=== PATIENT | male | born 1965 | race Caucasian/White ===

== ENCOUNTER → 2017-02-28 | Outpatient (CLI) | payer OTHER ==
--- NOTE | 2017-02-28 11:37 | XR ---
EXAMINATION TYPE: XR cervical spine comp DATE OF EXAM: 02/28/2017 TECHNIQUE: Frontal, lateral, oblique, swimmers, and open mouth view of the cervical spine are obtaine d. HISTORY: R52 neck pain COMPARISON: None FINDINGS: The cervical spine is visualized in its entirety from C1 thru the top of T1 level, it is s atisfactory in alignment without evidence of acute fracture or dislocation. The pre-vertebral soft t issue appears within normal limits. The C1-C2 articulation is within normal limits on the open mouth view. Multilevel uncovertebral hypertrophy and facet arthropathy are identified. This results in mild to mo derate neural foraminal narrowing at C5-6 on the right and on the left. There is also straightening o f the usual cervical lordosis. Intervertebral disc space narrowing is seen at C5-C6. Incidentally not ed bilateral carotid atheromatous changes are seen, mild in degree. IMPRESSION: 1. No acute fracture or dislocation is seen in the cervical spine. 2. Mild multilevel degenerative changes of the cervical spine most exaggerated at C5-C6 resulting in bilateral mild to moderate neural foraminal narrowing. MR could be performed to evaluate for disc her niation and more accurate degree of stenosis in addition to spinal canal stenosis. 3. Straightening of usual cervical lordosis that may relate to muscular spasm or patient positioning. 4. Incidentally noted bilateral carotid atherosclerosis, mild in degree. Carotid ultrasound could be performed to evaluate for degree of stenosis of clinically indicated.
--- NOTE | 2017-02-28 12:24 | XR ---
EXAMINATION TYPE: XR thoracic spine 2V DATE OF EXAM: 02/28/2017 CLINICAL HISTORY: Fall with mid back pain. TECHNIQUE: Frontal, lateral, and swimmer's view of thoracic spine are obtained. COMPARISON: None. FINDINGS: Thoracic spine show satisfactory alignment without evidence of acute fracture or dislocatio n. Vertebral body heights and disc space heights are preserved. Visualized ribs are unremarkable. IMPRESSION: No acute fracture or dislocation is seen in the thoracic spine. MRI could be performed t o evaluate for disc herniation or spinal canal stenosis is clinically indicated.
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
== END | disposition home or self-care (01) ==
LOC: RADXRMAIN 10:04
PROVIDERS: ATTEND Internal Medicine
DX: M99.71 Connective tissue and disc stenosis of intervertebral foramina of cervical region (principal); M47.812 Spondylosis without myelopathy or radiculopathy, cervical region; M46.97 Unspecified inflammatory spondylopathy, lumbosacral region
CPT/HCPCS: 72050; 72070; 72100

== ENCOUNTER → 2017-03-22 | Outpatient (CLI) | payer OTHER ==
--- NOTE | 2017-03-22 21:01 | MR ---
EXAMINATION TYPE: MR cspine/lspine wo con DATE OF EXAM: 03/22/2017 COMPARISON: MRI lumbar spine August 02, 2010. Plain film cervical and lumbar spine February 28, 2017. HISTORY: Low back pain, Neck pain per order. Headache with neck pain since 2010 causing pain and weak ness into both arms per patient. Low back pain since 1999 and causing pain into left lower extremity per patient. TECHNIQUE: Multiplanar, multisequence imaging of the cervical and lumbar spine are performed without IV contrast. FINDINGS: C-SPINE: FINDINGS: Sagittal images of the cervical spine show the craniocervical junction to appear within nor mal limits. The cervical and upper thoracic spinal cord is normal in caliber and signal. Vertebral alignment is stable and straightened with grade 1 retrolisthesis C5 on C6 redemonstrated. The verteb ral body heights remain normal. There is mild to moderate disc space narrowing C5-C6 level redemonst rated. There are posterior disc herniations mildly effacing the anterior thecal sac at C3-C4 through C6-C7 levels. The bone marrow signal intensity is within normal limits. No significant spurring is se en. Axial images show the C2-C3 level to appear within normal limits. Axial images at C3-C4 levels show small central disc protrusion mildly effacing the anterior thecal s ac, bilateral neural foramina are patent. Axial images at C4-C5 level shows broad-based right paracentral disc protrusion mildly effacing the a nterior thecal sac. There are mild uncovertebral facet degenerative changes causing mild right greate r than left neural foraminal narrowing. Axial images at C5-C6 level show more prominent broad-based posterior disc protrusion effacing the an terior thecal sac and causing moderate to advanced bilateral neural foraminal narrowing. Axial images at C6-C7 level show prominent broad-based right paracentral disc protrusion effacing the anterolateral thecal sac and causing mild bilateral neural foraminal narrowing. Axial images at C7-T1 level are both within normal limits. IMPRESSION: Straightening of cervical spine with multilevel degenerative changes seen, most prominent findings are C5-C6 level as detailed above. L-SPINE: Sagittal images of the lumbar spine show vertebral body heights and alignment to appear stable and sa tisfactory. There is persistent disc desiccation with mild disc space narrowing at L5-S1 level otherw ise the intervertebral discs demonstrate normal heights and hydration. There is increased signal post eriorly consistent with annular tear L5-S1 level redemonstrated. No suspicious posterior disc herniat ions are seen on sagittal images. The conus medullaris remains normal in position and signal ending a t the L1 level. The bone marrow signal intensity is within normal limits. No significant spurring is present. Axial images show the T12-L1, L1-L2, L2-L3, and L3-L4 levels all to remain within normal limits. Axial images at L4-L5 level redemonstrated mild facet degenerative changes bilaterally but the spinal canal is preserved and bilateral neural foramina are patent. Axial images at L5-S1 level shows mild facet degenerative changes bilaterally. There is right paracen tral disc protrusion seen but the spinal canal is grossly preserved. There is mild right-sided neural foraminal narrowing redemonstrated. Left-sided neural foramen is patent. No suspicious retroperitoneal findings seen. Previously visualized thin walled simple cyst medially r ight kidney is not as well-seen on current study. IMPRESSION: Straightening of lumbar spine with degenerative changes lower lumbar levels most prominen t at L5-S1 level again seen. No significant progression from prior study.
== END | disposition home or self-care (01) ==
LOC: RADMRIMAIN 17:07
PROVIDERS: ATTEND Internal Medicine
DX: M47.812 Spondylosis without myelopathy or radiculopathy, cervical region (principal); M47.817 Spondylosis without myelopathy or radiculopathy, lumbosacral region
CPT/HCPCS: 72141; 72148

== ENCOUNTER → 2018-05-17 | Outpatient (CLI) | payer OTHER ==
--- NOTE | 2018-05-18 09:23 | MR ---
EXAMINATION TYPE: MR knee LT wo con DATE OF EXAM: 05/17/2018 COMPARISON: None HISTORY: LT KNEE PAIN TECHNIQUE: Multiplanar, multisequence imaging of the left knee is performed without IV contrast. FINDINGS: MEDIAL MENISCUS: Abnormal increased signal within the posterior horn of the lateral meniscus shows a complex pattern, is diffuse signal with extension to the articular surface and there is likely a post erior meniscal cyst LATERAL MENISCUS: Anterior and posterior horns are intact without tear. CRUCIATE LIGAMENTS: The anterior and posterior cruciate ligaments are intact and unremarkable. COLLATERAL LIGAMENTS: Fluid signal is present along the medial collateral ligament compatible with st rain, this thickening and some intrasubstance signal suggestive of possible partial tear EXTENSOR MECHANISM: Visualized quadriceps and patellar tendons are intact. EFFUSION: Small suprapatellar joint effusion POPLITEAL CYST: Small semimembranosus gastrocnemius cyst. TRICOMPARTMENT SPACES: CARTILAGE: Some thinning of the cartilage present in the medial compartment BONE MARROW SIGNAL: Reactive marrow signal changes present along the proximal tibia posteriorly OTHER: There is some subcutaneous edema. IMPRESSION: Tear of the posterior horn of the medial meniscus. Strain and possible partial tear medial collateral ligament
== END | disposition home or self-care (01) ==
LOC: RADMRIMAIN 13:56
PROVIDERS: ATTEND Internal Medicine
DX: S83.242A Other tear of medial meniscus, current injury, left knee, initial encounter (principal)

== ENCOUNTER → 2018-05-31 | Outpatient (CLI) | payer OTHER ==
--- NOTE | 2018-05-31 15:52 | MR ---
EXAMINATION TYPE: MR cspine/lspine wo con DATE OF EXAM: 05/31/2018 COMPARISON: None HISTORY: Dorsalgia, unspecified / Neck pain TECHNIQUE: Multiplanar, multisequence imaging of the cervical and lumbar spine is performed without I V contrast. FINDINGS: Cervical spine: There is slight reversal of the usual cervical lordosis throughout the spine. Cervical cord is unrema rkable in signal. Bone marrow is lower limits of normal. C2-C3: No significant disc disease, spinal canal stenosis nor neural foraminal narrowing. C3-C4: There is a small posterior disc osteophyte complex. No neural foraminal narrowing or spinal ca nal stenosis. C4-C5: There is uncovertebral hypertrophy and a small posterior disc osteophyte complex with a broad- based disc bulge resulting in slight narrowing of the ventral subarachnoid space and minimal right ne ural foraminal narrowing. Left neural foramen is patent. C5-C6: There is a broad-based disc bulge and posterior disc osteophyte complex as well as uncovertebr al hypertrophy creating mild bilateral neural foraminal narrowing and mild spinal canal stenosis. C6-C7: There is a right paracentral disc herniation and uncovertebral hypertrophy creating mild bilat eral neural foraminal narrowing and mild spinal canal stenosis. C7-T1: No significant disc disease, spinal canal stenosis nor neural foraminal narrowing. Lumbar spine: There is straightening of usual lumbar lordosis. Lumbar vertebral bodies maintain normal vertebral ginny dy heights and alignment. Bone marrow signal is slightly diminished however overall within normal vega its as the vertebral bodies are hyperintense in comparison to the intervertebral disc spaces. Conus m edullaris is unremarkable terminating at L1. Disc desiccation is seen at L5-S1. L1-L2: Mild broad-based disc bulge is seen without spinal canal stenosis or neural foraminal narrowin g. L2-L3: No significant disc disease, spinal canal stenosis nor neural foraminal narrowing. L3-L4: Small broad-based disc bulge and minimal facet arthropathy without spinal canal stenosis nor n eural foraminal narrowing. L4-L5: There is a broad-based disc bulge, facet arthropathy and ligamentum flavum buckling creating m ild bilateral neural foraminal narrowing and mild spinal canal stenosis. L5-S1: There is a right eccentric disc bulge and right paracentral annular tear. This results in mild bilateral neural foraminal narrowing, right greater than left and slight narrowing of the ventral sanchez barachnoid space without significant spinal canal stenosis. Mild facet arthropathy is also seen. IMPRESSION: 1. Ligamentum flavum buckling, facet arthropathy and a broad-based disc bulge at L4-L5 creating mild spinal canal stenosis. 2. Mild multilevel degenerative disc disease of the lumbar spine results in mild bilateral neural for aminal narrowing at L4-L5 and L5-S1. 3. Straightening of usual lumbar and cervical lordosis may relate to muscular sprain/spasm or patient positioning. 4. Small right paracentral disc herniation at C6-C7 in combination with degenerative changes creates mild spinal canal stenosis and mild bilateral neural foraminal narrowing. 5. Degenerative disc disease at C4-C5 and C5-C6 resulting in minimal right neural foraminal narrowing at C4-C5, mild bilateral neural foraminal narrowing at C5-C6 and mild spinal canal stenosis at C5-C6 .
== END | disposition home or self-care (01) ==
LOC: RADMRIMAIN 12:20
PROVIDERS: ATTEND Internal Medicine
DX: M48.02 Spinal stenosis, cervical region (principal); M48.061 Spinal stenosis, lumbar region without neurogenic claudication; M50.223 Other cervical disc displacement at C6-C7 level; M51.26 Other intervertebral disc displacement, lumbar region; M47.812 Spondylosis without myelopathy or radiculopathy, cervical region; M24.28 Disorder of ligament, vertebrae; M46.96 Unspecified inflammatory spondylopathy, lumbar region
CPT/HCPCS: 72141; 72148

== ENCOUNTER 2020-07-06 23:43 | Inpatient (IN) | payer OTHER ==
[2020-07-07] MEDS ORDERED: ONDANSETRON 4 MG/2 ML VIAL IVP STA (00:24)
[2020-07-07] MEDS ORDERED: MORPHINE SULFATE 4 MG/ML SYRINGE IVP STA ×2 (00:24→02:09)
--- NOTE | 2020-07-07 00:54 | XR ---
EXAM: XR Chest, 1 View CLINICAL HISTORY: ITS.REASON XR Reason: chest pain TECHNIQUE: Frontal view of the chest. COMPARISON: No relevant prior studies available. FINDINGS: Lungs: Unremarkable. No consolidation. Pleural space: Unremarkable. No pneumothorax. Heart: Unremarkable. No cardiomegaly. Mediastinum: Unremarkable. Bones/joints: Unremarkable. IMPRESSION: Normal chest x-ray.
[2020-07-07 01:05] LABS: Basophils # (A) 0.1 k/uL (0-0.2); Basophils % (A) 1 %; Eosinophils # (A) 0.2 k/uL (0-0.7); Eosinophils % (A) 2 %; HCT 46.6 % (39.0-53.0); HGB 16.4 gm/dL (13.0-17.5); Lymphocytes % (A) 23 %; MCH 34.1 pg (25.0-35.0); MCHC 35.2 g/dL (31.0-37.0); MCV 96.8 fL (80.0-100.0); Mean Platelet Volume 7.3; Monocytes # (A) 0.6 k/uL (0-1.0); Monocytes % (A) 6 %; Neutrophils # (A) 5.7 k/uL (1.3-7.7); Neutrophils % (A) 66 %; Platelet Count 226 k/uL (150-450); RBC 4.81 m/uL (4.30-5.90); RDW 12.4 % (11.5-15.5); WBC 8.7 k/uL (3.8-10.6)
[2020-07-07 01:15] LABS: Albumin 4.7 g/dL (3.5-5.0); Calcium 9.6 mg/dL (8.4-10.2); Potassium 3.8 mmol/L (3.5-5.1); Total Bilirubin 0.9 mg/dL (0.2-1.3); Total Protein 7.2 g/dL (6.3-8.2)
[2020-07-07 01:20] LABS: INR 0.9 (<1.2); Prothrombin Time 10.2 sec (9.0-12.0)
[2020-07-07 01:41] LABS: Partial Thromboplastin Time 19.1 sec (22.0-30.0)
--- NOTE | 2020-07-07 01:53 | ED ---
General Adult HPI - General Source: patient, EMS Mode of arrival: EMS Limitations: no limitations <Angie Booth - Last Filed: 07/07/20 02:24> <Pk Farooq - Last Filed: 07/09/20 04:15> - General Chief complaint: Anxiety Stated complaint: Anxiety Time Seen by Provider: 07/06/20 23:47 - History of Present Illness Initial comments: 55 year-old male patient presents to the emergency department today for eval uation of chest pain and some shortness of breath. Patient states he does get some sweats when the pain starts. States his been having the pain for quite some time and did go to [facility] on 07/04/20 for similar symptoms states he was admitted to the hospital. States he "freaked out" when they told him he would have to be on blood thinners for the rest of his life so he left AMA. Patient states that his symptoms worsened tonight about two hours ago. States that he is having burning pain across his chest. Denies radiation through to his back. Patient denies any recent rash, fever, chills, cough, abdominal pain, nausea, vomiting, diarrhea, constipation, back pain, numbness, tingling, dizziness, weakness, hematuria, dysuria, urinary urgency, urinary frequency, headache, visual changes, or any other complaints. (Angie Booth) - Related Data Home Medications Medication Instructions Recorded Confirmed oxyCODONE HCL/ACETAMINOPHEN 1 tab PO Q6HR 07/07/20 07/07/20 [Percocet 10-325 mg] Allergies Allergy/AdvReac Type Severity Reaction Status Date / Time No Known Allergies Allergy Verified 07/07/20 07:06 Review of Systems ROS Other: All systems not noted in ROS Statement are negative. <Angie Booth - Last Filed: 07/07/20 02:24> ROS Other: All systems not noted in ROS Statement are negative. <Pk Farooq - Last Filed: 07/09/20 04:15> ROS Statement: Those systems with pertinent positive or pertinent negative responses have been documented in the HPI. Past Medical History Past Medical History: Hypertension History of Any Multi-Drug Resistant Organisms: None Reported Past Surgical History: No Surgical Hx Reported Past Psychological History: Anxiety Smoking Status: Current every day smoker Past Alcohol Use History: Occasional <Angie Booth - Last Filed: 07/07/20 02:24> General Exam Limitations: no limitations General appearance: alert, in no apparent distress, other (This is a well- developed, well-nourished adult male patient in no acute distress. Vital signs upon presentation are temperature 98.5F, pulse 112, respirations 18, blood pressure 126/52, pulse ox 97% on room air.) Eye exam: Present: normal appearance, PERRL, EOMI. Absent: scleral icterus, conjunctival injection, periorbital swelling ENT exam: Present: normal exam, normal oropharynx, mucous membranes moist Respiratory exam: Present: normal lung sounds bilaterally. Absent: respiratory distress, wheezes, rales, rhonchi, stridor Cardiovascular Exam: Present: regular rate, normal rhythm, normal heart sounds. Absent: systolic murmur, diastolic murmur, rubs, gallop, clicks GI/Abdominal exam: Present: soft, normal bowel sounds. Absent: distended, tenderness, guarding, rebound, rigid Neurological exam: Present: alert, oriented X3, CN II-XII intact Psychiatric exam: Present: normal affect, normal mood Skin exam: Present: warm, dry, intact, normal color. Absent: rash <Angie Booth M - Last Filed: 07/07/20 02:24> Course Vital Signs 07/06/20 07/07/20 07/07/20 23:48 04:00 05:53 Temperature 98.5 F Pulse Rate 112 H 59 L 86 Respiratory 18 17 18 Rate Blood Pressure 126/52 131/87 131/90 O2 Sat by Pulse 97 98 99 Oximetry 07/07/20 07/07/20 07/07/20 06:00 07:19 08:28 Temperature Pulse Rate 87 101 H 105 H Respiratory 16 20 20 Rate Blood Pressure 141/81 131/90 141/89 O2 Sat by Pulse 98 92 L Oximetry 07/07/20 07/07/20 11:00 11:52 Temperature 98.6 F Pulse Rate 101 H 109 H Respiratory 20 17 Rate Blood Pressure 117/79 136/96 O2 Sat by Pulse 95 93 L Oximetry EKG Findings - EKG Comments: EKG Findings:: EKG obtained at 00 48 shows sinus tachycardia with a ventricular rate of 108, OK interval 146, QRS duration 78, QT 358, QTC 479. No evidence of ST elevation or depression. <Angie Booth - Last Filed: 07/07/20 02:24> Medical Decision Making - Lab Data Result diagrams: 07/07/20 00:56 07/07/20 00:56 - Radiology Data Radiology results: report reviewed, image reviewed <EmmyAngie Carver - Last Filed: 07/07/20 02:24> - Lab Data Result diagrams: 07/07/20 00:56 07/07/20 00:56 <Pk Farooq - Last Filed: 07/09/20 04:15> - Medical Decision Making 55 year-old male patient, chronic alcohol abuse, presenting to the emergency department for evaluation of chest pain and shortness of breath. Symptoms worsened a couple of hours prior to arrival. Patient went into [facility] on 07/04/20 with new onset afib with rates in the 170s, was found to have trops trending up from 0.05-0.146. He was admitted and had cardiology evaluation but left AMA prior to full eval and treatment plan. He did undergo CTA of the chest which was reportedly negative, ECHO of the heart, but unfortunately the full fax of records did not come through so do not have report. Tonight his alcohol level is 202. Trop elevated at 0.039. He will be admitted to the hospital. Had lengthy discussion regarding importance of completing his hospital stay and following recommended treatment. He is agreeable with this plan. Case discussed with my attending Dr. Farooq. (Angie Booth) I saw this patient in conjunction with the physician rehabilitation assistant. I performed independent history and physical exam. Agree with case management. (Pk Farooq) - Lab Data Lab Results 07/07/20 07/07/20 07/07/20 Range/Units 00:56 00:56 00:56 WBC 8.7 (3.8-10.6) k/uL RBC 4.81 (4.30-5.90) m/uL Hgb 16.4 (13.0-17.5) gm/dL Hct 46.6 (39.0-53.0) % MCV 96.8 (80.0-100.0) fL MCH 34.1 (25.0-35.0) pg MCHC 35.2 (31.0-37.0) g/dL RDW 12.4 (11.5-15.5) % Plt Count 226 (150-450) k/uL MPV 7.3 Neutrophils % 66 % Lymphocytes % 23 % Monocytes % 6 % Eosinophils % 2 % Basophils % 1 % Neutrophils # 5.7 (1.3-7.7) k/uL Lymphocytes # 2.0 (1.0-4.8) k/uL Monocytes # 0.6 (0-1.0) k/uL Eosinophils # 0.2 (0-0.7) k/uL Basophils # 0.1 (0-0.2) k/uL PT 10.2 (9.0-12.0) sec INR 0.9 (<1.2) APTT 19.1 L (22.0-30.0) sec Sodium 136 L (137-145) mmol/L Potassium 3.8 (3.5-5.1) mmol/L Chloride 103 (98-107) mmol/L Carbon Dioxide 17 L (22-30) mmol/L Anion Gap 16 mmol/L BUN 11 (9-20) mg/dL Creatinine 1.13 (0.66-1.25) mg/dL Est GFR (CKD-EPI)AfAm 86 (>60 ml/min/1.73 sqM) Est GFR (CKD-EPI)NonAf 74 (>60 ml/min/1.73 sqM) Glucose 128 H (74-99) mg/dL Calcium 9.6 (8.4-10.2) mg/dL Magnesium 2.0 (1.6-2.3) mg/dL Total Bilirubin 0.9 (0.2-1.3) mg/dL AST 141 H (17-59) U/L ALT 67 H (4-49) U/L Alkaline Phosphatase 68 (38-126) U/L Troponin I (0.000-0.034) ng/mL Total Protein 7.2 (6.3-8.2) g/dL Albumin 4.7 (3.5-5.0) g/dL Triglycerides (0.0-149.0) mg/dL Cholesterol (0-200) mg/dL LDL Cholesterol, Calc (0.0-131.0) mg/dL VLDL Cholesterol, Calc (5.00-40.00) mg/dL HDL Cholesterol (40.0-60.0) mg/dL Cholesterol/HDL Ratio Lipase 211 (23-300) U/L Serum Alcohol 202 H* mg/dL 07/07/20 07/07/20 Range/Units 00:56 00:56 WBC (3.8-10.6) k/uL RBC (4.30-5.90) m/uL Hgb (13.0-17.5) gm/dL Hct (39.0-53.0) % MCV (80.0-100.0) fL MCH (25.0-35.0) pg MCHC (31.0-37.0) g/dL RDW (11.5-15.5) % Plt Count (150-450) k/uL MPV Neutrophils % % Lymphocytes % % Monocytes % % Eosinophils % % Basophils % % Neutrophils # (1.3-7.7) k/uL Lymphocytes # (1.0-4.8) k/uL Monocytes # (0-1.0) k/uL Eosinophils # (0-0.7) k/uL Basophils # (0-0.2) k/uL PT (9.0-12.0) sec INR (<1.2) APTT (22.0-30.0) sec Sodium (137-145) mmol/L Potassium (3.5-5.1) mmol/L Chloride (98-107) mmol/L Carbon Dioxide (22-30) mmol/L Anion Gap mmol/L BUN (9-20) mg/dL Creatinine (0.66-1.25) mg/dL Est GFR (CKD-EPI)AfAm (>60 ml/min/1.73 sqM) Est GFR (CKD-EPI)NonAf (>60 ml/min/1.73 sqM) Glucose (74-99) mg/dL Calcium (8.4-10.2) mg/dL Magnesium (1.6-2.3) mg/dL Total Bilirubin (0.2-1.3) mg/dL AST (17-59) U/L ALT (4-49) U/L Alkaline Phosphatase (38-126) U/L Troponin I 0.039 H* (0.000-0.034) ng/mL Total Protein (6.3-8.2) g/dL Albumin (3.5-5.0) g/dL Triglycerides 516.0 H (0.0-149.0) mg/dL Cholesterol 252 H (0-200) mg/dL LDL Cholesterol, Calc (0.0-131.0) mg/dL VLDL Cholesterol, Calc (5.00-40.00) mg/dL HDL Cholesterol 41.0 (40.0-60.0) mg/dL Cholesterol/HDL Ratio 6.15 Lipase (23-300) U/L Serum Alcohol mg/dL - Radiology Data Normal chest x-ray. (Angie Booth) Disposition Decision to Admit Reason: Admit from EC Decision Date: 07/07/20 Decision Time: 02:34 <Angie Booth - Last Filed: 07/07/20 02:24> <Pk Farooq - Last Filed: 07/09/20 04:15> Clinical Impression: Chest pain, Elevated troponin Disposition: ADMITTED IP TO THIS [facility] Condition: Serious
[2020-07-07] MEDS ORDERED: ASPIRIN 81 MG PO STA (02:21)
[2020-07-07] MEDS ORDERED: oxyCODONE-APAP 10-325MG 1 EACH TAB PO STA (02:21)
[2020-07-07] MEDS ORDERED: NITROGLYCERIN SL TABS 0.4 MG TAB SUBLINGUAL PRN (02:21)
[2020-07-07] MEDS ORDERED: ENOXAPARIN 100 MG/ML SYRINGE SQ ONE (02:30)
[2020-07-07] MEDS ORDERED: LORazepam 2 MG/ML INJ IV PRN (02:37)
[2020-07-07] MEDS ORDERED: THIAMINE 100 MG/ML 2 ML VIAL IM ONE (02:45)
[2020-07-07] MEDS ORDERED: NICOTINE 21MG/24HR PATCH TRANSDERM STA (03:34)
[2020-07-07] MEDS: LORazepam 2 MG/ML INJ IV PRN ×7 (03:49→17:00)
[2020-07-07] MEDS: oxyCODONE-APAP 10-325MG 1 EACH TAB PO PRN ×4 (06:01→16:59)
--- NOTE | 2020-07-07 11:27 | P.CRDCN ---
History of Present Illness Consult date: 07/07/20 Chief complaint: Chest pain History of present illness: This is a 55-year-old gentleman we consulted to see in the emergency department for abnormal cardiac enzymes. The patient is in withdrawal from alcohol. His alcohol level came in to be very elevated. When he was seen and examined this morning he was very agitated with a sitter in the room. I could not get a detailed history. Currently he denies any symptoms of chest pain or chest d iscomfort. Denies any shortness of breath. No dizziness or lightheadedness or any feeling of heart racing or fluttering or syncope. He presented apparently to another hospital and he was left AMA. The EKG showed sinus rhythm without any significant ST or T-wave abnormalities. The cardiac enzymes were checked and came in to be slightly abnormal. He is in sinus tachycardia which could be causing the elevated troponin but severe underlying coronary artery disease to be ruled out 1 the patient is more stable. As a mentioned earlier currently he is chest pain-free. He denies any fever or chills. Denies any cough or wheezing. Denies any abdominal pain or abdominal discomfort. In the electronic medical records no indication that he is known to have CAD or prior heart catheterization or stress test performed. At this point I would continue a conservative medical approach giving the agitated status of the patient. I am going to add Toprol-XL to the current medical regimen to get the heart rate under control. Aspirin also already added. We'll obtain an echocardiogram was Doppler. Past Medical History Past Medical History: Hypertension History of Any Multi-Drug Resistant Organisms: None Reported Past Surgical History: No Surgical Hx Reported Past Psychological History: Anxiety Smoking Status: Current every day smoker Past Alcohol Use History: Occasional Medications and Allergies Home Medications Medication Instructions Recorded Confirmed Type oxyCODONE HCL/ACETAMINOPHEN 1 tab PO Q6HR 07/07/20 07/07/20 History [Percocet 10-325 mg] Allergies Allergy/AdvReac Type Severity Reaction Status Date / Time No Known Allergies Allergy Verified 07/07/20 07:06 Physical Exam Vitals: Vital Signs Temp Pulse Resp BP Pulse Ox 07/07/20 11:00 101 H 20 117/79 95 07/07/20 08:28 105 H 20 141/89 07/07/20 07:19 101 H 20 131/90 92 L 07/07/20 06:00 87 16 141/81 98 07/07/20 05:53 86 18 131/90 99 07/07/20 04:00 59 L 17 131/87 98 07/06/20 23:48 98.5 F 112 H 18 126/52 97 Intake and Output 07/06/20 07/07/20 07/07/20 22:59 06:59 14:59 Other: Weight 90.718 kg - Constitutional General appearance: no acute distress - Respiratory Respiratory: bilateral: CTA - Cardiovascular Rhythm: regular Heart sounds: normal: S1, S2 Results 07/07/20 00:56 07/07/20 00:56 Cardiac Enzymes 07/07/20 07/07/20 07/07/20 Range/Units 00:56 00:56 04:18 AST 141 H (17-59) U/L Troponin I 0.039 H* 0.042 H* (0.000-0.034) ng/mL 07/07/20 Range/Units 07:14 AST (17-59) U/L Troponin I 0.044 H* (0.000-0.034) ng/mL Coagulation 07/07/20 Range/Units 00:56 PT 10.2 (9.0-12.0) sec APTT 19.1 L (22.0-30.0) sec CBC 07/07/20 Range/Units 00:56 WBC 8.7 (3.8-10.6) k/uL RBC 4.81 (4.30-5.90) m/uL Hgb 16.4 (13.0-17.5) gm/dL Hct 46.6 (39.0-53.0) % Plt Count 226 (150-450) k/uL Comprehensive Metabolic Panel 07/07/20 Range/Units 00:56 Sodium 136 L (137-145) mmol/L Potassium 3.8 (3.5-5.1) mmol/L Chloride 103 (98-107) mmol/L Carbon Dioxide 17 L (22-30) mmol/L BUN 11 (9-20) mg/dL Creatinine 1.13 (0.66-1.25) mg/dL Glucose 128 H (74-99) mg/dL Calcium 9.6 (8.4-10.2) mg/dL AST 141 H (17-59) U/L ALT 67 H (4-49) U/L Alkaline Phosphatase 68 (38-126) U/L Total Protein 7.2 (6.3-8.2) g/dL Albumin 4.7 (3.5-5.0) g/dL Current Medications Generic Name Dose Route Start Last Admin Trade Name Freq PRN Reason Stop Dose Admin Aspirin 325 mg 07/08/20 09:00 Aspirin 325 Mg Tab PO DAILY TAYLOR Lorazepam 1 mg 07/07/20 02:37 07/07/20 07:23 Lorazepam 2 Mg/Ml Inj IV 1 mg Q2HR PRN Administration CIWA 8 or 9 Lorazepam 1 mg 07/07/20 02:37 07/07/20 08:27 Lorazepam 2 Mg/Ml Inj IV 1 mg Q1HR PRN Administration CIWA 10 to 15 Lorazepam 2 mg 07/07/20 02:37 07/07/20 06:11 Lorazepam 2 Mg/Ml Inj IV 07/09/20 02:37 2 mg Q10M PRN Administration CIWA 16 or higher Metoprolol Succinate 25 mg 07/08/20 09:00 Metoprolol Succinate (Er) 25 Mg Tab.Er.24h PO DAILY TAYLOR Nitroglycerin 0.4 mg 07/07/20 02:21 Nitroglycerin Sl Tabs 0.4 Mg Tab SUBLINGUAL Q5M PRN Chest Pain Oxycodone/Acetaminophen 1 each 07/07/20 02:21 Oxycodone-Apap 10-325mg 1 Each Tab PO Q6H PRN Pain Thiamine HCl 100 mg 07/07/20 17:30 Thiamine 100 Mg Tab PO BID-W/MEALS TAYLOR Intake and Output 07/06/20 07/07/20 07/07/20 22:59 06:59 14:59 Other: Weight 90.718 kg 07/07/20 00:56 07/07/20 00:56 Assessment and Plan Assessment: I have no idea assessment #1 alcohol intoxication. Currently the patient is going into withdrawal face #2 sinus tachycardia related to the above #3 mildly abnormal troponin could be related to sinus tachycardia but severe CAD to be ruled out Plan #1 continue aspirin #2 add Toprol-XL to the current medical regimen #3 obtain an echocardiogram was Doppler #4 follow-up with the patient
--- NOTE | 2020-07-07 14:57 | P.HPIM ---
History of Present Illness 55-year-old male presented with the feelings of palpitations and heart racing and fluttering. 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 Patient started drinking again. At [facility] patient was treated for atrial fibrillation and was being treated for alcohol withdrawals. Patient had an echocardiogram there which showed normal ejection fraction without any significant valvular abnormalities were almost patient here is found to have m ildly elevated troponins in the range of 0.039- 0.044. Patient was evaluated by cardiology. Patient was not started on anti-correlation because of his alcohol abuse history. Patient this time is found to have sinus tachycardia. Patient is bit agitated may have some withdrawals going on at this time. Review of Systems REVIEW OF SYSTEMS: CONSTITUTIONAL: No fever, no malaise, no fatigue. HEENT: No recent visual problems or hearing problems. Denied any sore throat. CARDIOVASCULAR: No chest pain, orthopnea, PND, no syncope. PULMONARY: No shortness of breath, no cough, no hemoptysis. GASTROINTESTINAL: No diarrhea, no nausea, no vomiting, no abdominal pain. NEUROLOGICAL: No headaches, no weakness, no numbness. HEMATOLOGICAL: Denies any bleeding or petechiae. GENITOURINARY: Denies any burning micturition, frequency, or urgency. MUSCULOSKELETAL/RHEUMATOLOGICAL: Denies any joint pain, swelling, or any muscle pain. ENDOCRINE: Denies any polyuria or polydipsia. The rest of the 14-point review of systems is negative. Past Medical History Past Medical History: Hypertension Additional Past Medical History / Comment(s): Pt recently hospitalized on 07/04/20 at [facility] for afib and elevated troponins/pt left AMA. Other hx: Chronic cervical and back pain, L knee pain/meniscus tear. History of Any Multi-Drug Resistant Organisms: None Reported Past Surgical History: No Surgical Hx Reported Past Anesthesia/Blood Transfusion Reactions: Unable to Obtain Additional Past Anesthesia/Blood Transfusion Reaction / Comment(s): Pt states he has never had surgery. Smoking Status: Current every day smoker - Past Family History Father Family Medical History: Coronary Artery Disease (CAD) Additional Family Medical History / Comment(s): Father is 82 yrs old. He had CABG Mother Family Medical History: Cancer Additional Family Medical History / Comment(s): Mother of ovarian cancer at the age of 63 yrs. Medications and Allergies Home Medications Medication Instructions Recorded Confirmed Type oxyCODONE HCL/ACETAMINOPHEN 1 tab PO Q6HR 07/07/20 07/07/20 History [Percocet 10-325 mg] Allergies Allergy/AdvReac Type Severity Reaction Status Date / Time No Known Allergies Allergy Verified 07/07/20 07:06 Physical Exam Vitals: Vital Signs Temp Pulse Resp BP Pulse Ox 07/07/20 11:52 98.6 F 109 H 17 136/96 93 L 07/07/20 11:00 101 H 20 117/79 95 07/07/20 08:28 105 H 20 141/89 07/07/20 07:19 101 H 20 131/90 92 L 07/07/20 06:00 87 16 141/81 98 07/07/20 05:53 86 18 131/90 99 07/07/20 04:00 59 L 17 131/87 98 07/06/20 23:48 98.5 F 112 H 18 126/52 97 Intake and Output 07/06/20 07/07/20 07/07/20 22:59 06:59 14:59 Other: Weight 90.718 kg 90.718 kg PHYSICAL EXAMINATION: GENERAL: The patient is alert and oriented x3, not in any acute distress. Well developed, well nourished. HEENT: Pupils are round and equally reacting to light. EOMI. No scleral icterus. No conjunctival pallor. Normocephalic, atraumatic. No pharyngeal erythema. No thyromegaly. CARDIOVASCULAR: S1 and S2 present. No murmurs, rubs, or gallops. PULMONARY: Chest is clear to auscultation, no wheezing or crackles. ABDOMEN: Soft, nontender, nondistended, normoactive bowel sounds. No palpable organomegaly. MUSCULOSKELETAL: No joint swelling or deformity. EXTREMITIES: No cyanosis, clubbing, or pedal edema. NEUROLOGICAL: Gross neurological examination did not reveal any focal deficits. SKIN: No rashes. Results CBC & Chem 7: 07/07/20 00:56 07/07/20 00:56 Labs: Abnormal Lab Results - Last 24 Hours (Table) 07/07/20 07/07/20 07/07/20 Range/Units 00:56 00:56 00:56 APTT 19.1 L (22.0-30.0) sec Sodium 136 L (137-145) mmol/L Carbon Dioxide 17 L (22-30) mmol/L Glucose 128 H (74-99) mg/dL AST 141 H (17-59) U/L ALT 67 H (4-49) U/L Troponin I 0.039 H* (0.000-0.034) ng/mL Serum Alcohol 202 H* mg/dL 07/07/20 07/07/20 Range/Units 04:18 07:14 APTT (22.0-30.0) sec Sodium (137-145) mmol/L Carbon Dioxide (22-30) mmol/L Glucose (74-99) mg/dL AST (17-59) U/L ALT (4-49) U/L Troponin I 0.042 H* 0.044 H* (0.000-0.034) ng/mL Serum Alcohol mg/dL Thrombosis Risk Factor Assmnt - Choose All That Apply Any of the Below Risk Factors Present?: Yes Each Factor Represents 1 point: Age 41-60 years, Obesity (BMI >25) Other Risk Factors: No Other congenital or acquired thrombophilia - If yes, enter type in comment: No Thrombosis Risk Factor Assessment Total Risk Factor Score: 2 Thrombosis Risk Factor Assessment Level: Low Risk Assessment and Plan Plan: -Mildly elevated troponins: Probably secondary to his tachycardia and atrial fibrillation patient was evaluated by cardiology. Patient is being started on metoprolol. 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
[2020-07-07] MEDS: THIAMINE 100 MG TAB PO SCH (17:00)
[2020-07-07] MEDS: PANTOPRAZOLE 40 MG/10 ML VIAL IVP SCH (17:00)
[2020-07-08] MEDS: oxyCODONE-APAP 10-325MG 1 EACH TAB PO PRN ×4 (05:34→22:03)
[2020-07-08] MEDS: THIAMINE 100 MG TAB PO SCH ×2 (05:36→17:02)
[2020-07-08] MEDS: ENOXAPARIN 40 MG/0.4 ML SYRINGE SQ SCH (08:56)
[2020-07-08] MEDS: PANTOPRAZOLE 40 MG/10 ML VIAL IVP SCH (08:56)
[2020-07-08] MEDS ORDERED: METOPROLOL SUCCINATE (ER) 25 MG TAB.ER.24H PO SCH (09:00)
[2020-07-08] MEDS ORDERED: ASPIRIN 325 MG TAB PO SCH (09:00)
[2020-07-08 12:20] LABS: Chol/HDL Ratio 6.15
[2020-07-08] MEDS ORDERED: METOPROLOL SUCCINATE (ER) 25 MG TAB.ER.24H PO ONE (12:27)
--- NOTE | 2020-07-08 12:32 | P.PN ---
Subjective This is a pleasant 55-year-old male past medical history significant for a transient episode of atrial fibrillation last week at [facility] and alcohol abuse. He does not follow regularly with ocular care technician. He is seen and examined resting comfortably laying flat in bed in no acute distress. He denies active chest discomfort at this time. He states he did have an episode yesterday. Blood pressure 165/100 heart rate 74 afebrile maintaining oxygen saturation on room air. Echocardiogram has been obtained and will be reviewed. Telemetry tracings reveal persistent sinus mechanism. GENERAL: Well-appearing, well-nourished and in no acute distress. NECK: Supple without JVD or thyromegaly. LUNGS: Breath sounds clear to auscultation bilaterally. Respiration equal and unlabored. No wheezes, rales or rhonchi. HEART: Regular rate and rhythm without murmurs, rubs or gallops. S1 and S2 heard. EXTREMITIES: Normal range of motion, no edema. No clubbing or cyanosis. Peripheral pulses intact. ASSESSMENT Acute alcohol intoxication Mildly elevated troponin secondary to sinus tachycardia Sinus tachycardia Remote history of paroxysmal atrial fibrillation PLAN Increase toprol to 50 mg daily. Decrease aspirin to 81 mg daily. Initiate atorvastatin to 40 mg daily. Echocardiogram has been obtained and will be reviewed. Nurse Practitioner note has been reviewed, I agree with a documented findings and plan of care. Patient was seen and examined. Objective - Vital Signs Vital signs: Vital Signs Temp 98.0 F 07/08/20 11:31 Pulse 74 07/08/20 11:31 Resp 18 07/08/20 11:31 BP 165/100 07/08/20 11:31 Pulse Ox 97 07/08/20 11:31 Intake & Output 07/07/20 07/08/20 07/08/20 18:59 06:59 18:59 Intake Total 480 480 240 Output Total 250 Balance 480 230 240 Weight 90.718 kg 95 kg Intake: Oral 480 480 240 Output: Urine 250 Other: # Voids 3 - Labs CBC & Chem 7: 07/07/20 00:56 07/07/20 00:56 Labs: Abnormal Lab Results - Last 24 Hours (Table) 07/07/20 Range/Units 00:56 Triglycerides 516.0 H (0.0-149.0) mg/dL Cholesterol 252 H (0-200) mg/dL
[2020-07-08 12:41] VITALS: BMI 31.8
[2020-07-08] MEDS: NICOTINE 14MG/24HR PATCH TRANSDERM SCH (12:51)
--- NOTE | 2020-07-08 12:55 | P.PN ---
Subjective 55-year-old male presented with the feelings of palpitations and heart racing and fluttering. 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 Patient started drinking again. At [facility] patient was treated for atrial fibrillation and was being treated for alcohol withdrawals. Patient had an echocardiogram there which showed normal ejection fraction without any significant valvular abnormalities were almost patient here is found to have mildly elevated troponins in the range of 0.039- 0.044. Patient was evaluated by cardiology. Patient was not started on anti-correlation because of his alcohol abuse history. Patient this time is found to have sinus tachycardia. Patient is bit agitated may have some withdrawals going on at this time. 07/08/2020 Patient is presently not in atrial fibrillation patient heart rate is well controlled at this time. Patient is comparing of back pain and requesting Percocet. Patient wanted for withdrawals for 1 more night doesn't have withdrawals probably can be discharged tomorrow. Constitutional: Denied any fatigue denied any fever. Cardio vascular: denied any chest pain, palpitations Gastrointestinal denied any nausea vomiting Pulmonary: Denied any shortness of breath cough Neurologic denied any new focal deficits All inpatient medications were reviewed and appropriate changes in these medications as dictated in the interval history and assessment and plan. Objective - Vital Signs Vital signs: Vital Signs Temp 98.0 F 07/08/20 11:31 Pulse 74 07/08/20 11:31 Resp 18 07/08/20 11:31 BP 165/100 07/08/20 11:31 Pulse Ox 97 07/08/20 11:31 Intake & Output 07/07/20 07/08/20 07/08/20 18:59 06:59 18:59 Intake Total 480 480 240 Output Total 250 Balance 480 230 240 Weight 90.718 kg 95 kg 95 kg Intake: Oral 480 480 240 Output: Urine 250 Other: # Voids 3 - Exam PHYSICAL EXAMINATION: GENERAL: The patient is alert and oriented x3, not in any acute distress. Well developed, well nourished. HEENT: Pupils are round and equally reacting to light. EOMI. No scleral icterus. No conjunctival pallor. Normocephalic, atraumatic. No pharyngeal erythema. No thyromegaly. CARDIOVASCULAR: S1 and S2 present. No murmurs, rubs, or gallops. PULMONARY: Chest is clear to auscultation, no wheezing or crackles. ABDOMEN: Soft, nontender, nondistended, normoactive bowel sounds. No palpable organomegaly. MUSCULOSKELETAL: No joint swelling or deformity. EXTREMITIES: No cyanosis, clubbing, or pedal edema. NEUROLOGICAL: Gross neurological examination did not reveal any focal deficits. SKIN: No rashes. - Labs CBC & Chem 7: 07/07/20 00:56 07/07/20 00:56 Labs: Abnormal Lab Results - Last 24 Hours (Table) 07/07/20 Range/Units 00:56 Triglycerides 516.0 H (0.0-149.0) mg/dL Cholesterol 252 H (0-200) mg/dL Assessment and Plan Plan: -Mildly elevated troponins: Probably secondary to his tachycardia and atrial fibrillation patient was evaluated by cardiology. Patient is on metoprolol succinate. 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 the past considering his alcohol abuse history patient is not being started on anti-coagulation at this time patient was later sinus tachycardia for which patient is on Toprol-XL this is probably secondary to his alcohol withdrawal -Alcohol withdrawal patient will be continued on Ativan alcohol withdrawal protocol present he doesn't have any withdrawals will be monitored one more night if he doesn't have significant withdrawals probably can be discharged tomorrow -Possible alcoholic gastritis for which patient was started on Protonix -Continued nicotine use: Counseling was provided -Due to prophylaxis with Lovenox
--- NOTE | 2020-07-08 16:00 | ECHOF ---
Referral Reason:acs MEASUREMENTS -------- HEIGHT: 172.7 cm WEIGHT: 90.7 kg BP: IVSd: 1.8 cm (0.6 - 1.1) LVIDd: 4.2 cm (3.9 - 5.3) LVPWd: 1.7 cm (0.6 - 1.1) EDV(Teich): 79 ml IVSs: 2.1 cm LVIDs: 3.4 cm LVPWs: 1.3 cm %IVS Thck: 20 % ESV(Teich): 48 ml EF(Teich): 39 % %FS: 19 % SV(Teich): 31 ml LALs A4C: 5.7 cm LAAs A4C: 21.4 cm LAESV A-L A4C: 69 ml LAESV MOD A4C: 66 ml Ao Diam: 2.9 cm (2.0 - 3.7) AV Cusp: 1.9 cm (1.5 - 2.6) EPSS: 0.3 cm MV E Robert: 0.45 m/s MV DecT: 238 ms MV Dec [place]: 1.9 m/s MV A Robert: 0.89 m/s MV E/A Ratio: 0.50 MV PHT: 69 ms LVOT Vmax: 3.31 m/s LVOT maxP.27 mmHg LVOT Vmax: 3.23 m/s LVOT Vmean: 2.03 m/s LVOT maxP.31 mmHg LVOT meanP.82 mmHg LVOT Env.Ti: 200 ms LVOT VTI: 40.4 cm TR Vmax: 3.28 m/s TR maxP.14 mmHg RAP: 5.00 mmHg RVSP: 48.14 mmHg MV EF SLOPE: 86.37 mm/s (70 - 150) MV EXCURSION: 21.87 mm (> 18.000) FINDINGS -------- Sinus rhythm. This was a technically good study. There is severe concentric left ventricular hypertrophy. Overall left ventricular systolic function is normal with, an EF between 65 - 70 %. Moderate ERNIE with peak LVOT gradient of {LVOT max 56.63PG & mean 24.21mmHg}. The right ventricle is normal in size. The left atrial size is normal. The right atrial size is normal. The aortic valve is trileaflet, and appears structurally normal. No aortic stenosis or regurgitation. Mild mitral regurgitation is present. Mild tricuspid regurgitation present. There is mild to moderate pulmonary hypertension. The right ventricular systolic pressure, as measured by Doppler, is 48.14mmHg. There is no pulmonic regurgitation present. There is a small pericardial effusion is located near the right atrium. LVH WITH HYPERCONTRACTILE SY STOLIC FUNCTION CONCLUSIONS -------- 1. There is severe concentric left ventricular hypertrophy. 2. Overall left ventricular systolic function is normal with, an EF between 65 - 70 %. 3. Moderate ERNIE with peak LVOT gradient of {LVOT max 56.63PG & mean 24.21mmHg}. 4. The right ventricle is normal in size. 5. The left atrial size is normal. 6. The right atrial size is normal. 7. The aortic valve is trileaflet, and appears structurally normal. No aortic stenosis or regurgitati on. 8. Mild mitral regurgitation is present. 9. Mild tricuspid regurgitation present. 10. There is mild to moderate pulmonary hypertension. 11. The right ventricular systolic pressure, as measured by Doppler, is 48.14mmHg. 12. There is no pulmonic regurgitation present. 13. There is a small pericardial effusion is located near the right atrium. SENIOR WEALTH ADVISOR: Lulu Montoya RDCS
[2020-07-08] MEDS: ATORVASTATIN 40 MG TAB PO SCH (20:36)
[2020-07-08] MEDS: LORazepam 2 MG/ML INJ IV PRN (22:09)
[2020-07-09] MEDS: LORazepam 2 MG/ML INJ IV PRN ×2 (04:38→10:07)
[2020-07-09] MEDS: oxyCODONE-APAP 10-325MG 1 EACH TAB PO PRN ×4 (04:39→23:25)
[2020-07-09] MEDS: THIAMINE 100 MG TAB PO SCH ×2 (05:31→17:37)
[2020-07-09] MEDS: PANTOPRAZOLE 40 MG/10 ML VIAL IVP SCH (10:06)
[2020-07-09] MEDS: ENOXAPARIN 40 MG/0.4 ML SYRINGE SQ SCH (10:06)
[2020-07-09] MEDS: METOPROLOL SUCCINATE (ER) 50 MG TAB.ER.24H PO SCH (10:06)
[2020-07-09] MEDS: ASPIRIN 81 MG PO SCH (10:06)
[2020-07-09] MEDS: NICOTINE 14MG/24HR PATCH TRANSDERM SCH (10:06)
[2020-07-09] MEDS: lisinopriL 5 MG TAB PO SCH (11:47)
--- NOTE | 2020-07-09 12:47 | P.PN ---
Subjective This is a pleasant 55-year-old male past medical history significant for a transient episode of atrial fibrillation last week at [facility] and alcohol abuse. He does not follow regularly with reimbursement representative. He is seen and examined resting comfortably laying flat in bed in no acute distress. He denies active chest discomfort at this time. He states he did have an episode yesterday. Blood pressure 165/100 heart rate 74 afebrile maintaining oxygen saturation on room air. Echocardiogram has been obtained and will be reviewed. Telemetry tracings reveal persistent sinus mechanism. 07/09/2020 Patient was seen and examined resting comfortably laying flat in bed in no acute distress. He states he had episodes of chest discomfort last night and this morning when he walked to the bathroom. He describes the pain as sharp that is worse with exertion and exacerbated by deep breathing. He has been maintaining sinus mechanism on gem stone cutter. Blood pressure 180/99 heart rate 74 afebrile maintaining oxygen saturation on room air. Currently maintained on Toprol 50 mg daily, atorvastatin 40 mg at bedtime and aspirin 81 mg daily. GENERAL: Well-appearing, well-nourished and in no acute distress. NECK: Supple without JVD or thyromegaly. LUNGS: Breath sounds clear to auscultation bilaterally. Respiration equal and unlabored. No wheezes, rales or rhonchi. HEART: Regular rate and rhythm without murmurs, rubs or gallops. S1 and S2 heard. EXTREMITIES: Normal range of motion, no edema. No clubbing or cyanosis. Peripheral pulses intact. ASSESSMENT Acute alcohol intoxication Mildly elevated troponin secondary to sinus tachycardia Chest pain, atypical and respirophasic Sinus tachycardia Remote history of paroxysmal atrial fibrillation PLAN Add lisinopril for blood pressure control. Increase activity and monitor for exertional chest pain. If stable he can be discharged home to follow up for outpatient stress test. Nurse Practitioner note has been reviewed, I agree with a documented findings an d plan of care. Patient was seen and examined. Objective - Vital Signs Vital signs: Vital Signs Temp 98.0 F 07/09/20 08:00 Pulse 74 07/09/20 08:00 Resp 18 07/09/20 08:00 BP 180/99 07/09/20 08:00 Pulse Ox 98 07/09/20 08:00 Intake & Output 07/08/20 07/09/20 07/09/20 18:59 06:59 18:59 Intake Total 840 480 240 Output Total 1 Balance 840 479 240 Weight 95 kg 94.6 kg Intake: Oral 840 480 240 Output: Urine 1 Other: # Voids 4 - Labs CBC & Chem 7: 07/07/20 00:56 07/07/20 00:56 Labs: Abnormal Lab Results - Last 24 Hours (Table) 07/07/20 Range/Units 00:56 Triglycerides 516.0 H (0.0-149.0) mg/dL Cholesterol 252 H (0-200) mg/dL
--- NOTE | 2020-07-09 15:21 | P.PN ---
Subjective Progress Note Date: 07/09/20 Principal diagnosis: Chest pain EtOH abuse and withdrawal 55-year-old male presented with the feelings of palpitations and heart racing and fluttering. 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 Patient started drinking again. At [facility] patient was treated for atrial fibrillation and was being treated for alcohol withdrawals. Patient had an echocardiogram there which showed normal ejection fraction without any significant valvular abnormalities were almost patient here is found to have mildly elevated troponins in the range of 0.039- 0.044. Patient was evaluated by cardiology. Patient was not started on anti-correlation because of his alcohol abuse history. Patient this time is found to have sinus tachycardia. Patient is bit agitated may have some withdrawals going on at this time. 07/09/2020 Patient is seen and evaluated in room at bedside; continues to require Ativan; requesting to be started on Medrol Dosepak claiming it was ordered by PCP but not sure why it was started; once vitamin B12 injection Vital signs are reviewed and reveal elevated blood pressure of 180/99, heart rate of 74 Cardiology on board and recommending to add lisinopril for blood pressure control; increase activity and monitor for exertional chest pain with plans to do outpatient stress test if remains stable We will continue with CIWA protocol; monitor closely and plan to discharge in next 24 hours Objective - Vital Signs Vital signs: Vital Signs Temp 98.0 F 07/09/20 08:00 Pulse 74 07/09/20 08:00 Resp 18 07/09/20 08:00 BP 180/99 07/09/20 08:00 Pulse Ox 98 07/09/20 08:00 Intake & Output 07/08/20 07/09/20 07/09/20 18:59 06:59 18:59 Intake Total 840 480 240 Output Total 1 Balance 840 479 240 Weight 95 kg 94.6 kg Intake: Oral 840 480 240 Output: Urine 1 Other: # Voids 4 - Exam - Constitutional General appearance: Present: average body habitus, cooperative, no acute distress - EENT Eyes: Present: anicteric sclerae, EOMI, PERRLA, normal appearance ENT: Present: hearing grossly normal, normal oropharynx Ears: bilateral: normal - Neck Neck: Present: normal ROM. Absent: lymphadenopathy, rigidity, thyromegaly Carotids: negative: bruit present Thyroid: bilateral: normal size, negative: enlarged, nodule - Respiratory Respiratory: bilateral: CTA, negative: rales, rhonchi, wheezing - Cardiovascular Rhythm: regular Heart sounds: normal: S1, S2 Abnormal Heart Sounds: Absent: systolic murmur, diastolic murmur - Gastrointestinal General gastrointestinal: Present: normal bowel sounds, soft. Absent: distended, organomegaly, tenderness - Genitourinary Genitourinary Comment(s): deferred - Integumentary Integumentary: Present: normal turgor. Absent: jaundiced, rash, ulcer - Neurologic Neurologic: Present: CNII-XII intact. Absent: focal deficits - Musculoskeletal Musculoskeletal: Present: gait normal, strength equal bilaterally - Psychiatric Psychiatric: Present: A&O x's 3, appropriate affect, intact judgment & insight - Labs CBC & Chem 7: 07/07/20 00:56 07/07/20 00:56 Labs: Abnormal Lab Results - Last 24 Hours (Table) 07/07/20 Range/Units 00:56 Triglycerides 516.0 H (0.0-149.0) mg/dL Cholesterol 252 H (0-200) mg/dL Assessment and Plan Assessment: -Mildly elevated troponins: Probably secondary to his tachycardia and atrial fibrillation patient was evaluated by cardiology. Patient is on metoprolol succinate. 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 the past considering his alcohol abuse history patient is not being started on anti-coagulation at this time patient was later sinus tachycardia for which patient is on Toprol-XL this is probably secondary to his alcohol withdrawal -Alcohol withdrawal patient will be continued on Ativan alcohol withdrawal protocol present he doesn't have any withdrawals will be monitored one more night if he doesn't have significant withdrawals probably can be discharged tomorrow -Possible alcoholic gastritis for which patient was started on Protonix -Continued nicotine use: Counseling was provided -Due to prophylaxis with Lovenox
[2020-07-09] MEDS: ATORVASTATIN 40 MG TAB PO SCH (19:54)
[2020-07-10 03:26] VITALS: RESP 16
[2020-07-10] MEDS: oxyCODONE-APAP 10-325MG 1 EACH TAB PO PRN ×2 (06:34→12:35)
[2020-07-10] MEDS: THIAMINE 100 MG TAB PO SCH (06:34)
[2020-07-10] MEDS: NICOTINE 14MG/24HR PATCH TRANSDERM SCH (09:59)
[2020-07-10] MEDS: ENOXAPARIN 40 MG/0.4 ML SYRINGE SQ SCH (09:59)
[2020-07-10] MEDS: ASPIRIN 81 MG PO SCH (09:59)
[2020-07-10] MEDS: METOPROLOL SUCCINATE (ER) 50 MG TAB.ER.24H PO SCH (09:59)
[2020-07-10] MEDS: lisinopriL 5 MG TAB PO SCH (09:59)
[2020-07-10] MEDS: PANTOPRAZOLE 40 MG/10 ML VIAL IVP SCH (10:00)
[2020-07-10 12:35] VITALS: BP 158/98; PULSE 82; TEMP 98.2
[2020-07-10] MEDS ORDERED: lisinopriL 5 MG TAB PO STA (13:53)
--- NOTE | 2020-07-10 13:55 | P.PN ---
Subjective Progress Note Date: 07/10/20 The patient is a 55-year-old male with past medical history of of atrial fibrillation, hypertension, and EtOH abuse, who was admitted to the hospital for chest discomfort. Upon arrival to the emergency room he was noted to be acutely intoxicated. He did have mild elevated troponin levels, however he was tachycardic at that time. No episodes of A. fib since his admission, however this was confirmed previously during his last admission to [facility]. The patient is resting comfortably in bed. He denies any more chest pain or chest pressure. No dyspnea, orthopnea, palpitations, dizziness, or lightheadedness. GENERAL: Well-appearing, well-nourished and in no acute distress. NECK: Supple without JVD or thyromegaly. LUNGS: Breath sounds clear to auscultation bilaterally. Respiration equal and unlabored. No wheezes, rales or rhonchi. HEART: Regular rate and rhythm without murmurs, rubs or gallops. S1 and S2 heard. EXTREMITIES: Normal range of motion, no edema. No clubbing or cyanosis. Peripheral pulses intact and strong. VITALS: Blood pressure 151/97, pulse 71, respiratory rate 16, temp 98.1F, SpO2 97% on room air TELEMETRY: Sinus mechanism. No atrial arrhythmias noted IMPRESSION: Acute alcohol intoxication, history of EtOH abuse Sinus tachycardia, resolved Chest discomfort, resolved Hypertension, uncontrolled Mildly elevated troponin, no rise and fall pattern consistent with coronary artery disease History of atrial fibrillation PLAN: Additional 5 mg tablet and lisinopril now Increase lisinopril to 10 mg daily Further recommendations based on clinical course The patient has been seen and evaluated. Plan of care has been reviewed and agreed upon by Dr Lee. Objective - Vital Signs Vital signs: Vital Signs Temp 98.2 F 07/10/20 12:00 Pulse 82 07/10/20 12:00 Resp 16 07/10/20 12:00 BP 158/98 07/10/20 12:00 Pulse Ox 100 07/10/20 12:00 Intake & Output 07/09/20 07/10/20 07/10/20 18:59 06:59 18:59 Intake Total 720 1800 1120 Output Total 400 Balance 720 1400 1120 Weight 94 kg Intake: Oral 720 1800 1120 Output: Urine 400 Other: Voiding Method Toilet Toilet # Voids 1 - Labs CBC & Chem 7: 07/07/20 00:56 07/07/20 00:56
[2020-07-11] MEDS ORDERED: lisinopriL 10 MG TAB PO SCH (09:00)
--- NOTE | 2020-07-30 08:38 | P.DS ---
Providers Date of admission: 07/09/20 08:15 Expected date of discharge: 07/10/20 Attending physician: Sana Wynn Consults: 07/07/20 02:22 Consult Physician Urgent Consulting Provider: [facility] Consult Reason/Comments: Chest Pain; Elevated trop Do you want consulting provider notified?: Yes Primary care physician: Maryan Gomez [facility] Course: 55-year-old male presented with the feelings of palpitations and heart racing and fluttering. Patient is found to have elevated alcohol level patient does have history of vocal abuse was recently admitted at [facility] where I took care of the patient patient left AGAINST MEDICAL ADVICE couple days ago. Patient started drinking again. At [facility] patient was treated for atrial fibrillation and was being treated for alcohol withdrawals. Patient had an echocardiogram there which showed normal ejection fraction without any significant valvular abnormalities were almost patient here is found to have mildly elevated troponins in the range of 0.039- 0.044. Patient was evaluated by cardiology. Patient was not started on anti-correlation because of his alcohol abuse history. Patient this time is found to have sinus tachycardia. Patient is bit agitated may have some withdrawals going on at this time. 07/09/2020 Patient is seen and evaluated in room at bedside; continues to require Ativan; requesting to be started on Medrol Dosepak claiming it was ordered by PCP but not sure why it was started; once vitamin B12 injection Vital signs are reviewed and reveal elevated blood pressure of 180/99, heart rate of 74 Cardiology on board and recommending to add lisinopril for blood pressure control; increase activity and monitor for exertional chest pain with plans to do outpatient stress test if remains stable We will continue with CIWA protocol; monitor closely and plan to discharge in next 24 hours Cardiology cleared patient for dc with following recs; Add lisinopril for blood pressure control. Increase activity and monitor for exertional chest pain. If stable he can be discharged home to follow up for outpatient stress test. Patient Condition at Discharge: Serious Plan - Discharge Summary Discharge Rx Participant: No New Discharge Prescriptions: New Aspirin 81 mg PO DAILY chew Metoprolol Succinate [Kapspargo Sprinkle] 50 mg PO AC-BRKFST #30 cap.spr.24 Pravastatin Sodium [Pravachol] 80 mg PO HS #30 tab Thiamine HCl [Vitamin B-1] 100 mg PO DAILY #30 tablet Continue oxyCODONE HCL/ACETAMINOPHEN [Percocet 10-325 mg] 1 tab PO Q6HR No Action Escitalopram [Lexapro] 10 mg PO DAILY #30 tab Mirtazapine [Remeron] 15 mg PO HS #30 tab Omeprazole [PriLOSEC] 40 mg PO AC-BRKFST #30 capsule. Naltrexone HCl [Revia] 50 mg PO DAILY #30 tab lisinopriL [Zestril] 10 mg PO DAILY #30 tab Discharge Medication List oxyCODONE HCL/ACETAMINOPHEN [Percocet 10-325 mg] 1 tab PO Q6HR 07/07/20 [History] Aspirin 81 mg PO DAILY chew 07/10/20 [Rx] Metoprolol Succinate [Kapspargo Sprinkle] 50 mg PO AC-BRKFST #30 cap.spr.24 07/10/20 [Rx] Pravastatin Sodium [Pravachol] 80 mg PO HS #30 tab 07/10/20 [Rx] Thiamine HCl [Vitamin B-1] 100 mg PO DAILY #30 tablet 07/10/20 [Rx] Escitalopram [Lexapro] 10 mg PO DAILY #30 tab 07/14/20 [Rx] Mirtazapine [Remeron] 15 mg PO HS #30 tab 07/14/20 [Rx] Naltrexone HCl [Revia] 50 mg PO DAILY #30 tab 07/14/20 [Rx] Omeprazole [PriLOSEC] 40 mg PO AC-BRKFST #30 capsule. 07/14/20 [Rx] lisinopriL [Zestril] 10 mg PO DAILY #30 tab 07/14/20 [Rx] Follow up Appointment(s)/Referral(s): Marybel Steinberg MD [Primary Care Provider] - 1-2 days Lc Branch MD [STAFF PHYSICIAN] - 2 Weeks Patient Instructions/Handouts: Chest Pain (DC), Generalized Anxiety Disorder (ED) Discharge Disposition: HOME SELF-CARE
== END 2020-07-10 15:00 | disposition home or self-care (01) | DRG 897 ==
LOC: EC 23:43 → 3SCARD 07-07 02:11 → OBSVTOIN 07-09 08:15
PROVIDERS: ADMIT Hospitalist; ATTEND Hospitalist
DX: F10.239 Alcohol dependence with withdrawal, unspecified (principal); I10 Essential (primary) hypertension; I48.0 Paroxysmal atrial fibrillation; F17.200 Nicotine dependence, unspecified, uncomplicated; F41.9 Anxiety disorder, unspecified; Z79.82 Long term (current) use of aspirin; Z79.899 Other long term (current) drug therapy; R00.0 Tachycardia, unspecified; K29.20 Alcoholic gastritis without bleeding; Y90.7 Blood alcohol level of 200-239 mg/100 ml; R74.8 Abnormal levels of other serum enzymes; R77.8 Other specified abnormalities of plasma proteins; Z20.822 Contact with and (suspected) exposure to COVID-19
CPT/HCPCS: 36415; 71045; 80053; 80061; 80320; 83690; 83721; 83735; 84484; 85025; 85610; 85730; 87635; 93005; 93306; 96374; 96375; 99285

== ENCOUNTER 2020-07-13 05:26 | Observation (INO) | payer OTHER ==
[2020-07-13] MEDS ORDERED: MORPHINE SULFATE 4 MG/ML SYRINGE IV STA (05:32)
[2020-07-13] MEDS ORDERED: SODIUM CHLORIDE 0.9% 1,000 ML IV STA (05:32)
--- NOTE | 2020-07-13 05:33 | ED ---
Chest Pain HPI - General Stated Complaint: Chest Pain Time Seen by Provider: 07/13/20 05:31 Source: RN notes reviewed, old records reviewed Mode of arrival: EMS Limitations: no limitations - History of Present Illness Initial Comments: This is a 35-year-old male who is intoxicated coming in for multiple complaints. Patient is recent hospital admission for alcohol combined with chest pain and elevated troponin. Patient is complaining of chest pain again today does admit to drinking today. Patient states he drinks sleep doesn't have chest pain. Otherwise no shortness of breath, mild nausea no vomiting no sweating. Patient is complaining of chest pain and severe anxiety MD Complaint: chest pain -: days(s) Onset: during rest, during exertion Pain Location: substernal Pain Radiation: none Severity: moderate Severity scale (1-10): 4 Quality: aching Consistency: constant Improves With: nothing Worsens With: nothing Context: recent illness, new medications Anginal Symptoms: diaphoresis, dyspnea, sense of impending doom Other Symptoms: palpitations Treatments Prior to Arrival: none - Related Data Home Medications Medication Instructions Recorded Confirmed oxyCODONE HCL/ACETAMINOPHEN 1 tab PO Q6HR 07/07/20 07/13/20 [Percocet 10-325 mg] Previous Rx's Medication Instructions Recorded Aspirin 81 mg PO DAILY chew 07/10/20 Metoprolol Succinate [Kapspargo 50 mg PO AC-BRKFST #30 cap.spr.24 07/10/20 Sprinkle] Pravastatin Sodium [Pravachol] 80 mg PO HS #30 tab 07/10/20 Thiamine HCl [Vitamin B-1] 100 mg PO DAILY #30 tablet 07/10/20 lisinopriL [Zestril] 5 mg PO DAILY #30 tab 07/10/20 Allergies Allergy/AdvReac Type Severity Reaction Status Date / Time No Known Allergies Allergy Verified 07/13/20 07:11 Review of Systems ROS Statement: Those systems with pertinent positive or pertinent negative responses have been documented in the HPI. ROS Other: All systems not noted in ROS Statement are negative. EKG Findings - EKG Comments: EKG Findings:: EKG shows sinus tachycardia 105 MT 144 QRS 78 QTc 459 Past Medical History Past Medical History: Hypertension Additional Past Medical History / Comment(s): Pt recently hospitalized on 07/04/[address] [facility] for afib and elevated troponins/pt left AMA. Other hx: Chronic cervical and back pain, L knee pain/meniscus tear. History of Any Multi-Drug Resistant Organisms: None Reported Past Surgical History: No Surgical Hx Reported Past Anesthesia/Blood Transfusion Reactions: Unable to Obtain Additional Past Anesthesia/Blood Transfusion Reaction / Comment(s): Pt states he has never had surgery. Smoking Status: Current every day smoker - Past Family History Father Family Medical History: Coronary Artery Disease (CAD) Additional Family Medical History / Comment(s): Father is 82 yrs old. He had CABG Mother Family Medical History: Cancer Additional Family Medical History / Comment(s): Mother of ovarian cancer at the age of 63 yrs. General Exam General appearance: alert, in no apparent distress, anxious, in distress Head exam: Present: atraumatic, normocephalic, normal inspection Eye exam: Present: normal appearance, PERRL, EOMI. Absent: scleral icterus, conjunctival injection, periorbital swelling ENT exam: Present: normal exam, mucous membranes moist Neck exam: Present: normal inspection. Absent: tenderness, meningismus, lymphadenopathy Respiratory exam: Present: normal lung sounds bilaterally. Absent: respiratory distress, wheezes, rales, rhonchi, stridor Cardiovascular Exam: Present: regular rate, normal rhythm, normal heart sounds. Absent: systolic murmur, diastolic murmur, rubs, gallop, clicks GI/Abdominal exam: Present: soft, normal bowel sounds. Absent: distended, tenderness, guarding, rebound, rigid Extremities exam: Present: normal inspection, full ROM, normal capillary refill. Absent: tenderness, pedal edema, joint swelling, calf tenderness Back exam: Present: normal inspection Neurological exam: Present: alert, oriented X3, CN II-XII intact Psychiatric exam: Present: normal affect, normal mood Skin exam: Present: warm, dry, intact, normal color. Absent: rash Course Vital Signs 07/13/20 07/13/20 07/13/20 05:28 06:29 07:30 Temperature 97.9 F Pulse Rate 117 H 101 H 105 H Respiratory 20 18 18 Rate Blood Pressure 137/107 127/78 162/93 O2 Sat by Pulse 96 95 Oximetry 07/13/20 07/13/20 07/13/20 11:08 11:20 12:00 Temperature Pulse Rate 101 H 92 80 Respiratory 18 18 18 Rate Blood Pressure 129/94 137/106 O2 Sat by Pulse 98 98 Oximetry 07/13/20 07/13/20 07/13/20 13:00 14:00 15:00 Temperature Pulse Rate 74 76 78 Respiratory 18 18 18 Rate Blood Pressure 130/83 127/82 130/83 O2 Sat by Pulse 99 98 98 Oximetry 07/13/20 07/13/20 07/13/20 16:00 17:00 21:32 Temperature Pulse Rate 77 78 72 Respiratory 18 18 18 Rate Blood Pressure 128/82 114/80 116/63 O2 Sat by Pulse 97 98 95 Oximetry - Reevaluation(s) Reevaluation #1: Medical record is reviewed Patient is feeling improved here in the emergency room Spoke with patient regarding findings questions are answered Patient's concerned about his alcoholism as well. Would like help with alcoholism when he gets his chest pain throughout Chest Pain MDM - MDM 55 male to the ER for evaluation of chest pain confounded by alcoholism. Patient will be admitted for cardiology to evaluate and treatment of alcoholism Disposition Clinical Impression: Chest pain, Elevated troponin, Alcohol intoxication Disposition: ADMITTED IP TO THIS HOSP Condition: Fair Is patient prescribed a controlled substance at d/c from ED?: No
[2020-07-13 05:54] LABS: Basophils # (A) 0.1 k/uL (0-0.2); Basophils % (A) 1 %; Eosinophils # (A) 0.1 k/uL (0-0.7); Eosinophils % (A) 1 %; HCT 43.7 % (39.0-53.0); HGB 15.4 gm/dL (13.0-17.5); Lymphocytes # (A) 2.1 k/uL (1.0-4.8); Lymphocytes % (A) 25 %; MCH 34.2 pg (25.0-35.0); MCHC 35.2 g/dL (31.0-37.0); MCV 97.3 fL (80.0-100.0); Mean Platelet Volume 7.3; Monocytes # (A) 0.6 k/uL (0-1.0); Monocytes % (A) 8 %; Neutrophils # (A) 5.3 k/uL (1.3-7.7); Neutrophils % (A) 64 %; Platelet Count 274 k/uL (150-450); RDW 12.4 % (11.5-15.5); WBC 8.4 k/uL (3.8-10.6)
[2020-07-13 06:05] LABS: Albumin 4.8 g/dL (3.5-5.0); Calcium 9.9 mg/dL (8.4-10.2); Magnesium 1.7 mg/dL (1.6-2.3); Phosphorus 4.9 mg/dL (2.5-4.5); Potassium 3.9 mmol/L (3.5-5.1); Total Bilirubin 0.4 mg/dL (0.2-1.3); Total Protein 7.3 g/dL (6.3-8.2)
[2020-07-13 06:13] LABS: Prothrombin Time 10.4 sec (9.0-12.0)
[2020-07-13 06:30] LABS: Partial Thromboplastin Time 21.4 sec (22.0-30.0)
[2020-07-13] MEDS ORDERED: MORPHINE SULFATE 4 MG/ML SYRINGE IV PRN (06:36)
[2020-07-13] MEDS ORDERED: ASPIRIN 81 MG PO STA (06:36)
[2020-07-13] MEDS ORDERED: NITROGLYCERIN SL TABS 0.4 MG TAB SUBLINGUAL PRN (06:36)
[2020-07-13] MEDS ORDERED: LORazepam 2 MG/ML INJ IV PRN ×3 (06:37)
[2020-07-13] MEDS ORDERED: THIAMINE 100 MG/ML 2 ML VIAL IM STA ×2 (06:37→07:32)
--- NOTE | 2020-07-13 06:37 | XR ---
EXAM: XR Chest, 2 Views CLINICAL HISTORY: Weakness TECHNIQUE: Frontal and lateral views of the chest. COMPARISON: 07/07/2020 FINDINGS: Lungs: Unremarkable. No consolidation. Pleural space: Unremarkable. No pneumothorax. Heart: Unremarkable. No cardiomegaly. Mediastinum: Unremarkable. Bones/joints: Unremarkable. IMPRESSION: No radiographic evidence of acute cardiopulmonary process
[2020-07-13] MEDS: SODIUM CHLORIDE 0.9% 1,000 ML IV SCH ×2 (07:36→21:03)
[2020-07-13] MEDS ORDERED: lisinopriL 5 MG TAB PO STA (07:41)
[2020-07-13] MEDS ORDERED: METOPROLOL SUCCINATE (ER) 50 MG TAB.ER.24H PO STA (07:41)
[2020-07-13] MEDS: METOPROLOL SUCCINATE (ER) 50 MG TAB.ER.24H PO SCH (10:43)
[2020-07-13] MEDS: lisinopriL 10 MG TAB PO SCH (10:43)
--- NOTE | 2020-07-13 11:40 | P.CRDCN ---
History of Present Illness Consult date: 07/13/20 History of present illness: HISTORY OF PRESENT ILLNESS: This is a 55-year-old male with a past medical history significant for paroxysmal atrial fibrillation (diagnosed at recent hospitalization at [facility]), alcohol abuse, anxiety, and nicotine dependence. Patient does not follow with a experimental worker, but was seen by Dr. Savage last week in the hospital. Patient was admitted to the hospital at that time for alcohol intoxication, sinus tachycardia, and mildly abnormal troponins. Patient was discharged home in stable condition. Patient presented back to the hospital with chest pain. We have been asked to see the patient in consultation for chest pain. Patient examined at the bedside in the emergency room. Patient states he was unable to get any of his prescriptions filled because he did not have a ride to the pharmacy after he was discharged. He said he had difficulty sleeping at home so he started drinking "to take the edge off". He reports chest discomfort this morning that is worse with deep inspiration. He denies shortness of breath, cough, or congestion. He denies any radiation of the pain. He denies nausea or vomiting. EKG reveals sinus tachycardia with heart rate of 105 Chest xray negative for acute process Laboratory data: WBC 8.4. Hemoglobin 15.4. Platelet count 274. Sodium 145. Potassium 3.9. BUN 9. Creatinine 1.13. AST 128. ALT 139. Troponin 0.048. 0.049. Lipase 310. Serum alcohol 260. Current home cardiac medications include lisinopril 5 mg daily, aspirin 81 mg daily, pravastatin 80 mg daily, and metoprolol succinate 50 mg daily Most recent echocardiogram obtained on 07/08/2020 revealed ejection fraction 65- 70%, LVH, Moderate ERNIE, mild mitral regurgitation, mild tricuspid regurgitation, mild to moderate pulmonary hypertension, and small pericardial effusion. REVIEW OF SYSTEMS: At the time of my exam: CONSTITUTIONAL: Denies fever or chills. HEENT: Denies blurred vision, vision changes, or eye pain. Denies hemoptysis CARDIOVASCULAR: Reports chest pain with deep inspiration. Denies orthopnea. Denies PND. Denies palpitations RESPIRATORY: Denies shortness of breath. GASTROINTESTINAL: Denies abdominal pain. Denies nausea or vomiting. HEMATOLOGIC: Denies bleeding disorders. GENITOURINARY: Denies any blood in urine. SKIN: Denies pruitis. Denies rash. PHYSICAL EXAM: VITAL SIGNS: Reviewed. GENERAL: Well-developed in no acute distress. HEENT: Head is normocephalic. Pupils are equal, round. Sclerae anicteric. Mucous membranes of the mouth are moist. Neck supple. No JVD or thyromegaly LUNGS: Respirations even and unlabored. Lungs with diminished air exchange. HEART: Regular rate and rhythm. S1 and S2 heard. ABDOMEN: Soft. Nondistended. Nontender. EXTREMITIES: Normal range of motion. No clubbing or cyanosis. Peripheral pulses intact. No lower extremity edema. Patient with abrasion to left arm. NEUROLOGIC: Awake and alert. Oriented x 3. ASSESSMENT: Chest pain, atypical, troponins flat and not suggestive of ACS Hypertension Acute alcohol intoxication Alcohol abuse Elevated LFTs Nicotine dependence History of paroxysmal atrial fibrillation PLAN: An acute coronary event has been ruled out No need to repeat echo as this was performed on recent admission Resume home cardiac medications Recommend abstinence from alcohol Smoking cessation recommended Consult social work and psychiatry per Dr. Mckoy Further recommendations pending patient's course Nurse practitioner note has been reviewed by physician. Signing provider agrees with the documented findings, assessment, and plan of care. Past Medical History Past Medical History: Hypertension Additional Past Medical History / Comment(s): Pt recently hospitalized on 07/04/20 at [facility] for afib and elevated troponins/pt left AMA. Other hx: Chronic cervical and back pain, L knee pain/meniscus tear. History of Any Multi-Drug Resistant Organisms: None Reported Past Surgical History: No Surgical Hx Reported Past Anesthesia/Blood Transfusion Reactions: Unable to Obtain Additional Past Anesthesia/Blood Transfusion Reaction / Comment(s): Pt states he has never had surgery. Smoking Status: Current every day smoker - Past Family History Father Family Medical History: Coronary Artery Disease (CAD) Additional Family Medical History / Comment(s): Father is 82 yrs old. He had CABG Mother Family Medical History: Cancer Additional Family Medical History / Comment(s): Mother of ovarian cancer at the age of 63 yrs. Medications and Allergies Home Medications Medication Instructions Recorded Confirmed Type oxyCODONE HCL/ACETAMINOPHEN 1 tab PO Q6HR 07/07/20 07/13/20 History [Percocet 10-325 mg] Aspirin 81 mg PO DAILY chew 07/10/20 07/13/20 Rx Metoprolol Succinate [Kapspargo 50 mg PO AC-BRKFST #30 cap.spr.24 07/10/20 07/13/20 Rx Sprinkle] Pravastatin Sodium [Pravachol] 80 mg PO HS #30 tab 07/10/20 07/13/20 Rx Thiamine HCl [Vitamin B-1] 100 mg PO DAILY #30 tablet 07/10/20 07/13/20 Rx lisinopriL [Zestril] 5 mg PO DAILY #30 tab 07/10/20 07/13/20 Rx Allergies Allergy/AdvReac Type Severity Reaction Status Date / Time No Known Allergies Allergy Verified 07/13/20 07:11 Physical Exam Vitals: Vital Signs Temp Pulse Resp BP Pulse Ox 07/13/20 11:08 101 H 18 129/94 07/13/20 07:30 105 H 18 162/93 07/13/20 06:29 101 H 18 127/78 95 07/13/20 05:28 97.9 F 117 H 20 137/107 96 Intake and Output 07/12/20 07/13/20 07/13/20 22:59 06:59 14:59 Other: Weight 96.162 kg Results 07/13/20 05:40 07/13/20 05:40 Cardiac Enzymes 07/13/20 07/13/20 07/13/20 Range/Units 05:40 05:40 08:21 AST 128 H (17-59) U/L Troponin I 0.048 H* 0.049 H* (0.000-0.034) ng/mL Coagulation 07/13/20 Range/Units 05:40 PT 10.4 (9.0-12.0) sec APTT 21.4 L (22.0-30.0) sec CBC 07/13/20 Range/Units 05:40 WBC 8.4 (3.8-10.6) k/uL RBC 4.50 (4.30-5.90) m/uL Hgb 15.4 (13.0-17.5) gm/dL Hct 43.7 (39.0-53.0) % Plt Count 274 (150-450) k/uL Comprehensive Metabolic Panel 07/13/20 Range/Units 05:40 Sodium 145 (137-145) mmol/L Potassium 3.9 (3.5-5.1) mmol/L Chloride 111 H (98-107) mmol/L Carbon Dioxide 20 L (22-30) mmol/L BUN 9 (9-20) mg/dL Creatinine 1.13 (0.66-1.25) mg/dL Glucose 128 H (74-99) mg/dL Calcium 9.9 (8.4-10.2) mg/dL AST 128 H (17-59) U/L ALT 139 H (4-49) U/L Alkaline Phosphatase 61 (38-126) U/L Total Protein 7.3 (6.3-8.2) g/dL Albumin 4.8 (3.5-5.0) g/dL Current Medications Generic Name Dose Route Start Last Admin Trade Name Freq PRN Reason Stop Dose Admin Aspirin 81 mg 07/14/20 09:00 Aspirin 81 Mg PO DAILY [facility] Sodium Chloride 1,000 mls @ 100 mls/hr 07/13/20 06:45 07/13/20 07:36 Saline 0.9% IV 100 mls/hr .Q10H [facility] Administration Lisinopril 10 mg 07/13/20 10:00 07/13/20 10:43 Lisinopril 10 Mg Tab PO Not Given DAILY [facility] Lorazepam 1 mg 07/13/20 06:37 07/13/20 10:43 Lorazepam 2 Mg/Ml Inj IV 1 mg Q2HR PRN Administration CIWA 8 or 9 Lorazepam 1 mg 07/13/20 06:37 Lorazepam 2 Mg/Ml Inj IV Q1HR PRN CIWA 10 to 15 Lorazepam 2 mg 07/13/20 06:37 Lorazepam 2 Mg/Ml Inj IV 07/15/20 06:38 Q10M PRN CIWA 16 or higher Metoprolol Succinate 50 mg 07/13/20 10:00 07/13/20 10:43 Metoprolol Succinate (Er) 50 Mg Tab.Er.24h PO Not Given DAILY [facility] Morphine Sulfate 4 mg 07/13/20 06:36 07/13/20 10:37 Morphine Sulfate 4 Mg/Ml Syringe IV 4 mg Q4HR PRN Administration Chest Pain Nitroglycerin 0.4 mg 07/13/20 06:36 Nitroglycerin Sl Tabs 0.4 Mg Tab SUBLINGUAL Q5M PRN Chest Pain Pravastatin Sodium 80 mg 07/13/20 21:00 Pravastatin Sodium 80 Mg Tab PO HS [facility] Thiamine HCl 100 mg 07/13/20 17:30 Thiamine 100 Mg Tab PO BID-W/MEALS T[facility] Intake and Output 07/12/20 07/13/20 07/13/20 22:59 06:59 14:59 Other: Weight 96.162 kg 07/13/20 05:40 07/13/20 05:40
[2020-07-13] MEDS: oxyCODONE-APAP 10-325MG 1 EACH TAB PO SCH ×2 (12:26→18:28)
[2020-07-13] MEDS: PANTOPRAZOLE 40 MG/10 ML VIAL IVP SCH ×2 (12:31→21:23)
--- NOTE | 2020-07-13 13:25 | P.HPIM ---
History of Present Illness 55-year-old male came in with the complaints of chest pain which started yesterday. Patient hasn't no symptoms a few days ago was admitted and subsequently discharged about 3-4 days ago. Patient was evaluated at [facility] as well at the time patient was found to be in atrial fibrillation. Anti- correlation was not recommended because of his alcohol abuse history. Patient was intoxicated when he came in yesterday and patient continued to drink in ER as well and patient was intoxicated when I evaluated the patient. Patient is willing to quit alcohol and requesting for help, patient is willing to go to alcohol rehabilitation program. EKG shows sinus tachycardia now it started about 5 chest x-ray did not show any significant abnormality troponins are minimally elevated and these were elevation was present during his previous hospitalization as well and patient had an echocardiogram at that time which did not show any wall motion abnormalities. Review of Systems REVIEW OF SYSTEMS: CONSTITUTIONAL: No fever, no malaise, no fatigue. HEENT: No recent visual problems or hearing problems. Denied any sore throat. CARDIOVASCULAR: No orthopnea, PND, no palpitations, no syncope. PULMONARY: No shortness of breath, no cough, no hemoptysis. GASTROINTESTINAL: No diarrhea, no nausea, no vomiting, no abdominal pain. NEUROLOGICAL: No headaches, no weakness, no numbness. HEMATOLOGICAL: Denies any bleeding or petechiae. GENITOURINARY: Denies any burning micturition, frequency, or urgency. MUSCULOSKELETAL/RHEUMATOLOGICAL: Denies any joint pain, swelling, or any muscle pain. ENDOCRINE: Denies any polyuria or polydipsia. The rest of the 14-point review of systems is negative. Past Medical History Past Medical History: Hypertension Additional Past Medical History / Comment(s): Pt recently hospitalized on 07/04/20 at [facility] for afib and elevated troponins/pt left AMA. Other hx: Chronic cervical and back pain, L knee pain/meniscus tear. History of Any Multi-Drug Resistant Organisms: None Reported Past Surgical History: No Surgical Hx Reported Past Anesthesia/Blood Transfusion Reactions: Unable to Obtain Additional Past Anesthesia/Blood Transfusion Reaction / Comment(s): Pt states he has never had surgery. Smoking Status: Current every day smoker - Past Family History Father Family Medical History: Coronary Artery Disease (CAD) Additional Family Medical History / Comment(s): Father is 82 yrs old. He had CABG Mother Family Medical History: Cancer Additional Family Medical History / Comment(s): Mother of ovarian cancer at the age of 63 yrs. Medications and Allergies Home Medications Medication Instructions Recorded Confirmed Type oxyCODONE HCL/ACETAMINOPHEN 1 tab PO Q6HR 07/07/20 07/13/20 History [Percocet 10-325 mg] Aspirin 81 mg PO DAILY chew 07/10/20 07/13/20 Rx Metoprolol Succinate [Kapspargo 50 mg PO AC-BRKFST #30 cap.spr.24 07/10/20 07/13/20 Rx Sprinkle] Pravastatin Sodium [Pravachol] 80 mg PO HS #30 tab 07/10/20 07/13/20 Rx Thiamine HCl [Vitamin B-1] 100 mg PO DAILY #30 tablet 07/10/20 07/13/20 Rx lisinopriL [Zestril] 5 mg PO DAILY #30 tab 07/10/20 07/13/20 Rx Allergies Allergy/AdvReac Type Severity Reaction Status Date / Time No Known Allergies Allergy Verified 07/13/20 07:11 Physical Exam Vitals: Vital Signs Temp Pulse Resp BP Pulse Ox 07/13/20 12:00 80 18 137/106 98 07/13/20 11:20 92 18 98 07/13/20 11:08 101 H 18 129/94 07/13/20 07:30 105 H 18 162/93 07/13/20 06:29 101 H 18 127/78 95 07/13/20 05:28 97.9 F 117 H 20 137/107 96 Intake and Output 07/12/20 07/13/20 07/13/20 22:59 06:59 14:59 Other: Weight 96.162 kg PHYSICAL EXAMINATION: GENERAL: The patient is alert and oriented x3, not in any acute distress. Well developed, well nourished. Patient was bit intoxicated when I evaluated the patient HEENT: Pupils are round and equally reacting to light. EOMI. No scleral icterus. No conjunctival pallor. Normocephalic, atraumatic. No pharyngeal erythema. No thyromegaly. CARDIOVASCULAR: S1 and S2 present. No murmurs, rubs, or gallops. PULMONARY: Chest is clear to auscultation, no wheezing or crackles. ABDOMEN: Soft, nontender, nondistended, normoactive bowel sounds. No palpable organomegaly. MUSCULOSKELETAL: No joint swelling or deformity. EXTREMITIES: No cyanosis, clubbing, or pedal edema. NEUROLOGICAL: Gross neurological examination did not reveal any focal deficits. SKIN: No rashes. Results CBC & Chem 7: 07/13/20 05:40 07/13/20 05:40 Labs: Abnormal Lab Results - Last 24 Hours (Table) 07/13/20 07/13/20 07/13/20 Range/Units 05:40 05:40 05:40 APTT 21.4 L (22.0-30.0) sec Chloride 111 H (98-107) mmol/L Carbon Dioxide 20 L (22-30) mmol/L Glucose 128 H (74-99) mg/dL Phosphorus 4.9 H (2.5-4.5) mg/dL AST 128 H (17-59) U/L ALT 139 H (4-49) U/L Creatine Kinase 195 H (55-170) U/L Troponin I 0.048 H* (0.000-0.034) ng/mL Lipase 310 H (23-300) U/L Serum Alcohol 260 H* mg/dL 07/13/20 07/13/20 Range/Units 08:21 10:50 APTT (22.0-30.0) sec Chloride (98-107) mmol/L Carbon Dioxide (22-30) mmol/L Glucose (74-99) mg/dL Phosphorus (2.5-4.5) mg/dL AST (17-59) U/L ALT (4-49) U/L Creatine Kinase (55-170) U/L Troponin I 0.049 H* 0.052 H* (0.000-0.034) ng/mL Lipase (23-300) U/L Serum Alcohol mg/dL Assessment and Plan Plan: -Chest pain most probably seconded alcoholic gastritis. Cardiology evaluated the patient symptoms are consistent with acute coronary syndrome -Hypertension -Alcohol abuse, patient will be monitored for withdrawals. Will be started on CIWA protocol -Alcoholic hepatitis acute -Proximal atrial fibrillation patient is presently sinus rhythm continue with metoprolol and - nicotine dependence: Counseling was provided. DVT prophylaxis Lovenox
--- NOTE | 2020-07-13 13:57 | P.CN ---
Psychiatric Consult - . 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 HISTORY OF PRESENT ILLNESS: The patient presented to the hospital yesterday with complaints of chest pain and alcohol intoxication. Patient was seen by cardiology and cleared. Patient had a x-ray which was negative. He had elevated AST and ALT. Patient had a blood alcohol level of 260 on admission. Patients nurse claims that patient has been fairly cooperative however was spotted trying to drink alcohol from his bag as he had some bottles in there and was on a one-to-one sitter. Patient was able to speak to investigative writer today and was attempting to be calm and appropriate. He spoke about not feeling comfortable in his own skin and needing alcohol to help him with his work and function in his daily life. He describes the negative effects of alcohol including legal trouble and also trouble with friends and family. He states that he is fairly ambivalent about quitting and spoke about feeling depressed and anxious. He spoke about his financial stressors and also with housing. He claims that his chest pain has gotten better. He states that he drinks approximately 2-4 beers a day and has been doing this since April of this year. He claims that he has drinking alcohol since the age of 15 he claims that he does have cravings towards her. He states that he has had several DUIs in the past. Currently he is stating that he is having suicidal thoughts however no intent or plan . At this time patient denies any homical ideations, intent or plan. Patient denies any auditory, visual hallucinations and denies any paranoia or delusions. Patients admits to using alcohol as described above. He claims that he also smokes cigarettes. PAST PSYCHIATRIC HISTORY: Patient has a a history of alcohol use and anxiety along with depression. Patient claims that he has been on several psychiatric medications however does not remember the names of them. Patient denies any previous psychiatric hospitalizations. He states that he has been to [facility] in the past. Patient denies any history of suicide attempts in the past. PAST MEDICAL HISTORY: Hypertension, hyperlipidemia, A. fib. ALLERGIES: as per EMR. CHEMICAL DEPENDENCY HISTORY: as per HPI. FAMILY PSYCHIATRIC/SUBSTANCE USE HISTORY: He states that his grandmother had some form of mental illness. He also claims that his sister as schizophrenia SOCIAL HISTORY: Patient was born and raised in [facility]. 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 He claims that he has been to jail for 3.5 years in the past for "property crime". He admits to several DUIs in the past. MENTAL STATUS EXAM: General Appearance: Patient appears to be stated age is well built, alert, attempts to cooperate difficult to redirect at times. Patient appears to have poor hygiene and grooming wearing hospital gown with fair eye contact. Behavior: Patient is calmly sitting on the chair without any agitated behavior. Speech: Patient's speech is fluent and nonpressured. Mood/Affect: Patient reports their mood is "depressed and anxious", affect is congruent Suicidality/Homicidality: Patient admits to having suicidal thoughts however no intent or plan. Perceptions: Patient denies any visual hallucinations and denies any auditory hallucinations Though content/process: Generally rambles at times, tangential. Logical. Memory and concentration: AOX3, grossly intact for the purposes of this session. Can spell "WORLD" backwards Judgment and insight: poor IMPRESSIONS: Depressive disorder, rule out substance-induced depressive disorder Alcohol abuse Nicotine dependence PLAN: -At this time will continue following patient to see if patient will meet criteria for psychiatric admission. -Would recommend the following medication changes/additions: Start Lexapro 10 mg daily for mood/anxiety. Start Remeron 15 mg daily at bedtime for insomnia/appetite. Start naltrexone 50 mg daily for alcohol cravings. -CIWA protocol with PRN Ativan for alcohol withdrawal. Continue to monitor vital signs. -Continue 1:1 sitter for safety -Enterprise Security Architect spoke with patient about substance abuse and the harmful effects on medical and mental health, patient verbally understood and agreed. -forestry conservation worker to provide patient substance use treatment resources including AA/NA meetings in the community. -forestry conservation worker to provide patient with access line number to call for inpatient substance rehab -Communicated plan to patient's nurse -Will continue to follow along -Please contact with any questions. 07/13/20 13:49
[2020-07-13] MEDS ORDERED: NALTREXONE HCL 50 MG TAB PO SCH (14:00)
[2020-07-13] MEDS ORDERED: ESCITALOPRAM 10 MG TAB PO SCH (14:00)
[2020-07-13 17:15] LABS: Appearance,Urine Clear (Clear); Bilirubin,Urine Negative (Negative); Blood,Urine Negative (Negative); Color,Urine Yellow; Glucose,Urine (UA) Negative (Negative); Ketones,Urine Negative (Negative); Leukocyte Esterase,Urine Negative (Negative); Nitrite,Urine Negative (Negative); PH, Urine 5.5 (5.0-8.0); Protein,Urine Trace (Negative); Specific Gravity,Urine 1.014 (1.001-1.035); Urobilinogen,Urine <2.0 mg/dL (<2.0)
[2020-07-13] MEDS ORDERED: PRAVASTATIN SODIUM 80 MG TAB PO SCH (21:00)
[2020-07-13] MEDS ORDERED: MIRTAZAPINE 15 MG TAB PO SCH (21:00)
[2020-07-13] MEDS: THIAMINE 100 MG TAB PO SCH (21:04)
[2020-07-14] MEDS: oxyCODONE-APAP 10-325MG 1 EACH TAB PO SCH ×3 (00:24→12:37)
[2020-07-14 05:32] LABS: ALT 116 U/L (4-49); AST 122 U/L (17-59); African American GFR (CKD) >90 (>60 ml/min/1.73 sqM); Albumin 3.9 g/dL (3.5-5.0); Alkaline Phosphatase 43 U/L (38-126); Anion Gap 4 mmol/L; Blood Urea Nitrogen 14 mg/dL (9-20); Calcium 9.3 mg/dL (8.4-10.2); Carbon Dioxide 27 mmol/L (22-30); Chloride 113 mmol/L (98-107); Glucose 94 mg/dL (74-99); Magnesium 1.7 mg/dL (1.6-2.3); Non-African American GFR(CKD) >90 (>60 ml/min/1.73 sqM); Potassium 4.6 mmol/L (3.5-5.1); Sodium 144 mmol/L (137-145); Total Bilirubin 0.7 mg/dL (0.2-1.3); Total Protein 6.3 g/dL (6.3-8.2)
[2020-07-14 06:17] VITALS: TEMP 98
[2020-07-14] MEDS: SODIUM CHLORIDE 0.9% 1,000 ML IV SCH (08:16)
[2020-07-14] MEDS ORDERED: ASPIRIN 81 MG PO SCH (09:00)
[2020-07-14] MEDS ORDERED: ENOXAPARIN 40 MG/0.4 ML SYRINGE SQ SCH (09:00)
[2020-07-14] MEDS ORDERED: ASPIRIN 325 MG TAB PO SCH (09:00)
[2020-07-14] MEDS ORDERED: THIAMINE 100 MG TAB PO SCH (09:00)
[2020-07-14 09:28] VITALS: BP 149/83; PULSE 68; RESP 16
[2020-07-14] MEDS ORDERED: MAGNESIUM SULFATE-D5W PMX 1 GM in DEXTROSE/WATER 1 100ML.BAG IVPB ONE (10:16)
--- NOTE | 2020-07-14 10:48 | PN ---
PROGRESS NOTE Mr. Flowers is a 55-year-old male who presented with symptoms of inability to sleep, symptoms of dyspnea. He has history of alcohol abuse. He is feeling better. He still has some dyspnea. He was able to sleep. He denies any dizziness or palpitation. He still has some chest burning when he takes a deep breaths. He denies any nausea or vomiting. He continued to be in sinus mechanism. He continues to be on aspirin 81 mg daily, lisinopril 10 mg daily, metoprolol succinate 50 mg daily, pravastatin 80 mg daily in addition to thiamine. PHYSICAL EXAMINATION: Blood pressure down to 149/80, it was in the 110s earlier. LUNGS: Clear. HEART: Regular rate and rhythm, S1, S2. No S3. No rub. ABDOMEN: Soft and nontender. EXTREMITIES: No edema. LAB DATA: Lab data revealed BUN and creatinine 14 and 0.95, potassium 4.6. IMPRESSION: 1. Acute alcoholism in a patient with history of chronic alcohol intake. 2. Mild troponin elevation, unchanged since his last admission, stable. 3. Hypertension. 4. Paroxysmal atrial fibrillation continues in sinus mechanism. RECOMMENDATION: We will continue present therapy. The patient has been seen by the Psych service to help with his addiction. From the cardiac standpoint, will follow his blood pressure. Once stable, he should be able to be discharged home. Follow as an outpatient with Dr. Savage. GLORIA / MAYURI: [id number] /
[2020-07-14] MEDS: THIAMINE 100 MG TAB PO SCH (12:36)
[2020-07-14] MEDS: lisinopriL 10 MG TAB PO SCH (12:36)
[2020-07-14] MEDS: METOPROLOL SUCCINATE (ER) 50 MG TAB.ER.24H PO SCH (12:37)
--- NOTE | 2020-07-14 12:54 | P.PN ---
Progress Note - Text Progress Note Date: 07/14/20 Interval History: Patient was seen today for psychiatric follow-up regarding patient's depression and alcohol abuse/withdrawal. Today patient claims that she is doing better in terms of his mood and is denying any anxiety today. He states that he cannot remember which medication he took but claims that he will be taking his medications when he leaves the hospital. He asked about being discharged today to go back home because he has to go back to work. He showed superficial insight into his drinking and claims that he wants to cut back and go into rehab as well. Patient was agreeable to take the resources from the psychiatric social worker today before discharge to call the access line. He states that he was able to sleep fairly throughout the night however did state that he had some awakenings due to the noise in the ER. At this time patient denies any suicidal or homical ideations, intent or plan. Patient denies any auditory, visual hallucinations and denies any paranoia or delusions. Patient denies any side effects from the medications and has been compliant with meds. Mental Status Exam: General Appearance: Patient appears to be stated age is well built, alert, attempts to cooperate. Patient appears to have improving hygiene and grooming wearing hospital gown with fair eye contact. Behavior: Patient is calmly sitting on the chair without any agitated behavior. Speech: Patient's speech is fluent and nonpressured. Mood/Affect: Patient reports their mood is "good", affect is congruent Suicidality/Homicidality: Patient admits to having suicidal thoughts however no intent or plan. Perceptions: Patient denies any visual hallucinations and denies any auditory hallucinations Though content/process: Logical today are more goal oriented. Memory and concentration: AOX3, grossly intact for the purposes of this session. Can spell "WORLD" backwards Judgment and insight: Improving mildly Assessment Depressive disorder, rule out substance-induced depressive disorder Alcohol abuse Nicotine dependence Plan: -At this time will continue following patient to see if patient will meet criteria for psychiatric admission. -Would recommend the following medication changes/additions: Lexapro 10 mg daily for mood/anxiety. Continue with Remeron 15 mg daily at bedtime for insomni a/appetite. naltrexone 50 mg daily for alcohol cravings. -CIWA protocol with PRN Ativan for alcohol withdrawal. Continue to monitor vital signs. -Spray Machine Loader spoke with patient about substance abuse and the harmful effects on medical and mental health, patient verbally understood and agreed. -new car make ready worker to provide patient substance use treatment resources including AA/NA meetings in the community. -new car make ready worker to provide patient with access line number to call for inpatient substance rehab -Communicated plan to with nurse and hospitalist. -At this time will sign off. -Please contact with any questions.
--- NOTE | 2020-07-14 12:59 | P.DS ---
Providers Date of admission: 07/13/20 06:37 Attending physician: Sana Wynn Consults: 07/13/20 06:36 Consult Physician Urgent Consulting Provider: Jordin Mckoy Consult Reason/Comments: cp Do you want consulting provider notified?: Yes 07/13/20 11:39 Consult Physician Routine Consulting Provider: Reji Edmonds Consult Reason/Comments: ETOH, patient making remarks of wanting to during exam Do you want consulting provider notified?: Yes Primary care physician: Maryan Gomez [facility] Course: 55-year-old male came in with the complaints of chest pain which started yesterday. Patient hasn't no symptoms a few days ago was admitted and subsequently discharged about 3-4 days ago. Patient was evaluated at [facility] as well at the time patient was found to be in atrial fibrillation. Anti- correlation was not recommended because of his alcohol abuse history. Patient was intoxicated when he came in yesterday and patient continued to drink in ER as well and patient was intoxicated when I evaluated the patient. Patient is willing to quit alcohol and requesting for help, patient is willing to go to alcohol rehabilitation program. EKG shows sinus tachycardia now it started about 5 chest x-ray did not show any significant abnormality troponins are minimally elevated and these were elevation was present during his previous hospitalization as well and patient had an echocardiogram at that time which did not show any wall motion abnormalities. 07/14/2020 Patient will be evaluated by social work and patient was provided with resources for alcohol abuse. I do not expect any withdrawals as patient was recently hospitalized and monitored for withdrawals. Patient is still having some abdominal discomfort because of alcoholic gastritis. Patient was evaluated by psychiatry as well and patient was started on naltrexone and antidepressants which will be continued PHYSICAL EXAMINATION: GENERAL: The patient is alert and oriented x3, not in any acute distress. Well developed, well nourished. Patient was bit intoxicated when I evaluated the patient HEENT: Pupils are round and equally reacting to light. EOMI. No scleral icterus. No conjunctival pallor. Normocephalic, atraumatic. No pharyngeal erythema. No thyromegaly. CARDIOVASCULAR: S1 and S2 present. No murmurs, rubs, or gallops. PULMONARY: Chest is clear to auscultation, no wheezing or crackles. ABDOMEN: Soft, nontender, nondistended, normoactive bowel sounds. No palpable organomegaly. MUSCULOSKELETAL: No joint swelling or deformity. EXTREMITIES: No cyanosis, clubbing, or pedal edema. NEUROLOGICAL: Gross neurological examination did not reveal any focal deficits. SKIN: No rashes. Assessment and Plan Plan: -Chest pain most probably secondary to alcoholic gastritis. Cardiology evaluated the patient symptoms are consistent with acute coronary syndrome -Hypertension -Alcohol abuse. -Alcoholic hepatitis acute -Proximal atrial fibrillation patient is presently sinus rhythm continue with metoprolol - nicotine dependence: Counseling was provided. -Depression Patient Condition at Discharge: Fair Plan - Discharge Summary Discharge Rx Participant: No New Discharge Prescriptions: New Escitalopram [Lexapro] 10 mg PO DAILY #30 tab Mirtazapine [Remeron] 15 mg PO HS #30 tab Naltrexone HCl [Revia] 50 mg PO DAILY #30 tab lisinopriL [Zestril] 10 mg PO DAILY #30 tab Continue oxyCODONE HCL/ACETAMINOPHEN [Percocet 10-325 mg] 1 tab PO Q6HR Aspirin 81 mg PO DAILY chew Metoprolol Succinate [Kapspargo Sprinkle] 50 mg PO AC-BRKFST #30 cap.spr.24 Pravastatin Sodium [Pravachol] 80 mg PO HS #30 tab Thiamine HCl [Vitamin B-1] 100 mg PO DAILY #30 tablet Discontinued lisinopriL [Zestril] 5 mg PO DAILY #30 tab Discharge Medication List oxyCODONE HCL/ACETAMINOPHEN [Percocet 10-325 mg] 1 tab PO Q6HR 07/07/20 [History] Aspirin 81 mg PO DAILY chew 07/10/20 [Rx] Metoprolol Succinate [Kapspargo Sprinkle] 50 mg PO AC-BRKFST #30 cap.spr.24 07/10/20 [Rx] Pravastatin Sodium [Pravachol] 80 mg PO HS #30 tab 07/10/20 [Rx] Thiamine HCl [Vitamin B-1] 100 mg PO DAILY #30 tablet 07/10/20 [Rx] Escitalopram [Lexapro] 10 mg PO DAILY #30 tab 07/14/20 [Rx] Mirtazapine [Remeron] 15 mg PO HS #30 tab 07/14/20 [Rx] Naltrexone HCl [Revia] 50 mg PO DAILY #30 tab 07/14/20 [Rx] lisinopriL [Zestril] 10 mg PO DAILY #30 tab 07/14/20 [Rx] Follow up Appointment(s)/Referral(s): Marybel Steinberg MD [Primary Care Provider] - 3 Days Sal Savage MD [STAFF PHYSICIAN] - 1 Week
== END 2020-07-14 13:45 | disposition home or self-care (01) ==
LOC: EC 05:26 → 6NMEDSUR 06:37 → 3SCARD 09:50
PROVIDERS: ADMIT Hospitalist; ATTEND Hospitalist
DX: R07.89 Other chest pain (principal); F10.229 Alcohol dependence with intoxication, unspecified; K29.20 Alcoholic gastritis without bleeding; K70.10 Alcoholic hepatitis without ascites; R79.89 Other specified abnormal findings of blood chemistry; I10 Essential (primary) hypertension; I48.0 Paroxysmal atrial fibrillation; I08.1 Rheumatic disorders of both mitral and tricuspid valves; I27.20 Pulmonary hypertension, unspecified; I31.3 Pericardial effusion (noninflammatory); G89.29 Other chronic pain; M54.9 Dorsalgia, unspecified; M23.207 Derangement of unspecified meniscus due to old tear or injury, left knee; F17.210 Nicotine dependence, cigarettes, uncomplicated; F32.9 Major depressive disorder, single episode, unspecified; F41.9 Anxiety disorder, unspecified; Z20.822 Contact with and (suspected) exposure to COVID-19; Y90.8 Blood alcohol level of 240 mg/100 ml or more; R45.851 Suicidal ideations; Z79.82 Long term (current) use of aspirin; Z79.891 Long term (current) use of opiate analgesic; Z79.899 Other long term (current) drug therapy; Z82.49 Family history of ischemic heart disease and other diseases of the circulatory system; Z80.41 Family history of malignant neoplasm of ovary
CPT/HCPCS: 96376; 96361 ×3; 96372; 96375; 93005 ×3; 96374; 99285; 36415; 80053 ×2; 82550; 83605; 83690; 83735 ×2; 84100; 84484; 85025; 85610; 85730; 81003; 87635; 71046; G0378 ×3; G0480; J2060; J2270; J3411; J3475; C9113; 80320

== ENCOUNTER 2020-08-04 11:17 | Inpatient (IN) | payer OTHER ==
[2020-08-04 13:13] LABS: Glucose,Whole Blood 93 mg/dL (75-99)
[2020-08-04] MEDS ORDERED: ONDANSETRON 4 MG/2 ML VIAL IVP PRN (18:27)
[2020-08-04] MEDS ORDERED: ACETAMINOPHEN TAB 325 MG TAB PO PRN (18:29)
[2020-08-04] MEDS ORDERED: LORazepam 2 MG/ML INJ IV PRN ×3 (18:29→21:18)
[2020-08-04] MEDS: oxyCODONE-APAP 10-325MG 1 EACH TAB PO PRN (19:07)
[2020-08-04] MEDS: PANTOPRAZOLE 40 MG TABLET PO SCH (19:07)
[2020-08-04] MEDS: lisinopriL 10 MG TAB PO SCH (19:07)
[2020-08-04 19:36] LABS: Basophils % (A) 0 %; Eosinophils # (A) 0.1 k/uL (0-0.7); Eosinophils % (A) 1 %; HCT 41.5 % (39.0-53.0); HGB 14.1 gm/dL (13.0-17.5); Lymphocytes # (A) 1.8 k/uL (1.0-4.8); Lymphocytes % (A) 22 %; MCH 32.7 pg (25.0-35.0); MCV 96.2 fL (80.0-100.0); Mean Platelet Volume 7.2; Monocytes # (A) 0.3 k/uL (0-1.0); Monocytes % (A) 4 %; Neutrophils # (A) 6.1 k/uL (1.3-7.7); Neutrophils % (A) 73 %; Platelet Count 207 k/uL (150-450); RBC 4.32 m/uL (4.30-5.90); RDW 11.8 % (11.5-15.5); WBC 8.4 k/uL (3.8-10.6)
[2020-08-04 19:37] LABS: Prothrombin Time 10.8 sec (9.0-12.0)
[2020-08-04 19:54] LABS: ALT 95 U/L (4-49); AST 142 U/L (17-59); African American GFR (CKD) >90 (>60 ml/min/1.73 sqM); Albumin 4.2 g/dL (3.5-5.0); Alkaline Phosphatase 45 U/L (38-126); Anion Gap 5 mmol/L; Blood Urea Nitrogen 16 mg/dL (9-20); Calcium 9.5 mg/dL (8.4-10.2); Carbon Dioxide 29 mmol/L (22-30); Chloride 104 mmol/L (98-107); Glucose 88 mg/dL (74-99); Non-African American GFR(CKD) >90 (>60 ml/min/1.73 sqM); Sodium 138 mmol/L (137-145); Total Bilirubin 0.7 mg/dL (0.2-1.3); Total Protein 6.6 g/dL (6.3-8.2)
[2020-08-04] MEDS: PRAVASTATIN SODIUM 80 MG TAB PO SCH (21:40)
[2020-08-04] MEDS: THIAMINE 100 MG/ML 2 ML VIAL IVP SCH (21:42)
[2020-08-04] MEDS: LORazepam 2 MG/ML INJ IV PRN (21:42)
[2020-08-05] MEDS: HEPARIN SODIUM,PORCINE/PF 5,000 UNIT/0.5 ML SYRINGE SQ SCH ×4 (00:48→20:34)
[2020-08-05] MEDS: oxyCODONE-APAP 10-325MG 1 EACH TAB PO PRN ×4 (00:49→20:34)
[2020-08-05] MEDS: PANTOPRAZOLE 40 MG TABLET PO SCH ×2 (05:22→06:26)
[2020-08-05] MEDS: THIAMINE 100 MG TAB PO SCH ×2 (06:26→16:19)
--- NOTE | 2020-08-05 07:20 | P.HPIM ---
History of Present Illness This is a pleasant 55 years old male with past medical history of hypertension, COPD, alcohol abuse, paroxysmal atrial fibrillation Presents initially to [facility] with dyspnea for about one week duration. He was recently hospitalized on 07/04/2020 with atrial fibrillation and RVR and he left AMA at that time. This time presents also with chest pain. EKG showed sinus rhythm. This chest pain is described as burning sensation/10 in severity. With no dizziness or lightheadedness. No nausea or vomiting. Patient was started on IV heparin, cardiology team were consulted. Patient is a daily drinker and underw ent WITHDRAWAL where he was monitored in the ICU for 2 days, one day he needed more than 24 mg of Ativan. He was severely agitated and he had to be restrained, however he improved within one day and he was more awake, although he needed significant monitoring and Ativan as needed per [facility] protocol. Patient underwent cardiac catheterization by Dr. Fried 2 days ago which showed extensive calcified right and left coronary system 50% distal left main and disease intermediate disease of the RCA. 2-D echocardiogram showing mild to moderate LVH, LV systolic function hyperdynamic with LVEF of 80%. Following catheterization patient did have significant withdrawal symptoms requiring higher doses of IV Ativan as above. However as he become more stabilized and awake cardiology team recommended inpatient evaluation by cardiothoracic surgery which is not available [facility] so it was transferred to my current hospital for further cardiothoracic surgery evaluation. Review of Systems CONSTITUTIONAL: No fever, no malaise, no fatigue. HEENT: No recent visual problems or hearing problems. Denied any sore throat. CARDIOVASCULAR: No orthopnea, PND, no palpitations, no syncope. PULMONARY: No shortness of breath, no cough, no hemoptysis. GASTROINTESTINAL: No diarrhea, no nausea, no vomiting, no abdominal pain. Normoactive bowel sounds. NEUROLOGICAL: No headaches, no weakness, no numbness. HEMATOLOGICAL: Denies any bleeding or petechiae. GENITOURINARY: Denies any burning micturition, frequency, or urgency. MUSCULOSKELETAL/RHEUMATOLOGICAL: Denies any joint pain, swelling, or any muscle pain. ENDOCRINE: Denies any polyuria or polydipsia. Past Medical History Past Medical History: Atrial Fibrillation, Hyperlipidemia, Hypertension Additional Past Medical History / Comment(s): Pt recently admitted to [facility] on 07/09/20 with ETOH intoxication/abuse, sinus tach, chest discomfort and uncontro lled HTN. Other hx: Pt hospitalized 07/04/20 at [facility] for afib and elevated troponins/pt left AMA, chronic cervical and back pain, L knee pain/meniscus tear. History of Any Multi-Drug Resistant Organisms: None Reported Past Surgical History: No Surgical Hx Reported Past Anesthesia/Blood Transfusion Reactions: Unable to Obtain Additional Past Anesthesia/Blood Transfusion Reaction / Comment(s): Pt states he has never had surgery. Past Psychological History: Anxiety Additional Psychological History / Comment(s): Pt resides alone. He is indep endent. Smoking Status: Current every day smoker Past Alcohol Use History: Occasional Additional Past Alcohol Use History / Comment(s): Pt started smoking in 1985 and is less than a ppd smoker. Pt states he drinks up to a 12 pack of beer but not every day. Past Drug Use History: None Reported - Past Family History Father Family Medical History: Coronary Artery Disease (CAD) Additional Family Medical History / Comment(s): Father is 82 yrs old. He had CABG Mother Family Medical History: Cancer Additional Family Medical History / Comment(s): Mother of ovarian cancer at the age of 63 yrs. Medications and Allergies Home Medications Medication Instructions Recorded Confirmed Type oxyCODONE HCL/ACETAMINOPHEN 1 tab PO Q6HR 07/07/20 08/04/20 History [Percocet 10-325 mg] Aspirin 81 mg PO DAILY chew 07/10/20 08/04/20 Rx Pravastatin Sodium [Pravachol] 80 mg PO HS #30 tab 07/10/20 08/04/20 Rx Omeprazole [PriLOSEC] 40 mg PO MARKOS-MONICA #30 capsule. 07/14/20 08/04/20 Rx lisinopriL [Zestril] 10 mg PO DAILY #30 tab 07/14/20 08/04/20 Rx Allergies Allergy/AdvReac Type Severity Reaction Status Date / Time No Known Allergies Allergy Verified 08/04/20 15:12 Physical Exam Vitals: Vital Signs Temp Pulse Resp BP Pulse Ox 08/05/20 04:00 97.0 F L 77 18 141/101 95 08/05/20 01:26 70 17 08/05/20 00:16 98.0 F 78 16 137/82 95 08/04/20 20:10 97.9 F 86 18 149/89 96 08/04/20 20:00 86 18 08/04/20 18:35 97.6 F 87 20 138/83 96 08/04/20 16:00 97.6 F 87 20 138/83 96 08/04/20 13:10 76 20 124/84 97 Intake and Output 08/04/20 08/04/20 08/05/20 14:59 22:59 06:59 Intake Total 0 Output Total 200 Balance 0 -200 Intake: Oral 0 Output: Urine 200 Other: Voiding Method Urinal Urinal # Voids 0 1 Weight 96.6 kg 96.1 kg GENERAL: The patient is alert and oriented x3, not in any acute distress. Well developed, well nourished. HEENT: Pupils are round and equally reacting to light. EOMI. No scleral icterus. No conjunctival pallor. Normocephalic, atraumatic. No pharyngeal erythema. No thyromegaly. CARDIOVASCULAR: S1 and S2 present. No murmurs, rubs, or gallops. PULMONARY: Chest is clear to auscultation, no wheezing or crackles. ABDOMEN: Soft, nontender, nondistended, normoactive bowel sounds. No palpable organomegaly. MUSCULOSKELETAL: No joint swelling or deformity. EXTREMITIES: No cyanosis, clubbing, or pedal edema. NEUROLOGICAL: Gross neurological examination did not reveal any focal deficits. SKIN: No rashes. No petechiae Results CBC & Chem 7: 08/04/20 18:56 08/04/20 18:56 Labs: Abnormal Lab Results - Last 24 Hours (Table) 08/04/20 Range/Units 18:56 AST 142 H (17-59) U/L ALT 95 H (4-49) U/L Thrombosis Risk Factor Assmnt - Choose All That Apply Each Factor Represents 1 point: Acute CT, Age 41-60 years Other Risk Factors: Yes Each Risk Factor Represents 2 Points: Patient confined to bed Other congenital or acquired thrombophilia - If yes, enter type in comment: No Thrombosis Risk Factor Assessment Total Risk Factor Score: 4 Thrombosis Risk Factor Assessment Level: Moderate Risk Assessment and Plan Plan: - unstable angina, CT angiogram of the chest negative for PE. Serial troponins normal. Cardiac catheterization showed extensive calcified right and left coronary, 50% left main disease and RCA is intermediate disease. Metoprolol increased to 50 mg daily, patient was started on Imdur. She'll require cardiothoracic surgery evaluation which were consulted. 2-D echo showing hyperdynamic LVEF 80% - Alcohol abuse undergoing alcohol withdrawal and delirium tremens: He drinks 4- 5 drinks per day of liquor. Continue with CIWA protocol, thiamine. - Atrial fibrillation, currently heart rate is controlled, he is on subcutaneous heparin for now.He is also on baby aspirin - Depression, started on Cymbalta. Patient denies suicidal ideation - Hypertension, which was uncontrolled during hospitalization. Continue with Norvasc, metoprolol, losartan, Imdur, hydralazine as needed for abscess SBP greater than 180 - Elevated d-dimer: CT angiogram negative for PE - Dyslipidemia: Continue with statin- - Generalized weakness, PT/OT evaluation - DVT prophylaxis: Subcutaneous heparin - GI prophylaxis: Protonix
[2020-08-05 07:49] LABS: Basophils % (A) 1 %; Eosinophils # (A) 0.2 k/uL (0-0.7); Eosinophils % (A) 2 %; HCT 37.7 % (39.0-53.0); HGB 13.1 gm/dL (13.0-17.5); Lymphocytes % (A) 32 %; MCH 33.5 pg (25.0-35.0); MCHC 34.9 g/dL (31.0-37.0); Mean Platelet Volume 7.4; Monocytes # (A) 0.3 k/uL (0-1.0); Monocytes % (A) 5 %; Neutrophils # (A) 3.7 k/uL (1.3-7.7); Neutrophils % (A) 59 %; Platelet Count 188 k/uL (150-450); RBC 3.93 m/uL (4.30-5.90); RDW 11.9 % (11.5-15.5); WBC 6.2 k/uL (3.8-10.6)
[2020-08-05 07:56] LABS: African American GFR (CKD) >90 (>60 ml/min/1.73 sqM); Anion Gap 3 mmol/L; Blood Urea Nitrogen 14 mg/dL (9-20); Carbon Dioxide 30 mmol/L (22-30); Chloride 103 mmol/L (98-107); Glucose 91 mg/dL (74-99); Magnesium 1.7 mg/dL (1.6-2.3); Non-African American GFR(CKD) >90 (>60 ml/min/1.73 sqM); Potassium 3.9 mmol/L (3.5-5.1); Sodium 136 mmol/L (137-145)
[2020-08-05 07:57] LABS: Prothrombin Time 10.4 sec (9.0-12.0)
[2020-08-05] MEDS: NICOTINE 21MG/24HR PATCH TRANSDERM SCH (09:37)
[2020-08-05] MEDS: lisinopriL 10 MG TAB PO SCH (09:37)
[2020-08-05] MEDS: THIAMINE 100 MG/ML 2 ML VIAL IVP SCH (09:37)
[2020-08-05] MEDS: ASPIRIN 81 MG PO SCH (09:37)
[2020-08-05 11:54] LABS: T4, Free (Free Thyroxine) 1.34 ng/dL (0.78-2.19)
--- NOTE | 2020-08-05 11:57 | US ---
EXAMINATION TYPE: US carotid duplex BILAT DATE OF EXAM: 08/05/2020 COMPARISON: NONE CLINICAL HISTORY: Pre-Op Cardiac Surgery. Pre-OP CABG EXAM MEASUREMENTS: RIGHT: Peak Systolic Velocity (PSV) cm/sec ----- Right CCA: 65.3 ----- Right ICA: 63.6 ----- Right ECA: 93.3 ICA/CCA ratio: 1.0 RIGHT: End Diastole cm/sec ----- Right CCA: 26.1 ----- Right ICA: 25.2 ----- Right ECA: 13.1 LEFT: Peak Systolic Velocity (PSV) cm/sec ----- Left CCA: 68.0 ----- Left ICA: 91.1 ----- Left ECA: 85.6 ICA/CCA ratio: 1.3 LEFT: End Diastole cm/sec ----- Left CCA: 17.5 ----- Left ICA: 37.3 ----- Left ECA: 12.0 VERTEBRALS (direction of flow): Right Vertebral: Antegrade Left Vertebral: Antegrade Rhythm: Normal No significant stenosis seen IMPRESSION: There is no sonographic evidence for hemodynamically significant stenosis in the carotid arteries. Criteria for Assigning % of Stenosis / Diameter reduction (Estimation based on the indirect measurements of the internal carotid artery velocities (ICA PSV). 1. Normal (no stenosis)=ICA PSV < 125 cm/s: ratio < 2.0: ICA EDV<40 cm/s. 2. Less than 50% stenosis=ICA PSV < 125 cm/s: ratio < 2.0: ICA EDV<40 cm/s. 3. 50 to 69% stenosis=ICA PSV of 125 to 230 cm/s: ration 2.0 ? 4.0: ICA EDV 40-100 cm/s. 4. Greater than 70% stenosis to near occlusion= ICA PSV > 230 cm/s: ratio > 4.0: ICA EDV > 100 cm/s. 5. Near occlusion= ICA PSV velocities may be low or undetectable: variable ratio and ICA EDV. 6. Total occlusion=unable to detect flow.
[2020-08-05] MEDS: METOPROLOL TARTRATE 25 MG TAB PO SCH ×2 (12:04→20:34)
--- NOTE | 2020-08-05 13:54 | P.CRDCN ---
History of Present Illness History of present illness: This is a 55-year-old male with a past medical history of hypertension, paroxysmal atrial fibrillation, alcohol abuse, COPD and chronic nicotine dependence. 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 He presents emergency department at [facility] for worsening shortness of breath and chest pain. Patient reported to have intermittent chest pain described as heaviness, burning sensation, radiating to his left elbow, worse with exertion and associated shortness of breath. Patient's troponin was 0.047, his EKG showed anterolateral changes concerning for ischemia. Cardiac catheterization was recommended due to unstable angina. Echocardiogram was completed which revealed mild to moderate concentric left ventricular hypertrophy, LV systolic function hyperdynamic with LVEF of 80% Patient underwent cardiac catheterization with Dr. Savage on 08/03/20 which revealed extremely calcified right and left coronary systems, distal left main disease appearing to be in the range of 50%, intermediate disease involving the ostial RCA, normal LVEDP. . It was recommended for CT surgery evaluation regarding revascularization. Patient was transferred to [facility] for cardiothoracic surgery evaluation He was recently hospitalized 07/04/2020 secondary to alcohol abuse hydrogen power plant manager evaluated him for new onset atrial fibrillation with RVR he was converted to sinus mechanism on a beta lurdes. Echocardiogram at that time revealed an EF of 55-60%, moderate MR. He had a mildly elevated d-dimer and underwent CT chest showed no evidence of pulmonary embolism. Patient was in the intensive care unit for 2 days. Alcohol withdrawal. Patient was severely agitated and he was restrained, he unfortunately left the hospital against medical advice. Patient seen and examined at bedside, sitting up in no acute distress. He states he has been having increased left sided chest pain states its "on fire" and associated shortness of breath, nausea, diaphoresis. Pain does radiate to left arm and left jaw and elbows. He states his last drink was Sunday. He typically drinks a six pack of beer in 2-3 mixed drinks daily. He is current everyday smoker, smokes 1/2-1ppd. He denies history of Diabetes, previous WI, Stroke. REVIEW OF SYSTEMS At the time of my exam: CONSTITUTIONAL: Denies fever or chills. CARDIOVASCULAR: Positive chest pain, positive shortness of breath. Denies orthopnea, PND or palpitations. RESPIRATORY: Denies cough. GASTROINTESTINAL: +nausea Denies abdominal pain, diarrhea, constipation, vomiting. MUSCULOSKELETAL: Denies myalgias. NEUROLOGIC: Denies numbness, tingling, headacbe or weakness. ENDOCRINE: Denies fatigue, weight change, polydipsia or polyurina. GENITOURINARY: Denies burning, hematuria or urgency with micturation. HEMATOLOGIC: Denies history of anemia or bleeding. PHYSICAL EXAMINATION Blood pressure 141/101 heart rate 75 afebrile and maintaining oxygen saturation 96% on room air CONSTITUTIONAL: No apparent distress. HEENT: Head is normocephalic. Pupils are equal, round. Sclerae anicteric. Mucous membranes of the mouth are moist. No JVD. No carotid bruit. CHEST EXAMINATION: Lungs are clear to auscultation. No chest wall tenderness is noted on palpation or with deep breathing. HEART EXAMINATION: Regular rate and rhythm. S1, S2 heard. No murmurs, gallops or rub. ABDOMEN: Soft, nontender. Positive bowel sounds. EXTREMITIES: 2+ peripheral pulses, no lower extremity edema and no calf tenderness. SKIN: Right radial site is clean dry intact, 2+ pulses NEUROLOGIC EXAMINATION: Patient is awake, alert and oriented x3. ASSESSMENT Chest pain, shortness of breath Coronary artery disease Hypertension History of Paroxysmal atrial fibrillation- [id number] score 1 at that time, patient was not on anticoagulation. Currently in sinus mechanism. ETOH abuse Chronic nicotine dependence Family history of CAD PLAN Resume aspirin, statin, beta lurdes, SYLWIA inhibitor Cardiothoracic surgery is consulted and starting pre-operative work up. Will monitor and discuss anticoagulation Continue cardiac telemetry Smoking and alcohol cessation discussed and highly recommended. Medical management per primary team Further recommendations based on clinical course Nurse Practitioner note has been reviewed, I agree with a documented findings and plan of care. Patient was seen and examined. Past Medical History Past Medical History: Atrial Fibrillation, Hyperlipidemia, Hypertension Additional Past Medical History / Comment(s): Pt recently admitted to [facility] on 07/09/20 with ETOH intoxication/abuse, sinus tach, chest discomfort and uncontrolled HTN. Other hx: Pt hospitalized 07/04/20 at [facility] for afib and elevated troponins/pt left AMA, chronic cervical and back pain, L knee pain/meniscus tear. History of Any Multi-Drug Resistant Organisms: None Reported Past Surgical History: No Surgical Hx Reported Past Anesthesia/Blood Transfusion Reactions: Unable to Obtain Additional Past Anesthesia/Blood Transfusion Reaction / Comment(s): Pt states he has never had surgery. Past Psychological History: Anxiety Additional Psychological History / Comment(s): Pt resides alone. He is independent. Smoking Status: Current every day smoker Past Alcohol Use History: Occasional Additional Past Alcohol Use History / Comment(s): Pt started smoking in 1985 and is less than a ppd smoker. Pt states he drinks up to a 12 pack of beer but not every day. Past Drug Use History: None Reported - Past Family History Father Family Medical History: Coronary Artery Disease (CAD) Additional Family Medical History / Comment(s): Father is 82 yrs old. He had CABG Mother Family Medical History: Cancer Additional Family Medical History / Comment(s): Mother of ovarian cancer at the age of 63 yrs. Medications and Allergies Home Medications Medication Instructions Recorded Confirmed Type oxyCODONE HCL/ACETAMINOPHEN 1 tab PO Q6HR 07/07/20 08/04/20 History [Percocet 10-325 mg] Aspirin 81 mg PO DAILY chew 07/10/20 08/04/20 Rx Pravastatin Sodium [Pravachol] 80 mg PO HS #30 tab 07/10/20 08/04/20 Rx Omeprazole [PriLOSEC] 40 mg PO AC-BRKFST #30 capsule. 07/14/20 08/04/20 Rx lisinopriL [Zestril] 10 mg PO DAILY #30 tab 07/14/20 08/04/20 Rx Allergies Allergy/AdvReac Type Severity Reaction Status Date / Time No Known Allergies Allergy Verified 08/04/20 15:12 Physical Exam Vitals: Vital Signs Temp Pulse Resp BP Pulse Ox 08/05/20 04:00 97.0 F L 77 18 141/101 95 08/05/20 01:26 70 17 08/05/20 00:16 98.0 F 78 16 137/82 95 08/04/20 20:10 97.9 F 86 18 149/89 96 08/04/20 20:00 86 18 08/04/20 18:35 97.6 F 87 20 138/83 96 08/04/20 16:00 97.6 F 87 20 138/83 96 08/04/20 13:10 76 20 124/84 97 Intake and Output 08/04/20 08/05/20 08/05/20 22:59 06:59 14:59 Intake Total 0 Output Total 200 Balance 0 -200 Intake: Oral 0 Output: Urine 200 Other: Voiding Method Urinal Urinal # Voids 1 Weight 96.1 kg Results 08/05/20 07:09 08/05/20 07:09 Cardiac Enzymes 08/04/20 Range/Units 18:56 AST 142 H (17-59) U/L Coagulation 08/04/20 Range/Units 18:56 PT 10.8 (9.0-12.0) sec CBC 08/04/20 Range/Units 18:56 WBC 8.4 (3.8-10.6) k/uL RBC 4.32 (4.30-5.90) m/uL Hgb 14.1 (13.0-17.5) gm/dL Hct 41.5 (39.0-53.0) % Plt Count 207 (150-450) k/uL Comprehensive Metabolic Panel 08/04/20 Range/Units 18:56 Sodium 138 (137-145) mmol/L Potassium 4.0 (3.5-5.1) mmol/L Chloride 104 (98-107) mmol/L Carbon Dioxide 29 (22-30) mmol/L BUN 16 (9-20) mg/dL Creatinine 0.74 (0.66-1.25) mg/dL Glucose 88 (74-99) mg/dL Calcium 9.5 (8.4-10.2) mg/dL AST 142 H (17-59) U/L ALT 95 H (4-49) U/L Alkaline Phosphatase 45 (38-126) U/L Total Protein 6.6 (6.3-8.2) g/dL Albumin 4.2 (3.5-5.0) g/dL Current Medications Generic Name Dose Route Start Last Admin Trade Name Freq PRN Reason Stop Dose Admin Acetaminophen 650 mg 08/04/20 18:29 Acetaminophen Tab 325 Mg Tab PO Q6HR PRN Fever and/ or Pain Aspirin 81 mg 08/05/20 09:00 Aspirin 81 Mg PO DAILY TAYLOR Heparin Sodium (Porcine) 5,000 unit 08/04/20 20:00 08/05/20 05:22 Heparin Sodium,Porcine/Pf 5,000 Unit/0.5 Ml Syringe SQ 5,000 unit Q8H TAYLOR Administration Lisinopril 10 mg 08/04/20 18:30 08/04/20 19:07 Lisinopril 10 Mg Tab PO 10 mg DAILY TAYLOR Administration Lorazepam 1 mg 08/04/20 21:18 08/04/20 21:42 Lorazepam 2 Mg/Ml Inj IV 1 mg Q2HR PRN Administration CIWA 8 or 9 Lorazepam 1 mg 08/04/20 21:18 Lorazepam 2 Mg/Ml Inj IV Q1HR PRN CIWA 10 to 15 Lorazepam 2 mg 08/04/20 21:18 08/05/20 00:54 Lorazepam 2 Mg/Ml Inj IV 08/06/20 21:18 2 mg Q10M PRN Administration CIWA 16 or higher Nicotine 1 patch 08/05/20 09:00 Nicotine 21mg/24hr Patch TRANSDERM DAILY TAYLOR Ondansetron HCl 4 mg 08/04/20 18:27 Ondansetron 4 Mg/2 Ml Vial IVP Q6HR PRN Nausea And Vomiting Oxycodone/Acetaminophen 1 each 08/04/20 18:25 08/05/20 06:26 Oxycodone-Apap 10-325mg 1 Each Tab PO 1 each Q6HR PRN Administration Pain Pantoprazole Sodium 40 mg 08/04/20 18:30 08/05/20 06:26 Pantoprazole 40 Mg Tablet PO 40 mg AC-BRKFST TAYLOR Administration Pravastatin Sodium 80 mg 08/04/20 21:00 08/04/20 21:40 Pravastatin Sodium 80 Mg Tab PO 80 mg HS TAYLOR Administration Thiamine HCl 100 mg 08/04/20 20:45 08/04/20 21:42 Thiamine 100 Mg/Ml 2 Ml Vial IVP 100 mg DAILY TAYLOR Administration Thiamine HCl 100 mg 08/05/20 07:30 08/05/20 06:26 Thiamine 100 Mg Tab PO 100 mg BID-W/MEALS TAYLOR Administration Intake and Output 08/04/20 08/05/20 08/05/20 22:59 06:59 14:59 Intake Total 0 Output Total 200 Balance 0 -200 Intake: Oral 0 Output: Urine 200 Other: Voiding Method Urinal Urinal # Voids 1 Weight 96.1 kg 08/04/20 18:56 08/04/20 18:56
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
[2020-08-05 15:38] LABS: Appearance,Urine Clear (Clear); Bilirubin,Urine Negative (Negative); Blood,Urine Negative (Negative); Color,Urine Yellow; Glucose,Urine (UA) Negative (Negative); Ketones,Urine Negative (Negative); Leukocyte Esterase,Urine Negative (Negative); Nitrite,Urine Negative (Negative); PH, Urine 6.5 (5.0-8.0); Protein,Urine Negative (Negative); Specific Gravity,Urine 1.017 (1.001-1.035); Urobilinogen,Urine <2.0 mg/dL (<2.0)
[2020-08-05] MEDS ORDERED: oxyCODONE-APAP 5-325MG 1 EACH TAB PO STA (15:50)
[2020-08-05] MEDS ORDERED: diphenhydrAMINE 25 MG CAP PO PRN (15:52)
[2020-08-05] MEDS: GABAPENTIN 300 MG CAP PO SCH ×2 (16:20→22:46)
[2020-08-05] MEDS: LORazepam 2 MG/ML INJ IV PRN ×2 (17:22→20:35)
[2020-08-05 17:56] LABS: Hemoglobin A1C 5.5 % (4.0-6.0)
[2020-08-05 19:51] LABS: Hepatitis A Antibody IgM Non-Reactive (Non-Reactive); Hepatitis B Core IgM Non-Reactive (Non-Reactive); Hepatitis B Surface Antigen Non-Reactive (Non-Reactive); Hepatitis C IgG Antibody Non-Reactive (Non-Reactive)
[2020-08-05 20:19] LABS: Chol/HDL Ratio 4.28
[2020-08-05] MEDS: MUPIROCIN 2% OINT 22 GM TUBE NASAL SCH (20:34)
[2020-08-05] MEDS: PRAVASTATIN SODIUM 80 MG TAB PO SCH (22:46)
[2020-08-06] MEDS: HEPARIN SODIUM,PORCINE/PF 5,000 UNIT/0.5 ML SYRINGE SQ SCH ×3 (05:19→20:21)
[2020-08-06] MEDS: oxyCODONE-APAP 10-325MG 1 EACH TAB PO PRN ×4 (06:18→20:21)
[2020-08-06] MEDS: THIAMINE 100 MG TAB PO SCH ×2 (06:18→16:16)
[2020-08-06] MEDS: PANTOPRAZOLE 40 MG TABLET PO SCH (06:19)
[2020-08-06] MEDS ORDERED: oxyCODONE-APAP 5-325MG 1 EACH TAB PO PRN (08:02)
[2020-08-06] MEDS: METOPROLOL TARTRATE 25 MG TAB PO SCH ×2 (09:30→20:21)
[2020-08-06] MEDS: ASPIRIN 81 MG PO SCH (09:30)
[2020-08-06] MEDS: GABAPENTIN 300 MG CAP PO SCH ×3 (09:30→23:08)
[2020-08-06] MEDS: lisinopriL 10 MG TAB PO SCH (09:31)
[2020-08-06] MEDS: NICOTINE 21MG/24HR PATCH TRANSDERM SCH (09:31)
[2020-08-06] MEDS: LORazepam 2 MG/ML INJ IV PRN (09:33)
[2020-08-06] MEDS: MUPIROCIN 2% OINT 22 GM TUBE NASAL SCH ×2 (09:43→20:21)
[2020-08-06] MEDS: THIAMINE 100 MG/ML 2 ML VIAL IVP SCH (09:43)
[2020-08-06] MEDS ORDERED: clonazePAM 1 MG TAB PO SCH (13:15)
--- NOTE | 2020-08-06 14:42 | P.PN ---
Subjective Progress Note Date: 08/06/20 Principal diagnosis: Coronary artery disease with left main disease. Past medical history significant for hypertension, dyslipidemia, paroxysmal atrial fibrillation with rapid ventricular response, chronic ongoing EtOH abuse with drinking about a sixpack of beer a day or 4-5 vodkas per day, recent EtOH withdrawal currently on the CIWA protocol, elevated transaminase enzymes with his AST 142 and ALT 95, chronic ongoing tobacco abuse, anxiety, depression, COPD and history of coronary artery disease with his father having a coronary artery bypass grafting surgery in his 70s. The patient was seen in follow-up today 08/06/2020 at his bedside on the cardiac stepdown unit. Currently he is sitting up in a chair, is awake, alert and oriented 3. Denies any complaints of pain or shortness of breath at this time. A 5 m walk test was completed with the patient this morning. Preoperative teaching has been reinforced with the patient and his questions were answered. Remote telemetry showing normal sinus rhythm heart rate 75 BPM. Oxygen saturation are 95% on room air and he is achieving 2750 mL on his incentive spirometry. A bedside FEV1 was completed yesterday which showed her predicted value of 51%. The carotid duplex study showed no sonographic evidence for hem odynamically significant stenosis in his carotid arteries. Objective - Vital Signs Vital signs: Vital Signs Temp 98.0 F 08/06/20 04:00 Pulse 82 08/06/20 04:00 Resp 17 08/06/20 04:00 BP 147/88 08/06/20 04:00 Pulse Ox 95 08/06/20 04:00 Intake & Output 08/05/20 08/06/20 08/06/20 18:59 06:59 18:59 Intake Total 240 Output Total 750 350 Balance -510 -350 Weight 92.8 kg Intake: Oral 240 Output: Urine 750 350 Other: Voiding Method Urinal Urinal - Exam CONSTITUTIONAL: Sitting up to the bedside chair on the cardiac stepdown unit, appears comfortable, cooperative, no apparent acute distress. HEENT: Neck is supple, no JVD, no lymphadenopathy. RESPIRATORY: Lungs sounds essentially clear throughout. Respirations are symmetrical and nonlabored. Currently on room air with oxygen saturations 95%. Achieving 2750 mL on his incentive spirometry. Strong cough. CARDIOVASCULAR: Regular rhythm and rate. S1 and S2 present, negative for S3, gallop or murmur. Palpable peripheral pulses bilaterally, no edema. No calf pain or tenderness noted. Remote telemetry showing normal sinus rhythm heart rate 75 BPM. GASTROINTESTINAL: Abdomen soft, nontender, nondistended. No organomegaly appreciated. Active bowel sounds present 4 quadrants. Tolerating diet. No guarding or rigidity. GENITOURINARY: Continues to void. INTEGUMENTARY: Skin is warm and dry with no evidence of clubbing or cyanosis. NEUROLOGIC: Cranial nerves II through XII intact. No focal deficits. MUSKULOSKELETAL: Able to move all extremities, strength equal bilaterally. PSYCHIATRIC: Alert and oriented to person place and time, flat affect, intact judgment and insight. - Labs CBC & Chem 7: 08/05/20 07:09 08/05/20 07:09 Labs: Abnormal Lab Results - Last 24 Hours (Table) 08/05/20 08/05/20 08/05/20 Range/Units 07:09 07:09 10:21 RBC 3.93 L (4.30-5.90) m/uL Hct 37.7 L (39.0-53.0) % Sodium 136 L (137-145) mmol/L Triglycerides 185.0 H (0.0-149.0) mg/dL HDL Cholesterol 39.0 L (40.0-60.0) mg/dL TSH 5.180 H (0.465-4.680) mIU/L Microbiology - Last 24 Hours (Table) 08/05/20 12:17 Nasal Screen MRSA/MSSA - Preliminary Nasal Swab Assessment and Plan Assessment: 1. Symptomatic multivessel coronary artery disease 2. Unstable angina 3. History of paroxysmal atrial fibrillation with rapid ventricular response, currently in normal sinus rhythm 4. Hypertension 5. Dyslipidemia 6. Ongoing chronic tobacco dependence 7. EtOH abuse with history of EtOH withdrawal, currently on the [facility] protocol 8. Chronic obstructive pulmonary disease, preoperative FEV1 51% of predicted value 9. History of noncompliance 10. Elevated transaminase enzymes, AST 142 and ALT 95 on admission 11. Hypomagnesemia, magnesium 1.7 12. History of depression 13. History of anxiety Plan: 1. Continue to maximize medical therapy with aspirin, statin, beta lurdes and SYLWIA inhibitor. 2. Continue to encourage use of his incentive spirometry 10 times every hour while awake. 3. A 5 m walk test was completed with the patient today, time 1: 3.60 seconds, time 2: 3.83 seconds, time 3: 3.65 seconds. 4. Continue preoperative teaching, preoperative testing and progress. 5. Reinforced with the patient importance of risk modification including alcohol consumption and smoking cessation. 6. Continue CIWA protocol. 7. Increase activity as tolerated. 8. Medical management per primary care service. 9. Dr. Espino's spoke with Dr. Savage today and the patient will be scheduled for 08/09/2020 for a heart cath with IVUS. 10. More recommendations to follow based on patient's clinical course. Time with Patient: Greater than 30
--- NOTE | 2020-08-06 14:54 | P.CN ---
Psychiatric Consult - . Consult date: 08/06/20 Consult:: 08/06/20 14:52 IDENTIFYING DATA: This patient is a single, unemployed, 55-year-old male was admitted for chest pain and shortness of breath HISTORY OF PRESENT ILLNESS: The patient presented to the hospital on 08/05/20 with chest pain. The patient was recently hospitalized in 07/04/20 with atrial fibrillation and left AMA. The patient underwent cardiac catheterization 3 days ago. Shortly after catheterization, the patient is expressing significant withdrawal symptoms requiring higher doses of IV Ativan. Psychiatry has been consulted for depression and a capacity evaluation. The patient reports that he has been feeling increasingly depressed ever since his mother in 2006. He reports significant symptoms of depression including excessive guilt, low energy, and hopelessness. Despite this, the p atient does not endorse any suicidal ideation, intention, and/or plan. He denies any prior attempts at suicide. He is not reporting any significant history of bipolar symptoms. He denies any increased goal-directed activity, excessive energy, or grandiosity. He denies any significant history of trauma. He is not reporting any history of auditory or visual hallucinations. He denies any paranoia or other delusions. The patient reports that he has been previously prescribed Zoloft and BuSpar for management of depression and anxiety but states that these medications have been unhelpful in the past. He reports that he was only on these medications for approximately 3 weeks.The patient was also evaluated by Dr. Edmonds on 07/13/2020 for alcohol use disorder and suicidal statements. At that time, the patient was started on Lexapro, Remeron, naltrexone. He was recommended to follow up outpatient for dual diagnosis of alcohol and depression. In regards to capacity, the patient states that he is willing to stay for his cardiac treatment. He understands that if he was to leave AGAINST MEDICAL ADVICE and did not have his heart treated, he risks worsening of his condition and likely . PAST PSYCHIATRIC HISTORY: Patient has a history of alcohol use disorder, anxiety, and depression. The patient remembers being prescribed Zoloft and BuSpar in the past. When evaluated on 07/13/[address] Edmonds, he was started on a regimen of Remeron, Lexapro, and Naltrexone. Patient denies any previous psychiatric hospitalizations. The patient reports that he was previously open with [facility]. Patient denies any history of suicide attempts in the past. PAST MEDICAL HISTORY: Past Medical History: Atrial Fibrillation, Hyperlipidemia, Hypertension Additional Past Medical History / Comment(s): Pt recently admitted to [facility] on 07/09/20 with ETOH intoxication/abuse, sinus tach, chest discomfort and uncontrolled HTN. Other hx: Pt hospitalized 07/04/20 at [facility] for afib and elevated troponins/pt left AMA, chronic cervical and back pain, L knee pain/meniscus tear. History of Any Multi-Drug Resistant Organisms: None Reported Past Surgical History: No Surgical Hx Reported Past Anesthesia/Blood Transfusion Reactions: Unable to Obtain Additional Past Anesthesia/Blood Transfusion Reaction / Comment(s): Pt states he has never had surgery. Past Psychological History: Anxiety Additional Psychological History / Comment(s): Pt resides alone. He is independent. Smoking Status: Current every day smoker Past Alcohol Use History: Occasional Additional Past Alcohol Use History / Comment(s): Pt started smoking in 1985 and is less than a ppd smoker. Pt states he drinks up to a 12 pack of beer but not every day. Past Drug Use History: None Reported ALLERGIES: NO KNOWN DRUG ALLERGIES CHEMICAL DEPENDENCY HISTORY: The patient reports a history of heavy alcohol use. He has had multiple DUIs in the past. He does report that his last drink was approximately a week ago. He states that he would drink a 6 pack of beer and if a fifth of liquor was present, he would drink that as well with his friends. He began drinking alcohol at age of 15. He reports that he has been to rehabilitation for alcohol use twice in the past. FAMILY PSYCHIATRIC/SUBSTANCE USE HISTORY: Patient reports a sister diagnosed with schizophrenia. SOCIAL HISTORY: Patient was born and raised in [place], [place]. The patient states that he currently lives in a house alone. He is single, never , and has no children. Reports a history of incarceration for "property crime." He has had several DUIs in the past. MENTAL STATUS EXAM: General Appearance: Patient appears to be stated age is alert, pleasant, and cooperative. Patient appears to have fair hygiene and grooming wearing hospital gown with fair eye contact. Behavior: Patient is calmly seated in his chair without any agitated behavior. Speech: Patient's speech is fluent and nonpressured. Spontaneous, monotone, low in volume. Mood/Affect: Patient reports their mood is "depressed", affect is congruent, constricted. Suicidality/Homicidality: Patient denies having any suicidal or homicidal ideation intent or plan. Perceptions: Patient denies any visual hallucinations and denies any auditory hallucinations Though content/process: There is no evidence of any delusional thought content and thought process is linear and goal-directed. Memory and concentration: AOX3, grossly intact for the purposes of this session. 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 -Patient DOES have decision making capacity at this time and is able to reason through and communicate/appreciate the risks, benefits and alternatives to treatment. -Delirium precautions recommended with patient including - avoiding use of narcotics and [employer]ATE [employer]ILLER sedatives, limit anticholinergic medications when possible, frequent re-orientation, minimize use of restraints, open window shades during the day and close them at night -Would recommend the following medication changes/additions: We will not start any psychotropic medications at this time. The patient does not wish to start any until after his cardiac treatment/operation. -Psychiatry will sign off at this point, please contact with any questions. Thank you for this consult. 08/06/20 14:53
[2020-08-06] MEDS: clonazePAM 0.5 MG TAB PO SCH ×2 (16:16→20:21)
--- NOTE | 2020-08-06 19:51 | P.PN ---
Subjective This is a pleasant 55 years old male with past medical history of hypertension, COPD, alcohol abuse, paroxysmal atrial fibrillation Presents initially to [facility] with dyspnea for about one week duration. He was recently hospitalized on 07/04/2020 with atrial fibrillation and RVR and he left AMA at that time. This time presents also with chest pain. EKG showed sinus rhythm. This chest pain is described as burning sensation/10 in severity. With no dizziness or lightheadedness. No nausea or vomiting. Patient was started on IV heparin, cardiology team were consulted. Patient is a daily drinker and underwent WITHDRAWAL where he was monitored in the ICU for 2 days, one day he needed more than 24 mg of Ativan. He was severely agitated and he had to be restrained, however he improved within one day and he was more awake, although he needed significant monitoring and Ativan as needed per [facility] protocol. Patient underwent cardiac catheterization by Dr. Fried 2 days ago which showed extensive calcified right and left coronary system 50% distal left main and disease intermediate disease of the RCA. 2-D echocardiogram showing mild to moderate LVH, LV systolic function hyperdynamic with LVEF of 80%. Following catheterization patient did have significant withdrawal symptoms requiring higher doses of IV Ativan as above. However as he become more stabilized and awake cardiology team recommended inpatient evaluation by cardiothoracic surgery which is not available [facility] so it was transferred to my current hospital for further cardiothoracic surgery evaluation. 08/06/2020 Patient is fully awake and oriented, sitting in chair this morning. Complaining of from some chest pain and required increasing doses of Percocet. Probably we will try to decrease the Percocet dose tomorrow. MAPS was checked and patient is placed on Percocet 120 tablets over 30 [address] pain physician [address] Monroe. His blood pressure is slightly on the high side, today he is on metoprolol 25 mg. Hemodynamically stable. Cardiothoracic surgery on the case and he is undergoing workup with the plan for him to undergo cardiac cath with intravascular ultrasound on this coming Sunday after 2 days from now. Psychiatrist evaluated the patient and deemed him having capacity to make medical decision. This is because patient is frequently threatened to leave AMA.no overt signs or symptoms of depression. Suicidal ideation Objective - Vital Signs Vital signs: Vital Signs Temp 98.1 F 08/06/20 08:33 Pulse 94 08/06/20 08:33 Resp 20 08/06/20 08:33 BP 177/106 08/06/20 08:33 Pulse Ox 97 08/06/20 08:33 Intake & Output 08/05/20 08/06/20 08/06/20 18:59 06:59 18:59 Intake Total 240 20 Output Total 750 350 300 Balance -510 -350 -280 Weight 92.8 kg Intake: IV 20 Invasive Line 2 20 Oral 240 Output: Urine 750 350 300 Other: Voiding Method Urinal Urinal Urinal - Exam GENERAL: The patient is alert and oriented x3, not in any acute distress. Well developed, well nourished. HEENT: Pupils are round and equally reacting to light. EOMI. No scleral icterus. No conjunctival pallor. Normocephalic, atraumatic. No pharyngeal erythema. No thyromegaly. CARDIOVASCULAR: S1 and S2 present. No murmurs, rubs, or gallops. PULMONARY: Chest is clear to auscultation, no wheezing or crackles. ABDOMEN: Soft, nontender, nondistended, normoactive bowel sounds. No palpable organomegaly. MUSCULOSKELETAL: No joint swelling or deformity. EXTREMITIES: No cyanosis, clubbing, or pedal edema. NEUROLOGICAL: Gross neurological examination did not reveal any focal deficits. SKIN: No rashes. no petechiae. - Labs CBC & Chem 7: 08/05/20 07:09 08/05/20 07:09 Labs: Abnormal Lab Results - Last 24 Hours (Table) 08/05/20 Range/Units 10:21 Triglycerides 185.0 H (0.0-149.0) mg/dL HDL Cholesterol 39.0 L (40.0-60.0) mg/dL Microbiology - Last 24 Hours (Table) 08/05/20 12:17 Nasal Screen MRSA/MSSA - Preliminary Nasal Swab Assessment and Plan Plan: - unstable angina, CT angiogram of the chest negative for PE. Serial troponins normal. Cardiac catheterization showed extensive calcified right and left cor onary, 50% left main disease and RCA is intermediate disease. Continue with Metoprolol 25 mg daily, patient was started on Imdur. Cardiothoracic surgery on the case with the plan on cardiac cath with intravascular ultrasound on this coming Sunday with Dr. Espino surgery evaluation which were consulted. 2-D echo showing hyperdynamic LVEF 80% - Alcohol abuse undergoing alcohol withdrawal and delirium tremens: Resolved. Continue with CIWA protocol, thiamine. - Atrial fibrillation, currently heart rate is controlled, he is on subcutaneous heparin for now.He is also on baby aspirin - Depression, started on Cymbalta. Patient denies suicidal ideation. Psychiatrist evaluated the patient - Hypertension, which was uncontrolled during hospitalization. Continue with Norvasc, metoprolol, losartan, Imdur, hydralazine as needed for abscess SBP greater than 180 - Elevated d-dimer: CT angiogram negative for PE - Dyslipidemia: Continue with statin- - Generalized weakness, PT/OT evaluation - DVT prophylaxis: Subcutaneous heparin - GI prophylaxis: Protonix patient has capacity to make medical decision
[2020-08-06] MEDS: PRAVASTATIN SODIUM 80 MG TAB PO SCH (20:21)
[2020-08-07] MEDS: oxyCODONE-APAP 10-325MG 1 EACH TAB PO PRN ×6 (01:01→23:20)
[2020-08-07] MEDS: PANTOPRAZOLE 40 MG TABLET PO SCH (05:40)
[2020-08-07] MEDS: THIAMINE 100 MG TAB PO SCH ×2 (05:40→16:11)
[2020-08-07] MEDS: HEPARIN SODIUM,PORCINE/PF 5,000 UNIT/0.5 ML SYRINGE SQ SCH ×3 (05:41→20:34)
--- NOTE | 2020-08-07 08:52 | PN ---
PROGRESS NOTE Mr. Henderson, gentleman with unstable angina was seen and evaluated by Dr. Savage who performed cardiac cath at [facility]. He was seen by cardiac surgery, advised to have an intravascular ultrasound, which will be performed on Sunday. Vitals are stable. No JVD. S1, S2 heard normally. Clear lungs. Abdomen, lower extremity exam unchanged. The patient will continue current medications, perform intravascular ultrasound to check the left and if significant, will proceed with surgery. MMODL / IJN: [id number] /
[2020-08-07] MEDS: GABAPENTIN 300 MG CAP PO SCH ×3 (09:37→23:19)
[2020-08-07] MEDS: lisinopriL 10 MG TAB PO SCH (09:39)
[2020-08-07] MEDS: NICOTINE 21MG/24HR PATCH TRANSDERM SCH (09:39)
[2020-08-07] MEDS: ASPIRIN 81 MG PO SCH (09:39)
[2020-08-07] MEDS: METOPROLOL TARTRATE 25 MG TAB PO SCH ×2 (09:39→20:34)
[2020-08-07] MEDS: MUPIROCIN 2% OINT 22 GM TUBE NASAL SCH ×2 (09:44→20:34)
--- NOTE | 2020-08-07 10:29 | P.PN ---
Subjective Progress Note Date: 08/07/20 Principal diagnosis: Coronary artery disease with left main disease. Past medical history significant for hypertension, dyslipidemia, paroxysmal atrial fibrillation with rapid ventricular response, chronic ongoing EtOH abuse with drinking about a sixpack of beer a day or 4-5 vodkas per day, recent EtOH withdrawal currently on the CIWA protocol, elevated transaminase enzymes with his AST 142 and ALT 95, chronic ongoing tobacco abuse, anxiety, depression, COPD and history of coronary artery disease with his father having a coronary artery bypass grafting surgery in his 70s. The patient was seen in follow-up today 08/07/2020 at his bedside on the cardiac stepdown unit. Currently sitting up to his bedside edge, is awake, alert and oriented 3. Denies any complaints of pain or shortness of breath at this time. He reports he feels much improved today and feels more clear. Preoperative teaching has been reinforced with the patient and his questions were answered. A bedside FEV1 was repeated this morning which showed a per dictated value of 97% which was improved from his previous one of 51%. Remote telemetry showing normal sinus rhythm heart rate 94 BPM. Oxygen saturation are 95% on room air and he is achieving 2500 mL on his incentive spirometry. Objective - Vital Signs Vital signs: Vital Signs Temp 98.0 F 08/07/20 08:00 Pulse 82 08/07/20 08:00 Resp 18 08/07/20 08:00 BP 189/114 08/07/20 09:51 Pulse Ox 95 08/07/20 08:00 Intake & Output 08/06/20 08/07/20 08/07/20 18:59 06:59 18:59 Intake Total 890 480 Output Total 600 Balance 290 480 Weight 93.1 kg Intake: IV 30 Invasive Line 2 30 Oral 860 480 Output: Urine 600 Other: Voiding Method Urinal Urinal # Voids 1 - Exam CONSTITUTIONAL: Sitting up to the bedside edge on the cardiac stepdown unit, appears comfortable, cooperative, no apparent acute distress. HEENT: Neck is supple, no JVD, no lymphadenopathy. RESPIRATORY: Lungs sounds essentially clear throughout. Respirations are symmetrical and nonlabored. Currently on room air with oxygen saturations 95%. Achieving 2500 mL on his incentive spirometry. Strong cough. CARDIOVASCULAR: Regular rhythm and rate. S1 and S2 present, negative for S3, gallop or murmur. Palpable peripheral pulses bilaterally, no edema. No calf pain or tenderness noted. Remote telemetry showing normal sinus rhythm heart rate 94 BPM. GASTROINTESTINAL: Abdomen soft, nontender, nondistended. No organomegaly appreciated. Active bowel sounds present 4 quadrants. Tolerating diet. No guarding or rigidity. GENITOURINARY: Continues to void. INTEGUMENTARY: Skin is warm and dry with no evidence of clubbing or cyanosis. NEUROLOGIC: Cranial nerves II through XII intact. No focal deficits. MUSKULOSKELETAL: Able to move all extremities, strength equal bilaterally. PSYCHIATRIC: Alert and oriented to person place and time, flat affect, intact judgment and insight. - Labs CBC & Chem 7: 08/05/20 07:09 08/05/20 07:09 Labs: Microbiology - Last 24 Hours (Table) 08/05/20 12:17 Nasal Screen MRSA/MSSA - Final Nasal Swab Assessment and Plan Assessment: 1. Symptomatic multivessel coronary artery disease 2. Unstable angina 3. History of paroxysmal atrial fibrillation with rapid ventricular response, currently in normal sinus rhythm 4. Hypertension 5. Dyslipidemia 6. Ongoing chronic tobacco dependence 7. EtOH abuse with history of EtOH withdrawal, currently on the CIWA protocol 8. Chronic obstructive pulmonary disease, preoperative FEV1 97% of predicted value 9. History of noncompliance 10. Elevated transaminase enzymes, AST 142 and ALT 95 on admission 11. Hypomagnesemia, magnesium 1.7 12. History of depression 13. History of anxiety Plan: 1. Continue to maximize medical therapy with aspirin, statin, beta lurdes and SYLWIA inhibitor. 2. Continue to encourage use of his incentive spirometry 10 times every hour while awake. 3. CBC and CMP in the a.m. 4. Continue preoperative teaching, preoperative testing and progress. 5. Reinforced with the patient importance of risk modification including alcohol consumption and smoking cessation. 6. Continue thiamine, continue to monitor for delirium tremors. 7. Increase activity as tolerated. 8. Medical management per primary care service. 9. The patient will be scheduled for 08/09/2020 for a heart cath with IVUS. 10. More recommendations to follow based on patient's clinical course. Time with Patient: Greater than 30
[2020-08-07] MEDS: THIAMINE 100 MG/ML 2 ML VIAL IVP SCH (11:33)
--- NOTE | 2020-08-07 20:20 | PN ---
PROGRESS NOTE DATE OF SERVICE: 08/07/2020. HISTORY: Mr. Flowers had cardiac cath that was performed by Dr. Savage, which revealed a possible left main stenosis. The patient is going to have an intravascular ultrasound on Sunday. Doing well. No symptoms of chest pain. PHYSICAL EXAM: Vital signs stable. No JVD. S1, S2 heard normally. Lungs are clear. Abdomen and lower extremity exams unchanged. PLAN: Continue current medications, increase activity, and proceed with intravascular ultrasound that will be performed by Dr. Savage on Sunday. MMODL / IJN: [id number] /
[2020-08-07] MEDS ORDERED: clonazePAM 0.5 MG TAB PO PRN (20:25)
[2020-08-07] MEDS ORDERED: clonazePAM 0.5 MG TAB PO STA (20:26)
--- NOTE | 2020-08-07 20:28 | P.PN ---
Subjective This is a pleasant 55 years old male with past medical history of hypertension, COPD, alcohol abuse, paroxysmal atrial fibrillation Presents initially to [facility] with dyspnea for about one week duration. He was recently hospitalized on 07/04/2020 with atrial fibrillation and RVR and he left AMA at that time. This time presents also with chest pain. EKG showed sinus rhythm. This chest pain is described as burning sensation/10 in severity. With no dizziness or lightheadedness. No nausea or vomiting. Patient was started on IV heparin, cardiology team were consulted. Patient is a daily drinker and underwent WITHDRAWAL where he was monitored in the ICU for 2 days, one day he needed more than 24 mg of Ativan. He was severely agitated and he had to be restrained, however he improved within one day and he was more awake, although he needed significant monitoring and Ativan as needed per [facility] protocol. Patient underwent cardiac catheterization by Dr. Fried 2 days ago which showed extensive calcified right and left coronary system 50% distal left main and disease intermediate disease of the RCA. 2-D echocardiogram showing mild to moderate LVH, LV systolic function hyperdynamic with LVEF of 80%. Following catheterization patient did have significant withdrawal symptoms requiring higher doses of IV Ativan as above. However as he become more stabilized and awake cardiology team recommended inpatient evaluation by cardiothoracic surgery which is not available [facility] so it was transferred to my current hospital for further cardiothoracic surgery evaluation. 08/06/2020 Patient is fully awake and oriented, sitting in chair this morning. Complaining of from some chest pain and required increasing doses of Percocet. Probably we will try to decrease the Percocet dose tomorrow. MAPS was checked and patient is placed on Percocet 120 tablets over 30 [address] his pain physician [address] Monroe. His blood pressure is slightly on the high side, today he is on metoprolol 25 mg. Hemodynamically stable. Cardiothoracic surgery on the case and he is undergoing workup with the plan for him to undergo cardiac cath with intravascular ultrasound on this coming Sunday after 2 days from now. Psychiatrist evaluated the patient and deemed him having capacity to make medical decision. This is because patient is frequently threatened to leave AMA.no overt signs or symptoms of depression. Suicidal ideation 08/07/2020 Patient clinically doing well however still have some chest pain and back pain and increased the dose of Percocet from every 6 to every 4 hours. And because of that report his clonidine from twice a day to at bedtime as needed. Side effects and risks are explained for the patient including risk of respiratory depression and/or and he verbalized understanding. Patient is planned to go for cardiac cath and IVUS on this coming Sunday to evaluate for the blockage in his coronary artery before going for any vascular surgery. Other than that he denies any other complaints. Blood pressure on the high side and Norvasc 5 mg was added today. Case discussed with cardio thoracic surgery team and their input is appreciated Objective - Vital Signs Vital signs: Vital Signs Temp 97.9 F 08/07/20 15:32 Pulse 67 08/07/20 15:32 Resp 18 08/07/20 15:32 BP 161/109 08/07/20 15:32 Pulse Ox 97 08/07/20 15:32 Intake & Output 08/06/20 08/07/20 08/07/20 18:59 06:59 18:59 Intake Total 890 600 Output Total 600 400 Balance 290 200 Weight 93.1 kg Intake: IV 30 Invasive Line 2 30 Oral 860 600 Output: Urine 600 400 Other: Voiding Method Urinal Urinal # Voids 1 - Exam GENERAL: The patient is alert and oriented x3, not in any acute distress. Well developed, well nourished. HEENT: Pupils are round and equally reacting to light. EOMI. No scleral icterus. No conjunctival pallor. Normocephalic, atraumatic. No pharyngeal erythema. No thyromegaly. CARDIOVASCULAR: S1 and S2 present. No murmurs, rubs, or gallops. PULMONARY: Chest is clear to auscultation, no wheezing or crackles. ABDOMEN: Soft, nontender, nondistended, normoactive bowel sounds. No palpable organomegaly. MUSCULOSKELETAL: No joint swelling or deformity. EXTREMITIES: No cyanosis, clubbing, or pedal edema. NEUROLOGICAL: Gross neurological examination did not reveal any focal deficits. SKIN: No rashes. no petechiae. - Labs CBC & Chem 7: 08/05/20 07:09 08/05/20 07:09 Labs: Microbiology - Last 24 Hours (Table) 08/05/20 12:17 Nasal Screen MRSA/MSSA - Final Nasal Swab Assessment and Plan Plan: - unstable angina, CT angiogram of the chest negative for PE. Serial troponins normal. Cardiac catheterization showed extensive calcified right and left coronary, 50% left main disease and RCA is intermediate disease. Continue with Metoprolol 25 mg daily, patient was started on Imdur. At [facility] Cardiothoracic surgery on the case with the plan on cardiac cath with intravascular ultrasound on this coming Sunday with Dr. Espino surgery evaluation which were consulted. 2-D echo showing hyperdynamic LVEF 80% - Alcohol abuse undergoing alcohol withdrawal and delirium tremens: Resolved. Continue with CIWA protocol, thiamine. - Atrial fibrillation, currently heart rate is controlled, he is on subcutaneous heparin for now.He is also on baby aspirin - Depression, started on Cymbalta. Patient denies suicidal ideation. Psychiatrist evaluated the patient - Hypertension, which was uncontrolled during hospitalization. Continue with Norvasc, metoprolol, losartan, Imdur, hydralazine as needed for abscess SBP gre ater than 180 - Elevated d-dimer: CT angiogram negative for PE - Dyslipidemia: Continue with statin- - Generalized weakness, PT/OT evaluation - DVT prophylaxis: Subcutaneous heparin - GI prophylaxis: Protonix patient has capacity to make medical decision
[2020-08-07] MEDS: PRAVASTATIN SODIUM 80 MG TAB PO SCH (20:34)
[2020-08-07] MEDS: amLODIPine 5 MG TAB PO SCH (20:36)
[2020-08-07] MEDS ORDERED: clonazePAM 0.5 MG TAB PO SCH (21:00)
[2020-08-08] MEDS: oxyCODONE-APAP 10-325MG 1 EACH TAB PO PRN ×4 (03:17→18:18)
[2020-08-08] MEDS: HEPARIN SODIUM,PORCINE/PF 5,000 UNIT/0.5 ML SYRINGE SQ SCH ×3 (03:18→20:41)
[2020-08-08] MEDS: THIAMINE 100 MG TAB PO SCH ×2 (06:09→16:22)
[2020-08-08] MEDS: NITROGLYCERIN SL TABS 0.4 MG TAB SUBLINGUAL STA ×3 (06:26→14:17)
[2020-08-08 07:06] LABS: Basophils % (A) 1 %; Eosinophils # (A) 0.5 k/uL (0-0.7); Eosinophils % (A) 7 %; HCT 40.4 % (39.0-53.0); HGB 14.1 gm/dL (13.0-17.5); Lymphocytes % (A) 26 %; MCH 33.3 pg (25.0-35.0); MCV 95.2 fL (80.0-100.0); Mean Platelet Volume 7.5; Monocytes # (A) 0.5 k/uL (0-1.0); Monocytes % (A) 6 %; Neutrophils # (A) 4.6 k/uL (1.3-7.7); Neutrophils % (A) 60 %; Platelet Count 227 k/uL (150-450); RBC 4.25 m/uL (4.30-5.90); RDW 11.9 % (11.5-15.5); WBC 7.6 k/uL (3.8-10.6)
[2020-08-08 07:22] LABS: ALT 95 U/L (4-49); AST 65 U/L (17-59); African American GFR (CKD) >90 (>60 ml/min/1.73 sqM); Albumin 4.2 g/dL (3.5-5.0); Alkaline Phosphatase 75 U/L (38-126); Anion Gap 6 mmol/L; Blood Urea Nitrogen 18 mg/dL (9-20); Calcium 9.6 mg/dL (8.4-10.2); Carbon Dioxide 27 mmol/L (22-30); Chloride 103 mmol/L (98-107); Glucose 119 mg/dL (74-99); Non-African American GFR(CKD) >90 (>60 ml/min/1.73 sqM); Potassium 3.7 mmol/L (3.5-5.1); Sodium 136 mmol/L (137-145); Total Bilirubin 0.4 mg/dL (0.2-1.3); Total Protein 6.5 g/dL (6.3-8.2)
[2020-08-08] MEDS: GABAPENTIN 300 MG CAP PO SCH ×2 (07:34→16:22)
[2020-08-08] MEDS: amLODIPine 5 MG TAB PO SCH (07:55)
[2020-08-08] MEDS: ASPIRIN 81 MG PO SCH (07:55)
[2020-08-08] MEDS: lisinopriL 10 MG TAB PO SCH (07:55)
[2020-08-08] MEDS: METOPROLOL TARTRATE 25 MG TAB PO SCH ×2 (07:55→20:41)
[2020-08-08] MEDS: MUPIROCIN 2% OINT 22 GM TUBE NASAL SCH ×2 (07:56→20:42)
[2020-08-08] MEDS: NICOTINE 21MG/24HR PATCH TRANSDERM SCH (07:56)
[2020-08-08] MEDS: THIAMINE 100 MG/ML 2 ML VIAL IVP SCH (07:56)
[2020-08-08] MEDS: ALPRAZolam 0.5 MG TAB PO PRN ×2 (11:24→23:03)
--- NOTE | 2020-08-08 11:36 | P.PN ---
Subjective Progress Note Date: 08/08/20 Principal diagnosis: Coronary artery disease with left main disease. Past medical history significant for hypertension, dyslipidemia, paroxysmal atrial fibrillation with rapid ventricular response, chronic ongoing EtOH abuse with drinking about a sixpack of beer a day or 4-5 vodkas per day, recent EtOH withdrawal currently on the CIWA protocol, elevated transaminase enzymes with his AST 142 and ALT 95, chronic ongoing tobacco abuse, anxiety, depression, COPD and history of coronary artery disease with his father having a coronary artery bypass grafting surgery in his 70s. The patient was seen in follow-up today 08/08/2020 at his bedside on the cardiac stepdown unit. Currently he is up ambulating in his room, is awake, alert and oriented 3. Denies any complaints of shortness of breath although reports he had an episode of chest pain throughout the evening which was relieved by 2 nitroglycerin tablets. He states that his mind feels much clear on a daily basis and is ready to stop drinking and smoking. Preoperative teaching has been reinforced with the patient and his questions were answered. A bedside FEV1 was repeated yesterday 08/07/2020 which showed a predicted value of 97% which was improved from his previous FEV1 showing a predicted value of 51%. Remote telemetry showing normal sinus rhythm heart rate 77 BPM. Oxygen saturation are 98% on room air and he is achieving 2500 mL on his incentive spirometry. He remains afebrile the last 24 hours. He is scheduled for a cardiac catheterization with IVUS tomorrow 08/09/2020 to be performed by Dr. Savage from cardiology. Objective - Vital Signs Vital signs: Vital Signs Temp 97.9 F 08/08/20 07:26 Pulse 66 08/08/20 07:26 Resp 16 08/08/20 07:26 BP 173/107 08/08/20 07:26 Pulse Ox 98 08/08/20 07:26 Intake & Output 08/07/20 08/08/20 08/08/20 18:59 06:59 18:59 Intake Total 718 120 Output Total 400 100 Balance 318 20 Weight 106 kg Intake: Oral 718 120 Output: Urine 400 100 Other: Voiding Method Urinal # Voids 1 - Exam CONSTITUTIONAL: Up ambulating in his room on the cardiac stepdown unit, appears comfortable, cooperative, no apparent acute distress. HEENT: Neck is supple, no JVD, no lymphadenopathy. RESPIRATORY: Lungs sounds essentially clear throughout. Respirations are symmetrical and nonlabored. Currently on room air with oxygen saturations 98%. Achieving 2500 mL on his incentive spirometry. Strong cough. CARDIOVASCULAR: Regular rhythm and rate. S1 and S2 present, negative for S3, gallop or murmur. Palpable peripheral pulses bilaterally, no edema. No calf pain or tenderness noted. Remote telemetry showing normal sinus rhythm heart rate 77 BPM. GASTROINTESTINAL: Abdomen soft, nontender, nondistended. No organomegaly appreciated. Active bowel sounds present 4 quadrants. Tolerating diet. No guarding or rigidity. GENITOURINARY: Continues to void. INTEGUMENTARY: Skin is warm and dry with no evidence of clubbing or cyanosis. NEUROLOGIC: Cranial nerves II through XII intact. No focal deficits. MUSKULOSKELETAL: Able to move all extremities, strength equal bilaterally. PSYCHIATRIC: Alert and oriented to person place and time, flat affect, intact judgment and insight. - Labs CBC & Chem 7: 08/08/20 06:31 08/08/20 06:31 Labs: Abnormal Lab Results - Last 24 Hours (Table) 08/08/20 08/08/20 Range/Units 06:31 06:31 RBC 4.25 L (4.30-5.90) m/uL Sodium 136 L (137-145) mmol/L Glucose 119 H (74-99) mg/dL AST 65 H (17-59) U/L ALT 95 H (4-49) U/L Assessment and Plan Assessment: 1. Symptomatic multivessel coronary artery disease 2. Unstable angina 3. History of paroxysmal atrial fibrillation with rapid ventricular response, currently in normal sinus rhythm 4. Hypertension 5. Dyslipidemia 6. Ongoing chronic tobacco dependence 7. EtOH abuse with history of EtOH withdrawal, currently on the [facility] protocol 8. Chronic obstructive pulmonary disease, preoperative FEV1 97% of predicted value 9. History of noncompliance 10. Elevated transaminase enzymes, AST 142 and ALT 95 on admission 11. Hypomagnesemia, magnesium 1.7 12. History of depression 13. History of anxiety Plan: 1. Continue to maximize medical therapy with aspirin, statin, beta lurdes and SYLWIA inhibitor. 2. Continue to encourage use of his incentive spirometry 10 times every hour while awake. 3. CBC and CMP in the a.m. 4. Continue preoperative teaching, preoperative testing and progress. 5. Reinforced with the patient importance of risk modification including alcohol consumption and smoking cessation. 6. Continue thiamine, continue to monitor for delirium tremors. 7. Increase activity as tolerated. 8. Medical management per primary care service. 9. The patient is scheduled for 08/09/2020 for a heart cath with IVUS, per Dr. Savage. 10. More recommendations to follow based on patient's clinical course and following the IVUS. Time with Patient: Greater than 30
[2020-08-08 11:48] LABS: Glucose,Whole Blood 145 mg/dL (75-99)
--- NOTE | 2020-08-08 15:09 | PN ---
PROGRESS NOTE This gentleman is going for an intravascular ultrasound tomorrow. He has a moderate to severe left main disease. No symptoms. PHYSICAL EXAMINATION: Physical exam revealed vitals are stable, no JVD. S1, S2 heard normally. Lungs are clear. Abdomen is soft, nontender. Lower extremities reveal normal pulses. No edema. Central nervous system is normal. MMODL / IJN: [id number] /
[2020-08-08 16:43] LABS: Glucose,Whole Blood 121 mg/dL (75-99)
[2020-08-08 20:15] LABS: Glucose,Whole Blood 123 mg/dL (75-99)
[2020-08-08] MEDS: PRAVASTATIN SODIUM 80 MG TAB PO SCH (20:41)
--- NOTE | 2020-08-08 23:07 | P.PN ---
Subjective This is a pleasant 55 years old male with past medical history of hypertension, COPD, alcohol abuse, paroxysmal atrial fibrillation Presents initially to [facility] with dyspnea for about one week duration. He was recently hospitalized on 07/04/2020 with atrial fibrillation and RVR and he left AMA at that time. This time presents also with chest pain. EKG showed sinus rhythm. This chest pain is described as burning sensation/10 in severity. With no dizziness or lightheadedness. No nausea or vomiting. Patient was started on IV heparin, cardiology team were consulted. Patient is a daily drinker and underwent WITHDRAWAL where he was monitored in the ICU for 2 days, one day he needed more than 24 mg of Ativan. He was severely agitated and he had to be restrained, however he improved within one day and he was more awake, although he needed significant monitoring and Ativan as needed per [facility] protocol. Patient underwent cardiac catheterization by Dr. Fried 2 days ago which showed extensive calcified right and left coronary system 50% distal left main and disease intermediate disease of the RCA. 2-D echocardiogram showing mild to moderate LVH, LV systolic function hyperdynamic with LVEF of 80%. Following catheterization patient did have significant withdrawal symptoms requiring higher doses of IV Ativan as above. However as he become more stabilized and awake cardiology team recommended inpatient evaluation by cardiothoracic surgery which is not available [facility] so it was transferred to my current hospital for further cardiothoracic surgery evaluation. 08/06/2020 Patient is fully awake and oriented, sitting in chair this morning. Complaining of from some chest pain and required increasing doses of Percocet. Probably we will try to decrease the Percocet dose tomorrow. MAPS was checked and patient is placed on Percocet 120 tablets over 30 [address] Monroe. His blood pressure is slightly on the high side, today he is on metoprolol 25 mg. Hemodynamically stable. Cardiothoracic surgery on the case and he is undergoing workup with the plan for him to undergo cardiac cath with intravascular ultrasound on this coming Sunday after 2 days from now. Psychiatrist evaluated the patient and deemed him having capacity to make medical decision. This is because patient is frequently threatened to leave AMA.no overt signs or symptoms of depression. Suicidal ideation 08/07/2020 Patient clinically doing well however still have some chest pain and back pain and increased the dose of Percocet from every 6 to every 4 hours. And because of that report his clonidine from twice a day to at bedtime as needed. Side effects and risks are explained for the patient including risk of respiratory depression and/or and he verbalized understanding. Patient is planned to go for cardiac cath and IVUS on this coming Sunday to evaluate for the blockage in his coronary artery before going for any vascular surgery. Other than that he denies any other complaints. Blood pressure on the high side and Norvasc 5 mg was added today. Case discussed with cardio thoracic surgery team and their input is appreciated 08/08/2020 Patient is with significant coronary artery disease, he underwent cardiac cath at [facility] showing possible stenosis at the LAD, cardiovascular surge ry team were consulted, however prior to any surgical intervention they felt need to confirm stenosis, therefore the plan is to repeat cardiac cath tomorrow with intravascular ultrasound. Patient is aware of the plan and he agreeable We will lower his Percocet from every 4 hours down to every 6 hours which is his home dose. He feel anxious cell clumping stopped and started on Xanax. He is hemodynamically stable, labs are stable. Sugar controlled. He is on aspirin 81 mg, metoprolol 25 mg Cydanielleta is admitted for history of depression, however no suicidal ideation CTA is negative for PE. Ejection fraction 55-60%. He had severe alcohol withdrawal at [facility] however that completely resolved now. Continue with thiamine Objective - Vital Signs Vital signs: Vital Signs Temp 97.9 F 08/08/20 07:26 Pulse 68 08/08/20 11:45 Resp 18 08/08/20 11:45 BP 144/99 08/08/20 11:45 Pulse Ox 97 08/08/20 11:45 Intake & Output 08/07/20 08/08/20 08/08/20 18:59 06:59 18:59 Intake Total 718 120 Output Total 400 100 Balance 318 20 Weight 106 kg Intake: Oral 718 120 Output: Urine 400 100 Other: Voiding Method Urinal # Voids 1 - Exam GENERAL: The patient is alert and oriented x3, not in any acute distress. Well d eveloped, well nourished. HEENT: Pupils are round and equally reacting to light. EOMI. No scleral icterus. No conjunctival pallor. Normocephalic, atraumatic. No pharyngeal erythema. No thyromegaly. CARDIOVASCULAR: S1 and S2 present. No murmurs, rubs, or gallops. PULMONARY: Chest is clear to auscultation, no wheezing or crackles. ABDOMEN: Soft, nontender, nondistended, normoactive bowel sounds. No palpable organomegaly. MUSCULOSKELETAL: No joint swelling or deformity. EXTREMITIES: No cyanosis, clubbing, or pedal edema. NEUROLOGICAL: Gross neurological examination did not reveal any focal deficits. SKIN: No rashes. no petechiae. - Labs CBC & Chem 7: 08/08/20 06:08/08/20 06: Labs: Abnormal Lab Results - Last 24 Hours (Table) 08/08/20 08/08/20 08/08/20 Range/Units :: 11:46 RBC 4.25 L (4.30-5.90) m/uL Sodium 136 L (137-145) mmol/L Glucose 119 H (74-99) mg/dL POC Glucose (mg/dL) 145 H (75-99) mg/dL AST 65 H (17-59) U/L ALT 95 H (4-49) U/L Assessment and Plan Plan: - unstable angina, CT angiogram of the chest negative for PE. Serial troponins normal. Cardiac catheterization showed extensive calcified right and left coronary, 50% left main disease and RCA is intermediate disease. Continue with Metoprolol 25 mg daily, patient was started on Imdur. At [facility] Cardiothoracic surgery on the case with the plan on cardiac cath with intravascular ultrasound on this coming Sunday with Dr. Espino surgery evaluation which were consulted. 2-D echo showing hyperdynamic LVEF 80% - Alcohol abuse undergoing alcohol withdrawal and delirium tremens: Resolved. Continue with CIWA protocol, thiamine. - Atrial fibrillation, currently heart rate is controlled, he is on subcutaneous heparin for now.He is also on baby aspirin - Depression, started on Cymbalta. Patient denies suicidal ideation. Psychiatr ist evaluated the patient - Hypertension, which was uncontrolled during hospitalization. Continue with Norvasc, metoprolol, losartan, Imdur, hydralazine as needed for abscess SBP greater than 180 - Elevated d-dimer: CT angiogram negative for PE - Dyslipidemia: Continue with statin- - Generalized weakness, PT/OT evaluation - DVT prophylaxis: Subcutaneous heparin - GI prophylaxis: Protonix patient has capacity to make medical decision
[2020-08-09] MEDS: GABAPENTIN 300 MG CAP PO SCH ×3 (00:44→15:19)
[2020-08-09] MEDS: oxyCODONE-APAP 10-325MG 1 EACH TAB PO PRN ×5 (00:44→21:05)
[2020-08-09 06:38] LABS: Glucose,Whole Blood 111 mg/dL (75-99)
[2020-08-09] MEDS: THIAMINE 100 MG TAB PO SCH ×2 (06:41→16:49)
[2020-08-09] MEDS: HEPARIN SODIUM,PORCINE/PF 5,000 UNIT/0.5 ML SYRINGE SQ SCH ×3 (06:41→21:06)
[2020-08-09] MEDS: PANTOPRAZOLE 40 MG TABLET PO SCH (06:41)
[2020-08-09] MEDS: lisinopriL 10 MG TAB PO SCH (07:47)
[2020-08-09] MEDS: METOPROLOL TARTRATE 25 MG TAB PO SCH ×2 (07:47→21:05)
[2020-08-09] MEDS: ASPIRIN 81 MG PO SCH (07:47)
[2020-08-09] MEDS: amLODIPine 5 MG TAB PO SCH (07:47)
[2020-08-09] MEDS: NICOTINE 21MG/24HR PATCH TRANSDERM SCH (07:48)
[2020-08-09] MEDS: THIAMINE 100 MG/ML 2 ML VIAL IVP SCH (07:48)
[2020-08-09] MEDS: MUPIROCIN 2% OINT 22 GM TUBE NASAL SCH ×2 (07:48→21:07)
[2020-08-09] MEDS: ALPRAZolam 0.5 MG TAB PO PRN ×2 (07:51→15:19)
[2020-08-09] MEDS ORDERED: SODIUM CHLORIDE 0.9% 1,000 ML in EMPTY BAG 1 BAG IV ONE (09:01)
--- NOTE | 2020-08-09 09:22 | P.PN ---
Subjective Progress Note Date: 08/09/20 Principal diagnosis: Coronary artery disease with left main disease. Past medical history significant for hypertension, dyslipidemia, paroxysmal atrial fibrillation with rapid ventricular response, chronic ongoing EtOH abuse with drinking about a sixpack of beer a day or 4-5 vodkas per day, recent EtOH withdrawal currently on the CIWA protocol, elevated transaminase enzymes with his AST 142 and ALT 95, chronic ongoing tobacco abuse, anxiety, depression, COPD and history of coronary artery disease with his father having a coronary artery bypass grafting surgery in his 70s. The patient was seen in follow-up today 08/09/2020 at his bedside on the cardiac stepdown unit. The patient is currently up ambulating in his room, is awake, alert and oriented 3. He is scheduled for a heart catheterization with IVUS today to be completed by Dr. Savage. Oxygen saturations are 98% on room air and he is achieving 2500 mL on his incentive spirometry. Remote telemetry showing normal sinus rhythm heart rate 65 BPM. Preoperative teaching has been reinforced with the patient and his questions were answered the best my ability. Patient denies any complaints of pain or shortness of breath at this time. Objective - Vital Signs Vital signs: Vital Signs Temp 97.7 F 08/09/20 07:30 Pulse 61 08/09/20 07:30 Resp 18 08/09/20 07:30 BP 146/97 08/09/20 07:30 Pulse Ox 99 08/09/20 07:30 Intake & Output 08/08/20 08/09/20 08/09/20 18:59 06:59 18:59 Intake Total 360 10 Output Total 700 Balance -340 10 Weight 105.3 kg Intake: IV 10 Invasive Line 2 10 Oral 360 Output: Urine 700 Other: Voiding Method Toilet Urinal # Voids 1 - Exam CONSTITUTIONAL: Up ambulating in his room on the cardiac stepdown unit, appears comfortable, cooperative, no apparent acute distress. HEENT: Neck is supple, no JVD, no lymphadenopathy. RESPIRATORY: Lungs sounds essentially clear throughout. Respirations are symmetrical and nonlabored. Currently on room air with oxygen saturations 98%. Achieving 2500 mL on his incentive spirometry. Strong cough. CARDIOVASCULAR: Regular rhythm and rate. S1 and S2 present, negative for S3, gallop or murmur. Palpable peripheral pulses bilaterally, no edema. No calf pain or tenderness noted. Remote telemetry showing normal sinus rhythm heart rate 65 BPM. GASTROINTESTINAL: Abdomen soft, nontender, nondistended. No organomegaly appreciated. Active bowel sounds present 4 quadrants. Tolerating diet. No guarding or rigidity. GENITOURINARY: Continues to void. INTEGUMENTARY: Skin is warm and dry with no evidence of clubbing or cyanosis. NEUROLOGIC: Cranial nerves II through XII intact. No focal deficits. MUSKULOSKELETAL: Able to move all extremities, strength equal bilaterally. PSYCHIATRIC: Alert and oriented to person place and time, flat affect, intact judgment and insight. - Labs CBC & Chem 7: 08/08/20 06:31 08/08/20 06:31 Labs: Abnormal Lab Results - Last 24 Hours (Table) 08/08/20 08/08/20 08/08/20 Range/Units 11:46 16:42 20:05 POC Glucose (mg/dL) 145 H 121 H 123 H (75-99) mg/dL 08/09/20 Range/Units 06:31 POC Glucose (mg/dL) 111 H (75-99) mg/dL Assessment and Plan Assessment: 1. Symptomatic multivessel coronary artery disease 2. Unstable angina 3. History of paroxysmal atrial fibrillation with rapid ventricular response, currently in normal sinus rhythm 4. Hypertension 5. Dyslipidemia 6. Ongoing chronic tobacco dependence 7. EtOH abuse with history of EtOH withdrawal, currently on the CIWA protocol 8. Chronic obstructive pulmonary disease, preoperative FEV1 97% of predicted value 9. History of noncompliance 10. Elevated transaminase enzymes, AST 142 and ALT 95 on admission 11. Hypomagnesemia, magnesium 1.7 12. History of depression 13. History of anxiety Plan: 1. Continue to maximize medical therapy with aspirin, statin, beta lurdes and SYLWIA inhibitor. 2. Continue to encourage use of his incentive spirometry 10 times every hour while awake. 3. CBC and CMP in the a.m., results pending. 4. Continue preoperative teaching, preoperative testing and progress. 5. Reinforced with the patient importance of risk modification including alcohol consumption and smoking cessation. 6. Continue thiamine, continue to monitor for delirium tremors. 7. Increase activity as tolerated. Out of bed for all meals. 8. Medical management per primary care service. 9. The patient is scheduled today 08/09/2020 for a heart cath with IVUS, per Dr. Savage. 10. More recommendations to follow based on patient's clinical course and following the IVUS. Time with Patient: Greater than 30
[2020-08-09] MEDS ORDERED: IV FLUID CONTINUATION 1,000 ML IV ONE (12:05)
[2020-08-09] MEDS ORDERED: MIDAZOLAM 2 MG/2 ML VIAL IV ONE ×2 (12:25→12:36)
[2020-08-09] MEDS ORDERED: LIDOCAINE 1% INJ 10MG/ML (20 ML MDV) SQ ONE (12:28)
[2020-08-09] MEDS: VERAPAMIL SYRINGE (5 MG/10 ML) INTRAARTER ONE ×2 (12:33→12:53)
[2020-08-09] MEDS ORDERED: HEPARIN SODIUM 1,000 UN/ML (10ML VL) IV ONE (12:35)
[2020-08-09] MEDS ORDERED: IOPAMIDOL-370 125ML BTL INJ ONE (12:53)
[2020-08-09] MEDS ORDERED: RX INFO: IV CONTRAST WAS GIVEN 1 EACH MISC MISCELLANE PRN (12:56)
[2020-08-09] MEDS ORDERED: SODIUM CHLORIDE 0.9% 1,000 ML IV SCH (13:00)
[2020-08-09 16:52] LABS: Glucose,Whole Blood 144 mg/dL (75-99)
--- NOTE | 2020-08-09 17:45 | CC ---
CARDIAC CATHETERIZATION REPORT DATE OF SERVICE: August 09, 2020. PERFORMING PHYSICIAN: Sal Savage MD. PROCEDURE PERFORMED: Intravascular ultrasound (IVUS) of the LAD and left main coronary artery. INDICATION: This is a 55-year-old gentleman who was admitted initially to [facility] with chest discomfort and continues to have ongoing chest discomfort and EKG changes concerning for ischemia. Because of that, a heart catheterization was advised. The heart catheterization revealed intermediate to severe lesion involving the left main coronary artery and proximal LAD. Because of that, an intravascular ultrasound was advised. APPROACH: Right radial artery. COMPLICATION: None. LEVEL OF SEDATION: Moderate with sedation length of 27 minutes. PROCEDURE DESCRIPTION: After obtaining informed consent, the patient was brought to the cardiac [employer]. The right radial artery was cannulated using micropuncture technique and a micropuncture wire passed easily. Then I placed a 6-Hungarian sheath in the right radial artery. After that, I gave the patient 2 mg of verapamil IA and 10,000 units of heparin IV. After that I did engage the left main using JL3.5 guiding catheter. I did wire the LAD using a run-through wire. After that, I did intravascular ultrasound (IVUS) of the left main as well as LAD using manual pullback. The procedure was completed without any complication. FINDING: The intravascular ultrasound IVUS was performed using manual pullback and revealed a minimal luminal area of 9.3 mm2 with an area stenosis of 45%. CONCLUSION: 1. Intermediate disease involving the LAD with a minimal luminal area of 9.2 mm2 and area stenosis of 45%. 2. This information will be shared with the surgeon on the case as well. MMODL / IJN: [id number] / [id number]
[2020-08-09 20:18] LABS: Glucose,Whole Blood 107 mg/dL (75-99)
[2020-08-09] MEDS: PRAVASTATIN SODIUM 80 MG TAB PO SCH (21:05)
--- NOTE | 2020-08-09 23:37 | P.PN ---
Subjective Progress Note Date: 08/09/20 Principal diagnosis: Unstable angina This is a pleasant 55 years old male with past medical history of hypertension, COPD, alcohol abuse, paroxysmal atrial fibrillation Presents initially to [facility] with dyspnea for about one week duration. He was recently hospitalized on 07/04/2020 with atrial fibrillation and RVR and he left AMA at that time. This time presents also with chest pain. EKG showed sinus rhythm. This chest pain is described as burning sensation/10 in severity. With no dizziness or lightheadedness. No nausea or vomiting. Patient was started on IV heparin, cardiology team were consulted. Patient is a daily drinker and underwent WITHDRAWAL where he was monitored in the ICU for 2 days, one day he needed more than 24 mg of Ativan. He was severely agitated and he had to be restrained, however he improved within one day and he was more awake, although he needed significant monitoring and Ativan as needed per [facility] protocol. Patient underwent cardiac catheterization by Dr. Fried 2 days ago which showed extensive calcified right and left coronary system 50% distal left main and disease intermediate disease of the RCA. 2-D echocardiogram showing mild to moderate LVH, LV systolic function hyperdynamic with LVEF of 80%. Following catheterization patient did have significant withdrawal symptoms requiring higher doses of IV Ativan as above. However as he become more stabilized and awake cardiology team recommended inpatient evaluation by cardiothoracic surgery which is not available [facility] so it was transferred to my current hospital for further cardiothoracic surgery evaluation. 08/06/2020 Patient is fully awake and oriented, sitting in chair this morning. Complaining of from some chest pain and required increasing doses of Percocet. Probably we will try to decrease the Percocet dose tomorrow. MAPS was checked and patient is placed on Percocet 120 tablets over 30 [address] his pain physician [address] Monroe. His blood pressure is slightly on the high side, today he is on metoprolol 25 mg. Hemodynamically stable. Cardiothoracic surgery on the case and he is undergoing workup with the plan for him to undergo cardiac cath with intravascular ultrasound on this coming Sunday after 2 days from now. Psychiatrist evaluated the patient and deemed him having capacity to make medical decision. This is because patient is frequently threatened to leave AMA.no overt signs or symptoms of depression. Suicidal ideation 08/07/2020 Patient clinically doing well however still have some chest pain and back pain and increased the dose of Percocet from every 6 to every 4 hours. And because of that report his clonidine from twice a day to at bedtime as needed. Side effects and risks are explained for the patient including risk of respiratory depression and/or and he verbalized understanding. Patient is planned to go for cardiac cath and IVUS on this coming Sunday to evaluate for the blockage in his coronary artery before going for any vascular surgery. Other than that he denies any other complaints. Blood pressure on the high side and Norvasc 5 mg was added today. Case discussed with cardio thoracic surgery team and their input is appreciated 08/08/2020 Patient is with significant coronary artery disease, he underwent cardiac cath at [facility] showing possible stenosis at the LAD, cardiovascular surgery team were consulted, however prior to any surgical intervention they felt need to confirm stenosis, therefore the plan is to repeat cardiac cath tomorrow with intravascular ultrasound. Patient is aware of the plan and he agreeable We will lower his Percocet from every 4 hours down to every 6 hours which is his home dose. He feel anxious cell clumping stopped and started on Xanax. He is hemodynamically stable, labs are stable. Sugar controlled. He is on aspirin 81 mg, metoprolol 25 mg Cyjosafatalta is admitted for history of depression, however no suicidal ideation CTA is negative for PE. Ejection fraction 55-60%. He had severe alcohol withdrawal at [facility] however that completely resolved now. Continue with thiamine 08/09/2020. Patient is currently resting in the bed comfortably. Able to ambulate to the bathroom without much shortness of breath. No complaints of chest pain. No nausea vomiting abdominal pain or diarrhea. Heart rate is controlled and currently maintaining sinus rhythm. Patient is scheduled for cardiac catheter with intravascular ultrasound today. Patient has been afebrile. No headache or dizziness or lightheadedness. Patient is also being monitored for alcohol withdrawal symptoms. Active Medications Generic Name Dose Route Start Last Admin Trade Name Freq PRN Reason Stop Dose Admin Acetaminophen 650 mg 08/04/20 18:29 Acetaminophen Tab 325 Mg Tab PO Q6HR PRN Fever and/ or Pain Alprazolam 0.5 mg 08/08/20 10:19 08/09/20 15:19 Alprazolam 0.5 Mg Tab PO 0.5 mg BID PRN Administration Anxiety Amlodipine Besylate 5 mg 08/07/20 20:30 08/09/20 07:47 Amlodipine 5 Mg Tab PO 5 mg DAILY TAYLOR Administration Aspirin 81 mg 08/05/20 09:00 08/09/20 07:47 Aspirin 81 Mg PO 81 mg DAILY TAYLOR Administration Diphenhydramine HCl 25 mg 08/05/20 15:52 08/05/20 20:34 Diphenhydramine 25 Mg Cap PO 25 mg HS PRN Administration Insomnia Gabapentin 300 mg 08/05/20 16:00 08/09/20 15:19 Gabapentin 300 Mg Cap PO 300 mg Q8H TAYLOR Administration Heparin Sodium (Porcine) 5,000 unit 08/04/20 20:00 08/09/20 21:06 Heparin Sodium,Porcine/Pf 5,000 Unit/0.5 Ml Syringe SQ 5,000 unit Q8H TAYLOR Administration Heparin Sodium (Porcine) 10, 1,001 mls @ 999 mls/hr 08/10/20 07:00 000 unit/ Sodium Chloride IRRIGATION 08/10/20 23:00 ONCE PRN INTRA-OP Heparin Sodium (Porcine) 2,500 250.5 mls @ 250 mls/hr 08/10/20 07:00 unit/ Sodium Chloride IRRIGATION 08/10/20 23:00 ONCE PRN INTRA-OP Lisinopril 10 mg 08/04/20 18:30 08/09/20 07:47 Lisinopril 10 Mg Tab PO 10 mg DAILY TAYLOR Administration Metoprolol Tartrate 25 mg 08/05/20 09:45 08/09/20 21:05 Metoprolol Tartrate 25 Mg Tab PO 25 mg BID TAYLOR Administration Miscellaneous Information 1 each 08/09/20 12:56 Rx Info: Iv Contrast Was Given 1 Each Misc MISCELLANE 08/11/20 12:56 DAILY PRN Per Protocol Mupirocin 1 applic 08/05/20 21:00 08/09/20 21:07 Mupirocin 2% Oint 22 Gm Tube NASAL 08/10/20 21:01 Not Given BID [facility] Nicotine 1 patch 08/05/20 09:00 08/09/20 07:48 Nicotine 21mg/24hr Patch TRANSDERM Not Given DAILY [facility] Ondansetron HCl 4 mg 08/04/20 18:27 Ondansetron 4 Mg/2 Ml Vial IVP Q6HR PRN Nausea And Vomiting Oxycodone/Acetaminophen 1 each 08/06/20 08:02 08/06/20 09:30 Oxycodone-Apap 5-325mg 1 Each Tab PO 1 each ONCE PRN Administration Breakthrough Pain Oxycodone/Acetaminophen 1 each 08/09/20 16:55 08/09/20 21:05 Oxycodone-Apap 10-325mg 1 Each Tab PO 1 each Q4H PRN Administration Pain Pantoprazole Sodium 40 mg 08/04/20 18:30 08/09/20 06:41 Pantoprazole 40 Mg Tablet PO 40 mg [id number] TAYLOR Administration Pravastatin Sodium 80 mg 08/04/20 21:00 08/09/20 21:05 Pravastatin Sodium 80 Mg Tab PO 80 mg HS TAYLOR Administration Thiamine HCl 100 mg 08/04/20 20:45 08/09/20 07:48 Thiamine 100 Mg/Ml 2 Ml Vial IVP 100 mg DAILY TAYLOR Administration Thiamine HCl 100 mg 08/05/20 07:30 08/09/20 16:49 Thiamine 100 Mg Tab PO 100 mg BID-W/MEALS TAYLOR Administration Objective - Vital Signs Vital signs: Vital Signs Temp 97.2 F L 08/09/20 20:00 Pulse 70 08/09/20 20:00 Resp 18 08/09/20 20:00 BP 141/73 08/09/20 20:00 Pulse Ox 96 08/09/20 20:00 Intake & Output 08/09/20 08/09/20 08/10/20 06:59 18:59 06:59 Intake Total 10 100 Balance 10 100 Weight 105.3 kg Intake: IV 10 100 Invasive Line 2 10 Other: Voiding Method Toilet Toilet Urinal Urinal # Voids 1 3 - Exam GENERAL: The patient is alert and oriented x3, not in any acute distress. Well developed, well nourished. HEENT: Pupils are round and equally reacting to light. EOMI. No scleral icterus. No conjunctival pallor. Normocephalic, atraumatic. No pharyngeal erythema. No thyromegaly. CARDIOVASCULAR: S1 and S2 present. No murmurs, rubs, or gallops. PULMONARY: Chest is clear to auscultation, no wheezing or crackles. ABDOMEN: Soft, nontender, nondistended, normoactive bowel sounds. No palpable organomegaly. MUSCULOSKELETAL: No joint swelling or deformity. EXTREMITIES: No cyanosis, clubbing, or pedal edema. NEUROLOGICAL: Gross neurological examination did not reveal any focal deficits. SKIN: No rashes. no petechiae. - Labs CBC & Chem 7: 08/08/20 06:31 08/08/20 06:31 Labs: Abnormal Lab Results - Last 24 Hours (Table) 08/09/20 08/09/20 08/09/20 Range/Units 06:31 16:50 20:16 POC Glucose (mg/dL) 111 H 144 H 107 H (75-99) mg/dL Assessment and Plan Assessment: - unstable angina, CT angiogram of the chest negative for PE. Serial troponins normal. Cardiac catheterization showed extensive calcified right and left coronary, 50% left main disease and RCA is intermediate disease. Continue with Metoprolol 25 mg daily, patient was started on Imdur and Norvasc. Cardiothoracic surgery on the case with the plan on cardiac cath with intravascular ultrasound today with Dr. Dr. Savage, CT surgery evaluation. 2-D echo showing hyperdynamic LVEF 80% - Symptomatic multivessel coronary artery disease - Alcohol abuse undergoing alcohol withdrawal and delirium tremens: Resolved. Continue with CIWA protocol, thiamine. - Paroxysmal Atrial fibrillation, currently heart rate is controlled, he is on subcutaneous heparin for now.He is also on baby aspirin - Depression, started on Cymbalta. Patient denies suicidal ideation. Psychiatrist evaluated the patient - Hypertension, which was uncontrolled during hospitalization. Continue with Norvasc, metoprolol, losartan, Imdur, hydralazine as needed for abscess SBP greater than 180 - Elevated d-dimer: CT angiogram negative for PE - Dyslipidemia: Continue with statin- - Generalized weakness, PT/OT evaluation - DVT prophylaxis: Subcutaneous heparin - GI prophylaxis: Protonix patient has capacity to make medical decision Time with Patient: Greater than 30
[2020-08-10 00:31] VITALS: RESP 18
[2020-08-10] MEDS: oxyCODONE-APAP 10-325MG 1 EACH TAB PO PRN ×4 (00:42→13:57)
[2020-08-10] MEDS: GABAPENTIN 300 MG CAP PO SCH ×2 (00:42→09:04)
[2020-08-10] MEDS: HEPARIN SODIUM,PORCINE/PF 5,000 UNIT/0.5 ML SYRINGE SQ SCH ×2 (05:48→11:21)
[2020-08-10] MEDS: PANTOPRAZOLE 40 MG TABLET PO SCH (06:14)
[2020-08-10] MEDS: THIAMINE 100 MG TAB PO SCH (06:14)
[2020-08-10 06:17] LABS: Glucose,Whole Blood 109 mg/dL (75-99)
[2020-08-10] MEDS ORDERED: HEPARIN SODIUM,PORCINE 2,500 UNIT in SODIUM CHLORIDE 0.9% 250 ML IRRIGATION PRN (07:00)
[2020-08-10] MEDS ORDERED: HEPARIN SODIUM,PORCINE 10,000 UNIT in SODIUM CHLORIDE 0.9% 1,000 ML IRRIGATION PRN (07:00)
[2020-08-10 08:10] LABS: Basophils # (A) 0.1 k/uL (0-0.2); Basophils % (A) 1 %; Eosinophils # (A) 0.6 k/uL (0-0.7); Eosinophils % (A) 6 %; HCT 40.8 % (39.0-53.0); Lymphocytes # (A) 2.1 k/uL (1.0-4.8); Lymphocytes % (A) 20 %; MCH 33.1 pg (25.0-35.0); MCHC 34.3 g/dL (31.0-37.0); MCV 96.4 fL (80.0-100.0); Mean Platelet Volume 7.7; Monocytes # (A) 0.8 k/uL (0-1.0); Monocytes % (A) 8 %; Neutrophils # (A) 6.6 k/uL (1.3-7.7); Neutrophils % (A) 65 %; Platelet Count 278 k/uL (150-450); RBC 4.23 m/uL (4.30-5.90); WBC 10.3 k/uL (3.8-10.6)
[2020-08-10 08:33] LABS: African American GFR (CKD) >90 (>60 ml/min/1.73 sqM); Anion Gap 9 mmol/L; Blood Urea Nitrogen 18 mg/dL (9-20); Calcium 10.3 mg/dL (8.4-10.2); Carbon Dioxide 26 mmol/L (22-30); Chloride 104 mmol/L (98-107); Glucose 104 mg/dL (74-99); Non-African American GFR(CKD) >90 (>60 ml/min/1.73 sqM); Potassium 4.4 mmol/L (3.5-5.1); Sodium 139 mmol/L (137-145)
[2020-08-10 09:03] VITALS: TEMP 98.2
[2020-08-10] MEDS: amLODIPine 5 MG TAB PO SCH (09:04)
[2020-08-10] MEDS: lisinopriL 10 MG TAB PO SCH (09:05)
[2020-08-10] MEDS: THIAMINE 100 MG/ML 2 ML VIAL IVP SCH (09:05)
[2020-08-10] MEDS: MUPIROCIN 2% OINT 22 GM TUBE NASAL SCH ×2 (09:05→09:10)
[2020-08-10] MEDS: ASPIRIN 81 MG PO SCH (09:05)
[2020-08-10] MEDS: METOPROLOL TARTRATE 25 MG TAB PO SCH (09:05)
[2020-08-10] MEDS: ALPRAZolam 0.5 MG TAB PO PRN ×2 (09:06→13:57)
[2020-08-10] MEDS: NICOTINE 21MG/24HR PATCH TRANSDERM SCH (09:06)
[2020-08-10] MEDS ORDERED: ISOSORBIDE MONONITRATE ER 30 MG TAB.ER.24H PO SCH (09:30)
[2020-08-10 11:20] VITALS: BP 143/86; PULSE 67
[2020-08-10 11:44] LABS: Glucose,Whole Blood 119 mg/dL (75-99)
--- NOTE | 2020-08-10 12:53 | P.PN ---
Subjective Progress Note Date: 08/10/20 Principal diagnosis: Coronary artery disease with left main disease. Past medical history significant for hypertension, dyslipidemia, paroxysmal atrial fibrillation with rapid ventricular response, chronic ongoing EtOH abuse with drinking about a sixpack of beer a day or 4-5 vodkas per day, recent EtOH withdrawal currently on the [facility]WA protocol, elevated transaminase enzymes with his AST 142 and ALT 95, chronic ongoing tobacco abuse, anxiety, depression, COPD and history of coronary artery disease with his father having a coronary artery bypass grafting surgery in his 70s. The patient was seen in follow-up today 08/10/2020 at his bedside on the cardiac stepdown unit. The patient is currently sitting up to the bedside recliner, is awake, alert and oriented 3. He denies any complaints of pain or shortness of breath at this time. The patient underwent in intravascular ultrasound of the LAD and left main coronary artery yesterday performed by Dr. Savage from [facility]. The results of the intravascular ultrasound showed intermediate to severe disease involving the LAD with minimal luminal area of 9.2 mm and an area of stenosis of 45%. The results of the intravascular ultrasound were discussed with the patient with conservative measures for now with maximized medical therapy. If his symptoms were to progress further considerations for myocardial revascularization surgery would be discussed with the patient. It was also discussed with the patient the importance of risk modification including smoking and alcohol cessation. Objective - Vital Signs Vital signs: Vital Signs Temp 98.2 F 08/10/20 08:00 Pulse 67 08/10/20 11:17 Resp 18 08/10/20 11:17 BP 143/86 08/10/20 11:17 Pulse Ox 100 08/10/20 11:17 Intake & Output 08/09/20 08/10/20 08/10/20 18:59 06:59 18:59 Intake Total 100 118 Balance 100 118 Weight 95.1 kg Intake: IV 100 Oral 118 Other: Voiding Method Toilet Urinal # Voids 3 1 2 - Exam CONSTITUTIONAL: Sitting up to the bedside recliner on the cardiac stepdown unit, appears comfortable, cooperative, no apparent acute distress. HEENT: Neck is supple, no JVD, no lymphadenopathy. RESPIRATORY: Lungs sounds essentially clear throughout. Respirations are symmetrical and nonlabored. Currently on room air with oxygen saturations 97%. Achieving 2500 mL on his incentive spirometry. Strong cough. CARDIOVASCULAR: Regular rhythm and rate. S1 and S2 present, negative for S3, gallop or murmur. Palpable peripheral pulses bilaterally, no edema. No calf pain or tenderness noted. Remote telemetry showing normal sinus rhythm heart rate 67 BPM. GASTROINTESTINAL: Abdomen soft, nontender, nondistended. No organomegaly appreciated. Active bowel sounds present 4 quadrants. Tolerating diet. No guarding or rigidity. GENITOURINARY: Continues to void. INTEGUMENTARY: Skin is warm and dry with no evidence of clubbing or cyanosis. NEUROLOGIC: Cranial nerves II through XII intact. No focal deficits. MUSKULOSKELETAL: Able to move all extremities, strength equal bilaterally. PSYCHIATRIC: Alert and oriented to person place and time, flat affect, intact judgment and insight. - Labs CBC & Chem 7: 08/10/20 07:31 08/10/20 07:31 Labs: Abnormal Lab Results - Last 24 Hours (Table) 08/09/20 08/09/20 08/10/20 Range/Units 16:50 20:16 06:15 RBC (4.30-5.90) m/uL Glucose (74-99) mg/dL POC Glucose (mg/dL) 144 H 107 H 109 H (75-99) mg/dL Calcium (8.4-10.2) mg/dL 08/10/20 08/10/20 08/10/20 Range/Units 07:31 07:31 11:43 RBC 4.23 L (4.30-5.90) m/uL Glucose 104 H (74-99) mg/dL POC Glucose (mg/dL) 119 H (75-99) mg/dL Calcium 10.3 H (8.4-10.2) mg/dL Assessment and Plan Assessment: 1. Symptomatic multivessel coronary artery disease 2. Unstable angina 3. History of paroxysmal atrial fibrillation with rapid ventricular response, currently in normal sinus rhythm 4. Hypertension 5. Dyslipidemia 6. Ongoing chronic tobacco dependence 7. EtOH abuse with history of EtOH withdrawal, currently on the [facility] protocol 8. Chronic obstructive pulmonary disease, preoperative FEV1 97% of predicted value 9. History of noncompliance 10. Elevated transaminase enzymes, AST 142 and ALT 95 on admission 11. Hypomagnesemia, magnesium 1.7 12. History of depression 13. History of anxiety Plan: 1. Continue to maximize medical therapy with aspirin, statin, beta lurdes and SYLWIA inhibitor. 2. Continue to encourage use of his incentive spirometry 10 times every hour while awake. 3. Reinforced with the patient importance of risk modification including alcohol consumption and smoking cessation. 6. Medical management per primary care service. 7. We will continue to follow the patient on an as-needed basis, please call for any further questions. Time with Patient: Greater than 30
--- NOTE | 2020-08-10 13:26 | P.PN ---
Subjective Patient underwent intravascular ultrasound yesterday with Dr. Fried. LAD lesion appears to be about 45%. Maximum medical therapy recommended. Patient is seen and examined sitting up in bed in no acute distress. Blood pressure 143/86 heart rate 67 afebrile and maintaining oxygen saturation on room air. X-ray data reviewed, WBC 10.3, hemoglobin 14, platelets 278, sodium 139, potassium 4.4, creatinine 0.95. GENERAL: Well-appearing, well-nourished and in no acute distress. NECK: Supple without JVD or thyromegaly. LUNGS: Breath sounds clear to auscultation bilaterally. Respiration equal and unlabored. No wheezes, rales or rhonchi. HEART: Regular rate and rhythm without murmurs, rubs or gallops. S1 and S2 heard. EXTREMITIES: Normal range of motion, no edema. No clubbing or cyanosis. Peripheral pulses intact. ASSESSMENT Unstable angina Multivessel coronary artery disease Hypertension Dyslipidemia Alcohol abuse Chronic nicotine dependence COPD Medical noncompliance PLAN Add long acting nitrates to his daily regimen. Stable for discharge from a cardiac perspective. Follow up with Dr. Savage upon discharge. Nurse Practitioner note has been reviewed, I agree with a documented findings and plan of care. Patient was seen and examined. Objective - Vital Signs Vital signs: Vital Signs Temp 98.2 F 08/10/20 08:00 Pulse 67 08/10/20 11:17 Resp 18 08/10/20 11:17 BP 143/86 08/10/20 11:17 Pulse Ox 100 08/10/20 11:17 Intake & Output 08/09/20 08/10/20 08/10/20 18:59 06:59 18:59 Intake Total 100 118 Balance 100 118 Weight 95.1 kg Intake: IV 100 Oral 118 Other: Voiding Method Toilet Urinal # Voids 3 1 2 - Labs CBC & Chem 7: 08/10/20 07:31 08/10/20 07:31 Labs: Abnormal Lab Results - Last 24 Hours (Table) 08/09/20 08/09/20 08/10/20 Range/Units 16:50 20:16 06:15 RBC (4.30-5.90) m/uL Glucose (74-99) mg/dL POC Glucose (mg/dL) 144 H 107 H 109 H (75-99) mg/dL Calcium (8.4-10.2) mg/dL 08/10/20 08/10/20 08/10/20 Range/Units 07:31 07:31 11:43 RBC 4.23 L (4.30-5.90) m/uL Glucose 104 H (74-99) mg/dL POC Glucose (mg/dL) 119 H (75-99) mg/dL Calcium 10.3 H (8.4-10.2) mg/dL
[2020-08-10 14:29] VITALS: BMI 23.0
--- NOTE | 2020-08-11 13:19 | P.ARTDOP ---
Arterial Doppler Bilateral radial artery study: Reason for study: Preop CABG Date of study: 08/05/2020 Findings: Doppler assessment shows no significant right to left or segmental gradient. Digital plethysmography with radial artery compression shows no significant pressure changes. Right radial: proximal 4 x 3.8 mm, mid 3.7 x 4.6 mm, 3.5 x 3.7 mm. Left radial 4.0 x 3.5 mm proximal, 3.4 x 3.2 mm mid, 2.9 x 2.9 mm distal. Impression: Both radials appear to be usable.
--- NOTE | 2020-08-11 13:20 | P.ARTDOP ---
Arterial Doppler LOWER EXTREMITY ARTERIAL DOPPLER: DATE OF SERVICE: 08/05/2020 Reason for study: Preop CABG. Doppler waveforms: Multiphasic bilaterally throughout. Pulse volume recording: []. Pressure gradients: None. Ankle-brachial indices: Greater than 1 bilaterally. Toe brachial indices: Greater than 1 bilaterally Impression: Normal study.
--- NOTE | 2020-08-11 13:22 | P.VSCSTY ---
Greater Saphenous Vein Mapping This is bilateral lower extremity greater saphenous vein mapping. Date of service: 08/05/2020 Vein quality and ultrasound appearance: We see no intraluminal thrombus or obvious wall changes. Vein size in mm groin right : 5.6 x 5.8 groin left: 7.2 x 7.6 High thigh right: 4.4 x 4.4 high thigh left: 5.1 x 5.1 Mid thigh right: 3.1 x 3.2 mid thigh left: 4.4 x 4.4 Above-knee right: 3.5 x 4.2 above-knee left: 4.3 x 4.0 Below knee right: 2.8 x 3.3 below-knee left: 3.8 x 3.7 Mid calf right: 2.8 x 3.0 mid calf left: 3.2 x 3.2 Ankle right: 3.0 x 4.1 ankle left: 3.5 x 3.7 Impression: Usable bilateral greater saphenous vein.
== END 2020-08-10 14:30 | disposition home or self-care (01) | DRG 287 ==
LOC: 3SCARD 13:02
PROVIDERS: ADMIT Internal Medicine; ATTEND Internal Medicine
PROC: B54DZZZ Ultrasonography of Bilateral Lower Extremity Veins (ICD-10-PCS; 2020-08-05)
PROC: B34KZZZ Ultrasonography of Bilateral Upper Extremity Arteries (ICD-10-PCS; 2020-08-05)
PROC: B241ZZ3 Ultrasonography of Multiple Coronary Arteries, Intravascular (ICD-10-PCS; principal; 2020-08-09 12:15)
PROC: B2111ZZ Fluoroscopy of Multiple Coronary Arteries using Low Osmolar Contrast (ICD-10-PCS; principal; 2020-08-09 12:15)
DX: I25.110 Atherosclerotic heart disease of native coronary artery with unstable angina pectoris (principal); F10.231 Alcohol dependence with withdrawal delirium; I11.9 Hypertensive heart disease without heart failure; I48.0 Paroxysmal atrial fibrillation; J44.9 Chronic obstructive pulmonary disease, unspecified; E78.5 Hyperlipidemia, unspecified; E83.42 Hypomagnesemia; I25.84 Coronary atherosclerosis due to calcified coronary lesion; I08.8 Other rheumatic multiple valve diseases; R74.01 Elevation of levels of liver transaminase levels; F32.9 Major depressive disorder, single episode, unspecified; G47.00 Insomnia, unspecified; F41.9 Anxiety disorder, unspecified; G89.29 Other chronic pain; M54.9 Dorsalgia, unspecified; M54.2 Cervicalgia; F17.210 Nicotine dependence, cigarettes, uncomplicated; Z71.6 Tobacco abuse counseling; Z22.321 Carrier or suspected carrier of Methicillin susceptible Staphylococcus aureus; Z22.322 Carrier or suspected carrier of Methicillin resistant Staphylococcus aureus; Z91.19 Patient's noncompliance with other medical treatment and regimen; Z79.82 Long term (current) use of aspirin; Z79.899 Other long term (current) drug therapy; Z60.2 Problems related to living alone; Z56.0 Unemployment, unspecified; Z87.39 Personal history of other diseases of the musculoskeletal system and connective tissue; Z82.49 Family history of ischemic heart disease and other diseases of the circulatory system; Z80.41 Family history of malignant neoplasm of ovary
CPT/HCPCS: 80048; 80053; 80061; 80074; 81003; 83036; 83735; 84439; 84443; 85025; 85610; 87070; 92978; 93454; 93880; 93922; 93923; 93930; 93970; 94150

== ENCOUNTER 2020-08-13 14:41 | Inpatient (IN) | payer OTHER ==
[2020-08-13] MEDS ORDERED: DEXAMETHASONE SOD PHOSPHATE 10 MG/ML 1 ML VIAL IV STA (15:07)
[2020-08-13 15:30] LABS: Basophils # (A) 0.1 k/uL (0-0.2); Basophils % (A) 0 %; Eosinophils # (A) 0.3 k/uL (0-0.7); Eosinophils % (A) 2 %; HCT 36.3 % (39.0-53.0); HGB 12.6 gm/dL (13.0-17.5); Lymphocytes # (A) 1.1 k/uL (1.0-4.8); Lymphocytes % (A) 7 %; MCH 33.5 pg (25.0-35.0); MCHC 34.7 g/dL (31.0-37.0); MCV 96.5 fL (80.0-100.0); Mean Platelet Volume 8.1; Monocytes # (A) 0.9 k/uL (0-1.0); Monocytes % (A) 6 %; Neutrophils # (A) 13.7 k/uL (1.3-7.7); Neutrophils % (A) 85 %; Platelet Count 248 k/uL (150-450); RBC 3.76 m/uL (4.30-5.90); RDW 11.9 % (11.5-15.5); WBC 16.2 k/uL (3.8-10.6)
[2020-08-13 15:38] LABS: ALT 93 U/L (4-49); AST 254 U/L (17-59); African American GFR (CKD) 26 (>60 ml/min/1.73 sqM); Albumin 4.6 g/dL (3.5-5.0); Alcohol <10 mg/dL; Alkaline Phosphatase 73 U/L (38-126); Anion Gap 13 mmol/L; Blood Urea Nitrogen 35 mg/dL (9-20); Carbon Dioxide 21 mmol/L (22-30); Chloride 101 mmol/L (98-107); Glucose 97 mg/dL (74-99); Non-African American GFR(CKD) 23 (>60 ml/min/1.73 sqM); Potassium 5.1 mmol/L (3.5-5.1); Sodium 135 mmol/L (137-145); Total Bilirubin 0.6 mg/dL (0.2-1.3)
[2020-08-13 15:44] LABS: INR 0.9 (<1.2); Partial Thromboplastin Time 23.6 sec (22.0-30.0); Prothrombin Time 10.1 sec (9.0-12.0)
[2020-08-13] MEDS ORDERED: SODIUM CHLORIDE 0.9% 1,000 ML IV STA ×2 (15:53→15:59)
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
[2020-08-13] MEDS ORDERED: cefTRIAXone IN SWFI 1,000 MG/10 ML SYRINGE IVP STA (16:16)
--- NOTE | 2020-08-13 16:40 | XR ---
EXAMINATION TYPE: XR chest 2V DATE OF EXAM: 08/13/2020 COMPARISON: 07/13/2020 HISTORY: Shortness of breath TECHNIQUE: Frontal and lateral views of the chest are obtained. FINDINGS: Scattered senescent parenchymal changes noted. Hyperinflation compatible with COPD. No evidence for infiltrate. No evidence for atelectasis. Heart size is stable. Mediastinal structures are stable and grossly unremarkable. No evidence for hilar prominence. Degenerative changes dorsal spine. IMPRESSION: 1. No evidence for acute pulmonary disease.
[2020-08-13] MEDS ORDERED: TRANEXAMIC ACID 1,000 MG in SODIUM CHLORIDE 0.9% 100 ML IVPB ONE (16:50)
[2020-08-13] MEDS ORDERED: NALOXONE 0.4 MG/ML 1 ML VIAL IVP STA ×2 (17:06→18:48)
[2020-08-13] MEDS ORDERED: NALOXONE 0.4 MG/ML 1 ML VIAL IV PRN (18:19)
[2020-08-13] MEDS: SODIUM CHLORIDE 0.9% 1,000 ML IV SCH ×2 (18:46→23:14)
[2020-08-13] MEDS: oxyCODONE-APAP 10-325MG 1 EACH TAB PO SCH (23:13)
[2020-08-13 23:18] LABS: Acetaminophen 15.4 ug/mL; Salicylate <1.0 mg/dL
[2020-08-14] MEDS: oxyCODONE-APAP 10-325MG 1 EACH TAB PO SCH (05:55)
[2020-08-14 07:36] VITALS: BP 126/67; PULSE 85; RESP 17; TEMP 98.6
[2020-08-14] MEDS ORDERED: HYDROcodone/APAP 7.5-325MG 1 EACH TAB PO PRN (08:49)
[2020-08-14] MEDS ORDERED: METOPROLOL TARTRATE 25 MG TAB PO SCH (09:00)
[2020-08-14] MEDS ORDERED: ASPIRIN 81 MG PO SCH (09:00)
[2020-08-14] MEDS ORDERED: ISOSORBIDE MONONITRATE ER 30 MG TAB.ER.24H PO SCH (09:00)
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
[2020-08-14] MEDS ORDERED: FAMOTIDINE 20 MG TAB PO SCH (09:15)
--- NOTE | 2020-08-14 11:36 | P.DS ---
Providers Date of admission: 08/13/20 20:34 Attending physician: Americo Carvalho Consults: 08/13/20 18:33 Consult Physician Routine Consulting Provider: Devaughn Ireland Consult Reason/Comments: Acute kidney injury Do you want consulting provider notified?: Yes Primary care physician: Maryan Gomez [facility] Course: Patient left AGAINST MEDICAL ADVICE Patient Condition at Discharge: Fair Plan - Discharge Summary Discharge Rx Participant: No New Discharge Prescriptions: No Action oxyCODONE HCL/ACETAMINOPHEN [Percocet 10-325 mg] 1 tab PO Q6HR Rosuvastatin [Crestor] 40 mg PO DAILY #90 tablet Isosorbide Mononitrate ER [Imdur] 30 mg PO DAILY #30 tab.er.24h chlordiazePOXIDE HCl [Librium] 25 mg PO QID PRN 3 Days #12 capsule PRN Reason: Alcohol Withdrawal Metoprolol Tartrate [Lopressor] 25 mg PO BID #60 tab Gabapentin [Neurontin] 300 mg PO Q8H #21 cap Aspirin 81 mg PO DAILY #30 chew lisinopriL [Zestril] 10 mg PO DAILY #30 tab amLODIPine [Norvasc] 5 mg PO DAILY #30 tab Thiamine [Vitamin B-1] 100 mg PO DAILY #30 tab Omeprazole [PriLOSEC] 40 mg PO AC-BRKFST #30 capsule. Discharge Medication List oxyCODONE HCL/ACETAMINOPHEN [Percocet 10-325 mg] 1 tab PO Q6HR 07/07/20 [History] Aspirin 81 mg PO DAILY #30 chew 08/10/20 [Rx] Gabapentin [Neurontin] 300 mg PO Q8H #21 cap 08/10/20 [Rx] Isosorbide Mononitrate ER [Imdur] 30 mg PO DAILY #30 tab.er.24h 08/10/20 [Rx] Metoprolol Tartrate [Lopressor] 25 mg PO BID #60 tab 08/10/20 [Rx] Omeprazole [PriLOSEC] 40 mg PO AC-BRKFST #30 capsule. 08/10/20 [Rx] Rosuvastatin [Crestor] 40 mg PO DAILY #90 tablet 08/10/20 [Rx] Thiamine [Vitamin B-1] 100 mg PO DAILY #30 tab 08/10/20 [Rx] amLODIPine [Norvasc] 5 mg PO DAILY #30 tab 08/10/20 [Rx] chlordiazePOXIDE HCl [Librium] 25 mg PO QID PRN 3 Days #12 capsule 08/10/20 [Rx] lisinopriL [Zestril] 10 mg PO DAILY #30 tab 08/10/20 [Rx] Follow up Appointment(s)/Referral(s): Marybel Steinberg MD [Primary Care Provider] - 1-2 days Discharge Disposition: Left Against Medical Advice
[2020-08-14] MEDS ORDERED: predniSONE 20 MG TAB PO SCH (21:00)
== END 2020-08-14 09:40 | disposition left against medical advice (07) | DRG 916 ==
LOC: EC 14:41 → 4SSUR 20:34
PROVIDERS: ADMIT Internal Medicine; ATTEND Internal Medicine
DX: T78.3XXA Angioneurotic edema, initial encounter (principal); N17.9 Acute kidney failure, unspecified; I25.10 Atherosclerotic heart disease of native coronary artery without angina pectoris; Z20.822 Contact with and (suspected) exposure to COVID-19; I48.91 Unspecified atrial fibrillation; J44.9 Chronic obstructive pulmonary disease, unspecified; K70.10 Alcoholic hepatitis without ascites; I10 Essential (primary) hypertension; F41.9 Anxiety disorder, unspecified; F32.9 Major depressive disorder, single episode, unspecified; D72.829 Elevated white blood cell count, unspecified; E78.5 Hyperlipidemia, unspecified; F10.10 Alcohol abuse, uncomplicated; M54.9 Dorsalgia, unspecified; I95.9 Hypotension, unspecified; Z79.82 Long term (current) use of aspirin; Z79.899 Other long term (current) drug therapy; Z80.41 Family history of malignant neoplasm of ovary; Z82.49 Family history of ischemic heart disease and other diseases of the circulatory system; Z87.891 Personal history of nicotine dependence
CPT/HCPCS: 36415; 71046; 80053; 80143; 80179; 80320; 84484; 85025; 85610; 85730; 87040; 93005; 96365; 96375; 99285

== ENCOUNTER 2020-08-23 18:53 | Emergency (ER) | payer OTHER ==
[2020-08-23 19:04] VITALS: BP 130/78; PULSE 109; RESP 20; TEMP 98.1
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
[2020-08-23 20:20] LABS: Basophils # (A) 0.1 k/uL (0-0.2); Basophils % (A) 1 %; Eosinophils # (A) 0.3 k/uL (0-0.7); Eosinophils % (A) 3 %; HCT 39.1 % (39.0-53.0); HGB 13.1 gm/dL (13.0-17.5); Lymphocytes # (A) 1.9 k/uL (1.0-4.8); Lymphocytes % (A) 21 %; MCH 32.5 pg (25.0-35.0); MCHC 33.5 g/dL (31.0-37.0); MCV 96.8 fL (80.0-100.0); Monocytes # (A) 0.4 k/uL (0-1.0); Monocytes % (A) 5 %; Neutrophils # (A) 6.1 k/uL (1.3-7.7); Neutrophils % (A) 68 %; Platelet Count 266 k/uL (150-450); RBC 4.04 m/uL (4.30-5.90); RDW 12.8 % (11.5-15.5)
--- NOTE | 2020-08-23 20:20 | XR ---
EXAMINATION TYPE: XR chest 1V portable DATE OF EXAM: 08/23/2020 COMPARISON: 08/13/2020 HISTORY: Short of breath. Trauma. TECHNIQUE: Single view FINDINGS: There is no heart failure nor confluent pneumonic infiltrate. Costophrenic angles are clear . Bony thorax is intact. IMPRESSION: No active cardiopulmonary disease. Normal heart. No rib fracture seen. No pneumothorax.
[2020-08-23 20:23] LABS: African American GFR (CKD) >90 (>60 ml/min/1.73 sqM); Anion Gap 11 mmol/L; Blood Urea Nitrogen 13 mg/dL (9-20); Calcium 9.6 mg/dL (8.4-10.2); Carbon Dioxide 23 mmol/L (22-30); Chloride 105 mmol/L (98-107); Glucose 79 mg/dL (74-99); Magnesium 1.5 mg/dL (1.6-2.3); Non-African American GFR(CKD) 82 (>60 ml/min/1.73 sqM); Potassium 3.6 mmol/L (3.5-5.1); Sodium 139 mmol/L (137-145)
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
[2020-08-23 20:33] LABS: Alcohol 86 mg/dL
[2020-08-23] MEDS ORDERED: MAGNESIUM OXIDE 400 MG TAB PO STA (20:43)
[2020-08-23] MEDS ORDERED: oxyCODONE-APAP 10-325MG 1 EACH TAB PO STA (20:46)
[2020-08-23] MEDS ORDERED: ACET/COD 300 MG/30 MG STARTER PACK 6 TAB BTL PO STA (20:51)
[2020-08-23] MEDS: DIPH,PERTUS(ACELL)TETVAC-LF 0.5 ML VIAL IM ONE ×2 (20:53→20:55)
== END 2020-08-23 20:58 | disposition home or self-care (01) ==
LOC: EC 18:53
DX: S16.1XXA Strain of muscle, fascia and tendon at neck level, initial encounter (principal); E78.5 Hyperlipidemia, unspecified; F41.9 Anxiety disorder, unspecified; I10 Essential (primary) hypertension; J44.9 Chronic obstructive pulmonary disease, unspecified; Z79.82 Long term (current) use of aspirin; Z87.891 Personal history of nicotine dependence; V09.9XXA Pedestrian injured in unspecified transport accident, initial encounter
CPT/HCPCS: 36415; 93005; 80048; 83735; 85025; 71045; 72125; 70450; 99284; G0480; 80320; 90715

== ENCOUNTER 2020-08-26 13:44 | Inpatient (IN) | payer OTHER ==
[2020-08-26] MEDS ORDERED: SODIUM CHLORIDE 0.9% 500 ML 500 ML IV STA (14:50)
[2020-08-26] MEDS ORDERED: SODIUM CHLORIDE 0.9% 1,000 ML IV STA (14:50)
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
[2020-08-26 15:07] LABS: Basophils % (A) 1 %; Eosinophils # (A) 0.1 k/uL (0-0.7); Eosinophils % (A) 1 %; HCT 38.9 % (39.0-53.0); HGB 13.8 gm/dL (13.0-17.5); Lymphocytes % (A) 17 %; MCHC 35.5 g/dL (31.0-37.0); MCV 92.9 fL (80.0-100.0); Mean Platelet Volume 7.1; Monocytes # (A) 0.3 k/uL (0-1.0); Monocytes % (A) 6 %; Neutrophils # (A) 4.3 k/uL (1.3-7.7); Neutrophils % (A) 74 %; Platelet Count 285 k/uL (150-450); RBC 4.18 m/uL (4.30-5.90); WBC 5.8 k/uL (3.8-10.6)
[2020-08-26] MEDS ORDERED: LORazepam 2 MG/ML INJ IV STA (15:10)
[2020-08-26] MEDS ORDERED: SODIUM CHLORIDE 0.9% 1,000 ML with MVI, ADULT NO.4 WITH VIT K 10 ML, THIAMINE 100 MG, F... IV ONE ×4 (15:15)
[2020-08-26 15:16] LABS: ALT 60 U/L (4-49); AST 93 U/L (17-59); African American GFR (CKD) >90 (>60 ml/min/1.73 sqM); Albumin 5.3 g/dL (3.5-5.0); Alkaline Phosphatase 89 U/L (38-126); Anion Gap 16 mmol/L; Blood Urea Nitrogen 10 mg/dL (9-20); Calcium 10.2 mg/dL (8.4-10.2); Carbon Dioxide 23 mmol/L (22-30); Chloride 109 mmol/L (98-107); Glucose 154 mg/dL (74-99); Magnesium 1.8 mg/dL (1.6-2.3); Non-African American GFR(CKD) >90 (>60 ml/min/1.73 sqM); Potassium 4.2 mmol/L (3.5-5.1); Sodium 148 mmol/L (137-145); Total Bilirubin 0.4 mg/dL (0.2-1.3); Total Protein 7.8 g/dL (6.3-8.2)
[2020-08-26 15:25] LABS: INR 0.9 (<1.2); Partial Thromboplastin Time 21.9 sec (22.0-30.0)
[2020-08-26 15:29] LABS: Alcohol 330 mg/dL
[2020-08-26] MEDS ORDERED: ZIPRASIDONE 20 MG VIAL IM STA (16:00)
--- NOTE | 2020-08-26 16:00 | XR ---
EXAMINATION TYPE: XR chest 2V DATE OF EXAM: 08/26/2020 COMPARISON: 08/23/2020 HISTORY: chest pain TECHNIQUE: Frontal and lateral views of the chest are obtained. FINDINGS: There is no focal air space opacity, pleural effusion, or pneumothorax seen. The cardiac silhouette size is within normal limits. The osseous structures are intact. IMPRESSION: No acute cardiopulmonary process.
[2020-08-26] MEDS ORDERED: NITROGLYCERIN SL TABS 0.4 MG TAB SUBLINGUAL PRN (16:03)
[2020-08-26] MEDS ORDERED: THIAMINE 100 MG/ML 2 ML VIAL IM STA (16:03)
[2020-08-26] MEDS ORDERED: ASPIRIN 81 MG PO STA (16:03)
[2020-08-26] MEDS ORDERED: LORazepam 2 MG/ML INJ IV PRN ×2 (16:03)
[2020-08-26] MEDS: GABAPENTIN 300 MG CAP PO SCH (19:15)
[2020-08-26] MEDS: NITROGLYCERIN OINT 1 INCH/GM PACKET TOPICAL SCH ×2 (19:24→23:50)
[2020-08-26] MEDS: METOPROLOL TARTRATE 25 MG TAB PO SCH (20:56)
--- NOTE | 2020-08-26 21:09 | CT ---
EXAMINATION TYPE: CT brain wo con DATE OF EXAM: 08/26/2020 COMPARISON: 08/23/2020 HISTORY: AMS CT DLP: 1202.4 mGycm Automated exposure control for dose reduction was used. There is mild cerebral atrophy. There is no mass effect nor midline shift. There is no sign of intrac ranial hemorrhage. Calvarium is intact. There is normal aeration of the mastoid sinuses. IMPRESSION: Mild atrophy. No acute intracranial abnormality. No change.
--- NOTE | 2020-08-26 21:35 | HP ---
HISTORY AND PHYSICAL DATE OF SERVICE: 08/26/2020 CHIEF COMPLAINTS: Chest pain and alcohol intoxication. HISTORY OF PRESENT ILLNESS: This 55-year-old gentleman with a past medical history of multiple medical problems including history of atrial ablation, COPD, hypertension, hyperlipidemia, history of EtOH, being followed by Maryan in the outpatient setting, multiple hospital admissions for EtOH. Patient also had a previous admission for allergic reaction and angioedema. Currently the patient was found to be intoxicated and the patient also complaining of some chest pain. The blood alcohol is more than 300. The patient has some difficulty breathing. The patient unable to provide a coherent history. Most of the history is taken from my discussion with staff and review of the chart and discussion with the ER physician. The patient admitted for further evaluation and treatment. The patient apparently had some falls also. PAST MEDICAL HISTORY: History of atrial ablation, COPD, hypertension, hyperlipidemia, history of EtOH. MEDICATIONS: The home medications prior to admission include: Oxycodone, Zestril, Librium, Norvasc, vitamin B1, Crestor, Prilosec. Lopressor, Imdur, Neurontin, aspirin. ALLERGIES: None. Family history, social history and review of systems could not be taken. History of CABG in the family. History of alcohol as mentioned earlier. History of previous smoking per chart. PHYSICAL EXAMINATION: Patient is stuporous. Pulse 118, blood pressure 153/99, respiration 18. Temperature 98.2, pulse ox 94% on room air. HEENT is conjunctivae normal. Oral mucosa moist. NECK is no jugular venous distention. No carotid bruit. No lymph node enlargement. CARDIOVASCULAR system: S1, S2. No S3, no S4. RESPIRATIONS: Breath sounds diminished in the bases. A few scattered rhonchi. ABDOMEN: Soft, nontender. No mass palpable. LEGS are no edema. No swelling. NERVOUS SYSTEM: The patient is stuporous. Full exam is not possible. SKIN: Minimal bruises noted. JOINTS: No active deforming arthropathy. LYMPHATICS: No lymph nodes palpable in the neck, axillae or groin. LABS: WBC 5.2, hemoglobin 13.2, sodium 148, troponin 0.063. Alcohol is 330. Previous troponins also similar values. The EKG which is personally reviewed by me showed minimal ST-T changes. ASSESSMENT: 1. Chest pain, possible unstable angina. 2. Troponin 0.063, rule out acute htq-JS-hoptahj-elevation myocardial infarction. 3. Alcohol intoxication. moderate ERNIE and LVOT obstruction 4. Change in mental status, acute metabolic encephalopathy secondary to alcohol intoxication. 5. Hypernatremia. 6. Elevated AST/ALT possibly alcoholic hepatitis. 7. History of atrial fibrillation. 8. Chronic obstructive pulmonary disease. 9. Hypertension. 10.Hyperlipidemia. 11.History of noncompliance. 12.History of anxiety, depression. 13.Remote history of nicotine dependence. RECOMMENDATIONS AND DISCUSSION: This 55-year-old gentleman who presented with multiple complex medical issues, we will monitor the patient closely, continue the current medications, and symptomatic treatment. Otherwise at this time, I would also recommend Cardiology consultation and [facility] protocol. Resume the home medications. Recommend alcohol counseling as an outpatient. Resume the home medications. Prognosis guarded because of multiple complex medical issues. Further recommendations to follow. A copy of the dictation being forwarded to Dr. Steinberg, who is the primary physician. GLORIA / ANTONELLAN: [id number] / ROSEMARY
[2020-08-26] MEDS: oxyCODONE-APAP 10-325MG 1 EACH TAB PO SCH (23:49)
[2020-08-27] MEDS: GABAPENTIN 300 MG CAP PO SCH ×3 (02:41→17:39)
[2020-08-27] MEDS: oxyCODONE-APAP 10-325MG 1 EACH TAB PO SCH ×4 (06:10→23:29)
[2020-08-27] MEDS: NITROGLYCERIN OINT 1 INCH/GM PACKET TOPICAL SCH (06:11)
[2020-08-27] MEDS: THIAMINE 100 MG TAB PO SCH ×2 (06:36→17:39)
[2020-08-27] MEDS: PANTOPRAZOLE 40 MG TABLET PO SCH (06:36)
[2020-08-27] MEDS ORDERED: ASPIRIN 325 MG TAB PO SCH (09:00)
[2020-08-27 09:19] LABS: Basophils % (A) 1 %; Eosinophils # (A) 0.2 k/uL (0-0.7); Eosinophils % (A) 4 %; HGB 12.5 gm/dL (13.0-17.5); Lymphocytes # (A) 1.3 k/uL (1.0-4.8); Lymphocytes % (A) 24 %; MCH 32.7 pg (25.0-35.0); MCHC 33.8 g/dL (31.0-37.0); MCV 96.8 fL (80.0-100.0); Mean Platelet Volume 7.2; Monocytes # (A) 0.4 k/uL (0-1.0); Monocytes % (A) 7 %; Neutrophils # (A) 3.4 k/uL (1.3-7.7); Neutrophils % (A) 62 %; Platelet Count 243 k/uL (150-450); RBC 3.83 m/uL (4.30-5.90); RDW 12.9 % (11.5-15.5); WBC 5.5 k/uL (3.8-10.6)
[2020-08-27 09:52] LABS: African American GFR (CKD) >90 (>60 ml/min/1.73 sqM); Anion Gap 8 mmol/L; Blood Urea Nitrogen 10 mg/dL (9-20); Calcium 9.4 mg/dL (8.4-10.2); Carbon Dioxide 29 mmol/L (22-30); Chloride 105 mmol/L (98-107); Glucose 174 mg/dL (74-99); Non-African American GFR(CKD) >90 (>60 ml/min/1.73 sqM); Sodium 142 mmol/L (137-145)
[2020-08-27] MEDS: METOPROLOL TARTRATE 25 MG TAB PO SCH (10:03)
[2020-08-27] MEDS: lisinopriL 10 MG TAB PO SCH (10:04)
[2020-08-27] MEDS: ATORVASTATIN 80 MG TAB PO SCH (10:04)
[2020-08-27] MEDS: ISOSORBIDE MONONITRATE ER 30 MG TAB.ER.24H PO SCH (10:04)
[2020-08-27] MEDS: amLODIPine 5 MG TAB PO SCH (10:04)
--- NOTE | 2020-08-27 11:00 | ECHOF ---
Referral Reason:chest pain MEASUREMENTS -------- HEIGHT: 172.7 cm WEIGHT: 93.0 kg BP: 121/65 IVSd: 1.5 cm (0.6 - 1.1) LVIDd: 4.4 cm (3.9 - 5.3) LVPWd: 1.6 cm (0.6 - 1.1) EDV(Teich): 89 ml IVSs: 2.0 cm LVIDs: 2.7 cm LVPWs: 2.1 cm %IVS Thck: 34 % ESV(Teich): 27 ml EF(Teich): 70 % %FS: 39 % SV(Teich): 62 ml LVOT Diam: 2.1 cm LA Diam: 3.6 cm (2.7 - 3.8) RVIDd: 3.4 cm (< 3.3) LALs A4C: 5.2 cm LAAs A4C: 17.8 cm LAESV A-L A4C: 52 ml LAESV MOD A4C: 48 ml LALs A2C: 5.6 cm LAAs A2C: 17.7 cm LAESV A-L A2C: 48 ml LAESV MOD A2C: 45 ml LAESV(A-L): 51 ml LAESV Index (A-L): 24.87 ml/m Ao Diam: 3.4 cm (2.0 - 3.7) AV Cusp: 2.4 cm (1.5 - 2.6) EPSS: 0.1 cm MV E Robert: 0.69 m/s MV DecT: 236 ms MV Dec Concho: 2.9 m/s MV A Robert: 0.78 m/s MV E/A Ratio: 0.88 MV PHT: 68 ms LVOT Vmax: 2.41 m/s LVOT maxP.15 mmHg LVOT Vmax: 2.39 m/s LVOT Vmean: 1.33 m/s LVOT maxP.94 mmHg LVOT meanP.10 mmHg LVOT Env.Ti: 371 ms LVOT VTI: 48.8 cm AV Vmax: 2.29 m/s AV maxP.00 mmHg GLADYS Vmax, Pt: 3.6 cm GLADYS Vmax: 3.6 cm AV Vmax: 2.21 m/s AV Vmean: 1.68 m/s AV maxP.45 mmHg AV meanP.10 mmHg AV Env.Ti: 226 ms AV VTI: 38.0 cm GLADYS Vmax: 3.8 cm GLADYS (VTI): 4.4 cm GLADYS Vmax, Pt: 3.8 cm TR Vmax: 2.57 m/s TR maxP.41 mmHg RAP: 5.00 mmHg RVSP: 31.41 mmHg MV EF SLOPE: 62.42 mm/s (70 - 150) MV EXCURSION: 16.66 mm (> 18.000) FINDINGS -------- Sinus rhythm. This was a technically good study. The left ventricular size is normal. There is moderate concentric left ventricular hypertrophy. O verall left ventricular systolic function is normal with, an EF between 60 - 65 %. The right ventricle is mildly enlarged. Normal LA size by volume 22+/-6 ml/m2. The right atrium is normal in size. Interatrial and interventricular septum intact. LVOT obstruction with mean gradient of 12 mmHg There is trace to mild mitral regurgitation. The tricuspid valve appears structurally normal. Unable to estimate RVSP due to inadequate TR jet s pectral doppler profile. Trace/mild (physiologic) pulmonic regurgitation. The aortic root size is normal. Normal inferior vena cava with normal inspiratory collapse consistent with estimated right atrial pre ssure of 5 mmHg. There is no pericardial effusion. CONCLUSIONS -------- 1. The left ventricular size is normal. 2. There is moderate concentric left ventricular hypertrophy. 3. Overall left ventricular systolic function is normal with, an EF between 60 - 65 %. 4. The right ventricle is mildly enlarged. 5. Normal LA size by volume 22+/-6 ml/m2. 6. LVOT obstruction with mean gradient of 12 mmHg 7. There is trace to mild mitral regurgitation. 8. Trace/mild (physiologic) pulmonic regurgitation. 9. There is no pericardial effusion. CAN LABELER: Genesis Muhammad RDCS
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
[2020-08-27 13:58] LABS: Appearance,Urine Cloudy (Clear); Bilirubin,Urine Negative (Negative); Blood,Urine Negative (Negative); Color,Urine Yellow; Glucose,Urine (UA) Trace (Negative); Ketones,Urine Trace (Negative); Leukocyte Esterase,Urine Negative (Negative); Mucus,Urine Many /hpf; Nitrite,Urine Negative (Negative); Protein,Urine 1+ (Negative); Specific Gravity,Urine 1.031 (1.001-1.035); WBC,Urine 18 /hpf (0-5)
[2020-08-27] MEDS ORDERED: oxyCODONE-APAP 10-325MG 1 EACH TAB PO STA (15:58)
[2020-08-27] MEDS: RANOLAZINE 500 MG TAB.ER.12H PO SCH ×2 (17:39→19:51)
[2020-08-27] MEDS: LORazepam 2 MG/ML INJ IV PRN ×2 (17:47→20:02)
[2020-08-27 18:32] LABS: Chol/HDL Ratio 2.79; Cholesterol 145 mg/dL (0-200); LDL Cholesterol,Calculated 67.8 mg/dL (0.0-131.0)
[2020-08-27] MEDS: METOPROLOL TARTRATE 50 MG TAB PO SCH (19:51)
[2020-08-27] MEDS ORDERED: QUEtiapine 50 MG TAB PO SCH (21:00)
[2020-08-27] MEDS: traZODone HCL 50 MG TAB PO SCH (23:29)
[2020-08-28] MEDS: GABAPENTIN 300 MG CAP PO SCH ×3 (02:29→17:55)
[2020-08-28] MEDS: oxyCODONE-APAP 10-325MG 1 EACH TAB PO SCH ×4 (06:36→22:51)
[2020-08-28] MEDS: PANTOPRAZOLE 40 MG TABLET PO SCH (06:36)
[2020-08-28] MEDS: THIAMINE 100 MG TAB PO SCH ×2 (06:37→17:55)
[2020-08-28] MEDS: METOPROLOL TARTRATE 50 MG TAB PO SCH ×2 (09:20→19:48)
[2020-08-28] MEDS: ISOSORBIDE MONONITRATE ER 30 MG TAB.ER.24H PO SCH (09:20)
[2020-08-28] MEDS: lisinopriL 10 MG TAB PO SCH (09:20)
[2020-08-28] MEDS: FLUoxetine HCL 10 MG CAP PO SCH (09:20)
[2020-08-28] MEDS: amLODIPine 5 MG TAB PO SCH (09:20)
[2020-08-28] MEDS: ASPIRIN 81 MG PO SCH (09:20)
[2020-08-28] MEDS: ATORVASTATIN 80 MG TAB PO SCH (09:20)
[2020-08-28] MEDS: RANOLAZINE 500 MG TAB.ER.12H PO SCH ×2 (09:20→19:48)
--- NOTE | 2020-08-28 11:26 | PN ---
PROGRESS NOTE DATE OF SERVICE: 08/27/2020 This 55-year-old gentleman who was admitted with chest pain and alcohol intoxication, also had possibly LV out obstruction. The 2D echo, which is moderate in severity, trace to mild mitral regurgitation was also noted. No chest pain. No palpitations. No fever. Cardiology following the patient closely. Psychiatry also. PHYSICAL EXAMINATION: Alert and oriented x3, pulse is 76, blood pressure 128/70, respiration 20, temperature 97.2, pulse ox 98% on room air. HEENT: Conjunctivae normal. RESPIRATORY SYSTEM: Breath sounds diminished at the bases, scattered rhonchi. ABDOMEN: Soft. NERVOUS SYSTEM: Nonfocal. LABS: WBC 5.2, hemoglobin 12.5. Troponin 0.055. Serum alcohol 330. ASSESSMENT: 1. Chest pain, possible unstable angina. 2. Troponin 0.063, rule out acute seo-NM-erqwgvm-elevation myocardial infarction. 3. Acute alcohol intoxication. 4. Moderate ERNIE with LVOT obstruction. 5. Change in mental status acute metabolic encephalopathy secondary to alcohol intoxication. 6. Hyponatremia. 7. Elevated AST, ALT, possibly alcoholic hepatitis. 8. History atrial fibrillation. 9. Chronic obstructive pulmonary disease. 10.History of hypertension. 11.History of hyperlipidemia. 12.History of noncompliance. 13.History of anxiety, depression. 14.Remote history of nicotine dependence. RECOMMENDATIONS AND DISCUSSION: To continue current medications, management and treatment. Otherwise at this time I would closely follow with Cardiology. Guarded prognosis. Further recommendations to follow. Psychiatry input appreciated. GLORIA / MAYURI: [id number] /
[2020-08-28] MEDS ORDERED: ISOSORBIDE MONONITRATE ER 30 MG TAB.ER.24H PO STA (12:55)
--- NOTE | 2020-08-28 13:47 | P.PN ---
Subjective Progress Note Date: 08/28/20 HISTORY OF PRESENT ILLNESS: This is a 55-year-old male with a past medical history significant for hypertension, paroxysmal atrial fibrillation, alcohol abuse, COPD, and chronic nicotine dependence. 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 We have been asked to see the patient in consultation for chest pain. patient underwent cardiac catheterization on 08/03/2020 revealing extremely calcified right and left coronary systems, distal left main disease appearing to be in the range of 50%, intermediate disease involving the ostial RCA. Normal LVEDP. Patient was evaluated by cardiothoracic surgery and medical management was recommended. Patient examined at the bedside. Patient states he began having chest discomfort yesterday while sitting at home watching TV. Patient states the pain was in the middle of his chest and went into his left arm. He states the pain lasted most o f the day yesterday before he finally decided to come to the emergency room. Patient currently denies chest pain. Patient was found to have an alcohol level of 330 in the emergency room. Patient is a current daily smoker. EKG reveals sinus tachycardia with no signs of acute ischemia Chest xray negative for acute process Laboratory data: WBC 5.5. Hemoglobin 12.5. Platelet count 243. Sodium 142. Potassium 4.0. BUN 10. Creatinine 0.84. Magnesium 1.8. Current home cardiac medications include lisinopril 10 mg daily, amlodipine 5 mg daily, Crestor 40 mg daily, metoprolol tartrate 25 mg twice a day, Imdur 30 mg daily, aspirin [address] of brain: Mild atrophy. No acute process. Most recent echocardiogram obtained in June 2020 reveals ejection fraction 65- 70%, moderate ERNIE, severe concentric left ventricular hypertrophy, mild mitral regurgitation, mild tricuspid regurgitation, and mild to moderate pulmonary hypertension 08/28/2020 Patient examined this morning at the bedside. Patient currently denies chest pain or pressure. He denies shortness of breath. Patient does report having an episode overnight of chest discomfort. Patient's vital signs are stable. Echocardiogram completed reveals ejection fraction 60-65%. PHYSICAL EXAM: VITAL SIGNS: Reviewed. GENERAL: Well-developed in no acute distress. HEENT: Head is normocephalic. Pupils are equal, round. Sclerae anicteric. Mucous membranes of the mouth are moist. Neck supple. No JVD or thyromegaly LUNGS: Respirations even and unlabored. Lungs essentially clear to auscultation bilaterally. HEART: Regular rate and rhythm. S1 and S2 heard. Systolic murmur noted. ABDOMEN: Soft. Nondistended. Nontender. EXTREMITIES: Normal range of motion. No clubbing or cyanosis. Peripheral pulses intact. No lower extremity edema NEUROLOGIC: Awake and alert. Oriented x 3. ASSESSMENT: Chest pain Abnormal troponins, not suggestive of ACS Coronary artery disease hyperlipidemia Paroxysmal atrial fibrillation, not on long-term anticoagulation Acute alcohol intoxication History of alcohol abuse Nicotine dependence PLAN: Continue current cardiac medications Ranexa was added to patient's medication regimen yesterday Metoprolol was increased to 50 mg twice a day yesterday Will increase Imdur to 60 mg daily Continue medical management Recommend abstinence from alcohol Smoking cessation recommended Further recommendations pending patient's course Nurse practitioner note has been reviewed by physician. Signing provider agrees with the documented findings, assessment, and plan of care. Objective - Vital Signs Vital signs: Vital Signs Temp 97.6 F 08/28/20 11:51 Pulse 68 08/28/20 11:51 Resp 16 08/28/20 13:40 BP 124/76 08/28/20 11:51 Pulse Ox 100 08/28/20 11:51 Intake & Output 08/27/20 08/28/20 08/28/20 18:59 06:59 18:59 Intake Total 1000 720 Output Total 500 120 Balance 500 -120 720 Weight 92.9 kg Intake: Oral 1000 720 Output: Urine 500 120 Other: # Voids 1 3 - Labs CBC & Chem 7: 08/27/20 08:40 08/27/20 08:40 Labs: Abnormal Lab Results - Last 24 Hours (Table) 08/27/20 Range/Units 13:30 Urine Protein 1+ H (Negative) Urine Glucose (UA) Trace H (Negative) Urine Ketones Trace H (Negative) Urine WBC 18 H (0-5) /hpf Urine Mucus Many H (None) /hpf
[2020-08-28] MEDS: LORazepam 2 MG/ML INJ IV PRN ×3 (14:14→21:34)
[2020-08-28] MEDS ORDERED: NICOTINE 14MG/24HR PATCH TRANSDERM STA (22:13)
--- NOTE | 2020-08-28 22:37 | PN ---
PROGRESS NOTE DATE OF SERVICE: 08/28/2020 This 55-year-old gentleman, admitted with alcohol intoxication, also had chest pain. Patient had elevated troponin indicative of possible acute dpq-YC-xiwfhhu-elevation myocardial infarction. Medical treatments, recommended to Cardiology. No chest pain. No palpitations. No fever. Xanax has been added. PAST MEDICAL HISTORY: Reviewed. REVIEW OF SYSTEMS: CARDIOVASCULAR: As mentioned earlier. : As mentioned earlier. GI: As mentioned earlier. NERVOUS SYSTEM: Nonfocal. CURRENT MEDICATIONS: Reviewed include Norvasc, aspirin, Lipitor, Librium, Neurontin, Imdur, Zestril, Ativan. Doses reviewed. PHYSICAL EXAMINATION: Patient alert, oriented x4. Pulse 72, blood pressure 115/60, respirations 16, temperature 98 degrees, pulse ox 100 percent room air. HEENT: S1, S2 muffled. NECK: No JVD. RESPIRATORY SYSTEM: Breath sounds diminished at the bases. Scattered rhonchi. ABDOMEN: Soft, nervous stomach. LABS: WBC ( ), hemoglobin 12.5. UA noted. ASSESSMENT: 1. Chest pain, possible unstable angina. 2. Troponin 0.063, rule out acute auq-TR-flhwgbt-elevation myocardial infarction. 3. Acute alcohol intoxication. 4. Moderate ERNIE with LVOT obstruction. 5. Change in mental status, acute metabolic encephalopathy secondary to alcohol and drugs intoxication, present on admission. 6. Hyponatremia. 7. Elevated AST, ALT. Possibly alcoholic hepatitis. 8. History atrial fibrillation, chronic. 9. COPD. 10.History of hypertension. 11.History of hyperlipidemia. 12.History of noncompliance. 13.History of anxiety, depression. 14.Remote history of nicotine dependence. RECOMMENDATIONS AND DISCUSSION: Recommend to continue current management and symptomatic treatment. Otherwise, at this time I would recommend closely follow with Cardiology. Prognosis guarded. Further recommendations to follow. See orders for details. Continue with antiplatelets. Continue the Ranexa. MMODL / IJN: [id number] /
[2020-08-28] MEDS: traZODone HCL 50 MG TAB PO SCH (22:51)
[2020-08-29] MEDS: LORazepam 2 MG/ML INJ IV PRN ×4 (00:41→13:29)
[2020-08-29] MEDS: chlordiazePOXIDE 25 MG CAP PO PRN ×2 (00:47→19:56)
[2020-08-29] MEDS ORDERED: HALOPERIDOL LACTATE 5 MG/ML 1 ML VIAL IM STA ×2 (01:27→02:20)
[2020-08-29] MEDS: GABAPENTIN 300 MG CAP PO SCH ×3 (02:33→17:48)
[2020-08-29] MEDS: PANTOPRAZOLE 40 MG TABLET PO SCH (06:22)
[2020-08-29] MEDS: THIAMINE 100 MG TAB PO SCH ×2 (06:22→17:47)
[2020-08-29 09:34] VITALS: RESP 16
[2020-08-29] MEDS: ISOSORBIDE MONONITRATE ER 60 MG TAB.ER.24H PO SCH (09:39)
[2020-08-29] MEDS: ASPIRIN 81 MG PO SCH (09:39)
[2020-08-29] MEDS: METOPROLOL TARTRATE 50 MG TAB PO SCH ×2 (09:39→20:05)
[2020-08-29] MEDS: lisinopriL 10 MG TAB PO SCH (09:39)
[2020-08-29] MEDS: FLUoxetine HCL 10 MG CAP PO SCH (09:39)
[2020-08-29] MEDS: RANOLAZINE 500 MG TAB.ER.12H PO SCH ×2 (09:39→20:05)
[2020-08-29] MEDS: amLODIPine 5 MG TAB PO SCH (09:39)
[2020-08-29] MEDS: ATORVASTATIN 80 MG TAB PO SCH (09:40)
--- NOTE | 2020-08-29 12:04 | P.PN ---
Subjective Progress Note Date: 08/29/20 HISTORY OF PRESENT ILLNESS: This is a 55-year-old male with a past medical history significant for hypertension, paroxysmal atrial fibrillation, alcohol abuse, COPD, and chronic nicotine dependence. Patient does not follow a key account executive. We have been asked to see the patient in consultation for chest pain. patient underwent cardiac catheterization on 08/03/2020 revealing extremely calcified right and left coronary systems, distal left main disease appearing to be in the range of 50%, intermediate disease involving the ostial RCA. Normal LVEDP. Patient was evaluated by cardiothoracic surgery and medical management was recommended. Patient examined at the bedside. Patient states he began having chest discomfort yesterday while sitting at home watching TV. Patient states the pain was in the middle of his chest and went into his left arm. He states the pain lasted most o f the day yesterday before he finally decided to come to the emergency room. Patient currently denies chest pain. Patient was found to have an alcohol level of 330 in the emergency room. Patient is a current daily smoker. EKG reveals sinus tachycardia with no signs of acute ischemia Chest xray negative for acute process Laboratory data: WBC 5.5. Hemoglobin 12.5. Platelet count 243. Sodium 142. Potassium 4.0. BUN 10. Creatinine 0.84. Magnesium 1.8. Current home cardiac medications include lisinopril 10 mg daily, amlodipine 5 mg daily, Crestor 40 mg daily, metoprolol tartrate 25 mg twice a day, Imdur 30 mg daily, aspirin [address] of brain: Mild atrophy. No acute process. Most recent echocardiogram obtained in June 2020 reveals ejection fraction 65- 70%, moderate ERNIE, severe concentric left ventricular hypertrophy, mild mitral regurgitation, mild tricuspid regurgitation, and mild to moderate pulmonary hypertension 08/28/2020 Patient examined this morning at the bedside. Patient currently denies chest pain or pressure. He denies shortness of breath. Patient does report having an episode overnight of chest discomfort. Patient's vital signs are stable. Echocardiogram completed reveals ejection fraction 60-65%. 08/29/2020 Patient examined this morning at the bedside. Patient denies chest pain or pressure. He denies shortness of breath. Patient apparently started going through DTs yesterday and became agitated. He is currently receiving Ativan per [facility] protocol. PHYSICAL EXAM: VITAL SIGNS: Reviewed. GENERAL: Well-developed in no acute distress. HEENT: Head is normocephalic. Pupils are equal, round. Sclerae anicteric. Mucous membranes of the mouth are moist. Neck supple. No JVD or thyromegaly LUNGS: Respirations even and unlabored. Lungs essentially clear to auscultation bilaterally. HEART: Regular rate and rhythm. S1 and S2 heard. Systolic murmur noted. ABDOMEN: Soft. Nondistended. Nontender. EXTREMITIES: Normal range of motion. No clubbing or cyanosis. Peripheral pulses intact. No lower extremity edema NEUROLOGIC: Awake and alert. Oriented x 3. ASSESSMENT: Chest pain Abnormal troponins, not suggestive of ACS Coronary artery disease hyperlipidemia Paroxysmal atrial fibrillation, not on long-term anticoagulation Acute alcohol intoxication History of alcohol abuse Nicotine dependence PLAN: Continue current cardiac medications Continue medical management Recommend abstinence from alcohol Smoking cessation recommended No further inpatient recommendations from a cardiac standpoint. We will sign off. Please reconsult if needed. Nurse practitioner note has been reviewed by physician. Signing provider agrees with the documented findings, assessment, and plan of care. Objective - Vital Signs Vital signs: Vital Signs Temp 98.0 F 08/29/20 08:00 Pulse 65 08/29/20 08:00 Resp 16 08/29/20 08:00 BP 109/64 08/29/20 08:00 Pulse Ox 96 08/29/20 08:00 Intake & Output 08/28/20 08/29/20 08/29/20 18:59 06:59 18:59 Intake Total 1200 Balance 1200 Weight 93.1 kg Intake: Oral 1200 Other: # Voids 1 1 - Labs CBC & Chem 7: 08/27/20 08:40 08/27/20 08:40
[2020-08-29] MEDS: oxyCODONE-APAP 10-325MG 1 EACH TAB PO SCH ×4 (12:38→23:06)
[2020-08-29] MEDS ORDERED: HALOPERIDOL LACTATE 5 MG/ML 1 ML VIAL IM PRN (17:38)
[2020-08-29] MEDS: NICOTINE 14MG/24HR PATCH TRANSDERM SCH (20:05)
--- NOTE | 2020-08-29 21:37 | PN ---
PROGRESS NOTE DATE OF SERVICE: 08/29/2020 This 55-year-old gentleman who was admitted with chest pain also had elevated troponin. The patient also confused. Patient had features of full-blown DTs last night. No chest pain. No palpitations. No fever. The patient is sedated with Ativan. PAST MEDICAL HISTORY: Reviewed. REVIEW OF SYMPTOMS: Could not be taken, the patient is drowsy. CURRENT MEDICATIONS: Reviewed and include: Norvasc, aspirin, Lipitor, Rocephin, Librium, Prozac, Neurontin. Doses are reviewed. PHYSICAL EXAMINATION: Patient is stuporous. Pulse 69. Blood pressure 107/69, respirations 16, temperature 98 degrees, pulse ox 98% on room air. HEENT: Conjunctivae normal. Neck: No JVD. Cardiovascular: S1, S2 muffled. Respiration: Breath sounds diminished in the bases. A few scattered rhonchi and crackles. Abdomen: Soft, nontender. Legs are no edema. No swelling. Nervous system: Higher functions as mentioned earlier. Moves all four limbs. No motor or focal deficits. Lymphatics: No lymph nodes palpable in the neck, axillae or groin. Skin: No ulcer, rash or bleeding. Joints: No active deforming arthropathy. LABS: WBC 5.5, hemoglobin 12.5. Other labs are noted. UA noted. ASSESSMENT: 1. Chest pain possible unstable angina, present on admission. 2. Acute delirium tremens. 3. Change in mental status acute metabolic encephalopathy secondary to delirium tremens. 4. Troponin 0.063, possibly secondary to coronary artery disease, acute non ST- segment elevation, likely rather chronic elevation. 5. Acute alcohol intoxication present on admission. 6. Moderate with LVOT obstruction. 7. Hyponatremia. 8. Acute urinary tract infection present on admission. 9. Elevated AST/ALT possibly alcoholic hepatitis. 10.History of chronic atrial fibrillation. 11.Chronic obstructive pulmonary disease. 12.Hypertension. 13.Hyperlipidemia. 14.History of noncompliance. 15.History of anxiety, depression. 16.Remote history of nicotine dependence. RECOMMENDATIONS AND DISCUSSION: I recommend to continue current medications, management and symptomatic treatment. Continue with antibiotics. Continue CIWA protocol. Continue with vitamins. Continue to monitor. Closely follow with multiple consultants. We will also arrange possible rehab once the patient is stabilized as an outpatient. Further recommendations to follow. MMODL / IJN: [id number] / MTDD
[2020-08-29] MEDS: traZODone HCL 50 MG TAB PO SCH (23:06)
[2020-08-30 04:55] VITALS: PULSE 81
[2020-08-30] MEDS: GABAPENTIN 300 MG CAP PO SCH ×2 (05:03→12:07)
[2020-08-30] MEDS: oxyCODONE-APAP 10-325MG 1 EACH TAB PO SCH ×2 (05:03→12:07)
[2020-08-30] MEDS: PANTOPRAZOLE 40 MG TABLET PO SCH (05:05)
[2020-08-30] MEDS: THIAMINE 100 MG TAB PO SCH (05:05)
[2020-08-30] MEDS: METOPROLOL TARTRATE 50 MG TAB PO SCH (09:01)
[2020-08-30] MEDS: ISOSORBIDE MONONITRATE ER 60 MG TAB.ER.24H PO SCH (09:02)
[2020-08-30] MEDS: amLODIPine 5 MG TAB PO SCH (09:02)
[2020-08-30] MEDS: RANOLAZINE 500 MG TAB.ER.12H PO SCH (09:02)
[2020-08-30] MEDS: FLUoxetine HCL 10 MG CAP PO SCH (09:02)
[2020-08-30] MEDS: ASPIRIN 81 MG PO SCH (09:02)
[2020-08-30] MEDS: lisinopriL 10 MG TAB PO SCH (09:02)
[2020-08-30] MEDS: ATORVASTATIN 80 MG TAB PO SCH (09:02)
[2020-08-30] MEDS: NICOTINE 14MG/24HR PATCH TRANSDERM SCH (09:03)
[2020-08-30 10:32] VITALS: BP 126/79; TEMP 98.5
[2020-08-30] MEDS: chlordiazePOXIDE 25 MG CAP PO PRN (11:15)
--- NOTE | 2020-08-30 13:04 | CDI ---
Documentation Clarification Form Date: 08/30/2020 12:35:33 PM From: Alyson Madden RN CCDS Admit Date: 08/26/2020 04:03:00 PM Patient Name: Valdemar Flowers Visit Number: [id number] Discharge Date: ATTENTION: The Clinical Documentation Specialists (CDI) and [facility] Coding Staff appreciate your assistance in clarifying documentation. Please respond to the clarification below the line at the bottom and electronically sign. The CDI & [facility] Coding staff will review the response and follow-up if needed. Please note: Queries are made part of the Legal Health Record. If you have any questions, please contact the author of this message via ITS. Dr. Sana Wynn Acute Non-ST- segment elevation is documented 08/29, Medicine progress note. Additional clarification regarding the type of RI is requested. History/Risk Factors: 55-year-old male presents to the ED with chest pain. Medical history: Atrial fibrillation; COPD and HTN. H&P 08/26 Clinical Indicators: Medicine progress note 08/29: Troponin, possibly secondary to coronary artery disease, acute [id number] elevation, likely rather chronic elevation. H&P 08/26: Previous troponins also similar values. The EKG which is personally reviewed by me showed minimal ST-T changes. Troponin: 08/26: 0.063; 0.057; 0.055. EKG Results: 08/26 14:04 Sinus Tachycardia. 08/27 12:45 Normal sinus rhythm. Prolonged QT. Treatment: 08/26 Aspirin 325mg PO x1 Pt refused. 08/27 Aspirin 325mg PO Daily changed 08/28 81mg PO Daily to current. 08/27 Imdur 30mg PO Daily changed 08/29 60mg PO Daily to current. Please clarify the type of RI, if known: [ ] STEMI Ruled In [ ] STEMI Ruled Out [ ] Type II RI due to (please specify etiology) [ ] Unable to determine [ ] Other Condition, please specify (Template Last Revised: April 2020) STEMI Ruled out Unable to determine MTDD
--- NOTE | 2020-08-31 01:50 | P.DS ---
Providers Date of admission: 08/26/20 16:03 Expected date of discharge: 08/30/20 Attending physician: Sana Wynn Consults: 08/26/20 18:17 Consult Physician Routine Consulting Provider: Reji Edmonds Consult Reason/Comments: Alcohol Abuse Do you want consulting provider notified?: Yes Primary care physician: Maryan No [facility] Course: Final diagnosis STEMI ruled out Chest pain possible unstable angina, present on admission Acute delirium tremens Change in mental status acute metabolic encephalopathy secondary to delirium tremens Troponin 0.063, possibly secondary to coronary artery disease, acute non-ST segment elevation, likely rather chronic elevation Acute alcohol intoxication, present on admission Hyponatremia Acute urinary tract infection, present on admission Elevated AST, ALT possibly alcoholic hepatitis history of chronic atrial fibrillation chronic obstructive pulmonary disease Hypertension Hyperlipidemia History of noncompliance history of anxiety, depression Remote history of nicotine dependence Discharge disposition Patient is being discharged in a stable condition with guarded prognosis to home. Patient will follow-up with Dr. Steinberg in the outpatient setting upon discharge. Patient is to follow up with cardiology Dr. Savage outpatient. Patient given prescription for Librium taper. Total time taken is greater than 35 minutes. Hospital Course This is a 55-year-old male who was recently admitted with chest pain and acute alcohol intoxication and was being closely monitored. Patient was seen by cardiology and recommending outpatient follow up with continued medications as prescribed previously. Patient was maintained on CIWA protocol and closely monitored. Patient sensorium improved and gait is steady on exam. Educated patient on abstaining from alcohol intake. Resources provided for community mental health services and alcohol rehab programs. Currently no reports of chest pain, shortness of breath, or palpitations. Patient is afebrile. No reports of nausea or vomiting and patient is tolerating diet. Patient will be discharged to home today. Guarded prognosis. On exam vital signs are stable. Cardio S1, S2 are muffled. Respiratory system shows diminished breath sounds at the bases with no wheezing or rhonchi noted. Abdomen is soft and nontender. Nervous system shows no focal deficits. Please refer to medication reconciliation sheet for a list of medications. Plan - Discharge Summary Discharge Rx Participant: No New Discharge Prescriptions: New Isosorbide Mononitrate ER [Imdur] 60 mg PO DAILY 30 Days #30 tab.er.24h Metoprolol Tartrate [Lopressor] 50 mg PO BID #60 tab Ranolazine [Ranexa] 500 mg PO Q12HR #60 tab.er.12h Thiamine [Vitamin B-1] 100 mg PO BID-W/MEALS #60 tab traZODone HCL [Desyrel] 50 mg PO HS #30 tab FLUoxetine HCL [PROzac] 30 mg PO DAILY #30 cap Continue Rosuvastatin [Crestor] 40 mg PO DAILY #90 tablet Gabapentin [Neurontin] 300 mg PO Q8H #21 cap Aspirin 81 mg PO DAILY #30 chew lisinopriL [Zestril] 10 mg PO DAILY #30 tab amLODIPine [Norvasc] 5 mg PO DAILY #30 tab Omeprazole [PriLOSEC] 40 mg PO AC-BRKFST #30 capsule. chlordiazePOXIDE HCl [Librium] 25 mg PO QID PRN 3 Days #12 capsule PRN Reason: Alcohol Withdrawal oxyCODONE HCL/ACETAMINOPHEN [Percocet 10-325 mg] 1 tab PO Q6HR #6 tab Discontinued Isosorbide Mononitrate ER [Imdur] 30 mg PO DAILY #30 tab.er.24h Metoprolol Tartrate [Lopressor] 25 mg PO BID #60 tab Thiamine [Vitamin B-1] 100 mg PO DAILY #30 tab Discharge Medication List Aspirin 81 mg PO DAILY #30 chew 08/10/20 [Rx] Gabapentin [Neurontin] 300 mg PO Q8H #21 cap 08/10/20 [Rx] Omeprazole [PriLOSEC] 40 mg PO AC-BRKFST #30 capsule. 08/10/20 [Rx] Rosuvastatin [Crestor] 40 mg PO DAILY #90 tablet 08/10/20 [Rx] amLODIPine [Norvasc] 5 mg PO DAILY #30 tab 08/10/20 [Rx] lisinopriL [Zestril] 10 mg PO DAILY #30 tab 08/10/20 [Rx] FLUoxetine HCL [PROzac] 30 mg PO DAILY #30 cap 08/30/20 [Rx] Isosorbide Mononitrate ER [Imdur] 60 mg PO DAILY 30 Days #30 tab.er.24h 08/30/20 [Rx] Metoprolol Tartrate [Lopressor] 50 mg PO BID #60 tab 08/30/20 [Rx] Ranolazine [Ranexa] 500 mg PO Q12HR #60 tab.er.12h 08/30/20 [Rx] Thiamine [Vitamin B-1] 100 mg PO BID-W/MEALS #60 tab 08/30/20 [Rx] chlordiazePOXIDE HCl [Librium] 25 mg PO QID PRN 3 Days #12 capsule 08/30/20 [Rx] oxyCODONE HCL/ACETAMINOPHEN [Percocet 10-325 mg] 1 tab PO Q6HR #6 tab 08/30/20 [Rx] traZODone HCL [Desyrel] 50 mg PO HS #30 tab 08/30/20 [Rx] Follow up Appointment(s)/Referral(s): Marybel Steinberg MD [Primary Care Provider] - 09/03/20 8:40 am Sal Savage MD [STAFF PHYSICIAN] - 2 Weeks Patient Instructions/Handouts: Chest Pain (DC), Alcohol Withdrawal (DC) Activity/Diet/Wound Care/Special Instructions: Please call Father Caz when pt is D/C or leaves. Activity Limited until follow-up Continue medications as prescribed Continue with Librium taper and avoid all alcohol intake Follow-up with primary care provider upon discharge Follow-up cardiology outpatient Follow-up community mental health for further resources and guidance on alcohol rehab Continue heart healthy diet Discharge Disposition: HOME SELF-CARE
== END 2020-08-30 14:30 | disposition home or self-care (01) | DRG 302 ==
LOC: EC 13:44 → 3SCARD 16:03
PROVIDERS: ADMIT Hospitalist; ATTEND Hospitalist
DX: I25.110 Atherosclerotic heart disease of native coronary artery with unstable angina pectoris (principal); G92 Toxic encephalopathy; F10.231 Alcohol dependence with withdrawal delirium; E87.0 Hyperosmolality and hypernatremia; I48.20 Chronic atrial fibrillation, unspecified; N39.0 Urinary tract infection, site not specified; G31.2 Degeneration of nervous system due to alcohol; K70.10 Alcoholic hepatitis without ascites; F10.229 Alcohol dependence with intoxication, unspecified; J44.9 Chronic obstructive pulmonary disease, unspecified; I25.84 Coronary atherosclerosis due to calcified coronary lesion; E78.5 Hyperlipidemia, unspecified; I10 Essential (primary) hypertension; I08.1 Rheumatic disorders of both mitral and tricuspid valves; F32.9 Major depressive disorder, single episode, unspecified; F41.9 Anxiety disorder, unspecified; G89.29 Other chronic pain; M54.2 Cervicalgia; M54.9 Dorsalgia, unspecified; R77.8 Other specified abnormalities of plasma proteins; Y90.8 Blood alcohol level of 240 mg/100 ml or more; Z71.41 Alcohol abuse counseling and surveillance of alcoholic; F17.210 Nicotine dependence, cigarettes, uncomplicated; Z71.6 Tobacco abuse counseling; Z91.19 Patient's noncompliance with other medical treatment and regimen; Z79.82 Long term (current) use of aspirin; Z79.899 Other long term (current) drug therapy; Z87.39 Personal history of other diseases of the musculoskeletal system and connective tissue; Z98.890 Other specified postprocedural states; Z82.49 Family history of ischemic heart disease and other diseases of the circulatory system; Z80.41 Family history of malignant neoplasm of ovary
CPT/HCPCS: 36415; 70450; 71046; 80048; 80053; 80061; 80320; 81001; 83735; 84484; 85025; 85610; 85730; 93005; 93306; 94760; 96361; 96374; 99285

== ENCOUNTER 2020-09-01 00:22 | Observation (INO) | payer OTHER ==
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
[2020-09-01 01:13] LABS: Basophils # (A) 0.1 k/uL (0-0.2); Basophils % (A) 1 %; Eosinophils # (A) 0.3 k/uL (0-0.7); Eosinophils % (A) 5 %; HCT 35.1 % (39.0-53.0); HGB 12.2 gm/dL (13.0-17.5); Lymphocytes # (A) 1.8 k/uL (1.0-4.8); Lymphocytes % (A) 26 %; MCH 33.4 pg (25.0-35.0); MCHC 34.7 g/dL (31.0-37.0); MCV 96.2 fL (80.0-100.0); Mean Platelet Volume 8.2; Monocytes # (A) 0.4 k/uL (0-1.0); Monocytes % (A) 5 %; Neutrophils # (A) 4.3 k/uL (1.3-7.7); Neutrophils % (A) 62 %; Platelet Count 237 k/uL (150-450); RBC 3.64 m/uL (4.30-5.90); RDW 12.2 % (11.5-15.5)
[2020-09-01 01:27] LABS: Albumin 4.5 g/dL (3.5-5.0); Calcium 10.2 mg/dL (8.4-10.2); Magnesium 1.7 mg/dL (1.6-2.3); Total Bilirubin 0.3 mg/dL (0.2-1.3); Total Protein 6.8 g/dL (6.3-8.2)
--- NOTE | 2020-09-01 01:27 | CT ---
EXAMINATION TYPE: CT brain crow tabares DATE OF EXAM: 09/01/2020 COMPARISON: 08/23/2020 HISTORY: FALL CT DLP: 1649.8 mGycm Automated exposure control for dose reduction was used. There is mild cerebral atrophy. There is no mass effect nor midline shift. There is no sign of intrac ranial hemorrhage. The calvarium is intact. Skull base is intact. There is normal aeration of the mas toid sinuses. There is mild straightening of the cervical spine. There is mild disc space narrowing at C5-6 and C6- 7 with spurring of the endplates. Facet joints are intact. Prevertebral soft tissues are intact. IMPRESSION: Mild spondylotic changes in the lower cervical spine. No fracture. No change. Mild cerebral atrophy. No acute intracranial abnormality. No change.
[2020-09-01 01:32] LABS: Partial Thromboplastin Time 22.5 sec (22.0-30.0); Prothrombin Time 10.4 sec (9.0-12.0)
--- NOTE | 2020-09-01 01:35 | XR ---
EXAMINATION TYPE: XR chest 2V DATE OF EXAM: 09/01/2020 COMPARISON: 08/26/2020 HISTORY: Chest pain TECHNIQUE: FINDINGS: Heart and mediastinum are normal. Lungs are clear. Diaphragm is normal. Bony thorax appears normal. IMPRESSION: Normal chest. No adverse change.
[2020-09-01] MEDS ORDERED: THIAMINE 100 MG/ML 2 ML VIAL IM STA (03:01)
[2020-09-01] MEDS ORDERED: LORazepam 2 MG/ML INJ IV PRN ×3 (03:01)
[2020-09-01] MEDS ORDERED: ASPIRIN 81 MG PO SCH (09:00)
[2020-09-01] MEDS ORDERED: ATORVASTATIN 80 MG TAB PO SCH (09:00)
[2020-09-01] MEDS ORDERED: amLODIPine 5 MG TAB PO SCH (09:00)
[2020-09-01] MEDS ORDERED: lisinopriL 10 MG TAB PO SCH (09:00)
[2020-09-01] MEDS ORDERED: METOPROLOL TARTRATE 50 MG TAB PO SCH (09:00)
[2020-09-01] MEDS ORDERED: ISOSORBIDE MONONITRATE ER 60 MG TAB.ER.24H PO SCH (09:00)
[2020-09-01] MEDS ORDERED: RANOLAZINE 500 MG TAB.ER.12H PO SCH (09:00)
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
[2020-09-01] MEDS ORDERED: THIAMINE 100 MG TAB PO SCH ×2 (09:45→17:30)
[2020-09-01] MEDS ORDERED: FLUoxetine HCL 10 MG CAP PO SCH (09:45)
[2020-09-01] MEDS: oxyCODONE-APAP 10-325MG 1 EACH TAB PO SCH ×2 (10:00→16:24)
[2020-09-01] MEDS ORDERED: GABAPENTIN 300 MG CAP PO SCH (10:00)
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
[2020-09-01 15:11] VITALS: BP 123/74; PULSE 78; RESP 16; TEMP 98.7
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
== END 2020-09-01 16:30 | disposition home or self-care (01) ==
LOC: EC 00:22 → 6NMEDSUR 02:54
PROVIDERS: ADMIT Hospitalist; ATTEND Hospitalist
DX: R07.89 Other chest pain (principal); F10.129 Alcohol abuse with intoxication, unspecified; I25.10 Atherosclerotic heart disease of native coronary artery without angina pectoris; I48.0 Paroxysmal atrial fibrillation; I11.9 Hypertensive heart disease without heart failure; E78.5 Hyperlipidemia, unspecified; J44.9 Chronic obstructive pulmonary disease, unspecified; F17.210 Nicotine dependence, cigarettes, uncomplicated; Z91.19 Patient's noncompliance with other medical treatment and regimen; I34.0 Nonrheumatic mitral (valve) insufficiency; I37.1 Nonrheumatic pulmonary valve insufficiency; G89.29 Other chronic pain; M54.2 Cervicalgia; M25.562 Pain in left knee; M54.9 Dorsalgia, unspecified; Y90.6 Blood alcohol level of 120-199 mg/100 ml; F32.9 Major depressive disorder, single episode, unspecified; F41.9 Anxiety disorder, unspecified; Z79.82 Long term (current) use of aspirin; Z79.899 Other long term (current) drug therapy; Z87.828 Personal history of other (healed) physical injury and trauma; Z82.49 Family history of ischemic heart disease and other diseases of the circulatory system; Z80.41 Family history of malignant neoplasm of ovary
CPT/HCPCS: 93005 ×2; 96372; 96374; 99285; 36415; 80053; 83690; 83735; 84484; 85025; 85610; 85730; 71046; 72125; 70450; G0378; G0480; J2060; J3411; 80320

== ENCOUNTER 2020-09-02 00:04 | Emergency (ER) | payer OTHER ==
[2020-09-02 00:14] VITALS: BP 109/76; PULSE 73; RESP 16; TEMP 97.4
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
== END 2020-09-02 02:00 | disposition home or self-care (01) ==
LOC: EC 00:04
DX: F10.129 Alcohol abuse with intoxication, unspecified (principal); I10 Essential (primary) hypertension; J44.9 Chronic obstructive pulmonary disease, unspecified; E78.5 Hyperlipidemia, unspecified; I48.91 Unspecified atrial fibrillation; F32.9 Major depressive disorder, single episode, unspecified; F41.9 Anxiety disorder, unspecified; F17.200 Nicotine dependence, unspecified, uncomplicated; Z79.82 Long term (current) use of aspirin; Z79.899 Other long term (current) drug therapy; Z82.49 Family history of ischemic heart disease and other diseases of the circulatory system; Y90.9 Presence of alcohol in blood, level not specified
CPT/HCPCS: 82075; 93005; 99285

== ENCOUNTER 2020-09-03 18:53 | Emergency (ER) | payer OTHER ==
[2020-09-03 19:05] VITALS: TEMP 98.9
[2020-09-03] MEDS ORDERED: FAMOTIDINE 20 MG/2 ML VIAL IV STA (20:17)
[2020-09-03] MEDS ORDERED: ASPIRIN 81 MG PO STA (20:17)
[2020-09-03] MEDS ORDERED: SODIUM CHLORIDE 0.9% 1,000 ML IV STA (20:18)
[2020-09-03 20:33] LABS: Basophils % (A) 1 %; Eosinophils # (A) 0.2 k/uL (0-0.7); Eosinophils % (A) 3 %; HCT 35.2 % (39.0-53.0); HGB 12.1 gm/dL (13.0-17.5); Lymphocytes # (A) 1.5 k/uL (1.0-4.8); Lymphocytes % (A) 30 %; MCH 32.8 pg (25.0-35.0); MCHC 34.3 g/dL (31.0-37.0); MCV 95.8 fL (80.0-100.0); Mean Platelet Volume 7.6; Monocytes # (A) 0.2 k/uL (0-1.0); Monocytes % (A) 5 %; Neutrophils % (A) 59 %; Platelet Count 289 k/uL (150-450); RBC 3.68 m/uL (4.30-5.90); RDW 12.2 % (11.5-15.5); WBC 5.1 k/uL (3.8-10.6)
[2020-09-03 20:43] LABS: INR 0.9 (<1.2); Prothrombin Time 10.1 sec (9.0-12.0)
[2020-09-03 20:47] LABS: Albumin 4.7 g/dL (3.5-5.0); Calcium 9.5 mg/dL (8.4-10.2); Magnesium 2.1 mg/dL (1.6-2.3); Potassium 4.2 mmol/L (3.5-5.1); Total Bilirubin 0.3 mg/dL (0.2-1.3); Total Protein 7.2 g/dL (6.3-8.2)
--- NOTE | 2020-09-03 21:00 | XR ---
EXAMINATION TYPE: XR chest 2V DATE OF EXAM: 09/03/2020 COMPARISON: 09/01/2020 HISTORY: Chest pain TECHNIQUE: 2 views FINDINGS: Heart and mediastinum are normal. Lungs are clear. Diaphragm is normal. Bony thorax appears normal. IMPRESSION: Normal chest. No change.
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
[2020-09-04 00:20] VITALS: BP 98/55; PULSE 74; RESP 17
[2020-09-04] MEDS ORDERED: oxyCODONE-APAP 10-325MG 1 EACH TAB PO STA (00:34)
== END 2020-09-04 01:04 | disposition home or self-care (01) ==
LOC: EC 18:53
DX: R07.89 Other chest pain (principal); F10.129 Alcohol abuse with intoxication, unspecified; J44.9 Chronic obstructive pulmonary disease, unspecified; I10 Essential (primary) hypertension; E78.5 Hyperlipidemia, unspecified; I48.91 Unspecified atrial fibrillation; F32.9 Major depressive disorder, single episode, unspecified; F41.9 Anxiety disorder, unspecified; F17.200 Nicotine dependence, unspecified, uncomplicated; Z79.82 Long term (current) use of aspirin; Y90.7 Blood alcohol level of 200-239 mg/100 ml
CPT/HCPCS: 36415; 93005; 80053; 83690; 83735; 84484; 85025; 85610; 71046; 99285; 96374; 96361 ×3; G0480; 80320

== ENCOUNTER 2020-09-06 02:22 | Emergency (ER) | payer OTHER ==
--- NOTE | 2020-09-06 03:29 | XR ---
EXAMINATION TYPE: XR chest 1V portable DATE OF EXAM: 09/06/2020 COMPARISON: 09/03/2020 HISTORY: Chest pain TECHNIQUE: Single view FINDINGS: There is no heart failure nor confluent pneumonic infiltrate. Costophrenic angles are clear . Bony thorax is intact. IMPRESSION: No active cardiopulmonary disease. No change.
[2020-09-06 03:30] LABS: Basophils % (A) 1 %; Eosinophils # (A) 0.1 k/uL (0-0.7); Eosinophils % (A) 2 %; HCT 38.8 % (39.0-53.0); HGB 13.1 gm/dL (13.0-17.5); Lymphocytes # (A) 1.7 k/uL (1.0-4.8); Lymphocytes % (A) 34 %; MCH 32.4 pg (25.0-35.0); MCHC 33.7 g/dL (31.0-37.0); MCV 96.2 fL (80.0-100.0); Mean Platelet Volume 7.4; Monocytes # (A) 0.3 k/uL (0-1.0); Monocytes % (A) 6 %; Neutrophils # (A) 2.7 k/uL (1.3-7.7); Neutrophils % (A) 54 %; Platelet Count 286 k/uL (150-450); RBC 4.03 m/uL (4.30-5.90); RDW 12.3 % (11.5-15.5)
[2020-09-06 03:48] LABS: INR 0.9 (<1.2); Prothrombin Time 10.2 sec (9.0-12.0)
[2020-09-06 04:27] LABS: Partial Thromboplastin Time 21.7 sec (22.0-30.0)
[2020-09-06 04:35] LABS: Albumin 5.1 g/dL (3.5-5.0); Calcium 10.2 mg/dL (8.4-10.2); Magnesium 2.1 mg/dL (1.6-2.3); Potassium 4.2 mmol/L (3.5-5.1); Total Bilirubin 0.4 mg/dL (0.2-1.3)
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
[2020-09-06 06:40] VITALS: RESP 16; TEMP 98.2
[2020-09-06 06:51] VITALS: BP 161/101; PULSE 76
== END 2020-09-06 07:02 | disposition home or self-care (01) ==
LOC: EC 02:22
DX: R07.2 Precordial pain (principal); F10.129 Alcohol abuse with intoxication, unspecified; F17.200 Nicotine dependence, unspecified, uncomplicated; I10 Essential (primary) hypertension; J44.9 Chronic obstructive pulmonary disease, unspecified
CPT/HCPCS: 36415; 93005; 80053; 83735; 84484; 85025; 85610; 85730; 71045; 99285; G0480; 80320

== ENCOUNTER 2020-09-07 22:13 | Emergency (ER) | payer OTHER ==
[2020-09-07 22:19] VITALS: BP 122/77; PULSE 67; RESP 20; TEMP 97.8
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
== END 2020-09-07 23:10 | disposition home or self-care (01) ==
LOC: EC 22:13
DX: F10.129 Alcohol abuse with intoxication, unspecified (principal); I10 Essential (primary) hypertension; J44.9 Chronic obstructive pulmonary disease, unspecified; F17.290 Nicotine dependence, other tobacco product, uncomplicated
CPT/HCPCS: 93005; 99284

== ENCOUNTER 2020-09-15 02:20 | Emergency (ER) | payer OTHER ==
[2020-09-15 02:28] VITALS: BP 118/73; RESP 18; TEMP 98.3
[2020-09-15 02:30] VITALS: PULSE 68
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
== END 2020-09-15 03:58 | disposition home or self-care (01) ==
LOC: EC 02:20
DX: R07.89 Other chest pain (principal); F10.10 Alcohol abuse, uncomplicated; F17.290 Nicotine dependence, other tobacco product, uncomplicated; I10 Essential (primary) hypertension; J44.9 Chronic obstructive pulmonary disease, unspecified
CPT/HCPCS: 93005; 99285

== ENCOUNTER 2020-09-22 05:02 | Emergency (ER) | payer OTHER ==
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
[2020-09-22 05:14] VITALS: RESP 18
[2020-09-22 06:09] VITALS: BP 167/96; PULSE 89; TEMP 98.2
== END 2020-09-22 05:50 | disposition home or self-care (01) ==
LOC: EC 05:02
DX: F10.129 Alcohol abuse with intoxication, unspecified (principal); R07.9 Chest pain, unspecified; F17.290 Nicotine dependence, other tobacco product, uncomplicated; I10 Essential (primary) hypertension; J44.9 Chronic obstructive pulmonary disease, unspecified; Z79.899 Other long term (current) drug therapy
CPT/HCPCS: 93005; 99285

== ENCOUNTER 2020-09-23 15:11 | Emergency (ER) | payer OTHER ==
[2020-09-23 15:36] VITALS: TEMP 98.9
[2020-09-23] MEDS ORDERED: LORazepam 2 MG/ML INJ IV STA ×2 (16:25→21:03)
[2020-09-23] MEDS ORDERED: SODIUM CHLORIDE 0.9% 1,000 ML IV STA (16:25)
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
[2020-09-23 16:48] LABS: Basophils % (A) 1 %; Eosinophils # (A) 0.1 k/uL (0-0.7); Eosinophils % (A) 2 %; HCT 41.5 % (39.0-53.0); HGB 14.3 gm/dL (13.0-17.5); Lymphocytes # (A) 1.1 k/uL (1.0-4.8); Lymphocytes % (A) 23 %; MCH 33.4 pg (25.0-35.0); MCHC 34.5 g/dL (31.0-37.0); MCV 96.8 fL (80.0-100.0); Mean Platelet Volume 7.2; Monocytes # (A) 0.2 k/uL (0-1.0); Monocytes % (A) 5 %; Neutrophils # (A) 3.5 k/uL (1.3-7.7); Neutrophils % (A) 69 %; Platelet Count 255 k/uL (150-450); RBC 4.29 m/uL (4.30-5.90); RDW 13.7 % (11.5-15.5)
[2020-09-23 16:59] LABS: ALT 24 U/L (4-49); AST 57 U/L (17-59); African American GFR (CKD) >90 (>60 ml/min/1.73 sqM); Albumin 4.9 g/dL (3.5-5.0); Alkaline Phosphatase 73 U/L (38-126); Anion Gap 13 mmol/L; Blood Urea Nitrogen 6 mg/dL (9-20); Calcium 9.8 mg/dL (8.4-10.2); Carbon Dioxide 23 mmol/L (22-30); Chloride 112 mmol/L (98-107); Glucose 115 mg/dL (74-99); Magnesium 1.6 mg/dL (1.6-2.3); Non-African American GFR(CKD) >90 (>60 ml/min/1.73 sqM); Potassium 3.9 mmol/L (3.5-5.1); Sodium 148 mmol/L (137-145); Total Bilirubin 0.4 mg/dL (0.2-1.3); Total Protein 7.6 g/dL (6.3-8.2)
[2020-09-23] MEDS ORDERED: oxyCODONE-APAP 5-325MG 1 EACH TAB PO STA (17:10)
[2020-09-23 18:32] LABS: Amphetamine Screen,Urine Not Detected (NotDetected); Barbiturate Screen,Urine Not Detected (NotDetected); Benzodiazepines Screen,Urine Detected (NotDetected); Cocaine Screen,Urine Not Detected (NotDetected); Methadone Screen, Urine Not Detected (NotDetected); Opiate Screen,Urine Not Detected (NotDetected); Oxycodone Screen, Urine Not Detected (NotDetected); Phencyclidine Screen,Urine Not Detected (NotDetected); Tricyclic Antidepressant,Urine Not Detected (NotDetected); Urn Cannabinoid Scrn Not Detected (NotDetected)
[2020-09-24 03:23] VITALS: RESP 18
[2020-09-24 06:43] VITALS: BP 189/106; PULSE 100
== END 2020-09-24 06:44 | disposition home or self-care (01) ==
LOC: EC 15:11
DX: F10.129 Alcohol abuse with intoxication, unspecified (principal); F17.290 Nicotine dependence, other tobacco product, uncomplicated; I10 Essential (primary) hypertension; J44.9 Chronic obstructive pulmonary disease, unspecified
CPT/HCPCS: 82075 ×2; 36415; 80053; 83735; 85025; 80306; 99284; 96374 ×2; 96361; G0480; J2060; 80320

== ENCOUNTER → 2021-01-03 | Outpatient (CLI) | payer OTHER ==
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
[2021-01-03 12:53] VITALS: BP 181/84; PULSE 78; RESP 18; TEMP 98.7
== END ==
LOC: PNWHC3 12:16
PROVIDERS: ATTEND Student in an Organized Health Care Education/Training Program
DX: M47.816 Spondylosis without myelopathy or radiculopathy, lumbar region (principal); M47.812 Spondylosis without myelopathy or radiculopathy, cervical region; I48.91 Unspecified atrial fibrillation; J44.9 Chronic obstructive pulmonary disease, unspecified; E78.5 Hyperlipidemia, unspecified; I10 Essential (primary) hypertension; F17.290 Nicotine dependence, other tobacco product, uncomplicated; Z79.82 Long term (current) use of aspirin; Z79.899 Other long term (current) drug therapy
CPT/HCPCS: 99211

== ENCOUNTER 2021-01-21 15:41 | Emergency (ER) | payer OTHER ==
[2021-01-21 15:52] VITALS: BP 144/89; PULSE 72; RESP 20; TEMP 97.9
[2021-01-21 16:22] LABS: Basophils # (A) 0.1 k/uL (0-0.2); Basophils % (A) 1 %; Eosinophils # (A) 0.2 k/uL (0-0.7); Eosinophils % (A) 3 %; HCT 42.4 % (39.0-53.0); HGB 14.2 gm/dL (13.0-17.5); Lymphocytes # (A) 1.6 k/uL (1.0-4.8); Lymphocytes % (A) 21 %; MCH 31.3 pg (25.0-35.0); MCHC 33.4 g/dL (31.0-37.0); MCV 93.8 fL (80.0-100.0); Mean Platelet Volume 7.4; Monocytes # (A) 0.5 k/uL (0-1.0); Monocytes % (A) 6 %; Neutrophils # (A) 4.9 k/uL (1.3-7.7); Neutrophils % (A) 67 %; Platelet Count 248 k/uL (150-450); RBC 4.52 m/uL (4.30-5.90); RDW 13.6 % (11.5-15.5); WBC 7.4 k/uL (3.8-10.6)
[2021-01-21 16:31] LABS: ALT 18 U/L (4-49); AST 27 U/L (17-59); African American GFR (CKD) >90 (>60 ml/min/1.73 sqM); Albumin 4.7 g/dL (3.5-5.0); Alkaline Phosphatase 35 U/L (38-126); Anion Gap 8 mmol/L; Blood Urea Nitrogen 15 mg/dL (9-20); Carbon Dioxide 26 mmol/L (22-30); Chloride 106 mmol/L (98-107); Glucose 95 mg/dL (74-99); Magnesium 1.7 mg/dL (1.6-2.3); Non-African American GFR(CKD) 84 (>60 ml/min/1.73 sqM); Potassium 4.5 mmol/L (3.5-5.1); Sodium 140 mmol/L (137-145); Total Bilirubin 0.5 mg/dL (0.2-1.3); Total Protein 7.4 g/dL (6.3-8.2)
[2021-01-21 16:32] LABS: INR 0.9 (<1.2); Partial Thromboplastin Time 23.7 sec (22.0-30.0); Prothrombin Time 10.1 sec (9.0-12.0)
== END 2021-01-21 17:24 | disposition left against medical advice (07) ==
LOC: EC 15:41
DX: R07.9 Chest pain, unspecified (principal); Z53.21 Procedure and treatment not carried out due to patient leaving prior to being seen by health care provider
CPT/HCPCS: 36415; 80053; 83735; 84484; 85025; 85610; 85730; 93005; 99499

== ENCOUNTER → 2021-03-03 | Day surgery (SDC) | payer OTHER ==
[2021-02-25 11:06] VITALS: BMI 33.4
[~2021-03-03] MED LIST: ALPRAZolam 0.25 MG TAB PO PRN; ALPRAZolam 0.5 MG TAB PO PRN; ASPIRIN 325 MG TAB PO STA; NITROGLYCERIN SL TABS 0.4 MG TAB SUBLINGUAL PRN; SODIUM CHLORIDE 0.9% 1,000 ML in EMPTY BAG 1 BAG IV SCH
[2021-03-03 06:56] VITALS: BP 125/75; PULSE 56; RESP 18; TEMP 98.1
[2021-03-03 06:58] LABS: Basophils # (A) 0.1 k/uL (0-0.2); Basophils % (A) 1 %; Eosinophils # (A) 0.3 k/uL (0-0.7); Eosinophils % (A) 4 %; HCT 39.4 % (39.0-53.0); HGB 13.5 gm/dL (13.0-17.5); Lymphocytes # (A) 1.7 k/uL (1.0-4.8); Lymphocytes % (A) 24 %; MCH 30.3 pg (25.0-35.0); MCHC 34.3 g/dL (31.0-37.0); Mean Platelet Volume 7.6; Monocytes # (A) 0.5 k/uL (0-1.0); Monocytes % (A) 7 %; Neutrophils # (A) 4.5 k/uL (1.3-7.7); Neutrophils % (A) 63 %; Platelet Count 267 k/uL (150-450); RBC 4.46 m/uL (4.30-5.90); RDW 12.8 % (11.5-15.5); WBC 7.1 k/uL (3.8-10.6)
[2021-03-03 06:59] LABS: MCV 88.4 fL (80.0-100.0)
[2021-03-03 07:22] LABS: African American GFR (CKD) >90 (>60 ml/min/1.73 sqM); Anion Gap 9 mmol/L; Blood Urea Nitrogen 12 mg/dL (9-20); Calcium 9.7 mg/dL (8.4-10.2); Carbon Dioxide 25 mmol/L (22-30); Chloride 108 mmol/L (98-107); Glucose 89 mg/dL (74-99); Non-African American GFR(CKD) 87 (>60 ml/min/1.73 sqM); Potassium 3.8 mmol/L (3.5-5.1); Sodium 142 mmol/L (137-145)
== END ==
LOC: CATHCVL 06:16
PROVIDERS: ATTEND Internal Medicine Interventional Cardiology
DX: I25.10 Atherosclerotic heart disease of native coronary artery without angina pectoris (principal); I10 Essential (primary) hypertension; U07.1 COVID-19; E78.5 Hyperlipidemia, unspecified; Z82.49 Family history of ischemic heart disease and other diseases of the circulatory system; F17.210 Nicotine dependence, cigarettes, uncomplicated; Z79.899 Other long term (current) drug therapy; Z79.82 Long term (current) use of aspirin; Z53.9 Procedure and treatment not carried out, unspecified reason
CPT/HCPCS: 80048; 85025; 87635

== ENCOUNTER → 2021-03-17 | Day surgery (SDC) | payer OTHER ==
[2021-03-16 08:47] VITALS: BMI 34.4
[~2021-03-17] MED LIST changes: +HEPARIN SODIUM 1,000 UN/ML (10ML VL) IV ONE; +HEPARIN SODIUM 1,000 UN/ML (10ML VL) ONE; +IOPAMIDOL-370 125ML BTL INJ ONE; +LIDOCAINE 1% INJ 10MG/ML (20 ML MDV) ONE; +LIDOCAINE 1% INJ 10MG/ML (20 ML MDV) SQ ONE; +MIDAZOLAM 2 MG/2 ML VIAL IVP ONE; -NITROGLYCERIN SL TABS 0.4 MG TAB SUBLINGUAL PRN; +RX INFO: IV CONTRAST WAS GIVEN 1 EACH MISC MISCELLANE PRN; +SODIUM CHLORIDE 0.9% 1,000 ML IV SCH; +VERAPAMIL 2.5 MG/ML 2 ML AMP ONE; +fentaNYL (PF) 50 MCG/ML 2 ML AMP IVP ONE; +fentaNYL (PF) 50 MCG/ML 2 ML AMP ONE; +oxyCODONE-APAP 10-325MG 1 EACH TAB PO STA
[2021-03-17 11:28] VITALS: TEMP 99
[2021-03-17] MEDS: VERAPAMIL SYRINGE (5 MG/10 ML) INTRAARTER ONE ×2 (12:43→12:56)
--- NOTE | 2021-03-17 13:13 | P.PCN ---
Date of Procedure: 03/17/21 Operative Findings: CARDIAC CATHETERIZATION PERFORMING PHYSICIAN: Sal Savage MD, RPVI PROCEDURE PERFORMED: 1. Selective right and left coronary angiogram 2. Left heart catheterization INDICATION: The patient is a pleasant 55-year-old gentleman with known coronary artery disease involving the distal left main was investigated back in August 2020 with GEORGE which showed an area stenosis of 45% and that point maximize medical treatment was advised. The patient did well until recently when he started experiencing chest discomfort and shortness of breath with exertion concerning for angina. COMPLICATION: None APPROACH: Right radial artery LEVEL OF SEDATION: Moderate with a sedation length of 20 minutes PROCEDURE DESCRIPTION: After obtaining an informed consent, the patient was brought to cardiac research laboratory specialist. Local anesthesia was performed using lidocaine subcutaneously. The right radial artery was cannulated using Seldinger technique, the guidewire passed easily, following that we advanced a 5-Polish sheath dilator assembly, the wire and dilator were removed and sheath was flushed. Following that, 2 mg of verapamil along with 5000 unit heparin were given. Selective right and left coronary angiogram using a 6-Polish JR4 and JL 3.5 catheters. Following that we did left heart catheterization using 6-Polish pigtail catheter. The procedure was completed there was no complication. SELECTIVE CORONARY ANGIOGRAM: The right coronary artery: The RCA is extremely calcified. Is a large caliber vessel ansa dominant vessel. The proximal RCA has tubular lesion appeared to be in the range of 50%. The mid RCA has 2 lesions seems to be in the range of 70%. The RCA distally appeared to have mild to moderate diffuse disease and bifurcates into PDA and PLV branches both appears to have mild to moderate diffuse disease. Left main: Is calcified. The distal left main appears to have distal lesion in the range of 50-60%. Appeared to be slightly worse compared to before. The left main bifurcates into LCx and LAD The left circumflex: Is a large caliber vessel and nondominant vessel. The left circumflex is also extremely calcified with diffuse disease up to about 50%. Gives rises into a large OM branch which trifurcates branches and the branches appeared to be disease in the yezq-[id number]-[id number] range. The ostial left circumflex itself appears to be concerning for the lesion in the range of 50%. The left anterior descending artery: The ostial LAD is calcified was a lesion appeared to be in the range of 70%. The proximal LAD has another lesion appears to be in the range of percent by the bifurcation of a large diagonal branch which appeared to have mild disease only. The mid and distal LAD appears to have mild disease only. HEMODYNAMICS: The LVEDP was about 12 mmHg without significant gradient across aortic valve CONCLUSION: 1. Extremely calcified right and left coronary system 2. Severe complex lesion involving the distal left main appeared to be in the range of 50% at least and involving also the ostial of the LAD and LCx 3. Normal left-sided filling pressure POSTPROCEDURE MANAGEMENT: Advised the patient to be seen by cardiothoracic surgeon for evaluation of coronary artery bypass grafting
[2021-03-17 14:50] VITALS: PULSE 77; RESP 16
[2021-03-17 16:55] VITALS: BP 158/94
== END ==
LOC: CATHCVL 10:46
PROVIDERS: ATTEND Internal Medicine Interventional Cardiology
DX: I25.10 Atherosclerotic heart disease of native coronary artery without angina pectoris (principal); Z20.822 Contact with and (suspected) exposure to COVID-19
CPT/HCPCS: 93458; 87635; C1894; J2250; J2001; J3010; J1644; Q9967

== ENCOUNTER → 2021-04-07 | Outpatient (CLI) | payer OTHER ==
[2021-04-07 13:48] LABS: INR 0.9 (<1.2); Partial Thromboplastin Time 23.5 sec (22.0-30.0); Prothrombin Time 10.3 sec (9.0-12.0)
--- NOTE | 2021-04-07 16:15 | XR ---
EXAMINATION TYPE: XR chest 2V DATE OF EXAM: 04/07/2021 COMPARISON: 09/06/2020 HISTORY: 55-year-old male preop clearance, presurgical testing. TECHNIQUE: Frontal and lateral views FINDINGS: The cardiomediastinal silhouette, aorta, and pulmonary vasculature are within normal limits. Mild hyp erinflation. Lungs and pleural spaces are clear. IMPRESSION: Mild hyperinflation may relate to depth of inspiration or mild underlying emphysema. Clinically corre late. No acute cardiopulmonary process.
[2021-04-07 18:05] LABS: HCT 40.2 % (39.6-50.0); HGB 13.7 g/dL (13.0-17.0); MCH 29.3 pg (27.0-32.0); MCHC 34.1 g/dL (32.0-37.0); MCV 86.1 fL (80.0-97.0); Mean Platelet Volume 9.9 fL (9.5-12.2); NRBC Per 100 WBC 0 /100 WBCS (0.0-0.0); Platelet Count 267 X 10*3/uL (140-440); RBC 4.67 X 10*6/uL (4.40-5.60); RDW 12.2 % (11.5-14.5); WBC 7.36 X 10*3/uL (4.50-10.00)
[2021-04-07 19:09] LABS: Hepatitis A Antibody IgM Nonreactive (Nonreactive); Hepatitis B Core IgM Nonreactive (Nonreactive); Hepatitis B Surface Antigen Nonreactive (Nonreactive); Hepatitis C IgG Antibody Nonreactive (Nonreactive)
[2021-04-07 19:15] LABS: ALT 19 U/L (10-49); AST 21 U/L (14-35); African American GFR (CKD) 88.4 (60.0-200.0); Albumin 5.3 g/dL (3.8-4.9); Albumin/Globulin Ratio 2.48 (1.60-3.17); Alkaline Phosphatase 42 U/L (41-126); BUN/Creat Ratio 16.36 Ratio (12.00-20.00); Calcium 10.1 mg/dL (8.7-10.3); Carbon Dioxide 22.5 mmol/L (20.0-27.5); Chloride 102 mmol/L (96-109); Chol/HDL Ratio 3.83 Ratio; Globulin 2.1 g/dL (1.6-3.3); Glucose 104 mg/dL (70-110); LDL Cholesterol,Calculated 82.9 mg/dL (0.0-131.0); Magnesium 1.9 mg/dL (1.5-2.4); Non-African American GFR(CKD) 76.2 (60.0-200.0); Potassium 4.6 mmol/L (3.5-5.5); Sodium 138 mmol/L (135-145); Total Protein 7.4 g/dL (6.2-8.2)
[2021-04-07 21:34] LABS: Appearance,Urine Clear (Clear); Bacteria,Urine None Seen /HPF (None Seen); Bilirubin,Urine Small (Negative); Blood,Urine Negative (Negative); Color,Urine Dark Yellow (Yellow); Ketones,Urine Trace mg/dL (Negative); Leukocyte Esterase,Urine Trace (Negative); Nitrite,Urine Negative (Negative); Protein,Urine Negative (Negative); RBC,Urine 0-2 /HPF (0-2); Specific Gravity,Urine 1.023 (1.001-1.030); WBC,Urine 0-5 /HPF (0-5)
== END | disposition home or self-care (01) ==
LOC: LABPAT 12:59
PROVIDERS: ATTEND Thoracic Surgery (Cardiothoracic Vascular Surgery)
DX: Z01.812 Encounter for preprocedural laboratory examination (principal); I25.10 Atherosclerotic heart disease of native coronary artery without angina pectoris; R91.8 Other nonspecific abnormal finding of lung field
CPT/HCPCS: 36415; 71046; 80053; 80061; 80074; 81001; 83036; 83735; 84443; 85027; 85610; 85730; 87070; 87086

== ENCOUNTER 2021-04-14 05:33 | Inpatient (IN) | payer OTHER ==
[~2021-04-14 05:33] MED LIST changes: +ALBUMIN HUMAN 25% 50 ML IV ONE; +ALBUMIN HUMAN 5% 500 ML IVPB ONE; -ALPRAZolam 0.25 MG TAB PO PRN; -ALPRAZolam 0.5 MG TAB PO PRN; +ASPIRIN 325 MG TAB PO ONE; -ASPIRIN 325 MG TAB PO STA; +ATORVASTATIN 10 MG TAB PO ONE; +CALCIUM CHLORIDE 100 MG/ML 10 ML SYRINGE IV ONE; +CARDIOPLEGIC SOLN (K+ 16 MEQ/L 1,000 ML with SODIUM BICARB (1 MEQ/ML) 20 ML, LIDOCAINE ... PERFUSION ONE; +CHLORHEXIDINE GLUCONATE 15 ML CUP MUCOUS MEM ONE; +CLEVIDIPINE BUTYRATE 25 MG in EMPTY BAG 1 BAG IV ONE; +DILTIAZEM 125 MG in SODIUM CHLORIDE 0.9% 100 ML IV ONE; -HEPARIN SODIUM 1,000 UN/ML (10ML VL) ONE; +HEPARIN SODIUM,PORCINE 5,000 UNIT in SODIUM CHLORIDE 0.9% 500 ML 500 ML IV ONE; +INSULIN REGULAR 100 UNIT in SODIUM CHLORIDE 0.9% 100 ML IV ONE; -IOPAMIDOL-370 125ML BTL INJ ONE; +LACTATED RINGERS 1,000 ML IV ONE; -LIDOCAINE 1% INJ 10MG/ML (20 ML MDV) ONE; -LIDOCAINE 1% INJ 10MG/ML (20 ML MDV) SQ ONE; +MAGNESIUM SULFATE 16.24 MEQ in EMPTY SYRINGE 1 SYR IV ONE; +MANNITOL 25% 12.5 GM/50 ML VIAL IV ONE; +METOPROLOL TARTRATE 12.5 MG TAB PO ONE; -MIDAZOLAM 2 MG/2 ML VIAL IVP ONE; +NITROGLYCERIN SL TABS 0.4 MG TAB SUBLINGUAL ONE; +NITROGLYCERIN-D5W PMX 25 MG/250 ML BTL IV ONE; +NITROGLYCERIN-D5W PMX 50 MG in DEXTROSE/WATER 1 250ML.BAG IV ONE; +NOREPINEPHRINE 4 MG in SODIUM CHLORIDE 0.9% 250 ML IV ONE; +PAPAVERINE 360 MG in SODIUM CHLORIDE 0.9% 90 ML IV ONE; +PHENYLEPHRINE 10 MG/ML VIAL IV ONE; +PHENYLEPHRINE 40 MG in SODIUM CHLORIDE 0.9% 250 ML IV ONE; +PROTAMINE SULFATE 10 MG/ML 25 ML VIAL IV ONE; +PROTAMINE SULFATE 250 MG in EMPTY BAG 1 BAG IV ONE; -RX INFO: IV CONTRAST WAS GIVEN 1 EACH MISC MISCELLANE PRN; +SODIUM BICARB 8.4% 50 ML SYR (1 MEQ/ML) IV ONE; +SODIUM CHLORIDE 0.9% 1,000 ML IV ONE; -SODIUM CHLORIDE 0.9% 1,000 ML IV SCH; -SODIUM CHLORIDE 0.9% 1,000 ML in EMPTY BAG 1 BAG IV SCH; +TRANEXAMIC ACID 2,000 MG in SODIUM CHLORIDE 0.9% 80 ML IV ONE; -VERAPAMIL 2.5 MG/ML 2 ML AMP ONE; +ceFAZolin 1,000 MG in SODIUM CHLORIDE 0.9% IRRIGATIO 1,000 ML IRRIGATION ONE; -fentaNYL (PF) 50 MCG/ML 2 ML AMP IVP ONE; -fentaNYL (PF) 50 MCG/ML 2 ML AMP ONE; -oxyCODONE-APAP 10-325MG 1 EACH TAB PO STA; +propofoL 1,000 MG/100 ML VIAL IV ONE
[2021-04-14 06:22] LABS: Glucose,Whole Blood 98 mg/dL (75-99)
[2021-04-14] MEDS ORDERED: PROTAMINE SULFATE 10 MG/ML 5 ML VIAL IV ONE (07:49)
[2021-04-14] MEDS ORDERED: PHENYLEPHRINE-0.9% NACL SYG 1,000 MCG/10 ML SYRINGE ONE (07:49)
[2021-04-14] MEDS ORDERED: SUCCINYLCHOLINE CHLORIDE 100 MG/5 ML SYR IV ONE (07:49)
[2021-04-14] MEDS ORDERED: NITROGLYCERIN-D5W PMX 50 MG/250 ML BOTTLE IV ONE (07:49)
[2021-04-14] MEDS ORDERED: VECURONIUM 10 MG VIAL IV ONE (07:49)
[2021-04-14] MEDS ORDERED: AMIODARONE 50 MG/ML 3 ML VIAL IV ONE (07:49)
[2021-04-14] MEDS ORDERED: SODIUM CHLORIDE 0.9% IRRIG 1,000 ML BTL IRRIGATION ONE (07:49)
[2021-04-14] MEDS ORDERED: MIDAZOLAM 1 MG/ML 5 ML VIAL ONE (07:49)
[2021-04-14] MEDS ORDERED: SODIUM CHLORIDE 0.9% 100 ML BAG ONE (07:49)
[2021-04-14] MEDS ORDERED: MIDAZOLAM 2 MG/2 ML VIAL ONE (07:49)
[2021-04-14] MEDS ORDERED: PROPOFOL 10 MG/ML 20 ML VIAL IV ONE (07:49)
[2021-04-14] MEDS ORDERED: ALBUMIN HUMAN 5% (25gm) 500 ML VIAL IVPB ONE (07:49)
[2021-04-14] MEDS ORDERED: ceFAZolin 1,000 MG VIAL ONE (07:49)
[2021-04-14] MEDS ORDERED: HEPARIN SODIUM,PORCINE 10,000 UNIT/ML 1 ML VIAL ONE (07:49)
[2021-04-14] MEDS ORDERED: fentaNYL (PF) 50 MCG/ML 50 ML VIAL ONE (07:49)
--- NOTE | 2021-04-14 08:08 | P.ANPRN ---
Procedure Note - Anesthesia - Invasive Line Right Central Line Time Out Performed: Yes ([id number]) Date of Procedure: 04/14/21 Time of Procedure: 07:31 Preparation: Sterile Prep Arterial Line Location: Radial Ultrasound Used: Yes Purpose - Visualization and Identification of Vasculature: Yes Needle Guage: 18g Image Stored and Saved: Yes Narrative: Central line placement per sterile protocol utilized. +local +angio +cvp +jwire +uneventful dilation and introduction right IJ cordis
--- NOTE | 2021-04-14 08:09 | P.ANPRN ---
Procedure Note - Anesthesia - Invasive Line [place] Kannan Time Out Performed: Yes Date of Procedure: 04/14/21 Time of Procedure: 07:45 Location of Patient: Phase I Preparation: Sterile Prep, Sterile Dressing Arterial Line Location: Radial Ultrasound Used: No Purpose - Visualization and Identification of Vasculature: No Image Stored and Saved: No Narrative: Central line placement per sterile protocol utilized. swan floanted in sheath sterily to pa wedge at 53cm in one attempt. Balloon down and w/d to 48cm. PA waveform. Secured.
[2021-04-14 08:36] LABS: ABG Base Excess -0.9 mmol/L; ABG Glucose Whole Blood 107 mg/dL (75-99); ABG HCO3 25 mmol/L (21-25); ABG Hematocrit 38 % (34.0-46.0); ABG Lactic Acid Whole Blood 0.5 mmol/L (0.5-1.6); ABG Oxygen Saturation 98.5 % (94-97); ABG PCO2 48 mmHg (35-45); ABG PH 7.33 (7.35-7.45); ABG PO2 133 mmHg (83-108); ABG Potassium Whole Blood 4.8 mmol/L (3.4-4.5); ABG Sodium Whole Blood 138 mmol/L (135-146); ABG TCO2 27 mmol/L (19-24)
[2021-04-14] MEDS ORDERED: SODIUM CHLORIDE 0.9% 500 ML 500 ML with HEPARIN SODIUM,PORCINE 5,000 UNIT IV ONE ×2 (09:31)
[2021-04-14] MEDS ORDERED: ceFAZolin 1,000 MG in SODIUM CHLORIDE 0.9% 1,000 ML IRRIGATION ONE (09:32)
[2021-04-14] MEDS ORDERED: PAPAVERINE 360 MG in SODIUM CHLORIDE 0.9% 90 ML IV ONE (09:32)
[2021-04-14 10:23] LABS: ABG Base Excess -1.3 mmol/L; ABG Glucose Whole Blood 109 mg/dL (75-99); ABG HCO3 23 mmol/L (21-25); ABG Hematocrit 36 % (34.0-46.0); ABG Ionized Calcium 4.8 mg/dL (4.5-5.3); ABG Lactic Acid Whole Blood 0.6 mmol/L (0.5-1.6); ABG Oxygen Saturation 98.7 % (94-97); ABG PCO2 37 mmHg (35-45); ABG PO2 128 mmHg (83-108); ABG Potassium Whole Blood 4.8 mmol/L (3.4-4.5); ABG Sodium Whole Blood 137 mmol/L (135-146); ABG TCO2 24 mmol/L (19-24)
[2021-04-14 11:19] LABS: ABG Base Excess -2.4 mmol/L; ABG Glucose Whole Blood 106 mg/dL (75-99); ABG HCO3 22 mmol/L (21-25); ABG Hematocrit 31 % (34.0-46.0); ABG Ionized Calcium 4.6 mg/dL (4.5-5.3); ABG Lactic Acid Whole Blood 0.8 mmol/L (0.5-1.6); ABG Oxygen Saturation 98.6 % (94-97); ABG PCO2 38 mmHg (35-45); ABG PH 7.38 (7.35-7.45); ABG PO2 119 mmHg (83-108); ABG Potassium Whole Blood 4.8 mmol/L (3.4-4.5); ABG Sodium Whole Blood 138 mmol/L (135-146); ABG TCO2 24 mmol/L (19-24)
[2021-04-14 11:54] LABS: ABG Base Excess -2.6 mmol/L; ABG Glucose Whole Blood 107 mg/dL (75-99); ABG HCO3 22 mmol/L (21-25); ABG Hematocrit 31 % (34.0-46.0); ABG Ionized Calcium 4.6 mg/dL (4.5-5.3); ABG Lactic Acid Whole Blood 0.9 mmol/L (0.5-1.6); ABG Oxygen Saturation 98.4 % (94-97); ABG PCO2 35 mmHg (35-45); ABG PO2 114 mmHg (83-108); ABG Potassium Whole Blood 4.6 mmol/L (3.4-4.5); ABG Sodium Whole Blood 138 mmol/L (135-146); ABG TCO2 23 mmol/L (19-24)
[2021-04-14] MEDS ORDERED: NITROGLYCERIN-D5W PMX 50 MG in DEXTROSE/WATER 1 250ML.BAG IV SCH (13:45)
[2021-04-14] MEDS ORDERED: BENZOCAINE/MENTHOL LOZENG 1 EACH LOZENGE MUCOUS MEM PRN (13:45)
[2021-04-14] MEDS ORDERED: METOCLOPRAMIDE 5 MG/ML 2 ML VIAL IVP PRN (13:45)
[2021-04-14] MEDS ORDERED: DEXTROSE 5% IN WATER 100 ML with AMIODARONE 150 MG IV PRN (13:45)
[2021-04-14] MEDS ORDERED: hydrALAZINE HCL 20 MG/ML 1 ML VIAL IVP PRN (13:45)
[2021-04-14] MEDS ORDERED: INSULIN REGULAR 100 UNIT in SODIUM CHLORIDE 0.9% 100 ML IV SCH (13:45)
[2021-04-14] MEDS ORDERED: CLEVIDIPINE BUTYRATE 25 MG in EMPTY BAG 1 BAG IV SCH (13:45)
[2021-04-14] MEDS ORDERED: Magnesium Replacement Protocol 1 EACH MISC MISCELLANE PRN (13:45)
[2021-04-14] MEDS ORDERED: ONDANSETRON 4 MG/2 ML VIAL IVP PRN (13:45)
[2021-04-14] MEDS ORDERED: DEXMEDETOMIDINE/0.9% NACL(PMX) 400 MCG in EMPTY BAG 1 BAG IV SCH (13:45)
[2021-04-14] MEDS ORDERED: Potassium Replacement Protocol 1 EACH MISC MISCELLANE PRN (13:45)
[2021-04-14] MEDS ORDERED: IPRATROPIUM-ALBUTEROL 3 ML NEB INHALATION PRN (13:45)
[2021-04-14] MEDS ORDERED: Phosphorus Replacement Protoco 1 EACH MISC MISCELLANE PRN (13:45)
[2021-04-14] MEDS ORDERED: DILTIAZEM 125 MG in SODIUM CHLORIDE 0.9% 100 ML IV SCH (13:45)
--- NOTE | 2021-04-14 13:50 | P.OP ---
Date of Procedure: 04/14/21 Preoperative Diagnosis: Coronary artery disease, paroxysmal atrial fibrillation Postoperative Diagnosis: Same Procedure(s) Performed: Off-pump CABG 4 with sequential AZUL to diagonal and LAD, left radial artery T graft off AZUL to obtuse marginal, saphenous vein graft to PDA with endovascular vein harvest, Endo radial harvest, bilateral pulmonary vein ablation, occlusion of the left atrial appendage with a 35 mm AtriCure clip, epi-aortic ultrasound, INES by anesthesia Implants: 35 mm AtriCure clip Anesthesia: MOISE Surgeon: Marcelo Espinoza Multiple Knife Edge Trimmer Operator #1: Mikey Huynh Multiple Knife Edge Trimmer Operator #2: Jeronimo Ahumada Estimated Blood Loss (ml): 250 IV fluids (ml): 2,500 Urine output (ml): 300 Pathology: none sent Condition: stable Disposition: ICU Indications for Procedure: 55-year-old male with stable angina pectoris, history of paroxysmal atrial fibrillation and three-vessel coronary artery disease by cardiac catheterization Operative Findings: INES showed normal ventricular function with trivial valvular heart disease. Patient was initially in sinus rhythm but had a couple of episodes of atrial fibrillation during manipulation of the atria. Good conduits. Diffuse coronary artery disease. Description of Procedure: The patient was brought to the operating room, placed supine on the operating table, anesthetized and intubated. [place]-K[place]an catheter and right radial arterial line of been placed in the preop holding area. General anesthesia was induced and INES probe was placed. Anterior torso bilateral lower extremities and left upper extremity were sterilely prepped and draped. Left radial artery was harvested by endovascular harvest technique by Mr. Jensen 2. Left greater saphenous vein was harvested from below the knee to the groin using endovascular harvest technique by Mr. Ahumada. Simultaneous to the conduit harvest midline sternotomy was performed. Left hemisternum was retracted upwards. The left internal mammary artery was harvested on a vascularized pedicle, left intact on its origin from the subclavian and divided distally. It was a good conduit. The left pleural space was drained with 32-St Lucian chest tube. Standard sternal retractor was placed. The pericardium was opened in the midline. Heart was exposed with pericardial sutures. The patient was systemically heparinized. Dissection was carried out around the right-sided pulmonary veins and the left atrium was ablated at the entry of the right-sided pulmonary veins with 3 parallel lines using the AtriCure clamp. Following this the left pulmonary veins were exposed and the ligament of Felice was taken down with electrocautery. The veins were encircled and 3 parallel lines were performed across the left atrium at the insertion of the left pulmonary veins with the AtriCure clamp. The base of the left atrial appendage was partially dissected out and freed and a 35 mm AtriCure clip was placed at the very base of the left atrial appendage. The patient had a couple of episodes of atrial fibrillation during manipulation of the atrium for the pulmonary vein ablation. The first was self-limited but the second required electrical cardioversion. Conduits were prepared on the back table. The arm was closed with Vicryl suture and dressed and tucked at the side. The left internal mammary artery was tunneled into the pericardial space. We began with a [id number] anastomosis between the AZUL and the diagonal. The diagonal was a 1.5 mm vessel with some moderate diffuse disease. It was opened fairly proximally and a [id number] anastomosis performed with running 7-0 Prolene suture. A 1.5 mm flow through was used to occlude the flow blood during the procedure and was removed on completion of the anastomosis effectively probing the proximal distal portion of the anastomosis. Suture was tied with good result and hemostasis. Good backbleeding was noted at the end of the AZUL. This augmented with removal of the bulldog clamp and the bulldog clamp was placed distal to the diagonal [id number] anastomosis. The JAMES pedicle was tacked surrounding epicardium with 6-0 silk suture. Internal mammary artery was stabilized. It was grafted in the distal portion of the middle third of the vessel. Was opened and blood flow control the 1.5 mm flow through. It was a 1.75 mm vessel with diffuse disease present. Anastomosis was constructed between the AZUL and the LAD in end-to-side fashion with running 8-0 Prolene suture. On completion anastomosis the flow through was removed effectively probing the proximal distal portion anastomosis. Suture was tied with good result and hemostasis. Inflow was open and the blood filled well. The graft lay well with no kinking and good length. There was no tension on the graft. The JAMES pedicle was tacked surrounding surrounding epicardium with 6-0 silk sutures. Next the inferior wall the heart was exposed. Posterior descending was a 1.5-1.75 mm vessel. It had diffuse disease present. It was grafted fairly proximally were had a nice soft spot. Posterior lateral branches of the right coronary artery were very small. End-to-side anastomosis between the saphenous vein and the posterior descending coronary artery was constructed with 7-0 Prolene suture. The artery was opened and blood flow control with a 1.5 mm flow through. On completion anastomosis flow through was removed 50 probe the proximal distal portion anastomosis. Suture was tied with good resultant hemostasis. Good backbleeding was noted and the vein to the first lala ve. The heart was lowered into anatomic position and the vein cut to appropriately to reach the ascending aorta. Backbleeding was controlled with bulldog clamp. Epi-aortic ultrasonography was performed and there was minimal disease in the ascending aorta. Next we proceeded to the lateral wall. The major marginal branch was just past the obtuse margin of the heart. This was a good size vessel. It was stabilized and opened and blood flow control with a 1.5 mm flow through. I 1.75 mm lumen. End-to-side anastomosis between the radial artery and the obtuse marginal was performed with running 7-0 Prolene suture. On completion anastomosis flow through was removed effectively probing the proximal distal portion anastomosis. Suture was tied with good result and hemostasis. Good backbleeding was noted in the radial artery control with a bulldog clamp. The heart was lowered into anatomic position. The radial was brought around the AV groove posteriorly and up on onto the AZUL. It was just a little short to reach the ascending aorta comfortably. Was decided to jumped off the internal mammary artery. Connector was only one proximal anastomosis to place on the aorta was decided to use a heartstring device. The heart string device was deployed in the mid ascending aorta anteriorly and the proximal anastomosis of the saphenous vein off the aorta was performed inside fashion w ith running 5-0 Prolene suture. On completion of the anastomosis was de-aired by backbleeding the needle holes. The heart string device was removed and the suture tied with good result and hemostasis. Bulldog clamps were placed on the left internal mammary artery proximally and distally. Was opened just as it entered the pericardial space with a linear longitudinal incision. Proximal anastomosis of the radial off the left internal mammary was performed inside and fashion with running 8-0 Prolene suture. On completion anastomosis was de-aired by backbleeding. Suture was tied with good result and hemostasis and the inflow was open. All grafts lay well and proximal distal anastomoses were hemostatic. Heparin was reversed with protamine. Good hemostasis was obtained throughout. Mediastinum was drained with 2 36-St Lucian chest tubes. Chest was irrigated with antibiotic solution. The sternum was closed with 8 sternal wires. Fascia was closed with 0 Ethibond. Subcutaneous and subcuticular layers were closed layers of Vicryl suture. Bilateral subpectoral pain pump catheters were placed I sterile dressings were applied the patient was transferred to the ICU in stable hemodynamic condition.
[2021-04-14 14:09] LABS: Glucose,Whole Blood 106 mg/dL (75-99)
[2021-04-14 14:28] LABS: INR 1.2 (<1.2); Partial Thromboplastin Time 28.2 sec (22.0-30.0); Prothrombin Time 12.3 sec (9.0-12.0)
[2021-04-14 14:35] LABS: ABG Base Excess -4.3 mmol/L; ABG HCO3 22 mmol/L (21-25); ABG Oxygen Saturation 99.1 % (94-97); ABG PCO2 48 mmHg (35-45); ABG PH 7.28 (7.35-7.45); ABG PO2 284 mmHg (83-108); ABG TCO2 24 mmol/L (19-24)
[2021-04-14 14:36] LABS: Allen Test Performed? no
[2021-04-14 14:40] LABS: Basophils % (A) 0 %; Eosinophils # (A) 0.2 k/uL (0-0.7); Eosinophils % (A) 1 %; HCT 29.3 % (39.0-53.0); Lymphocytes # (A) 2.3 k/uL (1.0-4.8); Lymphocytes % (A) 17 %; MCH 31.2 pg (25.0-35.0); MCHC 35.4 g/dL (31.0-37.0); MCV 88.3 fL (80.0-100.0); Monocytes # (A) 0.4 k/uL (0-1.0); Monocytes % (A) 3 %; Neutrophils # (A) 10.4 k/uL (1.3-7.7); Neutrophils % (A) 77 %; Platelet Count 158 k/uL (150-450); RBC 3.31 m/uL (4.30-5.90); RDW 12.8 % (11.5-15.5); WBC 13.5 k/uL (3.8-10.6)
[2021-04-14 14:43] LABS: HGB 10.4 gm/dL (13.0-17.5)
[2021-04-14] MEDS ORDERED: MUPIROCIN 2% OINT 22 GM TUBE NASAL ONE (14:45)
[2021-04-14 14:46] LABS: ALT 12 U/L (4-49); AST 28 U/L (17-59); African American GFR (CKD) >90 (>60 ml/min/1.73 sqM); Albumin 3.7 g/dL (3.5-5.0); Alkaline Phosphatase 25 U/L (38-126); Anion Gap 8 mmol/L; Blood Urea Nitrogen 20 mg/dL (9-20); Carbon Dioxide 20 mmol/L (22-30); Chloride 109 mmol/L (98-107); Glucose 101 mg/dL (74-99); Magnesium 1.4 mg/dL (1.6-2.3); Non-African American GFR(CKD) >90 (>60 ml/min/1.73 sqM); Potassium 4.4 mmol/L (3.5-5.1); Sodium 137 mmol/L (137-145); Total Bilirubin 1.1 mg/dL (0.2-1.3); Total Protein 5.5 g/dL (6.3-8.2)
--- NOTE | 2021-04-14 15:07 | XR ---
EXAMINATION TYPE: XR chest 1V portable DATE OF EXAM: 04/14/2021 COMPARISON: 04/07/2021 INDICATION: Postop cardiac surgery TECHNIQUE: Single frontal view of the chest is obtained. FINDINGS: The heart size is normal. The pulmonary vasculature is normal. Mild right lower lobe linear opacity is present likely on the basis of atelectasis. Diffuse perihilar and lower lobe infiltrate is present on the left may be related atelectasis. Mediastinal tuber, and left-sided chest tubes are present. Endotracheal tube has its tip located 3.4 cm above the chandrakant. Na sogastric tube transverses the thorax rate no pneumothorax is evident. [place]-Kannan catheter tip is in t he right main pulmonary artery region. IMPRESSION: 1. Mild infiltrates greater on the left likely related atelectasis. 2. Multiple lines and catheters discussed above. 3. Left-sided chest tube, no pneumothorax is evident.
[2021-04-14 15:18] LABS: Glucose,Whole Blood 91 mg/dL (75-99)
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
[2021-04-14] MEDS ORDERED: IPRATROPIUM-ALBUTEROL 3 ML NEB INHALATION SCH (16:00)
[2021-04-14] MEDS: fentaNYL (PF) 50 MCG/ML 2 ML AMP IVP PRN ×2 (16:08→21:08)
[2021-04-14] MEDS: LACTATED RINGERS 1,000 ML IV SCH (16:12)
[2021-04-14] MEDS: AMIODARONE 360 MG in DEXTROSE 5% IN WATER 200 ML IV SCH ×2 (16:16)
[2021-04-14] MEDS: ALBUMIN HUMAN 5% 250 ML in EMPTY BAG 1 BAG IVPB PRN ×6 (16:18→23:03)
[2021-04-14] MEDS: MAGNESIUM SULFATE-D5W PMX 1 GM in DEXTROSE/WATER 1 100ML.BAG IVPB SCH ×2 (16:24→18:15)
[2021-04-14 16:45] LABS: Glucose,Whole Blood 133 mg/dL (75-99)
[2021-04-14 16:58] LABS: Basophils % (A) 0 %; Eosinophils # (A) 0.2 k/uL (0-0.7); Eosinophils % (A) 1 %; HCT 28.1 % (39.0-53.0); HGB 9.9 gm/dL (13.0-17.5); Lymphocytes # (A) 1.5 k/uL (1.0-4.8); Lymphocytes % (A) 12 %; MCH 31.1 pg (25.0-35.0); MCHC 35.2 g/dL (31.0-37.0); MCV 88.6 fL (80.0-100.0); Mean Platelet Volume 7.2; Monocytes # (A) 0.5 k/uL (0-1.0); Monocytes % (A) 4 %; Neutrophils # (A) 10.3 k/uL (1.3-7.7); Neutrophils % (A) 82 %; Platelet Count 173 k/uL (150-450); RBC 3.17 m/uL (4.30-5.90); RDW 12.9 % (11.5-15.5); WBC 12.7 k/uL (3.8-10.6)
[2021-04-14] MEDS: AMIODARONE 450 MG in DEXTROSE 5% IN WATER 250 ML IV SCH ×2 (17:08)
[2021-04-14] MEDS: HEPARIN SODIUM,PORCINE/PF 5,000 UNIT/0.5 ML SYRINGE SQ SCH ×2 (17:12→23:13)
[2021-04-14] MEDS: ACETAMINOPHEN IV (For NPO) 1,000 MG in EMPTY BAG 1 BAG IVPB SCH ×2 (17:48→23:13)
[2021-04-14 18:06] LABS: Glucose,Whole Blood 119 mg/dL (75-99)
[2021-04-14] MEDS: KETOROLAC 30 MG/ML 1 ML VIAL IVP SCH ×2 (18:35→23:12)
[2021-04-14 19:01] LABS: Glucose,Whole Blood 126 mg/dL (75-99)
[2021-04-14] MEDS: IPRATROPIUM-ALBUTEROL 3 ML NEB INHALATION SCH (19:55)
[2021-04-14 19:59] LABS: Glucose,Whole Blood 124 mg/dL (75-99)
[2021-04-14 20:35] LABS: Basophils % (A) 0 %; Eosinophils % (A) 0 %; HCT 25.7 % (39.0-53.0); HGB 8.8 gm/dL (13.0-17.5); Lymphocytes # (A) 0.6 k/uL (1.0-4.8); Lymphocytes % (A) 7 %; MCH 30.6 pg (25.0-35.0); MCHC 34.3 g/dL (31.0-37.0); MCV 89.2 fL (80.0-100.0); Mean Platelet Volume 9.3; Monocytes # (A) 0.3 k/uL (0-1.0); Monocytes % (A) 4 %; Neutrophils # (A) 8.1 k/uL (1.3-7.7); Neutrophils % (A) 89 %; Platelet Count 122 k/uL (150-450); RBC 2.88 m/uL (4.30-5.90); RDW 12.1 % (11.5-15.5); WBC 9.1 k/uL (3.8-10.6)
[2021-04-14 21:04] LABS: Glucose,Whole Blood 122 mg/dL (75-99)
[2021-04-14 22:56] LABS: Glucose,Whole Blood 120 mg/dL (75-99)
[2021-04-15] MEDS: ALBUMIN HUMAN 5% 250 ML in EMPTY BAG 1 BAG IVPB PRN ×3 (00:20→07:08)
[2021-04-15 01:30] LABS: Glucose,Whole Blood 127 mg/dL (75-99)
[2021-04-15] MEDS ORDERED: HYDROcodone/APAP 5-325MG 1 EACH TAB PO PRN ×2 (01:40)
[2021-04-15 03:09] LABS: Glucose,Whole Blood 128 mg/dL (75-99)
[2021-04-15] MEDS: oxyCODONE-APAP 10-325MG 1 EACH TAB PO PRN ×4 (03:19→19:59)
[2021-04-15 03:24] LABS: Basophils % (A) 0 %; Eosinophils % (A) 0 %; HGB 8.3 gm/dL (13.0-17.5); Lymphocytes # (A) 0.8 k/uL (1.0-4.8); Lymphocytes % (A) 11 %; MCH 30.9 pg (25.0-35.0); MCHC 34.7 g/dL (31.0-37.0); Mean Platelet Volume 9.6; Monocytes # (A) 0.3 k/uL (0-1.0); Monocytes % (A) 4 %; Neutrophils # (A) 6.2 k/uL (1.3-7.7); Neutrophils % (A) 84 %; Platelet Count 118 k/uL (150-450); RBC 2.69 m/uL (4.30-5.90); WBC 7.4 k/uL (3.8-10.6)
[2021-04-15 03:36] LABS: Ionized Calcium 5.1 mg/dL (4.5-5.3)
[2021-04-15 03:43] LABS: ALT 11 U/L (4-49); AST 35 U/L (17-59); African American GFR (CKD) 71 (>60 ml/min/1.73 sqM); Albumin 4.2 g/dL (3.5-5.0); Alkaline Phosphatase <20 U/L (38-126); Anion Gap 10 mmol/L; Blood Urea Nitrogen 24 mg/dL (9-20); Calcium 8.6 mg/dL (8.4-10.2); Carbon Dioxide 19 mmol/L (22-30); Chloride 106 mmol/L (98-107); Glucose 114 mg/dL (74-99); Magnesium 2.1 mg/dL (1.6-2.3); Non-African American GFR(CKD) 61 (>60 ml/min/1.73 sqM); Potassium 4.8 mmol/L (3.5-5.1); Sodium 135 mmol/L (137-145); Total Protein 5.7 g/dL (6.3-8.2)
[2021-04-15] MEDS: AMIODARONE 450 MG in DEXTROSE 5% IN WATER 250 ML IV SCH ×2 (04:45)
[2021-04-15] MEDS: KETOROLAC 30 MG/ML 1 ML VIAL IVP SCH (05:08)
[2021-04-15 06:03] LABS: Glucose,Whole Blood 148 mg/dL (75-99)
[2021-04-15 07:06] LABS: Glucose,Whole Blood 136 mg/dL (75-99)
--- NOTE | 2021-04-15 07:12 | XR ---
EXAMINATION TYPE: XR chest 1V portable DATE OF EXAM: 04/15/2021 COMPARISON: 04/14/2021 HISTORY: SOB, Follow Up FINDINGS: Endotracheal tube as well as the NG tube have been removed. [place]-Kannan catheter sided chest tube and m ediastinal drains remain in place. There is no evidence for pneumothorax. Persistent but improving basilar strandy densities felt to reflect atelectasis. Stable appearance of the cardio-mediastinal structures at this time. Pleural effusion unchanged. IMPRESSION: 1. Persistent but improving basilar strandy densities felt to reflect atelectasis.
[2021-04-15 07:49] LABS: Glucose,Whole Blood 157 mg/dL (75-99)
[2021-04-15] MEDS: AMIODARONE 360 MG in DEXTROSE 5% IN WATER 200 ML IV SCH ×6 (07:51→08:33)
[2021-04-15] MEDS: IPRATROPIUM-ALBUTEROL 3 ML NEB INHALATION SCH ×4 (08:14→19:27)
--- NOTE | 2021-04-15 08:24 | P.PN ---
Subjective Progress Note Date: 04/15/21 Principal diagnosis: Coronary artery disease, unstable angina. Previous medical history of hypertension, hyperlipidemia, paroxysmal atrial fibrillation, EtOH abuse with history of withdrawal, last drink in September 2020, chronic tobacco dependence, COPD, anxiety/depression, remote history of pneumonia, medical noncompliance, and family history of coronary artery disease. Vaccinated but not boosted against Covid POD #1 off-pump CABG 4 with sequential left internal mammary artery to the diagonal and the left anterior descending coronary artery, left radial artery T graft off the AZUL to the obtuse marginal, saphenous vein graft to the posterior descending artery with endovascular vein harvest, Endo radial artery harvest, bilateral pulmonary vein ablation, occlusion of the left atrial appendage was a 35 mm AtriCure clip, epi-aortic ultrasound, intraoperative transesophageal echocardiogram performed by anesthesia Acute blood loss anemia and thrombocytopenia, expected given hemodilution Hypotension, unexpected The patient was seen and examined this morning sitting up in a recliner in the intensive care unit. Was extubated yesterday at 3:40 PM. He is very fidgety and complains of some numbness to his right lower extremity where his vein was harvested. He does complain of post surgical pain, denies shortness of breath. He wants to get up and move. Has been agitated at times overnight. Alert and oriented to person, place, time, situation. Remains in sinus rhythm with heart rate in the 60s, hypotensive but with mean blood pressures in the low 60s over night, has been given IV volume. Right internal jugular [place]/Cordis, right radial arterial line, mediastinal/left pleural chest tubes all remain present. Lab work and chest x-ray reviewed. Objective - Vital Signs Vital signs: Vital Signs Temp 98.6 F 04/15/21 04:00 Pulse 62 04/15/21 07:00 Resp 10 L 04/15/21 07:00 BP 84/50 04/15/21 07:00 Pulse Ox 95 04/15/21 07:00 Intake & Output 04/14/21 04/15/21 04/15/21 18:59 06:59 18:59 Intake Total 213.883 2858.590 378.407 Output Total 1715 904 40 Balance -1003.846 910.590 338.407 Weight 99.4 kg Intake: IV 699 1808 309 ACETAMINOPHEN IV (For NPO 100 ) 1,000 mg In Empty Bag 1 bag @ 400 mls/hr IVPB Q6HR [facility] Rx#:[id number] Albumin Human 5% 250 ml 1000 250 In Empty Bag 1 bag @ 250 mls/hr IVPB Q1HR PRN Rx#: [id number] CO/CI 100 0 Lactated Ringers 1,000 ml 250 600 50 @ 50 mls/hr IV .Q20H [facility] Rx#:[id number] Magnesium Sulfate-D5w Pmx 200 1 gm In Dextrose/Water 1 100ml.bag @ 100 mls/hr IVPB Q1H [facility] Rx#: [id number] Pressure Bag 45 108 9 ceFAZolin 2 gm In Sodium 50 Chloride 0.9% 50 ml @ 100 mls/hr IVPB Q8HR [facility] Rx# :[id number] Intake, IV Titration 12.154 6.590 69.407 Amount Dexmedetomidine/0.9% NaCl 9.812 67.867 (Pmx) 400 mcg In Empty Bag 1 bag @ Titrate IV . Q0M [facility] Rx#:[id number] Insulin Regular 100 unit 0.842 6.590 1.54 In Sodium Chloride 0.9% 100 ml @ Per Protocol IV .Q0M [facility] Rx#:[id number] Nitroglycerin-D5w Pmx 50 1.5 mg In Dextrose/Water 1 250ml.bag @ 5 MCG/MIN 1.5 mls/hr IV .Q24H [facility] Rx#: [id number] Output: Chest Tube Drainage 300 440 20 Chest Tube Bilateral 210 310 0 Mediastinal Chest Tube Left Lateral 90 130 20 Chest Drainage 20 20 0 Left Arm 20 Left Wrist 20 0 Urine 395 444 20 Estimated Blood Loss 1000 Other: Voiding Method Indwelling Catheter Indwelling Catheter ABP, PAP, CO, CI - Last Documented Arterial Blood Pressure 82/51 Pulmonary Artery Pressure 26/13 Cardiac Output 5.6 Cardiac Index 2.7 - Exam CONSTITUTIONAL: Appears fidgety, no acute distress RESPIRATORY: Lungs sounds diminished bilaterally. Respirations even, nonlabored. Currently on 12 L high flow nasal cannula with oxygen saturation 96%. Able to achieve 1000 mL on incentive spirometry. Strong cough. CARDIOVASCULAR: S1, S2 present. Regular rate and rhythm, sinus rhythm on telemetry. Sternum stable. Palpable peripheral pulses bilaterally. Trace bilateral lower extremity edema present. No calf pain or tenderness noted. Heart hugger in place with patient demonstrating appropriate use. Antiembolism stockings, SCDs present. GASTROINTESTINAL: Abdomen soft, nontender, nondistended. Hypoactive bowel sounds present 4 quadrants. Tolerating clear liquids GENITOURINARY: Humphries present draining clear, yellow urine. Output overnight 25-40 mL per hour INTEGUMENTARY: Skin is warm and dry with evidence of good perfusion. Anterior chest incision well approximated and covered with dry intact dressing. Right l ower extremity EVH site well approximated without redness or drainage. Left radial artery harvest site Good wrapped, minimal drainage in ALFREDO NEUROLOGIC: Cranial nerves II through XII intact MUSKULOSKELETAL: Able to move all extremities, strength equal bilaterally, gait normal PSYCHIATRIC: Alert and oriented to person place and time, flat affect, very fidgety and agitated at times INVASIVE LINES AND TUBES: Mediastinal/left pleural chest tubes present and connected to wall suction, no air leaks present. Mediastinal tube with 220 mL serosanguineous drainage overnight, 470 mL since surgery. Left pleural chest tube with 80 mL serosanguineous drainage overnight, 270 mL since surgery. Right internal jugular [place]/Cordis, right radial arterial line present. Last CO/CI 5.7/2.7, PA 26/14, CVP 15. - Allied health notes Allied health notes reviewed: nursing - Labs CBC & Chem 7: 04/15/21 03:07 04/15/21 03:07 Labs: Abnormal Lab Results - Last 24 Hours (Table) 04/07/21 04/14/21 04/14/21 Range/Units 13:11 08:37 10:23 WBC (3.8-10.6) k/uL RBC (4.30-5.90) m/uL Hgb (13.0-17.5) gm/dL Hct (39.0-53.0) % Plt Count (150-450) k/uL Neutrophils # (1.3-7.7) k/uL Lymphocytes # (1.0-4.8) k/uL PT (9.0-12.0) sec INR (<1.2) ABG pH 7.33 L (7.35-7.45) ABG pCO2 48 H (35-45) mmHg ABG pO2 133 H 128 H (83-108) mmHg ABG Total CO2 27 H (19-24) mmol/L ABG O2 Saturation 98.5 H 98.7 H (94-97) % ABG Hematocrit (34.0-46.0) % ABG Potassium 4.8 H 4.8 H (3.4-4.5) mmol/L ABG Glucose 107 H 109 H (75-99) mg/dL Hemoglobin 12.4 L 11.7 L (13.0-17.5) gm/dL Sodium (137-145) mmol/L Chloride (98-107) mmol/L Carbon Dioxide (22-30) mmol/L BUN (9-20) mg/dL Creatinine (0.66-1.25) mg/dL Glucose (74-99) mg/dL POC Glucose (mg/dL) (75-99) mg/dL Calcium (8.4-10.2) mg/dL Magnesium (1.6-2.3) mg/dL Alkaline Phosphatase (38-126) U/L Total Protein (6.3-8.2) g/dL Arterial Blood Potassium 4.8 H 4.8 H (3.4-4.5) mmol/L Arterial Blood Glucose 107 H 109 H (75-99) mg/dL Crossmatch See Detail 04/14/21 04/14/21 04/14/21 Range/Units 11:19 11:54 14:07 WBC (3.8-10.6) k/uL RBC (4.30-5.90) m/uL Hgb (13.0-17.5) gm/dL Hct (39.0-53.0) % Plt Count (150-450) k/uL Neutrophils # (1.3-7.7) k/uL Lymphocytes # (1.0-4.8) k/uL PT (9.0-12.0) sec INR (<1.2) ABG pH (7.35-7.45) ABG pCO2 (35-45) mmHg ABG pO2 119 H 114 H (83-108) mmHg ABG Total CO2 (19-24) mmol/L ABG O2 Saturation 98.6 H 98.4 H (94-97) % ABG Hematocrit 31 L 31 L (34.0-46.0) % ABG Potassium 4.8 H 4.6 H (3.4-4.5) mmol/L ABG Glucose 106 H 107 H (75-99) mg/dL Hemoglobin 10.0 L 10.0 L (13.0-17.5) gm/dL Sodium (137-145) mmol/L Chloride (98-107) mmol/L Carbon Dioxide (22-30) mmol/L BUN (9-20) mg/dL Creatinine (0.66-1.25) mg/dL Glucose (74-99) mg/dL POC Glucose (mg/dL) 106 H (75-99) mg/dL Calcium (8.4-10.2) mg/dL Magnesium (1.6-2.3) mg/dL Alkaline Phosphatase (38-126) U/L Total Protein (6.3-8.2) g/dL Arterial Blood Potassium 4.8 H 4.6 H (3.4-4.5) mmol/L Arterial Blood Glucose 106 H 107 H (75-99) mg/dL Crossmatch 04/14/21 04/14/21 04/14/21 Range/Units 14:08 14:08 14:08 WBC 13.5 H (3.8-10.6) k/uL RBC 3.31 L (4.30-5.90) m/uL Hgb 10.4 L D (13.0-17.5) gm/dL Hct 29.3 L (39.0-53.0) % Plt Count (150-450) k/uL Neutrophils # 10.4 H (1.3-7.7) k/uL Lymphocytes # (1.0-4.8) k/uL PT 12.3 H (9.0-12.0) sec INR 1.2 H (<1.2) ABG pH (7.35-7.45) ABG pCO2 (35-45) mmHg ABG pO2 (83-108) mmHg ABG Total CO2 (19-24) mmol/L ABG O2 Saturation (94-97) % ABG Hematocrit (34.0-46.0) % ABG Potassium (3.4-4.5) mmol/L ABG Glucose (75-99) mg/dL Hemoglobin (13.0-17.5) gm/dL Sodium (137-145) mmol/L Chloride 109 H (98-107) mmol/L Carbon Dioxide 20 L (22-30) mmol/L BUN (9-20) mg/dL Creatinine (0.66-1.25) mg/dL Glucose 101 H (74-99) mg/dL POC Glucose (mg/dL) (75-99) mg/dL Calcium 8.0 L (8.4-10.2) mg/dL Magnesium 1.4 L (1.6-2.3) mg/dL Alkaline Phosphatase 25 L (38-126) U/L Total Protein 5.5 L (6.3-8.2) g/dL Arterial Blood Potassium (3.4-4.5) mmol/L Arterial Blood Glucose (75-99) mg/dL Crossmatch 04/14/21 04/14/21 04/14/21 Range/Units 14:34 16:43 16:45 WBC 12.7 H (3.8-10.6) k/uL RBC 3.17 L (4.30-5.90) m/uL Hgb 9.9 L (13.0-17.5) gm/dL Hct 28.1 L (39.0-53.0) % Plt Count (150-450) k/uL Neutrophils # 10.3 H (1.3-7.7) k/uL Lymphocytes # (1.0-4.8) k/uL PT (9.0-12.0) sec INR (<1.2) ABG pH 7.28 L (7.35-7.45) ABG pCO2 48 H (35-45) mmHg ABG pO2 284 H (83-108) mmHg ABG Total CO2 (19-24) mmol/L ABG O2 Saturation 99.1 H (94-97) % ABG Hematocrit (34.0-46.0) % ABG Potassium (3.4-4.5) mmol/L ABG Glucose (75-99) mg/dL Hemoglobin (13.0-17.5) gm/dL Sodium (137-145) mmol/L Chloride (98-107) mmol/L Carbon Dioxide (22-30) mmol/L BUN (9-20) mg/dL Creatinine (0.66-1.25) mg/dL Glucose (74-99) mg/dL POC Glucose (mg/dL) 133 H (75-99) mg/dL Calcium (8.4-10.2) mg/dL Magnesium (1.6-2.3) mg/dL Alkaline Phosphatase (38-126) U/L Total Protein (6.3-8.2) g/dL Arterial Blood Potassium (3.4-4.5) mmol/L Arterial Blood Glucose (75-99) mg/dL Crossmatch 04/14/21 04/14/21 04/14/21 Range/Units 18:05 18:59 19:57 WBC (3.8-10.6) k/uL RBC (4.30-5.90) m/uL Hgb (13.0-17.5) gm/dL Hct (39.0-53.0) % Plt Count (150-450) k/uL Neutrophils # (1.3-7.7) k/uL Lymphocytes # (1.0-4.8) k/uL PT (9.0-12.0) sec INR (<1.2) ABG pH (7.35-7.45) ABG pCO2 (35-45) mmHg ABG pO2 (83-108) mmHg ABG Total CO2 (19-24) mmol/L ABG O2 Saturation (94-97) % ABG Hematocrit (34.0-46.0) % ABG Potassium (3.4-4.5) mmol/L ABG Glucose (75-99) mg/dL Hemoglobin (13.0-17.5) gm/dL Sodium (137-145) mmol/L Chloride (98-107) mmol/L Carbon Dioxide (22-30) mmol/L BUN (9-20) mg/dL Creatinine (0.66-1.25) mg/dL Glucose (74-99) mg/dL POC Glucose (mg/dL) 119 H 126 H 124 H (75-99) mg/dL Calcium (8.4-10.2) mg/dL Magnesium (1.6-2.3) mg/dL Alkaline Phosphatase (38-126) U/L Total Protein (6.3-8.2) g/dL Arterial Blood Potassium (3.4-4.5) mmol/L Arterial Blood Glucose (75-99) mg/dL Crossmatch 04/14/21 04/14/21 04/14/21 Range/Units 20:25 21:03 22:54 WBC (3.8-10.6) k/uL RBC 2.88 L (4.30-5.90) m/uL Hgb 8.8 L (13.0-17.5) gm/dL Hct 25.7 L (39.0-53.0) % Plt Count 122 L (150-450) k/uL Neutrophils # 8.1 H (1.3-7.7) k/uL Lymphocytes # 0.6 L (1.0-4.8) k/uL PT (9.0-12.0) sec INR (<1.2) ABG pH (7.35-7.45) ABG pCO2 (35-45) mmHg ABG pO2 (83-108) mmHg ABG Total CO2 (19-24) mmol/L ABG O2 Saturation (94-97) % ABG Hematocrit (34.0-46.0) % ABG Potassium (3.4-4.5) mmol/L ABG Glucose (75-99) mg/dL Hemoglobin (13.0-17.5) gm/dL Sodium (137-145) mmol/L Chloride (98-107) mmol/L Carbon Dioxide (22-30) mmol/L BUN (9-20) mg/dL Creatinine (0.66-1.25) mg/dL Glucose (74-99) mg/dL POC Glucose (mg/dL) 122 H 120 H (75-99) mg/dL Calcium (8.4-10.2) mg/dL Magnesium (1.6-2.3) mg/dL Alkaline Phosphatase (38-126) U/L Total Protein (6.3-8.2) g/dL Arterial Blood Potassium (3.4-4.5) mmol/L Arterial Blood Glucose (75-99) mg/dL Crossmatch 04/15/21 04/15/21 04/15/21 Range/Units 01:29 03:06 03:07 WBC (3.8-10.6) k/uL RBC 2.69 L (4.30-5.90) m/uL Hgb 8.3 L (13.0-17.5) gm/dL Hct 24.0 L (39.0-53.0) % Plt Count 118 L (150-450) k/uL Neutrophils # (1.3-7.7) k/uL Lymphocytes # 0.8 L (1.0-4.8) k/uL PT (9.0-12.0) sec INR (<1.2) ABG pH (7.35-7.45) ABG pCO2 (35-45) mmHg ABG pO2 (83-108) mmHg ABG Total CO2 (19-24) mmol/L ABG O2 Saturation (94-97) % ABG Hematocrit (34.0-46.0) % ABG Potassium (3.4-4.5) mmol/L ABG Glucose (75-99) mg/dL Hemoglobin (13.0-17.5) gm/dL Sodium (137-145) mmol/L Chloride (98-107) mmol/L Carbon Dioxide (22-30) mmol/L BUN (9-20) mg/dL Creatinine (0.66-1.25) mg/dL Glucose (74-99) mg/dL POC Glucose (mg/dL) 127 H 128 H (75-99) mg/dL Calcium (8.4-10.2) mg/dL Magnesium (1.6-2.3) mg/dL Alkaline Phosphatase (38-126) U/L Total Protein (6.3-8.2) g/dL Arterial Blood Potassium (3.4-4.5) mmol/L Arterial Blood Glucose (75-99) mg/dL Crossmatch 04/15/21 04/15/21 04/15/21 Range/Units 03:07 06:01 07:05 WBC (3.8-10.6) k/uL RBC (4.30-5.90) m/uL Hgb (13.0-17.5) gm/dL Hct (39.0-53.0) % Plt Count (150-450) k/uL Neutrophils # (1.3-7.7) k/uL Lymphocytes # (1.0-4.8) k/uL PT (9.0-12.0) sec INR (<1.2) ABG pH (7.35-7.45) ABG pCO2 (35-45) mmHg ABG pO2 (83-108) mmHg ABG Total CO2 (19-24) mmol/L ABG O2 Saturation (94-97) % ABG Hematocrit (34.0-46.0) % ABG Potassium (3.4-4.5) mmol/L ABG Glucose (75-99) mg/dL Hemoglobin (13.0-17.5) gm/dL Sodium 135 L (137-145) mmol/L Chloride (98-107) mmol/L Carbon Dioxide 19 L (22-30) mmol/L BUN 24 H (9-20) mg/dL Creatinine 1.32 H (0.66-1.25) mg/dL Glucose 114 H (74-99) mg/dL POC Glucose (mg/dL) 148 H 136 H (75-99) mg/dL Calcium (8.4-10.2) mg/dL Magnesium (1.6-2.3) mg/dL Alkaline Phosphatase <20 L (38-126) U/L Total Protein 5.7 L (6.3-8.2) g/dL Arterial Blood Potassium (3.4-4.5) mmol/L Arterial Blood Glucose (75-99) mg/dL Crossmatch - Imaging and Cardiology Chest x-ray: report reviewed, image reviewed Assessment and Plan Assessment: 1. Coronary artery disease, unstable angina, status post four-vessel off-pump CABG 2. History of hypertension, currently hypotensive 3. Hyperlipidemia, treated, cholesterol 152, LDL 83 4. Paroxysmal atrial fibrillation, status post left atrial appendage ligation as well as bilateral pulmonary vein ablation 5. EtOH abuse with history of withdrawal, last drink in September 2020 6. Chronic tobacco dependence, quit smoking cigarettes, still vapes 7. COPD, preoperative FEV1 97% of predicted 8. Anxiety/depression, follows with [facility] 9. Remote history of pneumonia 10. History of medical noncompliance 11. Family history of coronary artery disease 12. Vaccinated but not boosted against Covid. Positive Covid in February 2021 13. Acute blood loss anemia and thrombocytopenia, expected Plan: 1. Continue aspirin, statin, Plavix, beta lurdes. Will increase beta lurdes when able. Hold parameters on beta blockers. Discontinue IV nitro, discontinue IV Cardizem 2. Continue amiodarone for A. fib prophylaxis, will transition to oral 3. Wean O2 as tolerated. Encourage incentive spirometry 10 times every hour while awake. Bronchodilators per pulmonology 4. Increase activity, ambulate as tolerated. PT/OT/cardiac rehab consulted 5. Will monitor daily labs and x-rays. Electrolyte replacement per protocol 6. GI/DVT prophylaxis 7. Pain control with current medication regimen. 8. Discontinue [place]. Connect Cordis to continuous CVP monitoring 9. Will discontinue ALFREDO drain 10. Will discontinue chest tubes 11. Continue Humphries catheter for another 24 hours for strict accurate intake and output. Daily weights 12. Smoking cessation counseling offered, encourage complete smoking cessation 13. Insulin management per internal medicine service. Patient is not diabetic, preoperative hemoglobin A1c 6%, however he does need tight blood sugar control to promote sternal union and prevent infection 14. More recommendations to follow Time with Patient: Greater than 30
[2021-04-15] MEDS: MULTIVITAMINS, THERA 1 EACH TAB PO SCH (08:30)
[2021-04-15] MEDS: ATORVASTATIN 40 MG TAB PO SCH (08:30)
[2021-04-15] MEDS: CLOPIDOGREL 75 MG TAB PO SCH (08:30)
[2021-04-15] MEDS: ASPIRIN 325 MG TAB PO SCH (08:30)
[2021-04-15] MEDS: METOPROLOL TARTRATE 12.5 MG TAB PO SCH ×2 (08:30→21:16)
[2021-04-15] MEDS: HEPARIN SODIUM,PORCINE/PF 5,000 UNIT/0.5 ML SYRINGE SQ SCH ×2 (08:31→16:15)
[2021-04-15] MEDS: AMIODARONE 200 MG TAB PO SCH ×2 (08:36→21:17)
[2021-04-15] MEDS: FOLIC ACID-VIT B COMPLEX-VIT C 1 CAP PO SCH (08:37)
[2021-04-15] MEDS ORDERED: PANTOPRAZOLE 40 MG/10 ML VIAL IVP SCH (09:00)
[2021-04-15] MEDS ORDERED: MAGNESIUM HYDROXIDE 2,400 MG/10 ML CUP PO PRN (09:00)
[2021-04-15] MEDS ORDERED: bisacodyL 10 MG SUPP RECTAL PRN (09:00)
[2021-04-15 09:59] LABS: Glucose,Whole Blood 139 mg/dL (75-99)
[2021-04-15 10:01] VITALS: BMI 33.3
[2021-04-15] MEDS: fentaNYL (PF) 50 MCG/ML 2 ML AMP IVP PRN (11:04)
[2021-04-15 11:52] LABS: Glucose,Whole Blood 122 mg/dL (75-99)
--- NOTE | 2021-04-15 13:47 | P.CONS ---
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 k/uL PT (9.0-12.0) sec INR (<1.2) ABG pH (7.35-7.45) ABG pCO2 (35-45) mmHg ABG pO2 (83-108) mmHg ABG Total CO2 (19-24) mmol/L ABG O2 Saturation (94-97) % ABG Hematocrit (34.0-46.0) % ABG Potassium (3.4-4.5) mmol/L ABG Glucose (75-99) mg/dL Hemoglobin (13.0-17.5) gm/dL Sodium (137-145) mmol/L Chloride (98-107) mmol/L Carbon Dioxide (22-30) mmol/L BUN (9-20) mg/dL Creatinine (0.66-1.25) mg/dL Glucose (74-99) mg/dL POC Glucose (mg/dL) 157 H (75-99) mg/dL Calcium (8.4-10.2) mg/dL Magnesium (1.6-2.3) mg/dL Alkaline Phosphatase (38-126) U/L Total Protein (6.3-8.2) g/dL Arterial Blood Potassium (3.4-4.5) mmol/L Arterial Blood Glucose (75-99) mg/dL Crossmatch
--- NOTE | 2021-04-15 13:50 | P.PN ---
<Rossy Mcnulty - Last Filed: 04/15/21 13:29> Subjective Progress Note Date: 04/15/21 Principal diagnosis: Coronary artery disease, status post coronary artery bypass grafting [id number] male patient with symptomatic coronary artery disease and underwent off-pump coronary artery bypass surgery 4 with AZUL to diagonal and LAD and left radial to graft off AZUL to obtuse marginal and saphenous vein graft to PDA. The patient also underwent a left atrial clipping. He does have history of CAD approximately atrial fibrillation. Is a smoker and has COPD. I saw the patient may definitely rub. In the ICU. The patient was sedated on propofol which was running at 30 mg/kg per minute. The patient is a Cardizem drip for protocol at 5 mg an hour for radial artery harvesting and the patient will be started on amiodarone drip for A. fib prophylaxis. The patient did have one episode of atrial fibrillation intraoperatively currently is in sinus rhythm. He is on a mechanical ventilator assist control mode with tidal volume of 500 and rate of 14 with an FiO2 of 60% with a PEEP of 10. The blood gases on 100% FiO2 showed a pH of 7.27 with a pCO2 of 48 and pO2 of 284. Chest x-ray yousuf ws adequate expansion of both lungs. No evidence of any pneumothorax. The patient has 2 mediastinal chest tubes drained approximately 50 mL since or and 1 pleural chest tube on the left drained 20 mL since or. The patient is on no pressors. Cardiac output is areas 4. with an index of 2.3 and the pulmonary artery pressures are 31/16. The patient is on this is a total of 2 L of albumin postop. Adequate urine output for now. The patient is seen today 04/15/2021 in follow-up in the intensive care unit. This is postoperative day #1 of a off-pump coronary artery bypass surgery 4. He was successfully extubated within the 6 hour window yesterday. Currently sitting up in a chair. Awake and alert in no acute distress. Still having some issues with pain management. He is still requiring 12 L high flow nasal cannula to maintain O2 saturations in the 90s. He is on insulin at 1.5 units per hour. Lactated Ringer's at 50 mL per hour. He was having some issues with hypotension and has received albumin 4. Cardiac output 5.6. Cardiac index 2.7. PA pressures 38/19. CVP 16. Chest x-ray reveals persistent but improving basilar strandy densities most likely atelectasis. Pulling approximately 1000 on the incentive spirometer. Mediastinal chest tube had 470 mls serosanguineous fluid out to surgery. Left pleural chest tube 270 mL polyp surgery. Both wall suction. No air leaks present. Right IJ Warren-Kannan catheter in place. Right radial arterial line in place. White count 7.4. Hemoglobin 8.3. Platelet count 118,000. Sodium 135. Potassium 4.8. Chloride 106. Bicarb 19. BUN 24. Creatinine 1.2. He remains on bronchodilators. Heparin for DVT prophylaxis. Objective - Vital Signs Vital signs: Vital Signs Temp 98.9 F 04/15/21 12:00 Pulse 64 04/15/21 13:00 Resp 19 04/15/21 13:00 BP 103/59 04/15/21 13:00 Pulse Ox 92 L 04/15/21 12:00 Intake & Output 04/14/21 04/15/21 04/15/21 18:59 06:59 18:59 Intake Total 853.261 1438.590 1053.316 Output Total 1715 904 395 Balance -1003.846 910.590 658.316 Weight 99.4 kg 99.4 kg Intake: IV 699 1808 578 ACETAMINOPHEN IV (For NPO 100 ) 1,000 mg In Empty Bag 1 bag @ 400 mls/hr IVPB Q6HR [facility] Rx#:[id number] Albumin Human 5% 250 ml 1000 250 In Empty Bag 1 bag @ 250 mls/hr IVPB Q1HR PRN Rx#: [id number] CO/CI 100 0 Lactated Ringers 1,000 ml 250 600 280 @ 50 mls/hr IV .Q20H [facility] Rx#:[id number] Magnesium Sulfate-D5w Pmx 200 1 gm In Dextrose/Water 1 100ml.bag @ 100 mls/hr IVPB Q1H [facility] Rx#: [id number] Pressure Bag 45 108 48 ceFAZolin 2 gm In Sodium 50 Chloride 0.9% 50 ml @ 100 mls/hr IVPB Q8HR [facility] Rx# :[id number] Intake, IV Titration 12.154 6.590 75.316 Amount Dexmedetomidine/0.9% NaCl 9.812 67.867 (Pmx) 400 mcg In Empty Bag 1 bag @ Titrate IV . Q0M [facility] Rx#:[id number] Insulin Regular 100 unit 0.842 6.590 7.449 In Sodium Chloride 0.9% 100 ml @ Per Protocol IV .Q0M [facility] Rx#:[id number] Nitroglycerin-D5w Pmx 50 1.5 mg In Dextrose/Water 1 250ml.bag @ 5 MCG/MIN 1.5 mls/hr IV .Q24H [facility] Rx#: [id number] Oral 400 Output: Chest Tube Drainage 300 440 220 Chest Tube Bilateral 210 310 140 Mediastinal Chest Tube Left Lateral 90 130 80 Chest Drainage 20 20 0 Left Arm 20 Left Wrist 20 0 Urine 395 444 175 Estimated Blood Loss 1000 Other: Voiding Method Indwelling Catheter Indwelling Catheter Indwelling Catheter ABP, PAP, CO, CI - Last Documented Arterial Blood Pressure 130/58 Pulmonary Artery Pressure 38/19 Cardiac Output 5.6 Cardiac Index 2.7 - Exam GENERAL EXAM: Alert, 55-year-old male patient, up in a chair at the bedside, on 12 L high flow nasal cannula, fairly comfortable in no apparent distress. HEAD: Normocephalic. EYES: Normal reaction of pupils, equal size. NOSE: Clear with pink turbinates. THROAT: No erythema or exudates. NECK: Right IJ Warren-Kannan catheter in place. No masses, no JVD. CHEST: Sternal dressing dry and intact. Heart hugger in place. Mediastinal and left pleural chest tubes in place. Attached wall suction. No air leaks present. LUNGS: Equal air entry with few scattered rhonchi bilaterally. CVS: S1 and S2 normal with no audible murmur, regular rhythm. ABDOMEN: No hepatosplenomegaly, normal bowel sounds, no guarding or rigidity. SPINE: No scoliosis or deformity SKIN: No rashes CENTRAL NERVOUS SYSTEM: No focal deficits, tone is normal in all 4 extremities. EXTREMITIES: Left radial ALFREDO drain in place. Right radial arterial line in place. Good wraps to lower extremities. SCDs in place. There is no peripheral edema. Peripheral pulses are intact. - Labs CBC & Chem 7: 04/15/21 03:07 04/15/21 03:07 Labs: Abnormal Lab Results - Last 24 Hours (Table) 04/07/21 04/14/21 04/14/21 Range/Units 13:11 08:37 10:23 WBC (3.8-10.6) k/uL RBC (4.30-5.90) m/uL Hgb (13.0-17.5) gm/dL Hct (39.0-53.0) % Plt Count (150-450) k/uL Neutrophils # (1.3-7.7) k/uL Lymphocytes # (1.0-4.8) k/uL PT (9.0-12.0) sec INR (<1.2) ABG pH 7.33 L (7.35-7.45) ABG pCO2 48 H (35-45) mmHg ABG pO2 133 H 128 H (83-108) mmHg ABG Total CO2 27 H (19-24) mmol/L ABG O2 Saturation 98.5 H 98.7 H (94-97) % ABG Hematocrit (34.0-46.0) % ABG Potassium 4.8 H 4.8 H (3.4-4.5) mmol/L ABG Glucose 107 H 109 H (75-99) mg/dL Hemoglobin 12.4 L 11.7 L (13.0-17.5) gm/dL Sodium (137-145) mmol/L Chloride (98-107) mmol/L Carbon Dioxide (22-30) mmol/L BUN (9-20) mg/dL Creatinine (0.66-1.25) mg/dL Glucose (74-99) mg/dL POC Glucose (mg/dL) (75-99) mg/dL Calcium (8.4-10.2) mg/dL Magnesium (1.6-2.3) mg/dL Alkaline Phosphatase (38-126) U/L Total Protein (6.3-8.2) g/dL Arterial Blood Potassium 4.8 H 4.8 H (3.4-4.5) mmol/L Arterial Blood Glucose 107 H 109 H (75-99) mg/dL Crossmatch See Detail 04/14/21 04/14/21 04/14/21 Range/Units 11:19 11:54 14:07 WBC (3.8-10.6) k/uL RBC (4.30-5.90) m/uL Hgb (13.0-17.5) gm/dL Hct (39.0-53.0) % Plt Count (150-450) k/uL Neutrophils # (1.3-7.7) k/uL Lymphocytes # (1.0-4.8) k/uL PT (9.0-12.0) sec INR (<1.2) ABG pH (7.35-7.45) ABG pCO2 (35-45) mmHg ABG pO2 119 H 114 H (83-108) mmHg ABG Total CO2 (19-24) mmol/L ABG O2 Saturation 98.6 H 98.4 H (94-97) % ABG Hematocrit 31 L 31 L (34.0-46.0) % ABG Potassium 4.8 H 4.6 H (3.4-4.5) mmol/L ABG Glucose 106 H 107 H (75-99) mg/dL Hemoglobin 10.0 L 10.0 L (13.0-17.5) gm/dL Sodium (137-145) mmol/L Chloride (98-107) mmol/L Carbon Dioxide (22-30) mmol/L BUN (9-20) mg/dL Creatinine (0.66-1.25) mg/dL Glucose (74-99) mg/dL POC Glucose (mg/dL) 106 H (75-99) mg/dL Calcium (8.4-10.2) mg/dL Magnesium (1.6-2.3) mg/dL Alkaline Phosphatase (38-126) U/L Total Protein (6.3-8.2) g/dL Arterial Blood Potassium 4.8 H 4.6 H (3.4-4.5) mmol/L Arterial Blood Glucose 106 H 107 H (75-99) mg/dL Crossmatch 04/14/21 04/14/21 04/14/21 Range/Units 14:08 14:08 14:08 WBC 13.5 H (3.8-10.6) k/uL RBC 3.31 L (4.30-5.90) m/uL Hgb 10.4 L D (13.0-17.5) gm/dL Hct 29.3 L (39.0-53.0) % Plt Count (150-450) k/uL Neutrophils # 10.4 H (1.3-7.7) k/uL Lymphocytes # (1.0-4.8) k/uL PT 12.3 H (9.0-12.0) sec INR 1.2 H (<1.2) ABG pH (7.35-7.45) ABG pCO2 (35-45) mmHg ABG pO2 (83-108) mmHg ABG Total CO2 (19-24) mmol/L ABG O2 Saturation (94-97) % ABG Hematocrit (34.0-46.0) % ABG Potassium (3.4-4.5) mmol/L ABG Glucose (75-99) mg/dL Hemoglobin (13.0-17.5) gm/dL Sodium (137-145) mmol/L Chloride 109 H (98-107) mmol/L Carbon Dioxide 20 L (22-30) mmol/L BUN (9-20) mg/dL Creatinine (0.66-1.25) mg/dL Glucose 101 H (74-99) mg/dL POC Glucose (mg/dL) (75-99) mg/dL Calcium 8.0 L (8.4-10.2) mg/dL Magnesium 1.4 L (1.6-2.3) mg/dL Alkaline Phosphatase 25 L (38-126) U/L Total Protein 5.5 L (6.3-8.2) g/dL Arterial Blood Potassium (3.4-4.5) mmol/L Arterial Blood Glucose (75-99) mg/dL Crossmatch 04/14/21 04/14/21 04/14/21 Range/Units 14:34 16:43 16:45 WBC 12.7 H (3.8-10.6) k/uL RBC 3.17 L (4.30-5.90) m/uL Hgb 9.9 L (13.0-17.5) gm/dL Hct 28.1 L (39.0-53.0) % Plt Count (150-450) k/uL Neutrophils # 10.3 H (1.3-7.7) k/uL Lymphocytes # (1.0-4.8) k/uL PT (9.0-12.0) sec INR (<1.2) ABG pH 7.28 L (7.35-7.45) ABG pCO2 48 H (35-45) mmHg ABG pO2 284 H (83-108) mmHg ABG Total CO2 (19-24) mmol/L ABG O2 Saturation 99.1 H (94-97) % ABG Hematocrit (34.0-46.0) % ABG Potassium (3.4-4.5) mmol/L ABG Glucose (75-99) mg/dL Hemoglobin (13.0-17.5) gm/dL Sodium (137-145) mmol/L Chloride (98-107) mmol/L Carbon Dioxide (22-30) mmol/L BUN (9-20) mg/dL Creatinine (0.66-1.25) mg/dL Glucose (74-99) mg/dL POC Glucose (mg/dL) 133 H (75-99) mg/dL Calcium (8.4-10.2) mg/dL Magnesium (1.6-2.3) mg/dL Alkaline Phosphatase (38-126) U/L Total Protein (6.3-8.2) g/dL Arterial Blood Potassium (3.4-4.5) mmol/L Arterial Blood Glucose (75-99) mg/dL Crossmatch 04/14/21 04/14/21 04/14/21 Range/Units 18:05 18:59 19:57 WBC (3.8-10.6) k/uL RBC (4.30-5.90) m/uL Hgb (13.0-17.5) gm/dL Hct (39.0-53.0) % Plt Count (150-450) k/uL Neutrophils # (1.3-7.7) k/uL Lymphocytes # (1.0-4.8) k/uL PT (9.0-12.0) sec INR (<1.2) ABG pH (7.35-7.45) ABG pCO2 (35-45) mmHg ABG pO2 (83-108) mmHg ABG Total CO2 (19-24) mmol/L ABG O2 Saturation (94-97) % ABG Hematocrit (34.0-46.0) % ABG Potassium (3.4-4.5) mmol/L ABG Glucose (75-99) mg/dL Hemoglobin (13.0-17.5) gm/dL Sodium (137-145) mmol/L Chloride (98-107) mmol/L Carbon Dioxide (22-30) mmol/L BUN (9-20) mg/dL Creatinine (0.66-1.25) mg/dL Glucose (74-99) mg/dL POC Glucose (mg/dL) 119 H 126 H 124 H (75-99) mg/dL Calcium (8.4-10.2) mg/dL Magnesium (1.6-2.3) mg/dL Alkaline Phosphatase (38-126) U/L Total Protein (6.3-8.2) g/dL Arterial Blood Potassium (3.4-4.5) mmol/L Arterial Blood Glucose (75-99) mg/dL Crossmatch 04/14/21 04/14/21 04/14/21 Range/Units 20:25 21:03 22:54 WBC (3.8-10.6) k/uL RBC 2.88 L (4.30-5.90) m/uL Hgb 8.8 L (13.0-17.5) gm/dL Hct 25.7 L (39.0-53.0) % Plt Count 122 L (150-450) k/uL Neutrophils # 8.1 H (1.3-7.7) k/uL Lymphocytes # 0.6 L (1.0-4.8) k/uL PT (9.0-12.0) sec INR (<1.2) ABG pH (7.35-7.45) ABG pCO2 (35-45) mmHg ABG pO2 (83-108) mmHg ABG Total CO2 (19-24) mmol/L ABG O2 Saturation (94-97) % ABG Hematocrit (34.0-46.0) % ABG Potassium (3.4-4.5) mmol/L ABG Glucose (75-99) mg/dL Hemoglobin (13.0-17.5) gm/dL Sodium (137-145) mmol/L Chloride (98-107) mmol/L Carbon Dioxide (22-30) mmol/L BUN (9-20) mg/dL Creatinine (0.66-1.25) mg/dL Glucose (74-99) mg/dL POC Glucose (mg/dL) 122 H 120 H (75-99) mg/dL Calcium (8.4-10.2) mg/dL Magnesium (1.6-2.3) mg/dL Alkaline Phosphatase (38-126) U/L Total Protein (6.3-8.2) g/dL Arterial Blood Potassium (3.4-4.5) mmol/L Arterial Blood Glucose (75-99) mg/dL Crossmatch 04/15/21 04/15/21 04/15/21 Range/Units 01:29 03:06 03:07 WBC (3.8-10.6) k/uL RBC 2.69 L (4.30-5.90) m/uL Hgb 8.3 L (13.0-17.5) gm/dL Hct 24.0 L (39.0-53.0) % Plt Count 118 L (150-450) k/uL Neutrophils # (1.3-7.7) k/uL Lymphocytes # 0.8 L (1.0-4.8) k/uL PT (9.0-12.0) sec INR (<1.2) ABG pH (7.35-7.45) ABG pCO2 (35-45) mmHg ABG pO2 (83-108) mmHg ABG Total CO2 (19-24) mmol/L ABG O2 Saturation (94-97) % ABG Hematocrit (34.0-46.0) % ABG Potassium (3.4-4.5) mmol/L ABG Glucose (75-99) mg/dL Hemoglobin (13.0-17.5) gm/dL Sodium (137-145) mmol/L Chloride (98-107) mmol/L Carbon Dioxide (22-30) mmol/L BUN (9-20) mg/dL Creatinine (0.66-1.25) mg/dL Glucose (74-99) mg/dL POC Glucose (mg/dL) 127 H 128 H (75-99) mg/dL Calcium (8.4-10.2) mg/dL Magnesium (1.6-2.3) mg/dL Alkaline Phosphatase (38-126) U/L Total Protein (6.3-8.2) g/dL Arterial Blood Potassium (3.4-4.5) mmol/L Arterial Blood Glucose (75-99) mg/dL Crossmatch 04/15/21 04/15/21 04/15/21 Range/Units 03:07 06:01 07:05 WBC (3.8-10.6) k/uL RBC (4.30-5.90) m/uL Hgb (13.0-17.5) gm/dL Hct (39.0-53.0) % Plt Count (150-450) k/uL Neutrophils # (1.3-7.7) k/uL Lymphocytes # (1.0-4.8) k/uL PT (9.0-12.0) sec INR (<1.2) ABG pH (7.35-7.45) ABG pCO2 (35-45) mmHg ABG pO2 (83-108) mmHg ABG Total CO2 (19-24) mmol/L ABG O2 Saturation (94-97) % ABG Hematocrit (34.0-46.0) % ABG Potassium (3.4-4.5) mmol/L ABG Glucose (75-99) mg/dL Hemoglobin (13.0-17.5) gm/dL Sodium 135 L (137-145) mmol/L Chloride (98-107) mmol/L Carbon Dioxide 19 L (22-30) mmol/L BUN 24 H (9-20) mg/dL Creatinine 1.32 H (0.66-1.25) mg/dL Glucose 114 H (74-99) mg/dL POC Glucose (mg/dL) 148 H 136 H (75-99) mg/dL Calcium (8.4-10.2) mg/dL Magnesium (1.6-2.3) mg/dL Alkaline Phosphatase <20 L (38-126) U/L Total Protein 5.7 L (6.3-8.2) g/dL Arterial Blood Potassium (3.4-4.5) mmol/L Arterial Blood Glucose (75-99) mg/dL Crossmatch 04/15/21 04/15/21 04/15/21 Range/Units 07:47 09:58 11:51 WBC (3.8-10.6) k/uL RBC (4.30-5.90) m/uL Hgb (13.0-17.5) gm/dL Hct (39.0-53.0) % Plt Count (150-450) k/uL Neutrophils # (1.3-7.7) k/uL Lymphocytes # (1.0-4.8) k/uL PT (9.0-12.0) sec INR (<1.2) ABG pH (7.35-7.45) ABG pCO2 (35-45) mmHg ABG pO2 (83-108) mmHg ABG Total CO2 (19-24) mmol/L ABG O2 Saturation (94-97) % ABG Hematocrit (34.0-46.0) % ABG Potassium (3.4-4.5) mmol/L ABG Glucose (75-99) mg/dL Hemoglobin (13.0-17.5) gm/dL Sodium (137-145) mmol/L Chloride (98-107) mmol/L Carbon Dioxide (22-30) mmol/L BUN (9-20) mg/dL Creatinine (0.66-1.25) mg/dL Glucose (74-99) mg/dL POC Glucose (mg/dL) 157 H 139 H 122 H (75-99) mg/dL Calcium (8.4-10.2) mg/dL Magnesium (1.6-2.3) mg/dL Alkaline Phosphatase (38-126) U/L Total Protein (6.3-8.2) g/dL Arterial Blood Potassium (3.4-4.5) mmol/L Arterial Blood Glucose (75-99) mg/dL Crossmatch Assessment and Plan Assessment: 1 Symptomatic coronary artery disease, post Off-pump CABG 4 with sequential AZUL to diagonal and LAD, left radial artery graft off AZUL to obtuse marginal, saphenous vein graft to PDA with endovascular vein harvest, Endo radial harvest, bilateral pulmonary vein ablation, occlusion of the left atrial appendage with a 35 mm AtriCure clip. The patient is currently postop day #1. The patient is extubated and on 12 L high flow nasal cannula. Hemodynamically stable with adequate cardiac output and index. The patient is making adequate urine output. The cardiac rhythm is sinus 2 Post thoracotomy, extubated and on 12 L nasal cannula. The patient is to mediastinal 1 pleural chest tube on the left 3 Hypertension 4 Hyperlipidemia 5 COPD 6 History of paroxysmal atrial fibrillation 7 Chronic cervical and neck pain 8 History of COVID 19 infection February 2021, recovered Plan: The patient was seen and evaluated Chest x-ray and labs reviewed Currently on 12 L high flow nasal cannula Titrate down the FiO2 as tolerated Continue bronchodilators Increase use of the incentive spirometer as tolerated Increase his activity as tolerated We will continue to follow and make further recommendations based on his clinical status I, the cosigning physician, performed a history & physical examination of the patient. Lungs sounds bilateral scattered rhonchi. Maintaining O2 saturations in the 90s on 12 L high flow nasal cannula. I discussed the assessment and plan of care with my nurse practitioner, Rossy Mcnulty. I attest to the above note as dictated by her. I have personally seen and examined the patient, performed the documentation and the assessment and plan as written. Number of minutes spent on the visit: 10. <Aiden Burgos - Last Filed: 04/15/21 15:30> Objective - Vital Signs Vital signs: Vital Signs Temp 98.9 F 04/15/21 12:00 Pulse 72 04/15/21 15:00 Resp 19 04/15/21 15:00 BP 115/74 04/15/21 15:00 Pulse Ox 96 04/15/21 15:05 Intake & Output 04/14/21 04/15/21 04/15/21 18:59 06:59 18:59 Intake Total 960.075 0696.590 1146.511 Output Total 1715 904 485 Balance -1003.846 910.590 661.511 Weight 99.4 kg 99.4 kg Intake: IV 699 1808 670 ACETAMINOPHEN IV (For NPO 100 ) 1,000 mg In Empty Bag 1 bag @ 400 mls/hr IVPB Q6HR [facility] Rx#:[id number] Albumin Human 5% 250 ml 1000 250 In Empty Bag 1 bag @ 250 mls/hr IVPB Q1HR PRN Rx#: [id number] CO/CI 100 0 Lactated Ringers 1,000 ml 250 600 360 @ 50 mls/hr IV .Q20H [facility] Rx#:[id number] Magnesium Sulfate-D5w Pmx 200 1 gm In Dextrose/Water 1 100ml.bag @ 100 mls/hr IVPB Q1H [facility] Rx#: [id number] Pressure Bag 45 108 60 ceFAZolin 2 gm In Sodium 50 Chloride 0.9% 50 ml @ 100 mls/hr IVPB Q8HR [facility] Rx# :[id number] Intake, IV Titration 12.154 6.590 76.511 Amount Dexmedetomidine/0.9% NaCl 9.812 67.867 (Pmx) 400 mcg In Empty Bag 1 bag @ Titrate IV . Q0M [facility] Rx#:[id number] Insulin Regular 100 unit 0.842 6.590 8.644 In Sodium Chloride 0.9% 100 ml @ Per Protocol IV .Q0M [facility] Rx#:[id number] Nitroglycerin-D5w Pmx 50 1.5 mg In Dextrose/Water 1 250ml.bag @ 5 MCG/MIN 1.5 mls/hr IV .Q24H [facility] Rx#: [id number] Oral 400 Output: Chest Tube Drainage 300 440 220 Chest Tube Bilateral 210 310 140 Mediastinal Chest Tube Left Lateral 90 130 80 Chest Drainage 20 20 0 Left Arm 20 Left Wrist 20 0 Urine 395 444 265 Estimated Blood Loss 1000 Other: Voiding Method Indwelling Catheter Indwelling Catheter Indwelling Catheter ABP, PAP, CO, CI - Last Documented Arterial Blood Pressure 134/62 Pulmonary Artery Pressure 38/19 Cardiac Output 5.6 Cardiac Index 2.7 - Labs CBC & Chem 7: 04/15/21 03:07 04/15/21 03:07 Labs: Abnormal Lab Results - Last 24 Hours (Table) 04/07/21 04/14/21 04/14/21 Range/Units 13:11 16:43 16:45 WBC 12.7 H (3.8-10.6) k/uL RBC 3.17 L (4.30-5.90) m/uL Hgb 9.9 L (13.0-17.5) gm/dL Hct 28.1 L (39.0-53.0) % Plt Count (150-450) k/uL Neutrophils # 10.3 H (1.3-7.7) k/uL Lymphocytes # (1.0-4.8) k/uL Sodium (137-145) mmol/L Carbon Dioxide (22-30) mmol/L BUN (9-20) mg/dL Creatinine (0.66-1.25) mg/dL Glucose (74-99) mg/dL POC Glucose (mg/dL) 133 H (75-99) mg/dL Alkaline Phosphatase (38-126) U/L Total Protein (6.3-8.2) g/dL Crossmatch See Detail 04/14/21 04/14/21 04/14/21 Range/Units 18:05 18:59 19:57 WBC (3.8-10.6) k/uL RBC (4.30-5.90) m/uL Hgb (13.0-17.5) gm/dL Hct (39.0-53.0) % Plt Count (150-450) k/uL Neutrophils # (1.3-7.7) k/uL Lymphocytes # (1.0-4.8) k/uL Sodium (137-145) mmol/L Carbon Dioxide (22-30) mmol/L BUN (9-20) mg/dL Creatinine (0.66-1.25) mg/dL Glucose (74-99) mg/dL POC Glucose (mg/dL) 119 H 126 H 124 H (75-99) mg/dL Alkaline Phosphatase (38-126) U/L Total Protein (6.3-8.2) g/dL Crossmatch 04/14/21 04/14/21 04/14/21 Range/Units 20:25 21:03 22:54 WBC (3.8-10.6) k/uL RBC 2.88 L (4.30-5.90) m/uL Hgb 8.8 L (13.0-17.5) gm/dL Hct 25.7 L (39.0-53.0) % Plt Count 122 L (150-450) k/uL Neutrophils # 8.1 H (1.3-7.7) k/uL Lymphocytes # 0.6 L (1.0-4.8) k/uL Sodium (137-145) mmol/L Carbon Dioxide (22-30) mmol/L BUN (9-20) mg/dL Creatinine (0.66-1.25) mg/dL Glucose (74-99) mg/dL POC Glucose (mg/dL) 122 H 120 H (75-99) mg/dL Alkaline Phosphatase (38-126) U/L Total Protein (6.3-8.2) g/dL Crossmatch 04/15/21 04/15/21 04/15/21 Range/Units 01:29 03:06 03:07 WBC (3.8-10.6) k/uL RBC 2.69 L (4.30-5.90) m/uL Hgb 8.3 L (13.0-17.5) gm/dL Hct 24.0 L (39.0-53.0) % Plt Count 118 L (150-450) k/uL Neutrophils # (1.3-7.7) k/uL Lymphocytes # 0.8 L (1.0-4.8) k/uL Sodium (137-145) mmol/L Carbon Dioxide (22-30) mmol/L BUN (9-20) mg/dL Creatinine (0.66-1.25) mg/dL Glucose (74-99) mg/dL POC Glucose (mg/dL) 127 H 128 H (75-99) mg/dL Alkaline Phosphatase (38-126) U/L Total Protein (6.3-8.2) g/dL Crossmatch 04/15/21 04/15/21 04/15/21 Range/Units 03:07 06:01 07:05 WBC (3.8-10.6) k/uL RBC (4.30-5.90) m/uL Hgb (13.0-17.5) gm/dL Hct (39.0-53.0) % Plt Count (150-450) k/uL Neutrophils # (1.3-7.7) k/uL Lymphocytes # (1.0-4.8) k/uL Sodium 135 L (137-145) mmol/L Carbon Dioxide 19 L (22-30) mmol/L BUN 24 H (9-20) mg/dL Creatinine 1.32 H (0.66-1.25) mg/dL Glucose 114 H (74-99) mg/dL POC Glucose (mg/dL) 148 H 136 H (75-99) mg/dL Alkaline Phosphatase <20 L (38-126) U/L Total Protein 5.7 L (6.3-8.2) g/dL Crossmatch 04/15/21 04/15/21 04/15/21 Range/Units 07:47 09:58 11:51 WBC (3.8-10.6) k/uL RBC (4.30-5.90) m/uL Hgb (13.0-17.5) gm/dL Hct (39.0-53.0) % Plt Count (150-450) k/uL Neutrophils # (1.3-7.7) k/uL Lymphocytes # (1.0-4.8) k/uL Sodium (137-145) mmol/L Carbon Dioxide (22-30) mmol/L BUN (9-20) mg/dL Creatinine (0.66-1.25) mg/dL Glucose (74-99) mg/dL POC Glucose (mg/dL) 157 H 139 H 122 H (75-99) mg/dL Alkaline Phosphatase (38-126) U/L Total Protein (6.3-8.2) g/dL Crossmatch 04/15/21 Range/Units 14:15 WBC (3.8-10.6) k/uL RBC (4.30-5.90) m/uL Hgb (13.0-17.5) gm/dL Hct (39.0-53.0) % Plt Count (150-450) k/uL Neutrophils # (1.3-7.7) k/uL Lymphocytes # (1.0-4.8) k/uL Sodium (137-145) mmol/L Carbon Dioxide (22-30) mmol/L BUN (9-20) mg/dL Creatinine (0.66-1.25) mg/dL Glucose (74-99) mg/dL POC Glucose (mg/dL) 68 L (75-99) mg/dL Alkaline Phosphatase (38-126) U/L Total Protein (6.3-8.2) g/dL Crossmatch Assessment and Plan Assessment: I have personally seen and examined the patient and reviewed the documentation. I performed a joint evaluation with the nurse practitioner in this evaluation was done more than 20 minutes. I fully agree with the documentation above and the plan of CARE.
[2021-04-15] MEDS: LACTATED RINGERS 1,000 ML IV SCH (14:05)
[2021-04-15 14:16] LABS: Glucose,Whole Blood 68 mg/dL (75-99)
[2021-04-15 16:10] LABS: Glucose,Whole Blood 126 mg/dL (75-99)
[2021-04-15 17:46] LABS: Glucose,Whole Blood 137 mg/dL (75-99)
[2021-04-15 20:05] LABS: Glucose,Whole Blood 141 mg/dL (75-99)
[2021-04-15] MEDS: SENNOSIDES-DOCUSATE SODIUM 1 EACH TAB PO SCH (21:16)
[2021-04-15 21:57] LABS: Glucose,Whole Blood 140 mg/dL (75-99)
[2021-04-16 00:13] LABS: Glucose,Whole Blood 123 mg/dL (75-99)
[2021-04-16] MEDS: HEPARIN SODIUM,PORCINE/PF 5,000 UNIT/0.5 ML SYRINGE SQ SCH ×3 (00:31→16:48)
[2021-04-16] MEDS: oxyCODONE-APAP 10-325MG 1 EACH TAB PO PRN ×4 (02:09→18:43)
[2021-04-16 02:13] LABS: Glucose,Whole Blood 133 mg/dL (75-99)
[2021-04-16 04:22] LABS: Glucose,Whole Blood 133 mg/dL (75-99)
[2021-04-16 04:38] LABS: Basophils % (A) 0 %; Eosinophils # (A) 0.1 k/uL (0-0.7); Eosinophils % (A) 1 %; HCT 25.1 % (39.0-53.0); HGB 8.7 gm/dL (13.0-17.5); Lymphocytes # (A) 1.4 k/uL (1.0-4.8); Lymphocytes % (A) 11 %; MCHC 34.9 g/dL (31.0-37.0); MCV 89.1 fL (80.0-100.0); Mean Platelet Volume 7.9; Monocytes # (A) 0.6 k/uL (0-1.0); Monocytes % (A) 5 %; Neutrophils # (A) 9.8 k/uL (1.3-7.7); Neutrophils % (A) 82 %; Platelet Count 154 k/uL (150-450); RBC 2.82 m/uL (4.30-5.90); RDW 12.5 % (11.5-15.5); WBC 12.1 k/uL (3.8-10.6)
[2021-04-16 04:44] LABS: Ionized Calcium 4.9 mg/dL (4.5-5.3)
[2021-04-16 04:50] LABS: African American GFR (CKD) >90 (>60 ml/min/1.73 sqM); Anion Gap 10 mmol/L; Blood Urea Nitrogen 20 mg/dL (9-20); Calcium 8.7 mg/dL (8.4-10.2); Carbon Dioxide 20 mmol/L (22-30); Chloride 103 mmol/L (98-107); Glucose 122 mg/dL (74-99); Non-African American GFR(CKD) >90 (>60 ml/min/1.73 sqM); Potassium 4.3 mmol/L (3.5-5.1); Sodium 133 mmol/L (137-145)
[2021-04-16 04:51] LABS: ALT 15 U/L (4-49); AST 68 U/L (17-59); Alkaline Phosphatase 26 U/L (38-126); Total Bilirubin 0.8 mg/dL (0.2-1.3)
[2021-04-16 06:37] LABS: Glucose,Whole Blood 132 mg/dL (75-99)
[2021-04-16] MEDS ORDERED: fentaNYL (PF) 50 MCG/ML 2 ML AMP IVP PRN (06:59)
--- NOTE | 2021-04-16 07:12 | XR ---
EXAMINATION TYPE: XR chest 1V portable DATE OF EXAM: 04/16/2021 HISTORY: Postop follow-up COMPARISON: 04/15/2021 TECHNIQUE: Single view of the chest is submitted. FINDINGS: Demonstrated are scattered senescent parenchymal change. Interval removal of Martin-Kannan catheter, left-sided chest tube and mediastinal drains. No evidence for pneumothorax. Mild basilar linear atelectasis. The heart is stable. Hilar and mediastinal structures are within normal limits. Degenerative changes are seen of the dorsal spine. IMPRESSION: 1. Interval removal of Martin-Kannan catheter, left-sided chest tube and mediastinal drains. No evidence for pneumothorax. Mild basilar linear atelectasis.
[2021-04-16] MEDS: LACTATED RINGERS 1,000 ML IV SCH (07:17)
[2021-04-16] MEDS: PANTOPRAZOLE 40 MG TABLET PO SCH (08:00)
[2021-04-16] MEDS: AMIODARONE 200 MG TAB PO SCH ×2 (08:00→21:27)
[2021-04-16] MEDS: FOLIC ACID-VIT B COMPLEX-VIT C 1 CAP PO SCH (08:01)
[2021-04-16] MEDS: ASPIRIN 325 MG TAB PO SCH (08:01)
[2021-04-16] MEDS: ATORVASTATIN 40 MG TAB PO SCH (08:01)
[2021-04-16] MEDS: METOPROLOL TARTRATE 12.5 MG TAB PO SCH (08:01)
[2021-04-16] MEDS: CLOPIDOGREL 75 MG TAB PO SCH (08:01)
[2021-04-16] MEDS: MULTIVITAMINS, THERA 1 EACH TAB PO SCH (08:02)
[2021-04-16] MEDS: IPRATROPIUM-ALBUTEROL 3 ML NEB INHALATION SCH ×4 (08:08→18:55)
--- NOTE | 2021-04-16 09:14 | P.PN ---
Subjective Progress Note Date: 04/16/21 Principal diagnosis: Coronary artery disease, unstable angina. Past medical history significant for hypertension, hyperlipidemia, paroxysmal atrial fibrillation, EtOH abuse with h istory of withdrawal, last drink in September 2020, chronic tobacco dependence, COPD, anxiety/depression, remote history of pneumonia, medical noncompliance, and family history of coronary artery disease. Vaccinated but not boosted against Covid-19. POD #2 off-pump CABG 4 with sequential left internal mammary artery to the diagonal coronary artery and the left anterior descending coronary artery, left radial artery T graft off the AZUL to the obtuse marginal coronary artery, saphenous vein graft to the posterior descending coronary artery with endoscopic vein harvest, endoscopic radial artery harvest, bilateral pulmonary vein ablation, occlusion of the left atrial appendage was a 35 mm AtriCure clip, epi- aortic ultrasound, intraoperative transesophageal echocardiogram performed by anesthesia. Acute blood loss anemia and thrombocytopenia, expected given hemodilution. Hypotension, unexpected, resolved. The patient was seen in follow-up today April at his bedside in the intensive care unit. Currently sitting up to the bedside chair, is awake, alert, oriented 3 and is in no acute apparent distress. The patient denies any complaints of shortness of breath this time although is complaining of some surgical type pain and he is rating his pain 5-6 out of 10 on the pain scale. Oxygen saturation are 95% on 10 L high flow nasal cannula and he is achieving 1000 mL on his incentive spirometry with encouragement. Bedside telemetry showing normal sinus rhythm heart rate 85 BPM. His chest tubes were removed yesterday without incident. Right IJ cordis remains in place with continuous CVP monitoring, current CVP pressure 9 mmHg. Right radial arterial line remains in place and functioning. The patient reports she has been up ambulating in the intensive care unit with minimal assistance from nursing and therapy staff. No new concerns. Objective - Vital Signs Vital signs: Vital Signs Temp 98.5 F 04/16/21 04:00 Pulse 88 04/16/21 07:00 Resp 19 04/16/21 07:00 BP 131/74 04/16/21 07:00 Pulse Ox 95 04/16/21 07:00 Intake & Output 04/15/21 04/16/21 04/16/21 18:59 06:59 18:59 Intake Total 1730.511 660.510 6 Output Total 710 795 45 Balance 1020.511 -134.490 -39 Weight 99.4 kg 102.3 kg Intake: IV 854 152 6 Albumin Human 5% 250 ml 250 In Empty Bag 1 bag @ 250 mls/hr IVPB Q1HR PRN Rx#: [id number] CO/CI 0 Lactated Ringers 1,000 ml 520 80 @ 50 mls/hr IV .Q20H [facility] Rx#:[id number] Pressure Bag 84 72 6 Intake, IV Titration 76.511 8.510 Amount Dexmedetomidine/0.9% NaCl 67.867 (Pmx) 400 mcg In Empty Bag 1 bag @ Titrate IV . Q0M [facility] Rx#:[id number] Insulin Regular 100 unit 8.644 8.510 In Sodium Chloride 0.9% 100 ml @ Per Protocol IV .Q0M [facility] Rx#:[id number] Oral 800 500 Output: Chest Tube Drainage 220 Chest Tube Bilateral 140 Mediastinal Chest Tube Left Lateral 80 Chest Drainage 0 Left Wrist 0 Urine 490 795 45 Other: Voiding Method Indwelling Catheter Indwelling Catheter ABP, PAP, CO, CI - Last Documented Arterial Blood Pressure 154/58 Pulmonary Artery Pressure 38/19 Cardiac Output 5.6 Cardiac Index 2.7 - Exam CONSTITUTIONAL: Sitting up to the bedside chair in the intensive care unit, appears comfortable, cooperative, no apparent acute distress. HEENT: Neck is supple, no JVD, no lymphadenopathy. Right IJ Cordis in place and functioning. RESPIRATORY: Lungs sounds essentially clear throughout, diminished to his bilateral bases. Respirations are symmetrical and nonlabored. Currently on 10 L high flow nasal cannula with oxygen saturations 95%. Able to achieve 1000 mL on his incentive spirometry. Strong cough. CARDIOVASCULAR: Regular rhythm and rate. S1 and S2 present, negative for S3, gallop or murmur. Sternum is stable. Palpable peripheral pulses bilaterally. No calf pain or tenderness noted. Heart hugger in place with patient demonstrating appropriate use. Knee-high YULIYA hose and sequential compression devices in place to his bilateral lower extremities. GASTROINTESTINAL: Abdomen soft, nontender, nondistended. Active bowel sounds present 4 quadrants. Tolerating diet. Passing flatus. No guarding or rigidity. GENITOURINARY: Humphries present draining clear, yellow urine. Output 430 mL in the last 8 hours. INTEGUMENTARY: Skin is warm and dry with no evidence of clubbing or cyanosis. Midline sternal incision clean dry and well approximated, covered with dry intact dressing. Right lower extremity EVH sites well approximated without redness or drainage. Left arm radial artery harvest sites clean, dry and approximated. No drainage or redness is present. NEUROLOGIC: Cranial nerves II through XII intact. No focal deficits. MUSKULOSKELETAL: Able to move all extremities, strength equal bilaterally, generalized weakness. PSYCHIATRIC: Alert and oriented to person place and time, appropriate affect, intact judgment and insight. INVASIVE LINES AND TUBES: Right internal jugular Cordis, right radial arterial line present. Current CVP 9 mmHg. - Allied health notes Allied health notes reviewed: nursing - Labs CBC & Chem 7: 04/16/21 04:25 04/16/21 04:25 Labs: Abnormal Lab Results - Last 24 Hours (Table) 04/15/21 04/15/21 04/15/21 Range/Units 09:58 11:51 14:15 WBC (3.8-10.6) k/uL RBC (4.30-5.90) m/uL Hgb (13.0-17.5) gm/dL Hct (39.0-53.0) % Neutrophils # (1.3-7.7) k/uL Sodium (137-145) mmol/L Carbon Dioxide (22-30) mmol/L Glucose (74-99) mg/dL POC Glucose (mg/dL) 139 H 122 H 68 L (75-99) mg/dL AST (17-59) U/L Alkaline Phosphatase (38-126) U/L Total Protein (6.3-8.2) g/dL 04/15/21 04/15/21 04/15/21 Range/Units 16:08 17:44 20:04 WBC (3.8-10.6) k/uL RBC (4.30-5.90) m/uL Hgb (13.0-17.5) gm/dL Hct (39.0-53.0) % Neutrophils # (1.3-7.7) k/uL Sodium (137-145) mmol/L Carbon Dioxide (22-30) mmol/L Glucose (74-99) mg/dL POC Glucose (mg/dL) 126 H 137 H 141 H (75-99) mg/dL AST (17-59) U/L Alkaline Phosphatase (38-126) U/L Total Protein (6.3-8.2) g/dL 04/15/21 04/16/21 04/16/21 Range/Units 21:55 00:12 02:12 WBC (3.8-10.6) k/uL RBC (4.30-5.90) m/uL Hgb (13.0-17.5) gm/dL Hct (39.0-53.0) % Neutrophils # (1.3-7.7) k/uL Sodium (137-145) mmol/L Carbon Dioxide (22-30) mmol/L Glucose (74-99) mg/dL POC Glucose (mg/dL) 140 H 123 H 133 H (75-99) mg/dL AST (17-59) U/L Alkaline Phosphatase (38-126) U/L Total Protein (6.3-8.2) g/dL 04/16/21 04/16/21 04/16/21 Range/Units 04:20 04:25 04:25 WBC 12.1 H (3.8-10.6) k/uL RBC 2.82 L (4.30-5.90) m/uL Hgb 8.7 L (13.0-17.5) gm/dL Hct 25.1 L (39.0-53.0) % Neutrophils # 9.8 H (1.3-7.7) k/uL Sodium 133 L (137-145) mmol/L Carbon Dioxide 20 L (22-30) mmol/L Glucose 122 H (74-99) mg/dL POC Glucose (mg/dL) 133 H (75-99) mg/dL AST 68 H (17-59) U/L Alkaline Phosphatase 26 L (38-126) U/L Total Protein 6.0 L (6.3-8.2) g/dL 04/16/21 Range/Units 06:35 WBC (3.8-10.6) k/uL RBC (4.30-5.90) m/uL Hgb (13.0-17.5) gm/dL Hct (39.0-53.0) % Neutrophils # (1.3-7.7) k/uL Sodium (137-145) mmol/L Carbon Dioxide (22-30) mmol/L Glucose (74-99) mg/dL POC Glucose (mg/dL) 132 H (75-99) mg/dL AST (17-59) U/L Alkaline Phosphatase (38-126) U/L Total Protein (6.3-8.2) g/dL - Imaging and Cardiology Chest x-ray: report reviewed, image reviewed Assessment and Plan Assessment: 1. Coronary artery disease, unstable angina, status post four-vessel off-pump CABG 2. History of hypertension, currently hypotensive 3. Hyperlipidemia, treated, cholesterol 152, LDL 83 4. Paroxysmal atrial fibrillation, status post left atrial appendage ligation as well as bilateral pulmonary vein ablation 5. EtOH abuse with history of withdrawal, last drink in September 2020 6. Chronic tobacco dependence, quit smoking cigarettes, still vapes 7. COPD, preoperative FEV1 97% of predicted 8. Anxiety/depression, follows with [facility] 9. Remote history of pneumonia 10. History of medical noncompliance 11. Family history of coronary artery disease 12. Vaccinated but not boosted against Covid-19. Positive Covid-19 in February 2021 13. Acute blood loss anemia and thrombocytopenia, expected Plan: 1. Continue aspirin, statin, Plavix, and beta lurdes. Will increase metoprolol tartrate 25 mg by mouth twice a day. Hold parameters on beta block ers. 2. Continue amiodarone 200 mg by mouth twice a day for A. fib prophylaxis. 3. Wean O2 as tolerated. Encourage incentive spirometry 10 times every hour while awake. Bronchodilators per pulmonology. 4. Increase activity, ambulate as tolerated. PT/OT/cardiac rehab following. 5. Will monitor daily labs and chest x-rays. Electrolyte replacement per protocol. 6. GI/DVT prophylaxis. 7. Pain control with current medication regimen. 8. Discontinue right IJ Cordis. 9. Remove right radial arterial line. 10. Continue to record strict and accurate I's and O's. Daily weights. 11. Insulin management per internal medicine service. Patient is not diabetic, preoperative hemoglobin A1c 6%, however he does need tight blood sugar control to promote sternal union and prevent infection. 12. Smoking cessation counseling reinforced with patient, continue to encourage complete smoking cessation. 13. First postoperative day shower today. 14. More recommendations to follow based on patient's clinical course. Time with Patient: Greater than 30
[2021-04-16 12:01] LABS: Glucose,Whole Blood 101 mg/dL (75-99)
--- NOTE | 2021-04-16 12:50 | P.PN ---
Subjective Progress Note Date: 04/16/21 The patient was interviewed and examined sitting in his recliner chair. He is currently in pain. He states this is somewhere between 7 and 8 out of 10. This is the second time onto the recliner chair. He states he did ambulate last evening. He does have chest discomfort, likely secondary to sternal incision. No heart racing or fluttering. Occasional dizziness when he stands up abruptly. No shortness of breath. GENERAL: Well-appearing, well-nourished. NECK: Supple without JVD or thyromegaly. LUNGS: Breath sounds clear to auscultation bilaterally. Respiration equal and unlabored. No wheezes, rales or rhonchi. HEART: Regular rate and rhythm without murmurs, rubs or gallops. S1 and S2 heard. EXTREMITIES: Normal range of motion, no edema. No clubbing or cyanosis. Peripheral pulses intact and strong. YULIYA hose in place. VITALS: Blood pressure 135/65, SpO2 96% on 11 L high flow nasal cannula, pulse rate 86, temp 98.2F TELEMETRY: Sinus rhythm to sinus tachycardia LABS: WBC 12.1, hemoglobin 8.7, hematocrit 25.1, platelet 154, sodium 133, potassium 4.3, BUN 20, creatinine 0.84 IMPRESSION: Coronary artery disease status post CABG 4 Left atrial appendage ligation and bilateral pulmonary vein ablation Hypertension Chronic tobacco use PLAN: No changes to medication regimen Continue supportive care Further recommendations will be based on clinical course I am dictating on behalf of Dr Epifanio Lee's history/physical and assessment/plan. Objective - Vital Signs Vital signs: Vital Signs Temp 98.2 F 04/16/21 08:00 Pulse 86 04/16/21 09:00 Resp 9 L 04/16/21 09:00 BP 135/65 04/16/21 09:00 Pulse Ox 96 04/16/21 09:00 Intake & Output 04/15/21 04/16/21 04/16/21 18:59 06:59 18:59 Intake Total 1730.511 660.510 318 Output Total 710 795 45 Balance 1020.511 -134.490 273 Weight 99.4 kg 102.3 kg Intake: IV 854 152 78 Albumin Human 5% 250 ml 250 In Empty Bag 1 bag @ 250 mls/hr IVPB Q1HR PRN Rx#: [id number] CO/CI 0 Lactated Ringers 1,000 ml 520 80 60 @ 50 mls/hr IV .Q20H [facility] Rx#:[id number] Pressure Bag 84 72 18 Intake, IV Titration 76.511 8.510 Amount Dexmedetomidine/0.9% NaCl 67.867 (Pmx) 400 mcg In Empty Bag 1 bag @ Titrate IV . Q0M [facility] Rx#:[id number] Insulin Regular 100 unit 8.644 8.510 In Sodium Chloride 0.9% 100 ml @ Per Protocol IV .Q0M [facility] Rx#:[id number] Oral 800 500 240 Output: Chest Tube Drainage 220 Chest Tube Bilateral 140 Mediastinal Chest Tube Left Lateral 80 Chest Drainage 0 Left Wrist 0 Urine 490 795 45 Other: Voiding Method Indwelling Catheter Indwelling Catheter Indwelling Catheter ABP, PAP, CO, CI - Last Documented Arterial Blood Pressure 151/55 Pulmonary Artery Pressure 38/19 Cardiac Output 5.6 Cardiac Index 2.7 - Labs CBC & Chem 7: 04/16/21 04:25 04/16/21 04:25 Labs: Abnormal Lab Results - Last 24 Hours (Table) 04/15/21 04/15/21 04/15/21 Range/Units 14:15 16:08 17:44 WBC (3.8-10.6) k/uL RBC (4.30-5.90) m/uL Hgb (13.0-17.5) gm/dL Hct (39.0-53.0) % Neutrophils # (1.3-7.7) k/uL Sodium (137-145) mmol/L Carbon Dioxide (22-30) mmol/L Glucose (74-99) mg/dL POC Glucose (mg/dL) 68 L 126 H 137 H (75-99) mg/dL AST (17-59) U/L Alkaline Phosphatase (38-126) U/L Total Protein (6.3-8.2) g/dL 04/15/21 04/15/21 04/16/21 Range/Units 20:04 21:55 00:12 WBC (3.8-10.6) k/uL RBC (4.30-5.90) m/uL Hgb (13.0-17.5) gm/dL Hct (39.0-53.0) % Neutrophils # (1.3-7.7) k/uL Sodium (137-145) mmol/L Carbon Dioxide (22-30) mmol/L Glucose (74-99) mg/dL POC Glucose (mg/dL) 141 H 140 H 123 H (75-99) mg/dL AST (17-59) U/L Alkaline Phosphatase (38-126) U/L Total Protein (6.3-8.2) g/dL 04/16/21 04/16/21 04/16/21 Range/Units 02:12 04:20 04:25 WBC 12.1 H (3.8-10.6) k/uL RBC 2.82 L (4.30-5.90) m/uL Hgb 8.7 L (13.0-17.5) gm/dL Hct 25.1 L (39.0-53.0) % Neutrophils # 9.8 H (1.3-7.7) k/uL Sodium (137-145) mmol/L Carbon Dioxide (22-30) mmol/L Glucose (74-99) mg/dL POC Glucose (mg/dL) 133 H 133 H (75-99) mg/dL AST (17-59) U/L Alkaline Phosphatase (38-126) U/L Total Protein (6.3-8.2) g/dL 04/16/21 04/16/21 04/16/21 Range/Units 04:25 06:35 12:00 WBC (3.8-10.6) k/uL RBC (4.30-5.90) m/uL Hgb (13.0-17.5) gm/dL Hct (39.0-53.0) % Neutrophils # (1.3-7.7) k/uL Sodium 133 L (137-145) mmol/L Carbon Dioxide 20 L (22-30) mmol/L Glucose 122 H (74-99) mg/dL POC Glucose (mg/dL) 132 H 101 H (75-99) mg/dL AST 68 H (17-59) U/L Alkaline Phosphatase 26 L (38-126) U/L Total Protein 6.0 L (6.3-8.2) g/dL
[2021-04-16] MEDS: INSULIN ASPART (NovoLOG) 100 UNIT/ML VIAL SQ SCH ×3 (13:01→21:25)
[2021-04-16] MEDS: METOPROLOL TARTRATE 25 MG TAB PO SCH ×2 (13:02→21:28)
--- NOTE | 2021-04-16 13:49 | P.PN ---
Subjective Progress Note Date: 04/16/21 [id number] male patient with symptomatic coronary artery disease and underwent off-pump coronary artery bypass surgery 4 with AZUL to diagonal and LAD and left radial to graft off AZUL to obtuse marginal and saphenous vein graft to PDA. The patient also underwent a left atrial clipping. He does have history of CAD approximately atrial fibrillation. Is a smoker and has COPD. I saw the patient may definitely rub. In the ICU. The patient was sedated on propofol which was running at 30 mg/kg per minute. The patient is a Cardizem drip for protocol at 5 mg an hour for radial artery harvesting and the patient will be started on amiodarone drip for A. fib prophylaxis. The patient did have one episode of atrial fibrillation intraoperatively currently is in sinus rhythm. He is on a mechanical ventilator assist control mode with tidal volume of 500 and rate of 14 with an FiO2 of 60% with a PEEP of 10. The blood gases on 100% FiO2 showed a pH of 7.27 with a pCO2 of 48 and pO2 of 284. Chest x-ray shows adequate expansion of both lungs. No evidence of any pneumothorax. The patient has 2 mediastinal chest tubes drained approximately 50 mL since or and 1 pleural chest tube on the left drained 20 mL since or. The patient is on no pressors. Cardiac output is areas 4. with an index of 2.3 and the pulmonary artery pressures are 31/16. The patient is on this is a total of 2 L of albumin postop. Adequate urine output for now. The patient is seen today 04/15/2021 in follow-up in the intensive care unit. This is postoperative day #1 of a off-pump coronary artery bypass surgery 4. He was successfully extubated within the 6 hour window yesterday. Currently sitting up in a chair. Awake and alert in no acute distress. Still having some issues with pain management. He is still requiring 12 L high flow nasal cannula to maintain O2 saturations in the 90s. He is on insulin at 1.5 units per hour. Lactated Ringer's at 50 mL per hour. He was having some issues with hypotension and has received albumin 4. Cardiac output 5.6. Cardiac index 2.7. PA pressures 38/19. CVP 16. Chest x-ray reveals persistent but improving basilar strandy densities most likely atelectasis. Pulling approximately 1000 on the incentive spirometer. Mediastinal chest tube had 470 mls serosanguineous fluid out to surgery. Left pleural chest tube 270 mL polyp surgery. Both wall suctio n. No air leaks present. Right IJ Hamilton-Kannan catheter in place. Right radial arterial line in place. White count 7.4. Hemoglobin 8.3. Platelet count 118,000. Sodium 135. Potassium 4.8. Chloride 106. Bicarb 19. BUN 24. Creatinine 1.2. He remains on bronchodilators. Heparin for DVT prophylaxis. . 04/16/2021, the patient is being seen for a follow-up. The patient is postop day #2. The patient is post coronary bypass surgery 4. The patient is on 8 L of oxygen by nasal cannula and this was weaned down to 5 L. His chest x-ray showing adequate expansion of the lungs and there is no evidence of any pneumothorax. The patient's chest tubes have been removed. Hamilton-Kannan catheter is also been removed. The patient is using incentive spirometer, pulling approximately 1500. Otherwise, no other significant complaints. Moving all 4 extremity is without any limitation. He has some surgical pain along the surgical wound site which is in the order of 5 out of 10 in severity. CVP t esau's at 9. He did ambulate yesterday. His hemoglobin is at 8.7 with a platelet count of 154. Sodium is at 133, BUN is at 20 with a creatinine of 0.8. Glucose is 122. Objective - Vital Signs Vital signs: Vital Signs Temp 98.2 F 04/16/21 08:00 Pulse 86 04/16/21 09:00 Resp 9 L 04/16/21 09:00 BP 135/65 04/16/21 09:00 Pulse Ox 96 04/16/21 09:00 Intake & Output 04/15/21 04/16/21 04/16/21 18:59 06:59 18:59 Intake Total 1730.511 660.510 318 Output Total 710 795 45 Balance 1020.511 -134.490 273 Weight 99.4 kg 102.3 kg Intake: IV 854 152 78 Albumin Human 5% 250 ml 250 In Empty Bag 1 bag @ 250 mls/hr IVPB Q1HR PRN Rx#: [id number] CO/CI 0 Lactated Ringers 1,000 ml 520 80 60 @ 50 mls/hr IV .Q20H [facility] Rx#:[id number] Pressure Bag 84 72 18 Intake, IV Titration 76.511 8.510 Amount Dexmedetomidine/0.9% NaCl 67.867 (Pmx) 400 mcg In Empty Bag 1 bag @ Titrate IV . Q0M [facility] Rx#:[id number] Insulin Regular 100 unit 8.644 8.510 In Sodium Chloride 0.9% 100 ml @ Per Protocol IV .Q0M [facility] Rx#:[id number] Oral 800 500 240 Output: Chest Tube Drainage 220 Chest Tube Bilateral 140 Mediastinal Chest Tube Left Lateral 80 Chest Drainage 0 Left Wrist 0 Urine 490 795 45 Other: Voiding Method Indwelling Catheter Indwelling Catheter Indwelling Catheter ABP, PAP, CO, CI - Last Documented Arterial Blood Pressure 151/55 Pulmonary Artery Pressure 38/19 Cardiac Output 5.6 Cardiac Index 2.7 - Exam CONSTITUTIONAL: Sitting up to the bedside chair in the intensive care unit, appears comfortable, cooperative, no apparent acute distress. HEENT: Neck is supple, no JVD, no lymphadenopathy. Right IJ Cordis in place and functioning. RESPIRATORY: Lungs sounds essentially clear throughout, diminished to his bilateral bases. Respirations are symmetrical and nonlabored. Currently on 10 L high flow nasal cannula with oxygen saturations 95%. Able to achieve 1000 mL on his incentive spirometry. Strong cough. CARDIOVASCULAR: Regular rhythm and rate. S1 and S2 present, negative for S3, gallop or murmur. Sternum is stable. Palpable peripheral pulses bilaterally. No calf pain or tenderness noted. Heart hugger in place with patient demonstrating appropriate use. Knee-high YULIYA hose and sequential compression devices in place to his bilateral lower extremities. GASTROINTESTINAL: Abdomen soft, nontender, nondistended. Active bowel sounds present 4 quadrants. Tolerating diet. Passing flatus. No guarding or rigidity. GENITOURINARY: Humphries present draining clear, yellow urine. Output 430 mL in the last 8 hours. INTEGUMENTARY: Skin is warm and dry with no evidence of clubbing or cyanosis. Midline sternal incision clean dry and well approximated, covered with dry intact dressing. Right lower extremity EVH sites well approximated without redness or drainage. Left arm radial artery harvest sites clean, dry and approximated. No drainage or redness is present. NEUROLOGIC: Cranial nerves II through XII intact. No focal deficits. MUSKULOSKELETAL: Able to move all extremities, strength equal bilaterally, g eneralized weakness. PSYCHIATRIC: Alert and oriented to person place and time, appropriate affect, intact judgment and insight. INVASIVE LINES AND TUBES: Right internal jugular Cordis, right radial arterial line present. Current CVP 9 mmHg. - Labs CBC & Chem 7: 04/16/21 04:25 04/16/21 04:25 Labs: Abnormal Lab Results - Last 24 Hours (Table) 04/15/21 04/15/21 04/15/21 Range/Units 14:15 16:08 17:44 WBC (3.8-10.6) k/uL RBC (4.30-5.90) m/uL Hgb (13.0-17.5) gm/dL Hct (39.0-53.0) % Neutrophils # (1.3-7.7) k/uL Sodium (137-145) mmol/L Carbon Dioxide (22-30) mmol/L Glucose (74-99) mg/dL POC Glucose (mg/dL) 68 L 126 H 137 H (75-99) mg/dL AST (17-59) U/L Alkaline Phosphatase (38-126) U/L Total Protein (6.3-8.2) g/dL 04/15/21 04/15/21 04/16/21 Range/Units 20:04 21:55 00:12 WBC (3.8-10.6) k/uL RBC (4.30-5.90) m/uL Hgb (13.0-17.5) gm/dL Hct (39.0-53.0) % Neutrophils # (1.3-7.7) k/uL Sodium (137-145) mmol/L Carbon Dioxide (22-30) mmol/L Glucose (74-99) mg/dL POC Glucose (mg/dL) 141 H 140 H 123 H (75-99) mg/dL AST (17-59) U/L Alkaline Phosphatase (38-126) U/L Total Protein (6.3-8.2) g/dL 04/16/21 04/16/21 04/16/21 Range/Units 02:12 04:20 04:25 WBC 12.1 H (3.8-10.6) k/uL RBC 2.82 L (4.30-5.90) m/uL Hgb 8.7 L (13.0-17.5) gm/dL Hct 25.1 L (39.0-53.0) % Neutrophils # 9.8 H (1.3-7.7) k/uL Sodium (137-145) mmol/L Carbon Dioxide (22-30) mmol/L Glucose (74-99) mg/dL POC Glucose (mg/dL) 133 H 133 H (75-99) mg/dL AST (17-59) U/L Alkaline Phosphatase (38-126) U/L Total Protein (6.3-8.2) g/dL 04/16/21 04/16/21 04/16/21 Range/Units 04:25 06:35 12:00 WBC (3.8-10.6) k/uL RBC (4.30-5.90) m/uL Hgb (13.0-17.5) gm/dL Hct (39.0-53.0) % Neutrophils # (1.3-7.7) k/uL Sodium 133 L (137-145) mmol/L Carbon Dioxide 20 L (22-30) mmol/L Glucose 122 H (74-99) mg/dL POC Glucose (mg/dL) 132 H 101 H (75-99) mg/dL AST 68 H (17-59) U/L Alkaline Phosphatase 26 L (38-126) U/L Total Protein 6.0 L (6.3-8.2) g/dL Assessment and Plan Plan: 1 Symptomatic coronary artery disease, post Off-pump CABG 4 with sequential AZUL to diagonal and LAD, left radial artery graft off AZUL to obtuse marginal, saphenous vein graft to PDA with endovascular vein harvest, Endo radial harvest, bilateral pulmonary vein ablation, occlusion of the left atrial appendage with a 35 mm AtriCure clip. The patient is currently postop day #2. The patient is extubated and on 10 L high flow nasal cannula. Hemodynamically stable with adequate cardiac output and index. The patient is making adequate urine output. The cardiac rhythm is sinus 2 Post thoracotomy, extubated and on 10 L of oxygen by nasal cannula. Chest tubes are removed. Chest x-ray shows stable findings. 3 Hypertension 4 Hyperlipidemia 5 COPD 6 History of paroxysmal atrial fibrillation 7 Chronic cervical and neck pain 8 History of COVID 19 infection February 2021, recovered Plan Continue aspirin and Plavix Metoprolol 25 mg twice a day Amiodarone 200 mg twice a day FiO2 has been weaned down to 5 L Continue using incentive spirometer and ambulate the patient We'll discontinue the right IJ Cordis Sliding scale insulin coverage Pain control We'll transfer this patient to telemetry cardiac unit at a later stage
--- NOTE | 2021-04-16 14:50 | P.PN ---
Subjective Progress Note Date: 04/16/21 This is a pleasant 55-year-old male who was recently admitted under cardio- thoracic surgery services with a past medical history of coronary artery disease, unstable angina, hypertension, hyperlipidemia, paroxysmal atrial fibrillation, chronic nicotine dependence, COPD, anxiety depression, recent EtOH abuse with his reported last drink approximately 6 months ago. Patient is postop day #1 status post CABG and is being closely monitored currently in the ICU. We are consulted for medical management. Patient was recently extubated yesterday afternoon and is currently sitting up in the recliner. Patient reports to generalized pain throughout mostly feelings of pain in the substernal area. Heart hugger noted. Patient with incentive spirometer at the bedside and encourage the patient to continue using at least 10 times every hour while awake. Patient is being started on diet of clear liquids and is currently maintained on insulin drip per ICU protocol. Once advanced diet as tolerated patient may be transitioned to Accu-Cheks before meals and at bedtime along with sliding scale as needed for tight glycemic control. Patient does not have history of diabetes mellitus per the patient. Chest x-ray today shows persistent but improving basilar strandy densities felt to reflect atelectasis with pleural effusion unchanged. Labs this morning reveal a WBC of 7.4, hemoglobin is 8.3, platelets are 118, sodium is 135, potassium 4.8, BUN 24, creatinine 1.32, calcium 8.6, magnesium 2.1. 04/16/2021 Patient today sitting up in the chair. He is postop day #2 4 vessel coronary artery bypass grafting. Complains of feeling generalized pain and aches all over. Also complains of midsternal pain and discomfort, post surgical, per RN pain medications are being adjusted by primary team. Having some shortness of breath worse with ambulation. He has walked in the hallway. No BM but is passing gas. He is tolerating a regular diet and was transitioned off of insulin drip this morning. He continues now on NovoLog sliding scale and blood sugars are in the 130s. Continue to monitor closely patient may require mealtime insulin if his glucose increases. Labs today show a white count 12.1, hemoglobin 8.7, sodium 133, potassium 4.3, CO2 20, AST 68, alk phos 26. Patient has remained afebrile, heart rate 89, respirations 32, blood pressure 132/80, 94% on 3L NC. Chest xray today shows mild basilar linear atelectasis. Humphries catheter and chest tubes are out. Patient encouraged to ambulate and continue to use incentive spirometer. Review of Systems Constitutional: Reports fatigue denied any fever. Cardio vascular: denied any chest pain, palpitations. Reports post surgical chest discomfort Gastrointestinal: denied any nausea, vomiting, diarrhea, no BM, passing gas Pulmonary: Reports shortness of breath, no cough Neurologic denied any new focal deficits All inpatient medications were reviewed and appropriate changes in these medications as dictated in the interval history and assessment and plan. PHYSICAL EXAMINATION: GENERAL: The patient is alert and oriented x4, Well developed, well nourished. Obese, slightly anxious HEENT: Pupils are round and equally reacting to light. EOMI. does have scleral icterus. No conjunctival pallor. Normocephalic, atraumatic. No pharyngeal eryth min. No thyromegaly. CARDIOVASCULAR: S1 and S2 muffled PULMONARY: diminished breath sounds bilaterally with no wheezing or rhonchi noted. ABDOMEN: soft. Nontender on exam. obese. non-distended, normoactive bowel sounds. No palpable organomegaly. MUSCULOSKELETAL: No joint swelling or deformity. EXTREMITIES: No cyanosis, clubbing, or pedal edema. Sternal surgical dressing is dry and intact NEUROLOGICAL: Gross neurological examination did not reveal any focal deficits. Diffuse weakness SKIN: No rashes. Assessment: Coronary artery disease status post CABG postop day #2 Leukocytosis, reactive to surgery, cont to monitor closely History of hypertension, was hypotensive yesterday, today blood pressures are in the 130's lopressor increased Hyperlipidemia History of paroxysmal atrial fibrillation, currently on subcutaneous heparin COPD, not in acute exacerbation Elevated random glucose, continue sliding scale and Accu checks before meals and at bedtime for tight glycemic control, most recent A1c is 6.0 with no history of diabetes, may need to add meal time insulin if blood glucose increases. Recent COVID-19 infection in February 2021 History of EtOH abuse, reports the last drink in September Continued ongoing nicotine dependence, most recently quit 2 weeks ago Anxiety, depression GI prophylaxis DVT prophylaxis, subcu heparin Full code Plan: Recommend to continue with current medications and management per cardiothoracic services as primary. Patient continues to be closely monitored in the ICU status post CABG postop day #2. Patient is continued on oxygen via nasal june dustin and recommend wean as tolerated. Encouraged incentive spirometer at least 10 times every hour while awake. Encouraged increased activity as tolerated and physical therapy/cardiac rehab has been consulted. Patient does have a past medical history of multiple hospitalizations secondary to acute alcohol withdrawal and intoxication although reports his last drink was 6 months ago in September 2020. Patient also most recently quit smoking cigarettes approximately 2 weeks ago although reports to continued vaping. Encouraged cessation. Will continue to follow with CT surgery during hospitalization. Thank you for this consultation. Objective - Vital Signs Vital signs: Vital Signs Temp 98.2 F 04/16/21 08:00 Pulse 93 04/16/21 08:00 Resp 8 L 04/16/21 08:00 BP 131/74 04/16/21 07:00 Pulse Ox 92 L 04/16/21 08:00 Intake & Output 04/15/21 04/16/21 04/16/21 18:59 06:59 18:59 Intake Total 1730.511 660.510 282 Output Total 710 795 45 Balance 1020.511 -134.490 237 Weight 99.4 kg 102.3 kg Intake: IV 854 152 42 Albumin Human 5% 250 ml 250 In Empty Bag 1 bag @ 250 mls/hr IVPB Q1HR PRN Rx#: [id number] CO/CI 0 Lactated Ringers 1,000 ml 520 80 30 @ 50 mls/hr IV .Q20H [facility] Rx#:[id number] Pressure Bag 84 72 12 Intake, IV Titration 76.511 8.510 Amount Dexmedetomidine/0.9% NaCl 67.867 (Pmx) 400 mcg In Empty Bag 1 bag @ Titrate IV . Q0M [facility] Rx#:[id number] Insulin Regular 100 unit 8.644 8.510 In Sodium Chloride 0.9% 100 ml @ Per Protocol IV .Q0M [facility] Rx#:[id number] Oral 800 500 240 Output: Chest Tube Drainage 220 Chest Tube Bilateral 140 Mediastinal Chest Tube Left Lateral 80 Chest Drainage 0 Left Wrist 0 Urine 490 795 45 Other: Voiding Method Indwelling Catheter Indwelling Catheter Indwelling Catheter ABP, PAP, CO, CI - Last Documented Arterial Blood Pressure 151/55 Pulmonary Artery Pressure 38/19 Cardiac Output 5.6 Cardiac Index 2.7 - Labs CBC & Chem 7: 04/16/21 04:25 04/16/21 04:25 Labs: Abnormal Lab Results - Last 24 Hours (Table) 04/15/21 04/15/21 04/15/21 Range/Units 09:58 11:51 14:15 WBC (3.8-10.6) k/uL RBC (4.30-5.90) m/uL Hgb (13.0-17.5) gm/dL Hct (39.0-53.0) % Neutrophils # (1.3-7.7) k/uL Sodium (137-145) mmol/L Carbon Dioxide (22-30) mmol/L Glucose (74-99) mg/dL POC Glucose (mg/dL) 139 H 122 H 68 L (75-99) mg/dL AST (17-59) U/L Alkaline Phosphatase (38-126) U/L Total Protein (6.3-8.2) g/dL 04/15/21 04/15/21 04/15/21 Range/Units 16:08 17:44 20:04 WBC (3.8-10.6) k/uL RBC (4.30-5.90) m/uL Hgb (13.0-17.5) gm/dL Hct (39.0-53.0) % Neutrophils # (1.3-7.7) k/uL Sodium (137-145) mmol/L Carbon Dioxide (22-30) mmol/L Glucose (74-99) mg/dL POC Glucose (mg/dL) 126 H 137 H 141 H (75-99) mg/dL AST (17-59) U/L Alkaline Phosphatase (38-126) U/L Total Protein (6.3-8.2) g/dL 04/15/21 04/16/21 04/16/21 Range/Units 21:55 00:12 02:12 WBC (3.8-10.6) k/uL RBC (4.30-5.90) m/uL Hgb (13.0-17.5) gm/dL Hct (39.0-53.0) % Neutrophils # (1.3-7.7) k/uL Sodium (137-145) mmol/L Carbon Dioxide (22-30) mmol/L Glucose (74-99) mg/dL POC Glucose (mg/dL) 140 H 123 H 133 H (75-99) mg/dL AST (17-59) U/L Alkaline Phosphatase (38-126) U/L Total Protein (6.3-8.2) g/dL 04/16/21 04/16/21 04/16/21 Range/Units 04:20 04:25 04:25 WBC 12.1 H (3.8-10.6) k/uL RBC 2.82 L (4.30-5.90) m/uL Hgb 8.7 L (13.0-17.5) gm/dL Hct 25.1 L (39.0-53.0) % Neutrophils # 9.8 H (1.3-7.7) k/uL Sodium 133 L (137-145) mmol/L Carbon Dioxide 20 L (22-30) mmol/L Glucose 122 H (74-99) mg/dL POC Glucose (mg/dL) 133 H (75-99) mg/dL AST 68 H (17-59) U/L Alkaline Phosphatase 26 L (38-126) U/L Total Protein 6.0 L (6.3-8.2) g/dL 04/16/21 Range/Units 06:35 WBC (3.8-10.6) k/uL RBC (4.30-5.90) m/uL Hgb (13.0-17.5) gm/dL Hct (39.0-53.0) % Neutrophils # (1.3-7.7) k/uL Sodium (137-145) mmol/L Carbon Dioxide (22-30) mmol/L Glucose (74-99) mg/dL POC Glucose (mg/dL) 132 H (75-99) mg/dL AST (17-59) U/L Alkaline Phosphatase (38-126) U/L Total Protein (6.3-8.2) g/dL
[2021-04-16 16:28] LABS: Glucose,Whole Blood 102 mg/dL (75-99)
[2021-04-16 20:17] LABS: Glucose,Whole Blood 68 mg/dL (75-99)
[2021-04-16 20:40] LABS: Glucose,Whole Blood 105 mg/dL (75-99)
[2021-04-16] MEDS: SENNOSIDES-DOCUSATE SODIUM 1 EACH TAB PO SCH (21:27)
[2021-04-17] MEDS: HEPARIN SODIUM,PORCINE/PF 5,000 UNIT/0.5 ML SYRINGE SQ SCH ×3 (00:42→17:37)
[2021-04-17] MEDS: oxyCODONE-APAP 10-325MG 1 EACH TAB PO PRN ×4 (00:42→19:01)
[2021-04-17 07:15] LABS: Glucose,Whole Blood 121 mg/dL (75-99)
[2021-04-17] MEDS: INSULIN ASPART (NovoLOG) 100 UNIT/ML VIAL SQ SCH ×4 (07:23→20:45)
--- NOTE | 2021-04-17 07:41 | XR ---
EXAMINATION TYPE: XR chest 2V DATE OF EXAM: 04/17/2021 COMPARISON: 04/16/2021 HISTORY: Shortness of breath TECHNIQUE: Frontal and lateral views of the chest are obtained. FINDINGS: Scattered senescent parenchymal changes noted. Hyperinflation compatible with COPD. Persistent left lower lobe atelectasis and/or infiltrate with small effusion. Heart size is stable. Mediastinal structures are stable and grossly unremarkable. No evidence for hilar prominence. Degenerative changes dorsal spine. IMPRESSION: 1. Persistent left lower lobe atelectasis and/or infiltrate with small effusion.
[2021-04-17] MEDS: FOLIC ACID-VIT B COMPLEX-VIT C 1 CAP PO SCH (07:56)
[2021-04-17] MEDS: CLOPIDOGREL 75 MG TAB PO SCH (07:57)
[2021-04-17] MEDS: PANTOPRAZOLE 40 MG TABLET PO SCH (07:57)
[2021-04-17] MEDS: ASPIRIN 325 MG TAB PO SCH (07:57)
[2021-04-17] MEDS: ATORVASTATIN 40 MG TAB PO SCH (07:57)
[2021-04-17] MEDS: MULTIVITAMINS, THERA 1 EACH TAB PO SCH (07:57)
[2021-04-17] MEDS: AMIODARONE 200 MG TAB PO SCH ×2 (07:57→20:45)
[2021-04-17] MEDS: METOPROLOL TARTRATE 25 MG TAB PO SCH ×2 (07:57→20:45)
[2021-04-17 08:10] LABS: Basophils % (A) 0 %; Eosinophils # (A) 0.1 k/uL (0-0.7); Eosinophils % (A) 1 %; HCT 27.2 % (39.0-53.0); HGB 9.5 gm/dL (13.0-17.5); Lymphocytes # (A) 1.4 k/uL (1.0-4.8); Lymphocytes % (A) 12 %; MCH 30.9 pg (25.0-35.0); MCHC 34.8 g/dL (31.0-37.0); MCV 88.8 fL (80.0-100.0); Mean Platelet Volume 8.1; Monocytes # (A) 0.6 k/uL (0-1.0); Monocytes % (A) 5 %; Neutrophils # (A) 9.4 k/uL (1.3-7.7); Neutrophils % (A) 81 %; Platelet Count 215 k/uL (150-450); RBC 3.07 m/uL (4.30-5.90); RDW 12.7 % (11.5-15.5); WBC 11.6 k/uL (3.8-10.6)
[2021-04-17 08:13] LABS: ALT 18 U/L (4-49); AST 57 U/L (17-59); African American GFR (CKD) >90 (>60 ml/min/1.73 sqM); Albumin 4.3 g/dL (3.5-5.0); Alkaline Phosphatase 39 U/L (38-126); Anion Gap 13 mmol/L; Blood Urea Nitrogen 16 mg/dL (9-20); Calcium 9.1 mg/dL (8.4-10.2); Carbon Dioxide 21 mmol/L (22-30); Chloride 104 mmol/L (98-107); Glucose 110 mg/dL (74-99); Non-African American GFR(CKD) >90 (>60 ml/min/1.73 sqM); Potassium 3.9 mmol/L (3.5-5.1); Sodium 138 mmol/L (137-145); Total Bilirubin 0.9 mg/dL (0.2-1.3); Total Protein 6.7 g/dL (6.3-8.2)
[2021-04-17] MEDS: IPRATROPIUM-ALBUTEROL 3 ML NEB INHALATION SCH ×4 (08:15→19:13)
[2021-04-17] MEDS ORDERED: FUROSEMIDE 10 MG/ML 2 ML VIAL IV ONE (08:18)
--- NOTE | 2021-04-17 10:02 | P.PN ---
Subjective Progress Note Date: 04/17/21 Principal diagnosis: Coronary artery disease, unstable angina. Past medical history significant for hypertension, hyperlipidemia, paroxysmal atrial fibrillation, EtOH abuse with h istory of withdrawal, last drink in September 2020, chronic tobacco dependence, COPD, anxiety/depression, remote history of pneumonia, medical noncompliance, and family history of coronary artery disease. Vaccinated but not boosted against Covid-19. POD #3 off-pump CABG 4 with sequential left internal mammary artery to the diagonal coronary artery and the left anterior descending coronary artery, left radial artery T graft off the AZUL to the obtuse marginal coronary artery, saphenous vein graft to the posterior descending coronary artery with endoscopic vein harvest, endoscopic radial artery harvest, bilateral pulmonary vein ablation, occlusion of the left atrial appendage was a 35 mm AtriCure clip, epi- aortic ultrasound, intraoperative transesophageal echocardiogram performed by anesthesia. Acute blood loss anemia and thrombocytopenia, expected given hemodilution. Hypotension, unexpected, resolved. The patient was seen in follow-up today 04/17/2021 at his bedside in the intensive care unit. Currently sitting up to the bedside chair, is awake, alert, oriented 3 and is in no acute apparent distress. Denies any complaints of shortness of breath, although is complaining of some chronic type pain. He reports he feels much improved today and has been up ambulating in the intensive care unit with standby assistance from nursing and therapy staff. Oxygen saturations are 93% on room air and he is achieving 1500 mL on his incentive spirometry with encouragement. Bedside telemetry showing normal sinus rhythm heart rate 85 BPM. His Humphries catheter was removed yesterday without incident and he has been urinating without difficulty with 400 mL of urine output in the last 8 hours. He remains afebrile the last 24 hours. He remains hemodynamically stable and is currently on no inotropic or pressor support. No new concerns. Objective - Vital Signs Vital signs: Vital Signs Temp 98.0 F 04/17/21 04:00 Pulse 87 04/17/21 09:00 Resp 23 04/17/21 09:00 BP 132/74 04/17/21 09:00 Pulse Ox 91 L 04/17/21 09:00 Intake & Output 04/16/21 04/17/21 04/17/21 18:59 06:59 18:59 Intake Total 798 960 360 Output Total 520 400 100 Balance 278 560 260 Weight 101.2 kg Intake: IV 78 Lactated Ringers 1,000 ml 60 @ 50 mls/hr IV .Q20H [facility] Rx#:[id number] Pressure Bag 18 Oral 720 960 360 Output: Urine 520 400 100 Other: Voiding Method Indwelling Catheter Urinal # Voids 1 ABP, PAP, CO, CI - Last Documented Arterial Blood Pressure 138/54 Pulmonary Artery Pressure 38/19 Cardiac Output 5.6 Cardiac Index 2.7 - Exam CONSTITUTIONAL: Sitting up to the bedside chair in the intensive care unit, appears comfortable, cooperative, no apparent acute distress. HEENT: Neck is supple, no JVD, no lymphadenopathy. RESPIRATORY: Lungs sounds essentially clear throughout, diminished to his bilateral bases. Respirations are symmetrical and nonlabored. Currently on room air with oxygen saturations 93%. Able to achieve 1500 mL on his incentive spirometry. Strong cough. CARDIOVASCULAR: Regular rhythm and rate. S1 and S2 present, negative for S3, ga llop or murmur. Sternum is stable. Palpable peripheral pulses bilaterally. No calf pain or tenderness noted. Heart hugger in place with patient demonstrating appropriate use. Knee-high YULIYA hose and sequential compression devices in place to his bilateral lower extremities. GASTROINTESTINAL: Abdomen soft, nontender, nondistended. Active bowel sounds present 4 quadrants. Tolerating diet. Passing flatus. No guarding or rigidity. GENITOURINARY: Continues to void, 400 mL of urine output in the last 8 hours. INTEGUMENTARY: Skin is warm and dry with no evidence of clubbing or cyanosis. Midline sternal incision clean dry and well approximated, covered with dry intact dressing. Right lower extremity EVH sites well approximated without redness or drainage. Left arm radial artery harvest sites clean, dry and approximated. No drainage or redness is present. NEUROLOGIC: Cranial nerves II through XII intact. No focal deficits. MUSKULOSKELETAL: Able to move all extremities, strength equal bilaterally. PSYCHIATRIC: Alert and oriented to person place and time, appropriate affect, intact judgment and insight. - Allied health notes Allied health notes reviewed: nursing - Labs CBC & Chem 7: 04/17/21 07:10 04/17/21 07:10 Labs: Abnormal Lab Results - Last 24 Hours (Table) 04/16/21 04/16/21 04/16/21 Range/Units 12:00 16:27 20:16 WBC (3.8-10.6) k/uL RBC (4.30-5.90) m/uL Hgb (13.0-17.5) gm/dL Hct (39.0-53.0) % Neutrophils # (1.3-7.7) k/uL Carbon Dioxide (22-30) mmol/L Glucose (74-99) mg/dL POC Glucose (mg/dL) 101 H 102 H 68 L (75-99) mg/dL 04/16/21 04/17/21 04/17/21 Range/Units 20:38 07:10 07:10 WBC 11.6 H (3.8-10.6) k/uL RBC 3.07 L (4.30-5.90) m/uL Hgb 9.5 L (13.0-17.5) gm/dL Hct 27.2 L (39.0-53.0) % Neutrophils # 9.4 H (1.3-7.7) k/uL Carbon Dioxide 21 L (22-30) mmol/L Glucose 110 H (74-99) mg/dL POC Glucose (mg/dL) 105 H (75-99) mg/dL 04/17/21 Range/Units 07:14 WBC (3.8-10.6) k/uL RBC (4.30-5.90) m/uL Hgb (13.0-17.5) gm/dL Hct (39.0-53.0) % Neutrophils # (1.3-7.7) k/uL Carbon Dioxide (22-30) mmol/L Glucose (74-99) mg/dL POC Glucose (mg/dL) 121 H (75-99) mg/dL - Imaging and Cardiology Chest x-ray: report reviewed, image reviewed Assessment and Plan Assessment: 1. Coronary artery disease, unstable angina, status post four-vessel off-pump CABG 2. History of hypertension, currently hypotensive 3. Hyperlipidemia, treated, cholesterol 152, LDL 83 4. Paroxysmal atrial fibrillation, status post left atrial appendage ligation as well as bilateral pulmonary vein ablation 5. EtOH abuse with history of withdrawal, last drink in September 2020 6. Chronic tobacco dependence, quit smoking cigarettes, still vapes 7. COPD, preoperative FEV1 97% of predicted 8. Anxiety/depression, follows with [facility] 9. Remote history of pneumonia 10. History of medical noncompliance 11. Family history of coronary artery disease 12. Vaccinated but not boosted against Covid-19. Positive Covid-19 in February 2021 13. Acute blood loss anemia and thrombocytopenia, expected Plan: 1. Continue aspirin, statin, Plavix, and beta lurdes. Will increase metoprolol tartrate as tolerated. Hold parameters on beta blockers. 2. Continue amiodarone 200 mg by mouth twice a day for A. fib prophylaxis. 3. Encourage incentive spirometry 10 times every hour while awake. Bronchodilators per pulmonology. 4. Increase activity, ambulate as tolerated. PT/OT/cardiac rehab following. 5. Will monitor daily labs and chest x-rays. Electrolyte replacement per protocol. 6. GI/DVT prophylaxis. 7. Pain control with current medication regimen. Fentanyl discontinued. 8. Lasix 20 mg IV 1 now. 9. Norvasc 5 mg by mouth daily at noon initiated for radial artery spasm prop hylaxis. Hold parameters placed on Norvasc, please do not discontinue without checking with cardiothoracic surgery service first. 10. Continue to record strict and accurate I's and O's. Daily weights. 11. Insulin management per internal medicine service. Patient is not diabetic, preoperative hemoglobin A1c 6%, however he does need tight blood sugar control to promote sternal union and prevent infection. 12. Smoking cessation counseling reinforced with patient, continue to encourage complete smoking cessation. 13. Transfer orders to the third floor cardiac stepdown unit placed. 14. More recommendations to follow based on patient's clinical course. Time with Patient: Greater than 30
[2021-04-17 11:49] LABS: Glucose,Whole Blood 145 mg/dL (75-99)
[2021-04-17] MEDS: amLODIPine 5 MG TAB PO SCH (12:09)
--- NOTE | 2021-04-17 12:20 | P.PN ---
Subjective Progress Note Date: 04/17/21 The patient was interviewed and examined sitting in his recliner chair. His pain is better controlled today. He does have chest discomfort, likely secondary to sternal incision. No heart racing or fluttering. Occasional dizziness when he stands up abruptly. No shortness of breath. GENERAL: Well-appearing, well-nourished. NECK: Supple without JVD or thyromegaly. LUNGS: Breath sounds clear to auscultation bilaterally. Respiration equal and unlabored. No wheezes, rales or rhonchi. HEART: Regular rate and rhythm without murmurs, rubs or gallops. S1 and S2 heard. EXTREMITIES: Normal range of motion, no edema. No clubbing or cyanosis. Peripheral pulses intact and strong. YULIYA hose in place. VITALS: Blood pressure 127/76, SpO2 91% on RA. pulse rate 84, temp 98.0F TELEMETRY: Sinus rhythm LABS: WBC 11.6, Hgb 0.6 hematocrit 27.26, platelet 250, sodium 138, potassium 3.9, BUN 16, creatinine 0.75, AST, ALT 18 IMPRESSION: Coronary artery disease status post CABG 4 Left atrial appendage ligation and bilateral pulmonary vein ablation Hypertension Chronic tobacco use PLAN: No changes to medication regimen Continue supportive care Further recommendations will be based on clinical course I am dictating on behalf of Dr Epifanio Lee's history/physical and assessment/plan. Objective - Vital Signs Vital signs: Vital Signs Temp 98.0 F 04/17/21 04:00 Pulse 87 04/17/21 09:00 Resp 23 04/17/21 09:00 BP 132/74 04/17/21 09:00 Pulse Ox 91 L 04/17/21 09:00 Intake & Output 04/16/21 04/17/21 04/17/21 18:59 06:59 18:59 Intake Total 798 960 360 Output Total 520 400 525 Balance 278 560 -165 Weight 101.2 kg Intake: IV 78 Lactated Ringers 1,000 ml 60 @ 50 mls/hr IV .Q20H [facility] Rx#:[id number] Pressure Bag 18 Oral 720 960 360 Output: Urine 520 400 525 Other: Voiding Method Indwelling Catheter Urinal # Voids 1 ABP, PAP, CO, CI - Last Documented Arterial Blood Pressure 138/54 Pulmonary Artery Pressure 38/19 Cardiac Output 5.6 Cardiac Index 2.7 - Labs CBC & Chem 7: 04/17/21 07:10 04/17/21 07:10 Labs: Abnormal Lab Results - Last 24 Hours (Table) 04/16/21 04/16/21 04/16/21 Range/Units 12:00 16:27 20:16 WBC (3.8-10.6) k/uL RBC (4.30-5.90) m/uL Hgb (13.0-17.5) gm/dL Hct (39.0-53.0) % Neutrophils # (1.3-7.7) k/uL Carbon Dioxide (22-30) mmol/L Glucose (74-99) mg/dL POC Glucose (mg/dL) 101 H 102 H 68 L (75-99) mg/dL 04/16/21 04/17/21 04/17/21 Range/Units 20:38 07:10 07:10 WBC 11.6 H (3.8-10.6) k/uL RBC 3.07 L (4.30-5.90) m/uL Hgb 9.5 L (13.0-17.5) gm/dL Hct 27.2 L (39.0-53.0) % Neutrophils # 9.4 H (1.3-7.7) k/uL Carbon Dioxide 21 L (22-30) mmol/L Glucose 110 H (74-99) mg/dL POC Glucose (mg/dL) 105 H (75-99) mg/dL 04/17/21 Range/Units 07:14 WBC (3.8-10.6) k/uL RBC (4.30-5.90) m/uL Hgb (13.0-17.5) gm/dL Hct (39.0-53.0) % Neutrophils # (1.3-7.7) k/uL Carbon Dioxide (22-30) mmol/L Glucose (74-99) mg/dL POC Glucose (mg/dL) 121 H (75-99) mg/dL
--- NOTE | 2021-04-17 12:54 | P.PN ---
Subjective Progress Note Date: 04/17/21 Ojtulfut-[id number]-ohy male patient with symptomatic coronary artery disease and underwent off-pump coronary artery bypass surgery 4 with AZUL to diagonal and LAD and left radial to graft off AZUL to obtuse marginal and saphenous vein graft to PDA. The patient also underwent a left atrial clipping. He does have history of CAD approximately atrial fibrillation. Is a smoker and has COPD. I saw the patient may definitely rub. In the ICU. The patient was sedated on propofol which was running at 30 mg/kg per minute. The patient is a Cardizem drip for protocol at 5 mg an hour for radial artery harvesting and the patient will be started on amiodarone drip for A. fib prophylaxis. The patient did have one episode of atrial fibrillation intraoperatively currently is in sinus rhythm. He is on a mechanical ventilator assist control mode with tidal volume of 500 and rate of 14 with an FiO2 of 60% with a PEEP of 10. The blood gases on 100% FiO2 showed a pH of 7.27 with a pCO2 of 48 and pO2 of 284. Chest x-ray shows adequate expansion of both lungs. No evidence of any pneumothorax. The patient has 2 mediastinal chest tubes drained approximately 50 mL since or and 1 pleural chest tube on the left drained 20 mL since or. The patient is on no pressors. Cardiac output is areas 4. with an index of 2.3 and the pulmonary artery pressures are 31/16. The patient is on this is a total of 2 L of albumin postop. Adequate urine output for now. The patient is seen today 04/15/2021 in follow-up in the intensive care unit. This is postoperative day #1 of a off-pump coronary artery bypass surgery 4. He was successfully extubated within the 6 hour window yesterday. Currently sitting up in a chair. Awake and alert in no acute distress. Still having some issues with pain management. He is still requiring 12 L high flow nasal cannula to maintain O2 saturations in the 90s. He is on insulin at 1.5 units per hour. Lactated Ringer's at 50 mL per hour. He was having some issues with hypotension and has received albumin 4. Cardiac output 5.6. Cardiac index 2.7. PA pressures 38/19. CVP 16. Chest x-ray reveals persistent but improving basilar strandy densities most likely atelectasis. Pulling approximately 1000 on the incentive spirometer. Mediastinal chest tube had 470 mls serosanguineous fluid out to surgery. Left pleural chest tube 270 mL polyp surgery. Both wall suctio n. No air leaks present. Right IJ Adak-Kannan catheter in place. Right radial arterial line in place. White count 7.4. Hemoglobin 8.3. Platelet count 118,000. Sodium 135. Potassium 4.8. Chloride 106. Bicarb 19. BUN 24. Creatinine 1.2. He remains on bronchodilators. Heparin for DVT prophylaxis. . 04/16/2021, the patient is being seen for a follow-up. The patient is postop day #2. The patient is post coronary bypass surgery 4. The patient is on 8 L of oxygen by nasal cannula and this was weaned down to 5 L. His chest x-ray showing adequate expansion of the lungs and there is no evidence of any pneumothorax. The patient's chest tubes have been removed. Adak-Kannan catheter is also been removed. The patient is using incentive spirometer, pulling approximately 1500. Otherwise, no other significant complaints. Moving all 4 extremity is without any limitation. He has some surgical pain along the surgical wound site which is in the order of 5 out of 10 in severity. CVP t esau's at 9. He did ambulate yesterday. His hemoglobin is at 8.7 with a platelet count of 154. Sodium is at 133, BUN is at 20 with a creatinine of 0.8. Glucose is 122. 04/17/2021, the patient is doing well. No specific complaints. He is on room air oxygen. He is postop day #3. He underwent four-vessel bypass surgery. Chest x-ray shows no evidence of any pneumothorax. Some atelectatic changes are seen bilaterally. Nevertheless, patient is improved. The patient's chest tubes are all removed. Cardiac rhythm is sinus. Using incentive spirometer. Remains on a combination of aspirin and Plavix and the patient is also taking metoprolol 25 mg twice a day and amiodarone for atrial fibrillation prophylaxis. No other significant events otherwise for now. The patient's white cell count is at 11.6 with a hemoglobin of 9.5. Electrolytes are all within normal limits. Objective - Vital Signs Vital signs: Vital Signs Temp 98.0 F 04/17/21 12:00 Pulse 84 04/17/21 12:00 Resp 30 H 04/17/21 12:00 BP 127/76 04/17/21 12:00 Pulse Ox 91 L 04/17/21 12:00 Intake & Output 04/16/21 04/17/21 04/17/21 18:59 06:59 18:59 Intake Total 798 960 720 Output Total 520 400 825 Balance 278 560 -105 Weight 101.2 kg Intake: IV 78 Lactated Ringers 1,000 ml 60 @ 50 mls/hr IV .Q20H [facility] Rx#:[id number] Pressure Bag 18 Oral 720 960 720 Output: Urine 520 400 825 Other: Voiding Method Indwelling Catheter Urinal # Voids 1 ABP, PAP, CO, CI - Last Documented Arterial Blood Pressure 138/54 Pulmonary Artery Pressure 38/19 Cardiac Output 5.6 Cardiac Index 2.7 - Exam CONSTITUTIONAL: Sitting up to the bedside chair in the intensive care unit, appears comfortable, cooperative, no apparent acute distress., Currently on room air oxygen HEENT: Neck is supple, no JVD, no lymphadenopathy. . RESPIRATORY: Lungs sounds essentially clear throughout, diminished to his bilat eral bases. Respirations are symmetrical and nonlabored. Currently on 10 L high flow nasal cannula with oxygen saturations 95%. Able to achieve 1000 mL on his incentive spirometry. Strong cough. CARDIOVASCULAR: Regular rhythm and rate. S1 and S2 present, negative for S3, gallop or murmur. Sternum is stable. Palpable peripheral pulses bilaterally. No calf pain or tenderness noted. Heart hugger in place with patient demonstrating appropriate use. Knee-high YULIYA hose and sequential compression devices in place to his bilateral lower extremities. GASTROINTESTINAL: Abdomen soft, nontender, nondistended. Active bowel sounds present 4 quadrants. Tolerating diet. Passing flatus. No guarding or rigidity. GENITOURINARY: Humphries present draining clear, yellow urine. INTEGUMENTARY: Skin is warm and dry with no evidence of clubbing or cyanosis. Midline sternal incision clean dry and well approximated, covered with dry intact dressing. Right lower extremity EVH sites well approximated without redness or drainage. Left arm radial artery harvest sites clean, dry and approximated. No drainage or redness is present. NEUROLOGIC: Cranial nerves II through XII intact. No focal deficits. MUSKULOSKELETAL: Able to move all extremities, strength equal bilaterally, generalized weakness. PSYCHIATRIC: Alert and oriented to person place and time, appropriate affect, intact judgment and insight. - Labs CBC & Chem 7: 04/17/21 07:10 04/17/21 07:10 Labs: Abnormal Lab Results - Last 24 Hours (Table) 04/16/21 04/16/21 04/16/21 Range/Units 16:27 20:16 20:38 WBC (3.8-10.6) k/uL RBC (4.30-5.90) m/uL Hgb (13.0-17.5) gm/dL Hct (39.0-53.0) % Neutrophils # (1.3-7.7) k/uL Carbon Dioxide (22-30) mmol/L Glucose (74-99) mg/dL POC Glucose (mg/dL) 102 H 68 L 105 H (75-99) mg/dL 04/17/21 04/17/21 04/17/21 Range/Units 07:10 07:10 07:14 WBC 11.6 H (3.8-10.6) k/uL RBC 3.07 L (4.30-5.90) m/uL Hgb 9.5 L (13.0-17.5) gm/dL Hct 27.2 L (39.0-53.0) % Neutrophils # 9.4 H (1.3-7.7) k/uL Carbon Dioxide 21 L (22-30) mmol/L Glucose 110 H (74-99) mg/dL POC Glucose (mg/dL) 121 H (75-99) mg/dL 04/17/21 Range/Units 11:47 WBC (3.8-10.6) k/uL RBC (4.30-5.90) m/uL Hgb (13.0-17.5) gm/dL Hct (39.0-53.0) % Neutrophils # (1.3-7.7) k/uL Carbon Dioxide (22-30) mmol/L Glucose (74-99) mg/dL POC Glucose (mg/dL) 145 H (75-99) mg/dL Assessment and Plan Plan: 1 Symptomatic coronary artery disease, post Off-pump CABG 4 with sequential AZUL to diagonal and LAD, left radial artery graft off AZUL to obtuse marginal, saphenous vein graft to PDA with endovascular vein harvest, Endo radial harvest, bilateral pulmonary vein ablation, occlusion of the left atrial appendage with a 35 mm AtriCure clip. The patient is currently postop day #3. The patient is extubated patient is currently on room air oxygen. All of the chest is available. Chest x-ray showing atelectatic changes. No other active issues for now. 2 Post thoracotomy, extubated currently on room air oxygen. Using [place]. 3 Hypertension 4 Hyperlipidemia 5 COPD 6 History of paroxysmal atrial fibrillation current rhythm is sinus and the patient is on amiodarone prophylaxis 7 Chronic cervical and neck pain 8 History of COVID 19 infection February 2021, recovered Plan Continue aspirin and Plavix Metoprolol 25 mg twice a day Amiodarone 200 mg twice a day FiO2 has been weaned down and the patient is currently on room air oxygen Continue using incentive spirometer and ambulate the patient Sliding scale insulin coverage Pain control We'll transfer this patient to telemetry cardiac unit
--- NOTE | 2021-04-17 14:24 | P.PN ---
Subjective Progress Note Date: 04/17/21 This is a pleasant 55-year-old male who was recently admitted under cardio- thoracic surgery services with a past medical history of coronary artery disease, unstable angina, hypertension, hyperlipidemia, paroxysmal atrial fibrillation, chronic nicotine dependence, COPD, anxiety depression, recent EtOH abuse with his reported last drink approximately 6 months ago. Patient is postop day #1 status post CABG and is being closely monitored currently in the ICU. We are consulted for medical management. Patient was recently extubated yesterday afternoon and is currently sitting up in the recliner. Patient reports to generalized pain throughout mostly feelings of pain in the substernal area. Heart hugger noted. Patient with incentive spirometer at the bedside and encourage the patient to continue using at least 10 times every hour while awake. Patient is being started on diet of clear liquids and is currently maintained on insulin drip per ICU protocol. Once advanced diet as tolerated patient may be transitioned to Accu-Cheks before meals and at bedtime along with sliding scale as needed for tight glycemic control. Patient does not have history of diabetes mellitus per the patient. Chest x-ray today shows persistent but improving basilar strandy densities felt to reflect atelectasis with pleural effusion unchanged. Labs this morning reveal a WBC of 7.4, hemoglobin is 8.3, platelets are 118, sodium is 135, potassium 4.8, BUN 24, creatinine 1.32, calcium 8.6, magnesium 2.1. 04/16/2021 Patient today sitting up in the chair. He is postop day #2 4 vessel coronary artery bypass grafting. Complains of feeling generalized pain and aches all over. Also complains of midsternal pain and discomfort, post surgical, per RN pain medications are being adjusted by primary team. Having some shortness of breath worse with ambulation. He has walked in the hallway. No BM but is passing gas. He is tolerating a regular diet and was transitioned off of insulin drip this morning. He continues now on NovoLog sliding scale and blood sugars are in the 130s. Continue to monitor closely patient may require mealtime insulin if his glucose increases. Labs today show a white count 12.1, hemoglobin 8.7, sodium 133, potassium 4.3, CO2 20, AST 68, alk phos 26. Patient has remained afebrile, heart rate 89, respirations 32, blood pressure 132/80, 94% on 3L NC. Chest xray today shows mild basilar linear atelectasis. Humphries catheter and chest tubes are out. Patient encouraged to ambulate and continue to use incentive spirometer. 04/17/2021 Patient evaluated today sitting up in the chair, walked in the hallway today. He is post operative day #3 4 vessel CABG. Heart hugger in place and patient using appropriately. Patient complains of post surgical chest pain rating a 5/10, he is receiving percocet as needed for this and states it is helping. Reports some shortness of breath when ambulating. He is using his incentive spirometer and ambulating to the rest room as well. Passing gas, no BM. On senna daily with PRN dulcolax as needed, would recommend giving today. Also complaining of anxiety and requesting medication, discussed with nursing staff who will ok medication with primary. Blood pressure elevated today 150/90s. Patient was started on norvasc by primary. Patient also received a 1 time dose of IV lasix today. Tolearating some diet, blood sugars have ranged from 60's to 140's today. Will continue with only sliding scale for now until sugars have stabilized to avoid hypoglycemia. Chest xray today: Persistent left lower lobe atelectasis and or infiltrate with small effusions. Labs today: WBC 11.6, hgb 9.5, platelets 215, sodium 138, BUN 16, creatinine 0.75, AST 57, alk phos 39. Review of Systems Constitutional: Denies fatigue, denies any fever, patient reports feeling anxious Cardio vascular: denied any chest pain, palpitations. Reports post surgical chest discomfort 5/10 Gastrointestinal: denied any nausea, vomiting, diarrhea, no BM, passing gas Pulmonary: Reports shortness of breath with ambulation, no cough Neurologic denied any new focal deficits All inpatient medications were reviewed and appropriate changes in these medications as dictated in the interval history and assessment and plan. PHYSICAL EXAMINATION: GENERAL: The patient is alert and oriented x4, Well developed, well nourished. Obese, slightly anxious HEENT: Pupils are round and equally reacting to light. EOMI. does have scleral icterus. No conjunctival pallor. Normocephalic, atraumatic. No pharyngeal erythema. No thyromegaly. CARDIOVASCULAR: S1 and S2 muffled PULMONARY: diminished breath sounds bilaterally with no wheezing or rhonchi noted. ABDOMEN: soft. Nontender on exam. obese. non-distended, hypoactive bowel sounds. No palpable organomegaly. MUSCULOSKELETAL: No joint swelling or deformity. EXTREMITIES: No cyanosis, clubbing, mild peripheral edema. Sternal surgical dressing is dry and intact NEUROLOGICAL: Gross neurological examination did not reveal any focal deficits. Diffuse weakness SKIN: No rashes. Assessment: Coronary artery disease status post CABG postop day #3 Leukocytosis, reactive to surgery, cont to monitor closely, slightly improved from yesterday History of hypertension, was hypotensive post surgical now with hypertension, patient has had lopressor increased and was started on norvasc today for radial artery prophylaxis by primary. Hyperlipidemia History of paroxysmal atrial fibrillation, currently on subcutaneous heparin COPD, not in acute exacerbation Elevated random glucose, continue sliding scale and Accu checks before meals and at bedtime for tight glycemic control, most recent A1c is 6.0 with no history of diabetes. Recent COVID-19 infection in February 2021 History of EtOH abuse, reports the last drink in September Continued ongoing nicotine dependence, most recently quit 2 weeks ago Anxiety, depression GI prophylaxis DVT prophylaxis, subcu heparin Full code Plan: Recommend to continue with current medications and management per cardiothoracic services as primary. Patient continues to be closely monitored in the ICU status post CABG postop day #3. Patient is continued on oxygen via nasal cannula and recommend wean as tolerated. Encouraged incentive spirometer at least 10 times every hour while awake. Patient currently reaching 1500 however needs encouragement. Encouraged increased activity as tolerated and physical therapy/cardiac rehab has been consulted. Patient does have a past medical history of multiple hospitalizations secondary to acute alcohol withdrawal and intoxication although reports his last drink was 6 months ago in September 2020. Patient also most recently quit smoking cigarettes approximately 2 weeks ago although reports to continued vaping. Encouraged cessation. Patient with some constipation, no BM since before surgery, continue with senna, and recommend giving the as needed dulcolax today. Urinating without difficulty since catheter discontinuation. Will continue to follow with CT surgery during hospitalization. Thank you for this consultation. Objective - Vital Signs Vital signs: Vital Signs Temp 98.0 F 04/17/21 04:00 Pulse 80 04/17/21 10:00 Resp 20 04/17/21 10:00 BP 131/74 04/17/21 10:00 Pulse Ox 94 L 04/17/21 10:00 Intake & Output 04/16/21 04/17/21 04/17/21 18:59 06:59 18:59 Intake Total 798 960 360 Output Total 520 400 675 Balance 278 560 -315 Weight 101.2 kg Intake: IV 78 Lactated Ringers 1,000 ml 60 @ 50 mls/hr IV .Q20H [facility] Rx#:[id number] Pressure Bag 18 Oral 720 960 360 Output: Urine 520 400 675 Other: Voiding Method Indwelling Catheter Urinal # Voids 1 ABP, PAP, CO, CI - Last Documented Arterial Blood Pressure 138/54 Pulmonary Artery Pressure 38/19 Cardiac Output 5.6 Cardiac Index 2.7 - Labs CBC & Chem 7: 04/17/21 07:10 04/17/21 07:10 Labs: Abnormal Lab Results - Last 24 Hours (Table) 04/16/21 04/16/21 04/16/21 Range/Units 12:00 16:27 20:16 WBC (3.8-10.6) k/uL RBC (4.30-5.90) m/uL Hgb (13.0-17.5) gm/dL Hct (39.0-53.0) % Neutrophils # (1.3-7.7) k/uL Carbon Dioxide (22-30) mmol/L Glucose (74-99) mg/dL POC Glucose (mg/dL) 101 H 102 H 68 L (75-99) mg/dL 04/16/21 04/17/21 04/17/21 Range/Units 20:38 07:10 07:10 WBC 11.6 H (3.8-10.6) k/uL RBC 3.07 L (4.30-5.90) m/uL Hgb 9.5 L (13.0-17.5) gm/dL Hct 27.2 L (39.0-53.0) % Neutrophils # 9.4 H (1.3-7.7) k/uL Carbon Dioxide 21 L (22-30) mmol/L Glucose 110 H (74-99) mg/dL POC Glucose (mg/dL) 105 H (75-99) mg/dL 04/17/21 Range/Units 07:14 WBC (3.8-10.6) k/uL RBC (4.30-5.90) m/uL Hgb (13.0-17.5) gm/dL Hct (39.0-53.0) % Neutrophils # (1.3-7.7) k/uL Carbon Dioxide (22-30) mmol/L Glucose (74-99) mg/dL POC Glucose (mg/dL) 121 H (75-99) mg/dL Assessment and Plan Time with Patient: Less than 30
[2021-04-17 16:47] LABS: Glucose,Whole Blood 123 mg/dL (75-99)
[2021-04-17 19:58] LABS: Glucose,Whole Blood 105 mg/dL (75-99)
[2021-04-17] MEDS: MELATONIN 3 MG TABLET PO SCH (20:45)
[2021-04-17] MEDS: SENNOSIDES-DOCUSATE SODIUM 1 EACH TAB PO SCH (20:45)
[2021-04-18] MEDS: oxyCODONE-APAP 10-325MG 1 EACH TAB PO PRN ×4 (00:50→18:08)
[2021-04-18] MEDS: HEPARIN SODIUM,PORCINE/PF 5,000 UNIT/0.5 ML SYRINGE SQ SCH ×3 (00:51→18:05)
[2021-04-18 02:03] LABS: Glucose,Whole Blood 159 mg/dL (75-99)
[2021-04-18 05:27] LABS: Glucose,Whole Blood 130 mg/dL (75-99)
[2021-04-18] MEDS: INSULIN ASPART (NovoLOG) 100 UNIT/ML VIAL SQ SCH ×4 (05:43→20:34)
[2021-04-18] MEDS: PANTOPRAZOLE 40 MG TABLET PO SCH (06:28)
--- NOTE | 2021-04-18 07:24 | XR ---
EXAMINATION TYPE: XR chest 1V portable DATE OF EXAM: 04/18/2021 COMPARISON: Chest x-ray 04/17/2021 HISTORY: Postop coronary bypass graft TECHNIQUE: Single frontal view of the chest is obtained. FINDINGS: Patient is post median sternotomy. Patient shows left atrial appendage clip placement. No evident pneumothorax. There is some minimal patchy retrocardiac density. There are overlying leads. C ardiac mediastinal sweat likely stable accounting for differences in technique. IMPRESSION: Probable left lower lobe atelectasis, possible small associated effusion
--- NOTE | 2021-04-18 07:33 | P.PN ---
Subjective Progress Note Date: 04/18/21 Principal diagnosis: Coronary artery disease, unstable angina. Previous medical history of hypertension, hyperlipidemia, paroxysmal atrial fibrillation, EtOH abuse with history of withdrawal, last drink in September 2020, chronic tobacco dependence, COPD, anxiety/depression, remote history of pneumonia, medical noncompliance, and family history of coronary artery disease. Vaccinated but not boosted against Covid POD #4 off-pump CABG 4 with sequential left internal mammary artery to the diagonal and the left anterior descending coronary artery, left radial artery T graft off the AZUL to the obtuse marginal, saphenous vein graft to the posterior descending artery with endovascular vein harvest, Endo radial artery harvest, bilateral pulmonary vein ablation, occlusion of the left atrial appendage was a 35 mm AtriCure clip, epi-aortic ultrasound, intraoperative transesophageal echocardiogram performed by anesthesia Acute blood loss anemia and thrombocytopenia, expected given hemodilution Hypotension, unexpected The patient was seen and examined this morning sitting up in a recliner on the cardiac stepdown unit in no acute distress. He does complain of post surgical pain, denies shortness of breath. He ambulated in the hallway with therapy yesterday. Alert and oriented to person, place, time, situation. Remains in sinus rhythm, hemodynamically stable. Patient's only real complaint is his chronic pain combined with post surgical pain, requesting we contact his pain specialist to make sure he has pain medication at discharge. Patient also requesting to stay another day in the hospital because he is eating more than he would be at home as there is no one to cook meals for him at home. Continues to use incentive spirometer. No other new concerns. Objective - Vital Signs Vital signs: Vital Signs Temp 98.1 F 04/18/21 03:57 Pulse 75 04/18/21 03:57 Resp 18 04/18/21 03:57 BP 105/64 04/18/21 03:57 Pulse Ox 93 L 04/18/21 03:57 Intake & Output 04/17/21 04/18/21 04/18/21 18:59 06:59 18:59 Intake Total 720 690 Output Total 950 775 Balance -230 -85 Weight 100.6 kg Intake: Oral 720 690 Output: Urine 950 775 ABP, PAP, CO, CI - Last Documented Arterial Blood Pressure 138/54 Pulmonary Artery Pressure 38/19 Cardiac Output 5.6 Cardiac Index 2.7 - Exam CONSTITUTIONAL: Appears somewhat cooperative, no acute distress RESPIRATORY: Lungs sounds diminished bilaterally. Respirations even, nonlabored. Currently on room air with oxygen saturation 93%. Able to achieve 1250 mL on incentive spirometry. Strong cough. CARDIOVASCULAR: S1, S2 present. Regular rate and rhythm, sinus rhythm on telemetry. Sternum stable. Palpable peripheral pulses bilaterally. Trace bilateral lower extremity edema present. No calf pain or tenderness noted. Heart hugger in place with patient demonstrating appropriate use. Antiembolism stockings, SCDs present. GASTROINTESTINAL: Abdomen soft, nontender, nondistended. Active bowel sounds present 4 quadrants. Tolerating diet. Positive bowel movement last night per patient GENITOURINARY: Continues to void clear, yellow urine. Output 1725 mL the last 24 hours INTEGUMENTARY: Skin is warm and dry with evidence of good perfusion. Anterior chest incision well approximated. Right lower extremity EVH site as well as left radial artery harvest site well approximated without redness or drainage NEUROLOGIC: Cranial nerves II through XII intact MUSKULOSKELETAL: Able to move all extremities, strength equal bilaterally, gait normal PSYCHIATRIC: Alert and oriented to person place and time, flat affect - Allied health notes Allied health notes reviewed: nursing - Labs CBC & Chem 7: 04/17/21 07:10 04/17/21 07:10 Labs: Abnormal Lab Results - Last 24 Hours (Table) 04/17/21 04/17/21 04/17/21 Range/Units 07:10 07:10 11:47 WBC 11.6 H (3.8-10.6) k/uL RBC 3.07 L (4.30-5.90) m/uL Hgb 9.5 L (13.0-17.5) gm/dL Hct 27.2 L (39.0-53.0) % Neutrophils # 9.4 H (1.3-7.7) k/uL Carbon Dioxide 21 L (22-30) mmol/L Glucose 110 H (74-99) mg/dL POC Glucose (mg/dL) 145 H (75-99) mg/dL 04/17/21 04/17/21 04/18/21 Range/Units 16:45 19:56 02:00 WBC (3.8-10.6) k/uL RBC (4.30-5.90) m/uL Hgb (13.0-17.5) gm/dL Hct (39.0-53.0) % Neutrophils # (1.3-7.7) k/uL Carbon Dioxide (22-30) mmol/L Glucose (74-99) mg/dL POC Glucose (mg/dL) 123 H 105 H 159 H (75-99) mg/dL 04/18/21 Range/Units 05:15 WBC (3.8-10.6) k/uL RBC (4.30-5.90) m/uL Hgb (13.0-17.5) gm/dL Hct (39.0-53.0) % Neutrophils # (1.3-7.7) k/uL Carbon Dioxide (22-30) mmol/L Glucose (74-99) mg/dL POC Glucose (mg/dL) 130 H (75-99) mg/dL - Imaging and Cardiology Chest x-ray: report reviewed, image reviewed Assessment and Plan Assessment: 1. Coronary artery disease, unstable angina, status post four-vessel off-pump CABG 2. History of hypertension, currently hypotensive 3. Hyperlipidemia, treated, cholesterol 152, LDL 83 4. Paroxysmal atrial fibrillation, status post left atrial appendage ligation as well as bilateral pulmonary vein ablation 5. EtOH abuse with history of withdrawal, last drink in September 2020 6. Chronic tobacco dependence, quit smoking cigarettes, still vapes 7. COPD, preoperative FEV1 97% of predicted 8. Anxiety/depression, follows with [facility] 9. Remote history of pneumonia 10. History of medical noncompliance 11. Family history of coronary artery disease 12. Vaccinated but not boosted against Covid. Positive Covid in February 2021 13. Acute blood loss anemia and thrombocytopenia, expected Plan: 1. Continue aspirin, statin, Plavix, beta lurdes. Will increase beta lurdes as tolerated. Continue Norvasc for radial artery spasm prophylaxis 2. Continue amiodarone for A. fib prophylaxis 3. Encourage incentive spirometry 10 times every hour while awake. Bronchodilators per pulmonology 4. Increase activity, ambulate as tolerated. PT/OT/cardiac rehab following 5. Will monitor daily labs and x-rays. Electrolyte replacement per protocol 6. GI/DVT prophylaxis 7. Pain control with current medication regimen. We will contact pain specialist regarding discharge pain medication 8. Strict accurate intake and output. Daily weights. Patient to shower daily 9. Smoking cessation counseling offered, encourage complete smoking cessation 10. Insulin management per internal medicine service. Patient is not diabetic, preoperative hemoglobin A1c 6%, however he does need tight blood sugar control to promote sternal union and prevent infection 11. Discharge planning in progress. Anticipate discharge to home with home care in the next 24 hours 12. More recommendations to follow Time with Patient: Greater than 30
[2021-04-18 08:37] LABS: HCT 25.6 % (39.0-53.0); HGB 8.5 gm/dL (13.0-17.5); MCH 30.5 pg (25.0-35.0); MCHC 33.2 g/dL (31.0-37.0); MCV 91.9 fL (80.0-100.0); Mean Platelet Volume 7.6; Platelet Count 272 k/uL (150-450); RBC 2.78 m/uL (4.30-5.90); RDW 13.8 % (11.5-15.5); WBC 8.9 k/uL (3.8-10.6)
[2021-04-18 08:55] LABS: African American GFR (CKD) >90 (>60 ml/min/1.73 sqM); Anion Gap 9 mmol/L; Blood Urea Nitrogen 17 mg/dL (9-20); Carbon Dioxide 21 mmol/L (22-30); Chloride 106 mmol/L (98-107); Glucose 157 mg/dL (74-99); Magnesium 1.7 mg/dL (1.6-2.3); Non-African American GFR(CKD) >90 (>60 ml/min/1.73 sqM); Potassium 3.7 mmol/L (3.5-5.1); Sodium 136 mmol/L (137-145)
[2021-04-18] MEDS ORDERED: FUROSEMIDE 10 MG/ML 2 ML VIAL IV ONE (08:58)
[2021-04-18] MEDS ORDERED: POTASSIUM CHLORIDE ER 20 MEQ TAB.ER PO STA (08:58)
[2021-04-18] MEDS: ATORVASTATIN 40 MG TAB PO SCH (09:23)
[2021-04-18] MEDS: MULTIVITAMINS, THERA 1 EACH TAB PO SCH (09:23)
[2021-04-18] MEDS: FOLIC ACID-VIT B COMPLEX-VIT C 1 CAP PO SCH (09:23)
[2021-04-18] MEDS: METOPROLOL TARTRATE 25 MG TAB PO SCH ×2 (09:23→20:10)
[2021-04-18] MEDS: ASPIRIN 325 MG TAB PO SCH (09:23)
[2021-04-18] MEDS: CLOPIDOGREL 75 MG TAB PO SCH (09:23)
[2021-04-18] MEDS: AMIODARONE 200 MG TAB PO SCH ×2 (09:24→20:10)
[2021-04-18] MEDS: IPRATROPIUM-ALBUTEROL 3 ML NEB INHALATION SCH ×4 (09:31→20:26)
[2021-04-18 11:47] LABS: Glucose,Whole Blood 114 mg/dL (75-99)
[2021-04-18] MEDS: amLODIPine 5 MG TAB PO SCH (12:17)
--- NOTE | 2021-04-18 12:20 | P.PN ---
Subjective This is a 55 year old male with a past medical history of hypertension, hyperlipidemia, paroxysmal atrial fibrillation, EtOH abuse with history of wi thdrawal (last drink september 2020), chronic tobacco dependence, COPD, anxiety/depression, coronary artery disease involving the left main as well as LAD. He follows in the office with Dr. Savage. Patient presents to the hospital planned CABG. 04/14/2021 Patient underwent CABG 4 with AZUL to the diagonal and LAD, left radial artery T graft off the AZUL to the OM, SVG to the posterior descending ar prabhu, Left atrial appendage ligation and bilateral pulmonary vein ablation. 04/18/2021 Patient seen and examined at bedside, no acute distress. He is up in the recliner chair, feeling well, having post surgical pain. He has no shortness of breath. He is maintaining sinus mechanism on telemetry HR 70s-80s. Hemodynamically stable. Labs: WBC 8.9, hemoglobin 8.5, platelets 272, sodium 136, potassium 3.7, BUN 17, serum creatinine 0.7, Mag 1.7. Meds: Amiodarone 200 mg twice a day, amlodipine 5 mg daily, aspirin 325 mg daily, atorvastatin 40 mg daily, Plavix 75 mg daily, metoprolol tartrate 25 mg twice a day GENERAL: Well-appearing, well-nourished and in no acute distress. NECK: Supple without JVD or thyromegaly. LUNGS: Breath sounds clear to auscultation bilaterally. Respiration equal and unlabored. No wheezes, rales or rhonchi. HEART: Regular rate and rhythm without murmurs, rubs or gallops. S1 and S2 heard. Anterior chest incision well approximated. EXTREMITIES: Normal range of motion, trace bilateral lower extremity edema. No clubbing or cyanosis. Peripheral pulses intact. ASSESSMENT Coronary artery disease s/p 4 vessel CABG on 04/14/2021 History of hypertension Hyperlipidemia Paroxysmal atrial fibrillation status post left atrial appendage ligation as well as bilateral pulmonary vein ablation EtOH abuse with history of withdrawal Chronic tobacco dependence, History of COPD History of Anxiety/depression PLAN Continue aspirin, statin, Plavix, beta lurdes. Patient on amiodarone for A. fib prophylaxis Encourage incentive spirometry 10 times every hour while awake Increase activity, ambulate as tolerated We will continue to follow On discharge, patient to follow up with Dr. Savage Nurse Practitioner note has been reviewed, I agree with a documented findings, assessment and plan of care. Patient was seen and examined. Objective - Vital Signs Vital signs: Vital Signs Temp 97.8 F 04/18/21 11:29 Pulse 73 04/18/21 11:29 Resp 18 04/18/21 11:29 BP 133/84 04/18/21 11:29 Pulse Ox 95 04/18/21 11:29 Intake & Output 04/17/21 04/18/21 04/18/21 18:59 06:59 18:59 Intake Total 720 690 120 Output Total 950 775 Balance -230 -85 120 Weight 100.6 kg Intake: Oral 720 690 120 Output: Urine 950 775 ABP, PAP, CO, CI - Last Documented Arterial Blood Pressure 138/54 Pulmonary Artery Pressure 38/19 Cardiac Output 5.6 Cardiac Index 2.7 - Labs CBC & Chem 7: 04/18/21 07:48 04/18/21 07:48 Labs: Abnormal Lab Results - Last 24 Hours (Table) 04/17/21 04/17/21 04/17/21 Range/Units 11:47 16:45 19:56 RBC (4.30-5.90) m/uL Hgb (13.0-17.5) gm/dL Hct (39.0-53.0) % Sodium (137-145) mmol/L Carbon Dioxide (22-30) mmol/L Glucose (74-99) mg/dL POC Glucose (mg/dL) 145 H 123 H 105 H (75-99) mg/dL 04/18/21 04/18/21 04/18/21 Range/Units 02:00 05:15 07:48 RBC 2.78 L (4.30-5.90) m/uL Hgb 8.5 L (13.0-17.5) gm/dL Hct 25.6 L (39.0-53.0) % Sodium (137-145) mmol/L Carbon Dioxide (22-30) mmol/L Glucose (74-99) mg/dL POC Glucose (mg/dL) 159 H 130 H (75-99) mg/dL 04/18/21 Range/Units 07:48 RBC (4.30-5.90) m/uL Hgb (13.0-17.5) gm/dL Hct (39.0-53.0) % Sodium 136 L (137-145) mmol/L Carbon Dioxide 21 L (22-30) mmol/L Glucose 157 H (74-99) mg/dL POC Glucose (mg/dL) (75-99) mg/dL
--- NOTE | 2021-04-18 14:27 | P.PN ---
Subjective Progress Note Date: 04/18/21 Principal diagnosis: Status post cardiac surgery. The patient is seen today 04/15/2021 in follow-up in the intensive care unit. This is postoperative day #1 of a off-pump coronary artery bypass surgery 4. He was successfully extubated within the 6 hour window yesterday. Currently sitting up in a chair. Awake and alert in no acute distress. Still having some issues with pain management. He is still requiring 12 L high flow nasal cannula to maintain O2 saturations in the 90s. He is on insulin at 1.5 units per hour. Lactated Ringer's at 50 mL per hour. He was having some issues with hypotension and has received albumin 4. Cardiac output 5.6. Cardiac index 2.7. PA pressures 38/19. CVP 16. Chest x-ray reveals persistent but improving basilar strandy densities most likely atelectasis. Pulling approximately 1000 on the incentive spirometer. Mediastinal chest tube had 470 mls serosanguineous fluid out to surgery. Left pleural chest tube 270 mL polyp surgery. Both wall suction. No air leaks present. Right IJ Normandy-Kannan catheter in place. Right radial arterial line in place. White count 7.4. Hemoglobin 8.3. Platelet count 118,000. Sodium 135. Potassium 4.8. Chloride 106. Bicarb 19. BUN 24. Creatinine 1.2. He remains on bronchodilators. Heparin for DVT prophylaxis. . 04/16/2021, the patient is being seen for a follow-up. The patient is postop day #2. The patient is post coronary bypass surgery 4. The patient is on 8 L of oxygen by nasal cannula and this was weaned down to 5 L. His chest x-ray showing adequate expansion of the lungs and there is no evidence of any pneumothorax. The patient's chest tubes have been removed. Normandy-Kannan catheter is also been removed. The patient is using incentive spirometer, pulling appro ximately 1500. Otherwise, no other significant complaints. Moving all 4 extremity is without any limitation. He has some surgical pain along the surgical wound site which is in the order of 5 out of 10 in severity. CVP today's at 9. He did ambulate yesterday. His hemoglobin is at 8.[address] atelet count of 154. Sodium is at 133, BUN is at 20 with a creatinine of 0.8. Glucose is 122. 04/17/2021, the patient is doing well. No specific complaints. He is on room air oxygen. He is postop day #3. He underwent four-vessel bypass surgery. Chest x-ray shows no evidence of any pneumothorax. Some atelectatic changes are seen bilaterally. Nevertheless, patient is improved. The patient's chest tubes are all removed. Cardiac rhythm is sinus. Using incentive spirometer. Remains on a combination of aspirin and Plavix and the patient is also taking metoprolol 25 mg twice a day and amiodarone for atrial fibrillation prophylaxis. No other significant events otherwise for now. The patient's white cell count is at 11.6 with a hemoglobin of 9.5. Electrolytes are all within normal limits. Progress note dated 04/18/2021. Currently, the patient's doing well. The patient is postop day #4. He underwent four-vessel bypass surgery. He's currently on room air. Chest x-ray show some postsurgical changes, but no evidence of pneumothorax. Laboratory data includes a white count of 8.9, hemoglobin 8.5, hematocrit 25.6, and platelet count 272,000. Sodium 136, potassium 3.7, chlorides 106, CO2 21, anion gap 9, BUN 17, creatinine 0.78. Calcium is 9. Magnesium 1.7. Chest x-ray shows some left lobe atelectasis. Objective - Vital Signs Vital signs: Vital Signs Temp 97.8 F 04/18/21 11:29 Pulse 73 04/18/21 11:29 Resp 18 04/18/21 11:29 BP 133/84 04/18/21 11:29 Pulse Ox 95 04/18/21 11:29 Intake & Output 04/17/21 04/18/21 04/18/21 18:59 06:59 18:59 Intake Total 720 690 240 Output Total 950 775 Balance -230 -85 240 Weight 100.6 kg Intake: Oral 720 690 240 Output: Urine 950 775 Other: Voiding Method Urinal ABP, PAP, CO, CI - Last Documented Arterial Blood Pressure 138/54 Pulmonary Artery Pressure 38/19 Cardiac Output 5.6 Cardiac Index 2.7 - Exam No acute distress, oriented 3. Currently on room air. No use of accessory muscles or conversational dyspnea. HEENT examination is grossly unremarkable. Neck supple. Full range of motion. No adenopathy thyromegaly or neck vein distention. Cardiovascular examination reveals regular rhythm rate. S1-S2 normal. No S3 or S4. No discernible murmur noted. Heart rate 73 bpm. Heart sounds are distant. Lungs reveal mostly clear breath sounds. Minimal scattered rhonchi. No wheezes or crackles. Breath sounds equal bilaterally. Abdomen soft bowel sounds are heard. No masses or tenderness. Extremities are intact. No cyanosis clubbing or edema. Skin is without rash or lesion. Neurologic examination is brief but nonfocal. - Labs CBC & Chem 7: 04/18/21 07:48 04/18/21 07:48 Labs: Abnormal Lab Results - Last 24 Hours (Table) 04/17/21 04/17/21 04/18/21 Range/Units 16:45 19:56 02:00 RBC (4.30-5.90) m/uL Hgb (13.0-17.5) gm/dL Hct (39.0-53.0) % Sodium (137-145) mmol/L Carbon Dioxide (22-30) mmol/L Glucose (74-99) mg/dL POC Glucose (mg/dL) 123 H 105 H 159 H (75-99) mg/dL 04/18/21 04/18/21 04/18/21 Range/Units 05:15 07:48 07:48 RBC 2.78 L (4.30-5.90) m/uL Hgb 8.5 L (13.0-17.5) gm/dL Hct 25.6 L (39.0-53.0) % Sodium 136 L (137-145) mmol/L Carbon Dioxide 21 L (22-30) mmol/L Glucose 157 H (74-99) mg/dL POC Glucose (mg/dL) 130 H (75-99) mg/dL 04/18/21 Range/Units 11:45 RBC (4.30-5.90) m/uL Hgb (13.0-17.5) gm/dL Hct (39.0-53.0) % Sodium (137-145) mmol/L Carbon Dioxide (22-30) mmol/L Glucose (74-99) mg/dL POC Glucose (mg/dL) 114 H (75-99) mg/dL Assessment and Plan Assessment: Status post four-vessel bypass grafting, postop day #4, for symptomatic CAD. Routine postoperative ventilator management. Hypertension. Hyperlipidemia. COPD History of paroxysmal atrial fibrillation. Chronic cervical neck pain. History of COVID 19 infection, February 2021. Plan: Plan dated 04/18/2021. The patient continues on aspirin and Plavix. The patient is currently receiving metoprolol and amiodarone. The patient is currently on room air. The patient continues to use the incentive spirometer, every hour while awake. Possible discharge in the next 24 hours. No additional recommendations are made. We'll continue sliding scale insulin coverage, and pain control. The patient was transferred out of the intensive care unit. Time with Patient: Less than 30
[2021-04-18] MEDS ORDERED: bisacodyL 10 MG SUPP RECTAL STA (14:33)
--- NOTE | 2021-04-18 14:45 | P.PN ---
Subjective Progress Note Date: 04/18/21 This is a pleasant 55-year-old male who was recently admitted under cardio- thoracic surgery services with a past medical history of coronary artery disease, unstable angina, hypertension, hyperlipidemia, paroxysmal atrial fibrillation, chronic nicotine dependence, COPD, anxiety depression, recent EtOH abuse with his reported last drink approximately 6 months ago. Patient is postop day #1 status post CABG and is being closely monitored currently in the ICU. We are consulted for medical management. Patient was recently extubated yesterday afternoon and is currently sitting up in the recliner. Patient reports to generalized pain throughout mostly feelings of pain in the substernal area. Heart hugger noted. Patient with incentive spirometer at the bedside and encourage the patient to continue using at least 10 times every hour while awake. Patient is being started on diet of clear liquids and is currently maintained on insulin drip per ICU protocol. Once advanced diet as tolerated patient may be transitioned to Accu-Cheks before meals and at bedtime along with sliding scale as needed for tight glycemic control. Patient does not have history of diabetes mellitus per the patient. Chest x-ray today shows persistent but improving basilar strandy densities felt to reflect atelectasis with pleural effusion unchanged. Labs this morning reveal a WBC of 7.4, hemoglobin is 8.3, platelets are 118, sodium is 135, potassium 4.8, BUN 24, creatinine 1.32, calcium 8.6, magnesium 2.1. 04/16/2021 Patient today sitting up in the chair. He is postop day #2 4 vessel coronary artery bypass grafting. Complains of feeling generalized pain and aches all over. Also complains of midsternal pain and discomfort, post surgical, per RN pain medications are being adjusted by primary team. Having some shortness of breath worse with ambulation. He has walked in the hallway. No BM but is passing gas. He is tolerating a regular diet and was transitioned off of insulin drip this morning. He continues now on NovoLog sliding scale and blood sugars are in the 130s. Continue to monitor closely patient may require mealtime insulin if his glucose increases. Labs today show a white count 12.1, hemoglobin 8.7, sodium 133, potassium 4.3, CO2 20, AST 68, alk phos 26. Patient has remained afebrile, heart rate 89, respirations 32, blood pressure 132/80, 94% on 3L NC. Chest xray today shows mild basilar linear atelectasis. Humphries catheter and chest tubes are out. Patient encouraged to ambulate and continue to use incentive spirometer. 04/17/2021 Patient evaluated today sitting up in the chair, walked in the hallway today. He is post operative day #3 4 vessel CABG. Heart hugger in place and patient using appropriately. Patient complains of post surgical chest pain rating a 5/10, he is receiving percocet as needed for this and states it is helping. Reports some shortness of breath when ambulating. He is using his incentive spirometer and ambulating to the rest room as well. Passing gas, no BM. On senna daily with PRN dulcolax as needed, would recommend giving today. Also complaining of anxiety and requesting medication, discussed with nursing staff who will ok medication with primary. Blood pressure elevated today 150/90s. Patient was started on norvasc by primary. Patient also received a 1 time dose of IV lasix today. Tolearating some diet, blood sugars have ranged from 60's to 140's today. Will continue with only sliding scale for now until sugars have stabilized to avoid hypoglycemia. Chest xray today: Persistent left lower lobe atelectasis and or infiltrate with small effusions. Labs today: WBC 11.6, hgb 9.5, platelets 215, sodium 138, BUN 16, creatinine 0.75, AST 57, alk phos 39. 04/18/2021 Patient evaluated today on step down unit he is resting in bed currently. He is postop day #4 for vessel coronary artery bypass grafting, heart hugger is in place. Per patient, he did not sleep well last night. Only complaint today is still the postsurgical midsternal chest pain states is controlled with current pain medication. Chest x-ray today shows probable left lower lobe atelectasis with possible small associated effusion. Patient to receive a 20 mg IV dose of insulin 1. Magnesium was also placed today and he received oral potassium. Patient had a bowel movement since surgery, positive bowel sounds, he is passing gas. Continues on Senokot daily as well as a Dulcolax suppository daily which has not been given yet. No shortness of breath today. Labs show white count 8.9, hemoglobin 8.5. Sodium 136, potassium 3.7, mag 1.7, blood glucose in the 110s. Patient is afebrile, heart rate 73, blood pressure 133/84 and he is 95% on room air. Needs encouragement to ambulate and use IS. Review of Systems Constitutional: Denies fatigue, denies any fever, Cardio vascular: denied any chest pain, palpitations. Reports post surgical chest discomfort Gastrointestinal: denied any nausea, vomiting, diarrhea, no BM, passing gas Pulmonary: Reports shortness of breath with ambulation, no cough Neurologic denied any new focal deficits All inpatient medications were reviewed and appropriate changes in these medications as dictated in the interval history and assessment and plan. PHYSICAL EXAMINATION: GENERAL: The patient is alert and oriented x4, Well developed, well nourished. Obese, slightly anxious HEENT: Pupils are round and equally reacting to light. EOMI. does have scleral icterus. No conjunctival pallor. Normocephalic, atraumatic. No pharyngeal erythema. No thyromegaly. CARDIOVASCULAR: S1 and S2 muffled PULMONARY: diminished breath sounds bilaterally with no wheezing or rhonchi noted. ABDOMEN: soft. Nontender on exam. obese. non-distended, hypoactive bowel sounds. No palpable organomegaly. MUSCULOSKELETAL: No joint swelling or deformity. EXTREMITIES: No cyanosis, clubbing, mild peripheral edema. Sternal surgical dressing is dry and intact NEUROLOGICAL: Gross neurological examination did not reveal any focal deficits. Diffuse weakness SKIN: No rashes. Assessment: Coronary artery disease status post CABG postop day #4 Leukocytosis, reactive to surgery, improved History of hypertension, was hypotensive post surgical now with hypertension, patient has had lopressor increased and was started on norvasc today for radial artery prophylaxis by primary. Hyperlipidemia History of paroxysmal atrial fibrillation, currently on subcutaneous heparin COPD, not in acute exacerbation Elevated random glucose, continue sliding scale and Accu checks before meals and at bedtime for tight glycemic control, most recent A1c is 6.0 with no history of diabetes. Recent COVID-19 infection in February 2021 History of EtOH abuse, reports the last drink in September Continued ongoing nicotine dependence, most recently quit 2 weeks ago Anxiety, depression GI prophylaxis DVT prophylaxis, subcu heparin Full code Plan: Recommend to continue with current medications and management per cardiothoracic services as primary. Patient is now post op day #4 and has been downgraded out of the ICU, plan for discharge home tomorrow. Patient has been weaned off oxygen support, Encouraged incentive spirometer at least 10 times every hour while awake. Patient currently reaching 1500 however needs encouragement. Encouraged increased activity as tolerated and physical therapy/cardiac rehab has been consulted. Patient does have a past medical history of multiple hospitalizations secondary to acute alcohol withdrawal and intoxication although reports his last drink was 6 months ago in September 2020. Patient also most recently quit smoking cigarettes approximately 2 weeks ago although reports to continued vaping. Encouraged cessation. Patient with some constipation, no BM since before surgery, continue with senna, and recommend giving the as needed dulcolax today. Urinating without difficulty since catheter discontinuation. Will continue to follow with CT surgery during hospitalization. Thank you for this consultation. Objective - Vital Signs Vital signs: Vital Signs Temp 97.8 F 04/18/21 11:29 Pulse 73 04/18/21 11:29 Resp 18 04/18/21 11:29 BP 133/84 04/18/21 11:29 Pulse Ox 95 04/18/21 11:29 Intake & Output 04/17/21 04/18/21 04/18/21 18:59 06:59 18:59 Intake Total 720 690 120 Output Total 950 775 Balance -230 -85 120 Weight 100.6 kg Intake: Oral 720 690 120 Output: Urine 950 775 ABP, PAP, CO, CI - Last Documented Arterial Blood Pressure 138/54 Pulmonary Artery Pressure 38/19 Cardiac Output 5.6 Cardiac Index 2.7 - Labs CBC & Chem 7: 04/18/21 07:48 04/18/21 07:48 Labs: Abnormal Lab Results - Last 24 Hours (Table) 04/17/21 04/17/21 04/18/21 Range/Units 16:45 19:56 02:00 RBC (4.30-5.90) m/uL Hgb (13.0-17.5) gm/dL Hct (39.0-53.0) % Sodium (137-145) mmol/L Carbon Dioxide (22-30) mmol/L Glucose (74-99) mg/dL POC Glucose (mg/dL) 123 H 105 H 159 H (75-99) mg/dL 04/18/21 04/18/21 04/18/21 Range/Units 05:15 07:48 07:48 RBC 2.78 L (4.30-5.90) m/uL Hgb 8.5 L (13.0-17.5) gm/dL Hct 25.6 L (39.0-53.0) % Sodium 136 L (137-145) mmol/L Carbon Dioxide 21 L (22-30) mmol/L Glucose 157 H (74-99) mg/dL POC Glucose (mg/dL) 130 H (75-99) mg/dL 04/18/21 Range/Units 11:45 RBC (4.30-5.90) m/uL Hgb (13.0-17.5) gm/dL Hct (39.0-53.0) % Sodium (137-145) mmol/L Carbon Dioxide (22-30) mmol/L Glucose (74-99) mg/dL POC Glucose (mg/dL) 114 H (75-99) mg/dL Assessment and Plan Time with Patient: Less than 30
[2021-04-18 16:32] LABS: Glucose,Whole Blood 113 mg/dL (75-99)
[2021-04-18] MEDS ORDERED: MAGNESIUM OXIDE 400 MG TAB PO STA (17:31)
[2021-04-18] MEDS: MAGNESIUM SULFATE-D5W PMX 1 GM in DEXTROSE/WATER 1 100ML.BAG IVPB SCH (18:02)
[2021-04-18] MEDS: SENNOSIDES-DOCUSATE SODIUM 1 EACH TAB PO SCH (20:10)
[2021-04-18] MEDS: MELATONIN 3 MG TABLET PO SCH (20:10)
[2021-04-18 20:17] LABS: Glucose,Whole Blood 133 mg/dL (75-99)
[2021-04-19] MEDS: HEPARIN SODIUM,PORCINE/PF 5,000 UNIT/0.5 ML SYRINGE SQ SCH ×2 (00:18→07:36)
[2021-04-19] MEDS: oxyCODONE-APAP 10-325MG 1 EACH TAB PO PRN ×2 (00:18→06:33)
[2021-04-19 02:14] LABS: Glucose,Whole Blood 127 mg/dL (75-99)
[2021-04-19 06:08] LABS: Glucose,Whole Blood 151 mg/dL (75-99)
[2021-04-19] MEDS: PANTOPRAZOLE 40 MG TABLET PO SCH (06:34)
[2021-04-19] MEDS: INSULIN ASPART (NovoLOG) 100 UNIT/ML VIAL SQ SCH ×2 (06:34→11:16)
[2021-04-19] MEDS ORDERED: oxyCODONE-APAP 10-325MG 1 EACH TAB PO PRN ×2 (07:05→11:55)
[2021-04-19] MEDS: ATORVASTATIN 40 MG TAB PO SCH (07:36)
[2021-04-19] MEDS: CLOPIDOGREL 75 MG TAB PO SCH (07:36)
[2021-04-19] MEDS: MULTIVITAMINS, THERA 1 EACH TAB PO SCH (07:36)
[2021-04-19] MEDS: AMIODARONE 200 MG TAB PO SCH (07:36)
[2021-04-19] MEDS: METOPROLOL TARTRATE 25 MG TAB PO SCH (07:36)
[2021-04-19] MEDS: ASPIRIN 325 MG TAB PO SCH (07:37)
[2021-04-19] MEDS: IPRATROPIUM-ALBUTEROL 3 ML NEB INHALATION SCH ×2 (07:39→11:08)
[2021-04-19] MEDS: FOLIC ACID-VIT B COMPLEX-VIT C 1 CAP PO SCH (07:40)
[2021-04-19 08:19] LABS: HCT 28.2 % (39.0-53.0); HGB 9.4 gm/dL (13.0-17.5); MCH 31.2 pg (25.0-35.0); MCHC 33.5 g/dL (31.0-37.0); MCV 93.3 fL (80.0-100.0); Mean Platelet Volume 7.4; Platelet Count 346 k/uL (150-450); RBC 3.02 m/uL (4.30-5.90); RDW 14.5 % (11.5-15.5); WBC 9.1 k/uL (3.8-10.6)
[2021-04-19 08:33] LABS: African American GFR (CKD) >90 (>60 ml/min/1.73 sqM); Anion Gap 8 mmol/L; Blood Urea Nitrogen 14 mg/dL (9-20); Calcium 9.3 mg/dL (8.4-10.2); Carbon Dioxide 26 mmol/L (22-30); Chloride 106 mmol/L (98-107); Glucose 133 mg/dL (74-99); Magnesium 1.7 mg/dL (1.6-2.3); Non-African American GFR(CKD) >90 (>60 ml/min/1.73 sqM); Potassium 3.7 mmol/L (3.5-5.1); Sodium 140 mmol/L (137-145)
--- NOTE | 2021-04-19 08:39 | XR ---
EXAMINATION TYPE: XR chest 2V DATE OF EXAM: 04/19/2021 COMPARISON: 04/18/2021 HISTORY: 55 year-old male post cardiac surgery TECHNIQUE: PA and lateral views FINDINGS: Median sternotomy wires are present with postsurgical clips in the mediastinum. Heart borderline enla rged. Small bilateral pleural effusions appear new or increased with some mild patchy basilar opaciti es. IMPRESSION: 1. New/increased small bilateral pleural effusions with adjacent atelectasis and/or consolidation. 2. Similar borderline to mild cardiomegaly.
[2021-04-19] MEDS ORDERED: POTASSIUM CHLORIDE ER 20 MEQ TAB.ER PO STA (09:19)
[2021-04-19] MEDS ORDERED: FUROSEMIDE 10 MG/ML 2 ML VIAL IV ONE (09:19)
[2021-04-19] MEDS ORDERED: MAGNESIUM OXIDE 400 MG TAB PO STA (09:19)
--- NOTE | 2021-04-19 09:21 | P.PN ---
Subjective Progress Note Date: 04/19/21 Principal diagnosis: Coronary artery disease, unstable angina. Previous medical history of hypertension, hyperlipidemia, paroxysmal atrial fibrillation, EtOH abuse with history of withdrawal, last drink in September 2020, chronic tobacco dependence, COPD, anxiety/depression, remote history of pneumonia, medical noncompliance, and family history of coronary artery disease. Vaccinated but not boosted against Covid POD #5 off-pump CABG 4 with sequential left internal mammary artery to the diagonal and the left anterior descending coronary artery, left radial artery T graft off the AZUL to the obtuse marginal, saphenous vein graft to the posterior descending artery with endovascular vein harvest, Endo radial artery harvest, bilateral pulmonary vein ablation, occlusion of the left atrial appendage was a 35 mm AtriCure clip, epi-aortic ultrasound, intraoperative transesophageal echocardiogram performed by anesthesia Acute blood loss anemia and thrombocytopenia, expected given hemodilution Hypotension, unexpected The patient was seen and examined this morning with Dr. Espinoza sitting up in a recliner on the cardiac stepdown unit in no acute distress. He does complain of post surgical pain, denies shortness of breath. He has ambulated in the hallway with therapy. Remains in sinus rhythm, hemodynamically stable. Patient's only real complaint is his chronic pain combined with post surgical pain. Continues to use incentive spirometer. Patient's pain specialist was contacted yesterday for recommendations. No other new concerns. Objective - Vital Signs Vital signs: Vital Signs Temp 98 F 04/19/21 04:00 Pulse 84 04/19/21 07:49 Resp 18 04/19/21 04:00 BP 136/90 04/19/21 04:00 Pulse Ox 100 04/19/21 04:00 Intake & Output 04/18/21 04/19/21 04/19/21 18:59 06:59 18:59 Intake Total 780 180 Output Total 200 950 Balance 580 -770 Weight 99.7 kg Intake: Oral 780 180 Output: Urine 200 950 Other: Voiding Method Urinal Urinal # Voids 1 ABP, PAP, CO, CI - Last Documented Arterial Blood Pressure 138/54 Pulmonary Artery Pressure 38/19 Cardiac Output 5.6 Cardiac Index 2.7 - Exam CONSTITUTIONAL: Appears cooperative, no acute distress RESPIRATORY: Lungs sounds diminished bilaterally. Respirations even, nonlabored. Currently on room air with oxygen saturation 100%. Able to achieve 1500 mL on incentive spirometry. Strong cough. CARDIOVASCULAR: S1, S2 present. Regular rate and rhythm, sinus rhythm on telemetry. Sternum stable. Palpable peripheral pulses bilaterally. Trace bilateral lower extremity edema present. No calf pain or tenderness noted. Heart hugger in place with patient demonstrating appropriate use. Antiembolism stockings, SCDs present. GASTROINTESTINAL: Abdomen soft, nontender, nondistended. Active bowel sounds present 4 quadrants. Tolerating diet. Positive bowel movement GENITOURINARY: Continues to void clear, yellow urine. Output 1150 mL the last 24 hours INTEGUMENTARY: Skin is warm and dry with evidence of good perfusion. Anterior chest incision well approximated. Right lower extremity EVH site as well as left radial artery harvest site well approximated without redness or drainage NEUROLOGIC: Cranial nerves II through XII intact MUSKULOSKELETAL: Able to move all extremities, strength equal bilaterally, gait normal PSYCHIATRIC: Alert and oriented to person place and time, flat affect - Allied health notes Allied health notes reviewed: nursing - Labs CBC & Chem 7: 04/19/21 08:01 04/19/21 08:01 Labs: Abnormal Lab Results - Last 24 Hours (Table) 04/18/21 04/18/21 04/18/21 Range/Units 11:45 16:30 20:16 RBC (4.30-5.90) m/uL Hgb (13.0-17.5) gm/dL Hct (39.0-53.0) % Glucose (74-99) mg/dL POC Glucose (mg/dL) 114 H 113 H 133 H (75-99) mg/dL 04/19/21 04/19/21 04/19/21 Range/Units 02:12 06:07 08:01 RBC 3.02 L (4.30-5.90) m/uL Hgb 9.4 L (13.0-17.5) gm/dL Hct 28.2 L (39.0-53.0) % Glucose (74-99) mg/dL POC Glucose (mg/dL) 127 H 151 H (75-99) mg/dL 04/19/21 Range/Units 08:01 RBC (4.30-5.90) m/uL Hgb (13.0-17.5) gm/dL Hct (39.0-53.0) % Glucose 133 H (74-99) mg/dL POC Glucose (mg/dL) (75-99) mg/dL - Imaging and Cardiology Chest x-ray: report reviewed, image reviewed Assessment and Plan Assessment: 1. Coronary artery disease, unstable angina, status post four-vessel off-pump CABG 2. History of hypertension, currently hypotensive 3. Hyperlipidemia, treated, cholesterol 152, LDL 83 4. Paroxysmal atrial fibrillation, status post left atrial appendage ligation as well as bilateral pulmonary vein ablation 5. EtOH abuse with history of withdrawal, last drink in September 2020 6. Chronic tobacco dependence, quit smoking cigarettes, still vapes 7. COPD, preoperative FEV1 97% of predicted 8. Anxiety/depression, follows with [facility] 9. Remote history of pneumonia 10. History of medical noncompliance 11. Family history of coronary artery disease 12. Vaccinated but not boosted against Covid. Positive Covid in February 2021 13. Acute blood loss anemia and thrombocytopenia, expected Plan: 1. Continue aspirin, statin, Plavix, beta lurdes. Continue Norvasc for radial artery spasm prophylaxis 2. Continue amiodarone for A. fib prophylaxis 3. Encourage incentive spirometry 10 times every hour while awake. Bronchodi lators per pulmonology 4. Increase activity, ambulate as tolerated. PT/OT/cardiac rehab following 5. Will monitor daily labs and x-rays. Electrolyte replacement per protocol 6. GI/DVT prophylaxis 7. Pain control with current medication regimen. 8. Strict accurate intake and output. Daily weights. Patient to shower daily 9. Smoking cessation counseling offered, encourage complete smoking cessation 10. Insulin management per internal medicine service. Patient is not diabetic, preoperative hemoglobin A1c 6%, however he does need tight blood sugar control to promote sternal union and prevent infection 11. Discharge planning in progress. Anticipate discharge to home with home care this afternoon 12. More recommendations to follow Time with Patient: Greater than 30
[2021-04-19] MEDS ORDERED: FUROSEMIDE 40 MG TAB PO STA (09:40)
[2021-04-19 11:12] LABS: Glucose,Whole Blood 120 mg/dL (75-99)
[2021-04-19] MEDS: amLODIPine 5 MG TAB PO SCH (11:50)
--- NOTE | 2021-04-19 11:54 | P.PN ---
Subjective Progress Note Date: 04/19/21 Principal diagnosis: Status post four-vessel bypass grafting On 04/19/2021 patient seen in follow-up on selective care unit. Patient is awake and alert, in no acute distress, breathing comfortably, room air pulse ox 94- 100%, hemodynamically she has been stable, in sinus mechanism, patient stated that he has been tolerating ambulation in the room. His been working incentive spirometer, incentive spirometer effort today is 2.5 L. Today's chest x-ray has been reviewed showing new/increased small bilateral pleural effusions with adjacent atelectasis and/or consolidation. Borderline cardiomegaly. Today's labs have been reviewed showing white blood cell count of 9.1, hemoglobin of 9.4, electrolytes and renal profile are unremarkable. Chest tubes have been discontinued. Humphries catheter has been discontinued. Patient is a conization of aspirin, Plavix, he is on subcu heparin 5000 units every 8 hours, is on metoprolol 25 mg twice daily. Objective - Vital Signs Vital signs: Vital Signs Temp 98 F 04/19/21 04:00 Pulse 76 04/19/21 11:20 Resp 18 04/19/21 04:00 BP 136/90 04/19/21 04:00 Pulse Ox 100 04/19/21 04:00 Intake & Output 04/18/21 04/19/21 04/19/21 18:59 06:59 18:59 Intake Total 780 180 Output Total 200 950 Balance 580 -770 Weight 99.7 kg Intake: Oral 780 180 Output: Urine 200 950 Other: Voiding Method Urinal Urinal # Voids 1 ABP, PAP, CO, CI - Last Documented Arterial Blood Pressure 138/54 Pulmonary Artery Pressure 38/19 Cardiac Output 5.6 Cardiac Index 2.7 - Exam GENERAL EXAM: Alert, very pleasant, 55-year-old white male, resting comfortably in bed with the pulse ox of 100% comfortable in no apparent distress. HEAD: Normocephalic/atraumatic. EYES: Normal reaction of pupils, equal size. Conjunctiva pink, sclera white. NOSE: Clear with pink turbinates. THROAT: No erythema or exudates. NECK: No masses, no JVD, no thyroid enlargement, no adenopathy. CHEST: No chest wall deformity. Symmetrical expansion. Midsternal incision is clean dry and intact LUNGS: Equal air entry with no crackles, wheeze, rhonchi or dullness. CVS: Regular rate and rhythm, normal S1 and S2, no gallops, no murmurs, no rubs ABDOMEN: Soft, nontender. No hepatosplenomegaly, normal bowel sounds, no guarding or rigidity. EXTREMITIES: No clubbing, no edema, no cyanosis, 2+ pulses and upper and lower extremities. MUSCULOSKELETAL: Muscle strength and tone normal. SPINE: No scoliosis or deformity SKIN: No rashes CENTRAL NERVOUS SYSTEM: Alert and oriented -3. No focal deficits, tone is normal in all 4 extremities. PSYCHIATRIC: Alert and oriented -3. Appropriate affect. Intact judgment and insight. - Labs CBC & Chem 7: 04/19/21 08:01 04/19/21 08:01 Labs: Abnormal Lab Results - Last 24 Hours (Table) 04/18/21 04/18/21 04/19/21 Range/Units 16:30 20:16 02:12 RBC (4.30-5.90) m/uL Hgb (13.0-17.5) gm/dL Hct (39.0-53.0) % Glucose (74-99) mg/dL POC Glucose (mg/dL) 113 H 133 H 127 H (75-99) mg/dL 04/19/21 04/19/21 04/19/21 Range/Units 06:07 08:01 08:01 RBC 3.02 L (4.30-5.90) m/uL Hgb 9.4 L (13.0-17.5) gm/dL Hct 28.2 L (39.0-53.0) % Glucose 133 H (74-99) mg/dL POC Glucose (mg/dL) 151 H (75-99) mg/dL 04/19/21 Range/Units 11:10 RBC (4.30-5.90) m/uL Hgb (13.0-17.5) gm/dL Hct (39.0-53.0) % Glucose (74-99) mg/dL POC Glucose (mg/dL) 120 H (75-99) mg/dL Assessment and Plan Plan: Assessment: #1. Coronary artery disease, symptomatic, status post four-vessel coronary artery bypass grafting, postoperative day #5 #2. Routine postoperative ventilator management patient was successfully weaned and extubated, continues to tolerate extubation quite well #3. Hypertension #4. Hyperlipidemia #5. COPD #6. History of paroxysmal atrial fibrillation #7. Chronic cervical neck pain #8. History of COVID-19 infection in February 2021 Plan: Patient continues to do well Remains on room air vital signs are stable Continue encouraging deep breathing and coughing, incentive spirometer Today's chest x-ray and labs have been reviewed All chest tubes and catheters have been discontinued No acute events overnight Continue aspirin, Plavix, continue metoprolol, GI and DVT prophylaxis Encourage ambulation Possible discharge home today or in the next 24 hours, please refer to CT surgery progress note I have personally seen and examined the patient, performed the documentation and the assessment and plan as written. Number of minutes spent on the visit: [10] Time with Patient: Less than 30
--- NOTE | 2021-04-19 13:39 | P.PN ---
Subjective Progress Note Date: 04/19/21 This is a pleasant 55-year-old male who was recently admitted under cardio- thoracic surgery services with a past medical history of coronary artery disease, unstable angina, hypertension, hyperlipidemia, paroxysmal atrial fibrillation, chronic nicotine dependence, COPD, anxiety depression, recent EtOH abuse with his reported last drink approximately 6 months ago. Patient is postop day #1 status post CABG and is being closely monitored currently in the ICU. We are consulted for medical management. Patient was recently extubated yesterday afternoon and is currently sitting up in the recliner. Patient reports to generalized pain throughout mostly feelings of pain in the substernal area. Heart hugger noted. Patient with incentive spirometer at the bedside and encourage the patient to continue using at least 10 times every hour while awake. Patient is being started on diet of clear liquids and is currently maintained on insulin drip per ICU protocol. Once advanced diet as tolerated patient may be transitioned to Accu-Cheks before meals and at bedtime along with sliding scale as needed for tight glycemic control. Patient does not have history of diabetes mellitus per the patient. Chest x-ray today shows persistent but improving basilar strandy densities felt to reflect atelectasis with pleural effusion unchanged. Labs this morning reveal a WBC of 7.4, hemoglobin is 8.3, platelets are 118, sodium is 135, potassium 4.8, BUN 24, creatinine 1.32, calcium 8.6, magnesium 2.1. 04/16/2021 Patient today sitting up in the chair. He is postop day #2 4 vessel coronary artery bypass grafting. Complains of feeling generalized pain and aches all over. Also complains of midsternal pain and discomfort, post surgical, per RN pain medications are being adjusted by primary team. Having some shortness of breath worse with ambulation. He has walked in the hallway. No BM but is passing gas. He is tolerating a regular diet and was transitioned off of insulin drip this morning. He continues now on NovoLog sliding scale and blood sugars are in the 130s. Continue to monitor closely patient may require mealtime insulin if his glucose increases. Labs today show a white count 12.1, hemoglobin 8.7, sodium 133, potassium 4.3, CO2 20, AST 68, alk phos 26. Patient has remained afebrile, heart rate 89, respirations 32, blood pressure 132/80, 94% on 3L NC. Chest xray today shows mild basilar linear atelectasis. Humphries catheter and chest tubes are out. Patient encouraged to ambulate and continue to use incentive spirometer. 04/17/2021 Patient evaluated today sitting up in the chair, walked in the hallway today. He is post operative day #3 4 vessel CABG. Heart hugger in place and patient using appropriately. Patient complains of post surgical chest pain rating a 5/10, he is receiving percocet as needed for this and states it is helping. Reports some shortness of breath when ambulating. He is using his incentive spirometer and ambulating to the rest room as well. Passing gas, no BM. On senna daily with PRN dulcolax as needed, would recommend giving today. Also complaining of anxiety and requesting medication, discussed with nursing staff who will ok medication with primary. Blood pressure elevated today 150/90s. Patient was started on norvasc by primary. Patient also received a 1 time dose of IV lasix today. Tolearating some diet, blood sugars have ranged from 60's to 140's today. Will continue with only sliding scale for now until sugars have stabilized to avoid hypoglycemia. Chest xray today: Persistent left lower lobe atelectasis and or infiltrate with small effusions. Labs today: WBC 11.6, hgb 9.5, platelets 215, sodium 138, BUN 16, creatinine 0.75, AST 57, alk phos 39. 04/18/2021 Patient evaluated today on step down unit he is resting in bed currently. He is postop day #4 for vessel coronary artery bypass grafting, heart hugger is in place. Per patient, he did not sleep well last night. Only complaint today is still the postsurgical midsternal chest pain states is controlled with current pain medication. Chest x-ray today shows probable left lower lobe atelectasis with possible small associated effusion. Patient to receive a 20 mg IV dose of insulin 1. Magnesium was also placed today and he received oral potassium. Patient had a bowel movement since surgery, positive bowel sounds, he is passing gas. Continues on Senokot daily as well as a Dulcolax suppository daily which has not been given yet. No shortness of breath today. Labs show white count 8.9, hemoglobin 8.5. Sodium 136, potassium 3.7, mag 1.7, blood glucose in the 110s. Patient is afebrile, heart rate 73, blood pressure 133/84 and he is 95% on room air. Needs encouragement to ambulate and use IS. 04/19/2021 Patient is seen and evaluated in follow-up continues to be on the MedSurg unit and is postop day #5 of CABG. Cardiothoracic surgery planning on possible di scharge tomorrow. Patient continues to have some feelings of shortness of breath and will be receiving a dose of Lasix today. Chest x-ray shows small bilateral pleural effusions appear new or increased with adjacent atelectasis and/or consolidation small borderline to mild cardiomegaly. Incentive spirometer at the bedside and encourage the patient to continue using along with increasing activity as tolerated. Patient is maintained on as needed sliding scale although not requiring this patient does not have history of diabetes. Patient is tolerating diet with no reports of nausea or vomiting noted. Recommend to continue with stool softeners and increased activity as tolerated. Patient denies chest pain or palpitations. Patient is afebrile. Plan is for patient to go home with home care and cardiac rehab in the outpatient setting. Encourage the patient to avoid tobacco use, alcohol, or vaping. Review of Systems Constitutional: Denies fatigue, denies any fever, Cardio vascular: denied any chest pain, palpitations. Reports post surgical chest discomfort, that is slightly improved Gastrointestinal: denied any nausea, vomiting, diarrhea, no BM, passing gas Pulmonary: Reports shortness of breath with ambulation, and feels this is slightly worse today with no cough Neurologic denied any new focal deficits All inpatient medications were reviewed and appropriate changes in these medications as dictated in the interval history and assessment and plan. Active Medications Albuterol/Ipratropium (Ipratropium-Albuterol 3 Ml Neb) 3 ml INHALATION RT-Q2H PRN PRN Reason: Shortness Of Breath Or Wheezing Albuterol/Ipratropium (Ipratropium-Albuterol 3 Ml Neb) 3 ml INHALATION RT-QID [facility] Last Admin: 04/19/21 11:08 Dose: 3 ml Documented by: Amiodarone HCl (Amiodarone 200 Mg Tab) 200 mg PO BID [facility] Last Admin: 04/19/21 07:36 Dose: 200 mg Documented by: Amlodipine Besylate (Amlodipine 5 Mg Tab) 5 mg PO DAILY@1200 [facility] Last Admin: 04/19/21 11:50 Dose: 5 mg Documented by: Aspirin (Aspirin 325 Mg Tab) 325 mg PO DAILY [facility] Last Admin: 04/19/21 07:37 Dose: 325 mg Documented by: Atorvastatin Calcium (Atorvastatin 40 Mg Tab) 40 mg PO DAILY [facility] Last Admin: 04/19/21 07:36 Dose: 40 mg Documented by: Bisacodyl (Bisacodyl 10 Mg Supp) 10 mg RECTAL DAILY PRN PRN Reason: Constipation Clopidogrel Bisulfate (Clopidogrel 75 Mg Tab) 75 mg PO DAILY [facility] Last Admin: 04/19/21 07:36 Dose: 75 mg Documented by: Heparin Sodium (Porcine) (Heparin Sodium,Porcine/Pf 5,000 Unit/0.5 Ml Syringe) 5,000 unit SQ Q8HR [facility] Last Admin: 04/19/21 07:36 Dose: 5,000 unit Documented by: Amiodarone HCl 150 mg/ (Dextrose/Water) 103 mls @ 618 mls/hr IV .Q10M PRN; Protocol PRN Reason: A.FIB/FLUTTER Insulin Aspart (Insulin Aspart (Novolog) 100 Unit/Ml Vial) 0 unit SQ ACHS [facility]; Protocol Last Admin: 04/19/21 11:16 Dose: Not Given Documented by: Magnesium Hydroxide (Magnesium Hydroxide 2,400 Mg/10 Ml Cup) 2,400 mg PO BID PRN PRN Reason: Constipation Melatonin (Melatonin 3 Mg Tablet) 6 mg PO HS [facility] Last Admin: 04/18/21 20:10 Dose: 6 mg Documented by: Metoclopramide HCl (Metoclopramide 5 Mg/Ml 2 Ml Vial) 10 mg IVP Q4H PRN PRN Reason: Nausea And Vomiting Metoprolol Tartrate (Metoprolol Tartrate 25 Mg Tab) 25 mg PO BID [facility] Last Admin: 04/19/21 07:36 Dose: 25 mg Documented by: Miscellaneous Information (Potassium Replacement Protocol 1 Each Misc) 1 each MISCELLANE DAILY PRN; Protocol PRN Reason: Per Protocol Miscellaneous Information (Magnesium Replacement Protocol 1 Each Misc) 1 each MISCELLANE DAILY PRN; Protocol PRN Reason: Per Protocol Miscellaneous Information (Phosphorus Replacement Protoco 1 Each Misc) 1 each MISCELLANE DAILY PRN; Protocol PRN Reason: Per Protocol Multivit/Ca Carb/B Cmplx/FA/Prenat (Folic Acid-Vit B Complex-Vit C 1 Cap) 1 each PO DAILY [facility] Last Admin: 04/19/21 07:40 Dose: 1 each Documented by: Multivitamins (Multivitamins, Thera 1 Each Tab) 1 each PO DAILY [facility] Last Admin: 04/19/21 07:36 Dose: 1 each Documented by: Ondansetron HCl (Ondansetron 4 Mg/2 Ml Vial) 4 mg IVP Q6HR PRN PRN Reason: Nausea And Vomiting Oxycodone/Acetaminophen (Oxycodone-Apap 10-325mg 1 Each Tab) 1 each PO Q6HR PRN PRN Reason: Moderate Pain Last Admin: 04/19/21 12:12 Dose: 1 each Documented by: Pantoprazole Sodium (Pantoprazole 40 Mg Tablet) 40 mg PO AC-BRKFST [facility] Last Admin: 04/19/21 06:34 Dose: 40 mg Documented by: Senna/Docusate Sodium (Sennosides-Docusate Sodium 1 Each Tab) 2 each PO HS [facility] Last Admin: 04/18/21 20:10 Dose: 2 each Documented by: Sodium Chloride (Sodium Chloride 0.9% Flush 10 Ml Syringe) 10 ml IV BID [facility] Last Admin: 04/19/21 07:38 Dose: Not Given Documented by: PHYSICAL EXAMINATION: GENERAL: The patient is alert and oriented x4, Well developed, well nourished. Obese, slightly anxious HEENT: Pupils are round and equally reacting to light. EOMI. does have scleral icterus. No conjunctival pallor. Normocephalic, atraumatic. No pharyngeal e rythema. No thyromegaly. heart hugger noted CARDIOVASCULAR: S1 and S2 muffled PULMONARY: diminished breath sounds bilaterally with some mild scattered rhonchi noted. ABDOMEN: soft. Nontender on exam. obese. non-distended, hypoactive bowel sounds. No palpable organomegaly. MUSCULOSKELETAL: No joint swelling or deformity. EXTREMITIES: No cyanosis, clubbing, mild peripheral edema. Sternal surgical dressing is dry and intact NEUROLOGICAL: Gross neurological examination did not reveal any focal deficits. SKIN: No rashes. Assessment: Coronary artery disease status post CABG postop day #5 Leukocytosis, reactive to surgery, improved History of hypertension, resumed on Norvasc Hyperlipidemia History of paroxysmal atrial fibrillation, currently on subcutaneous heparin COPD, not in acute exacerbation Elevated random glucose, continue sliding scale and Accu checks before meals and at bedtime for tight glycemic control, most recent A1c is 6.0 with no history of diabetes. Recent COVID-19 infection in February 2021 History of EtOH abuse, reports the last drink in September Continued ongoing nicotine dependence, most recently quit 2 weeks ago Anxiety, depression GI prophylaxis DVT prophylaxis, subcu heparin Full code Plan: Recommend to continue with current medications and management per cardiothoracic services as primary. Patient is now post op day #5 and is currently on the MedSurg unit with possible discharge tomorrow per cardiothoracic. Patient is currently on room air and continues with some mild shortness of breath and will receive a dose of Lasix today, patient continues to need strong encouragement to continue using incentive spirometer at least 10 times every hour while awake. Patient currently reaching 1500 however needs encouragement. Encouraged increased activity as tolerated and physical therapy/cardiac rehab following. Will continue to follow with CT surgery during hospitalization. Thank you for this consultation. The impression and plan of care has been dictated by Roxane Gomez, nurse practitioner as directed. MD Amparo I have performed a history and examination and MDM of this patient, discussed the same with the dictator, and agree with the dictator's assessment and plan as written ,documented as a scribe. Based on total visit time, I have performed more than 50% of the visit. Total number of minutes spent on this visit, 10 minutes. Any additional findings or plans will be noted. Objective - Vital Signs Vital signs: Vital Signs Temp 98 F 04/19/21 04:00 Pulse 84 04/19/21 07:49 Resp 18 04/19/21 04:00 BP 136/90 04/19/21 04:00 Pulse Ox 100 04/19/21 04:00 Intake & Output 04/18/21 04/19/21 04/19/21 18:59 06:59 18:59 Intake Total 780 180 Output Total 200 950 Balance 580 -770 Weight 99.7 kg Intake: Oral 780 180 Output: Urine 200 950 Other: Voiding Method Urinal Urinal # Voids 1 ABP, PAP, CO, CI - Last Documented Arterial Blood Pressure 138/54 Pulmonary Artery Pressure 38/19 Cardiac Output 5.6 Cardiac Index 2.7 - Labs CBC & Chem 7: 04/19/21 08:01 04/19/21 08:01 Labs: Abnormal Lab Results - Last 24 Hours (Table) 04/18/21 04/18/21 04/18/21 Range/Units 11:45 16:30 20:16 RBC (4.30-5.90) m/uL Hgb (13.0-17.5) gm/dL Hct (39.0-53.0) % Glucose (74-99) mg/dL POC Glucose (mg/dL) 114 H 113 H 133 H (75-99) mg/dL 04/19/21 04/19/21 04/19/21 Range/Units 02:12 06:07 08:01 RBC 3.02 L (4.30-5.90) m/uL Hgb 9.4 L (13.0-17.5) gm/dL Hct 28.2 L (39.0-53.0) % Glucose (74-99) mg/dL POC Glucose (mg/dL) 127 H 151 H (75-99) mg/dL 04/19/21 Range/Units 08:01 RBC (4.30-5.90) m/uL Hgb (13.0-17.5) gm/dL Hct (39.0-53.0) % Glucose 133 H (74-99) mg/dL POC Glucose (mg/dL) (75-99) mg/dL
--- NOTE | 2021-04-19 13:56 | P.PN ---
Subjective This is a 55 year old male with a past medical history of hypertension, hyperlipidemia, paroxysmal atrial fibrillation, EtOH abuse with history of wi thdrawal (last drink september 2020), chronic tobacco dependence, COPD, anxiety/depression, coronary artery disease involving the left main as well as LAD. He follows in the office with Dr. Savage. Patient presents to the hospital planned CABG. 04/14/2021 Patient underwent CABG 4 with AZUL to the diagonal and LAD, left radial artery T graft off the AZUL to the OM, SVG to the posterior descending ar prabhu, Left atrial appendage ligation and bilateral pulmonary vein ablation. 04/19/2021 Patient seen and examined at bedside, no acute distress. He is up in the recliner chair, feeling well, having post surgical pain. He has no shortness of breath. He is maintaining sinus mechanism on telemetry HR 70s-80s. Hemodynamically he is stable. Possible discharge today Labs: WBC 9.1, hemoglobin 9.4, platelets 346, sodium 140, potassium 3.7, BUN 14, serum creatinine 0.89, Mag 1.7. Meds: Amiodarone 200 mg twice a day, amlodipine 5 mg daily, aspirin 325 mg daily, atorvastatin 40 mg daily, Plavix 75 mg daily, metoprolol tartrate 25 mg twice a day GENERAL: Well-appearing, well-nourished and in no acute distress. NECK: Supple without JVD or thyromegaly. LUNGS: Breath sounds clear to auscultation bilaterally. Respiration equal and unlabored. No wheezes, rales or rhonchi. HEART: Regular rate and rhythm without murmurs, rubs or gallops. S1 and S2 heard. Anterior chest incision well approximated. EXTREMITIES: Normal range of motion, trace bilateral lower extremity edema. No clubbing or cyanosis. Peripheral pulses intact. ASSESSMENT Coronary artery disease s/p 4 vessel CABG on 04/14/2021 History of hypertension Hyperlipidemia Paroxysmal atrial fibrillation status post left atrial appendage ligation as well as bilateral pulmonary vein ablation EtOH abuse with history of withdrawal Chronic tobacco dependence, History of COPD History of Anxiety/depression PLAN Continue aspirin, statin, Plavix, beta lurdes. Patient on amiodarone for A. fib prophylaxis Encourage incentive spirometry 10 times every hour while awake Increase activity, ambulate as tolerated We will continue to follow while inpatient, likely discharge today On discharge, patient to follow up with Dr. Savage Nurse Practitioner note has been reviewed, I agree with a documented findings, assessment and plan of care. Patient was seen and examined. Objective - Vital Signs Vital signs: Vital Signs Temp 98 F 04/19/21 04:00 Pulse 76 04/19/21 11:20 Resp 18 04/19/21 04:00 BP 136/90 04/19/21 04:00 Pulse Ox 100 04/19/21 04:00 Intake & Output 04/18/21 04/19/21 04/19/21 18:59 06:59 18:59 Intake Total 780 180 Output Total 200 950 Balance 580 -770 Weight 99.7 kg Intake: Oral 780 180 Output: Urine 200 950 Other: Voiding Method Urinal Urinal # Voids 1 ABP, PAP, CO, CI - Last Documented Arterial Blood Pressure 138/54 Pulmonary Artery Pressure 38/19 Cardiac Output 5.6 Cardiac Index 2.7 - Labs CBC & Chem 7: 04/19/21 08:01 04/19/21 08:01 Labs: Abnormal Lab Results - Last 24 Hours (Table) 04/18/21 04/18/21 04/19/21 Range/Units 16:30 20:16 02:12 RBC (4.30-5.90) m/uL Hgb (13.0-17.5) gm/dL Hct (39.0-53.0) % Glucose (74-99) mg/dL POC Glucose (mg/dL) 113 H 133 H 127 H (75-99) mg/dL 04/19/21 04/19/21 04/19/21 Range/Units 06:07 08:01 08:01 RBC 3.02 L (4.30-5.90) m/uL Hgb 9.4 L (13.0-17.5) gm/dL Hct 28.2 L (39.0-53.0) % Glucose 133 H (74-99) mg/dL POC Glucose (mg/dL) 151 H (75-99) mg/dL 04/19/21 Range/Units 11:10 RBC (4.30-5.90) m/uL Hgb (13.0-17.5) gm/dL Hct (39.0-53.0) % Glucose (74-99) mg/dL POC Glucose (mg/dL) 120 H (75-99) mg/dL
--- NOTE | 2021-04-19 15:49 | P.DS ---
Providers Date of admission: 04/14/21 05:33 Expected date of discharge: 04/19/21 Attending physician: Marcelo Espinoza Consults: 04/14/21 13:45 Consult Physician Routine Consulting Provider: Aiden Burgos Consult Reason/Comments: Software Qa System Specialist Consult: post cardiac surgery Do you want consulting provider notified?: Yes Consult Physician Routine Consulting Provider: Epifanio Lee Consult Reason/Comments: Equine Intern Consult: post cardiac surgery Do you want consulting provider notified?: Yes Consult Physician Routine Consulting Provider: Americo Carvalho Consult Reason/Comments: med mgmt; Maryan patient Do you want consulting provider notified?: Yes Primary care physician: Maryan Gomez [facility] Course: FINAL DIAGNOSIS: 1. Coronary artery disease, unstable angina 2. History of hypertension 3. Hyperlipidemia, treated, cholesterol 152, LDL 83 4. History of paroxysmal atrial fibrillation 5. EtOH abuse with history of withdrawal, last drink September 2020 6. Chronic tobacco dependence, quit smoking cigarettes, still vapes 7. COPD, preoperative FEV1 97% predicted 8. Anxiety/depression, follows with [facility] 9. Remote history of pneumonia 10. History of medical noncompliance 11. Family history of coronary artery disease 12. Vaccinated but not boosted against Covid. Positive covid in February 2021 13. Acute blood loss anemia and thrombocytopenia, expected PRINCIPAL PROCEDURE: 1. Off-pump coronary artery bypass grafting 4 with sequential left internal mammary artery to the diagonal and the left anterior descending coronary artery, left radial artery T graft off the AZUL to the obtuse marginal, reverse saphenous vein graft to the posterior descending artery 2. Endovascular vein harvest 3. Endo radial artery harvest 4. Bilateral pulmonary vein ablation 5. Occlusion of the left atrial appendage using a 35 mm AtriCure clip 6. Epi-aortic ultrasound 7. Intraoperative transesophageal echocardiogram performed by anesthesia HISTORY OF PRESENT ILLNESS: This is a 55-year-old gentleman who follows on an outpatient basis with Dr. Steinberg for primary care and Dr. Savage for cardiology. The patient was referred to Dr. Espinoza from cardiothoracic surgery approximately 1 year ago for coronary artery disease. At that time he was found to have about a 50% left main coronary stenosis. He had multiple admissions to the hospital with chest pain associated with alcohol abuse and had not been on medical management at that time. Discussion was had with cardiology and he was felt not to have critical stenosis, it was felt best to treat him with medical management. He was advised to quit smoking as well as quit drinking. Eventually he quit drinking, quit smoking although continue to vape and maintained compliance with his medications. Unfortunately he developed fatigue and exertional dyspnea. Repeat cardiac catheterization was performed demonstrating worsening of his triple-vessel coronary artery disease. He was again referred to Dr. Espinoza and was felt to be a better candidate for surgery and was recommended to undergo surgical myocardial revascularization. The usual perioperative course was discussed in detail with the patient, all risks and benefits were explained, all questions were answered, and consent was obtained to proceed with surgery. The patient was scheduled for surgery at the earliest possible date. HOSPITAL COURSE: The patient was brought to the hospital on 04/14/21, taken to the preoperative area, prepared in the usual fashion, and subsequently taken to the operating room where Dr. Espinoza performed four-vessel off-pump CABG. Upon completion of surgery the patient was transferred to the cardiovascular intensive care unit where he was recovered and monitored hemodynamically. He was extubated, all lines, tubes, and drips were discontinued when appropriate, and he was transferred to 3 S. cardiac stepdown unit for further monitoring and rehabilitation. His oxygen was titrated down, he continued to work with physical and occupational therapy, he was tolerating oral diet, his pain was controlled, and he was ready to be discharged to home with [facility] on postoperative day #5. He received written and verbal instruction regarding his medications, activity restrictions, signs and symptoms requiring physician notification, and follow-up appointments. Patient Condition at Discharge: Stable Plan - Discharge Summary Discharge Rx Participant: No New Discharge Prescriptions: New Metoprolol Tartrate [Lopressor] 25 mg PO BID #60 tab Sennosides-Docusate Sodium [Senokot-S] 2 each PO HS PRN tab PRN Reason: Constipation Amiodarone [Cordarone] 400 mg PO BID 14 Days #28 tab Clopidogrel [Plavix] 75 mg PO DAILY #30 tab Pantoprazole [Protonix] 40 mg PO AC-BRKFST #30 tab oxyCODONE-APAP 10-325MG [Percocet 10-325 mg] 1 tab PO Q6HR PRN 7 Days #28 tab PRN Reason: Pain Continue Aspirin 81 mg PO DAILY #30 chew Vitamin B Complex 1 tab PO DAILY Multivitamins, Thera [Multivitamin (formulary)] 1 tab PO DAILY Rosuvastatin Calcium [Crestor] 5 mg PO HS amLODIPine BESYLATE 5 mg PO QAM Discontinued Isosorbide Mononitrate ER [Imdur] 60 mg PO DAILY 30 Days #30 tab.er.24h Metoprolol Tartrate [Lopressor] 50 mg PO BID #60 tab Ibuprofen [Motrin] 800 mg PO Q8H PRN PRN Reason: Pain lisinopriL [Zestril] 30 mg PO HS Omeprazole 40 mg PO DAILY Ranolazine [Ranexa] 1,000 mg PO Q12H oxyCODONE-APAP 10-325MG [Percocet 10-325 mg] 1 tab PO Q8HR PRN PRN Reason: Pain Nitroglycerin Sl Tabs [Nitrostat] 0.4 mg SUBLINGUAL Q5M PRN #25 tab PRN Reason: Chest Pain Discharge Medication List Aspirin 81 mg PO DAILY #30 chew 08/10/20 [Rx] Vitamin B Complex 1 tab PO DAILY 02/25/21 [History] Multivitamins, Thera [Multivitamin (formulary)] 1 tab PO DAILY 04/07/21 [History] Rosuvastatin Calcium [Crestor] 5 mg PO HS 04/07/21 [History] amLODIPine BESYLATE 5 mg PO QAM 04/07/21 [History] Amiodarone [Cordarone] 400 mg PO BID 14 Days #28 tab 04/19/21 [Rx] Clopidogrel [Plavix] 75 mg PO DAILY #30 tab 04/19/21 [Rx] Metoprolol Tartrate [Lopressor] 25 mg PO BID #60 tab 04/19/21 [Rx] Pantoprazole [Protonix] 40 mg PO AC-BRKFST #30 tab 04/19/21 [Rx] Sennosides-Docusate Sodium [Senokot-S] 2 each PO HS PRN tab 04/19/21 [Rx] oxyCODONE-APAP 10-325MG [Percocet 10-325 mg] 1 tab PO Q6HR PRN 7 Days #28 tab 04/19/21 [Rx] Follow up Appointment(s)/Referral(s): Elizabeth Edmondson, FILIPPO [Nurse Practitioner] - 04/25/21 12:00 pm (You will be seen in the surgeon's office behind the hospital in [facility], [address] Office phone number is ) Jaret Naqvi MD [REFERRING] - As Needed (Follow with your pain doctor for continued Percocet management) Rehab Brock ENCARNACION,Cardiac [NON-STAFF] - 4 Weeks (You will be called in 4-6 weeks for evaluation for cardiac rehab) Marybel Steinberg MD [Primary Care Provider] - 04/25/21 11:00 am [facility],[place] [NON-STAFF] - (Call to see if you can get Meals on Wheels set up.) [facility] [REFERRING] - (Call to see if they can set up chores services for you through your insurance.) Sal Savage MD [STAFF PHYSICIAN] - 05/03/21 3:00 pm (At the [employer] office (inside [facility])) Rossy Mcnulty NPC [Nurse Practitioner] - 05/16/21 2:30 pm Marcelo Espinoza MD [STAFF PHYSICIAN] - 05/12/21 1:00 pm [facility] Visiting Nurse, [NON-STAFF] - Ambulatory/Diagnostic Orders: Complete Blood Count w/diff [LAB.AMB] Time Frame: 3 Days, Location: None Selected Comprehensive Metabolic Panel [LAB.AMB] Time Frame: 3 Days, Location: None Selected Activity/Diet/Wound Care/Special Instructions: DISCHARGE INSTRUCTIONS: 1. No driving for 4 weeks, or until physician gives their ok. 2. The patient should sleep in their own bed, no medical bed needed. 3. Stairs are not an issue. If the bedroom is upstairs, it is advised that the patient go up at night and down in the morning for the first week. Go slowly, using handrail and take 1 step at a time. 4. YULIYA hose are to be worn for 30 days or until physician discontinues. 5. Heart hugger is to be worn 100% of the time until physician discont inues.(except when showering) 6. No lifting, pushing, or pulling more than 10 pounds for 12 weeks. The physician will advise of any restriction changes. 7. The patient is expected to continue the prescribed walking program. 8. Continue pain control per as needed orders. 9. Continue with incentive spirometry and splinting/heart hugger until otherwise directed by the physician. 10. Must shower daily using liquid antibacterial soap and a separate white washcloth for each individual incision. 11. Routine sternal incision care. No powders, lotions, ointments on incisions. No dressings are necessary on incisions unless they are draining. Dermabond tape is to remain on sternal incision until surgeon follow-up. 12. Please call surgeon/GLUE MACHINE OPERATOR for temp greater than 101 F or purulent drainage from incisions. 13. Narcotic medications were discussed with the patient, including the potential for misuse, addiction, and abuse. Opiod Start Talking form was reviewed with the patient. 14. All prescriptions given by surgeon for 30 days. Refills need to be filled through dispatcher chief oil/primary care physician. 15. A Red armband has been placed on the patient. It should be worn for 30 days post surgery and will be removed by the cardiac surgeons. If an ER visit is necessary, please make sure the number on the Red armband is called. 16. You have been referred to and are expected to begin Cardiac Rehab in approximately 4-6 weeks. HOME HEALTH SERVICES TO PROVIDE: RN SKILLED HOME CARE SERVICES FOR POST-OP SURGICAL PATIENTS WITH THE FOLLOWING: Coronary Artery Bypass Surgery (CABG), Mitral Valve Replacement/Repair ( MVR), Aortic Valve Replacement/Repair (AVR) RN TO CONTINUE EDUCATION FROM ``ROAD TO A HEALTH HEART PATIENT EDUCATION MANUAL (GIVEN TO PATIENT IN THE HOSPITAL) MEDICATION RECONCILIATION WITH EDUCATION NEEDED ON FIRST HOME VISIT EMPHASIZE IMPORTANCE OF WEARING BREAST SUPPORT/HEART HUGGER ENCOURAGE USE OF INCENTIVE SPIROMETER 10 X EVERY HOUR WHILE AWAKE ENCOURAGE UTILIZATION OF LOWER EXTREMITY COMPRESSION STOCKINGS/YULIYA HOSE and ELEVATE LEGS ABOVE LEVEL OF HEART WHILE AT REST. ENCOURAGE AMBULATION 3-5x/day INCREASING TOLERATES, WHILE AVOIDING EXTREMES IN TEMPERATURE FREQUENCY: RN TO OPEN THE PATIENT WITHIN 24 HOURS OF DISCHARGE FROM THE HOSPITAL WITH TELEHEALTH INSTALLED AT [facility], RN TO VISIT 2-3 X A WEEK FOR 4 WEEKS ESTABLISHED BY PATIENT NEEDS. LABORATORY: CBC, CMP TO BE DRAWN ON THE THIRD DAY HOME, (RAN STAT) FAX RESULTS TO [phone]. TELEHEALTH PARAMETERS: WEIGHT: NOTIFY MD OF WEIGHT GAIN OF 2 LBS IN 24 HOURS OR 5 LBS IN ONE WEEK HR: NOTIFY MD OF HR <55 BPM OR HR>100 BPM BP: NOTIFY MD IF BP <90/55 OR BP>140/100 O2 SAT: NOTIFY MD IF PO2<93% ON ROOM AIR SEND TELEHEALTH REPORT TO HULL BUILDER AND CARDIOVASCULAR SURGEON THE FIRST WEEK OF CARE AND THEN BI-WEEKLY. PLEASE ADDITIONALLY COMMUNICATE ANY ABNORMALS AND NEW FINDINGS TO THE SURGEONS OFFICE. Discharge/Stand Alone Forms: Who Do I Call? Discharge Disposition: HOME WITH HOME HEALTH SERVICES
[2021-04-19 16:36] VITALS: BP 146/83; PULSE 76; RESP 20; TEMP 97.2
== END 2021-04-19 14:38 | disposition home health service (06) | DRG 236 ==
LOC: 2ORMAIN 05:33 → 2SICU 13:39 → 3SCARD 04-17 18:29
PROVIDERS: ADMIT Thoracic Surgery (Cardiothoracic Vascular Surgery); ATTEND Thoracic Surgery (Cardiothoracic Vascular Surgery)
PROC: 021009W Bypass Coronary Artery, One Artery from Aorta with Autologous Venous Tissue, Open Approach (ICD-10-PCS; principal; 2021-04-14 08:00)
PROC: 05BA4ZZ Excision of Left Brachial Vein, Percutaneous Endoscopic Approach (ICD-10-PCS; principal; 2021-04-14 08:00)
PROC: B24BZZ4 Ultrasonography of Heart with Aorta, Transesophageal (ICD-10-PCS; principal; 2021-04-14 08:00)
PROC: 06BQ4ZZ Excision of Left Saphenous Vein, Percutaneous Endoscopic Approach (ICD-10-PCS; principal; 2021-04-14 08:00)
PROC: 025 Heart and Great Vessels, Destruction (ICD-10-PCS; principal; 2021-04-14 08:00)
PROC: 02L70CK Occlusion of Left Atrial Appendage with Extraluminal Device, Open Approach (ICD-10-PCS; principal; 2021-04-14 08:00)
PROC: 02110Z9 Bypass Coronary Artery, Two Arteries from Left Internal Mammary, Open Approach (ICD-10-PCS; principal; 2021-04-14 08:00)
PROC: 02100AW Bypass Coronary Artery, One Artery from Aorta with Autologous Arterial Tissue, Open Approach (ICD-10-PCS; principal; 2021-04-14 08:00)
PROC: 025T3ZZ Destruction of Left Pulmonary Vein, Percutaneous Approach (ICD-10-PCS; principal; 2021-04-14 08:00)
DX: I25.110 Atherosclerotic heart disease of native coronary artery with unstable angina pectoris (principal); D62 Acute posthemorrhagic anemia; I10 Essential (primary) hypertension; E78.5 Hyperlipidemia, unspecified; I48.0 Paroxysmal atrial fibrillation; F10.10 Alcohol abuse, uncomplicated; J44.9 Chronic obstructive pulmonary disease, unspecified; F41.9 Anxiety disorder, unspecified; D69.6 Thrombocytopenia, unspecified; F32.A Depression, unspecified; Z91.14 Patient's other noncompliance with medication regimen; Z79.82 Long term (current) use of aspirin; Z79.899 Other long term (current) drug therapy; F17.290 Nicotine dependence, other tobacco product, uncomplicated; G89.29 Other chronic pain; Z98.890 Other specified postprocedural states; Z86.16 Personal history of COVID-19; Z87.01 Personal history of pneumonia (recurrent); Z91.19 Patient's noncompliance with other medical treatment and regimen; Z82.49 Family history of ischemic heart disease and other diseases of the circulatory system; Z80.41 Family history of malignant neoplasm of ovary
CPT/HCPCS: 71045; 71046; 80048; 80053; 82330; 82805; 83735; 85025; 85027; 85520; 85610; 85730; 86850; 86891; 86900; 86901; 86920; 94002; 94640

== ENCOUNTER 2021-05-20 19:34 | Inpatient (IN) | payer OTHER ==
[2021-05-20 20:08] LABS: Basophils # (A) 0.1 k/uL (0-0.2); Basophils % (A) 0 %; Eosinophils # (A) 0.5 k/uL (0-0.7); Eosinophils % (A) 3 %; HCT 41.1 % (39.0-53.0); HGB 13.1 gm/dL (13.0-17.5); Lymphocytes # (A) 1.8 k/uL (1.0-4.8); Lymphocytes % (A) 10 %; MCH 28.8 pg (25.0-35.0); MCHC 31.9 g/dL (31.0-37.0); MCV 90.3 fL (80.0-100.0); Mean Platelet Volume 7.4; Monocytes # (A) 0.6 k/uL (0-1.0); Monocytes % (A) 3 %; Neutrophils # (A) 15.5 k/uL (1.3-7.7); Neutrophils % (A) 84 %; Platelet Count 309 k/uL (150-450); RBC 4.55 m/uL (4.30-5.90); RDW 13.2 % (11.5-15.5); WBC 18.6 k/uL (3.8-10.6)
[2021-05-20 20:24] LABS: Albumin 5.1 g/dL (3.5-5.0); Calcium 9.6 mg/dL (8.4-10.2); Total Bilirubin 0.7 mg/dL (0.2-1.3); Total Protein 8.2 g/dL (6.3-8.2)
--- NOTE | 2021-05-20 20:43 | US ---
EXAMINATION TYPE: US abdomen limited DATE OF EXAM: 05/20/2021 COMPARISON: NONE CLINICAL HISTORY: right upper quadrant. RUQ pain; patient had open heart surgery 1 month ago. EXAM MEASUREMENTS: Liver Length: 15.9 cm Gallbladder Wall: 0.26 cm CBD: 0.69 cm Right Kidney: 10.6 x 5.3 x 5.3 cm Pancreas: Obscured by bowel gas Liver: Increased echogenicity to the liver parenchyma. No focal mass or cystic structure present. Gallbladder: Appears wnl Evidence for sonographic Cazares's sign: no CBD: wnl Right Kidney: No hydronephrosis or masses seen Difficult exam due to patient intolerance IMPRESSION: 1. Limited exam without evidence of acute intracranial process. 2. Hepatocellular disease, including hepatic steatosis.
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
[2021-05-20] MEDS ORDERED: ONDANSETRON 4 MG/2 ML VIAL IVP STA (22:32)
[2021-05-20] MEDS ORDERED: SODIUM CHLORIDE 0.9% 1,000 ML IV STA (22:32)
--- NOTE | 2021-05-20 22:38 | XR ---
EXAMINATION TYPE: XR chest 1V portable DATE OF EXAM: 05/20/2021 COMPARISON: 04/19/2021 HISTORY: Cough TECHNIQUE: FINDINGS: There is no heart failure nor confluent pneumonic infiltrate. There are sternal wires. Cost ophrenic angles are clear. There are chest leads. Mediastinum is normal. There are no hilar masses. IMPRESSION: No active cardiopulmonary disease. There is clearing of the pleural fluid and mild atelec tasis compared to old exam.
[2021-05-20] MEDS: HYDROmorphone 1 MG/ML 1 ML SYRINGE IVP STA (23:11)
--- NOTE | 2021-05-21 00:23 | CT ---
EXAMINATION TYPE: CT angio chest DATE OF EXAM: 05/21/2021 COMPARISON: 08/02/2020 HISTORY: chest pain CT DLP: 526.4 mGycm Automated exposure control for dose reduction was used. CONTRAST: Performed with IV Contrast, patient injected with 100 mL of Isovue 370. Images obtained from the thoracic inlet to the diaphragm with IV contrast. There are Three-D postprocessed images. There is minimal subsegmental atelectasis at the lung bases. No evidence of a pulmonary mass. No pleu ral effusion. There is no pericardial effusion. There are no hilar masses. There is no mediastinal ad enopathy. Thoracic aorta is intact. No aneurysm or dissection. There are sternal wires. There is no evidence of filling defect in the pulmonary arteries. The thoracic spine is intact. No significant compression deformity. IMPRESSION: No evidence of pulmonary embolism. No suspicious pulmonary mass. No adverse change compared to old ex am.
--- NOTE | 2021-05-21 00:32 | CT ---
EXAMINATION TYPE: CT abdomen pelvis w con DATE OF EXAM: 05/21/2021 COMPARISON: None HISTORY: pain CT DLP: 1548.3 mGycm Automated exposure control for dose reduction was used. CONTRAST: Performed with IV Contrast, patient injected with 100 mL of Isovue 370. Images obtained from the diaphragm to the floor the pelvis with IV contrast. There is some mild subsegmental atelectasis at the lung bases. Heart size is normal. No pericardial e ffusion. No pleural effusion. Liver spleen and stomach pancreas gallbladder appear normal. The bile duct are not dilated. There is no adrenal mass. Kidneys show satisfactory contrast opacification. There is no hydronephrosi s. There is 1.5 cm cortical cyst anterior right kidney. Ureters are not dilated. There is no retroper itoneal adenopathy. Bladder distends smoothly. There is no inguinal hernia. No evidence of a pelvic m ass. There is dilated fluid-filled appendix with surrounding mild fat stranding. Appendix measures up to 1 5 mm. The lumbar vertebrae have normal alignment. There is calcification in the L5-S1 disc. There is no lum bar compression fracture. Posterior elements appear intact. The bony pelvis appears intact. The termi nal ileum appears normal. There is no free air. No ascites. No bowel obstruction. IMPRESSION: Dilated fluid-filled appendix with inflammatory changes related to appendicitis. There is tiny amount of fluid in the gutter and appendiceal rupture is possible.
[2021-05-21] MEDS ORDERED: AMPICILLIN-SULBACTAM 3 GM in SODIUM CHLORIDE 0.9% 100 ML IVPB STA (00:40)
[2021-05-21] MEDS ORDERED: LORazepam 2 MG/ML INJ IV PRN (00:40)
[2021-05-21] MEDS ORDERED: NALOXONE 0.4 MG/ML 1 ML VIAL IV PRN (00:40)
[2021-05-21] MEDS ORDERED: ONDANSETRON 4 MG/2 ML VIAL IVP PRN (00:40)
[2021-05-21 01:04] LABS: Appearance,Urine Clear (Clear); Bilirubin,Urine Negative (Negative); Blood,Urine Negative (Negative); Color,Urine Yellow; Glucose,Urine (UA) Negative (Negative); Ketones,Urine 1+ (Negative); Leukocyte Esterase,Urine Negative (Negative); Mucus,Urine Rare /hpf; Nitrite,Urine Negative (Negative); PH, Urine 5.5 (5.0-8.0); Protein,Urine 1+ (Negative); RBC,Urine 1 /hpf (0-5); Specific Gravity,Urine 1.025 (1.001-1.035); Urobilinogen,Urine <2.0 mg/dL (<2.0)
[2021-05-21] MEDS: HYDROmorphone 1 MG/ML 1 ML SYRINGE IVP STA (01:09)
[2021-05-21] MEDS: SODIUM CHLORIDE 0.9% 1,000 ML IV SCH ×2 (01:11→09:32)
[2021-05-21] MEDS: HYDROmorphone 1 MG/ML 1 ML SYRINGE IVP PRN ×5 (04:21→21:30)
[2021-05-21] MEDS: PANTOPRAZOLE 40 MG/10 ML VIAL IV SCH (07:22)
[2021-05-21] MEDS: AMPICILLIN-SULBACTAM 3 GM in SODIUM CHLORIDE 0.9% 100 ML IVPB SCH ×3 (07:23→20:44)
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
[2021-05-21] MEDS: METOPROLOL TARTRATE 25 MG TAB PO SCH ×2 (10:00→20:45)
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
[2021-05-21] MEDS ORDERED: fentaNYL (PF) 50 MCG/ML 2 ML AMP IVP ONE (10:43)
[2021-05-21] MEDS ORDERED: IV FLUID CONTINUATION 1,000 ML IV ONE (11:25)
[2021-05-21] MEDS ORDERED: BUPIVACAIN-EPI 0.25%-1:200,000 30 ML VIAL SQ ONE ×2 (11:47)
[2021-05-21] MEDS ORDERED: LACTATED RINGERS 1,000 ML IV ONE (12:24)
--- NOTE | 2021-05-21 12:32 | P.OP ---
Date of Procedure: 05/21/21 Preoperative Diagnosis: Acute appendicitis Postoperative Diagnosis: Acute ruptured appendicitis Procedure(s) Performed: Laparoscopic appendectomy Anesthesia: MOISE Surgeon: Marcie Saldivar Pathology: other (Appendix) Condition: stable Disposition: floor Indications for Procedure: 54-year-old male presented to the emergency department with complaints of abdominal pain. On workup, he was found to have acute appendicitis with possible ruptured. He is noted to have recent CABG and is on Plavix with anti coagulation. He was evaluated by cardiology before the procedure. He states he is not compliant with his cardiac medications and it is possible that he has not had Plavix for greater than 48 hours. Patient is a poor historian and is unclear. Patient was excellent the significant risk of bleeding secondary to anticoagulation, however based on meeting criteria for SIRS and sepsis, patient would significantly benefit from appendectomy. The risks, benefits and alternatives were provided. He did provide consent along with his father. Operative Findings: Ruptured appendicitis Description of Procedure: The patient was brought to the operating suite and placed in supine position on the operating table. Sedation was provided by anesthesia and the patient underwent endotracheal intubation. He was then prepped and draped in regular sterile fashion. A super umbilical incision was made and dissection was carried to the fascia and the fascia was incised. A 12 mm trocar was placed. Pneumoperitoneum was achieved. The patient was then positioned appropriately and the cecum was visualized. 2 additional 5 mm ports were placed. One was placed in the suprapubic region and the other in the left lower quadrant. Adherent omentum and small bowel were noted in the right lower quadrant to the cecum. This was gently and bluntly peeled away. Exudative changes were noted. The appendix was then clearly visualized and was noted to have what appeared to be a mild rupture. During dissection, it was clear that the appendix had ruptured into 2 pieces. Dissection was further carried to elucidate the appendiceal base. A window was recreated between the appendix and the mesoappendix. LigaSure was used to dissect the mesoappendix from the appendix. A stapler was then fired across the base of the appendix. Both pieces of the appendix was then placed in an Endo Catch bag and removed from the abdomen. Copious muss irrigation was placed in the right lower quadrant. There is no evidence of any additional bleeding. Further exam revealed no obvious sign of any further pieces of the appendix. ALFREDO drain was placed in the right lower quadrant and sutured to the suprapubic 5 mm incision site. The fascial incision at the super umbilical site was then closed under direct visualization using an 0 Vicryl and a Morgan Velez device. All wounds were then closed with 4-0 Vicryl subcuticular suture after pneumoperitoneum was released. Sterile dressing was applied. The patient was awakened in the operating suite and taken to postanesthesia care unit in stable condition.
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
[2021-05-21] MEDS ORDERED: HYDROmorphone 0.5 MG/0.5 ML SYRINGE IVP ONE ×2 (12:40→13:02)
[2021-05-21] MEDS ORDERED: MEPERIDINE 50 MG/ML SYRINGE IVP ONE (13:18)
[2021-05-21] MEDS: PREGABALIN 100 MG CAP PO SCH ×2 (13:35→20:44)
[2021-05-21] MEDS: ASPIRIN 81 MG PO SCH (13:35)
[2021-05-21] MEDS ORDERED: NEOSTIGMINE 1 MG/ML 10 ML VIAL ONE (14:30)
[2021-05-21] MEDS ORDERED: fentaNYL (PF) 50 MCG/ML 2 ML AMP ONE (14:30)
[2021-05-21] MEDS ORDERED: LIDOCAINE 1% INJ 10MG/ML (20 ML MDV) ONE (14:30)
[2021-05-21] MEDS ORDERED: PROPOFOL 10 MG/ML 20 ML VIAL IV ONE (14:30)
[2021-05-21] MEDS ORDERED: SUCCINYLCHOLINE CHLORIDE 100 MG/5 ML SYR IV ONE (14:30)
[2021-05-21] MEDS ORDERED: HYDROmorphone (PF) 1 MG/ML ONE (14:30)
[2021-05-21] MEDS ORDERED: MIDAZOLAM 2 MG/2 ML VIAL ONE (14:30)
[2021-05-21] MEDS ORDERED: ROCURONIUM 10 MG/ML (5 ML VIAL) IV ONE (14:30)
[2021-05-21] MEDS ORDERED: GLYCOPYRROLATE 0.2 MG/ML 2 ML VIAL ONE (14:30)
[2021-05-21] MEDS: LACTATED RINGERS 1,000 ML IV SCH ×2 (14:53→20:45)
[2021-05-21] MEDS: amLODIPine 5 MG TAB PO SCH (15:09)
[2021-05-21] MEDS: AMIODARONE 200 MG TAB PO SCH (15:09)
[2021-05-21] MEDS: oxyCODONE-APAP 10-325MG 1 EACH TAB PO PRN ×2 (16:48→23:21)
[2021-05-21] MEDS: HEPARIN SODIUM,PORCINE/PF 5,000 UNIT/0.5 ML SYRINGE SQ SCH ×2 (16:48→23:21)
[2021-05-21] MEDS: ATORVASTATIN 10 MG TAB PO SCH (20:45)
[2021-05-22] MEDS: HYDROmorphone 1 MG/ML 1 ML SYRINGE IVP PRN ×5 (02:25→18:55)
[2021-05-22] MEDS: LACTATED RINGERS 1,000 ML IV SCH ×2 (02:25→16:20)
[2021-05-22] MEDS: AMPICILLIN-SULBACTAM 3 GM in SODIUM CHLORIDE 0.9% 100 ML IVPB SCH ×4 (02:26→20:03)
[2021-05-22] MEDS: HEPARIN SODIUM,PORCINE/PF 5,000 UNIT/0.5 ML SYRINGE SQ SCH ×3 (07:58→20:04)
[2021-05-22] MEDS: PREGABALIN 100 MG CAP PO SCH ×2 (07:58→20:04)
[2021-05-22] MEDS: PANTOPRAZOLE 40 MG/10 ML VIAL IV SCH (07:58)
[2021-05-22] MEDS: oxyCODONE-APAP 10-325MG 1 EACH TAB PO PRN ×3 (07:59→23:03)
[2021-05-22] MEDS: ASPIRIN 81 MG PO SCH (07:59)
[2021-05-22] MEDS: METOPROLOL TARTRATE 25 MG TAB PO SCH ×2 (07:59→20:04)
[2021-05-22] MEDS: amLODIPine 5 MG TAB PO SCH (07:59)
[2021-05-22] MEDS: AMIODARONE 200 MG TAB PO SCH (07:59)
[2021-05-22 08:34] LABS: Appearance,Urine Clear (Clear); Bacteria,Urine Occasional /hpf; Bilirubin,Urine Negative (Negative); Blood,Urine Negative (Negative); Color,Urine Yellow; Glucose,Urine (UA) Negative (Negative); Hyaline Casts,Urine 64 /lpf (0-2); Ketones,Urine Trace (Negative); Leukocyte Esterase,Urine Negative (Negative); Mucus,Urine Occasional /hpf; Nitrite,Urine Negative (Negative); PH, Urine 5.5 (5.0-8.0); Protein,Urine 1+ (Negative); RBC,Urine 2 /hpf (0-5); Specific Gravity,Urine 1.033 (1.001-1.035); Squamous Epithelial Cell,Urine <1 /hpf (0-4); WBC,Urine 8 /hpf (0-5)
--- NOTE | 2021-05-22 10:39 | P.PN ---
Subjective Progress Note Date: 05/22/21 Patient seen and examined at bedside. States he is still having abdominal pain. ALFREDO drain in place with serosanguineous output. Denies nausea or vomiting. States he is hungry and is requesting advancement of diet. Pacing the room. Objective - Vital Signs Vital signs: Vital Signs Temp 97.6 F 05/22/21 07:52 Pulse 59 L 05/22/21 07:52 Resp 14 05/22/21 07:52 BP 127/74 05/22/21 07:52 Pulse Ox 96 05/22/21 07:52 Intake & Output 05/21/21 05/22/21 05/22/21 18:59 06:59 18:59 Intake Total 700 Output Total 250 35 Balance 450 -35 Intake: IV 700 Output: Drainage 40 35 Lower Anterior Abdomen 40 35 Urine 200 Estimated Blood Loss 10 Other: Voiding Method Toilet # Voids 1 1 - Constitutional General appearance: Present: disheveled, no acute distress - Gastrointestinal Gastrointestinal Comment(s): Soft, overall nontender to palpation, appropriate tenderness at incision sites, and no rebound or guarding, ALFREDO drain in place with serosanguineous output - Psychiatric Psychiatric: Present: A&O x's 3 - Labs CBC & Chem 7: 05/20/21 19:47 05/20/21 19:47 Labs: Abnormal Lab Results - Last 24 Hours (Table) 05/22/21 Range/Units 08:10 Urine Protein 1+ H (Negative) Urine Ketones Trace H (Negative) Urine WBC 8 H (0-5) /hpf Urine Bacteria Occasional H (None) /hpf Hyaline Casts 64 H (0-2) /lpf Urine Mucus Occasional H (None) /hpf Assessment and Plan Plan: Postoperative day #1, laparoscopic appendectomy. Patient appears to be improving. We will advance to full liquid diet. Continue ALFREDO drain. Continue cardiology and internal medicine recommendations based on patient's recent history of CABG and requirement for anticoagulation. I would recommend holding anticoagulation for another day secondary to postop status. We will begin to treat patient's pain concerns with Toradol along with opiates. Progressing slowly.
[2021-05-22] MEDS: TAMSULOSIN 0.4 MG CAP.ER.24H PO SCH (10:45)
[2021-05-22] MEDS ORDERED: PHENAZOPYRIDINE 100 MG TAB PO STA (10:49)
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
[2021-05-22 11:35] LABS: Basophils # (A) 0.06 X 10*3/uL (0.00-0.10); Basophils % (A) 0.4 %; Eosinophils # (A) 0.08 X 10*3/uL (0.04-0.35); Eosinophils % (A) 0.6 %; HCT 34.6 % (39.6-50.0); HGB 10.7 g/dL (13.0-17.0); Immature Grans, Automated 0.5 %; Lymphocytes # (A) 1.94 X 10*3/uL (0.90-5.00); Lymphocytes % (A) 14.2 %; MCH 28.4 pg (27.0-32.0); MCHC 30.9 g/dL (32.0-37.0); MCV 91.8 fL (80.0-97.0); Mean Platelet Volume 10.2 fL (9.5-12.2); Monocytes # (A) 0.91 X 10*3/uL (0.20-1.00); Monocytes % (A) 6.7 %; NRBC Per 100 WBC 0 /100 WBCS (0.0-0.0); Neutrophils # (A) 10.61 X 10*3/uL (1.80-7.70); Neutrophils % (A) 77.6 %; Platelet Count 253 X 10*3/uL (140-440); RBC 3.77 X 10*6/uL (4.40-5.60); RDW 13.3 % (11.5-14.5); WBC 13.67 X 10*3/uL (4.50-10.00)
[2021-05-22 11:43] LABS: Anion Gap 12.1 mmol/L (10.00-18.00); BUN/Creat Ratio 13.19 Ratio (12.00-20.00); Blood Urea Nitrogen 17.8 mg/dL (9.0-27.0); Calcium 9.7 mg/dL (8.7-10.3); Carbon Dioxide 25.1 mmol/L (20.0-27.5); Non-African American GFR(CKD) 59.5 (60.0-200.0); Potassium 4.1 mmol/L (3.5-5.5)
--- NOTE | 2021-05-22 13:14 | P.PN ---
Subjective Progress Note Date: 05/22/21 History of present illness: This is a 55-year-old male patient of Dr. Savage with past medical history of co ronary artery disease with recent 4 vessel CABG on 04/[address] Espinoza, history of hypertension, hyperlipidemia, paroxysmal atrial fibrillation status post left atrial appendage ligation and bilateral pulmonary vein ablation, history of alcohol abuse and chronic tobacco use, COPD. Patient states that he had follow- up appointment with Dr. Savage on 05/03 with no medication changes at that time but unfortunately he ran out of all of his medications 2 days ago and has not taken any medications since . He developed abdominal pain on the right side starting yesterday afternoon as well as nausea and vomiting Regarding smoking, patient states that he stopped smoking one half months ago but is babying and trying to cut back. His last alcohol intake was in September 2020. He also has history of Covid infection in February 2021. EKG sinus rhythm CTA was normal with no pulmonary embolism Chest x-ray showed normal findings WBC 18.6 otherwise CBC is unremarkable. Electrolytes and renal function normal. Liver function tests normal. Troponin negative on one drop. Lipase 52. CAT scan of the abdomen and pelvis revealed dilated fluid-filled appendix with inflammatory changes related to appendicitis. Dr. Saldivar is planning for surgical intervention this afternoon. 05/22/2021 Patient continues to deny having any chest pain. He states he has a little shortness of breath sometimes. He has been afebrile, heart rate in the 50s to 70s, blood pressure 127/74. WBC 13.6, hemoglobin 10.7. Electrolytes and renal function normal. He underwent laparoscopic appendectomy yesterday and he states his abdominal pain is just as bad as when he came in although patient is able to ambulate in the hallway. Plavix is on hold until cleared by general surgery to resume but otherwise patient is on all his home cardiac medications. Prescriptions will be sent to his pharmacy for all his cardiac medications since he ran out on . Physical examination: Gen: This is a 55-year-old male. He is resting but appears to be uncomfortable secondary to abdominal pain HEENT: Head is atraumatic, normocephalic. Pupils equal, round. Sclerae is anicteric. NECK: Supple. No JVD. No lymphadenopathy. No thyromegaly. LUNGS: Clear to auscultation. No wheezes or rhonchi. No intercostal retrac tions. HEART: Regular rate and rhythm. No murmur. Anterior chest wall incision site is clean, no open areas, no edema, drainage, erythema. ABDOMEN: Soft. Bowel sounds are present. No masses. + Pain and tenderness. EXTREMITIES: No pedal edema. No calf tenderness. NEUROLOGICAL: Patient is awake, alert and oriented x3. Cranial nerves 2 through 12 are grossly intact. Assessment: Acute ruptured Appendicitis status post laparoscopic appendectomy 05/21 Coronary artery disease with recent CABG four-vessel 04/[address] Espinoza Noncompliant with medication Hypertension Hyperlipidemia Paroxysmal atrial fibrillation history Plan: Continue patient's home cardiac medications Resume Plavix once cleared by general surgery Patient's prescriptions have been sent to his pharmacy to be picked up at the time of discharge Patient is cleared from cardiology for discharge, follow up with Dr. Savage in a week. Nurse practitioner note has been reviewed, I agree with documented findings and plan of care. Patient was seen and examined. Objective - Vital Signs Vital signs: Vital Signs Temp 97.6 F 05/22/21 07:52 Pulse 59 L 05/22/21 07:52 Resp 14 05/22/21 07:52 BP 127/74 05/22/21 07:52 Pulse Ox 96 05/22/21 07:52 Intake & Output 05/21/21 05/22/21 05/22/21 18:59 06:59 18:59 Intake Total 700 Output Total 250 35 Balance 450 -35 Intake: IV 700 Output: Drainage 40 35 Lower Anterior Abdomen 40 35 Urine 200 Estimated Blood Loss 10 Other: Voiding Method Toilet # Voids 1 1 - Labs CBC & Chem 7: 05/22/21 06:34 05/22/21 06:34
[2021-05-22] MEDS: KETOROLAC 15 MG/ML 1 ML VIAL IVP SCH ×3 (13:24→23:04)
[2021-05-22] MEDS: ATORVASTATIN 10 MG TAB PO SCH (20:04)
[2021-05-23] MEDS: AMPICILLIN-SULBACTAM 3 GM in SODIUM CHLORIDE 0.9% 100 ML IVPB SCH ×4 (00:20→20:09)
[2021-05-23] MEDS: HYDROmorphone 1 MG/ML 1 ML SYRINGE IVP PRN (02:53)
[2021-05-23] MEDS: LACTATED RINGERS 1,000 ML IV SCH ×2 (04:39→14:32)
[2021-05-23] MEDS: KETOROLAC 15 MG/ML 1 ML VIAL IVP SCH ×3 (05:34→20:06)
[2021-05-23] MEDS: oxyCODONE-APAP 10-325MG 1 EACH TAB PO PRN ×3 (05:36→16:13)
[2021-05-23] MEDS: HEPARIN SODIUM,PORCINE/PF 5,000 UNIT/0.5 ML SYRINGE SQ SCH ×2 (08:12→16:14)
[2021-05-23] MEDS: ASPIRIN 81 MG PO SCH (08:12)
[2021-05-23] MEDS: METOPROLOL TARTRATE 25 MG TAB PO SCH ×2 (08:12→20:08)
[2021-05-23] MEDS: amLODIPine 5 MG TAB PO SCH (08:12)
[2021-05-23] MEDS: AMIODARONE 200 MG TAB PO SCH (08:12)
[2021-05-23] MEDS: PANTOPRAZOLE 40 MG/10 ML VIAL IV SCH (08:12)
[2021-05-23] MEDS: TAMSULOSIN 0.4 MG CAP.ER.24H PO SCH (08:12)
[2021-05-23] MEDS: PREGABALIN 100 MG CAP PO SCH ×2 (08:18→20:09)
--- NOTE | 2021-05-23 10:26 | P.PN ---
Subjective Progress Note Date: 05/23/21 Patient seen and examined at bedside. States he is doing well. Pain level is improved compared to yesterday. He is ambulating. Denies nausea or vomiting. Having flatus. Denies bowel movement. Objective - Vital Signs Vital signs: Vital Signs Temp 97.8 F 05/23/21 08:00 Pulse 68 05/23/21 08:00 Resp 20 05/23/21 08:00 BP 141/85 05/23/21 08:00 Pulse Ox 95 05/23/21 08:00 Intake & Output 05/22/21 05/23/21 05/23/21 18:59 06:59 18:59 Intake Total 480 Output Total 40 40 Balance 440 -40 Intake: Oral 480 Output: Drainage 40 40 Lower Anterior Abdomen 40 40 Other: # Voids 2 1 - Constitutional General appearance: Present: cooperative - Gastrointestinal Gastrointestinal Comment(s): Soft, appropriate tenderness, nondistended, no rebound, no guarding, ALFREDO drain in place with serosanguinous output - Psychiatric Psychiatric: Present: A&O x's 3 - Labs CBC & Chem 7: 05/22/21 06:34 05/22/21 06:34 Labs: Abnormal Lab Results - Last 24 Hours (Table) 05/22/21 05/22/21 Range/Units 06:34 06:34 WBC 13.67 H (4.50-10.00) X 10*3/uL RBC 3.77 L (4.40-5.60) X 10*6/uL Hgb 10.7 L (13.0-17.0) g/dL Hct 34.6 L (39.6-50.0) % MCHC 30.9 L (32.0-37.0) g/dL Immature Gran # 0.07 H (0.00-0.04) X 10*3/uL Neutrophils # 10.61 H (1.80-7.70) X 10*3/uL Est GFR (CKD-EPI)NonAf 59.5 L (60.0-200.0) Assessment and Plan Plan: Postoperative day #2, laparoscopic appendectomy. Patient is improving. Will advance patient's diet. Continue to increase ambulation. Discussed with cardiology, plan for Plavix induction to restart tomorrow. Continue with pain control as needed.Continue ALFREDO drain for the time being.
--- NOTE | 2021-05-23 11:02 | P.PN ---
Subjective Progress Note Date: 05/23/21 HISTORY OF PRESENT ILLNESS: This is a 55-year-old male patient of Dr. Savage with past medical history of coronary artery disease with recent 4 vessel CABG on 04/[address] Espinoza, his tory of hypertension, hyperlipidemia, paroxysmal atrial fibrillation status post left atrial appendage ligation and bilateral pulmonary vein ablation, history of alcohol abuse and chronic tobacco use, COPD. Patient states that he had follow- up appointment with Dr. Savage on 05/03 with no medication changes at that time but unfortunately he ran out of all of his medications 2 days ago and has not taken any medications since . He developed abdominal pain on the right side starting yesterday afternoon as well as nausea and vomiting Regarding smoking, patient states that he stopped smoking one half months ago but is babying and trying to cut back. His last alcohol intake was in September 2020. He also has history of Covid infection in February 2021. EKG sinus rhythm CTA was normal with no pulmonary embolism Chest x-ray showed normal findings WBC 18.6 otherwise CBC is unremarkable. Electrolytes and renal function normal. Liver function tests normal. Troponin negative on one drop. Lipase 52. CAT scan of the abdomen and pelvis revealed dilated fluid-filled appendix with inflammatory changes related to appendicitis. Dr. Saldivar is planning for surgical intervention this afternoon. 05/22/2021 Patient continues to deny having any chest pain. He states he has a little shortness of breath sometimes. He has been afebrile, heart rate in the 50s to 70s, blood pressure 127/74. WBC 13.6, hemoglobin 10.7. Electrolytes and renal function normal. He underwent laparoscopic appendectomy yesterday and he states his abdominal pain is just as bad as when he came in although patient is able to ambulate in the hallway. Plavix is on hold until cleared by general surgery to resume but otherwise patient is on all his home cardiac medications. Prescriptions will be sent to his pharmacy for all his cardiac medications since he ran out on . 05/23/2021 Patient examined this point bedside. Patient denies chest pain or pressure. He denies shortness of breath. He was seen by Dr. Saldivar this morning and his diet was advanced to a soft diet. He continues to have a ALFREDO drain in place. His plantars remains on hold. Vital signs are stable. PHYSICAL EXAM: VITAL SIGNS: Reviewed. GENERAL: Well-developed in no acute distress. NECK: Supple. No JVD or thyromegaly LUNGS: Respirations even and unlabored. Lungs essentially clear to auscultation bilaterally. HEART: Regular rate and rhythm. S1 and S2 heard. EXTREMITIES: Normal range of motion. No clubbing or cyanosis. Peripheral pulses intact. No lower extremity edema ASSESSMENT: Acute ruptured Appendicitis status post laparoscopic appendectomy 05/21 Coronary artery disease with recent CABG four-vessel 04/[address] Espinoza Medication noncompliance Hypertension Hyperlipidemia Paroxysmal atrial fibrillation PLAN: Per Dr. Saldivar, may resume Plavix tomorrow Continue additional cardiac medications Patient is stable from a cardiac standpoint Patient to follow up with Dr. Savage outpatient Nurse practitioner note has been reviewed by physician. Signing provider agrees with the documented findings, assessment, and plan of care. Objective - Vital Signs Vital signs: Vital Signs Temp 97.8 F 05/23/21 08:00 Pulse 68 05/23/21 08:00 Resp 20 05/23/21 08:00 BP 141/85 05/23/21 08:00 Pulse Ox 95 05/23/21 08:00 Intake & Output 05/22/21 05/23/21 05/23/21 18:59 06:59 18:59 Intake Total 480 Output Total 40 40 Balance 440 -40 Intake: Oral 480 Output: Drainage 40 40 Lower Anterior Abdomen 40 40 Other: # Voids 2 1 - Labs CBC & Chem 7: 05/22/21 06:34 05/22/21 06:34 Labs: Abnormal Lab Results - Last 24 Hours (Table) 05/22/21 05/22/21 Range/Units 06:34 06:34 WBC 13.67 H (4.50-10.00) X 10*3/uL RBC 3.77 L (4.40-5.60) X 10*6/uL Hgb 10.7 L (13.0-17.0) g/dL Hct 34.6 L (39.6-50.0) % MCHC 30.9 L (32.0-37.0) g/dL Immature Gran # 0.07 H (0.00-0.04) X 10*3/uL Neutrophils # 10.61 H (1.80-7.70) X 10*3/uL Est GFR (CKD-EPI)NonAf 59.5 L (60.0-200.0)
[2021-05-23 11:51] LABS: Basophils % (A) 0 %; Eosinophils # (A) 0.2 k/uL (0-0.7); Eosinophils % (A) 4 %; HCT 34.5 % (39.0-53.0); HGB 11.3 gm/dL (13.0-17.5); Hypochromasia Slight; Lymphocytes # (A) 1.2 k/uL (1.0-4.8); Lymphocytes % (A) 18 %; MCHC 32.6 g/dL (31.0-37.0); MCV 92.1 fL (80.0-100.0); Monocytes # (A) 0.4 k/uL (0-1.0); Monocytes % (A) 5 %; Neutrophils # (A) 4.6 k/uL (1.3-7.7); Neutrophils % (A) 71 %; Platelet Count 238 k/uL (150-450); RBC 3.75 m/uL (4.30-5.90); RDW 13.5 % (11.5-15.5); WBC 6.5 k/uL (3.8-10.6)
[2021-05-23 12:01] LABS: African American GFR (CKD) >90 (>60 ml/min/1.73 sqM); Anion Gap 6 mmol/L; Blood Urea Nitrogen 12 mg/dL (9-20); Calcium 8.7 mg/dL (8.4-10.2); Carbon Dioxide 28 mmol/L (22-30); Chloride 103 mmol/L (98-107); Glucose 116 mg/dL (74-99); Non-African American GFR(CKD) >90 (>60 ml/min/1.73 sqM); Potassium 3.9 mmol/L (3.5-5.1); Sodium 137 mmol/L (137-145)
[2021-05-23] MEDS: HYDROmorphone 0.5 MG/0.5 ML SYRINGE IVP PRN ×3 (12:21→22:26)
--- NOTE | 2021-05-23 14:09 | XR ---
EXAMINATION TYPE: XR chest 1V portable DATE OF EXAM: 05/23/2021 HISTORY: Shortness of breath. COMPARISON: 05/20/2021 TECHNIQUE: Single view of the chest is submitted. FINDINGS: Demonstrated are scattered senescent parenchymal change. There is no evidence for focal infiltrate. The heart is stable. Hilar and mediastinal structures are within normal limits. Degenerative changes are seen of the dorsal spine. IMPRESSION: 1. Chronic changes without evidence for acute pulmonary disease.
[2021-05-23] MEDS ORDERED: FUROSEMIDE 10 MG/ML 4 ML VIAL IV STA (15:30)
[2021-05-23] MEDS: ATORVASTATIN 10 MG TAB PO SCH (20:08)
[2021-05-24] MEDS: AMPICILLIN-SULBACTAM 3 GM in SODIUM CHLORIDE 0.9% 100 ML IVPB SCH ×4 (00:25→19:42)
[2021-05-24] MEDS: HEPARIN SODIUM,PORCINE/PF 5,000 UNIT/0.5 ML SYRINGE SQ SCH ×4 (00:26→22:39)
[2021-05-24] MEDS: KETOROLAC 15 MG/ML 1 ML VIAL IVP SCH ×5 (00:29→21:08)
--- NOTE | 2021-05-24 02:15 | P.PN ---
Subjective Progress Note Date: 05/23/21 This is a pleasant 55 years old male with past medical history of Atrial Fibrillation, COPD,status post left atrial appendage ligation and bilateral pulmonary vein ablation,, Hyperlipidemia, Hypertension, Osteoarthritis . He had recent CABG surgery about one month ago. He is currently on aspirin and Plavix. Alcohol abuse and previous smoker. Presents with abdominal pain thought to be secondary to acute appendicitis. He underwent laparoscopic appendectomy yesterday. Today is postoperative day #1. Is lying in bed in mild distress because of difficult urinating associated with some dysuria, no suprapubic tenderness, urinalysis does not show significant evidence of infection most likely irritation from his local area of inflammation in the appendix bed area. Bladder scan was around 300 and Flomax is added and we recommend keep monitoring for now. One-time dose of pyridium is provided f or the patient He denies chest pain or dyspnea or coughing. mild abdominal pain at the surgery site is expected. No bowel movement yet. No vomiting. Patient's current vitals is a febrile, heart rate 53, breathing rate 17, blood pressure 120/77 and he is saturating 97% at room air. Labs showing leukocytosis with 18.6, rest of the CBC, BMP, liver enzymes and troponin are unremarkable. Urinalysis showed mild protein and ketones in the urine which is expected. No evidence of infection. In the urine CT of the abdomen and pelvis: Dilated fluid-filled appendix with inflammatory changes related to the appendicitis. CTA of the chest: No acute pulmonary embolism. Suspicious pulmonary mass. No adverse change compared to old exam. Chest x-ray: No acute process Abdominal ultrasound: hepatocellular disease including hepatic steatosis. Patient currently on IV Unasyn and Ringer lactate at 100 mL per hour 05/23/2021 Patient is seen and evaluated in follow-up continues with some abdominal di scomfort in the lower right quadrant with palpation. Patient continues with ALFREDO drains and being followed and managed closely by general surgery Dr. Saldivar. Patient is status post appendectomy and most recently underwent coronary bypass with CABG and cardio following as well. Patient reporting some shortness of breath and a chest x-ray is ordered. Will order incentive spirometer and encourage the patient to continue using at least 10 times every hour while awake. Review of systems: Constitutional: No reports of fatigue, fever, or chills Cardiovascular: No reports of chest pain or palpitations Respiratory: reports of occasional shortness of breath, mostly when talking a lot GI: No reports of nausea, vomiting, or diarrhea, reports right lower quadrant tenderness : No reports of dysuria or retention Neurovascular: No reports of weakness or numbness All medications have been reviewed Active Medications Amiodarone HCl (Amiodarone 200 Mg Tab) 400 mg PO DAILY [facility] Last Admin: 05/23/21 08:12 Dose: 400 mg Documented by: Amlodipine Besylate (Amlodipine 5 Mg Tab) 5 mg PO DAILY [facility] Last Admin: 05/23/21 08:12 Dose: 5 mg Documented by: Aspirin (Aspirin 81 Mg) 81 mg PO DAILY [facility] Last Admin: 05/23/21 08:12 Dose: 81 mg Documented by: Atorvastatin Calcium (Atorvastatin 10 Mg Tab) 10 mg PO HS [facility] Last Admin: 05/22/21 20:04 Dose: 10 mg Documented by: Clopidogrel Bisulfate (Clopidogrel 75 Mg Tab) 75 mg PO DAILY [facility] Heparin Sodium (Porcine) (Heparin Sodium,Porcine/Pf 5,000 Unit/0.5 Ml Syringe) 5,000 unit SQ Q8HR [facility] Last Admin: 05/23/21 08:12 Dose: 5,000 unit Documented by: Hydromorphone HCl (Hydromorphone 0.5 Mg/0.5 Ml Syringe) 0.5 mg IVP Q3HR PRN PRN Reason: Severe Pain Last Admin: 05/23/21 12:21 Dose: 0.5 mg Documented by: Ampicillin Sodium/Sulbactam (Sodium 3 gm/ Sodium Chloride) 100 mls @ 200 mls/hr IVPB Q6H [facility]; Protocol Last Admin: 05/23/21 14:31 Dose: 200 mls/hr Documented by: Lactated Ringer's (Lactated Ringers) 1,000 mls @ 25 mls/hr IV .Q24H [facility] Last Admin: 05/23/21 14:32 Dose: 25 mls/hr Documented by: Ketorolac Tromethamine (Ketorolac 15 Mg/Ml 1 Ml Vial) 15 mg IVP Q6HR [facility] Stop: 05/25/21 10:35 Last Admin: 05/23/21 12:06 Dose: Not Given Documented by: Metoprolol Tartrate (Metoprolol Tartrate 25 Mg Tab) 25 mg PO BID [facility] Last Admin: 05/23/21 08:12 Dose: 25 mg Documented by: Naloxone HCl (Naloxone 0.4 Mg/Ml 1 Ml Vial) 0.2 mg IV Q2M PRN PRN Reason: Opioid Reversal Ondansetron HCl (Ondansetron 4 Mg/2 Ml Vial) 4 mg IVP Q8HR PRN PRN Reason: Nausea And Vomiting Oxycodone/Acetaminophen (Oxycodone-Apap 10-325mg 1 Each Tab) 1 each PO Q6HR PRN PRN Reason: Pain Last Admin: 05/23/21 10:52 Dose: 1 each Documented by: Pantoprazole Sodium (Pantoprazole 40 Mg/10 Ml Vial) 40 mg IV DAILY [facility] Last Admin: 05/23/21 08:12 Dose: 40 mg Documented by: Pregabalin (Pregabalin 100 Mg Cap) 100 mg PO BID [facility] Last Admin: 05/23/21 08:18 Dose: Not Given Documented by: Tamsulosin HCl (Tamsulosin 0.4 Mg Cap.Er.24h) 0.4 mg PO PC-BRKFST [facility] Last Admin: 05/23/21 08:12 Dose: 0.4 mg Documented by: Physical exam: GENERAL: The patient is alert and oriented x3, Well developed, well nourished. HEENT: Pupils are round and equally reacting to light. EOMI. No scleral icterus. No conjunctival pallor. Normocephalic, atraumatic. No pharyngeal erythema. No thyromegaly. CARDIOVASCULAR: S1 and S2 muffled PULMONARY: diminished breath sounds bilaterally with no wheezing or crackles noted. ABDOMEN: Soft, tender, mildly distended, normoactive bowel sounds. No palpable organomegaly. ALFREDO drain noted MUSCULOSKELETAL: No joint swelling or deformity. Small surgical wounds are closed and healing EXTREMITIES: No cyanosis, clubbing, or pedal edema. NEUROLOGICAL: Gross neurological examination did not reveal any focal deficits. SKIN: No rashes. No petechiae Assessment: Acute appendicitis, status post laparoscopic appendectomy. Today's postop day #2. Possible mild sepsis on admission secondary to appendiceal infection, currently resolved Recent history of coronary artery bypass grafting about one month ago. Paroxysmal atrial fibrillation not on anticoagulation Mild urinary retention COPD with no acute exacerbation Hypertension Hyperlipidemia History of osteoarthritis DVT prophylaxis: Subcutaneous heparin GI Prophylaxis: Ppi Full code Plan: This is a pleasant 55 years old male with appendicitis status post laparoscopic appendectomy with DR. Saldivar Continue with pain medication and postoperative care. Patient was on aspirin and Plavix prior to surgery, recommend resuming this medication once he is cleared by surgery team. Cardiology following Continue with Unasyn and gentle hydration, decrease IV rate dose Chest xray ordered and showing no acute process. Patient with some shortness of breath and ordered one time dose of IV lasix and patient refused. Ordered Incentive spirometer and encouraged to use at least 10 times per hour while awake continue with Flomax. Keep checking bladder scan every shift for 24 hours and monitor for retention. Thank you for this consultation. We will continue to follow and make further recommendations based on the clinical course of the patient The impression and plan of care has been dictated by Roxane Gomez, Nurse Practitioner as directed. Dr. Kingsley MD I have performed a history and examination and MDM of this patient, discussed the same with the dictator, and agree with the dictator's assessment and plan as written ,documented as a scribe. Based on total visit time, I have performed more than 50% of the visit. Objective - Vital Signs Vital signs: Vital Signs Temp 97.8 F 05/23/21 08:00 Pulse 68 05/23/21 08:00 Resp 20 05/23/21 08:00 BP 141/85 05/23/21 08:00 Pulse Ox 95 05/23/21 08:00 Intake & Output 05/22/21 05/23/21 05/23/21 18:59 06:59 18:59 Intake Total 480 Output Total 40 40 Balance 440 -40 Intake: Oral 480 Output: Drainage 40 40 Lower Anterior Abdomen 40 40 Other: # Voids 2 1 - Labs CBC & Chem 7: 05/23/21 11:40 05/23/21 11:40 Labs: Abnormal Lab Results - Last 24 Hours (Table) 05/22/21 05/22/21 Range/Units 06:34 06:34 WBC 13.67 H (4.50-10.00) X 10*3/uL RBC 3.77 L (4.40-5.60) X 10*6/uL Hgb 10.7 L (13.0-17.0) g/dL Hct 34.6 L (39.6-50.0) % MCHC 30.9 L (32.0-37.0) g/dL Immature Gran # 0.07 H (0.00-0.04) X 10*3/uL Neutrophils # 10.61 H (1.80-7.70) X 10*3/uL Est GFR (CKD-EPI)NonAf 59.5 L (60.0-200.0)
[2021-05-24] MEDS: oxyCODONE-APAP 10-325MG 1 EACH TAB PO PRN ×4 (05:54→22:39)
[2021-05-24] MEDS: HYDROmorphone 0.5 MG/0.5 ML SYRINGE IVP PRN (08:02)
[2021-05-24] MEDS: TAMSULOSIN 0.4 MG CAP.ER.24H PO SCH (09:28)
[2021-05-24] MEDS: PREGABALIN 100 MG CAP PO SCH ×2 (09:29→20:57)
[2021-05-24] MEDS: METOPROLOL TARTRATE 25 MG TAB PO SCH ×2 (09:29→20:57)
[2021-05-24] MEDS: AMIODARONE 200 MG TAB PO SCH (09:29)
[2021-05-24] MEDS: ASPIRIN 81 MG PO SCH (09:29)
[2021-05-24] MEDS: amLODIPine 5 MG TAB PO SCH (09:29)
[2021-05-24] MEDS: CLOPIDOGREL 75 MG TAB PO SCH (09:29)
[2021-05-24] MEDS: PANTOPRAZOLE 40 MG/10 ML VIAL IV SCH (11:26)
--- NOTE | 2021-05-24 12:21 | P.PN ---
Subjective Progress Note Date: 05/24/21 Patient seen and examined at bedside. States he had a large frosty yesterday and began having abdominal pain after that did pass. Denies any nausea or vomiting. Having flatus. Leukocytosis resolved. Objective - Vital Signs Vital signs: Vital Signs Temp 97.7 F 05/24/21 07:00 Pulse 61 05/24/21 07:00 Resp 18 05/24/21 07:00 BP 155/87 05/24/21 07:00 Pulse Ox 97 05/24/21 07:00 Intake & Output 05/23/21 05/24/21 05/24/21 18:59 06:59 18:59 Intake Total 120 120 Output Total 60 90 Balance 60 -90 120 Intake: Oral 120 120 Output: Drainage 60 90 Lower Anterior Abdomen 60 90 Other: Voiding Method Toilet - Constitutional General appearance: Present: no acute distress - Gastrointestinal Gastrointestinal Comment(s): Soft, appropriate tenderness, nondistended, no rebound, no guarding, incision sites are clean, dry and intact, ALFREDO drain in place with serosanguineous output - Psychiatric Psychiatric: Present: A&O x's 3 - Labs CBC & Chem 7: 05/23/21 11:40 05/23/21 11:40 Assessment and Plan Plan: Postoperative day #3, laparoscopic appendectomy. Patient is improving. Patient had abdominal pain after drinking a large frosty from [employer], I did recommend staying on a low-fat diet and not to overdo it on the diet. He is having flatus but denies bowel movement. ALFREDO drain is removed today. Discontinue IV opiates. Hep-Lock IV. Likely discharge tomorrow morning if patient is cleared by cardiology and internal medicine.
--- NOTE | 2021-05-24 15:08 | CDI ---
Documentation Clarification Form Date: 05/24/2021 02:57:19 PM From: Coco Baig CCS, CCDS Admit Date: 05/21/2021 03:40:00 PM Patient Name: Valdemar Flowers Visit Number: [id number] Discharge Date: ATTENTION: The Clinical Documentation Specialists (CDI) and [facility] Coding Staff appreciate your assistance in clarifying documentation. Please respond to the clarification below the line at the bottom and electronically sign. The CDI & [facility] Coding staff will review the response and follow-up if needed. Please note: Queries are made part of the Legal Health Record. If you have any questions, please contact the author of this message via ITS. Dr. Ernesto Wilks. Sheet: Mild Urinary Retention is documented in the 05/22 Medical Management Consult and the subsequent Medical Management Progress Note. Additional clarification is requested regarding the relationship, if any, that exists between the diagnosis and the procedure. Patients Admitting Diagnosis 05/21 H/P: Acute Appendicitis Post-Operative Diagnosis per the 05/21 OR Note: Acute Ruptured Appendicitis Procedure performed 05/21: Laparoscopic Appendectomy History/Risk Factors per the 05/21 Surgical H/P: CAD with recent CABG on Plavix, CAD, Atrial Fibrillation, COPD, Hyperlipidemia, Hypertension, Osteoarthritis, EtOH Abuse, Chronic Cervical & Back Pain, Knee pain/Meniscus tear, Anxiety, Depression, Smoker. Clinical Indicators: Presented to the ED on 05/20 with Abdominal & Chest Pain, Nausea. Admit with Acute Appendicitis I&O: 05/22: Intake: 700 ml, Output 285, Balance 415 ml 05/23: Intake 480 ml, Output 80 ml, Balance 400 mls 05/24: Intake 120 ml, Output 150 ml, Balance -30 ml 05/22 Bladder Scan: 304 ml 05/23 Bladder Scan: 101-150 ml Treatment 05/23: One time dose of IV Lasix (patient refused), Incentive Spirometer, Flomax, C=Bladder scan q-shift x24hrs. What relationship, if any, exists between the diagnosis of Urinary Retention and the procedure: [ ] Urinary Retention is a complication of surgical procedure [ ] Urinary Retention is an expected outcome of the surgical procedure [ ] Urinary Retention is related to patients co-morbid condition(s), please specify: and is not a complication of the procedure [ ] Other please specify: [ ] Unable to determine (Template Last Revised: April 2020) Urinary Retention could be a complication of surgical procedure if anticholinergic medications are given MTDD
[2021-05-24] MEDS: ATORVASTATIN 10 MG TAB PO SCH (20:57)
--- NOTE | 2021-05-24 23:37 | P.PN ---
Subjective Progress Note Date: 05/24/21 This is a pleasant 55 years old male with past medical history of Atrial Fibrillation, COPD,status post left atrial appendage ligation and bilateral pulmonary vein ablation,, Hyperlipidemia, Hypertension, Osteoarthritis . He had recent CABG surgery about one month ago. He is currently on aspirin and Plavix. Alcohol abuse and previous smoker. Presents with abdominal pain thought to be secondary to acute appendicitis. He underwent laparoscopic appendectomy yesterday. Today is postoperative day #1. Is lying in bed in mild distress because of difficult urinating associated with some dysuria, no suprapubic tenderness, urinalysis does not show significant evidence of infection most likely irritation from his local area of inflammation in the appendix bed area. Bladder scan was around 300 and Flomax is added and we recommend keep monitoring for now. One-time dose of pyridium is provided f or the patient He denies chest pain or dyspnea or coughing. mild abdominal pain at the surgery site is expected. No bowel movement yet. No vomiting. Patient's current vitals is a febrile, heart rate 53, breathing rate 17, blood pressure 120/77 and he is saturating 97% at room air. Labs showing leukocytosis with 18.6, rest of the CBC, BMP, liver enzymes and troponin are unremarkable. Urinalysis showed mild protein and ketones in the urine which is expected. No evidence of infection. In the urine CT of the abdomen and pelvis: Dilated fluid-filled appendix with inflammatory changes related to the appendicitis. CTA of the chest: No acute pulmonary embolism. Suspicious pulmonary mass. No adverse change compared to old exam. Chest x-ray: No acute process Abdominal ultrasound: hepatocellular disease including hepatic steatosis. Patient currently on IV Unasyn and Ringer lactate at 100 mL per hour 05/23/2021 Patient is seen and evaluated in follow-up continues with some abdominal di scomfort in the lower right quadrant with palpation. Patient continues with ALFREDO drains and being followed and managed closely by general surgery Dr. Saldivar. Patient is status post appendectomy and most recently underwent coronary bypass with CABG and cardio following as well. Patient reporting some shortness of breath and a chest x-ray is ordered. Will order incentive spirometer and encourage the patient to continue using at least 10 times every hour while awake. 05/24/2021 Patient is seen in follow-up this morning reports to feeling somewhat distended and continues with gas although reports no bowel movement as of yet. Patient has been walking in his room and up and down the halls multiple times and denies any increasing pain, chest pain, or shortness of breath. Patient is afebrile. ALFREDO drain to be removed today. Encouraged incentive spirometer use at least 10 times every hour while awake. Attempted to give a dose of IV Lasix and patient refused. Patient is maintained on low fat diet and strongly encourage the patient to eat small frequent meals and continue to increase activity as tolerated and following along with surgery recommendations as far as diet. Review of systems: Constitutional: No reports of fatigue, fever, or chills Cardiovascular: No reports of chest pain or palpitations Respiratory: reports of occasional shortness of breath, mostly when talking a lot GI: No reports of nausea, vomiting, or diarrhea, reports right lower quadrant tenderness : No reports of dysuria or retention Neurovascular: No reports of weakness or numbness All medications have been reviewed Active Medications Amiodarone HCl (Amiodarone 200 Mg Tab) 400 mg PO DAILY [facility] Last Admin: 05/24/21 09:29 Dose: 400 mg Documented by: Amlodipine Besylate (Amlodipine 5 Mg Tab) 5 mg PO DAILY [facility] Last Admin: 05/24/21 09:29 Dose: 5 mg Documented by: Aspirin (Aspirin 81 Mg) 81 mg PO DAILY [facility] Last Admin: 05/24/21 09:29 Dose: 81 mg Documented by: Atorvastatin Calcium (Atorvastatin 10 Mg Tab) 10 mg PO HS [facility] Last Admin: 05/23/21 20:08 Dose: 10 mg Documented by: Clopidogrel Bisulfate (Clopidogrel 75 Mg Tab) 75 mg PO DAILY [facility] Last Admin: 05/24/21 09:29 Dose: 75 mg Documented by: Heparin Sodium (Porcine) (Heparin Sodium,Porcine/Pf 5,000 Unit/0.5 Ml Syringe) 5,000 unit SQ Q8HR [facility] Last Admin: 05/24/21 09:29 Dose: Not Given Documented by: Hydromorphone HCl (Hydromorphone 0.5 Mg/0.5 Ml Syringe) 0.5 mg IVP Q3HR PRN PRN Reason: Severe Pain Last Admin: 05/24/21 08:02 Dose: 0.5 mg Documented by: Ampicillin Sodium/Sulbactam (Sodium 3 gm/ Sodium Chloride) 100 mls @ 200 mls/hr IVPB Q6H [facility]; Protocol Last Admin: 05/24/21 08:01 Dose: 200 mls/hr Documented by: Lactated Ringer's (Lactated Ringers) 1,000 mls @ 25 mls/hr IV .Q24H [facility] Last Admin: 05/23/21 14:32 Dose: 25 mls/hr Documented by: Ketorolac Tromethamine (Ketorolac 15 Mg/Ml 1 Ml Vial) 15 mg IVP Q6HR [facility] Stop: 05/25/21 10:35 Last Admin: 05/24/21 05:51 Dose: Not Given Documented by: Metoprolol Tartrate (Metoprolol Tartrate 25 Mg Tab) 25 mg PO BID [facility] Last Admin: 05/24/21 09:29 Dose: 25 mg Documented by: Naloxone HCl (Naloxone 0.4 Mg/Ml 1 Ml Vial) 0.2 mg IV Q2M PRN PRN Reason: Opioid Reversal Ondansetron HCl (Ondansetron 4 Mg/2 Ml Vial) 4 mg IVP Q8HR PRN PRN Reason: Nausea And Vomiting Oxycodone/Acetaminophen (Oxycodone-Apap 10-325mg 1 Each Tab) 1 each PO Q6HR PRN PRN Reason: Pain Last Admin: 05/24/21 05:54 Dose: 1 each Documented by: Pantoprazole Sodium (Pantoprazole 40 Mg/10 Ml Vial) 40 mg IV DAILY [facility] Last Admin: 05/23/21 08:12 Dose: 40 mg Documented by: Pregabalin (Pregabalin 100 Mg Cap) 100 mg PO BID [facility] Last Admin: 05/24/21 09:29 Dose: 100 mg Documented by: Tamsulosin HCl (Tamsulosin 0.4 Mg Cap.Er.24h) 0.4 mg PO -BRKFST [facility] Last Admin: 05/24/21 09:28 Dose: 0.4 mg Documented by: Physical exam: GENERAL: The patient is alert and oriented x3, Well developed, well nourished. HEENT: Pupils are round and equally reacting to light. EOMI. No scleral icterus. No conjunctival pallor. Normocephalic, atraumatic. No pharyngeal erythema. No thyromegaly. CARDIOVASCULAR: S1 and S2 muffled PULMONARY: diminished breath sounds bilaterally with no wheezing or crackles noted. ABDOMEN: Soft, tender, mildly distended, normoactive bowel sounds. No palpable organomegaly. ALFREDO drain noted MUSCULOSKELETAL: No joint swelling or deformity. Small surgical wounds are closed and healing EXTREMITIES: No cyanosis, clubbing, or pedal edema. NEUROLOGICAL: Gross neurological examination did not reveal any focal deficits. SKIN: No rashes. No petechiae Assessment: Acute appendicitis, status post laparoscopic appendectomy. Today's postop day #3. Possible mild sepsis on admission secondary to appendiceal infection, currently resolved Recent history of coronary artery bypass grafting about one month ago. Paroxysmal atrial fibrillation not on anticoagulation Mild urinary retention, an expected outcome of surgical procedure COPD with no acute exacerbation Hypertension Hyperlipidemia History of osteoarthritis DVT prophylaxis: Subcutaneous heparin GI Prophylaxis: Ppi Full code Plan: This is a pleasant 55 years old male with appendicitis status post laparoscopic appendectomy with DR. Saldivar Continue with pain medication and postoperative care. Patient was on aspirin and Plavix prior to surgery, recommend resuming this medication once he is cleared by surgery team. Cardiology following Continue with Unasyn and gentle hydration, decrease IV rate dos Continue to encourage Incentive spirometer at least 10 times per hour while awake continue with Flomax. Keep checking bladder scan every shift for 24 hours and monitor for retention. Discussed with patient about diet and maintaining strict diet per surgical recommendations and continue with small frequent meals Encouraged increased activity as tolerated. ALFREDO drain to be removed per surgery. Thank you for this consultation. We will continue to follow and make further recommendations based on the clinical course of the patient The impression and plan of care has been dictated by Roxane Gomez Nurse Pr actitioner as directed. Dr. Kingsley MD I have performed a history and examination and MDM of this patient, discussed the same with the dictator, and agree with the dictator's assessment and plan as written ,documented as a scribe. Based on total visit time, I have performed more than 50% of the visit. Objective - Vital Signs Vital signs: Vital Signs Temp 97.7 F 05/24/21 07:00 Pulse 61 05/24/21 07:00 Resp 18 05/24/21 07:00 BP 155/87 05/24/21 07:00 Pulse Ox 97 05/24/21 07:00 Intake & Output 05/23/21 05/24/21 05/24/21 18:59 06:59 18:59 Intake Total 120 120 Output Total 60 90 Balance 60 -90 120 Intake: Oral 120 120 Output: Drainage 60 90 Lower Anterior Abdomen 60 90 Other: Voiding Method Toilet - Labs CBC & Chem 7: 05/23/21 11:40 05/23/21 11:40 Labs: Abnormal Lab Results - Last 24 Hours (Table) 05/23/21 05/23/21 Range/Units 11:40 11:40 RBC 3.75 L (4.30-5.90) m/uL Hgb 11.3 L (13.0-17.5) gm/dL Hct 34.5 L (39.0-53.0) % Glucose 116 H (74-99) mg/dL
[2021-05-25] MEDS: AMPICILLIN-SULBACTAM 3 GM in SODIUM CHLORIDE 0.9% 100 ML IVPB SCH ×2 (00:18→07:13)
[2021-05-25] MEDS: KETOROLAC 15 MG/ML 1 ML VIAL IVP SCH ×2 (03:22→09:46)
[2021-05-25 07:03] VITALS: BP 145/91; RESP 18; TEMP 98
[2021-05-25] MEDS: oxyCODONE-APAP 10-325MG 1 EACH TAB PO PRN (07:12)
[2021-05-25] MEDS: HEPARIN SODIUM,PORCINE/PF 5,000 UNIT/0.5 ML SYRINGE SQ SCH ×2 (07:14→07:19)
[2021-05-25 07:28] VITALS: PULSE 60
--- NOTE | 2021-05-25 08:15 | P.DS ---
Providers Date of admission: 05/21/21 15:40 Attending physician: Marcie Saldivar DO Consults: 05/21/21 01:54 Consult Physician Routine Consulting Provider: Sana Wynn Reason/Comments: med Do you want consulting provider notified?: Yes Primary care physician: Maryan Gomez [facility] Course: 55-year-old male presented to the emergency department with right lower quadrant abdominal pain. He was found to have acute appendicitis with concern for rupture. He is also noted to have a recent history of CABG procedure and is taking anticoagulation. Patient was evaluated by cardiology and plan for left scopic appendectomy as there was concern for developing sepsis. Postoperatively, patient improved after he was sent back to medical surgical floor. He was followed by cardiology and internal medicine. His diet was advanced as tolerated. ALFREDO drain was initially placed and removed with decreased serosanguineous output. Patient states that he did have a bowel movement on day of discharge. He states he is feeling much better on day of discharge. Leukocytosis resolved. Patient is surgically stable for discharge. Procedures: Laparoscopic appendectomy Patient Condition at Discharge: Good Plan - Discharge Summary New Discharge Prescriptions: Continue Aspirin 81 mg PO DAILY #30 chew Vitamin B Complex 1 tab PO DAILY Multivitamins, Thera [Multivitamin (formulary)] 1 tab PO DAILY Pregabalin [Lyrica] 100 mg PO BID Rosuvastatin Calcium [Crestor] 5 mg PO HS #30 tab Metoprolol Tartrate [Lopressor] 25 mg PO BID #60 tab Clopidogrel [Plavix] 75 mg PO DAILY #30 tab Pantoprazole [Protonix] 40 mg PO AC-BRKFST #30 tab oxyCODONE-APAP 10-325MG [Percocet 10-325 mg] 1 tab PO Q6HR PRN 7 Days #28 tab PRN Reason: Pain Sennosides-Docusate Sodium [Senokot-S] 2 tab PO HS PRN PRN Reason: Constipation amLODIPine BESYLATE 5 mg PO DAILY #30 tab Changed Amiodarone [Cordarone] 200 mg PO DAILY #30 tab Discharge Medication List Aspirin 81 mg PO DAILY #30 chew 08/10/20 [Rx] Vitamin B Complex 1 tab PO DAILY 02/25/21 [History] Multivitamins, Thera [Multivitamin (formulary)] 1 tab PO DAILY 04/07/21 [History] Pantoprazole [Protonix] 40 mg PO AC-BRKFST #30 tab 04/19/21 [Rx] oxyCODONE-APAP 10-325MG [Percocet 10-325 mg] 1 tab PO Q6HR PRN 7 Days #28 tab 04/19/21 [Rx] Pregabalin [Lyrica] 100 mg PO BID 05/20/21 [History] Sennosides-Docusate Sodium [Senokot-S] 2 tab PO HS PRN 05/20/21 [History] Amiodarone [Cordarone] 200 mg PO DAILY #30 tab 05/22/21 [Rx] Clopidogrel [Plavix] 75 mg PO DAILY #30 tab 05/22/21 [Rx] Metoprolol Tartrate [Lopressor] 25 mg PO BID #60 tab 05/22/21 [Rx] Rosuvastatin Calcium [Crestor] 5 mg PO HS #30 tab 05/22/21 [Rx] amLODIPine BESYLATE 5 mg PO DAILY #30 tab 05/22/21 [Rx] Follow up Appointment(s)/Referral(s): Marybel Steinberg MD [Primary Care Provider] - 1-[address] [facility] [REFERRING] - Sal Savage MD [STAFF PHYSICIAN] - 1 Week Marcie Saldivar DO [Doctor of Osteopathic Medicine] - 2 Weeks [facility] Nurse, [NON-STAFF] - 1-2 Days Patient Instructions/Handouts: Laparoscopic Appendectomy (DC) Discharge/Stand Alone Forms: Who Do I Call?, Personal Composition Instructor Discharge Disposition: HOME WITH HOME HEALTH SERVICES
[2021-05-25] MEDS: PANTOPRAZOLE 40 MG/10 ML VIAL IV SCH (09:45)
[2021-05-25] MEDS: amLODIPine 5 MG TAB PO SCH (09:47)
[2021-05-25] MEDS: PREGABALIN 100 MG CAP PO SCH (09:47)
[2021-05-25] MEDS: CLOPIDOGREL 75 MG TAB PO SCH (09:47)
[2021-05-25] MEDS: ASPIRIN 81 MG PO SCH (09:47)
[2021-05-25] MEDS: TAMSULOSIN 0.4 MG CAP.ER.24H PO SCH (09:47)
[2021-05-25] MEDS: METOPROLOL TARTRATE 25 MG TAB PO SCH (09:47)
[2021-05-25] MEDS: AMIODARONE 200 MG TAB PO SCH (09:50)
--- NOTE | 2021-05-25 14:00 | P.PN ---
Subjective Progress Note Date: 05/25/21 This is a pleasant 55 years old male with past medical history of Atrial Fibrillation, COPD,status post left atrial appendage ligation and bilateral pulmonary vein ablation,, Hyperlipidemia, Hypertension, Osteoarthritis . He had recent CABG surgery about one month ago. He is currently on aspirin and Plavix. Alcohol abuse and previous smoker. Presents with abdominal pain thought to be secondary to acute appendicitis. He underwent laparoscopic appendectomy yesterday. Today is postoperative day #1. Is lying in bed in mild distress because of difficult urinating associated with some dysuria, no suprapubic tenderness, urinalysis does not show significant evidence of infection most likely irritation from his local area of inflammation in the appendix bed area. Bladder scan was around 300 and Flomax is added and we recommend keep monitoring for now. One-time dose of pyridium is provided f or the patient He denies chest pain or dyspnea or coughing. mild abdominal pain at the surgery site is expected. No bowel movement yet. No vomiting. Patient's current vitals is a febrile, heart rate 53, breathing rate 17, blood pressure 120/77 and he is saturating 97% at room air. Labs showing leukocytosis with 18.6, rest of the CBC, BMP, liver enzymes and troponin are unremarkable. Urinalysis showed mild protein and ketones in the urine which is expected. No evidence of infection. In the urine CT of the abdomen and pelvis: Dilated fluid-filled appendix with inflammatory changes related to the appendicitis. CTA of the chest: No acute pulmonary embolism. Suspicious pulmonary mass. No adverse change compared to old exam. Chest x-ray: No acute process Abdominal ultrasound: hepatocellular disease including hepatic steatosis. Patient currently on IV Unasyn and Ringer lactate at 100 mL per hour 05/23/2021 Patient is seen and evaluated in follow-up continues with some abdominal di scomfort in the lower right quadrant with palpation. Patient continues with ALFREDO drains and being followed and managed closely by general surgery Dr. Saldivar. Patient is status post appendectomy and most recently underwent coronary bypass with CABG and cardio following as well. Patient reporting some shortness of breath and a chest x-ray is ordered. Will order incentive spirometer and encourage the patient to continue using at least 10 times every hour while awake. 05/24/2021 Patient is seen in follow-up this morning reports to feeling somewhat distended and continues with gas although reports no bowel movement as of yet. Patient has been walking in his room and up and down the halls multiple times and denies any increasing pain, chest pain, or shortness of breath. Patient is afebrile. ALFREDO drain to be removed today. Encouraged incentive spirometer use at least 10 times every hour while awake. Attempted to give a dose of IV Lasix and patient refused. Patient is maintained on low fat diet and strongly encourage the patient to eat small frequent meals and continue to increase activity as tolerated and following along with surgery recommendations as far as diet. 05/25/2021 Patient is seen and evaluated in follow-up today and being closely monitored with Dr. Saldivar as admitting services and patient is status post appendectomy. Cardiology also following and patient will need follow-up appointment with Dr. Savage along with cardiothoracic surgeon Dr. Espinoza in the outpatient setting as patient is recently status post CABG. Patient has been up and walking and continuing to use incentive spirometer and denies chest pain. Patient denies shortness of breath although reports to having intermittent shortness of breath at times when speaking. Patient is afebrile and tolerating diet and anticipating going home today. Strongly encourage the patient to continue with low-fat dietary restrictions per surgery recommendations and small frequent meals. Case management also provided resources for home care and outpatient needs along with providing transportation through his insurance for follow-up appointments. Review of systems: Constitutional: No reports of fatigue, fever, or chills Cardiovascular: No reports of chest pain or palpitations Respiratory: reports of occasional shortness of breath, mostly when talking a lot GI: No reports of nausea, vomiting, or diarrhea, reports right lower quadrant tenderness has improved : No reports of dysuria or retention Neurovascular: No reports of weakness or numbness All medications have been reviewed Physical exam: GENERAL: The patient is alert and oriented x3, Well developed, well nourished. HEENT: Pupils are round and equally reacting to light. EOMI. No scleral icterus. No conjunctival pallor. Normocephalic, atraumatic. No pharyngeal erythema. No thyromegaly. CARDIOVASCULAR: S1 and S2 muffled PULMONARY: diminished breath sounds bilaterally with no wheezing or crackles noted. ABDOMEN: Soft, less tender on palpation today, mildly distended, normoactive bowel sounds. No palpable organomegaly. MUSCULOSKELETAL: No joint swelling or deformity. Small surgical wounds are closed and healing EXTREMITIES: No cyanosis, clubbing, or pedal edema. NEUROLOGICAL: Gross neurological examination did not reveal any focal deficits. SKIN: No rashes. No petechiae Assessment: Acute appendicitis, status post laparoscopic appendectomy. Today's postop day #4. Possible mild sepsis on admission secondary to appendiceal infection, currently resolved Recent history of coronary artery bypass grafting about one month ago. Paroxysmal atrial fibrillation not on anticoagulation Mild urinary retention, an expected outcome of surgical procedure COPD with no acute exacerbation Hypertension Hyperlipidemia History of osteoarthritis DVT prophylaxis: Subcutaneous heparin GI Prophylaxis: Ppi Full code Plan: This is a pleasant 55 years old male with appendicitis status post laparoscopic appendectomy with DR. Saldivar Continue with pain medication and postoperative care. Patient to continue on aspirin and Plavix per cardiology Cardiology following and recommending outpatient follow-up with Dr. Savage along with cardiothoracic outpatient follow-up with Dr. Espinoza and patient reports to having an appointment scheduled Continue to encourage Incentive spirometer at least 10 times per hour while awake and encourage the patient to continue using while at home continue with Flomax. Patient reports to urinating with no difficulties and denies any retention. Discussed with patient about diet and maintaining strict diet per surgical recommendations and continue with small frequent meals Encouraged increased activity as tolerated. Thank you for this consultation. We will continue to follow and make further recommendations based on the clinical course of the patient, patient reports to being discharged today by surgical services. Encourage the patient to follow-up with his primary care provider Dr. Steinberg as well as cardiology and cardiothoracic surgery. The impression and plan of care has been dictated by Roxane Gomez, Nurse Practitioner as directed. Dr. Kingsley MD I have performed a history and examination and MDM of this patient, discussed the same with the dictator, and agree with the dictator's assessment and plan as written ,documented as a scribe. Based on total visit time, I have performed more than 50% of the visit. Objective - Vital Signs Vital signs: Vital Signs Temp 98 F 05/25/21 07:02 Pulse 60 05/25/21 07:25 Resp 18 05/25/21 07:02 BP 145/91 05/25/21 07:02 Pulse Ox 95 05/25/21 07:02 Intake & Output 05/24/21 05/25/21 05/25/21 18:59 06:59 18:59 Intake Total 120 Output Total 20 Balance 100 Intake: Oral 120 Output: Drainage 20 Lower Anterior Abdomen 20 Other: Voiding Method Toilet # Voids 1 3 1 - Labs CBC & Chem 7: 05/23/21 11:40 05/23/21 11:40
== END 2021-05-25 12:55 | disposition home health service (06) | DRG 853 ==
LOC: EC 19:34 → 6NMEDSUR 05-21 00:40 → OBSVTOIN 05-21 15:40
PROVIDERS: ADMIT Surgery; ATTEND Surgery
PROC: 0DTJ4ZZ Resection of Appendix, Percutaneous Endoscopic Approach (ICD-10-PCS; principal; 2021-05-21 10:00)
DX: A41.9 Sepsis, unspecified organism (principal); K35.32 Acute appendicitis with perforation, localized peritonitis, and gangrene, without abscess; J44.9 Chronic obstructive pulmonary disease, unspecified; I48.0 Paroxysmal atrial fibrillation; M19.90 Unspecified osteoarthritis, unspecified site; F10.21 Alcohol dependence, in remission; R33.9 Retention of urine, unspecified; I25.10 Atherosclerotic heart disease of native coronary artery without angina pectoris; I10 Essential (primary) hypertension; E78.5 Hyperlipidemia, unspecified; N99.89 Other postprocedural complications and disorders of genitourinary system; F17.290 Nicotine dependence, other tobacco product, uncomplicated; G89.29 Other chronic pain; M54.2 Cervicalgia; M54.9 Dorsalgia, unspecified; M25.562 Pain in left knee; F32.A Depression, unspecified; F41.9 Anxiety disorder, unspecified; Z91.14 Patient's other noncompliance with medication regimen; Z95.1 Presence of aortocoronary bypass graft; Z79.899 Other long term (current) drug therapy; Z79.82 Long term (current) use of aspirin; Z79.02 Long term (current) use of antithrombotics/antiplatelets; Z86.16 Personal history of COVID-19; Z87.828 Personal history of other (healed) physical injury and trauma; Z82.49 Family history of ischemic heart disease and other diseases of the circulatory system; Z80.41 Family history of malignant neoplasm of ovary; Z86.79 Personal history of other diseases of the circulatory system
CPT/HCPCS: 36415; 71045; 71275; 74177; 76705; 80048; 80053; 81001; 83605; 83690; 84484; 85025; 88304; 93005; 96361; 96374; 96375; 99285

== ENCOUNTER → 2021-07-21 | Outpatient (CLI) | payer OTHER ==
--- NOTE | 2021-07-21 15:48 | XR ---
EXAMINATION TYPE: XR knee limited LT DATE OF EXAM: 07/21/2021 COMPARISON: None HISTORY: Knee pain TECHNIQUE: 2 view left knee FINDINGS: Joint spaces are preserved. Small to moderate joint effusion may be present. No acute displ aced fractures are evident. Follow-up studies can be performed 7-10 days from acute trauma for contin ued pain. MRI can evaluate soft tissues. IMPRESSION: 1. May be a small to moderate joint effusion present. Correlation recommended. 2. No acute osseous abnormality radiographically apparent.
== END | disposition home or self-care (01) ==
LOC: RADXRMAIN 15:27
PROVIDERS: ATTEND Family Medicine
DX: M25.562 Pain in left knee (principal)

== ENCOUNTER → 2021-07-27 | Outpatient (CLI) | payer OTHER ==
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
== END | disposition home or self-care (01) ==
LOC: RADMRIMAIN 17:51
PROVIDERS: ATTEND Dietitian, Registered
DX: M50.223 Other cervical disc displacement at C6-C7 level (principal)
CPT/HCPCS: 72141; 72148

== ENCOUNTER → 2021-08-19 | Outpatient (CLI) | payer OTHER ==
--- NOTE | 2021-08-19 15:11 | XR ---
EXAMINATION TYPE: XR knee 4V LT DATE OF EXAM: 08/19/2021 CLINICAL HISTORY: 20 meniscus left knee with knee pain TECHNIQUE: Three views of the left knee are obtained. A fourth sunrise view was acquired. COMPARISON: Prior left knee x-ray July 21, 2021. FINDINGS: There is no acute fracture/dislocation evident in left knee. Mild to moderate narrowing me dial tibiofemoral compartment is redemonstrated. Persistent large suprapatellar joint effusion. Larson lar articulation remain in satisfactory sunrise view. IMPRESSION: As above. No significant change from prior.
== END | disposition home or self-care (01) ==
LOC: RADXRMAIN 14:27
PROVIDERS: ATTEND Orthopaedic Surgery
DX: M17.12 Unilateral primary osteoarthritis, left knee (principal)

== ENCOUNTER 2021-10-27 12:00 | Inpatient (IN) | payer OTHER ==
[2021-10-27] MEDS ORDERED: NITROGLYCERIN OINT 1 INCH/GM PACKET TOPICAL STA (12:18)
[2021-10-27] MEDS ORDERED: ASPIRIN 81 MG PO STA (12:18)
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
[2021-10-27 12:43] LABS: Basophils # (A) 0.1 k/uL (0-0.2); Basophils % (A) 1 %; Eosinophils # (A) 0.1 k/uL (0-0.7); Eosinophils % (A) 1 %; HCT 42.3 % (39.0-53.0); HGB 14.4 gm/dL (13.0-17.5); Lymphocytes # (A) 1.3 k/uL (1.0-4.8); Lymphocytes % (A) 18 %; MCH 30.3 pg (25.0-35.0); MCV 89.2 fL (80.0-100.0); Mean Platelet Volume 7.2; Monocytes # (A) 0.5 k/uL (0-1.0); Monocytes % (A) 6 %; Neutrophils # (A) 5.4 k/uL (1.3-7.7); Neutrophils % (A) 73 %; Platelet Count 231 k/uL (150-450); RBC 4.75 m/uL (4.30-5.90); RDW 13.1 % (11.5-15.5); WBC 7.4 k/uL (3.8-10.6)
[2021-10-27 12:57] LABS: INR 0.9 (<1.2); Prothrombin Time 10.3 sec (9.0-12.0)
[2021-10-27 13:00] LABS: ALT 28 U/L (4-49); AST 43 U/L (17-59); African American GFR (CKD) >90 (>60 ml/min/1.73 sqM); Albumin 5.2 g/dL (3.5-5.0); Alkaline Phosphatase 56 U/L (38-126); Anion Gap 14 mmol/L; Blood Urea Nitrogen 21 mg/dL (9-20); Calcium 9.4 mg/dL (8.4-10.2); Carbon Dioxide 25 mmol/L (22-30); Chloride 96 mmol/L (98-107); Glucose 108 mg/dL (74-99); Magnesium 1.8 mg/dL (1.6-2.3); Non-African American GFR(CKD) 79 (>60 ml/min/1.73 sqM); Potassium 3.6 mmol/L (3.5-5.1); Sodium 135 mmol/L (137-145); Total Bilirubin 0.8 mg/dL (0.2-1.3); Total Protein 7.5 g/dL (6.3-8.2)
[2021-10-27 13:07] LABS: Partial Thromboplastin Time 20.9 sec (22.0-30.0)
[2021-10-27] MEDS ORDERED: NITROGLYCERIN SL TABS 0.4 MG TAB SUBLINGUAL PRN (14:19)
[2021-10-27] MEDS ORDERED: LORazepam 2 MG/ML INJ IV PRN ×3 (14:19)
[2021-10-27] MEDS ORDERED: THIAMINE 100 MG/ML 2 ML VIAL IM STA (14:19)
--- NOTE | 2021-10-27 14:25 | XR ---
EXAMINATION TYPE: XR chest 2V DATE OF EXAM: 10/27/2021 COMPARISON: Chest x-ray June 21, 2021 HISTORY: Chest pain TECHNIQUE: Frontal and lateral views of the chest are obtained. FINDINGS: Overlying sternal wires and mediastinal clips along with left atrial appendage clip are al l redemonstrated. There is no suspicious focal air space opacity, pleural effusion, or pneumothorax s een. The cardiac silhouette size is stable and within normal limits. The osseous structures are in tact. IMPRESSION: Chronic changes without acute pulmonary process. No significant change from prior.
[2021-10-27] MEDS: amLODIPine 5 MG TAB PO SCH (15:49)
[2021-10-27] MEDS: CLOPIDOGREL 75 MG TAB PO SCH (15:49)
[2021-10-27] MEDS: oxyCODONE-APAP 10-325MG 1 EACH TAB PO PRN ×2 (15:53→21:58)
[2021-10-27 16:28] LABS: Alcohol <10 mg/dL; GGT 180 U/L (15-73)
[2021-10-27] MEDS ORDERED: CALCIUM CARBONATE 500 MG CHEWABLE PO PRN (17:52)
[2021-10-27] MEDS ORDERED: ACETAMINOPHEN TAB 325 MG TAB PO PRN (17:59)
[2021-10-27] MEDS: THIAMINE 100 MG TAB PO SCH (18:01)
[2021-10-27] MEDS: NITROGLYCERIN OINT 1 INCH/GM PACKET TOPICAL SCH ×2 (18:01→23:54)
[2021-10-27] MEDS: PANTOPRAZOLE 40 MG/10 ML VIAL IVP SCH (18:34)
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
[2021-10-27] MEDS: ATORVASTATIN 10 MG TAB PO SCH (21:58)
[2021-10-27] MEDS: METOPROLOL TARTRATE 25 MG TAB PO SCH (21:58)
[2021-10-28] MEDS: NITROGLYCERIN OINT 1 INCH/GM PACKET TOPICAL SCH ×4 (06:21→23:23)
[2021-10-28] MEDS: THIAMINE 100 MG TAB PO SCH ×2 (06:21→17:33)
[2021-10-28] MEDS: oxyCODONE-APAP 10-325MG 1 EACH TAB PO PRN ×3 (06:26→20:20)
[2021-10-28] MEDS: CLOPIDOGREL 75 MG TAB PO SCH (08:52)
[2021-10-28] MEDS: PANTOPRAZOLE 40 MG/10 ML VIAL IVP SCH (08:52)
[2021-10-28] MEDS: AMIODARONE 200 MG TAB PO SCH (08:52)
[2021-10-28] MEDS: amLODIPine 5 MG TAB PO SCH (08:52)
[2021-10-28] MEDS: METOPROLOL TARTRATE 25 MG TAB PO SCH ×2 (08:52→20:20)
[2021-10-28] MEDS ORDERED: NON FORMULARY DRUG (Vitamin B Complex [Vitamin B Complex] 1 EACH Capsule) PO SCH (09:00)
[2021-10-28] MEDS ORDERED: ASPIRIN 325 MG TAB PO SCH (09:00)
[2021-10-28 11:12] LABS: Chol/HDL Ratio 3.02 Ratio; LDL Cholesterol,Calculated 69.8 mg/dL (0.0-131.0)
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
--- NOTE | 2021-10-28 13:24 | P.PN ---
Subjective Progress Note Date: 10/28/21 (Precordial chest pain medication to the elbows, good disease, history of alcohol intake) Progress note Date of service 10/28/[address] Florez Patient seen and evaluated [id number] and discussed with the patient. Patient seen by Dr. Fried cardiology today who advised him to stay one day more and they will do the echocardiogram and probably if patient stable will go home tomorrow. Vital sign: Temperature 98.2 F oral, heart rate 58-62 regular sinus, respiratory rate 1615/m nonlabored Blood pressure 120/76 ranging 146/89 and pulse ox 98% on room air Laboratories Troponin was done 3 on 10/27/21 was less than 0.012 normal with no elevation of enzymes of the heart, no alcohol resistant. Patient denied any delirium tremens in the past Currently he is not shaky and no confusion or disorientation., Yesterday lab normal renal function. On exam [id number] today Head was normocephalic and atraumatic Oropharynx natural disease Neck was supple no JVD Chest was clear to auscultation and percussion Heart was regular sinus rhythm no chest pain today and improved his chest pain GI history of GERD with the history of alcohol and has improved with the PPI IV. Abdomen is soft nontender. Bowel sounds extremities no edema and positive pulses Lipid profile was done yesterday with the triglyceride 240 hypertriglyceridemia, cholesterol was 176, LDL 69.8 and VLDL 48, HDL 58 with the ratio 3.0 to. Assessment: Chest pain precordial, History of coronary artery disease atherosclerotic heart disease, status post four-vessel bypass graft with thoracotomy. Noncompliance with medication Dyslipidemia. History of alcohol intake Plan: Continue monitor Dr. Fried although the echocardiogram and evaluated the patient and will wait for his pain and 4 and the clearance for discharge probably tomorrow also will check with cardiology in regard of his hypertriglyceridemia. If needed for further treatment Objective - Vital Signs Vital signs: Vital Signs Temp 98.2 F 10/28/21 12:20 Pulse 58 L 10/28/21 12:20 Resp 15 10/28/21 12:20 BP 120/76 10/28/21 12:20 Pulse Ox 98 10/28/21 12:20 FiO2 Intake & Output 10/27/21 10/28/21 10/28/21 18:59 06:59 18:59 Intake Total 300 Output Total 1 1 Balance 299 -1 Weight 94.801 kg 92.5 kg Intake: Oral 300 Output: Stool 1 1 Other: Voiding Method Toilet Toilet Toilet # Voids 3 - Labs CBC & Chem 7: 10/27/21 12:28 10/27/21 12:28 Labs: Abnormal Lab Results - Last 24 Hours (Table) 10/27/21 10/27/21 Range/Units 12:28 16:04 GGT 180 H (15-73) U/L Triglycerides 240.00 H (0.00-149.00) mg/dL VLDL Cholesterol, Calc 48.00 H (5.00-40.00) mg/dL
[2021-10-28 17:44] VITALS: RESP 16
[2021-10-28] MEDS: ATORVASTATIN 10 MG TAB PO SCH (20:20)
[2021-10-29] MEDS: oxyCODONE-APAP 10-325MG 1 EACH TAB PO PRN ×3 (03:46→17:11)
[2021-10-29] MEDS: NITROGLYCERIN OINT 1 INCH/GM PACKET TOPICAL SCH ×3 (06:20→17:05)
[2021-10-29] MEDS: THIAMINE 100 MG TAB PO SCH ×2 (06:21→17:05)
--- NOTE | 2021-10-29 06:53 | P.PN ---
Subjective Progress Note Date: 10/29/21 Principal diagnosis: Chest discomfort This is a pleasant 56-year-old gentleman with CAD and status post CABG as well as hypertension and dyslipidemia who presented to the hospital with atypical chest discomfort. He underwent a cardiac workup came in to be unremarkable into EKG and cardiac enzymes. Unfortunately he stopped taking his medications for about 10 days. October [id number] The patient was seen this morning. He is asymptomatic. He is hemodynamically stable. From the cardiovascular standpoint, the patient can be discharged home. Objective - Vital Signs Vital signs: Vital Signs Temp 97.6 F 10/29/21 03:42 Pulse 55 L 10/29/21 03:42 Resp 16 10/29/21 03:42 BP 126/77 10/29/21 03:42 Pulse Ox 99 10/29/21 03:42 FiO2 Intake & Output 10/28/21 10/28/21 10/29/21 06:59 18:59 06:59 Intake Total 300 360 600 Output Total 1 2 0 Balance 299 358 600 Weight 92.5 kg Intake: Oral 300 360 600 Output: Stool 1 2 0 Other: Voiding Method Toilet Toilet Toilet # Voids 3 1 2 - Constitutional General appearance: Present: no acute distress - Respiratory Respiratory: bilateral: CTA - Cardiovascular Rhythm: regular - Labs CBC & Chem 7: 10/27/21 12:28 10/27/21 12:28 Labs: Abnormal Lab Results - Last 24 Hours (Table) 10/27/21 Range/Units 12:28 Triglycerides 240.00 H (0.00-149.00) mg/dL VLDL Cholesterol, Calc 48.00 H (5.00-40.00) mg/dL Assessment and Plan Assessment: Assessment Atypical chest discomfort CAD and status post CABG Noncompliance with medications Plan The patient was ruled out for acute coronary event The patient can be discharged home from a cardiovascular standpoint overview He was advised to take his medications regularly Follow-up with the patient as an outpatient
[2021-10-29] MEDS ORDERED: PANTOPRAZOLE 40 MG TABLET PO SCH (07:30)
[2021-10-29] MEDS: METOPROLOL TARTRATE 25 MG TAB PO SCH (08:26)
[2021-10-29] MEDS: AMIODARONE 200 MG TAB PO SCH (08:26)
[2021-10-29] MEDS: CLOPIDOGREL 75 MG TAB PO SCH (08:27)
[2021-10-29] MEDS: amLODIPine 5 MG TAB PO SCH (08:27)
[2021-10-29] MEDS ORDERED: ASPIRIN 81 MG PO SCH (09:00)
--- NOTE | 2021-10-29 10:03 | CA ---
Transthoracic Echo Report Name: Valdemar Flowers Age: 56 Gender: M : 1965 Exam Date: 10/28/2021 13:25 Exam Location: [place] [facility] Ht (in): 68 Wt (lb): 203 Ordering Physician: Lanny Clay Attending/Referring Phys: Machine Cleaner Genesis Muhammad RDCS Procedure CPT: Indications: chest pain, LV function Cardiac Hx: Technical Quality: Good Contrast 1: Total Dose (mL): Contrast 2: Total Dose (mL): MEASUREMENTS (Male / Female) Normal Values 2D ECHO LV Diastolic Diameter PLAX 4.4 cm 4.2 - 5.9 / 3.9 - 5.3 cm LV Systolic Diameter PLAX 2.8 cm IVS Diastolic Thickness 1.5 cm 0.6 - 1.0 / 0.6 - 0.9 cm LVPW Diastolic Thickness 1.5 cm 0.6 - 1.0 / 0.6 - 0.9 cm LV Relative Wall Thickness 0.7 RV Internal Dim ED PLAX 3.1 cm LA Systolic Diameter LX 3.8 cm 3.0 - 4.0 / 2.7 - 3.8 cm LA Volume 67.4 cm??? 18 - 58 / 22 - 52 cm??? M-MODE Aortic Root Diameter MM 3.4 cm MV E Point Septal Separation 0.2 cm AV Cusp Separation MM 2.0 cm DOPPLER AV Peak Velocity 246.5 cm/s AV Peak Gradient 24.3 mmHg AV Mean Velocity 183.7 cm/s AV Mean Gradient 15.6 mmHg AV Velocity Time Integral 42.0 cm LVOT Peak Velocity 234.8 cm/s LVOT Peak Gradient 22.1 mmHg MV Area PHT 4.5 cm??? Mitral E Point Velocity 67.5 cm/s Mitral A Point Velocity 66.4 cm/s Mitral E to A Ratio 1.0 MV Deceleration Time 169.6 ms MV E' Velocity 7.5 cm/s Mitral E to MV E' Ratio 9.0 TR Peak Velocity 280.2 cm/s TR Peak Gradient 31.4 mmHg Right Ventricular Systolic Press 36.2 mmHg FINDINGS Left Ventricle Left ventricular ejection fraction is estimated at 65-70 %. Left ventricular cavity size normal. Moderate concentric left ventricular hypertrophy. Right Ventricle Normal right ventricular size and function. Mild pulmonary hypertension. Right Atrium Normal right atrial size. Left Atrium Mildly increased left atrial volume. Mildly increased left atrial area. No evidence for an atrial septal defect. Mitral Valve Structurally normal mitral valve. Mild to moderate mitral regurgitation. Aortic Valve Trileaflet aortic valve. No aortic valve stenosis or regurgitation. Small LVOT obstruction with mean gradirnt of 16 mmHg Tricuspid Valve Tricuspid valve not well visualized. Pulmonic Valve Trace pulmonic regurgitation. Pericardium Normal pericardium. No pericardial effusion. Aorta Normal size aortic root and proximal ascending aorta. CONCLUSIONS Normal left ventricular dimension and systolic function [id number] mitral regurgitation Small LVOT gradient Previewed by: Dr. Sal Savage MD (Electronically Signed) Final Date: 29 October 2021 10:02
[2021-10-29] MEDS ORDERED: LORazepam 1 MG/0.5 ML VIAL IV PRN ×3 (12:59→13:00)
--- NOTE | 2021-10-29 14:44 | P.DS ---
Providers Date of admission: 10/27/21 14:20 Expected date of discharge: 10/29/21 (Cleared by the cardiology for discharge) Attending physician: Filippo Florez Consults: 10/27/21 14:20 Consult Physician Urgent Consulting Provider: [facility] Consult Reason/Comments: Chest pain Do you want consulting provider notified?: Yes Primary care physician: Filippo Florez Discharge summary Dictation by Dr. Goodwin Final diagnoses: Acute chest pain #1 #2 noncompliance to medication #3 history of alcohol intake. #4 coronary artery disease atherosclerotic heart disease. #5 status post 4 vessel coronary artery bypass graft. #6 history of alcohol addiction. Procedure echocardiogram by Dr. Fried. Cleared by Dr. Savage/discharge. Presentation in the emergency room with chest pain and transferred from [facility]. Patient was past history of coronary artery disease 4 vessel bypass and noncompliance with medication. Patient seen and evaluated on discharge Dr. Fried also seen the patient on the discharge and cleared for discharge On exam Temperature 97.7 F oral pulse 75 and blood pressure 141/66 Oxygen saturation 98% on room air. Head was normocephalic and atraumatic pupil was equal reactive, oropharynx natural teeth Neck was supple no JVD no thyromegaly no lymphadenopathy. Chest clear to auscultation and percussion Heart regular sinus rhythm no chest pain. Abdomen is soft positive bowel sounds no tenderness in the 4 quadrant Extremities no edema and positive pulses Neuropsychiatry and addiction, he should be going back to [facility] for cessation of alcohol intake and discussed the compliance with the patient Neurologically ambulatory no lateralizing sign stable. Patient stable on discharge Patient will be discharged today as he cleared by cardiology Dr. Fried. Plan - Discharge Summary Discharge Rx Participant: No New Discharge Prescriptions: Continue Aspirin 81 mg PO DAILY #30 chew Vitamin B Complex 1 tab PO DAILY Clopidogrel [Plavix] 75 mg PO DAILY #30 tab Amiodarone [Cordarone] 400 mg PO DAILY oxyCODONE-APAP 10-325MG [Percocet 10-325 mg] 1 tab PO Q6HR PRN 7 Days #28 tab PRN Reason: Pain amLODIPine BESYLATE 5 mg PO DAILY #30 tab Discontinued Rosuvastatin Calcium [Crestor] 5 mg PO HS #30 tab Meloxicam [Mobic] 15 mg PO DAILY Discharge Medication List Aspirin 81 mg PO DAILY #30 chew 08/10/20 [Rx] Vitamin B Complex 1 tab PO DAILY 02/25/21 [History] oxyCODONE-APAP 10-325MG [Percocet 10-325 mg] 1 tab PO Q6HR PRN 7 Days #28 tab [Rx] Clopidogrel [Plavix] 75 mg PO DAILY #30 tab 05/22/21 [Rx] amLODIPine BESYLATE 5 mg PO DAILY #30 tab 05/22/21 [Rx] Amiodarone [Cordarone] 400 mg PO DAILY 10/27/21 [History] Follow up Appointment(s)/Referral(s): Sal Savage MD [STAFF PHYSICIAN] - 1 Week Filippo Florez MD [Primary Care Provider] - 1-2 days Activity/Diet/Wound Care/Special Instructions: Call [place] [phone] for transport back Discharge Disposition: HOME SELF-CARE
[2021-10-29 17:07] VITALS: BP 135/85; PULSE 69; TEMP 98.9
== END 2021-10-29 21:50 | DRG 313 ==
LOC: EC 12:00 → 3SCARD 14:20
PROVIDERS: ADMIT Internal Medicine; ATTEND Internal Medicine
DX: R07.89 Other chest pain (principal); F10.20 Alcohol dependence, uncomplicated; J44.9 Chronic obstructive pulmonary disease, unspecified; I48.91 Unspecified atrial fibrillation; T50.916A Underdosing of multiple unspecified drugs, medicaments and biological substances, initial encounter; Z91.128 Patient's intentional underdosing of medication regimen for other reason; Z28.311 Partially vaccinated for COVID-19; I25.10 Atherosclerotic heart disease of native coronary artery without angina pectoris; I10 Essential (primary) hypertension; E78.1 Pure hyperglyceridemia; G89.29 Other chronic pain; M48.07 Spinal stenosis, lumbosacral region; M54.9 Dorsalgia, unspecified; M54.2 Cervicalgia; F32.A Depression, unspecified; F41.9 Anxiety disorder, unspecified; Y90.0 Blood alcohol level of less than 20 mg/100 ml; M19.90 Unspecified osteoarthritis, unspecified site; F17.290 Nicotine dependence, other tobacco product, uncomplicated; Z79.82 Long term (current) use of aspirin; Z79.02 Long term (current) use of antithrombotics/antiplatelets; Z79.1 Long term (current) use of non-steroidal anti-inflammatories (NSAID); Z79.899 Other long term (current) drug therapy; Z71.41 Alcohol abuse counseling and surveillance of alcoholic; Z95.1 Presence of aortocoronary bypass graft; Z82.49 Family history of ischemic heart disease and other diseases of the circulatory system
CPT/HCPCS: 36415; 71046; 80053; 80061; 80320; 82075; 82977; 83735; 84484; 85025; 85610; 85730; 93005; 93306; 94760; 96372; 99285

== ENCOUNTER 2021-11-02 14:58 | Emergency (ER) | payer OTHER ==
[2021-11-02 15:05] VITALS: RESP 16; TEMP 100.2
[2021-11-02] MEDS ORDERED: SODIUM CHLORIDE 0.9% 1,000 ML IV STA (16:11)
[2021-11-02] MEDS ORDERED: KETOROLAC 15 MG/ML 1 ML VIAL IVP STA (16:11)
[2021-11-02] MEDS ORDERED: VANCOMYCIN 1,500 MG in SODIUM CHLORIDE 0.9% 250 ML IVPB STA (16:14)
[2021-11-02 16:53] LABS: Basophils # (A) 0.1 k/uL (0-0.2); Basophils % (A) 1 %; Eosinophils # (A) 0.2 k/uL (0-0.7); Eosinophils % (A) 1 %; HCT 38.4 % (39.0-53.0); HGB 12.8 gm/dL (13.0-17.5); Lymphocytes % (A) 10 %; MCH 30.5 pg (25.0-35.0); MCHC 33.4 g/dL (31.0-37.0); MCV 91.4 fL (80.0-100.0); Mean Platelet Volume 7.8; Monocytes # (A) 0.7 k/uL (0-1.0); Monocytes % (A) 7 %; Neutrophils # (A) 8.3 k/uL (1.3-7.7); Neutrophils % (A) 80 %; Platelet Count 242 k/uL (150-450); RDW 13.5 % (11.5-15.5); WBC 10.4 k/uL (3.8-10.6)
[2021-11-02 17:03] LABS: ALT 27 U/L (4-49); AST 39 U/L (17-59); African American GFR (CKD) >90 (>60 ml/min/1.73 sqM); Albumin 4.7 g/dL (3.5-5.0); Alkaline Phosphatase 57 U/L (38-126); Anion Gap 13 mmol/L; Blood Urea Nitrogen 17 mg/dL (9-20); Carbon Dioxide 23 mmol/L (22-30); Chloride 102 mmol/L (98-107); Glucose 92 mg/dL (74-99); Non-African American GFR(CKD) 89 (>60 ml/min/1.73 sqM); Sodium 138 mmol/L (137-145); Total Bilirubin 0.7 mg/dL (0.2-1.3); Total Protein 7.1 g/dL (6.3-8.2)
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
--- NOTE | 2021-11-02 17:42 | US ---
EXAMINATION TYPE: US venous doppler duplex UE LT DATE OF EXAM: 11/02/2021 COMPARISON: NONE CLINICAL HISTORY: pain/swelling, recent IV. swelling and redness above left elbow. Patient had an IV in that arm on Sunday. SIDE PERFORMED: Left Left Arm: Negative for DVT. Echoes seen in cephalic vein above elbow in area of swelling and redness. Grayscale, color doppler, spectral doppler imaging performed of the deep veins of the upper extremiti es. There is normal flow, compressibility and vascular waveforms. IMPRESSION: 1. No evidence of deep vein thrombosis of the left upper extremity. 2. Low-level echoes in the left cephalic vein suggestive of thrombophlebitis.
[2021-11-02] MEDS ORDERED: cefTRIAXone 1,000 MG VIAL (IM USE) IM STA (18:41)
[2021-11-02 21:15] VITALS: BP 146/79; PULSE 82
[2021-11-03] MEDS ORDERED: VANCOMYCIN 1,500 MG in SODIUM CHLORIDE 0.9% 250 ML IVPB SCH (05:00)
== END 2021-11-02 21:15 | disposition home or self-care (01) ==
LOC: EC 14:58
DX: I80.8 Phlebitis and thrombophlebitis of other sites (principal); I48.91 Unspecified atrial fibrillation; J44.9 Chronic obstructive pulmonary disease, unspecified; I10 Essential (primary) hypertension; Z87.891 Personal history of nicotine dependence; Z79.899 Other long term (current) drug therapy; Z79.82 Long term (current) use of aspirin
CPT/HCPCS: 99284 ×2; 96365 ×2; 96372 ×2; 96375 ×2; 36415; 80053; 83605; 85025; 87040; 87070; 87205; 87077; 87186; 93971; J3370; J0696; J1885

== ENCOUNTER → 2022-09-21 | Outpatient (CLI) | payer OTHER ==
--- NOTE | 2022-09-23 09:59 | MR ---
EXAMINATION TYPE: MR cervical spine wo con DATE OF EXAM: 09/21/2022 INDICATION: Patient age: Male; 57 years old; Reason for study: SPONDYLOSIS M47.812; . Neck pain that radiates into arms and hands. COMPARISON: 07/27/2021 05/31/2018 TECHNIQUE: Multi planar, multi sequence imaging was performed utilizing: T1-weighted, T2-weighted, an d turbo inversion recovery imaging of the cervical spine. IV Contrast: None FINDINGS: Alignment: The cervical vertebral bodies have preserved heights. Alignment is within normal limits gi meghana patient positioning. Bones: Scattered Modic endplate changes with osteophytes and disc space narrowing. Multilevel degener ative disc disease is noted and most pronounced at the C5-C7 vertebral levels. Cord: The spinal cord is unremarkable with regards to their signal intensity and morphology. Discs: Multilevel disc desiccation is present. C2-C3: No significant disc pathology. The spinal canal is patent. No neural foraminal stenosis. C3-C4: No significant disc pathology. The spinal canal is patent. No neural foraminal stenosis. C4-C5: A disc osteophyte complex is present which minimally narrows the ventral subarachnoid space. Bilateral facet and uncovertebral joint arthropathy are present with mild right neural foraminal kyara nosis. The left neural foramen is patent. C5-C6: No significant disc pathology. The spinal canal is patent. Bilateral facet and uncovertebral joint arthropathy are present with moderate to severe right and moderate left neural foraminal stenos is. C6-C7: A disc osteophyte complex is present with mild spinal canal stenosis. Osteophyte complex impre sses upon the right spinal cord. Spinal cord signal is maintained. Bilateral facet and uncovertebral joint arthropathy are present with mild to moderate bilateral neural foraminal stenosis. C7-T1: No significant disc pathology. The spinal canal is patent. No neural foraminal stenosis. Other: None. IMPRESSION: 1. Overall degeneration changes appear similar to prior on 07/17/2021. No areas of significant spinal canal stenosis. 2. Multilevel degeneration changes worse at C5-C6 with moderate to severe right and moderate left ne ural foraminal stenosis.
== END | disposition home or self-care (01) ==
LOC: RADMRIMAIN 16:05
PROVIDERS: ATTEND Neurological Surgery
DX: M47.812 Spondylosis without myelopathy or radiculopathy, cervical region (principal); M99.71 Connective tissue and disc stenosis of intervertebral foramina of cervical region
CPT/HCPCS: 72141

== ENCOUNTER 2022-09-26 21:51 | Observation (INO) | payer OTHER ==
[2022-09-26] MEDS ORDERED: ASPIRIN 81 MG PO STA ×2 (22:58→23:25)
[2022-09-26] MEDS ORDERED: NITROGLYCERIN SL TABS 0.4 MG TAB SUBLINGUAL STA ×2 (22:58→23:25)
[2022-09-26] MEDS ORDERED: MORPHINE SULFATE 4 MG/ML SYRINGE IV STA (23:25)
[2022-09-26 23:30] LABS: Basophils % (A) 1 %; Eosinophils % (A) 1 %; HCT 43.8 % (39.0-53.0); HGB 15.1 gm/dL (13.0-17.5); Lymphocytes # (A) 1.9 k/uL (1.0-4.8); Lymphocytes % (A) 31 %; MCHC 34.5 g/dL (31.0-37.0); MCV 92.7 fL (80.0-100.0); Mean Platelet Volume 7.1; Monocytes # (A) 0.4 k/uL (0-1.0); Monocytes % (A) 6 %; Neutrophils # (A) 3.6 k/uL (1.3-7.7); Neutrophils % (A) 60 %; Platelet Count 241 k/uL (150-450); RBC 4.73 m/uL (4.30-5.90); RDW 13.8 % (11.5-15.5); WBC 6.1 k/uL (3.8-10.6)
[2022-09-26 23:39] LABS: Partial Thromboplastin Time 23.1 sec (22.0-30.0); Prothrombin Time 10.6 sec (9.0-12.0)
[2022-09-26 23:49] LABS: ALT 58 U/L (4-49); AST 102 U/L (17-59); African American GFR (CKD) 78 (>60 ml/min/1.73 sqM); Albumin 4.8 g/dL (3.5-5.0); Alkaline Phosphatase 53 U/L (38-126); Amylase 66 U/L (30-110); Anion Gap 13 mmol/L; Blood Urea Nitrogen 17 mg/dL (9-20); Calcium 9.4 mg/dL (8.4-10.2); Carbon Dioxide 29 mmol/L (22-30); Chloride 99 mmol/L (98-107); Glucose 112 mg/dL (74-99); Lipase 284 U/L (23-300); Magnesium 1.8 mg/dL (1.6-2.3); Non-African American GFR(CKD) 67 (>60 ml/min/1.73 sqM); Potassium 4.1 mmol/L (3.5-5.1); Sodium 141 mmol/L (137-145); Total Bilirubin 0.7 mg/dL (0.2-1.3); Total Protein 7.6 g/dL (6.3-8.2)
[2022-09-27 00:08] LABS: Alcohol 255 mg/dL
--- NOTE | 2022-09-27 00:20 | XR ---
EXAM: XR Chest, 2 Views CLINICAL HISTORY: ITS.REASON XR Reason: Chest Pain TECHNIQUE: Frontal and lateral views of the chest. COMPARISON: No relevant prior studies available. FINDINGS: Lungs: Unremarkable. No consolidation. Pleural space: Unremarkable. No pneumothorax. Heart: Unremarkable. No cardiomegaly. Mediastinum: Unremarkable. Bones/joints: Sternotomy wires. Soft tissues: Appendage clip. IMPRESSION: No acute findings in the chest.
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
[2022-09-27] MEDS ORDERED: NITROGLYCERIN SL TABS 0.4 MG TAB SUBLINGUAL PRN (00:55)
[2022-09-27] MEDS ORDERED: ONDANSETRON 4 MG/2 ML VIAL IVP STA (01:49)
[2022-09-27] MEDS ORDERED: oxyCODONE-APAP 5-325MG 1 EACH TAB PO STA (02:29)
[2022-09-27] MEDS: NICOTINE 14MG/24HR PATCH TRANSDERM SCH ×2 (02:55→08:19)
[2022-09-27] MEDS: ONDANSETRON 4 MG/2 ML VIAL IVP PRN ×3 (09:30→21:42)
[2022-09-27] MEDS: CLOPIDOGREL 75 MG TAB PO SCH (12:59)
[2022-09-27] MEDS: AMIODARONE 100 MG TAB PO SCH (12:59)
[2022-09-27] MEDS: ATORVASTATIN 10 MG TAB PO SCH ×2 (13:00)
[2022-09-27] MEDS: CHLORTHALIDONE 25 MG TAB PO SCH (13:01)
[2022-09-27] MEDS: METOPROLOL TARTRATE 25 MG TAB PO SCH ×2 (13:01→21:42)
[2022-09-27] MEDS: AMITRIPTYLINE HCL 25 MG TAB PO SCH (13:01)
[2022-09-27] MEDS: lisinopriL 5 MG TAB PO SCH (13:01)
[2022-09-27] MEDS: MAGNESIUM OXIDE 400 MG TAB PO SCH (13:01)
[2022-09-27] MEDS ORDERED: CLOPIDOGREL 75 MG TAB PO SCH (15:45)
[2022-09-27] MEDS ORDERED: AMITRIPTYLINE HCL 25 MG TAB PO SCH (15:45)
[2022-09-27] MEDS ORDERED: lisinopriL 5 MG TAB PO SCH (15:45)
[2022-09-27] MEDS ORDERED: NON FORMULARY DRUG (Aspirin Ec 81 MG Tablet) PO SCH (15:45)
[2022-09-27] MEDS ORDERED: AMIODARONE 100 MG TAB PO SCH (15:45)
[2022-09-27] MEDS ORDERED: CHLORTHALIDONE 25 MG TAB PO SCH (15:45)
[2022-09-27] MEDS ORDERED: NON FORMULARY DRUG (Rosuvastatin Calcium [Rosuvastatin Calcium] 5 MG Tablet) PO SCH (15:45)
[2022-09-27] MEDS ORDERED: MAGNESIUM OXIDE 400 MG TAB PO SCH (15:45)
[2022-09-27] MEDS: hydrALAZINE HCL 50 MG TAB PO SCH ×2 (16:00→23:53)
[2022-09-27] MEDS: LIDOCAINE 5% PATCH TOPICAL SCH (18:34)
[2022-09-27] MEDS: ACETAMINOPHEN TAB 325 MG TAB PO PRN ×2 (18:35→23:55)
--- NOTE | 2022-09-27 20:25 | HP ---
HISTORY AND PHYSICAL CHIEF COMPLAINT: Chest pain. HISTORY OF PRESENT ILLNESS: This is another admission for this 57-year-old male with a history of heart disease, who came to the emergency room intoxicated. He actually described the pain as being more in the left anterior chest or breast area. He had no shortness of breath, diaphoresis, or radiation of the pain. His blood pressure was also elevated. REVIEW OF SYSTEMS: He had no other symptoms. Past medical history, family history, and personal and social histories were otherwise unremarkable. He had been nauseated and vomiting over the last several days, which was likely related to his alcoholism. PHYSICAL EXAMINATION: VITAL SIGNS: Blood pressure 174/123 with a pulse of 93, respirations of 35. He is afebrile. GENERAL: He appeared to be intoxicated. Face was flushed. HEAD, EARS, EYES, NOSE, AND MOUTH: Normal. CHEST: Clear. Chest wall is nontender. CARDIAC: Demonstrates sinus tachycardia. ABDOMEN: Slightly protuberant, soft, and slightly tender over the epigastrium. There are no masses or visceromegaly. Bowel sounds are present. EXTREMITIES: Normal. NEUROLOGIC: He is intact. IMPRESSION: 1. Chest pain. 2. History of coronary artery disease. 3. Acute alcohol intoxication. 4. Hypertension. PLAN: 1. Bedrest. 2. IV fluids. 3. Serial EKGs and enzymes. 4. Control hypertension. 5. Watch for DTs. MMODL / IJN: [id number] /
[2022-09-27] MEDS ORDERED: METOPROLOL TARTRATE 25 MG TAB PO SCH (21:00)
[2022-09-27] MEDS ORDERED: diphenhydrAMINE 25 MG CAP PO STA (21:02)
[2022-09-27] MEDS ORDERED: GABAPENTIN 100 MG CAP PO STA (21:03)
[2022-09-28] MEDS ORDERED: TEMAZEPAM 15 MG CAP PO ONE (00:20)
[2022-09-28] MEDS ORDERED: TEMAZEPAM 7.5 MG CAP PO ONE (01:15)
[2022-09-28] MEDS ORDERED: ASPIRIN 325 MG TAB PO SCH (09:00)
[2022-09-28] MEDS: METOPROLOL TARTRATE 25 MG TAB PO SCH ×2 (09:42→20:33)
[2022-09-28] MEDS: MAGNESIUM OXIDE 400 MG TAB PO SCH (09:43)
[2022-09-28] MEDS: lisinopriL 5 MG TAB PO SCH (09:43)
[2022-09-28] MEDS: AMIODARONE 100 MG TAB PO SCH (09:43)
[2022-09-28] MEDS: CHLORTHALIDONE 25 MG TAB PO SCH (09:43)
[2022-09-28] MEDS: NICOTINE 14MG/24HR PATCH TRANSDERM SCH (09:43)
[2022-09-28] MEDS: AMITRIPTYLINE HCL 25 MG TAB PO SCH (09:43)
[2022-09-28] MEDS: LIDOCAINE 5% PATCH TOPICAL SCH (09:43)
[2022-09-28] MEDS: ATORVASTATIN 10 MG TAB PO SCH (09:43)
[2022-09-28] MEDS: CLOPIDOGREL 75 MG TAB PO SCH (09:43)
[2022-09-28] MEDS: hydrALAZINE HCL 50 MG TAB PO SCH ×3 (11:01→20:33)
[2022-09-28] MEDS: ONDANSETRON 4 MG/2 ML VIAL IVP PRN (11:04)
[2022-09-28 11:15] LABS: Chol/HDL Ratio 3.33 Ratio; HDL Cholesterol 56.1 mg/dL (40.00-60.00); LDL Cholesterol,Calculated 36.3 mg/dL (0.0-131.0); VLDL Calculation 94.6 mg/dL (5.00-40.00)
[2022-09-28 11:25] LABS: LDL Cholesterol,Direct Reflex 80.6 mg/dL (0.00-129.00)
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
[2022-09-28] MEDS ORDERED: LORazepam 2 MG/ML INJ IV PRN (13:24)
[2022-09-28] MEDS ORDERED: ACETAMINOPHEN TAB 325 MG TAB PO PRN (13:26)
[2022-09-28] MEDS: chlordiazePOXIDE 25 MG CAP PO SCH ×2 (14:10→20:33)
[2022-09-28] MEDS ORDERED: LOPERAMIDE 2 MG CAP PO PRN (16:13)
[2022-09-28] MEDS: LORazepam 1 MG TAB PO PRN ×2 (17:05→23:34)
[2022-09-28] MEDS: KETOROLAC 15 MG/ML 1 ML VIAL IVP PRN ×2 (17:05→22:26)
--- NOTE | 2022-09-28 21:13 | P.PN ---
Subjective Progress Note Date: 09/28/22 This is a 57-year-old male who follows with Dr. Martini in the outpatient setting with a significant past medical history of coronary artery disease who presented to the emergency department with chest pain as well as acute alcohol intoxication. Patient continues to report chest pain and cardiology consulted and has ordered a 2-D echo which is currently pending. Patient's alcohol level was above 200 on admission and is having some restless legs along with some nausea and concern for acute alcohol withdrawal. CIWA is being added and will continue with Librium as well. Patient continues to report back pain and neck pain and reports he is not able to receive narcotics because he in July had been heavily drinking and did a line of cocaine and was removed from pain contract and being able to receive any narcotics. Patient continues to report significant pain and will add IV Toradol. Continue Tylenol as well. Patient is afebrile with no reports of chest pain or shortness of breath. Patient is continued on telemetry monitoring and will await 2-D echo and cardiology recommendations. Review of systems: Constitutional: No reports of fatigue, fever, or chills Cardiovascular: No reports of chest pain or palpitations Respiratory: No reports of shortness of breath or cough GI: reports of nausea, no reports of vomiting, patient reports diarrhea : No reports of dysuria or retention Neurovascular: No reports of generalized weakness, reports continued back and neck pain which is chronic All medications have been reviewed PHYSICAL EXAMINATION: GENERAL: The patient is alert and oriented x4, Well developed, well nourished. Obese. HEENT: Pupils are round and equally reacting to light. EOMI. no scleral icterus. No conjunctival pallor. Normocephalic, atraumatic. No pharyngeal erythema. No thyromegaly. CARDIOVASCULAR: S1 and S2 muffled PULMONARY: diminished breath sounds bilaterally with no wheezing or rhonchi noted. ABDOMEN: soft. Nontender on exam. obese. non-distended, normoactive bowel sounds. No palpable organomegaly. MUSCULOSKELETAL: No joint swelling or deformity. EXTREMITIES: No cyanosis, clubbing, or pedal edema. NEUROLOGICAL: Gross neurological examination did not reveal any focal deficits. SKIN: No rashes. Assessment: Chest pain, ruled out ACS History of coronary artery disease Acute alcohol intoxication with concerns of acute alcohol withdrawal Hypertension history Chronic neck and back pain Previous history of noncompliance with pain medications History of cocaine use GI prophylaxis DVT prophylaxis Full code Plan: Patient is continued on telemetry monitoring awaiting 2-D echo with cardiology following Patient also came in with an alcohol level above 200 and is showing some mild symptoms including nausea, diarrhea, some restless legs will add CIWA protocol and monitor for any withdrawals Encouraged increased activity as tolerated Will add Imodium for the diarrhea and continue with anti-nausea medications Avoid narcotics for primary care provider and added Toradol Will follow-up with cardiology and discuss possible discharge planning in the next 24-48 hours The impression and plan of care has been dictated by Roxane Gomez, nurse practitioner as directed. Dr. Jules MD I have performed a history and examination and MDM of this patient, discussed the same with the dictator, and agree with the dictator's assessment and plan as written ,documented as a scribe. Based on total visit time, I have performed more than 50% of the visit. Any additional findings or plans will be noted. Objective - Vital Signs Vital signs: Vital Signs Temp 97.6 F 09/28/22 07:00 Pulse 71 09/28/22 07:00 Resp 14 09/28/22 07:00 BP 120/77 09/28/22 07:00 Pulse Ox 98 09/28/22 08:41 FiO2 21 09/28/22 08:41 Intake & Output 09/27/22 09/28/22 09/28/22 18:59 06:59 18:59 Other: Voiding Method Toilet # Voids 2 - Labs CBC & Chem 7: 09/26/22 23:11 09/26/22 23:11
[2022-09-28] MEDS: LORazepam 2 MG/ML INJ IV PRN (22:26)
[2022-09-29] MEDS: LORazepam 1 MG TAB PO PRN ×2 (03:27→08:51)
[2022-09-29] MEDS: KETOROLAC 15 MG/ML 1 ML VIAL IVP PRN ×2 (04:23→10:29)
[2022-09-29] MEDS: LORazepam 2 MG/ML INJ IV PRN (04:23)
[2022-09-29 07:32] VITALS: BP 110/72; PULSE 72; RESP 18; TEMP 97.5
[2022-09-29] MEDS: hydrALAZINE HCL 50 MG TAB PO SCH (08:00)
[2022-09-29] MEDS: lisinopriL 5 MG TAB PO SCH (08:00)
[2022-09-29] MEDS: AMIODARONE 100 MG TAB PO SCH (08:00)
[2022-09-29] MEDS: AMITRIPTYLINE HCL 25 MG TAB PO SCH (08:00)
[2022-09-29] MEDS: CHLORTHALIDONE 25 MG TAB PO SCH (08:00)
[2022-09-29] MEDS: NICOTINE 14MG/24HR PATCH TRANSDERM SCH (08:01)
[2022-09-29] MEDS: CLOPIDOGREL 75 MG TAB PO SCH (08:41)
[2022-09-29] MEDS: ATORVASTATIN 10 MG TAB PO SCH (08:41)
[2022-09-29] MEDS: LIDOCAINE 5% PATCH TOPICAL SCH (08:41)
[2022-09-29] MEDS: MAGNESIUM OXIDE 400 MG TAB PO SCH (08:41)
[2022-09-29] MEDS: chlordiazePOXIDE 25 MG CAP PO SCH (08:41)
[2022-09-29] MEDS: METOPROLOL TARTRATE 25 MG TAB PO SCH (08:41)
[2022-09-29] MEDS: ONDANSETRON 4 MG/2 ML VIAL IVP PRN (08:51)
[2022-09-29] MEDS ORDERED: ASPIRIN 81 MG PO SCH (09:00)
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
--- NOTE | 2022-09-29 11:04 | CA ---
Transthoracic Echo Report Name: Valdemar Flowers Age: 57 Gender: M : 1965 Exam Date: 09/29/2022 08:05 Exam Location: [facility] Ht (in): 68 Wt (lb): 204 Ordering Physician: Anamaria Arechiga Attending/Referring Phys: [id number], Geni Generator Repairer Genesis Muhammad, JOVON Procedure CPT: Indications: CP, LV function Cardiac Hx: Hx of CABG Technical Quality: Good Contrast 1: Total Dose (mL): Contrast 2: Total Dose (mL): MEASUREMENTS (Male / Female) Normal Values 2D ECHO LV Diastolic Diameter PLAX 4.8 cm 4.2 - 5.9 / 3.9 - 5.3 cm LV Systolic Diameter PLAX 3.4 cm IVS Diastolic Thickness 1.5 cm 0.6 - 1.0 / 0.6 - 0.9 cm LVPW Diastolic Thickness 1.5 cm 0.6 - 1.0 / 0.6 - 0.9 cm LV Relative Wall Thickness 0.6 RV Internal Dim ED PLAX 3.3 cm LA Systolic Diameter LX 3.9 cm 3.0 - 4.0 / 2.7 - 3.8 cm LV Diastolic Volume MOD 4C 75.9 cm??? LV Systolic Volume MOD 4C 35.4 cm??? LV Ejection Fraction MOD 4C 53.4 % LV Cardiac Index MOD 4C 1273.6 cm???/min???m??? LV Diastolic Length 4C 8.4 cm LV Systolic Length 4C 7.5 cm LV Diastolic Volume MOD 2C 59.4 cm??? LV Systolic Volume MOD 2C 21.6 cm??? LV Ejection Fraction MOD 2C 63.6 % LV Cardiac Index MOD 2C 1186.5 cm???/min???m??? LV Diastolic Length 2C 7.7 cm LV Systolic Length 2C 6.5 cm LA Volume 46.6 cm??? 18 - 58 / 22 - 52 cm??? M-MODE Aortic Root Diameter MM 3.4 cm MV E Point Septal Separation 0.9 cm AV Cusp Separation MM 2.0 cm DOPPLER AV Peak Velocity 194.2 cm/s AV Peak Gradient 15.1 mmHg AV Mean Velocity 135.2 cm/s AV Mean Gradient 8.3 mmHg AV Velocity Time Integral 33.1 cm LVOT Peak Velocity 187.6 cm/s LVOT Peak Gradient 14.1 mmHg MV Area PHT 2.4 cm??? Mitral E Point Velocity 57.1 cm/s Mitral A Point Velocity 57.1 cm/s Mitral E to A Ratio 1.0 MV Deceleration Time 321.8 ms MV E' Velocity 4.6 cm/s Mitral E to MV E' Ratio 12.4 TR Peak Velocity 249.2 cm/s TR Peak Gradient 24.8 mmHg Right Ventricular Systolic Press 29.8 mmHg FINDINGS Left Ventricle Left ventricular ejection fraction is estimated at 55-60 %. Left ventricular cavity size normal. Moderately increased septal wall thickness. Right Ventricle Mild right ventricular dilatation. Right ventricular systolic pressure within normal limits. Right Atrium Normal right atrial size. Left Atrium Normal left atrial size. Mitral Valve Structurally normal mitral valve. Aortic Valve Trileaflet aortic valve. No aortic valve stenosis or regurgitation. There is increase 8 mmHg mean gradient accross LVOT Tricuspid Valve Structurally normal tricuspid valve. Mild tricuspid regurgitation. Pulmonic Valve Pericardium Aorta CONCLUSIONS Normal LV systolic function Previewed by: Dr. Lc Branch MD (Electronically Signed) Final Date: 29 September 2022 11:03
== END 2022-09-29 13:33 | disposition home or self-care (01) ==
LOC: EC 21:51 → 6NMEDSUR 09-27 00:55
PROVIDERS: ADMIT Family Medicine; ATTEND Family Medicine
DX: R07.89 Other chest pain (principal); F10.129 Alcohol abuse with intoxication, unspecified; R77.8 Other specified abnormalities of plasma proteins; I10 Essential (primary) hypertension; J44.9 Chronic obstructive pulmonary disease, unspecified; I25.10 Atherosclerotic heart disease of native coronary artery without angina pectoris; I48.91 Unspecified atrial fibrillation; I27.20 Pulmonary hypertension, unspecified; I34.0 Nonrheumatic mitral (valve) insufficiency; G25.81 Restless legs syndrome; E78.5 Hyperlipidemia, unspecified; M19.90 Unspecified osteoarthritis, unspecified site; F32.A Depression, unspecified; F41.9 Anxiety disorder, unspecified; G89.29 Other chronic pain; M54.2 Cervicalgia; M54.9 Dorsalgia, unspecified; R11.2 Nausea with vomiting, unspecified; R00.0 Tachycardia, unspecified; M25.522 Pain in left elbow; Z91.148 Patient's other noncompliance with medication regimen for other reason; F17.290 Nicotine dependence, other tobacco product, uncomplicated; Z79.82 Long term (current) use of aspirin; Z79.02 Long term (current) use of antithrombotics/antiplatelets; Z79.899 Other long term (current) drug therapy; Z90.49 Acquired absence of other specified parts of digestive tract; Z95.1 Presence of aortocoronary bypass graft; Z87.898 Personal history of other specified conditions; Z98.890 Other specified postprocedural states; Z82.49 Family history of ischemic heart disease and other diseases of the circulatory system; Z80.41 Family history of malignant neoplasm of ovary
CPT/HCPCS: 96376 ×4; 96375 ×2; 96374; 99285; 36415; 94760 ×2; 93005; 93306; 80061; 80053; 82150; 83690; 83735; 84484 ×2; 85025; 85610; 85730; 83721; 71046; G0378 ×3; G0480; S4990 ×3; J2060 ×2; J2270; J2405 ×3; J1885 ×2; 80320

== ENCOUNTER → 2022-10-03 | Outpatient (CLI) | payer OTHER ==
--- NOTE | 2022-10-03 18:53 | MR ---
EXAMINATION TYPE: MR lumbar spine wo con DATE OF EXAM: 10/03/2022 COMPARISON: 07/27/2021 HISTORY: Low back pain into lolita lower extremities TECHNIQUE: Multiplanar, multisequence images of the lumbar spine were acquired without IV contrast. L1-L2: Normal disc appearance without desiccation. No herniation, protrusion or disc bulging. No ca nal stenosis is present. Foramina are patent bilaterally. L2-L3: Normal disc appearance without desiccation. No herniation, protrusion or disc bulging. No ca nal stenosis is present. Foramina are patent bilaterally. L3-L4: Normal disc appearance without desiccation. No herniation, protrusion or disc bulging. No ca nal stenosis is present. Foramina are patent bilaterally. L4-L5: Normal disc appearance without desiccation. No herniation, protrusion or disc bulging. No ca nal stenosis is present. Foramina are patent bilaterally. L5-S1: Mild decreased signal and loss of height L5-S1 compatible with degenerative disc disease. Smal l disc bulge and annular tear. No evidence for jitendra disc herniation. No central stenosis. Foramina a re patent bilaterally. Lumbar segments are intact. No paraspinal masses are identified. Conus medullaris has a normal appe arance. IMPRESSION: Mild degenerative disc disease with minimal posterior disc bulge and small annular tear L5-S1.
== END | disposition home or self-care (01) ==
LOC: RADMRIMAIN 15:18
PROVIDERS: ATTEND Neurological Surgery
DX: M47.816 Spondylosis without myelopathy or radiculopathy, lumbar region (principal); M51.36 Other intervertebral disc degeneration, lumbar region; M51.87 Other intervertebral disc disorders, lumbosacral region
CPT/HCPCS: 72148

== ENCOUNTER 2022-10-07 17:18 | Emergency (ER) | payer OTHER ==
[2022-10-07] MEDS ORDERED: DIPH,PERTUS(ACELL)TETVAC-LF 0.5 ML VIAL IM ONE (17:22)
[2022-10-07 17:28] LABS: Glucose,Whole Blood 109 mg/dL (70-110)
[2022-10-07 17:38] VITALS: RESP 18
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
[2022-10-07 18:06] LABS: Basophils % (A) 0 %; Eosinophils # (A) 0.1 k/uL (0-0.7); Eosinophils % (A) 1 %; HGB 13.2 gm/dL (13.0-17.5); Lymphocytes # (A) 1.5 k/uL (1.0-4.8); Lymphocytes % (A) 26 %; MCH 31.8 pg (25.0-35.0); MCHC 33.7 g/dL (31.0-37.0); MCV 94.2 fL (80.0-100.0); Mean Platelet Volume 7.6; Monocytes # (A) 0.3 k/uL (0-1.0); Monocytes % (A) 6 %; Neutrophils # (A) 3.8 k/uL (1.3-7.7); Neutrophils % (A) 65 %; Platelet Count 259 k/uL (150-450); RBC 4.14 m/uL (4.30-5.90); RDW 13.9 % (11.5-15.5); WBC 5.8 k/uL (3.8-10.6)
[2022-10-07] MEDS ORDERED: HYDROmorphone 0.5 MG/0.5 ML SYRINGE IVP STA ×3 (18:08→19:55)
[2022-10-07] MEDS ORDERED: LORazepam 2 MG/ML INJ IV STA (18:09)
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
[2022-10-07 18:13] LABS: Partial Thromboplastin Time 22.1 sec (22.0-30.0); Prothrombin Time 10.2 sec (9.0-12.0)
[2022-10-07 18:27] LABS: ALT 56 U/L (4-49); AST 83 U/L (17-59); African American GFR (CKD) 76 (>60 ml/min/1.73 sqM); Alkaline Phosphatase 43 U/L (38-126); Anion Gap 9 mmol/L; Blood Urea Nitrogen 10 mg/dL (9-20); Calcium 8.7 mg/dL (8.4-10.2); Carbon Dioxide 25 mmol/L (22-30); Chloride 104 mmol/L (98-107); Glucose 98 mg/dL (74-99); Non-African American GFR(CKD) 66 (>60 ml/min/1.73 sqM); Sodium 138 mmol/L (137-145); Total Bilirubin 0.5 mg/dL (0.2-1.3); Total Protein 6.5 g/dL (6.3-8.2)
[2022-10-07 18:36] LABS: Appearance,Urine Clear (Clear); Bilirubin,Urine Negative (Negative); Blood,Urine Moderate (Negative); Color,Urine Light Yellow; Glucose,Urine (UA) Negative (Negative); Ketones,Urine Negative (Negative); Leukocyte Esterase,Urine Negative (Negative); Nitrite,Urine Negative (Negative); PH, Urine 6.5 (5.0-8.0); Protein,Urine Negative (Negative); RBC,Urine 5 /hpf (0-5); Specific Gravity,Urine 1.011 (1.001-1.035); Urobilinogen,Urine <2.0 mg/dL (<2.0); WBC,Urine 2 /hpf (0-5)
[2022-10-07 18:37] LABS: Amphetamine Screen,Urine Not Detected (NotDetected); Barbiturate Screen,Urine Not Detected (NotDetected); Benzodiazepines Screen,Urine Detected (NotDetected); Cocaine Screen,Urine Not Detected (NotDetected); Methadone Screen, Urine Not Detected (NotDetected); Opiate Screen,Urine Not Detected (NotDetected); Oxycodone Screen, Urine Not Detected (NotDetected); Phencyclidine Screen,Urine Not Detected (NotDetected); Tricyclic Antidepressant,Urine Not Detected (NotDetected); Urn Cannabinoid Scrn Not Detected (NotDetected)
[2022-10-07 19:04] VITALS: TEMP 98.2
[2022-10-07 19:04] LABS: Alcohol 204 mg/dL
[2022-10-07] MEDS ORDERED: NICOTINE 14MG/24HR PATCH TRANSDERM STA (21:14)
[2022-10-07 22:24] VITALS: BP 165/98; PULSE 65
[2022-10-07] MEDS ORDERED: oxyCODONE-APAP 10-325MG 1 EACH TAB PO PRN (22:26)
== END 2022-10-07 22:40 | disposition home or self-care (01) ==
LOC: EC 17:18
DX: S01.01XA Laceration without foreign body of scalp, initial encounter (principal); S06.0XAA Concussion with loss of consciousness status unknown, initial encounter; F10.129 Alcohol abuse with intoxication, unspecified; I10 Essential (primary) hypertension; I25.10 Atherosclerotic heart disease of native coronary artery without angina pectoris; J44.9 Chronic obstructive pulmonary disease, unspecified; F32.A Depression, unspecified; E78.5 Hyperlipidemia, unspecified; M19.90 Unspecified osteoarthritis, unspecified site; R40.2410 Glasgow coma scale score 13-15, unspecified time; F17.290 Nicotine dependence, other tobacco product, uncomplicated; Z79.82 Long term (current) use of aspirin; Z79.899 Other long term (current) drug therapy; V29.99XA Rider (driver) (passenger) of other motorcycle injured in unspecified traffic accident, initial encounter; Y93.55 Activity, bike riding; Y90.8 Blood alcohol level of 240 mg/100 ml or more
CPT/HCPCS: 99291; 12001; 36415; 93005; 86900; 86901; 80053; 84484; 85025; 85610; 85730; 86850; 81001; 80306; 72170; 71045; 72125; 70450; 71260; 74177; 90715; 90471; 96374; 96376 ×2; 96375; G0480; S4990; J2060; J1170; 80320

== ENCOUNTER 2022-10-15 21:14 | Observation (INO) | payer OTHER ==
[2022-10-15] MEDS ORDERED: SODIUM CHLORIDE 0.9% 1,000 ML IV STA (21:35)
[2022-10-15] MEDS ORDERED: KETOROLAC 15 MG/ML 1 ML VIAL IVP STA (21:36)
--- NOTE | 2022-10-15 22:01 | XR ---
EXAMINATION TYPE: XR chest 2V DATE OF EXAM: 10/15/2022 9:54 PM COMPARISON: Chest radiographs from 10/07/2022 TECHNIQUE: XR chest 2V Frontal and lateral views of the chest. CLINICAL INDICATION:Male, 57 years old with history of Chest Pain; FINDINGS: Lungs/Pleura: There is no evidence of pleural effusion, focal consolidation, or pneumothorax. Pulmonary vascularity: Unremarkable. Heart/mediastinum: Cardiomediastinal silhouette is prominent in size. Left atrial appendage occlusion device is present. Musculoskeletal: No acute osseous pathology. IMPRESSION: No acute cardiopulmonary disease/process.
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
[2022-10-15 22:24] LABS: Basophils % (A) 0 %; Eosinophils # (A) 0.2 k/uL (0-0.7); Eosinophils % (A) 2 %; HCT 37.1 % (39.0-53.0); HGB 12.9 gm/dL (13.0-17.5); Lymphocytes # (A) 1.8 k/uL (1.0-4.8); Lymphocytes % (A) 20 %; MCH 32.6 pg (25.0-35.0); MCHC 34.7 g/dL (31.0-37.0); MCV 94.1 fL (80.0-100.0); Mean Platelet Volume 7.6; Monocytes # (A) 0.6 k/uL (0-1.0); Monocytes % (A) 6 %; Neutrophils # (A) 5.9 k/uL (1.3-7.7); Neutrophils % (A) 68 %; Platelet Count 289 k/uL (150-450); RBC 3.94 m/uL (4.30-5.90); RDW 14.4 % (11.5-15.5); WBC 8.7 k/uL (3.8-10.6)
[2022-10-15] MEDS ORDERED: SODIUM CHLORIDE 0.9% 1,000 ML with MVI, ADULT NO.4 WITH VIT K 10 ML, THIAMINE 100 MG, F... IV ONE ×4 (22:30)
[2022-10-15 22:33] LABS: INR 0.9 (<1.2); Partial Thromboplastin Time 23.3 sec (22.0-30.0); Prothrombin Time 9.4 sec (9.0-12.0)
[2022-10-15 22:38] LABS: ALT 34 U/L (4-49); AST 55 U/L (17-59); African American GFR (CKD) 88 (>60 ml/min/1.73 sqM); Albumin 4.4 g/dL (3.5-5.0); Alkaline Phosphatase 64 U/L (38-126); Anion Gap 15 mmol/L; Blood Urea Nitrogen 9 mg/dL (9-20); Calcium 9.5 mg/dL (8.4-10.2); Carbon Dioxide 20 mmol/L (22-30); Chloride 101 mmol/L (98-107); Glucose 106 mg/dL (74-99); Lipase 157 U/L (23-300); Magnesium 1.8 mg/dL (1.6-2.3); Non-African American GFR(CKD) 76 (>60 ml/min/1.73 sqM); Potassium 3.3 mmol/L (3.5-5.1); Sodium 136 mmol/L (137-145); Total Bilirubin 0.5 mg/dL (0.2-1.3); Total Protein 7.2 g/dL (6.3-8.2)
[2022-10-15] MEDS ORDERED: ONDANSETRON 4 MG/2 ML VIAL IVP STA (22:46)
[2022-10-15 23:00] LABS: Alcohol 315 mg/dL
[2022-10-15 23:36] LABS: Appearance,Urine Clear (Clear); Bilirubin,Urine Negative (Negative); Blood,Urine Negative (Negative); Glucose,Urine (UA) Negative (Negative); Ketones,Urine Negative (Negative); Leukocyte Esterase,Urine Negative (Negative); Nitrite,Urine Negative (Negative); PH, Urine 6.5 (5.0-8.0); Protein,Urine Negative (Negative); Specific Gravity,Urine 1.004 (1.001-1.035); Urobilinogen,Urine <2.0 mg/dL (<2.0)
[2022-10-15] MEDS ORDERED: LORazepam 2 MG/ML INJ IM STA (23:38)
[2022-10-15] MEDS ORDERED: diphenhydrAMINE 50 MG/ML 1 ML VIAL IM STA (23:38)
[2022-10-15 23:40] LABS: Color,Urine Yellow
[2022-10-15] MEDS ORDERED: POTASSIUM CHLORIDE ER 20 MEQ TAB.ER PO STA (23:43)
[2022-10-16] MEDS ORDERED: HALOPERIDOL LACTATE 5 MG/ML 1 ML VIAL IM STA (00:04)
--- NOTE | 2022-10-16 00:18 | ED ---
Medical Decision Making - Lab Data Result diagrams: 10/15/22 21:52 10/15/22 21:52 Lab Results 10/15/22 10/15/22 10/15/22 Range/Units 21:52 21:52 21:52 WBC 8.7 (3.8-10.6) k/uL RBC 3.94 L (4.30-5.90) m/uL Hgb 12.9 L (13.0-17.5) gm/dL Hct 37.1 L (39.0-53.0) % MCV 94.1 (80.0-100.0) fL MCH 32.6 (25.0-35.0) pg MCHC 34.7 (31.0-37.0) g/dL RDW 14.4 (11.5-15.5) % Plt Count 289 (150-450) k/uL MPV 7.6 Neutrophils % 68 % Lymphocytes % 20 % Monocytes % 6 % Eosinophils % 2 % Basophils % 0 % Neutrophils # 5.9 (1.3-7.7) k/uL Lymphocytes # 1.8 (1.0-4.8) k/uL Monocytes # 0.6 (0-1.0) k/uL Eosinophils # 0.2 (0-0.7) k/uL Basophils # 0.0 (0-0.2) k/uL PT 9.4 (9.0-12.0) sec INR 0.9 (<1.2) APTT 23.3 (22.0-30.0) sec Sodium 136 L (137-145) mmol/L Potassium 3.3 L (3.5-5.1) mmol/L Chloride 101 (98-107) mmol/L Carbon Dioxide 20 L (22-30) mmol/L Anion Gap 15 mmol/L BUN 9 (9-20) mg/dL Creatinine 1.09 (0.66-1.25) mg/dL Est GFR (CKD-EPI)AfAm 88 (>60 ml/min/1.73 sqM) Est GFR (CKD-EPI)NonAf 76 (>60 ml/min/1.73 sqM) Glucose 106 H (74-99) mg/dL Calcium 9.5 (8.4-10.2) mg/dL Magnesium 1.8 (1.6-2.3) mg/dL Total Bilirubin 0.5 (0.2-1.3) mg/dL AST 55 (17-59) U/L ALT 34 (4-49) U/L Alkaline Phosphatase 64 (38-126) U/L Troponin I (0.000-0.034) ng/mL Total Protein 7.2 (6.3-8.2) g/dL Albumin 4.4 (3.5-5.0) g/dL Lipase 157 (23-300) U/L Urine Color Urine Appearance (Clear) Urine pH (5.0-8.0) Ur Specific [place] (1.001-1.035) Urine Protein (Negative) Urine Glucose (UA) (Negative) Urine Ketones (Negative) Urine Blood (Negative) Urine Nitrite (Negative) Urine Bilirubin (Negative) Urine Urobilinogen (<2.0) mg/dL Ur Leukocyte Esterase (Negative) Serum Alcohol 315 H* mg/dL 10/15/22 10/15/22 Range/Units 21:52 23:16 WBC (3.8-10.6) k/uL RBC (4.30-5.90) m/uL Hgb (13.0-17.5) gm/dL Hct (39.0-53.0) % MCV (80.0-100.0) fL MCH (25.0-35.0) pg MCHC (31.0-37.0) g/dL RDW (11.5-15.5) % Plt Count (150-450) k/uL MPV Neutrophils % % Lymphocytes % % Monocytes % % Eosinophils % % Basophils % % Neutrophils # (1.3-7.7) k/uL Lymphocytes # (1.0-4.8) k/uL Monocytes # (0-1.0) k/uL Eosinophils # (0-0.7) k/uL Basophils # (0-0.2) k/uL PT (9.0-12.0) sec INR (<1.2) APTT (22.0-30.0) sec Sodium (137-145) mmol/L Potassium (3.5-5.1) mmol/L Chloride (98-107) mmol/L Carbon Dioxide (22-30) mmol/L Anion Gap mmol/L BUN (9-20) mg/dL Creatinine (0.66-1.25) mg/dL Est GFR (CKD-EPI)AfAm (>60 ml/min/1.73 sqM) Est GFR (CKD-EPI)NonAf (>60 ml/min/1.73 sqM) Glucose (74-99) mg/dL Calcium (8.4-10.2) mg/dL Magnesium (1.6-2.3) mg/dL Total Bilirubin (0.2-1.3) mg/dL AST (17-59) U/L ALT (4-49) U/L Alkaline Phosphatase (38-126) U/L Troponin I <0.012 (0.000-0.034) ng/mL Total Protein (6.3-8.2) g/dL Albumin (3.5-5.0) g/dL Lipase (23-300) U/L Urine Color Yellow Urine Appearance Clear (Clear) Urine pH 6.5 (5.0-8.0) Ur Specific [place] 1.004 (1.001-1.035) Urine Protein Negative (Negative) Urine Glucose (UA) Negative (Negative) Urine Ketones Negative (Negative) Urine Blood Negative (Negative) Urine Nitrite Negative (Negative) Urine Bilirubin Negative (Negative) Urine Urobilinogen <2.0 (<2.0) mg/dL Ur Leukocyte Esterase Negative (Negative) Serum Alcohol mg/dL Disposition Clinical Impression: Chest pain, Alcohol intoxication, Combative behavior Disposition: ADMITTED IP TO THIS [facility] Condition: Fair Is patient prescribed a controlled substance at d/c from ED?: No Time of Disposition: 23:30 Procedures - Restraint - Face to Face Restraint Occurrence 1 Patient's Immediate Situation: Endangers self safety, Endangers others' safety Patient's Reaction to the Intervention: Aggressive, Combative Patient's Medical & Behavioral Condition: Awake, Agitated Need to Continue or Terminate Restraint or Seclusion: Continue Face to Face Eval of Restraint Date: 10/15/22 Face to Face Eval of Restraint Time: 23:36
[2022-10-16] MEDS ORDERED: NALOXONE 0.4 MG/ML 1 ML VIAL IV PRN (01:20)
[2022-10-16] MEDS ORDERED: LORazepam 0.5 MG TAB PO PRN (02:24)
[2022-10-16] MEDS ORDERED: LORazepam 2 MG/ML INJ IM PRN (02:24)
[2022-10-16] MEDS ORDERED: LORazepam 1 MG TAB PO PRN ×2 (02:24)
[2022-10-16] MEDS: LORazepam 1 MG TAB PO PRN ×2 (03:46→11:34)
[2022-10-16] MEDS ORDERED: ATORVASTATIN 40 MG TAB PO SCH (13:15)
[2022-10-16] MEDS ORDERED: NICOTINE 14MG/24HR PATCH TRANSDERM PRN (13:35)
[2022-10-16] MEDS ORDERED: ACETAMINOPHEN TAB 325 MG TAB PO PRN (13:35)
[2022-10-16] MEDS ORDERED: HYDROcodone/APAP 5-325MG 1 EACH TAB PO PRN (13:36)
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
[2022-10-16] MEDS ORDERED: AMITRIPTYLINE HCL 25 MG TAB PO SCH (13:45)
[2022-10-16] MEDS ORDERED: AMIODARONE 100 MG TAB PO SCH (13:45)
[2022-10-16] MEDS ORDERED: CLOPIDOGREL 75 MG TAB PO SCH (13:45)
--- NOTE | 2022-10-16 14:25 | CT ---
EXAMINATION TYPE: CT chest angio for PE CT DLP: 653.4 mGycm, Automated exposure control for dose reduction was used. DATE OF EXAM: 10/16/2022 2:09 PM COMPARISON: Chest radiograph from same day. CT 08/02/2020. 05/20/2021. CLINICAL INDICATION:Male, 57 years old with history of Dyspnea; Dyspnea. TECHNIQUE/CONTRAST: CTA scan of the thorax is performed with IV Contrast, patient injected with 80ml mL of Isovue 370, NM P images are created and reviewed these are created on a separate workstation.. FINDINGS: Pulmonary Artery: There is no evidence for a central filling defect within the pulmonary vasculature to suggest acute pulmonary embolism. Limited evaluation of the segmental and subsegmental branches se condary to bolus timing. The pulmonary artery is of normal size. Lungs/Pleura: No evidence of focal consolidation, pleural effusion or pneumothorax. Airway: Large airways are patent. Heart: Heart is within normal limits for size. Vasculature: No evidence of aortic aneurysm. Mediastinum: No gross evidence of adenopathy. Musculoskeletal: No acute osseous abnormalities Soft Tissues: Unremarkable. Lower neck: No significant findings. Upper Abdomen: No significant findings. IMPRESSION: 1. Limiting evaluation secondary to bolus timing. No central PE.
[2022-10-16 15:10] VITALS: BP 121/72; PULSE 89; RESP 18; TEMP 98.2
[2022-10-16] MEDS ORDERED: hydrALAZINE HCL 50 MG TAB PO SCH (16:00)
[2022-10-16] MEDS ORDERED: METOPROLOL TARTRATE 25 MG TAB PO SCH (21:00)
[2022-10-17] MEDS ORDERED: CHLORTHALIDONE 25 MG TAB PO SCH (09:00)
[2022-10-17] MEDS ORDERED: lisinopriL 5 MG TAB PO SCH (09:00)
[2022-10-17] MEDS ORDERED: ASPIRIN 81 MG PO SCH (09:00)
[2022-10-17] MEDS ORDERED: MAGNESIUM OXIDE 400 MG TAB PO SCH (09:00)
[2022-10-17] MEDS ORDERED: NON FORMULARY DRUG (Rosuvastatin Calcium [Rosuvastatin Calcium] 5 MG Tablet) PO SCH (09:00)
== END 2022-10-16 15:21 | disposition left against medical advice (07) ==
LOC: EC 21:14 → 4SSUR 10-16 02:26
PROVIDERS: ADMIT Family Medicine; ATTEND Family Medicine
DX: R07.89 Other chest pain (principal); F10.129 Alcohol abuse with intoxication, unspecified; I25.10 Atherosclerotic heart disease of native coronary artery without angina pectoris; Y90.8 Blood alcohol level of 240 mg/100 ml or more; Z91.199 Patient's noncompliance with other medical treatment and regimen due to unspecified reason; E78.5 Hyperlipidemia, unspecified; I48.91 Unspecified atrial fibrillation; M19.90 Unspecified osteoarthritis, unspecified site; J44.9 Chronic obstructive pulmonary disease, unspecified; I10 Essential (primary) hypertension; E66.9 Obesity, unspecified; Z68.30 Body mass index [BMI] 30.0-30.9, adult; G89.29 Other chronic pain; M54.9 Dorsalgia, unspecified; F32.A Depression, unspecified; F41.9 Anxiety disorder, unspecified; Z79.899 Other long term (current) drug therapy; Z79.82 Long term (current) use of aspirin; Z79.02 Long term (current) use of antithrombotics/antiplatelets; Z87.891 Personal history of nicotine dependence; Z95.1 Presence of aortocoronary bypass graft; Z80.41 Family history of malignant neoplasm of ovary; Z82.49 Family history of ischemic heart disease and other diseases of the circulatory system; Z71.41 Alcohol abuse counseling and surveillance of alcoholic
CPT/HCPCS: 96372 ×2; 96374; 99285; 36415; 93005; 85379; 80053; 83690; 83735; 84484 ×2; 85025; 85610; 85730; 81003; 71046; 71275; G0378; G0480; J2060; J1200; J1630; J3411; J1885; Q9967; 80320

== ENCOUNTER 2022-10-27 00:33 | Observation (INO) | payer OTHER ==
[2022-10-27 01:16] LABS: Basophils % (A) 0 %; Eosinophils # (A) 0.1 k/uL (0-0.7); Eosinophils % (A) 1 %; HCT 38.1 % (39.0-53.0); HGB 13.1 gm/dL (13.0-17.5); Lymphocytes # (A) 1.2 k/uL (1.0-4.8); Lymphocytes % (A) 19 %; MCH 33.3 pg (25.0-35.0); MCHC 34.4 g/dL (31.0-37.0); MCV 96.9 fL (80.0-100.0); Mean Platelet Volume 7.2; Monocytes # (A) 0.3 k/uL (0-1.0); Monocytes % (A) 5 %; Neutrophils # (A) 4.6 k/uL (1.3-7.7); Neutrophils % (A) 73 %; Platelet Count 258 k/uL (150-450); RBC 3.93 m/uL (4.30-5.90); RDW 13.9 % (11.5-15.5); WBC 6.3 k/uL (3.8-10.6)
[2022-10-27 01:26] LABS: ALT 33 U/L (4-49); AST 51 U/L (17-59); African American GFR (CKD) 77 (>60 ml/min/1.73 sqM); Albumin 4.7 g/dL (3.5-5.0); Alkaline Phosphatase 56 U/L (38-126); Anion Gap 12 mmol/L; Blood Urea Nitrogen 9 mg/dL (9-20); Calcium 9.8 mg/dL (8.4-10.2); Carbon Dioxide 26 mmol/L (22-30); Chloride 99 mmol/L (98-107); Glucose 103 mg/dL (74-99); Lipase 171 U/L (23-300); Magnesium 1.5 mg/dL (1.6-2.3); Non-African American GFR(CKD) 67 (>60 ml/min/1.73 sqM); Potassium 3.4 mmol/L (3.5-5.1); Sodium 137 mmol/L (137-145); Total Bilirubin 0.6 mg/dL (0.2-1.3); Total Protein 7.6 g/dL (6.3-8.2)
[2022-10-27 01:32] LABS: Partial Thromboplastin Time 23.5 sec (22.0-30.0); Prothrombin Time 10.4 sec (9.0-12.0)
[2022-10-27 01:35] LABS: NT-Pro-B-Type Natriuretic Pept 262 pg/mL
--- NOTE | 2022-10-27 02:51 | XR ---
EXAM: XR Chest, 2 Views CLINICAL HISTORY: ITS.REASON XR Reason: CP TECHNIQUE: Frontal and lateral views of the chest. COMPARISON: No relevant prior studies available. FINDINGS: Lungs: No consolidation or mass. Pleural space: No effusion. Heart: No cardiomegaly. Bones/joints: No acute findings. IMPRESSION: No acute cardiopulmonary process.
[2022-10-27] MEDS ORDERED: NALOXONE 0.4 MG/ML 1 ML VIAL IV PRN (03:02)
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
[2022-10-27] MEDS ORDERED: SODIUM CHLORIDE 0.9% 1,000 ML IV ONE (03:03)
[2022-10-27] MEDS ORDERED: ONDANSETRON 4 MG/2 ML VIAL IVP STA (03:03)
[2022-10-27] MEDS: lisinopriL 5 MG TAB PO SCH (10:54)
[2022-10-27] MEDS: ATORVASTATIN 10 MG TAB PO SCH (10:54)
[2022-10-27] MEDS: AMIODARONE 100 MG TAB PO SCH (10:54)
[2022-10-27] MEDS: METOPROLOL TARTRATE 25 MG TAB PO SCH ×2 (10:54→19:58)
[2022-10-27] MEDS: ASPIRIN 81 MG PO SCH (10:54)
[2022-10-27] MEDS: CHLORTHALIDONE 25 MG TAB PO SCH (10:55)
[2022-10-27] MEDS: CLOPIDOGREL 75 MG TAB PO SCH (10:55)
[2022-10-27] MEDS: hydrALAZINE HCL 50 MG TAB PO SCH ×3 (10:55→19:57)
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
[2022-10-27] MEDS ORDERED: ACETAMINOPHEN TAB 325 MG TAB PO PRN (18:35)
[2022-10-27] MEDS ORDERED: POTASSIUM CHLORIDE ER 20 MEQ TAB.ER PO STA (18:35)
[2022-10-27] MEDS ORDERED: NICOTINE 14MG/24HR PATCH TRANSDERM PRN (18:35)
[2022-10-27] MEDS ORDERED: NITROGLYCERIN SL TABS 0.4 MG TAB SUBLINGUAL PRN (18:35)
[2022-10-27] MEDS ORDERED: Magnesium Replacement Protocol 1 EACH MISC MISCELLANE PRN (18:35)
[2022-10-27] MEDS: MAGNESIUM SULFATE-D5W PMX 1 GM in DEXTROSE/WATER 1 100ML.BAG IVPB SCH ×2 (19:58→20:57)
[2022-10-27] MEDS ORDERED: ONDANSETRON 4 MG/2 ML VIAL IVP PRN (20:34)
[2022-10-27] MEDS: oxyCODONE-APAP 10-325MG 1 EACH TAB PO PRN (20:56)
--- NOTE | 2022-10-27 22:40 | HP ---
HISTORY AND PHYSICAL CHIEF COMPLAINT: Chest pain. HISTORY OF PRESENT ILLNESS: This is another admission for this 57-year-old white male with a history of coronary artery disease, status post coronary artery bypass graft. He is also chronic alcoholic. He came to the emergency room with complaints of chest pain. He had associated nausea and vomiting, but no radiation of the pain. He was slightly short of breath. He states he became slightly diaphoretic. REVIEW OF SYSTEMS: Otherwise, unremarkable or noncontributory. He is a heavy drinker. He denies any confusion, blackouts, abdominal pain, nausea, vomiting, melena, etc. Past medical history, family history, and personal and social histories are all otherwise unremarkable and noncontributory except as already mentioned. PHYSICAL EXAMINATION: VITAL SIGNS: Blood pressure is 153/92 with a pulse of 96, respirations of 32, and he is afebrile. GENERAL: He appeared to be in no acute distress. SKIN: Dry. HEAD, EARS, EYES, NOSE, MOUTH, AND THROAT: Normal. CHEST: Clear. CARDIAC: Normal sinus rhythm. No murmurs or extra sounds. ABDOMEN: Soft and nontender. Slightly protuberant. EXTREMITIES: Normal. NEUROLOGIC: He is intact. DIAGNOSES: He is admitted to the hospital with diagnoses: 1. Chest pain. 2. Extensive history of coronary artery disease, status post coronary artery bypass grafting. 3. Alcoholism. PLAN: 1. Bed rest. 2. IV fluids. 3. Serial EKGs and enzymes. MMODL / IJN: [id number] /
[2022-10-28] MEDS: ATORVASTATIN 10 MG TAB PO SCH (08:25)
[2022-10-28] MEDS: CHLORTHALIDONE 25 MG TAB PO SCH (08:25)
[2022-10-28] MEDS: hydrALAZINE HCL 50 MG TAB PO SCH (08:25)
[2022-10-28] MEDS: MAGNESIUM OXIDE 400 MG TAB PO SCH (08:25)
[2022-10-28] MEDS: CLOPIDOGREL 75 MG TAB PO SCH (08:25)
[2022-10-28] MEDS: ASPIRIN 81 MG PO SCH (08:25)
[2022-10-28] MEDS: AMITRIPTYLINE HCL 25 MG TAB PO SCH (08:27)
[2022-10-28] MEDS: METOPROLOL TARTRATE 25 MG TAB PO SCH ×2 (08:27→20:11)
[2022-10-28] MEDS: AMIODARONE 100 MG TAB PO SCH (08:27)
[2022-10-28] MEDS: oxyCODONE-APAP 10-325MG 1 EACH TAB PO PRN ×2 (08:29→20:41)
[2022-10-28] MEDS: lisinopriL 5 MG TAB PO SCH (08:33)
[2022-10-28 08:43] LABS: Magnesium 1.8 mg/dL (1.6-2.3); Potassium 4.3 mmol/L (3.5-5.1)
[2022-10-28] MEDS: PROCHLORPERAZINE INJ 10 MG/2 ML VIAL IVP PRN (16:13)
--- NOTE | 2022-10-28 19:17 | P.PN ---
Subjective Progress Note Date: 10/28/22 This is a patient of Dr. Joaquin admitted for chest pain with nausea and vomiting. Patient has been seen by cardiology and cleared to see in the office. Chest pain has resolved at this time. Main complaint is dizziness and lightheadedness worse with position changes. Denies room spinning states he has had vertigo before and this is different. Patient was taken off the zofran due to EKG changes of QT prolongation. Compazine is added. Review of Systems Constitutional: Denied any fatigue denied any fever. Cardio vascular: denied any chest pain, palpitations Gastrointestinal: denied any nausea, vomiting, diarrhea Pulmonary: Denied any shortness of breath cough Neurologic denied any new focal deficits reports dizziness and lightheadedness All inpatient medications were reviewed and appropriate changes in these medications as dictated in the interval history and assessment and plan. PHYSICAL EXAMINATION: GENERAL: The patient is alert and oriented x3, not in any acute distress. Well developed, well nourished. HEENT: Pupils are round and equally reacting to light. EOMI. No scleral icterus. No conjunctival pallor. Normocephalic, atraumatic. No pharyngeal erythema. No thyromegaly. CARDIOVASCULAR: S1 and S2 present. No murmurs, rubs, or gallops. PULMONARY: Chest is clear to auscultation, no wheezing or crackles. ABDOMEN: Soft, nontender, nondistended, normoactive bowel sounds. No palpable organomegaly. MUSCULOSKELETAL: No joint swelling or deformity. EXTREMITIES: No cyanosis, clubbing, or pedal edema. NEUROLOGICAL: Gross neurological examination did not reveal any focal deficits. SKIN: No rashes. Assessment Acute chest pain, troponin negative x 3, ACS ruled out Chest pain possible due gastritis Dizziness and lightheadedness likely due to orthostatic blood pressure changes and mild dehydration. Hx of coronary artery disease and prior CABG Hx of atrial fibrillation Hypertension Hyperlipidemia Hx of chronic alcohol use Hypomagnesemia and hypokalemia Anxiety/Depression Chronic ongoing nicotinue use, marijuana use Chronic pain GI prophylaxis on protonix DVT prophylaxis Full Code Plan Start IV fluids and hold blood pressure medications Antiemetics Continue to monitor for acute alcohol withdrawal. Patient has been out of his pain medication from home possible withdrawal affect takes percocet which as been resumed. Repeat labs in AM. The impression and plan of care has been dictated by Hoda Valiente, Nurse Practitioner as directed. Dr. Maia MD I have performed a history and physical examination and medical decision making of this patient, discussed the same with the dictator, and agree with the dictators assessment and plan as written, documented as a scribe. Based on total visit time, I have performed more than 50% of this visit. Objective - Vital Signs Vital signs: Vital Signs Temp 98.3 F 10/28/22 14:06 Pulse 68 10/28/22 14:06 Resp 17 10/28/22 14:06 BP 110/70 10/28/22 14:06 Pulse Ox 96 10/28/22 14:06 FiO2 Intake & Output 10/27/22 10/28/22 10/28/22 18:59 06:59 18:59 Intake Total 18 222 Output Total 400 Balance 18 -178 Intake: Oral 18 222 Output: Urine 400 Other: Voiding Method Urinal Urinal # Voids 2 - Labs CBC & Chem 7: 10/27/22 01:10 10/28/22 07:48 Assessment and Plan Time with Patient: Less than 30
[2022-10-29 07:50] VITALS: RESP 17
[2022-10-29] MEDS: AMITRIPTYLINE HCL 25 MG TAB PO SCH ×2 (08:33→08:37)
[2022-10-29] MEDS: CHLORTHALIDONE 25 MG TAB PO SCH ×2 (08:33→10:32)
[2022-10-29] MEDS: oxyCODONE-APAP 10-325MG 1 EACH TAB PO PRN (08:34)
[2022-10-29] MEDS: MAGNESIUM OXIDE 400 MG TAB PO SCH (08:34)
[2022-10-29] MEDS: ASPIRIN 81 MG PO SCH (08:34)
[2022-10-29] MEDS: AMIODARONE 100 MG TAB PO SCH ×2 (08:34→10:48)
[2022-10-29] MEDS: METOPROLOL TARTRATE 25 MG TAB PO SCH ×2 (08:34→10:33)
[2022-10-29] MEDS: CLOPIDOGREL 75 MG TAB PO SCH (08:34)
[2022-10-29] MEDS: ATORVASTATIN 10 MG TAB PO SCH (08:34)
[2022-10-29] MEDS: lisinopriL 5 MG TAB PO SCH ×2 (08:34→10:32)
[2022-10-29] MEDS: PROCHLORPERAZINE INJ 10 MG/2 ML VIAL IVP PRN (08:35)
[2022-10-29 11:35] LABS: Blood Urea Nitrogen 16.8 mg/dL (9.0-27.0); Calcium 9.5 mg/dL (8.7-10.3); Carbon Dioxide 22.9 mmol/L (21.6-31.8); Chloride 100 mmol/L (96-109); Glucose 96 mg/dL (70-110); Magnesium 1.9 mg/dL (1.5-2.4); Potassium 4.5 mmol/L (3.5-5.5); Sodium 135 mmol/L (135-145)
[2022-10-29 14:35] VITALS: BP 100/51; PULSE 108; TEMP 98.7
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
[2022-10-29] MEDS ORDERED: METOPROLOL TARTRATE 12.5 MG TAB PO SCH (21:00)
== END 2022-10-29 19:00 | disposition home or self-care (01) ==
LOC: EC 00:33 → 6NMEDSUR 03:03
PROVIDERS: ADMIT Family Medicine; ATTEND Family Medicine
DX: R07.89 Other chest pain (principal); I25.10 Atherosclerotic heart disease of native coronary artery without angina pectoris; E87.6 Hypokalemia; E83.42 Hypomagnesemia; E86.0 Dehydration; F10.20 Alcohol dependence, uncomplicated; I48.91 Unspecified atrial fibrillation; E78.5 Hyperlipidemia, unspecified; I10 Essential (primary) hypertension; S06.0XAA Concussion with loss of consciousness status unknown, initial encounter; V89.2XXA Person injured in unspecified motor-vehicle accident, traffic, initial encounter; J44.9 Chronic obstructive pulmonary disease, unspecified; I07.1 Rheumatic tricuspid insufficiency; Z91.148 Patient's other noncompliance with medication regimen for other reason; M19.90 Unspecified osteoarthritis, unspecified site; T45.0X5A Adverse effect of antiallergic and antiemetic drugs, initial encounter; R94.31 Abnormal electrocardiogram [ECG] [EKG]; M23.207 Derangement of unspecified meniscus due to old tear or injury, left knee; R11.2 Nausea with vomiting, unspecified; R61 Generalized hyperhidrosis; G89.29 Other chronic pain; M54.9 Dorsalgia, unspecified; M54.2 Cervicalgia; F32.A Depression, unspecified; F41.9 Anxiety disorder, unspecified; F17.290 Nicotine dependence, other tobacco product, uncomplicated; Z79.82 Long term (current) use of aspirin; Z79.02 Long term (current) use of antithrombotics/antiplatelets; Z79.899 Other long term (current) drug therapy; Z87.828 Personal history of other (healed) physical injury and trauma; Z95.1 Presence of aortocoronary bypass graft; Z95.5 Presence of coronary angioplasty implant and graft; Z71.41 Alcohol abuse counseling and surveillance of alcoholic; Z82.49 Family history of ischemic heart disease and other diseases of the circulatory system; Z80.41 Family history of malignant neoplasm of ovary
CPT/HCPCS: 96376 ×2; 96375; 96361; 96374; 99285; 36415; 93005; 83880; 80053; 80048; 83690; 83735 ×3; 84132; 84484; 85025; 85610; 85730; 71046; G0378 ×3; J0780 ×2; J2405; J3475

== ENCOUNTER 2022-12-30 12:38 | Inpatient (IN) | payer OTHER ==
[2022-12-30] MEDS ORDERED: SODIUM CHLORIDE 0.9% 2,000 ML IV STA (13:24)
[2022-12-30] MEDS ORDERED: HYDROmorphone 0.5 MG/0.5 ML SYRINGE IVP STA (13:24)
[2022-12-30] MEDS ORDERED: ONDANSETRON 4 MG/2 ML VIAL IVP STA (13:24)
[2022-12-30 13:50] LABS: Basophils % (A) 0 %; Eosinophils # (A) 0.1 k/uL (0-0.7); Eosinophils % (A) 1 %; HCT 44.1 % (39.0-53.0); HGB 15.3 gm/dL (13.0-17.5); Lymphocytes # (A) 1.1 k/uL (1.0-4.8); Lymphocytes % (A) 11 %; MCHC 34.7 g/dL (31.0-37.0); MCV 94.9 fL (80.0-100.0); Mean Platelet Volume 7.5; Monocytes # (A) 0.4 k/uL (0-1.0); Monocytes % (A) 4 %; Neutrophils # (A) 8.1 k/uL (1.3-7.7); Neutrophils % (A) 83 %; Platelet Count 274 k/uL (150-450); RBC 4.65 m/uL (4.30-5.90); RDW 12.6 % (11.5-15.5); WBC 9.8 k/uL (3.8-10.6)
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
[2022-12-30 14:13] LABS: ALT 95 U/L (4-49); AST 120 U/L (17-59); African American GFR (CKD) 41 (>60 ml/min/1.73 sqM); Albumin 5.4 g/dL (3.5-5.0); Alkaline Phosphatase 45 U/L (38-126); Amylase 76 U/L (30-110); Anion Gap 21 mmol/L; Blood Urea Nitrogen 27 mg/dL (9-20); Calcium 10.5 mg/dL (8.4-10.2); Carbon Dioxide 21 mmol/L (22-30); Chloride 90 mmol/L (98-107); Glucose 97 mg/dL (74-99); Lipase 244 U/L (23-300); Non-African American GFR(CKD) 36 (>60 ml/min/1.73 sqM); Potassium 3.5 mmol/L (3.5-5.1); Sodium 132 mmol/L (137-145); Total Bilirubin 0.8 mg/dL (0.2-1.3); Total Protein 8.4 g/dL (6.3-8.2)
--- NOTE | 2022-12-30 15:35 | CT ---
EXAMINATION TYPE: CT abdomen pelvis wo con DATE OF EXAM: 12/30/2022 COMPARISON: 05/20/2021 HISTORY: LLQ and groin pain. CT DLP: 652.2 mGycm Automated exposure control for dose reduction was used. TECHNIQUE: Helical acquisition of images was performed from the lung bases through the pelvis. FINDINGS: The lung bases are clear. The gallbladder is normal without gallstones, distention, wall thickening or pericholecystic fluid. There is no organomegaly involving the liver, pancreas, spleen or adrenal glands. There is mild left renal vascular calcification but there are no kidney stones or process. Caliber the abdominal aorta is normal is no retroperitoneal adenopathy or hemorrhage. The bowel loops are normal in caliber and there is no dilatation or obstruction. There is diverticulo sis of the colon without CT evidence of diverticulitis. There is no free peritoneal air or fluid. No inflammatory changes identified in the mesentery. There is no pelvic mass, free fluid, abscess or adenopathy. The osseous structures are intact. IMPRESSION: No acute changes within the abdomen or pelvis.
[2022-12-30 15:44] LABS: Appearance,Urine Clear (Clear); Bilirubin,Urine Negative (Negative); Blood,Urine Negative (Negative); Color,Urine Colorless; Glucose,Urine (UA) Negative (Negative); Ketones,Urine Negative (Negative); Leukocyte Esterase,Urine Negative (Negative); Nitrite,Urine Negative (Negative); Protein,Urine Negative (Negative); Urobilinogen,Urine <2.0 mg/dL (<2.0)
[2022-12-30 15:57] LABS: Amphetamine Screen,Urine Not Detected (NotDetected); Barbiturate Screen,Urine Not Detected (NotDetected); Benzodiazepines Screen,Urine Not Detected (NotDetected); Cocaine Screen,Urine Not Detected (NotDetected); Methadone Screen, Urine Not Detected (NotDetected); Opiate Screen,Urine Detected (NotDetected); Oxycodone Screen, Urine Detected (NotDetected); Phencyclidine Screen,Urine Not Detected (NotDetected); Tricyclic Antidepressant,Urine Not Detected (NotDetected); Urn Cannabinoid Scrn Not Detected (NotDetected)
[2022-12-30] MEDS ORDERED: HYDROcodone/APAP 5-325MG 1 EACH TAB PO PRN (18:11)
[2022-12-30] MEDS ORDERED: NALOXONE 0.4 MG/ML 1 ML VIAL IV PRN (18:11)
[2022-12-30] MEDS ORDERED: ACETAMINOPHEN TAB 325 MG TAB PO PRN (18:11)
[2022-12-30] MEDS: SODIUM CHLORIDE 0.9% 1,000 ML IV SCH (18:30)
--- NOTE | 2022-12-30 19:59 | XR ---
EXAMINATION TYPE: XR chest 2V DATE OF EXAM: 12/30/2022 6:44 PM CLINICAL INDICATION:Male, 57 years old with history of Chest pain; [facility] COMPARISON: 10/27/2022 TECHNIQUE: XR chest 2V Frontal and lateral views of the chest. FINDINGS: Lines/Tubes: EKG leads overlie the chest. No indwelling lines are seen. Sternotomy wires and clips may be from CA BG. Left atrial appendage occlusion device. Lungs/Pleura: There is no evidence of pleural effusion, focal consolidation, or pneumothorax. Pulmonary vascularity: Unremarkable. Heart/mediastinum: Cardiomediastinal silhouette is unremarkable. Musculoskeletal: No acute osseous pathology. Other findings: None IMPRESSION: No acute cardiopulmonary disease/process. Postoperative changes.
[2022-12-30] MEDS ORDERED: NICOTINE 14MG/24HR PATCH TRANSDERM PRN (21:00)
[2022-12-30] MEDS: MORPHINE SULFATE ER 15 MG TABLET PO SCH (21:29)
[2022-12-30] MEDS: METOPROLOL TARTRATE 25 MG TAB PO SCH (21:29)
[2022-12-30] MEDS: ONDANSETRON 4 MG/2 ML VIAL IVP PRN (21:29)
[2022-12-31] MEDS: SODIUM CHLORIDE 0.9% 1,000 ML IV SCH ×3 (04:28→15:59)
[2022-12-31] MEDS: ONDANSETRON 4 MG/2 ML VIAL IVP PRN (06:55)
[2022-12-31] MEDS: MAGNESIUM OXIDE 400 MG TAB PO SCH (09:04)
[2022-12-31] MEDS: AMIODARONE 100 MG TAB PO SCH (09:04)
[2022-12-31] MEDS: AMITRIPTYLINE HCL 25 MG TAB PO SCH (09:04)
[2022-12-31] MEDS: ASPIRIN 81 MG PO SCH (09:04)
[2022-12-31] MEDS: METOPROLOL TARTRATE 25 MG TAB PO SCH ×2 (09:04→22:04)
[2022-12-31] MEDS: CLOPIDOGREL 75 MG TAB PO SCH (09:04)
[2022-12-31] MEDS: oxyCODONE-APAP 10-325MG 1 EACH TAB PO SCH ×3 (10:25→22:04)
--- NOTE | 2022-12-31 19:40 | PN ---
PROGRESS NOTE DATE OF SERVICE: 12/31/2022 CHIEF COMPLAINT: Acute kidney injury and alcoholism. HISTORY OF PRESENT ILLNESS: This gentleman is doing a little bit better. He is not vomiting. He is not having any significant pain. PHYSICAL EXAMINATION: CHEST: Clear. CARDIAC: Normal. ABDOMEN: Slightly protuberant and soft and it is thought that there is a presence of ascites. There is no jaundice or icterus. IMPRESSION: 1. Chronic alcoholism. 2. Dehydration. 3. Intractable nausea and vomiting. 4. Acute kidney injury. PLAN: Continue with IV fluids and monitoring of his renal function. MMODL / IJN: [id number] /
--- NOTE | 2022-12-31 19:55 | HP ---
HISTORY AND PHYSICAL CHIEF COMPLAINT: Nausea, vomiting, and abdominal pain. HISTORY OF PRESENT ILLNESS: This is another admission for this 57-year-old alcoholic. He came to the emergency room after a history of nausea and vomiting for "3 weeks". He states he has "not been drinking". He has had some constipation. He has also had some upper abdominal pain. He has had no hematemesis, melena, hematochezia, etc. In the emergency room, he had lactic acidosis and elevated BUN and creatinine, all of which would be consistent with his vomiting and drinking. REVIEW OF SYSTEMS: He denies any blackouts, seizures, neurologic symptoms, chest pain, hemoptysis, hematuria, incontinence, dysuria, etc. Past medical history, family history, and personal and social histories are all otherwise unremarkable or unchanged from his previous admitting and discharge summaries. PHYSICAL EXAMINATION: VITAL SIGNS: Blood pressure is 123/74 with a pulse of 86, respirations of 39, and he is afebrile. GENERAL: He appeared to be chronically ill. HEAD, EARS, EYES, NOSE, MOUTH, AND THROAT: Normal. There was no icterus. CHEST: Clear. CARDIAC: Demonstrated normal sinus rhythm with no murmurs. ABDOMEN: Slightly protuberant, soft, and slightly tender in the right upper quadrant. Liver was enlarged. EXTREMITIES: Normal. NEUROLOGIC: He is intact. DIAGNOSES: He is admitted to the hospital with diagnoses: 1. Intractable nausea and vomiting. 2. Dehydration. 3. Acute kidney injury. 4. Probable alcoholic gastritis. 5. Cirrhosis. 6. Lactic acidosis. PLAN: 1. Bedrest. 2. IV fluids. 3. Antiemetics. 4. Monitor kidney function. MMODL / IJN: [id number] /
[2022-12-31] MEDS: MORPHINE SULFATE ER 15 MG TABLET PO SCH (22:05)
[2023-01-01] MEDS: oxyCODONE-APAP 10-325MG 1 EACH TAB PO SCH ×4 (03:14→21:22)
[2023-01-01] MEDS: SODIUM CHLORIDE 0.9% 1,000 ML IV SCH ×4 (03:14→23:37)
[2023-01-01] MEDS: MORPHINE SULFATE 4 MG/ML SYRINGE IV PRN ×2 (05:00→23:08)
[2023-01-01] MEDS: ATORVASTATIN 10 MG TAB PO SCH (09:31)
[2023-01-01] MEDS: AMITRIPTYLINE HCL 25 MG TAB PO SCH (09:31)
[2023-01-01] MEDS: CLOPIDOGREL 75 MG TAB PO SCH (09:31)
[2023-01-01] MEDS: MAGNESIUM OXIDE 400 MG TAB PO SCH (09:31)
[2023-01-01] MEDS: AMIODARONE 100 MG TAB PO SCH (09:31)
[2023-01-01] MEDS: METOPROLOL TARTRATE 25 MG TAB PO SCH ×2 (09:32→21:22)
[2023-01-01] MEDS: ASPIRIN 81 MG PO SCH (09:32)
[2023-01-01] MEDS: lisinopriL 10 MG TAB PO SCH (09:32)
[2023-01-01] MEDS: ONDANSETRON 4 MG/2 ML VIAL IVP PRN (09:37)
[2023-01-01] MEDS: MORPHINE SULFATE ER 15 MG TABLET PO SCH (21:23)
[2023-01-02 02:43] LABS: BUN/Creat Ratio 14.71 Ratio (12.00-20.00); Blood Urea Nitrogen 20.6 mg/dL (9.0-27.0); Glucose 94 mg/dL (70-110)
[2023-01-02 02:44] LABS: ALT 42 U/L (10-49); AST 34 U/L (14-35); Albumin 3.9 g/dL (3.8-4.9); Alkaline Phosphatase 28 U/L (41-126); Basophils # (A) 0.05 X 10*3/uL (0.00-0.10); Basophils % (A) 1.1 %; Calcium 9.1 mg/dL (8.7-10.3); Carbon Dioxide 26.2 mmol/L (21.6-31.8); Chloride 101 mmol/L (96-109); Eosinophils # (A) 0.14 X 10*3/uL (0.04-0.35); Eosinophils % (A) 3.1 %; Globulin 1.5 g/dL (1.6-3.3); HCT 33.8 % (39.6-50.0); HGB 11.3 g/dL (13.0-17.0); Lymphocytes # (A) 1.38 X 10*3/uL (0.90-5.00); Lymphocytes % (A) 30.6 %; MCH 32.5 pg (27.0-32.0); MCHC 33.4 g/dL (32.0-37.0); MCV 97.1 FL (80.0-97.0); Mean Platelet Volume 10.1 FL (9.5-12.2); Monocytes # (A) 0.53 X 10*3/uL (0.20-1.00); Monocytes % (A) 11.8 %; NRBC Per 100 WBC 0 X 10*3/uL (0.00-0.01); Neutrophils % (A) 53.2 %; Platelet Count 195 X 10*3/uL (140-440); Potassium 4.1 mmol/L (3.5-5.5); RBC 3.48 X 10*6/uL (4.40-5.60); RDW 12.9 % (11.5-14.5); Sodium 136 mmol/L (135-145); Total Bilirubin 0.2 mg/dL (0.3-1.2); Total Protein 5.4 g/dL (6.2-8.2); WBC 4.51 X 10*3/uL (4.50-10.00)
[2023-01-02] MEDS: oxyCODONE-APAP 10-325MG 1 EACH TAB PO SCH ×4 (03:57→21:32)
[2023-01-02] MEDS: SODIUM CHLORIDE 0.9% 1,000 ML IV SCH ×2 (08:55→16:01)
[2023-01-02] MEDS: MAGNESIUM OXIDE 400 MG TAB PO SCH (08:56)
[2023-01-02] MEDS: ASPIRIN 81 MG PO SCH (08:56)
[2023-01-02] MEDS: METOPROLOL TARTRATE 25 MG TAB PO SCH ×2 (08:56→21:32)
[2023-01-02] MEDS: lisinopriL 10 MG TAB PO SCH (08:56)
[2023-01-02] MEDS: ATORVASTATIN 10 MG TAB PO SCH (08:56)
[2023-01-02] MEDS: CLOPIDOGREL 75 MG TAB PO SCH (08:57)
[2023-01-02] MEDS: AMIODARONE 100 MG TAB PO SCH (08:57)
[2023-01-02] MEDS: AMITRIPTYLINE HCL 25 MG TAB PO SCH (08:57)
[2023-01-02] MEDS: MORPHINE SULFATE ER 15 MG TABLET PO SCH (21:36)
[2023-01-03] MEDS: SODIUM CHLORIDE 0.9% 1,000 ML IV SCH ×3 (01:17→07:56)
[2023-01-03] MEDS: MORPHINE SULFATE 4 MG/ML SYRINGE IV PRN (02:19)
[2023-01-03] MEDS: oxyCODONE-APAP 10-325MG 1 EACH TAB PO SCH ×3 (04:24→16:56)
[2023-01-03] MEDS: ASPIRIN 81 MG PO SCH (07:54)
[2023-01-03] MEDS: METOPROLOL TARTRATE 25 MG TAB PO SCH (07:54)
[2023-01-03] MEDS: AMITRIPTYLINE HCL 25 MG TAB PO SCH (07:55)
[2023-01-03] MEDS: lisinopriL 10 MG TAB PO SCH (07:55)
[2023-01-03] MEDS: AMIODARONE 100 MG TAB PO SCH (07:55)
[2023-01-03] MEDS: ATORVASTATIN 10 MG TAB PO SCH (07:55)
[2023-01-03] MEDS: MAGNESIUM OXIDE 400 MG TAB PO SCH (07:55)
[2023-01-03] MEDS: CLOPIDOGREL 75 MG TAB PO SCH (07:55)
[2023-01-03 07:58] VITALS: RESP 15; TEMP 97.8
--- NOTE | 2023-01-03 12:57 | PN ---
PROGRESS NOTE DATE OF SERVICE: 01/01/2023 CHIEF COMPLAINT: Intractable nausea and vomiting, dehydration, acute kidney injury, and alcoholism. HISTORY OF PRESENT ILLNESS: This gentleman is doing a little bit better. His hydration is improving. He has not had any vomiting, and he has not gone into DTs. PHYSICAL EXAMINATION: CHEST: Clear. CARDIAC: Normal. ABDOMEN: Soft and nontender. IMPRESSION: 1. Nausea and vomiting. 2. Dehydration. 3. Acute kidney injury. 4. Chronic alcoholism. 5. Cirrhosis. PLAN: Continue with IV fluids and repeat labs. MMODL / IJN: [id number] /
[2023-01-03 13:17] VITALS: BP 145/88; PULSE 59
--- NOTE | 2023-01-04 16:14 | DS ---
DISCHARGE SUMMARY CHIEF COMPLAINT: Acute kidney injury and lactic acidosis. HISTORY OF PRESENT ILLNESS AND PHYSICAL EXAM: Details of this man's history and physical can be found in the initial workup. LABORATORY STUDIES: While he is in the hospital, he had laboratory studies, details of which can be found in the laboratory section of his chart. COURSE IN THE HOSPITAL: After admission, he was placed at bedrest and started on intravenous fluids, and dehydration was corrected along with his electrolytes. He did not go into DTs. He improved and was doing well and it was felt that he could be discharged on . FINAL DIAGNOSES: 1. Acute kidney injury. 2. Dehydration. 3. Chronic alcoholism. OPERATIONS: None. CONSULTATION: None. He is improved. MMODL / IJN: [id number] /
--- NOTE | 2023-01-04 16:20 | PN ---
PROGRESS NOTE DATE OF SERVICE: 01/02/2023 CHIEF COMPLAINT: Acute kidney injury, dehydration, and electrolyte imbalance with alcoholism. HISTORY OF PRESENT ILLNESS: This gentleman is doing a little bit better. He is not vomiting. Numbers are improving. His sodium and potassium were still slightly low. PHYSICAL EXAMINATION: CHEST: Clear. CARDIAC: Normal. ABDOMEN: Soft and nontender. VITAL SIGNS: His blood pressure is slightly elevated. IMPRESSION: 1. Dehydration. 2. Acute kidney injury. 3. Electrolyte imbalance. 4. Hypertension. 5. Alcoholism. PLAN: Continue with current program and reassess the laboratory studies tomorrow. MMODL / IJN: [id number] /
== END 2023-01-03 17:40 | disposition home or self-care (01) | DRG 469 ==
LOC: EC 12:38 → 6NMEDSUR 18:18 → OBSVTOIN 18:19 → 6NMEDSUR 20:24
PROVIDERS: ADMIT Family Medicine; ATTEND Family Medicine
DX: N17.9 Acute kidney failure, unspecified (principal); E86.0 Dehydration; E78.5 Hyperlipidemia, unspecified; Z20.822 Contact with and (suspected) exposure to COVID-19; F10.20 Alcohol dependence, uncomplicated; I10 Essential (primary) hypertension; E87.20 Acidosis, unspecified; F17.290 Nicotine dependence, other tobacco product, uncomplicated; I48.91 Unspecified atrial fibrillation; M19.90 Unspecified osteoarthritis, unspecified site; K29.20 Alcoholic gastritis without bleeding; J44.89 Other specified chronic obstructive pulmonary disease; G89.29 Other chronic pain; M54.2 Cervicalgia; M54.9 Dorsalgia, unspecified; Z79.02 Long term (current) use of antithrombotics/antiplatelets; Z79.82 Long term (current) use of aspirin; Z82.49 Family history of ischemic heart disease and other diseases of the circulatory system; Z95.1 Presence of aortocoronary bypass graft
CPT/HCPCS: 36415; 71046; 74176; 80053; 80306; 80320; 81003; 82150; 83605; 83690; 84484; 85025; 86308; 87636; 93005; 96361; 96374; 96375; 99285

== ENCOUNTER 2023-02-20 05:38 | Inpatient (IN) | payer OTHER ==
[2023-02-20 07:40] LABS: Basophils % (A) 1 %; Eosinophils # (A) 0.1 k/uL (0-0.7); Eosinophils % (A) 1 %; HCT 41.6 % (39.0-53.0); HGB 14.3 gm/dL (13.0-17.5); Lymphocytes # (A) 1.5 k/uL (1.0-4.8); Lymphocytes % (A) 25 %; MCH 32.8 pg (25.0-35.0); MCHC 34.3 g/dL (31.0-37.0); MCV 95.4 fL (80.0-100.0); Mean Platelet Volume 7.3; Monocytes # (A) 0.3 k/uL (0-1.0); Monocytes % (A) 5 %; Neutrophils # (A) 3.9 k/uL (1.3-7.7); Neutrophils % (A) 67 %; Platelet Count 304 k/uL (150-450); RBC 4.35 m/uL (4.30-5.90); RDW 13.7 % (11.5-15.5); WBC 5.9 k/uL (3.8-10.6)
[2023-02-20 07:51] LABS: ALT 38 U/L (4-49); AST 70 U/L (17-59); African American GFR (CKD) >90 (>60 ml/min/1.73 sqM); Alkaline Phosphatase 50 U/L (38-126); Anion Gap 18 mmol/L; Blood Urea Nitrogen 6 mg/dL (9-20); Calcium 9.7 mg/dL (8.4-10.2); Carbon Dioxide 20 mmol/L (22-30); Chloride 107 mmol/L (98-107); Glucose 100 mg/dL (74-99); Magnesium 1.7 mg/dL (1.6-2.3); Non-African American GFR(CKD) 88 (>60 ml/min/1.73 sqM); Potassium 3.8 mmol/L (3.5-5.1); Sodium 145 mmol/L (137-145); Total Bilirubin 0.5 mg/dL (0.2-1.3); Total Protein 7.8 g/dL (6.3-8.2)
[2023-02-20] MEDS ORDERED: KETOROLAC 15 MG/ML 1 ML VIAL IVP STA (07:53)
[2023-02-20] MEDS ORDERED: MORPHINE SULFATE 4 MG/ML SYRINGE IVP STA (07:53)
[2023-02-20] MEDS ORDERED: SODIUM CHLORIDE 0.9% 1,000 ML IV STA ×2 (07:53→11:18)
[2023-02-20] MEDS ORDERED: NITROGLYCERIN SL TABS 0.4 MG TAB SUBLINGUAL STA (07:53)
[2023-02-20] MEDS ORDERED: FAMOTIDINE 20 MG/2 ML VIAL IV STA (07:54)
[2023-02-20 07:57] LABS: Partial Thromboplastin Time 23.6 sec (22.0-30.0); Prothrombin Time 10.6 sec (10.0-12.5)
[2023-02-20 08:04] LABS: Alcohol 300 mg/dL
--- NOTE | 2023-02-20 08:14 | XR ---
EXAMINATION TYPE: XR chest 2V DATE OF EXAM: 02/20/2023 6:23 AM CLINICAL INDICATION:Male, 57 years old with history of Chest Pain; [facility] COMPARISON: 12/31/2022 TECHNIQUE: XR chest 2V. Frontal PA and lateral views of the chest. FINDINGS: Lines/Tubes: None. Heart/mediastinum: Heart size is normal. Mediastinal silhouette is otherwise unremarkable. Multiple sternotomy wires. Left atrial appendage closure device. Pulmonary vascularity: Not increased, Lungs/Pleura: There is no evidence of pleural effusion, focal consolidation, or pneumothorax. Musculoskeletal: No acute osseous abnormality demonstrated in the limits of the exam. Other findings: None. IMPRESSION: No acute findings, or significant interval change.
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
[2023-02-20] MEDS ORDERED: LABETALOL 5 MG/ML VIAL MDV IVP STA (09:22)
[2023-02-20] MEDS ORDERED: HYDROmorphone 1 MG/ML 1 ML SYRINGE IVP STA (09:57)
[2023-02-20] MEDS ORDERED: ONDANSETRON 4 MG/2 ML VIAL IVP STA (09:57)
--- NOTE | 2023-02-20 10:55 | CT ---
EXAMINATION TYPE: CT abdomen pelvis w con CT DLP: 1057.6 mGycm, Automated exposure control for dose reduction was used. DATE OF EXAM: 02/20/2023 9:28 AM COMPARISON: Noncontrast CT 12/30/2022 CLINICAL INDICATION:Male, 57 years old with history of Lower abdominal pain; TECHNIQUE: Axial CT of the abdomen and pelvis. Sagittal and coronal reformats were created on a [employer] workstation. Contrast used: 100 mL of Isovue 300 with IV Contrast, (none if empty) Oral contrast used: without Oral Contrast (none if empty) FINDINGS: LOWER CHEST: Clear lung bases. Mildly prominent extrapleural fat without sizable effusions seen. Hear t size upper normal. Moderate to heavy coronary arterial calcifications. Partially seen sternotomy ch anges and wires. At least one wire is broken and nondisplaced. ABDOMEN LIVER: Unremarkable. Portal veins are enhancing. GALLBLADDER AND BILE DUCTS: Partially contracted gallbladder without evidence of calcified stones. No inflammation. No biliary dilatation. PANCREAS: Unremarkable. SPLEEN: Unremarkable. ADRENAL GLANDS: Mildly thickened, may be seen with hyperplasia.. KIDNEYS AND URETERS: Kidneys enhance symmetrically. No evidence of hydronephrosis or visible renal ca lculus. The ureters are unremarkable. A couple of partially exophytic low-attenuation nodules toward s the lower pole right kidney compatible with cysts measuring 2.3 cm and 1.4 cm. Each has a small prateek cification along its margin. PELVIS BLADDER: Base is mildly indented by the enlarged prostate, otherwise unremarkable. REPRODUCTIVE: Prostate appears enlarged measuring 4.7 cm transverse with a few central coarse calcifi cations. ABDOMEN & PELVIS STOMACH AND BOWEL: Assessment limited without oral contrast and nondistention. Any potential lesions would not be well assessed. Stomach and small bowel are nondistended, no evidence of obstruction. A ppendix appears surgically absent. Mild/moderate stool throughout colon without evidence of obstructi on. Colonic diverticula are present which do not appear inflamed. PERITONEUM/RETROPERITONEUM: No evidence of pneumoperitoneum or free fluid. VASCULATURE: Moderate atherosclerotic calcifications are present throughout the abdominal aorta and i ts branches. No evidence of aortic aneurysm. Aorta is somewhat tortuous. Mild narrowing of the proxim al celiac and superior mesenteric arteries. Mild narrowing of the proximal renal arteries. JAMES is pat ent. Proximal iliac arteries are 12 mm on the right, 13 mm on the left. The right common iliac artery soon shows a focal saccular aneurysm measuring 2.5 x 1.9 cm, which partially compresses the left com mon iliac vein against the spine. Diffuse calcifications throughout the iliac arterial trees without focal high-grade stenosis suggested. Portal veins are enhancing. Splenic vein is patent. LYMPH NODES: No gross evidence for lymphadenopathy. SOFT TISSUE/ABDOMINAL WALL: Small fat-containing left inguinal hernia. MUSCULOSKELETAL: No acute osseous abnormalities. Mild/moderate disc degeneration changes are present throughout the thoracolumbar spine. Small sclerotic density at the left body pedicle junction L2, st able since at least 05/2021. No evidence of destructive lesion. IMPRESSION: 1. No acute abnormality in the abdomen or pelvis. 2. Enlarged prostate gland, as above. Clinical and PSA correlation recommended. 3. Colonic diverticula are present which do not appear inflamed. 4. Appendectomy. 5. 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 Correlate clinically for any signs or symptoms of May-Thurner sy ndrome (iliac vein compression syndrome).
[2023-02-20] MEDS ORDERED: METOPROLOL TARTRATE 25 MG TAB PO STA (11:33)
[2023-02-20] MEDS ORDERED: lisinopriL 10 MG TAB PO STA (11:33)
[2023-02-20] MEDS ORDERED: NALOXONE 0.4 MG/ML 1 ML VIAL IV PRN (13:16)
[2023-02-20] MEDS ORDERED: HYDROmorphone 0.5 MG/0.5 ML SYRINGE IVP PRN (13:16)
[2023-02-20] MEDS ORDERED: ONDANSETRON 4 MG/2 ML VIAL IVP PRN (13:16)
[2023-02-20] MEDS ORDERED: ACETAMINOPHEN TAB 325 MG TAB PO PRN (13:16)
[2023-02-20] MEDS ORDERED: THIAMINE 100 MG/ML 2 ML VIAL IM STA (13:36)
[2023-02-20] MEDS ORDERED: LORazepam 2 MG/ML INJ IV PRN ×3 (13:36)
[2023-02-20] MEDS: HYDROmorphone 1 MG/ML 1 ML SYRINGE IVP PRN (16:19)
[2023-02-20] MEDS: METOPROLOL TARTRATE 25 MG TAB PO SCH (21:31)
[2023-02-21] MEDS: HYDROmorphone 1 MG/ML 1 ML SYRINGE IVP PRN ×4 (04:07→20:20)
[2023-02-21] MEDS: LORazepam 2 MG/ML INJ IV PRN (05:37)
[2023-02-21] MEDS: ASPIRIN 81 MG PO SCH (08:05)
[2023-02-21] MEDS: METOPROLOL TARTRATE 25 MG TAB PO SCH ×2 (08:05→20:19)
[2023-02-21] MEDS: THIAMINE 100 MG TAB PO SCH (08:05)
[2023-02-21] MEDS: ATORVASTATIN 10 MG TAB PO SCH (08:05)
[2023-02-21] MEDS: CHLORTHALIDONE 25 MG TAB PO SCH (08:06)
[2023-02-21] MEDS: CLOPIDOGREL 75 MG TAB PO SCH (08:06)
[2023-02-21] MEDS ORDERED: lisinopriL 10 MG TAB PO SCH (09:00)
[2023-02-21] MEDS ORDERED: DOBUTamine DRIP for NUC MED 500 MG in DEXTROSE/WATER 1 250ML.BAG IV PRN (10:15)
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
--- NOTE | 2023-02-21 17:13 | CA ---
Dobutamine Stress Echocardiogram Report Valdemar Flowers Age: 57 Gender: M : 1965 Exam Date: 02/21/2023 12:45 Exam Location: [facility] Ordering Physician: Hortensia Roper Referring Physician: [id number] Ordoñez Roustabout Crew Pusher: SIMIN,, Technologist: Ht (in): 68 Wt (lb): 208 Procedure CPT: Indication: CP ICD-9 Codes: Rhythm: Patient History: Chest pain, short of breath and palpitations Cardiac Medications: Medications in past 24 hours: Contrast: Total Dose (mL): Stress Results Protocol: Dobutamine Peak Dose (???g/kg/min): 40 Duration (min:sec): Atropine:(mg) Target HR: 140 Double Product: [id number] Resting HR: 69 Resting BP: 138 / 77 Peak HR: 143 Peak BP: 165 / 67 Max Predicted HR: 165 87 % Max Predicted HR Stress Summary: BP Response: Reason for Termination: Target HR,INFUSION COMPLETE Cardiac Symptoms: NO SYMPTOMS ECG Analysis Resting EKG: Normal sinus rhythm normal axis normal intervals Stress EKG: Patient was given intravenous dobutamine per protocol achieving 85% of predicted maximal heart rate Arrhythmia: None Echo Analysis Base Echo Analysis: Normal left ventricular size wall motion systolic function Low Echo Anaylsis: Normal Peak Echo Analysis: Normal hyperdynamic response Recovery Echo: Normal MEASUREMENTS (Male/Female) Normal Values CONCLUSIONS Negative dobutamine stress echo Dr. Lc Branch MD (Electronically Signed) Final Date: 21 February 2023 17:12
[2023-02-21] MEDS ORDERED: HYDROmorphone 2 MG TAB PO PRN (17:51)
[2023-02-21] MEDS ORDERED: NITROGLYCERIN SL TABS 0.4 MG TAB SUBLINGUAL PRN (17:52)
[2023-02-21] MEDS ORDERED: ONDANSETRON 4 MG TAB PO PRN (17:52)
[2023-02-21] MEDS: lisinopriL 20 MG TAB PO SCH (18:22)
[2023-02-21] MEDS: hydrALAZINE HCL 50 MG TAB PO SCH ×2 (20:04→20:19)
[2023-02-22] MEDS: HYDROmorphone 1 MG/ML 1 ML SYRINGE IVP PRN ×3 (01:46→08:03)
[2023-02-22 03:50] VITALS: TEMP 98.7
[2023-02-22 08:03] VITALS: PULSE 66; RESP 16
[2023-02-22] MEDS: lisinopriL 20 MG TAB PO SCH (08:04)
[2023-02-22] MEDS: CLOPIDOGREL 75 MG TAB PO SCH (08:04)
[2023-02-22] MEDS: CHLORTHALIDONE 25 MG TAB PO SCH (08:04)
[2023-02-22] MEDS: ATORVASTATIN 10 MG TAB PO SCH (08:04)
[2023-02-22] MEDS: hydrALAZINE HCL 50 MG TAB PO SCH (08:04)
[2023-02-22] MEDS: THIAMINE 100 MG TAB PO SCH (08:04)
[2023-02-22] MEDS: METOPROLOL TARTRATE 25 MG TAB PO SCH (08:04)
[2023-02-22] MEDS: ASPIRIN 81 MG PO SCH (08:04)
[2023-02-22] MEDS: LORazepam 2 MG/ML INJ IV PRN (10:24)
[2023-02-22] MEDS ORDERED: amLODIPine 5 MG TAB PO SCH (10:30)
--- NOTE | 2023-02-22 11:00 | P.PN ---
Subjective Progress Note Date: 02/22/23 Consult reason: chest pain History of present illness: HISTORY OF PRESENT ILLNESS: This is a 57-year-old male with a past medical history significant for hypertension, hyperlipidemia, coronary artery disease with previous CABG in 2021 with AZUL to LAD, diagonal and radial artery to OM and SVG to PDA, chronic neck and back pain, nicotine dependence, and alcohol abuse. Patient follows in the office with Dr. Savage. We have been asked to see the patient in consultation for chest pain. He presented to the emergency center with chest pain and abdominal pain. Chest pain is left-sided and sharp. Abdominal pain is in the lower abdomen along with nausea which he thinks is related to alcohol intake. He has had decreased appetite, nausea and diarrhea. He has been drinking excessive alcohol. Initial blood pressure was 190/105. Patient is seen today in the emergency center waiting for about on the observation unit. 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 EKG reveals sinus mechanism with no signs of acute ischemia Chest xray negative for acute process CAT scan of the abdomen and pelvis with contrast reveals no acute abnormality. Enlarged prostate. Colonic diverticula. Appendectomy. 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 Correlate for signs or symptoms of May Thurner syndrome CBC is unremarkable. INR 1. Sodium 145, potassium 3.8. BUN 6 and creatinine 0.97. Troponin negative 3. AST 70 otherwise liver function tests are normal. Serum alcohol level CCC. C. difficile toxin negative. Influenza A, influenza B, RSV, Covid 19 not detected. Current home cardiac medications include aspirin 81 mg daily, chlorthalidone 25 mg daily, Plavix 75 mg daily, lisinopril 10 mg daily, Lopressor 25 mg twice daily using nitroglycerin 0.4 mg as needed, Crestor 5 mg daily. Most recent echocardiogram obtained in September 2022 revealed ejection fraction 55-60%, mild tricuspid regurgitation 02/22 Yesterday, patient underwent a vitamin stress echocardiogram which came back negative. Patient states that his chest pain has subsided. He continues to have nausea he states all day yesterday and continued. Patient has had labile blood pressure readings 127/25246/103. Heart rate is running in the 60s to 80s, telemetry is sinus rhythm. PHYSICAL EXAM: VITAL SIGNS: Reviewed. GENERAL: Well-developed in no acute distress. HEENT: Head is normocephalic. Pupils are equal, round. Sclerae anicteric. Mucous membranes of the mouth are moist. Neck supple. No JVD or thyromegaly LUNGS: Respirations even and unlabored. Lungs essentially clear to auscultation bilaterally. HEART: Regular rate and rhythm. S1 and S2 heard. ABDOMEN: Soft. Nondistended. Nontender. EXTREMITIES: Normal range of motion. No clubbing or cyanosis. Peripheral pulses intact. No lower extremity edema NEUROLOGIC: Awake and alert. Oriented x 3. ASSESSMENT: Atypical chest pain, acute coronary syndrome ruled out Coronary artery disease with previous four-vessel CABG, 2021 Hyperlipidemia Hypertension History of medication noncompliance Nicotine dependence Alcohol abuse PLAN: Continue home cardiac medications Add amlodipine 5 mg daily Abstinence from alcohol recommended Patient is cleared for discharge from a follow-up and may follow up in the office with Dr. Savage in 2 weeks. Nurse practitioner note has been reviewed by physician. Signing provider agrees with the documented findings, assessment, and plan of care. Objective - Vital Signs Vital signs: Vital Signs Temp 98.7 F 02/22/23 07:10 Pulse 66 02/22/23 07:10 Resp 16 02/22/23 07:10 BP 156/103 02/22/23 07:10 Pulse Ox 97 02/22/23 07:10 FiO2 Intake & Output 02/21/23 02/22/23 02/22/23 18:59 06:59 18:59 Intake Total 118 Balance 118 Intake: Oral 118 Other: Voiding Method Toilet Toilet # Voids 3 - Labs CBC & Chem 7: 02/20/23 06:11 02/20/23 06:11
--- NOTE | 2023-02-22 11:32 | P.PN ---
Subjective Progress Note Date: 02/22/23 Is seen and examined today as a follow-up. Yesterday he underwent dobutamine stress test which was reported as abnormal stress test. Denies any chest pain. States he still having some left lower abdominal/groin pain. No further diarrhea since he's been in the hospital. Denies any upper abdominal pain, nausea or vomiting. States he has chronic back pain. Objective - Vital Signs Vital signs: Vital Signs Temp 98.7 F 02/22/23 07:10 Pulse 66 02/22/23 07:10 Resp 16 02/22/23 07:10 BP 156/103 02/22/23 07:10 Pulse Ox 97 02/22/23 07:10 FiO2 Intake & Output 02/21/23 02/22/23 02/22/23 18:59 06:59 18:59 Intake Total 118 Balance 118 Intake: Oral 118 Other: Voiding Method Toilet Toilet # Voids 3 - Exam General appearance: The patient is alert, oriented, appears in no acute distress. HET: Head is normocephalic and atraumatic. Pupils are equal and reactive. Neck: Supple. Heart: Regular. Lungs: Equal expansion, normal respiratory effort. Abdomen: Soft, nontender, nondistended. Extremities: Normal skin color and turgor. Palpable femoral, PT and DP pulses. Neurological: No focal deficits. Strength and sensation are grossly intact. - Labs CBC & Chem 7: 02/20/23 06:11 02/20/23 06:11 Assessment and Plan Assessment: 1. 2.5 x 1.9 cm saccular aneurysm of right common iliac artery per CT abdomen and pelvis with contrast 2. Chest pain 3. Abdominal pain with diarrhea 4. Alcohol Intoxication 5. History coronary artery disease status post stenting and CABG 6. Chronic atrial fibrillation 7. Alcohol abuse 8. Nicotine dependence Plan: Abdominal/pelvis CAT scan reviewed by Dr. Humphries. There is no indication for any vascular surgical intervention at this time. There is no iliac vein compression. Patient to follow-up in outpatient setting for further evaluation and imaging. Continue with rest of medical management per primary medical team. Maintain blood pressure control. Thank you for this consultation, Patient is cleared for discharge from vascular surgery. We will sign off at this time. The impression and plan of care has been dictated as directed. I performed a history and examination of this patient, discussed the same with the dictator. I agree with the dictator's note ,documented as a scribe. Any additional findings or plans will be noted.
[2023-02-22 12:08] VITALS: BP 134/80
--- NOTE | 2023-02-24 23:23 | HP ---
HISTORY AND PHYSICAL CHIEF COMPLAINT: Chest pain and alcoholism. HISTORY OF PRESENT ILLNESS: This is another of many admissions for this 57-year-old chronic alcoholic. He also has a history of coronary artery disease. He presented to the emergency room with chest pain where his evaluation was negative. Troponin was normal. He was admitted and will be further evaluated for his chest pain. He denies syncope, diaphoresis, orthopnea, shortness of breath, etc. REVIEW OF SYSTEMS: Otherwise normal. Past medical history, family history, personal and social histories are normal except as already mentioned. He is generally fairly compliant except for his episodes of drinking. He has been on rosuvastatin, aspirin, lisinopril, , Zofran, amiodarone, , and Plavix. He does smoke. PHYSICAL EXAMINATION: VITAL SIGNS: Blood pressure is 135/90 with a pulse of 92, respirations of 33, and he is afebrile. GENERAL: Appeared to be somewhat flushed. HEAD, EARS, EYES, NOSE, MOUTH AND THROAT: Normal. CHEST: Carotids are normal. The chest is clear. CARDIAC: Normal. ABDOMEN: Soft and nontender. EXTREMITIES: Normal. IMPRESSION: 1. Chest pain. 2. History of coronary artery disease. 3. Alcoholism. PLAN: 1. Bed rest. 2. IV fluids. 3. Serial EKGs and enzymes. 4. He will be seen by Cardiology. GLORIA / MAYURI: [id number] /
== END 2023-02-22 14:02 | disposition left against medical advice (07) | DRG 198 ==
LOC: EC 05:38 → 6NMEDSUR 14:06 → OBSVTOIN 14:07 → 6NMEDSUR 14:19
PROVIDERS: ADMIT Family Medicine; ATTEND Family Medicine
PROC: 4A02XM4 Measurement of Cardiac Total Activity, External Approach (ICD-10-PCS; principal; 2023-02-21)
PROC: 3E073KZ Introduction of Other Diagnostic Substance into Coronary Artery, Percutaneous Approach (ICD-10-PCS; 2023-02-21)
DX: R07.89 Other chest pain (principal); I72.3 Aneurysm of iliac artery; Z11.52 Encounter for screening for COVID-19; I48.20 Chronic atrial fibrillation, unspecified; I10 Essential (primary) hypertension; Z53.29 Procedure and treatment not carried out because of patient's decision for other reasons; I25.10 Atherosclerotic heart disease of native coronary artery without angina pectoris; J44.9 Chronic obstructive pulmonary disease, unspecified; Y90.8 Blood alcohol level of 240 mg/100 ml or more; G89.29 Other chronic pain; M54.9 Dorsalgia, unspecified; E78.5 Hyperlipidemia, unspecified; K57.30 Diverticulosis of large intestine without perforation or abscess without bleeding; F10.229 Alcohol dependence with intoxication, unspecified; N40.0 Benign prostatic hyperplasia without lower urinary tract symptoms; Z79.02 Long term (current) use of antithrombotics/antiplatelets; M54.2 Cervicalgia; F17.290 Nicotine dependence, other tobacco product, uncomplicated; Z79.82 Long term (current) use of aspirin; Z79.899 Other long term (current) drug therapy; Z82.49 Family history of ischemic heart disease and other diseases of the circulatory system; Z91.148 Patient's other noncompliance with medication regimen for other reason; Z95.1 Presence of aortocoronary bypass graft; Z95.5 Presence of coronary angioplasty implant and graft
CPT/HCPCS: 36415; 71046; 74177; 80053; 80320; 83735; 84484; 85025; 85610; 85730; 87324; 87636; 93005; 93351; 96361; 96374; 96375; 96376; 99285; 99406

== ENCOUNTER 2023-03-09 23:08 | Emergency (ER) | payer OTHER ==
[2023-03-09 23:37] VITALS: TEMP 98.7
[2023-03-09] MEDS ORDERED: SODIUM CHLORIDE 0.9% 1,000 ML IV ONE (23:42)
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
[2023-03-10 00:01] LABS: Basophils % (A) 1 %; Eosinophils # (A) 0.1 k/uL (0-0.7); Eosinophils % (A) 1 %; HCT 34.5 % (39.0-53.0); HGB 12.3 gm/dL (13.0-17.5); Lymphocytes % (A) 29 %; MCH 34.2 pg (25.0-35.0); MCHC 35.7 g/dL (31.0-37.0); MCV 95.9 fL (80.0-100.0); Mean Platelet Volume 7.5; Monocytes # (A) 0.5 k/uL (0-1.0); Monocytes % (A) 7 %; Neutrophils # (A) 4.1 k/uL (1.3-7.7); Neutrophils % (A) 60 %; Platelet Count 238 k/uL (150-450); WBC 6.8 k/uL (3.8-10.6)
[2023-03-10 00:38] LABS: ALT 21 U/L (4-49); AST 32 U/L (17-59); African American GFR (CKD) 49 (>60 ml/min/1.73 sqM); Albumin 4.4 g/dL (3.5-5.0); Alkaline Phosphatase 39 U/L (38-126); Anion Gap 15 mmol/L; Blood Urea Nitrogen 22 mg/dL (9-20); Calcium 9.3 mg/dL (8.4-10.2); Carbon Dioxide 20 mmol/L (22-30); Chloride 101 mmol/L (98-107); Glucose 115 mg/dL (74-99); Non-African American GFR(CKD) 42 (>60 ml/min/1.73 sqM); Potassium 3.9 mmol/L (3.5-5.1); Sodium 136 mmol/L (137-145); Total Bilirubin 0.4 mg/dL (0.2-1.3); Total Protein 6.8 g/dL (6.3-8.2)
[2023-03-10 00:52] LABS: Alcohol 275 mg/dL
[2023-03-10 01:16] VITALS: RESP 18
[2023-03-10 06:48] VITALS: BP 100/61; PULSE 65
== END 2023-03-10 06:39 | disposition home or self-care (01) ==
LOC: EC 23:08
DX: F10.129 Alcohol abuse with intoxication, unspecified (principal); E78.5 Hyperlipidemia, unspecified; I10 Essential (primary) hypertension; I48.91 Unspecified atrial fibrillation; J44.9 Chronic obstructive pulmonary disease, unspecified; F17.290 Nicotine dependence, other tobacco product, uncomplicated; F12.90 Cannabis use, unspecified, uncomplicated; Y90.8 Blood alcohol level of 240 mg/100 ml or more; Z86.59 Personal history of other mental and behavioral disorders; Z79.899 Other long term (current) drug therapy; Z79.82 Long term (current) use of aspirin; Z95.1 Presence of aortocoronary bypass graft
CPT/HCPCS: 36415; 93005; 80053; 85025; 99284; 96360; G0480; 80320

== ENCOUNTER 2023-03-13 23:37 | Emergency (ER) | payer OTHER ==
[2023-03-14 01:08] LABS: Basophils % (A) 0 %; Eosinophils # (A) 0.1 k/uL (0-0.7); Eosinophils % (A) 1 %; HCT 38.4 % (39.0-53.0); HGB 13.2 gm/dL (13.0-17.5); Lymphocytes % (A) 27 %; MCH 32.8 pg (25.0-35.0); MCHC 34.5 g/dL (31.0-37.0); Mean Platelet Volume 7.3; Monocytes # (A) 0.5 k/uL (0-1.0); Monocytes % (A) 6 %; Neutrophils # (A) 4.8 k/uL (1.3-7.7); Neutrophils % (A) 64 %; Platelet Count 297 k/uL (150-450); RBC 4.04 m/uL (4.30-5.90); WBC 7.6 k/uL (3.8-10.6)
[2023-03-14 01:23] LABS: ALT 25 U/L (4-49); AST 43 U/L (17-59); African American GFR (CKD) 76 (>60 ml/min/1.73 sqM); Albumin 4.9 g/dL (3.5-5.0); Alkaline Phosphatase 44 U/L (38-126); Anion Gap 13 mmol/L; Blood Urea Nitrogen 12 mg/dL (9-20); Calcium 9.9 mg/dL (8.4-10.2); Carbon Dioxide 23 mmol/L (22-30); Chloride 100 mmol/L (98-107); Glucose 100 mg/dL (74-99); Magnesium 1.2 mg/dL (1.6-2.3); Non-African American GFR(CKD) 66 (>60 ml/min/1.73 sqM); Potassium 3.4 mmol/L (3.5-5.1); Sodium 136 mmol/L (137-145); Total Bilirubin 0.4 mg/dL (0.2-1.3); Total Protein 7.5 g/dL (6.3-8.2)
[2023-03-14 01:58] LABS: Alcohol 237 mg/dL
[2023-03-14] MEDS ORDERED: MAGNESIUM OXIDE 400 MG TAB PO STA (05:58)
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
[2023-03-14 06:37] VITALS: BP 131/85; PULSE 78; RESP 16; TEMP 97.8
== END 2023-03-14 06:33 | disposition home or self-care (01) ==
LOC: EC 23:37
DX: F10.129 Alcohol abuse with intoxication, unspecified (principal); R42 Dizziness and giddiness; R10.9 Unspecified abdominal pain; E83.42 Hypomagnesemia; E78.5 Hyperlipidemia, unspecified; I10 Essential (primary) hypertension; I48.91 Unspecified atrial fibrillation; J44.9 Chronic obstructive pulmonary disease, unspecified; F17.290 Nicotine dependence, other tobacco product, uncomplicated; F12.90 Cannabis use, unspecified, uncomplicated; Y90.7 Blood alcohol level of 200-239 mg/100 ml; Z86.59 Personal history of other mental and behavioral disorders; Z79.899 Other long term (current) drug therapy; Z79.82 Long term (current) use of aspirin
CPT/HCPCS: 82075; 36415; 93005; 80053; 83605; 83735; 84484; 85025; 99284; G0480; 80320

== ENCOUNTER 2023-03-16 21:12 | Emergency (ER) | payer OTHER ==
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
[2023-03-16 22:27] VITALS: TEMP 98.2
[2023-03-16 22:47] LABS: HCT 37.8 % (39.0-53.0); HGB 13.2 gm/dL (13.0-17.5); MCHC 35.1 g/dL (31.0-37.0); MCV 94.2 fL (80.0-100.0); Mean Platelet Volume 7.6; Platelet Count 308 k/uL (150-450); RBC 4.01 m/uL (4.30-5.90); RDW 13.4 % (11.5-15.5); WBC 8.2 k/uL (3.8-10.6)
[2023-03-16 23:00] LABS: ALT 33 U/L (4-49); AST 58 U/L (17-59); African American GFR (CKD) 65 (>60 ml/min/1.73 sqM); Albumin 4.8 g/dL (3.5-5.0); Alkaline Phosphatase 54 U/L (38-126); Amylase 96 U/L (30-110); Anion Gap 15 mmol/L; Blood Urea Nitrogen 16 mg/dL (9-20); Calcium 9.4 mg/dL (8.4-10.2); Carbon Dioxide 20 mmol/L (22-30); Chloride 101 mmol/L (98-107); Glucose 107 mg/dL (74-99); Lipase 360 U/L (23-300); Non-African American GFR(CKD) 56 (>60 ml/min/1.73 sqM); Sodium 136 mmol/L (137-145); Total Bilirubin 0.5 mg/dL (0.2-1.3); Total Protein 7.4 g/dL (6.3-8.2)
[2023-03-17] MEDS: KETOROLAC 15 MG/ML 1 ML VIAL IM STA (03:26)
[2023-03-17 03:42] LABS: Appearance,Urine Clear (Clear); Bilirubin,Urine Negative (Negative); Blood,Urine Negative (Negative); Color,Urine Yellow; Glucose,Urine (UA) Negative (Negative); Ketones,Urine Negative (Negative); Leukocyte Esterase,Urine Negative (Negative); Nitrite,Urine Negative (Negative); Protein,Urine Negative (Negative); Specific Gravity,Urine 1.016 (1.001-1.035); Urobilinogen,Urine <2.0 mg/dL (<2.0)
--- NOTE | 2023-03-17 03:43 | XR ---
EXAMINATION TYPE: XR KUB DATE OF EXAM: 03/17/2023 3:32 AM CLINICAL HISTORY: Lower abdominal pain with intermittent nausea TECHNIQUE: Two Upright KUB images of the abdomen are obtained. COMPARISON: CT abdomen and pelvis February 20, 2023 FINDINGS: Scattered gas is seen in non-distended small bowel loops. Gas and fecal material is seen in non-distended colon. Overlying Sternal wires and left atrial appendage are redemonstrated. No free a ir. Osseous structures are intact. Lung bases are grossly clear. IMPRESSION: Overall nonobstructive bowel gas pattern.
[2023-03-17] MEDS: ONDANSETRON ODT 4 MG TAB PO STA (04:55)
[2023-03-17] MEDS: MORPHINE SULFATE 2 MG/ML SYRINGE IM STA (05:16)
[2023-03-17 05:51] VITALS: BP 126/83; PULSE 72; RESP 18
== END 2023-03-17 05:39 | disposition home or self-care (01) ==
LOC: EC 21:12
DX: R10.84 Generalized abdominal pain (principal); I10 Essential (primary) hypertension; J44.9 Chronic obstructive pulmonary disease, unspecified; E78.5 Hyperlipidemia, unspecified; F17.290 Nicotine dependence, other tobacco product, uncomplicated; F12.90 Cannabis use, unspecified, uncomplicated; Z79.82 Long term (current) use of aspirin; Z79.899 Other long term (current) drug therapy; Z90.49 Acquired absence of other specified parts of digestive tract
CPT/HCPCS: 36415 ×2; 80053; 82150; 83605 ×2; 83690; 85027; 81003; 74018; 99284; 96372 ×2; J2270; J1885

== ENCOUNTER 2023-04-03 06:55 | Emergency (ER) | payer OTHER ==
[2023-04-03 07:22] VITALS: BP 136/84; PULSE 66; RESP 18; TEMP 98.1
[2023-04-03 07:37] LABS: Basophils % (A) 1 %; Eosinophils # (A) 0.1 k/uL (0-0.7); Eosinophils % (A) 2 %; HCT 36.3 % (39.0-53.0); HGB 12.8 gm/dL (13.0-17.5); Lymphocytes # (A) 2.1 k/uL (1.0-4.8); Lymphocytes % (A) 26 %; MCH 34.2 pg (25.0-35.0); MCHC 35.4 g/dL (31.0-37.0); MCV 96.6 fL (80.0-100.0); Mean Platelet Volume 7.3; Monocytes # (A) 0.4 k/uL (0-1.0); Monocytes % (A) 5 %; Neutrophils # (A) 5.1 k/uL (1.3-7.7); Neutrophils % (A) 64 %; Platelet Count 260 k/uL (150-450); RBC 3.76 m/uL (4.30-5.90); RDW 12.5 % (11.5-15.5); WBC 7.9 k/uL (3.8-10.6)
[2023-04-03 07:48] LABS: INR 0.9 (<1.2); Partial Thromboplastin Time 23.1 sec (22.0-30.0); Prothrombin Time 10.5 sec (10.0-12.5)
[2023-04-03 07:54] LABS: ALT 22 U/L (4-49); AST 35 U/L (17-59); African American GFR (CKD) 81 (>60 ml/min/1.73 sqM); Albumin 4.5 g/dL (3.5-5.0); Alkaline Phosphatase 47 U/L (38-126); Anion Gap 15 mmol/L; Blood Urea Nitrogen 9 mg/dL (9-20); Calcium 9.4 mg/dL (8.4-10.2); Carbon Dioxide 22 mmol/L (22-30); Chloride 103 mmol/L (98-107); Glucose 120 mg/dL (74-99); Lipase 203 U/L (23-300); Magnesium 1.4 mg/dL (1.6-2.3); Non-African American GFR(CKD) 70 (>60 ml/min/1.73 sqM); Potassium 3.3 mmol/L (3.5-5.1); Sodium 140 mmol/L (137-145); Total Bilirubin 0.5 mg/dL (0.2-1.3)
[2023-04-03] MEDS: NITROGLYCERIN SL TABS 0.4 MG TAB SUBLINGUAL STA (07:55)
--- NOTE | 2023-04-03 07:56 | XR ---
EXAMINATION TYPE: XR chest 2V DATE OF EXAM: 04/03/2023 7:27 AM CLINICAL INDICATION:Male, 57 years old with history of Chest Pain; COMPARISON: Chest radiographs from 02/20/2023. TECHNIQUE: XR chest 2V Frontal and lateral views of the chest. FINDINGS: Lungs/Pleura: There is no evidence of pleural effusion, focal consolidation, or pneumothorax. Pulmonary vascularity: Unremarkable. Heart/mediastinum: Cardiomediastinal silhouette is unremarkable. Left atrial appendage occlusion tarah ce is present. Musculoskeletal: No acute osseous pathology. Midline sternotomy wires are noted. Other findings: None IMPRESSION: No acute cardiopulmonary disease/process.
[2023-04-03 08:02] LABS: NT-Pro-B-Type Natriuretic Pept 261 pg/mL
[2023-04-03 08:03] LABS: Alcohol 249 mg/dL
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
[2023-04-03] MEDS ORDERED: NITROGLYCERIN SL TABS 0.4 MG TAB SUBLINGUAL PRN (09:11)
[2023-04-03] MEDS ORDERED: LORazepam 0.5 MG TAB PO PRN (09:12)
[2023-04-03] MEDS ORDERED: ONDANSETRON 4 MG TAB PO PRN (09:12)
[2023-04-03] MEDS ORDERED: LORazepam 1 MG TAB PO PRN ×3 (09:12)
[2023-04-03] MEDS ORDERED: THIAMINE 100 MG/ML 2 ML VIAL IM STA (09:12)
--- NOTE | 2023-04-03 12:39 | HP ---
HISTORY AND PHYSICAL CHIEF COMPLAINT: Chest pain. HISTORY OF PRESENT ILLNESS: This is another admission for this 57-year-old alcoholic. He has a history of coronary artery disease and has had a 4-vessel CABG in the past. He has chronic alcoholic, who can't stop drinking. In addition to that, he is frequently in the office complaining of back pain. He was in the office a day prior, to the ER. He presented to the ER on the day of admission, intoxicated and complaining of back pain. Because of his intoxication, it was felt he could not be sent home. He has been admitted for detox and evaluation of his chest pain. He was demanding analgesics in the emergency room and was informed that he could not be given any in his intoxicated state. REVIEW OF SYSTEMS: Unremarkable. Past medical history, family history, and personal and social histories reveal that he is supposed to be on, 1. Spironolactone. 2. Clonidine. 3. Trazodone. 4. Acamprosate. 5. Naltrexone. 6. Lisinopril. 7. Rosuvastatin. 8. Aspirin. 9. Oxycodone. 10.Zofran. 11.Amiodarone. 12.Metoprolol. 13.Plavix. SOCIAL HISTORY: He does smoke and he drinks heavily and is intoxicated. PHYSICAL EXAMINATION: VITAL SIGNS: Blood pressure is 132/76 with a pulse of 112, respirations 14. He is afebrile. GENERAL: He appeared to be intoxicated. HEENT: Face was flushed. Head, ears, eyes, nose, mouth, and throat were otherwise normal. CHEST: Demonstrated scattered rales. CARDIAC: Demonstrated sinus tachycardia. ABDOMEN: Slightly protuberant, soft and there was probable ascites. EXTREMITIES: Normal and he was intoxicated. ASSESSMENT: He was admitted to the hospital with diagnoses of: 1. Chest pain. 2. Acute alcohol intoxication. 3. Impending delirium tremens. 4. History of coronary artery disease with coronary artery bypass graft. PLAN: 1. Bedrest. 2. IV fluids. 3. CIWA protocol. GLORIA / MAYURI: [id number] /
[2023-04-03] MEDS ORDERED: METOPROLOL TARTRATE 25 MG TAB PO SCH (21:00)
[2023-04-04] MEDS ORDERED: ASPIRIN 325 MG TAB PO SCH (09:00)
[2023-04-04] MEDS ORDERED: THIAMINE 100 MG TAB PO SCH (09:00)
[2023-04-04] MEDS ORDERED: lisinopriL 10 MG TAB PO SCH (09:00)
[2023-04-04] MEDS ORDERED: CLOPIDOGREL 75 MG TAB PO SCH (09:00)
[2023-04-04] MEDS ORDERED: MAGNESIUM OXIDE 400 MG TAB PO SCH (09:00)
--- NOTE | 2023-04-05 07:43 | DS ---
DISCHARGE SUMMARY He was in the emergency room, admitted on the , and then signed out from the emergency room. CHIEF COMPLAINT: Chest pain and chronic alcoholism. HISTORY OF PRESENT ILLNESS AND PHYSICAL EXAMINATION: Details of this man's history and physical can be found in the initial workup. LABORATORY STUDIES: While he was in the hospital, he had laboratory studies, details of which can be found in the laboratory section of his chart. COURSE IN THE HOSPITAL: After admission, he was placed on bedrest, started on intravenous fluids, and was to be admitted and worked up for chest pain. He has had a history of extensive coronary artery disease with a previous coronary artery bypass graft. In the emergency room, he requested analgesics and because he was acutely intoxicated, these refused and he signed out AMA. FINAL DIAGNOSES: 1. Chest pain. 2. Acute alcohol intoxication. 3. History of coronary artery disease. 4. Chronic alcoholism. OPERATIONS: None. CONSULTATION: None. He signed out AMA. GLORIA / MAYURI: [id number] /
== END 2023-04-03 09:25 | disposition other institution (70) ==
LOC: EC 06:55
DX: F10.129 Alcohol abuse with intoxication, unspecified (principal); R07.9 Chest pain, unspecified; E78.5 Hyperlipidemia, unspecified; J44.9 Chronic obstructive pulmonary disease, unspecified; I10 Essential (primary) hypertension; Y90.8 Blood alcohol level of 240 mg/100 ml or more; I48.91 Unspecified atrial fibrillation; F17.290 Nicotine dependence, other tobacco product, uncomplicated; F12.90 Cannabis use, unspecified, uncomplicated; Z86.59 Personal history of other mental and behavioral disorders; Z79.82 Long term (current) use of aspirin; Z79.899 Other long term (current) drug therapy; Z79.02 Long term (current) use of antithrombotics/antiplatelets
CPT/HCPCS: 36415; 93005; 83880; 80053; 83690; 83735; 84484; 85025; 85610; 85730; 71046; 99285; G0480; 80320

== ENCOUNTER 2023-04-08 09:54 | Emergency (ER) | payer SELFPAY ==
[2023-04-08 10:39] VITALS: BP 148/86; PULSE 82; RESP 16; TEMP 98.2
--- NOTE | 2023-04-08 10:45 | ED ---
Alcohol HPI - General Chief Complaint: Alcohol Stated Complaint: Alcohol Time Seen by Provider: 04/08/23 09:56 Source: patient, EMS, RN notes reviewed Mode of arrival: EMS Limitations: no limitations - History of Present Illness Initial Comments: 57-year-old male presents emergency department with chief complaint of back pain. Patient's overall Emergency Department does admit to alcohol use. Patient is a daily drinker. Patient denies complaints of shortness of breath. He states he has pain everywhere and is requesting narcotic pain meds. Patient normally takes oxycodone. Patient denies any bowel, bladder Retention no abdominal complaints. Patient was brought in via EMS and was combative with EMS. - Related Data Allergies Allergy/AdvReac Type Severity Reaction Status Date / Time No Known Allergies Allergy Verified 04/08/23 10:11 Review of Systems ROS Statement: Those systems with pertinent positive or pertinent negative responses have been documented in the HPI. ROS Other: All systems not noted in ROS Statement are negative. Past Medical History Past Medical History: Hypertension History of Any Multi-Drug Resistant Organisms: None Reported Past Alcohol Use History: Abuse, Daily, Heavy Past Drug Use History: Unable to Obtain General Exam Limitations: no limitations General appearance: alert, in no apparent distress, appears intoxicated Head exam: Present: atraumatic, normocephalic, normal inspection Eye exam: Present: normal appearance, PERRL, EOMI. Absent: scleral icterus, conjunctival injection, periorbital swelling ENT exam: Present: normal exam, normal oropharynx, mucous membranes moist Neck exam: Present: normal inspection, full ROM. Absent: tenderness, meningismus, lymphadenopathy Respiratory exam: Present: normal lung sounds bilaterally. Absent: respiratory distress, wheezes, rales, rhonchi, stridor Cardiovascular Exam: Present: regular rate, normal rhythm, normal heart sounds. Absent: systolic murmur, diastolic murmur, rubs, gallop, clicks GI/Abdominal exam: Present: soft, normal bowel sounds. Absent: distended, tenderness, guarding, rebound, rigid Back exam: Present: normal inspection, full ROM, tenderness Neurological exam: Present: alert Skin exam: Present: warm, dry, intact, normal color. Absent: rash Course Vital Signs 04/08/23 10:08 Temperature 98.2 F Pulse Rate 82 Respiratory 16 Rate Blood Pressure 148/86 O2 Sat by Pulse 99 Oximetry Medical Decision Making - Medical Decision Making Was pt. sent in by a medical professional or institution (MACKENZIE Aguirre, PLATE PAINTER, urgent care, hospital, or long term...) When possible be specific @ -No Did you speak to anyone other than the patient for history (EMS, parent, family, police, friend...)? What history was obtained from this source @ -No Did you review nursing and triage notes (agree or disagree)? Why? @ -I reviewed and agree with nursing and triage notes Were old charts reviewed (outside hosp., previous admission, EMS record, old EKG, old radiological studies, urgent care reports/EKG's, long term records)? Report findings @ -Reviewed reviewed prior records including labs and imaging d Differential Diagnosis (chest pain, altered mental status, abdominal pain women, abdominal pain men, vaginal bleeding, weakness, fever, dyspnea, syncope, headache, dizziness, GI bleed, back pain, seizure, CVA, palpatations, mental health, musculoskeletal)? @ -[Alcohol intoxication, alcohol abuse, back pain EKG interpreted by me (3pts min.). @ -As above X-rays interpreted by me (1pt min.). @ -None done CT interpreted by me (1pt min.). @ -None done U/S interpreted by me (1pt. min.). @ -None done What testing was considered but not performed or refused? (CT, X-rays, U/S, labs)? Why? @ -None What meds were considered but not given or refused? Why? @ -None Did you discuss the management of the patient with other professionals (professionals i.e. MACKENZIE Aguirre, PLATE PAINTER, lab, RT, psych nurse, social insurance analyst, lock expert, teacher, adult probation officer, skilled nursing case manager)? Give summary @ -No Was smoking cessation discussed for >3mins.? @ -No Was critical care preformed (if so, how long)? @ -No Were there social determinants of health that impacted care today? How? (Homelessness, low income, unemployed, alcoholism, drug addiction, transportation, low edu. Level, literacy, decrease access to med. care, custodial, rehab)? @ -No Was there de-escalation of care discussed even if they declined (Discuss DNR or withdrawal of care, Hospice)? DNR status @ -No What co-morbidities impacted this encounter? (DM, HTN, Smoking, COPD, CAD, Cancer, CVA, ARF, Chemo, Hep., AIDS, mental health diagnosis, sleep apnea, morbid obesity)? @ -[Alcohol abuse, chronic pain Was patient admitted / discharged? Hospital course, mention meds given and route, prescriptions, significant lab abnormalities, going to OR and other pertinent info. @ -Discharge patient was observed in the emergency department for several hours patient is awake alert and oriented. Patient will be discharged in stable condition return parameters discussed Undiagnosed new problem with uncertain prognosis? @ -[No Drug Therapy requiring intensive monitoring for toxicity (Heparin, Nitro, Insulin, Cardizem)? @ -No Were any procedures done? @ -No Diagnosis/symptom? @ -Alcohol intoxication, chronic pain Acute, or Chronic, or Acute on Chronic? @ -Acute, chronic Uncomplicated (without systemic symptoms) or Complicated (systemic symptoms)? @ -Uncomplicated Side effects of treatment? @ -No Exacerbation, Progression, or Severe Exacerbation? @ -No Poses a threat to life or bodily function? How? (Chest pain, USA, NH, pneumonia, PE, COPD, DKA, ARF, appy, cholecystitis, CVA, Diverticulitis, Homicidal, Suicidal, threat to staff... and all critical care pts) @ -No - EKG Data -: EKG Interpreted by Me EKG Comments: EKG performed at 10: 40 sinus rhythm with a rate of 81 WA 204 QRS 86 QT/QTc 366/[address] elevation depression noted. Disposition Clinical Impression: Alcoholic intoxication, Chronic pain Disposition: HOME SELF-CARE Condition: Stable Additional Instructions: Please return to the Emergency Department if symptoms worsen or any other concerns. Is patient prescribed a controlled substance at d/c from ED?: No Referrals: None,Stated [Primary Care Provider] - 1-2 days Time of Disposition: 13:52
[2023-04-08] MEDS: droPERidol 5 MG/2 ML VIAL IVP ONE (10:46)
== END 2023-04-08 16:13 | disposition home or self-care (01) ==
LOC: EC 09:54 → EDBD 09:54 → MERGE 09:54 → EC 16:13
DX: F10.129 Alcohol abuse with intoxication, unspecified (principal); G89.29 Other chronic pain; I10 Essential (primary) hypertension
CPT/HCPCS: 99284; 96374; 93005; J1790

== ENCOUNTER 2023-04-27 18:51 | Emergency (ER) | payer OTHER ==
[2023-04-27] MEDS: MORPHINE SULFATE 4 MG/ML SYRINGE IM STA (19:14)
[2023-04-27 19:22] VITALS: RESP 16; TEMP 98.5
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
--- NOTE | 2023-04-27 21:32 | XR ---
EXAMINATION TYPE: XR chest 2V DATE OF EXAM: 04/27/2023 8:52 PM CLINICAL INDICATION:Male, 57 years old with history of pain; [facility] COMPARISON: 04/03/2023 TECHNIQUE: XR chest 2V. Frontal and lateral views of the chest.. FINDINGS: Status post cardiothoracic surgery with multiple sternal wires in place. There is a left atrial occlu sendy device. Heart size is upper normal. Mildly tortuous aorta. Central airway appears patent. Lungs are clear. No pneumothorax or effusion. No acute bony abnormality is seen. IMPRESSION: 1. Mild cardiomegaly with postoperative changes, similar to previous. 2. No acute disease.
--- NOTE | 2023-04-27 21:46 | XR ---
EXAMINATION TYPE: XR knee 4V LT DATE OF EXAM: 04/27/2023 8:55 PM CLINICAL INDICATION:Male, 57 years old with history of pain; [facility] COMPARISON: None. TECHNIQUE: XR knee 4V LT; examined in Frontal, lateral, oblique and sunrise patellar views. FINDINGS: Osseous mineralization appears appropriate. No evidence of destructive lesion or aggressive periostit is. There is subtle curvilinear lucency seen through the medial aspect of the patella, concerning for nondisplaced fracture in the setting of trauma. Differential includes bipartite patella, though this is most often seen at the superolateral aspect. No dislocation. Mild degenerative narrowing of the medial compartment, joint spaces appear otherwise maintained. There is no significant joint effusion identified. [place] view shows the patellofemoral alignment is intact. Mild prepatellar soft tissue swelling is not excluded. No radiopaque foreign bod y is seen. IMPRESSION: Findings raise concern for possible nondisplaced patellar fracture, correlate clinically.
[2023-04-27 22:49] VITALS: BP 164/88; PULSE 74
== END 2023-04-27 22:36 | disposition home or self-care (01) ==
LOC: EC 18:51
DX: S89.92XA Unspecified injury of left lower leg, initial encounter (principal); I67.82 Cerebral ischemia; M47.812 Spondylosis without myelopathy or radiculopathy, cervical region; F12.90 Cannabis use, unspecified, uncomplicated; V99.XXXA Unspecified transport accident, initial encounter; Y93.55 Activity, bike riding
CPT/HCPCS: 73564; 71046; 72125; 70450; 99285; 96372; J2270

== ENCOUNTER 2023-06-09 00:36 | Emergency (ER) | payer OTHER ==
[2023-06-09] MEDS: ASPIRIN 81 MG PO STA (01:25)
[2023-06-09] MEDS: MORPHINE SULFATE 2 MG/ML SYRINGE IVP STA (01:26)
[2023-06-09 01:33] LABS: Basophils % (A) 1 %; Eosinophils # (A) 0.2 k/uL (0-0.7); Eosinophils % (A) 2 %; HCT 36.5 % (39.0-53.0); HGB 12.6 gm/dL (13.0-17.5); Lymphocytes # (A) 1.7 k/uL (1.0-4.8); Lymphocytes % (A) 26 %; MCH 32.8 pg (25.0-35.0); MCHC 34.4 g/dL (31.0-37.0); MCV 95.4 fL (80.0-100.0); Mean Platelet Volume 7.9; Monocytes # (A) 0.3 k/uL (0-1.0); Monocytes % (A) 5 %; Neutrophils # (A) 4.4 k/uL (1.3-7.7); Neutrophils % (A) 65 %; Platelet Count 252 k/uL (150-450); RBC 3.83 m/uL (4.30-5.90); RDW 13.5 % (11.5-15.5); WBC 6.8 k/uL (3.8-10.6)
--- NOTE | 2023-06-09 02:09 | XR ---
EXAM: XR Chest, 2 Views CLINICAL HISTORY: Chest Pain TECHNIQUE: Frontal and lateral views of the chest. COMPARISON: April 27, 2023 FINDINGS: Lungs: Unremarkable. No infiltration, atelectasis or mass density. Pleural space: Unremarkable. No pneumothorax. No pleural fluid. Heart: Unremarkable. No cardiomegaly. Mediastinum: Unremarkable. Normal mediastinal contour. Bones/joints: Previous sternotomy. IMPRESSION: No acute findings in the chest.
[2023-06-09 02:15] LABS: Partial Thromboplastin Time 23.5 sec (22.0-30.0); Prothrombin Time 10.9 sec (10.0-12.5)
[2023-06-09 02:33] LABS: ALT 26 U/L (4-49); AST 42 U/L (17-59); African American GFR (CKD) 56 (>60 ml/min/1.73 sqM); Albumin 4.5 g/dL (3.5-5.0); Alkaline Phosphatase 34 U/L (38-126); Amylase 57 U/L (30-110); Anion Gap 12 mmol/L; Blood Urea Nitrogen 15 mg/dL (9-20); Calcium 8.9 mg/dL (8.4-10.2); Carbon Dioxide 21 mmol/L (22-30); Chloride 106 mmol/L (98-107); Glucose 91 mg/dL (74-99); Lipase 101 U/L (23-300); Magnesium 1.3 mg/dL (1.6-2.3); Non-African American GFR(CKD) 48 (>60 ml/min/1.73 sqM); Potassium 3.7 mmol/L (3.5-5.1); Sodium 139 mmol/L (137-145); Total Bilirubin 0.3 mg/dL (0.2-1.3); Total Protein 6.8 g/dL (6.3-8.2)
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
[2023-06-09 02:42] LABS: NT-Pro-B-Type Natriuretic Pept 662 pg/mL
[2023-06-09] MEDS: MORPHINE SULFATE 2 MG/ML SYRINGE IV STA (04:18)
[2023-06-09] MEDS: MAG HYDROX/AL HYDROX/SIMETH 30 ML, HYOSCYAMINE ELIXIR 10 ML, LIDOCAINE VISCOUS 2% 10 ML PO STA (04:21)
[2023-06-09 08:23] VITALS: BP 130/91; PULSE 60; RESP 16; TEMP 97.9
== END 2023-06-09 08:16 | disposition home or self-care (01) ==
LOC: EC 00:36
DX: R07.9 Chest pain, unspecified (principal); F10.10 Alcohol abuse, uncomplicated; Z95.1 Presence of aortocoronary bypass graft
CPT/HCPCS: 36415; 93005; 85379; 83880; 80053; 82150; 83690; 83735; 84484; 85025; 85610; 85730; 71046; 99285; 96374; 96376; J2270

== ENCOUNTER 2023-06-22 14:11 | Inpatient (IN) | payer OTHER ==
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
[2023-06-22 14:44] LABS: ALT 43 U/L (4-49); African American GFR (CKD) 59 (>60 ml/min/1.73 sqM); Anion Gap 14 mmol/L; Blood Urea Nitrogen 15 mg/dL (9-20); Calcium 9.5 mg/dL (8.4-10.2); Carbon Dioxide 21 mmol/L (22-30); Chloride 106 mmol/L (98-107); Glucose 119 mg/dL (74-99); Non-African American GFR(CKD) 51 (>60 ml/min/1.73 sqM); Sodium 141 mmol/L (137-145); Total Bilirubin 0.8 mg/dL (0.2-1.3)
[2023-06-22 14:50] LABS: Basophils # (A) 0.1 k/uL (0-0.2); Basophils % (A) 1 %; Eosinophils # (A) 0.1 k/uL (0-0.7); Eosinophils % (A) 1 %; HCT 44.9 % (39.0-53.0); HGB 15.4 gm/dL (13.0-17.5); Lymphocytes # (A) 1.6 k/uL (1.0-4.8); Lymphocytes % (A) 21 %; MCH 32.4 pg (25.0-35.0); MCHC 34.3 g/dL (31.0-37.0); MCV 94.6 fL (80.0-100.0); Mean Platelet Volume 7.5; Monocytes # (A) 0.3 k/uL (0-1.0); Monocytes % (A) 4 %; Neutrophils # (A) 5.4 k/uL (1.3-7.7); Neutrophils % (A) 71 %; Platelet Count 286 k/uL (150-450); RBC 4.75 m/uL (4.30-5.90); RDW 13.2 % (11.5-15.5); WBC 7.5 k/uL (3.8-10.6)
[2023-06-22 14:57] LABS: Partial Thromboplastin Time 24.2 sec (22.0-30.0); Prothrombin Time 10.6 sec (10.0-12.5)
--- NOTE | 2023-06-22 15:05 | XR ---
EXAMINATION TYPE: XR chest 2V DATE OF EXAM: 06/22/2023 COMPARISON: 06/09/2023 TECHNIQUE: PA and lateral views submitted. HISTORY: Chest pain FINDINGS: The lungs are clear and there is no pneumothorax, pleural effusion, or focal pneumonia. Heart size normal and no overt failure. Osseous structures demonstrate hypertrophic and degenerative changes of the spine. Hypertrophic AC joint arthropathy. Degenerative change of the spine. IMPRESSION: 1. No acute process.
[2023-06-22 15:20] LABS: Alcohol 391 mg/dL; Potassium 4.8 mmol/L (3.5-5.1); Total Protein 8.4 g/dL (6.3-8.2)
[2023-06-22 15:21] LABS: AST 69 U/L (17-59); Albumin 5.2 g/dL (3.5-5.0); Alkaline Phosphatase 42 U/L (38-126)
[2023-06-22 15:34] LABS: Magnesium 1.6 mg/dL (1.6-2.3)
[2023-06-22] MEDS: MORPHINE SULFATE 4 MG/ML SYRINGE IV STA (15:57)
[2023-06-22] MEDS: ASPIRIN 81 MG PO STA (15:58)
[2023-06-22] MEDS: MORPHINE SULFATE 4 MG/ML SYRINGE IM STA (15:59)
[2023-06-22] MEDS ORDERED: NITROGLYCERIN SL TABS 0.4 MG TAB SUBLINGUAL PRN (16:39)
[2023-06-22] MEDS: oxyCODONE-APAP 10-325MG 1 EACH TAB PO STA (17:05)
[2023-06-22] MEDS: oxyCODONE-APAP 10-325MG 1 EACH TAB PO PRN (23:23)
[2023-06-22] MEDS: ONDANSETRON 4 MG TAB PO PRN (23:28)
[2023-06-23] MEDS: METOPROLOL TARTRATE 25 MG TAB PO SCH (08:25)
[2023-06-23] MEDS: ASPIRIN 325 MG TAB PO SCH (08:25)
[2023-06-23 09:48] LABS: Chol/HDL Ratio 3.18 Ratio; LDL Cholesterol,Calculated 62.9 mg/dL (0.0-131.0)
[2023-06-23] MEDS ORDERED: HYDROmorphone 0.5 MG/0.5 ML SYRINGE IVP PRN (13:47)
[2023-06-23] MEDS: PANTOPRAZOLE 40 MG/10 ML VIAL IVP SCH (15:24)
[2023-06-23] MEDS: ISOSORBIDE MONONITRATE ER 30 MG TAB.ER.24H PO SCH (15:25)
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
[2023-06-23] MEDS: traZODone HCL 100 MG TAB PO PRN (20:27)
--- NOTE | 2023-06-23 23:11 | HP ---
HISTORY AND PHYSICAL I am covering for Dr. Martini. CHIEF COMPLAINT: Chest pain. HISTORY OF PRESENT ILLNESS: This is a 58-year-old gentleman with a past medical history of multiple medical problems, atrial fibrillation, COPD, hypertension, hyperlipidemia, was complaining of chest pains. The patient apparently had a history of CABG also. The patient with also history of EtOH. The pain was felt mostly on the left side. The patient is also complaining of epigastric pain. The serum alcohol was found to be 391, troponin is found to be , 0.23, and 0.012. The initial EKG shows incomplete right bundle- branch block and nonspecific ST-T changes. There is no history of any cardiology evaluation. There is no history of any fever, rigors, or chills. PAST MEDICAL HISTORY: Reviewed include atrial fibrillation, COPD, CAD, CABG, rest of the history and chart is also reviewed. HOME MEDICATIONS: Reviewed include Plavix, doses and rest of medications reviewed. ALLERGIES: None. FAMILY HISTORY: History of CAD in the family. SOCIAL HISTORY: Occasional alcohol. REVIEW OF SYSTEMS: A 14-point review is negative except as mentioned. PHYSICAL EXAMINATION: VITAL SIGNS: Pulse is 75, blood pressure 109/76, respirations 16. HEENT: Conjunctivae normal. NECK: No jugular venous distention. RESPIRATIONS: Diminished at the bases. No rhonchi, no crackles. ABDOMEN: Soft, minimal diffuse tenderness in the epigastrium, obese. LEGS: No edema, no swelling. NERVOUS SYSTEM: Nonfocal. SKIN: No ulcer, rash, bleeding. JOINTS: No active deforming arthropathy. LABORATORY DATA: Reviewed. ASSESSMENT: 1. Chest pain, possible unstable angina. 2. Epigastric pain, possible acute gastritis. 3. History of EtOH, alcohol level 391. 4. History of CAD, CABG. 5. Possible mild acute renal failure. 6. Atrial fibrillation history. 7. Chronic obstructive pulmonary disease. 8. Hypertension. 9. Multiple medical issues. RECOMMENDATIONS AND DISCUSSION: This 58-year-old gentleman presented with multiple complex medical issues. We will monitor the patient closely. I would recommend to closely follow. Rule out myocardial infarction, unstable angina protocol. Cardiology consultation. Resume the home medications. I would also treat the patient empirically for gastritis. Also recommend alcohol withdrawal protocol with Ativan. Overall prognosis extremely guarded because of multiple complex medical issues. Further recommendations to follow. See orders for details. Pain management, Dr. Martini will follow the patient on Sunday. The patient will need full admit for more than 2 midnights because of above-mentioned multiple complex medical issues which cannot be resolved within 23 hours. MMODL / IJN: [id number] / MTDD
[2023-06-24] MEDS: CLOPIDOGREL 75 MG TAB PO SCH (08:26)
[2023-06-24] MEDS: cloNIDine HCL 0.1 MG TAB PO SCH (08:26)
[2023-06-24] MEDS: lisinopriL 10 MG TAB PO SCH (08:26)
[2023-06-24] MEDS: CHLORTHALIDONE 25 MG TAB PO SCH (09:09)
[2023-06-24] MEDS: NON FORMULARY DRUG (Rosuvastatin Calcium [Rosuvastatin Calcium] 5 MG Tablet) PO SCH (09:11)
[2023-06-24 11:01] LABS: Basophils # (A) 0.04 X 10*3/uL (0.00-0.10); Basophils % (A) 0.5 %; Eosinophils # (A) 0.11 X 10*3/uL (0.04-0.35); Eosinophils % (A) 1.4 %; HCT 35.4 % (39.6-50.0); HGB 11.9 g/dL (13.0-17.0); Lymphocytes # (A) 1.99 X 10*3/uL (0.90-5.00); Lymphocytes % (A) 25.5 %; MCH 32.5 pg (27.0-32.0); MCHC 33.6 g/dL (32.0-37.0); MCV 96.7 FL (80.0-97.0); Mean Platelet Volume 10.2 FL (9.5-12.2); Monocytes # (A) 0.63 X 10*3/uL (0.20-1.00); Monocytes % (A) 8.1 %; NRBC Per 100 WBC 0 X 10*3/uL (0.00-0.01); Neutrophils % (A) 64.2 %; Platelet Count 235 X 10*3/uL (140-440); RBC 3.66 X 10*6/uL (4.40-5.60); RDW 12.5 % (11.5-14.5); WBC 7.79 X 10*3/uL (4.50-10.00)
[2023-06-24 11:25] LABS: BUN/Creat Ratio 15.31 Ratio (12.00-20.00); Blood Urea Nitrogen 24.5 mg/dL (9.0-27.0); Carbon Dioxide 25.9 mmol/L (21.6-31.8); Chloride 100 mmol/L (96-109); Glucose 106 mg/dL (70-110); Sodium 137 mmol/L (135-145)
--- NOTE | 2023-06-24 11:26 | P.PN ---
Subjective Progress Note Date: 06/24/23 History of present illness: Patient is a pleasant 58-year-old male with significant past medical history of CAD status post CABG 2021, hypertension, hyperlipidemia, EtOH abuse, saccular aneurysm right common iliac artery who presented to the emergency department with complaints of chest pain. He does see Dr. Fried in the office and saw him approximately 2-3 weeks ago and his amiodarone was stopped at that time. He reports that he was just sitting at home when his chest pain began and was radiating down to both elbows. He did feel short of breath and nauseous. He was having a few drinks of alcohol. Denies any diaphoresis. The pain lasted for about an hour and then he decided to come into the ER because it felt like it did with his prior surgery. He also reports this felt similar to when he was admitted in February of this year. He did have a dobutamine stress echo 02/21/2023 that was unremarkable. Prior echo from 09/28/2022 with EF 55-60%. The pain lasted for a couple hours and improved with his Percocet and morphine in the ER. Labs reviewed: Troponin negative x 3, EtOH was elevated 391, creatinine 1.5, potassium 4.8, hemoglobin 15.4, AST 69, cholesterol 163, LDL 62, HDL 51, triglycerides 244. 06/24/23 He reports that he was still having some intermittent episodes of chest pain and abdominal pain overnight. He also had some heart pounding episodes this morning. No A-fib noted on telemetry. Creatinine was 1.5 on admission, will recheck BMP and hold chlorthalidone for now. PHYSICAL EXAMINATION: This is a 58-year-old male in no apparent distress at the time of my examination. HEENT: Head is atraumatic, normocephalic. Pupils are equal, round. Sclerae anicteric. Conjunctivae are clear. Mucous membranes of the mouth are moist. Neck is supple. There is no jugular venous distention. No carotid bruit is heard. CHEST EXAMINATION: Lungs are clear to auscultation. No chest wall tenderness is noted on palpation or with deep breathing. HEART EXAMINATION: Heart regular rate and rhythm. S1, S2 heard. No murmurs, gallops or rub. ABDOMEN: Soft, nontender. Bowel sounds are heard. EXTREMITIES: 2+ peripheral pulses with no evidence of peripheral edema and no calf tenderness noted. NEUROLOGIC EXAMINATION: Patient is awake, alert and oriented x3. IMPRESSION AND PLAN: CAD status post CABG April 2021 Hypertension Hyperlipidemia EtOH abuse Abdominal pain Chest pain Palpitations PLAN: Acute coronary syndrome ruled out. Recommend trying medical management with addition of Imdur and monitor response. He is still having intermittent chest pain. We discussed repeating a different type of stress test versus left heart catheterization versus monitoring symptoms with outpatient follow-up. Patient would like to proceed with left heart catheterization for definitive answer. Will monitor kidney function, hold chlorthalidone for now. N.p.o. after midnight for possible heart catheterization with Dr. Fried tomorrow. I am dictating on behalf of Dr. Kameron Forde's history/physical and assessment/plan. Objective - Vital Signs Vital signs: Vital Signs Temp 98.4 F 06/24/23 07:00 Pulse 69 06/24/23 07:00 Resp 16 06/24/23 07:00 BP 136/88 06/24/23 07:00 Pulse Ox 97 06/24/23 07:41 FiO2 Intake & Output 06/23/23 06/24/23 06/24/23 18:59 06:59 18:59 Intake Total 240 Balance 240 Intake: Oral 240 Other: # Voids 3 2 - Labs CBC & Chem 7: 06/24/23 05:04 06/22/23 14:26 Labs: Abnormal Lab Results - Last 24 Hours (Table) 06/24/23 Range/Units 05:04 RBC 3.66 L (4.40-5.60) X 10*6/uL Hgb 11.9 L (13.0-17.0) g/dL Hct 35.4 L (39.6-50.0) % MCH 32.5 H (27.0-32.0) pg
[2023-06-24] MEDS: SODIUM CHLORIDE 0.9% 1,000 ML IV SCH (11:33)
[2023-06-24] MEDS: AMIODARONE 200 MG TAB PO SCH (11:34)
[2023-06-24] MEDS: oxyCODONE-APAP 10-325MG 1 EACH TAB PO PRN (12:57)
--- NOTE | 2023-06-25 01:08 | PN ---
PROGRESS NOTE DATE OF SERVICE: 06/24/2023 I am covering for Dr. Martini. SUBJECTIVE: This is a 58-year-old gentleman admitted with multiple medical problems including chest pain, is scheduled for cardiac catheterization by Cardiology. No chest pain. No palpitations. No fever. OBJECTIVE: VITAL SIGNS: Pulse 69, blood pressure 136/80, respirations 16. CHEST: Clear to auscultation. CARDIOVASCULAR: S1, S2. ABDOMEN: Soft. NERVOUS SYSTEM: Nonfocal. LABORATORY DATA: Reviewed. Alcohol is 391. ASSESSMENT: 1. Chest pain, possible unstable angina for cardiac cath. 2. Epigastric pain, possible acute gastritis. 3. History of EtOH. Alcohol level 391. 4. Coronary artery disease, coronary artery bypass graft history. 5. Possible mild acute renal failure. 6. Atrial fibrillation history. 7. Chronic obstructive pulmonary disease. 8. Hypertension. 9. Multiple medical issues. RECOMMENDATIONS: Recommend to continue current management. Continue symptomatic treatment. Repeat labs. Closely follow with Cardiology for possible cardiac cath. Otherwise, Dr. Martini will follow tomorrow. MMODL / IJN: [id number] /
[2023-06-25] MEDS ORDERED: HEPARIN SODIUM,PORCINE 10,000 UNIT in SODIUM CHLORIDE 0.9% 1,000 ML IRRIGATION PRN (07:00)
[2023-06-25] MEDS ORDERED: HEPARIN SODIUM,PORCINE (1 ML) 2,500 UNIT in SODIUM CHLORIDE 0.9% 250 ML IRRIGATION PRN (07:00)
[2023-06-25] MEDS ORDERED: ALPRAZolam 0.25 MG TAB PO PRN (07:39)
[2023-06-25] MEDS ORDERED: NITROGLYCERIN SL TABS 0.4 MG TAB SUBLINGUAL PRN (07:39)
[2023-06-25] MEDS ORDERED: ALPRAZolam 0.5 MG TAB PO PRN (07:39)
[2023-06-25] MEDS: ASPIRIN 325 MG TAB PO STA (08:23)
[2023-06-25] MEDS: ATORVASTATIN 80 MG TAB PO STA (08:23)
--- NOTE | 2023-06-25 10:33 | P.PN ---
Subjective Progress Note Date: 06/25/23 History of present illness: Patient is a pleasant 58-year-old male with significant past medical history of CAD status post CABG 2021, hypertension, hyperlipidemia, EtOH abuse, saccular aneurysm right common iliac artery who presented to the emergency department with complaints of chest pain. He does see Dr. Fried in the office and saw him approximately 2-3 weeks ago and his amiodarone was stopped at that time. He reports that he was just sitting at home when his chest pain began and was radiating down to both elbows. He did feel short of breath and nauseous. He was having a few drinks of alcohol. Denies any diaphoresis. The pain lasted for about an hour and then he decided to come into the ER because it felt like it did with his prior surgery. He also reports this felt similar to when he was admitted in February of this year. He did have a dobutamine stress echo 02/21/2023 that was unremarkable. Prior echo from 09/28/2022 with EF 55-60%. The pain lasted for a couple hours and improved with his Percocet and morphine in the ER. Labs reviewed: Troponin negative x 3, EtOH was elevated 391, creatinine 1.5, potassium 4.8, hemoglobin 15.4, AST 69, cholesterol 163, LDL 62, HDL 51, triglycerides 244. 06/24/23 He reports that he was still having some intermittent episodes of chest pain and abdominal pain overnight. He also had some heart pounding episodes this morning. No A-fib noted on telemetry. Creatinine was 1.5 on admission, will recheck BMP and hold chlorthalidone for now. 06/24 Patient states that he had a little bit of chest pain last evening and it has been on and off since before February. He states the pain is similar to that that he had with his previous coronary artery disease and CABG. Chest pain worsens with exercise. Telemetry is a sinus rhythm. Blood pressure 111/74, heart rate 59, pulse ox 96% on room air. Patient was started on Imdur 30 mg daily yesterday. PHYSICAL EXAMINATION: This is a 58-year-old male in no apparent distress at the time of my examination. HEENT: Head is atraumatic, normocephalic. Pupils are equal, round. Sclerae anicteric. Conjunctivae are clear. Mucous membranes of the mouth are moist. Neck is supple. There is no jugular venous distention. No carotid bruit is heard. CHEST EXAMINATION: Lungs are clear to auscultation. No chest wall tenderness is noted on palpation or with deep breathing. HEART EXAMINATION: Heart regular rate and rhythm. S1, S2 heard. No murmurs, gallops or rub. ABDOMEN: Soft, nontender. Bowel sounds are heard. EXTREMITIES: 2+ peripheral pulses with no evidence of peripheral edema and no calf tenderness noted. NEUROLOGIC EXAMINATION: Patient is awake, alert and oriented x3. IMPRESSION AND PLAN: CAD status post CABG April 2021 Hypertension Hyperlipidemia EtOH abuse Abdominal pain Chest pain Palpitations PLAN: Acute coronary syndrome ruled out. Patient will be scheduled for continue current cardiac medications Continue n.p.o. status Will monitor kidney function, hold chlorthalidone for now. Patient progresses. Nurse practitioner note has been reviewed, I agree with documented findings and plan of care. Patient was seen and examined. Objective - Vital Signs Vital signs: Vital Signs Temp 98.8 F 06/25/23 01:14 Pulse 65 06/25/23 01:14 Resp 15 06/25/23 01:14 BP 113/73 06/25/23 01:14 Pulse Ox 97 06/25/23 01:14 FiO2 Intake & Output 06/24/23 06/25/23 06/25/23 18:59 06:59 18:59 Intake Total 360 Balance 360 Intake: Oral 360 Other: # Voids 3 2 - Labs CBC & Chem 7: 06/24/23 05:04 06/24/23 05:04 Labs: Abnormal Lab Results - Last 24 Hours (Table) 06/24/23 06/24/23 Range/Units 05:04 05:04 RBC 3.66 L (4.40-5.60) X 10*6/uL Hgb 11.9 L (13.0-17.0) g/dL Hct 35.4 L (39.6-50.0) % MCH 32.5 H (27.0-32.0) pg Creatinine 1.6 H (0.6-1.5) mg/dL Est GFR (CKD-EPI) 50 L (>=60)
[2023-06-25 10:56] LABS: ALT 18 U/L (10-49); AST 22 U/L (14-35); Albumin 3.9 g/dL (3.8-4.9); Albumin/Globulin Ratio 2.29 Ratio (1.60-3.17); Alkaline Phosphatase 37 U/L (41-126); BUN/Creat Ratio 12.06 Ratio (12.00-20.00); Blood Urea Nitrogen 20.5 mg/dL (9.0-27.0); Calcium 8.7 mg/dL (8.7-10.3); Chloride 102 mmol/L (96-109); Globulin 1.7 g/dL (1.6-3.3); Glucose 104 mg/dL (70-110); Potassium 4.4 mmol/L (3.5-5.5); Sodium 138 mmol/L (135-145); Total Bilirubin 0.4 mg/dL (0.3-1.2); Total Protein 5.6 g/dL (6.2-8.2)
[2023-06-25] MEDS ORDERED: VERAPAMIL 2.5 MG/ML 2 ML AMP ONE (11:15)
[2023-06-25] MEDS ORDERED: LIDOCAINE 1% INJ 10MG/ML (20 ML MDV) ONE (11:15)
[2023-06-25] MEDS ORDERED: HEPARIN SODIUM 1,000 UN/ML (10ML VL) ONE (11:31)
[2023-06-25] MEDS: MIDAZOLAM 2 MG/2 ML VIAL IVP ONE (11:50)
[2023-06-25] MEDS ORDERED: fentaNYL (PF) 50 MCG/ML 2 ML AMP ONE (11:53)
[2023-06-25] MEDS: LIDOCAINE 1% INJ 10MG/ML (20 ML MDV) SQ ONE (11:53)
[2023-06-25] MEDS: fentaNYL (PF) 50 MCG/ML 2 ML AMP IVP ONE (11:55)
[2023-06-25] MEDS: HYDROmorphone 0.5 MG/0.5 ML SYRINGE IVP ONE ×2 (12:02→12:40)
[2023-06-25 12:11] LABS: Basophils # (A) 0.16 X 10*3/uL (0.00-0.10); Eosinophils # (A) 0.21 X 10*3/uL (0.04-0.35); Eosinophils % (A) 2.7 %; HCT 32.7 % (39.6-50.0); HGB 10.9 g/dL (13.0-17.0); Lymphocytes # (A) 1.89 X 10*3/uL (0.90-5.00); Lymphocytes % (A) 24.2 %; MCHC 33.3 g/dL (32.0-37.0); MCV 99.1 FL (80.0-97.0); Mean Platelet Volume 10.2 FL (9.5-12.2); Monocytes # (A) 0.68 X 10*3/uL (0.20-1.00); Monocytes % (A) 8.7 %; NRBC Per 100 WBC 0 X 10*3/uL (0.00-0.01); Neutrophils # (A) 4.84 X 10*3/uL (1.80-7.70); Neutrophils % (A) 61.9 %; Platelet Count 192 X 10*3/uL (140-440); RBC Morphology Normal (Normal); RDW 12.6 % (11.5-14.5); WBC 7.82 X 10*3/uL (4.50-10.00)
[2023-06-25] MEDS ORDERED: RX INFO: IV CONTRAST WAS GIVEN 1 EACH MISC MISCELLANE PRN (12:48)
[2023-06-25] MEDS: SODIUM CHLORIDE 0.9% 1,000 ML IV ONE (12:49)
--- NOTE | 2023-06-25 12:55 | P.PCN ---
Date of Procedure: 06/25/23 Operative Findings: CARDIAC CATHETERIZATION PERFORMING PHYSICIAN: Sal Savage MD, RPVI PROCEDURE PERFORMED: 1. Selective right and left coronary angiogram 2. Left heart catheterization 3. AZUL to LAD and diagonal angiogram and radial artery to OM angiogram and SVG to PDA angiogram and IFR of the SVG to PDA 4. Ultrasound-guided access of the right common femoral artery and selective right common femoral artery angiogram INDICATION: Unstable angina COMPLICATION: None APPROACH: Right common femoral artery LEVEL OF SEDATION: Moderate with sedation in length of 43 minutes PROCEDURE DESCRIPTION: After obtaining an informed consent, the patient was brought to cardiac mason tender restoration labor. Local anesthesia was performed using lidocaine subcutaneously. The right common femoral artery was cannulated using micropuncture technique under ultrasound guidance, the guidewire passed easily, following that we advanced a 6 Ethiopian sheath dilator assembly, the wire and dilator were removed and sheath was flushed. Selective right and left coronary angiogram using a 6-Ethiopian JR4 and JL catheters. The AZUL to LAD and diagonal angiogram and radial artery to OM angiogram and SVG to RCA angiogram was performed using JR4 catheter. Following that we did left heart catheterization using 6-Ethiopian pigtail catheter. The procedure was completed there was no complication. SELECTIVE CORONARY ANGIOGRAM: The right coronary artery: Large caliber vessel and a dominant vessel with a long diffuse disease up to about 99.9%. The RCA gives the PLV branch. The PDA branch appeared to be subtotally occluded. Left main: Has mild to moderate disease The left circumflex: Large caliber vessel with ostial and proximal disease appears to be in the range of 50%. The left anterior descending artery: Is subtotally occluded in the proximal to midportion Coronary bypasses angiogram The AZUL to LAD and diagonal angiogram is patent. The radial artery bypass comes from the AZUL to OM appears to be patent The SVG to PDA has intermediate lesion in the proximal portion documented to be nonflow limiting by Doppler wire HEMODYNAMICS: LVEDP was about 24 mmHg with no significant gradient across aortic valve CONCLUSION: 1. Severe triple-vessel coronary artery disease 2. Patent AZUL to LAD and diagonal. Patent radial artery bypass comes from the AZUL to OM. Intermediate disease involving the SVG to PDA of RCA and the disease is not flow-limiting by Doppler wire 3. Elevated left-sided filling pressure POSTPROCEDURE MANAGEMENT: Medical treatment
[2023-06-25] MEDS: SODIUM CHLORIDE 0.9% 1,000 ML IV SCH (13:27)
[2023-06-25 22:02] VITALS: RESP 15
[2023-06-26 08:23] VITALS: BP 122/78; PULSE 84; TEMP 97.8
[2023-06-26] MEDS: ASPIRIN 325 MG TAB PO SCH (09:30)
--- NOTE | 2023-06-26 10:26 | P.PN ---
Subjective Progress Note Date: 06/26/23 History of present illness: Patient is a pleasant 58-year-old male with significant past medical history of CAD status post CABG 2021, hypertension, hyperlipidemia, EtOH abuse, saccular aneurysm right common iliac artery who presented to the emergency department with complaints of chest pain. He does see Dr. Fried in the office and saw him approximately 2-3 weeks ago and his amiodarone was stopped at that time. He reports that he was just sitting at home when his chest pain began and was radiating down to both elbows. He did feel short of breath and nauseous. He was having a few drinks of alcohol. Denies any diaphoresis. The pain lasted for about an hour and then he decided to come into the ER because it felt like it did with his prior surgery. He also reports this felt similar to when he was admitted in February of this year. He did have a dobutamine stress echo 02/21/2023 that was unremarkable. Prior echo from 09/28/2022 with EF 55-60%. The pain lasted for a couple hours and improved with his Percocet and morphine in the ER. Labs reviewed: Troponin negative x 3, EtOH was elevated 391, creatinine 1.5, potassium 4.8, hemoglobin 15.4, AST 69, cholesterol 163, LDL 62, HDL 51, triglycerides 244. 06/24/23 He reports that he was still having some intermittent episodes of chest pain and abdominal pain overnight. He also had some heart pounding episodes this morning. No A-fib noted on telemetry. Creatinine was 1.5 on admission, will recheck BMP and hold chlorthalidone for now. 06/24 Patient states that he had a little bit of chest pain last evening and it has been on and off since before February. He states the pain is similar to that that he had with his previous coronary artery disease and CABG. Chest pain worsens with exercise. Telemetry is a sinus rhythm. Blood pressure 111/74, heart rate 59, pulse ox 96% on room air. Patient was started on Imdur 30 mg daily yesterday. 06/25 Yesterday, patient underwent cardiac catheterization with Dr. Savage which revealed severe triple-vessel coronary artery disease. Patent AZUL to LAD and diagonal. Patent radial artery bypass comes from the AZUL to OM. Intermediate disease involving the SVG to PDA of RCA in the disease is not flow-limiting by Doppler wire. Recommendations for medical management. Patient states he still has some chest pain and more low back pain. Pain is not as bad as it was yesterday. Groin site PHYSICAL EXAMINATION: This is a 58-year-old male in no apparent distress at the time of my examination. HEENT: Head is atraumatic, normocephalic. Pupils are equal, round. Sclerae anicteric. Conjunctivae are clear. Mucous membranes of the mouth are moist. Neck is supple. There is no jugular venous distention. No carotid bruit is heard. CHEST EXAMINATION: Lungs are clear to auscultation. No chest wall tenderness is noted on palpation or with deep breathing. HEART EXAMINATION: Heart regular rate and rhythm. S1, S2 heard. No murmurs, gallops or rub. ABDOMEN: Soft, nontender. Bowel sounds are heard. EXTREMITIES: 2+ peripheral pulses with no evidence of peripheral edema and no calf tenderness noted. NEUROLOGIC EXAMINATION: Patient is awake, alert and oriented x3. IMPRESSION AND PLAN: CAD status post CABG April 2021 Hypertension Hyperlipidemia EtOH abuse Abdominal pain Chest pain Palpitations PLAN: Acute coronary syndrome ruled out. Continue current cardiac medications Patient is cleared for discharge and may follow up in the office with Dr. Savage in one week. Nurse practitioner note has been reviewed, I agree with documented findings and plan of care. Patient was seen and examined. Objective - Vital Signs Vital signs: Vital Signs Temp 98.2 F 06/26/23 00:37 Pulse 68 06/26/23 00:37 Resp 15 06/26/23 00:37 BP 124/71 06/26/23 00:37 Pulse Ox 97 06/26/23 00:37 FiO2 Intake & Output 06/25/23 06/26/23 06/26/23 18:59 06:59 18:59 Intake Total 628 Output Total 575 Balance 53 Intake: IV 150 Oral 478 Output: Urine 575 Other: # Voids 3 - Labs CBC & Chem 7: 06/25/23 06:19 06/25/23 06:19 Labs: Abnormal Lab Results - Last 24 Hours (Table) 06/25/23 06/25/23 Range/Units 06:19 06:19 RBC 3.30 L (4.40-5.60) X 10*6/uL Hgb 10.9 L (13.0-17.0) g/dL Hct 32.7 L (39.6-50.0) % MCV 99.1 H (80.0-97.0) FL MCH 33.0 H (27.0-32.0) pg Basophils # 0.16 H (0.00-0.10) X 10*3/uL Creatinine 1.7 H (0.6-1.5) mg/dL Est GFR (CKD-EPI) 47 L (>=60) Alkaline Phosphatase 37 L (41-126) U/L Total Protein 5.6 L (6.2-8.2) g/dL
== END 2023-06-26 14:43 | disposition home or self-care (01) | DRG 191 ==
LOC: EC 14:11 → 6NMEDSUR 16:40 → OBSVTOIN 16:40 → 6NMEDSUR 18:17
PROVIDERS: ADMIT Family Medicine; ATTEND Family Medicine
PROC: B2131ZZ Fluoroscopy of Multiple Coronary Artery Bypass Grafts using Low Osmolar Contrast (ICD-10-PCS; principal; 2023-06-22)
PROC: B2181ZZ Fluoroscopy of Left Internal Mammary Bypass Graft using Low Osmolar Contrast (ICD-10-PCS; principal; 2023-06-22)
PROC: 4A023N7 Measurement of Cardiac Sampling and Pressure, Left Heart, Percutaneous Approach (ICD-10-PCS; principal; 2023-06-22)
PROC: B2111ZZ Fluoroscopy of Multiple Coronary Arteries using Low Osmolar Contrast (ICD-10-PCS; principal; 2023-06-22)
DX: I25.110 Atherosclerotic heart disease of native coronary artery with unstable angina pectoris (principal); I25.710 Atherosclerosis of autologous vein coronary artery bypass graft(s) with unstable angina pectoris; Z95.1 Presence of aortocoronary bypass graft; E78.5 Hyperlipidemia, unspecified; I72.3 Aneurysm of iliac artery; I63.9 Cerebral infarction, unspecified; J44.9 Chronic obstructive pulmonary disease, unspecified; I10 Essential (primary) hypertension; F10.10 Alcohol abuse, uncomplicated; Y90.8 Blood alcohol level of 240 mg/100 ml or more; I45.10 Unspecified right bundle-branch block; Z60.2 Problems related to living alone; N17.9 Acute kidney failure, unspecified; K29.70 Gastritis, unspecified, without bleeding; F41.9 Anxiety disorder, unspecified; F32.A Depression, unspecified; Z79.82 Long term (current) use of aspirin; Z79.899 Other long term (current) drug therapy; Z79.02 Long term (current) use of antithrombotics/antiplatelets
CPT/HCPCS: 36415; 71046; 76937; 80048; 80053; 80061; 80320; 83735; 84484; 85025; 85610; 85730; 93005; 93459; 93799; 94760; 96372; 96374; 99285

== ENCOUNTER 2023-07-14 23:15 | Emergency (ER) | payer OTHER ==
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
[2023-07-14 23:59] VITALS: RESP 18; TEMP 98.3
[2023-07-15] MEDS: PANTOPRAZOLE 40 MG/10 ML VIAL IVP STA (00:01)
[2023-07-15] MEDS: MORPHINE SULFATE 2 MG/ML SYRINGE IVP STA (00:06)
[2023-07-15] MEDS: oxyCODONE-APAP 10-325MG 1 EACH TAB PO ONE (00:21)
[2023-07-15 00:30] LABS: Basophils # (A) 0.1 k/uL (0-0.2); Basophils % (A) 1 %; Eosinophils # (A) 0.1 k/uL (0-0.7); Eosinophils % (A) 1 %; HCT 38.6 % (39.0-53.0); HGB 12.9 gm/dL (13.0-17.5); Lymphocytes # (A) 1.9 k/uL (1.0-4.8); Lymphocytes % (A) 31 %; MCH 31.5 pg (25.0-35.0); MCHC 33.5 g/dL (31.0-37.0); Mean Platelet Volume 7.7; Monocytes # (A) 0.3 k/uL (0-1.0); Monocytes % (A) 5 %; Neutrophils # (A) 3.8 k/uL (1.3-7.7); Neutrophils % (A) 59 %; Platelet Count 254 k/uL (150-450); RBC 4.11 m/uL (4.30-5.90); RDW 12.9 % (11.5-15.5); WBC 6.3 k/uL (3.8-10.6)
[2023-07-15 00:45] LABS: Partial Thromboplastin Time 24.4 sec (22.0-30.0)
[2023-07-15 00:50] LABS: ALT 25 U/L (4-49); AST 43 U/L (17-59); African American GFR (CKD) 77 (>60 ml/min/1.73 sqM); Albumin 4.8 g/dL (3.5-5.0); Alkaline Phosphatase 38 U/L (38-126); Anion Gap 14 mmol/L; Blood Urea Nitrogen 10 mg/dL (9-20); Calcium 9.7 mg/dL (8.4-10.2); Carbon Dioxide 18 mmol/L (22-30); Chloride 103 mmol/L (98-107); Glucose 104 mg/dL (74-99); Lipase 213 U/L (23-300); Magnesium 1.5 mg/dL (1.6-2.3); Non-African American GFR(CKD) 66 (>60 ml/min/1.73 sqM); Potassium 3.5 mmol/L (3.5-5.1); Sodium 135 mmol/L (137-145); Total Bilirubin 0.6 mg/dL (0.2-1.3); Total Protein 7.3 g/dL (6.3-8.2)
[2023-07-15 00:58] LABS: Alcohol 238 mg/dL
[2023-07-15] MEDS: MAGNESIUM SULFATE-D5W PMX 1 GM in DEXTROSE/WATER 1 100ML.BAG IVPB ONE (01:22)
--- NOTE | 2023-07-15 02:20 | XR ---
EXAM: XR Chest, 2 Views CLINICAL HISTORY: ITS.REASON XR Reason: Chest Pain TECHNIQUE: Frontal and lateral views of the chest. COMPARISON: April 27, 2023 and June 22, 2023. FINDINGS: Lungs: Unremarkable. No consolidation. Pleural space: Unremarkable. No pneumothorax. Heart: Unremarkable. No cardiomegaly. Mediastinum: Unremarkable. Normal mediastinal contour. Bones/joints: Sternotomy wires. No acute fracture. Soft tissues: LEFT appendage clip. IMPRESSION: No acute findings in the chest.
[2023-07-15 04:31] VITALS: BP 168/89; PULSE 58
== END 2023-07-15 03:46 | disposition home or self-care (01) ==
LOC: EC 23:15
DX: R07.9 Chest pain, unspecified (principal); R10.13 Epigastric pain; F10.129 Alcohol abuse with intoxication, unspecified; I25.10 Atherosclerotic heart disease of native coronary artery without angina pectoris; R00.1 Bradycardia, unspecified; F17.200 Nicotine dependence, unspecified, uncomplicated; Y90.7 Blood alcohol level of 200-239 mg/100 ml
CPT/HCPCS: 36415; 93005; 80053; 83690; 83735; 84484; 85025; 85610; 85730; 71046; 99285; 96365; 96375; G0480; J3475; C9113; 80320

== ENCOUNTER → 2023-07-16 | Outpatient (CLI) | payer OTHER ==
--- NOTE | 2023-07-16 20:27 | US ---
EXAMINATION TYPE: US abdomen complete DATE OF EXAM: 07/16/2023 COMPARISON: CT 02/20/2023, US 2021 CLINICAL INDICATION: Male, 58 years old with history of R10.84 GENERALIZED ABDOMINAL PAIN; Hx appende ctomy. Pain x a couple months. Hx right common iliac artery aneurysm seen on CT. TECHNIQUE: Multiple sonographic images of the abdomen are obtained. FINDINGS: EXAM MEASUREMENTS: Liver Length: 15.8 cm Gallbladder Wall: 0.14 cm CBD: 0.25 cm Spleen: 9.7 cm Right Kidney: 10.7 x 5.7 x 6.3 cm Left Kidney: 11.5 x 5.3 x 5.8 cm PROGRAM EVALUATION CONSULTANT NOTES: Exam is limited due to gas and patient body habitus. Pancreas: Not well seen. Liver: Appears coarse in echotexture with increased echogenicity. Gallbladder: *Hyperechoic area seen that appears to be attached to the gallbladder wall: 0.3 x 0.2 x 0.2 cm. Evidence for sonographic Cazares's sign: No CBD: Appears wnl Spleen: Slightly limited. Right Kidney: Lobulated contour. -Complex area seen lower pole: 2.5 x 2.7 x 2.1 cm. Left Kidney: -Hypoechoic, indistinct area seen upper pole: 1.7 x 1.3 x 1.1 cm. Upper IVC: Appears wnl Abd Aorta: Proximal segment appears aneurysmal measuring 3.1 x 3.5 cm. Mid and distal segments appea r ectatic. Iliac arteries were obscured Pancreas is poorly visualized due to overlying bowel gas. Liver demonstrates coarsened echotexture wi th increased echogenicity. This appearance limits evaluation for small intrahepatic masses. No gross evidence of mass. Echogenic 0.3 cm focus within the underdistended gallbladder wall which may represe nt a polyp. No gallbladder wall thickening or surrounding fluid. Negative sonographic Cazares sign. Th e common bile duct is within normal limits. Bilateral hypoechoic renal lesions corresponding to renal cysts. No hydronephrosis or nephrolithiasis. The visualized upper IVC appears within normal limits. The spleen is within normal limits. Aneurysmal appearance of the proximal abdominal aorta however thi s appears within normal limits on prior CT earlier this year. This appearance is likely based on ultr asound technique. IMPRESSION: 1. No ultrasound evidence for an acute process. 2. Hepatic steatosis. 3. Possible 0.3 cm gallbladder polyp. 4. Bilateral renal cysts.
== END | disposition home or self-care (01) ==
LOC: RADUSWWP 09:31
PROVIDERS: ATTEND Family Medicine
DX: K76.0 Fatty (change of) liver, not elsewhere classified (principal); N28.1 Cyst of kidney, acquired; I72.3 Aneurysm of iliac artery; Z90.49 Acquired absence of other specified parts of digestive tract
CPT/HCPCS: 76700

== ENCOUNTER 2023-07-17 03:28 | Inpatient (IN) | payer MEDICAID, OTHER ==
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
[2023-07-17 04:19] LABS: Basophils # (A) 0.1 k/uL (0-0.2); Basophils % (A) 1 %; Eosinophils # (A) 0.1 k/uL (0-0.7); Eosinophils % (A) 2 %; HCT 39.4 % (39.0-53.0); HGB 13.5 gm/dL (13.0-17.5); Lymphocytes # (A) 2.3 k/uL (1.0-4.8); Lymphocytes % (A) 32 %; MCH 31.8 pg (25.0-35.0); MCHC 34.4 g/dL (31.0-37.0); MCV 92.6 fL (80.0-100.0); Mean Platelet Volume 7.2; Monocytes # (A) 0.5 k/uL (0-1.0); Monocytes % (A) 7 %; Neutrophils # (A) 4.3 k/uL (1.3-7.7); Neutrophils % (A) 57 %; Platelet Count 265 k/uL (150-450); RBC 4.25 m/uL (4.30-5.90); WBC 7.4 k/uL (3.8-10.6)
[2023-07-17 04:34] LABS: Partial Thromboplastin Time 23.7 sec (22.0-30.0); Prothrombin Time 10.9 sec (10.0-12.5)
[2023-07-17 04:36] LABS: ALT 27 U/L (4-49); AST 46 U/L (17-59); African American GFR (CKD) 59 (>60 ml/min/1.73 sqM); Albumin 5.1 g/dL (3.5-5.0); Alkaline Phosphatase 39 U/L (38-126); Anion Gap 14 mmol/L; Blood Urea Nitrogen 12 mg/dL (9-20); Calcium 9.3 mg/dL (8.4-10.2); Carbon Dioxide 20 mmol/L (22-30); Chloride 101 mmol/L (98-107); Glucose 113 mg/dL (74-99); Lipase 162 U/L (23-300); Magnesium 1.5 mg/dL (1.6-2.3); Non-African American GFR(CKD) 51 (>60 ml/min/1.73 sqM); Sodium 135 mmol/L (137-145); Total Bilirubin 0.7 mg/dL (0.2-1.3); Total Protein 7.6 g/dL (6.3-8.2)
[2023-07-17 04:37] LABS: Alcohol 280 mg/dL
[2023-07-17] MEDS: oxyCODONE-APAP 10-325MG 1 EACH TAB PO PRN (05:00)
[2023-07-17 05:01] LABS: Potassium 3.5 mmol/L (3.5-5.1)
[2023-07-17] MEDS: LORazepam 1 MG TAB PO STA ×2 (10:44→15:33)
[2023-07-17] MEDS ORDERED: LORazepam 2 MG/ML INJ IM PRN (18:46)
[2023-07-17] MEDS ORDERED: IBUPROFEN 600 MG TAB PO PRN (18:46)
[2023-07-17] MEDS ORDERED: haloperidoL 5 MG TAB PO PRN (18:46)
[2023-07-17] MEDS ORDERED: HALOPERIDOL LACTATE 5 MG/ML 1 ML VIAL IM PRN (18:46)
[2023-07-17] MEDS ORDERED: MAG HYDROX/AL HYDROX/SIMETH 355 ML BOTTLE PO PRN (18:46)
[2023-07-17] MEDS ORDERED: MAGNESIUM HYDROXIDE 2,400 MG/30 ML CUP PO PRN (18:46)
[2023-07-17] MEDS ORDERED: LORazepam 1 MG TAB PO PRN ×2 (18:46)
[2023-07-17] MEDS ORDERED: ACETAMINOPHEN TAB 325 MG TAB PO PRN (18:46)
[2023-07-18] MEDS: chlordiazePOXIDE 25 MG CAP PO SCH ×2 (00:03→17:09)
[2023-07-18] MEDS: CLOPIDOGREL 75 MG TAB PO SCH (00:03)
[2023-07-18] MEDS: ISOSORBIDE MONONITRATE ER 30 MG TAB.ER.24H PO SCH (00:03)
[2023-07-18] MEDS: METOPROLOL TARTRATE 25 MG TAB PO SCH (00:03)
[2023-07-18] MEDS: cloNIDine HCL 0.1 MG TAB PO SCH (00:03)
[2023-07-18] MEDS: lisinopriL 10 MG TAB PO SCH (00:04)
[2023-07-18] MEDS: ATORVASTATIN 10 MG TAB PO SCH (00:04)
[2023-07-18] MEDS: oxyCODONE-APAP 10-325MG 1 EACH TAB PO PRN (06:57)
[2023-07-18] MEDS: NICOTINE 14MG/24HR PATCH TRANSDERM SCH (08:27)
[2023-07-18] MEDS: PANTOPRAZOLE 40 MG TABLET PO SCH (08:28)
[2023-07-18] MEDS: FOLIC ACID 1 MG TAB PO SCH (08:28)
[2023-07-18] MEDS: MULTIVITAMINS, THERA 1 EACH TAB PO SCH (08:28)
[2023-07-18] MEDS: THIAMINE 100 MG TAB PO SCH (08:28)
[2023-07-18] MEDS: ONDANSETRON 4 MG TAB PO PRN (08:29)
[2023-07-18] MEDS ORDERED: hydrOXYzine HCL 25 MG TAB PO PRN (10:00)
[2023-07-18] MEDS: LORazepam 1 MG TAB PO PRN (10:08)
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
[2023-07-18] MEDS: traZODone HCL 100 MG TAB PO PRN (22:14)
[2023-07-18] MEDS: MAGNESIUM OXIDE 400 MG TAB PO SCH (22:57)
[2023-07-19 00:08] LABS: T4, Free (Free Thyroxine) 1.73 ng/dL (0.78-2.19)
--- NOTE | 2023-07-19 00:45 | CONS ---
CONSULTATION CHIEF COMPLAINT: Major depression with suicidal thoughts. HISTORY OF PRESENT ILLNESS: This is another admission for this 58-year-old white male, chronic alcoholic. He also has a long-standing history of coronary artery disease, hypertension, low back pain, and cirrhosis. He had been doing fairly well, not drinking lately and then apparently got upset and depressed and had some difficulty with his father with whom he was in conflict and decided to kill himself by drinking. He came to the emergency room. REVIEW OF SYSTEMS: At the present time, he has no headache, chest pain, shortness of breath, abdominal pain, nausea, vomiting, etc. Past medical history, family history, personal and social histories are all to be found in his admitting summary. PHYSICAL EXAMINATION: VITAL SIGNS: Normal. HEAD, EARS, EYES, NOSE, MOUTH AND THROAT: Normal. CHEST: Clear. CARDIAC: Normal. ABDOMEN: Protuberant, soft and nontender. There may be some ascites. EXTREMITIES: Normal. NEUROLOGICAL: He is intact. ASSESSMENT: He is admitted to the hospital with diagnoses of: 1. Major depression. 2. Suicidal thoughts. 3. Chronic alcoholism. 4. Opioid substance dependency. 5. Major depression. RECOMMENDATIONS: None. MMODL / IJN: [id number] /
[2023-07-19 09:52] LABS: LDL Cholesterol,Calculated 48.2 mg/dL (0.0-131.0)
[2023-07-19 13:01] VITALS: RESP 20
--- NOTE | 2023-07-19 15:26 | P.PN ---
Progress Note - Text Progress Note Date: 07/19/23 Follow-up Mediation Review Chief Complaint: I am having difficulty breathing and chest pain Subjective: The patient is distressed and asking for Nitroglycerine. The patient noted that he was drinking so he can . He denied being suicidal and does not want to take antidepressant. He noted that he has taken all the depressant and they dont help. He noted that only thing helps him is Alcohol, Librium, and Klonopin at higher doses. He also wants Percocet for pain. Complaint since yesterday: The patient has medical complaints as listed above. The patient has not been attending the groups. The interaction with staff and peers is limited. The patient is not compliant with treatment recommendations. Leading questions: The patient admitted to Depression and Anxiety. Denied SI or HI. Denied symptoms consistent with psychosis Sleep and Appetite: The sleeps a lot. His appetite is fair. Change in family/ living/job/financial/daily routine: No change. Change in medical condition: The patient is complaining of chest pain. Change in medications: Decrease Trazodone to 50 mg. Side effects from Medications: Low blood pressure. Not symptomatic. Objective- MSE: Alert and attentive. Orientation times three. Dressed and Groomed: Appropriately. Pleasant and cooperative. Psychomotor Activity: Normal. Speech: Normal in tone, quality, and quantity. Mood: I am concerned Affect: Consistent with mood. SI or HI: None. Perceptual disturbance: None. Thought Content: No paranoia or other delusional thinking noted. Thought Process: Normal. Cognition: Intact Judgment and Insight: Fair AIMS: Normal. Labs: Ekg reviewed. Diagnosis: No change. Plan and Recommendations: Continue current Medications. Monitor MS and side effects of medications and adjust medications accordingly. Provide supportive psychotherapy. The patient provided psychoeducation and advised The patient provided Substance abuse counseling. Smoke cessation therapy. The patient to attend delatorre activities. Medication Consent with explanation of risk/benefits and side effects: Explained and obtained.
[2023-07-19 15:41] VITALS: BP 115/61; PULSE 58; TEMP 97.5
== END 2023-07-19 17:24 | disposition short-term general hospital (02) | DRG 755 ==
LOC: EC 03:28 → 3MHU 17:55
PROVIDERS: ADMIT Psychiatry & Neurology Psychiatry; ATTEND Psychiatry & Neurology Psychiatry
DX: F43.23 Adjustment disorder with mixed anxiety and depressed mood (principal); R18.8 Other ascites; R45.851 Suicidal ideations; K74.60 Unspecified cirrhosis of liver; F10.229 Alcohol dependence with intoxication, unspecified; F11.20 Opioid dependence, uncomplicated; J44.9 Chronic obstructive pulmonary disease, unspecified; I48.91 Unspecified atrial fibrillation; I10 Essential (primary) hypertension; R07.9 Chest pain, unspecified; Z11.52 Encounter for screening for COVID-19; F43.10 Post-traumatic stress disorder, unspecified; Y90.8 Blood alcohol level of 240 mg/100 ml or more; E78.5 Hyperlipidemia, unspecified; G89.29 Other chronic pain; R10.9 Unspecified abdominal pain; I25.10 Atherosclerotic heart disease of native coronary artery without angina pectoris; M54.50 Low back pain, unspecified; M19.90 Unspecified osteoarthritis, unspecified site; M25.562 Pain in left knee; F17.200 Nicotine dependence, unspecified, uncomplicated; Z71.6 Tobacco abuse counseling; Z79.02 Long term (current) use of antithrombotics/antiplatelets; Z79.899 Other long term (current) drug therapy; Z95.1 Presence of aortocoronary bypass graft; Z71.41 Alcohol abuse counseling and surveillance of alcoholic; Z71.51 Drug abuse counseling and surveillance of drug abuser
CPT/HCPCS: 36415; 80053; 80061; 80320; 82075; 83036; 83690; 83735; 84439; 84443; 84484; 85025; 85610; 85730; 87635; 93005; 99285

== ENCOUNTER 2023-07-19 14:40 | Observation (INO) | payer OTHER ==
[2023-07-19 17:56] VITALS: RESP 16
[2023-07-19] MEDS ORDERED: LORazepam 1 MG/0.5 ML VIAL IV PRN ×3 (19:03)
[2023-07-19 19:33] LABS: Basophils # (A) 0.1 k/uL (0-0.2); Basophils % (A) 1 %; Eosinophils # (A) 0.1 k/uL (0-0.7); Eosinophils % (A) 2 %; HCT 36.4 % (39.0-53.0); HGB 12.4 gm/dL (13.0-17.5); Lymphocytes # (A) 1.4 k/uL (1.0-4.8); Lymphocytes % (A) 26 %; MCH 32.6 pg (25.0-35.0); MCHC 34.1 g/dL (31.0-37.0); MCV 95.6 fL (80.0-100.0); Mean Platelet Volume 8.4; Monocytes # (A) 0.3 k/uL (0-1.0); Monocytes % (A) 5 %; Neutrophils # (A) 3.4 k/uL (1.3-7.7); Neutrophils % (A) 63 %; Platelet Count 207 k/uL (150-450); RBC 3.81 m/uL (4.30-5.90); RDW 13.2 % (11.5-15.5); WBC 5.4 k/uL (3.8-10.6)
[2023-07-19] MEDS: oxyCODONE-APAP 10-325MG 1 EACH TAB PO PRN (20:01)
[2023-07-19] MEDS: METOPROLOL TARTRATE 25 MG TAB PO SCH (20:01)
[2023-07-19] MEDS: ISOSORBIDE MONONITRATE ER 30 MG TAB.ER.24H PO SCH (20:01)
[2023-07-19] MEDS: ONDANSETRON 4 MG TAB PO PRN (20:04)
[2023-07-19] MEDS: LORazepam 1 MG/0.5 ML VIAL IV PRN (22:24)
--- NOTE | 2023-07-20 00:54 | HP ---
HISTORY AND PHYSICAL CHIEF COMPLAINT: Chest pain with hypotension. HISTORY OF PRESENT ILLNESS: This is another admission for this 58-year-old white male, chronic alcoholic. He was admitted to [facility] with suicidal thoughts. He had apparently been having some difficulty with his father and then tried to "kill himself by drinking alcohol." He is a chronic alcoholic. He also has a history of coronary artery disease. He was on the psych floor when he developed chest pain and a blood pressure of 91/52 and psychiatrist requested that he be transferred off the psych service. REVIEW OF SYSTEMS: He has not had any confusion, arrhythmias, syncope, diaphoresis, vomiting, etc. Past medical history, family history, and personal and social histories are all otherwise unchanged, unremarkable or found in his psych note or his recent admitting and discharge summaries. PHYSICAL EXAMINATION: VITAL SIGNS: Blood pressure is 91/52. Pulse is 51. HEENT: Head, ears, eyes, nose, mouth, and throat were normal. CHEST: Clear. CARDIAC: Demonstrated sinus bradycardia. ABDOMEN: Protuberant, soft, and nontender. EXTREMITIES: Normal. NEUROLOGICAL: He is intact. DIAGNOSES: He is admitted to the hospital with diagnoses, 1. Chest pain. 2. Hypotension with bradycardia. 3. History of coronary artery disease. 4. Chronic alcoholism. 5. Depression. 6. Suicidal thoughts. PLAN: 1. Bedrest. 2. IV fluids. 3. Telemetry. 4. Monitor blood pressure and pulse. 5. Serial EKGs and troponins. MMODL / IJN: [id number] /
[2023-07-20] MEDS: traZODone HCL 100 MG TAB PO PRN (02:09)
[2023-07-20] MEDS: PANTOPRAZOLE 40 MG TABLET PO SCH (06:15)
[2023-07-20] MEDS: FOLIC ACID 1 MG TAB PO SCH (08:17)
[2023-07-20] MEDS: CLOPIDOGREL 75 MG TAB PO SCH (08:17)
[2023-07-20] MEDS: cloNIDine HCL 0.1 MG TAB PO SCH (08:17)
[2023-07-20] MEDS: ATORVASTATIN 10 MG TAB PO SCH (08:17)
[2023-07-20] MEDS: lisinopriL 10 MG TAB PO SCH (08:17)
[2023-07-20] MEDS: THIAMINE 100 MG TAB PO SCH (08:17)
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
[2023-07-20] MEDS ORDERED: 1: MVI, ADULT NO.4 WITH VIT K 10 ML, THIAMINE 100 MG, FOLIC ACID 1 MG in SODIUM CHLORIDE IV SCH ×2 (13:00→23:00)
[2023-07-20] MEDS: SODIUM CHLORIDE 0.9% 1,000 ML with MVI, ADULT NO.4 WITH VIT K 10 ML, THIAMINE 100 MG, F... IV ONE (14:18)
[2023-07-20] MEDS: ONDANSETRON 4 MG/2 ML VIAL IVP PRN (14:33)
[2023-07-20 16:56] VITALS: BP 132/77; PULSE 57; TEMP 97.1
--- NOTE | 2023-07-23 05:07 | HP ---
HISTORY AND PHYSICAL CHIEF COMPLAINT: Chest pain. HISTORY OF PRESENT ILLNESS: This gentleman presented to the emergency room with chest pain. He was intoxicated as usual. He apparently had an argument with his father and stated that he tried to kill himself by drinking. REVIEW OF SYSTEMS: He is not awake and alert. Denies any chest pain, shortness of breath, abdominal pain, etc. He does complain of some right lower quadrant pain which he has had for months and months with a negative workup. He does have an aneurysm of the right common iliac, which has been stable. PAST MEDICAL HISTORY, FAMILY HISTORY PERSONAL AND SOCIAL HISTORIES: Are all otherwise unremarkable or noncontributory. PHYSICAL EXAMINATION: VITAL SIGNS: Normal. HEENT: Head, ears, eyes, nose, mouth, throat were normal. NECK: Supple. Neck veins are not distended. CHEST: Clear. CARDIAC: Reveals normal sinus rhythm and no murmurs or extra sounds. ABDOMEN: Soft and slightly protuberant. There are no masses or visceromegaly. There is no tenderness in the right lower quadrant. There may be an element of ascites. EXTREMITIES: Normal. NEUROLOGICAL: Intact. DIAGNOSES: He is admitted to the hospital with diagnoses. 1. Acute alcohol intoxication. 2. Chronic alcoholism. 3. Depression. 4. Chest pain. 5. History of coronary artery disease. 6. History of right iliac aneurysm. 7. Right lower quadrant pain. PLAN: 1. Bedrest. 2. IV fluids. 3. Repeat EKGs and enzymes. 4. [facility] protocol. MMODL / IJN: [id number] /
--- NOTE | 2023-07-23 05:31 | DS ---
DISCHARGE SUMMARY CHIEF COMPLAINT: Chest pain and acute alcohol intoxication. HISTORY OF PRESENT ILLNESS AND PHYSICAL EXAMINATION: Details of this man's history and physical can be found in the initial workup. LABORATORY STUDIES: While he was in the hospital, he had laboratory studies, details of which can be found in the laboratory section of his chart. COURSE IN THE HOSPITAL: After admission, he was placed on bedrest, started on intravenous fluids and had serial EKGs and enzymes which were normal. He was placed on CIWA protocol. He was stabilized, was doing well, and it was felt he could be discharged. He will be sent home for outpatient followup. FINAL DIAGNOSES: 1. Chest pain. 2. History of coronary artery disease. 3. Acute alcohol intoxication. 4. Depression. 5. Chronic alcoholism. 6. Right lower quadrant pain. 7. Aneurysm in the right common iliac artery. OPERATIONS: None. CONSULTATIONS: None, he is improved. GLORIA / MAYURI: [id number] /
== END 2023-07-20 18:39 | disposition home or self-care (01) ==
LOC: INTOOBSV 17:00 → 3SCARD 17:00 → UNDODISIN 07-20 18:39
PROVIDERS: ADMIT Family Medicine; ATTEND Family Medicine
DX: R07.9 Chest pain, unspecified (principal); R45.851 Suicidal ideations; R10.31 Right lower quadrant pain; G89.29 Other chronic pain; I72.3 Aneurysm of iliac artery; F10.120 Alcohol abuse with intoxication, uncomplicated; I95.9 Hypotension, unspecified; R00.1 Bradycardia, unspecified; I25.10 Atherosclerotic heart disease of native coronary artery without angina pectoris; I48.91 Unspecified atrial fibrillation; J44.9 Chronic obstructive pulmonary disease, unspecified; E78.5 Hyperlipidemia, unspecified; I10 Essential (primary) hypertension; F41.9 Anxiety disorder, unspecified; F32.A Depression, unspecified; F17.200 Nicotine dependence, unspecified, uncomplicated; Y90.8 Blood alcohol level of 240 mg/100 ml or more; E66.9 Obesity, unspecified; Z68.33 Body mass index [BMI] 33.0-33.9, adult; Z95.1 Presence of aortocoronary bypass graft; Z79.02 Long term (current) use of antithrombotics/antiplatelets; Z79.899 Other long term (current) drug therapy
CPT/HCPCS: 96376; 96374; 96375; 84484; 85025; G0378 ×2; G0379; J2060 ×2; J3411; J2405

== ENCOUNTER 2023-07-21 01:43 | Emergency (ER) | payer OTHER ==
[2023-07-21 01:49] VITALS: RESP 20; TEMP 97.1
[2023-07-21] MEDS: ZIPRASIDONE 20 MG VIAL IM STA (01:58)
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
[2023-07-21 06:20] VITALS: BP 142/94; PULSE 88
== END 2023-07-21 06:19 | disposition home or self-care (01) ==
LOC: EC 01:43
DX: F10.129 Alcohol abuse with intoxication, unspecified (principal); R45.6 Violent behavior; I25.10 Atherosclerotic heart disease of native coronary artery without angina pectoris; R00.0 Tachycardia, unspecified; F17.290 Nicotine dependence, other tobacco product, uncomplicated; Z79.899 Other long term (current) drug therapy
CPT/HCPCS: 36415; 93005; 99285; 96372; G0480; J3486; 80320

== ENCOUNTER 2023-07-28 00:32 | Emergency (ER) | payer OTHER ==
[2023-07-28 00:56] VITALS: TEMP 98.3
[2023-07-28] MEDS: oxyCODONE-APAP 7.5-325MG 1 EACH TAB PO STA (01:36)
[2023-07-28] MEDS: NICOTINE 14MG/24HR PATCH TRANSDERM STA (01:37)
[2023-07-28] MEDS: ZIPRASIDONE 20 MG VIAL IM STA (02:48)
[2023-07-28] MEDS: LORazepam 2 MG/ML INJ IM STA (02:49)
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
[2023-07-28 10:14] VITALS: BP 115/72; PULSE 74; RESP 17
== END 2023-07-28 10:21 | disposition home or self-care (01) ==
LOC: EC 00:32
DX: F32.A Depression, unspecified (principal); F10.129 Alcohol abuse with intoxication, unspecified; F17.290 Nicotine dependence, other tobacco product, uncomplicated; F12.90 Cannabis use, unspecified, uncomplicated
CPT/HCPCS: 82075; 99285; 96372 ×2; S4990; J2060; J3486

== ENCOUNTER 2023-08-04 00:06 | Emergency (ER) | payer OTHER ==
[2023-08-04 00:11] VITALS: BP 154/83; PULSE 92; RESP 20; TEMP 97.9
[2023-08-04 00:51] LABS: Basophils % (A) 1 %; Eosinophils # (A) 0.1 k/uL (0-0.7); Eosinophils % (A) 2 %; HCT 36.2 % (39.0-53.0); HGB 12.4 gm/dL (13.0-17.5); Lymphocytes # (A) 1.4 k/uL (1.0-4.8); Lymphocytes % (A) 34 %; MCH 32.6 pg (25.0-35.0); MCHC 34.2 g/dL (31.0-37.0); MCV 95.4 fL (80.0-100.0); Mean Platelet Volume 7.6; Monocytes # (A) 0.2 k/uL (0-1.0); Monocytes % (A) 5 %; Neutrophils # (A) 2.3 k/uL (1.3-7.7); Neutrophils % (A) 56 %; Platelet Count 110 k/uL (150-450); RBC 3.79 m/uL (4.30-5.90); RDW 13.2 % (11.5-15.5); WBC 4.1 k/uL (3.8-10.6)
[2023-08-04 01:06] LABS: INR 0.9 (<1.2); Prothrombin Time 10.4 sec (10.0-12.5)
[2023-08-04 01:24] LABS: ALT 23 U/L (4-49); AST 40 U/L (17-59); African American GFR (CKD) 60 (>60 ml/min/1.73 sqM); Albumin 4.9 g/dL (3.5-5.0); Alkaline Phosphatase 42 U/L (38-126); Anion Gap 13 mmol/L; Blood Urea Nitrogen 19 mg/dL (9-20); Calcium 9.4 mg/dL (8.4-10.2); Carbon Dioxide 21 mmol/L (22-30); Chloride 100 mmol/L (98-107); Glucose 116 mg/dL (74-99); Non-African American GFR(CKD) 52 (>60 ml/min/1.73 sqM); Potassium 3.4 mmol/L (3.5-5.1); Sodium 134 mmol/L (137-145); Total Bilirubin 0.6 mg/dL (0.2-1.3); Total Protein 7.1 g/dL (6.3-8.2)
[2023-08-04 02:02] LABS: Alcohol 268 mg/dL
== END 2023-08-04 02:27 | disposition left against medical advice (07) ==
LOC: EC 00:06
DX: Z53.21 Procedure and treatment not carried out due to patient leaving prior to being seen by health care provider (principal); R07.9 Chest pain, unspecified
CPT/HCPCS: 36415; 93005; 80053; 84484; 85025; 85610; 85730; 99499; G0480; 80320

== ENCOUNTER 2023-08-05 01:34 | Emergency (ER) | payer OTHER ==
[2023-08-05 01:39] VITALS: BP 128/82; PULSE 76; RESP 18; TEMP 97.8
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
== END 2023-08-05 02:51 | disposition left against medical advice (07) ==
LOC: EC 01:34
DX: R07.9 Chest pain, unspecified (principal); F17.200 Nicotine dependence, unspecified, uncomplicated; Z53.29 Procedure and treatment not carried out because of patient's decision for other reasons
CPT/HCPCS: 93005; 99285; 99499

== ENCOUNTER 2023-08-07 20:44 | Emergency (ER) | payer OTHER ==
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
[2023-08-07 20:53] VITALS: BP 118/74; PULSE 57; RESP 18; TEMP 97.6
[2023-08-07 21:47] LABS: Basophils # (A) 0.1 k/uL (0-0.2); Basophils % (A) 1 %; Eosinophils # (A) 0.1 k/uL (0-0.7); Eosinophils % (A) 1 %; HCT 35.7 % (39.0-53.0); HGB 12.3 gm/dL (13.0-17.5); Lymphocytes # (A) 1.6 k/uL (1.0-4.8); Lymphocytes % (A) 25 %; MCHC 34.5 g/dL (31.0-37.0); MCV 95.6 fL (80.0-100.0); Mean Platelet Volume 8.2; Monocytes # (A) 0.3 k/uL (0-1.0); Monocytes % (A) 5 %; Neutrophils # (A) 4.1 k/uL (1.3-7.7); Neutrophils % (A) 66 %; Platelet Count 210 k/uL (150-450); RBC 3.73 m/uL (4.30-5.90); RDW 13.6 % (11.5-15.5); WBC 6.2 k/uL (3.8-10.6)
[2023-08-07 21:50] LABS: INR 0.9 (<1.2); Partial Thromboplastin Time 23.3 sec (22.0-30.0); Prothrombin Time 10.4 sec (10.0-12.5)
[2023-08-07 21:58] LABS: ALT 24 U/L (4-49); AST 43 U/L (17-59); African American GFR (CKD) 39 (>60 ml/min/1.73 sqM); Albumin 4.7 g/dL (3.5-5.0); Alkaline Phosphatase 42 U/L (38-126); Anion Gap 10 mmol/L; Blood Urea Nitrogen 15 mg/dL (9-20); Carbon Dioxide 21 mmol/L (22-30); Chloride 104 mmol/L (98-107); Glucose 102 mg/dL (74-99); Magnesium 1.6 mg/dL (1.6-2.3); Non-African American GFR(CKD) 34 (>60 ml/min/1.73 sqM); Potassium 3.4 mmol/L (3.5-5.1); Sodium 135 mmol/L (137-145); Total Bilirubin 0.5 mg/dL (0.2-1.3); Total Protein 6.8 g/dL (6.3-8.2)
--- NOTE | 2023-08-07 21:58 | XR ---
EXAMINATION TYPE: XR chest 2V DATE OF EXAM: 08/07/2023 9:40 PM CLINICAL INDICATION:Male, 58 years old with history of Chest Pain; [facility] COMPARISON: Chest radiographs from 07/15/2023 TECHNIQUE: XR chest 2V Frontal and lateral views of the chest. FINDINGS: Lungs/Pleura: There is no evidence of pleural effusion, focal consolidation, or pneumothorax. Pulmonary vascularity: Unremarkable. Heart/mediastinum: Cardiomediastinal silhouette is unremarkable. Left atrial appendage occlusion tarah ce is present. Musculoskeletal: No acute osseous pathology. Midline sternotomy wires are noted. IMPRESSION: No acute cardiopulmonary disease/process.
[2023-08-07 22:13] LABS: Alcohol 299 mg/dL
== END 2023-08-07 22:20 | disposition left against medical advice (07) ==
LOC: EC 20:44
DX: R07.89 Other chest pain (principal); R45.6 Violent behavior; F10.10 Alcohol abuse, uncomplicated; F17.200 Nicotine dependence, unspecified, uncomplicated; F12.90 Cannabis use, unspecified, uncomplicated; Y90.8 Blood alcohol level of 240 mg/100 ml or more
CPT/HCPCS: 36415; 93005; 80053; 83735; 84484; 85025; 85610; 85730; 71046; 99285; G0480; 80320

== ENCOUNTER 2023-08-07 23:16 | Inpatient (IN) | payer MEDICAID, OTHER ==
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
[2023-08-08] MEDS: oxyCODONE-APAP 10-325MG 1 EACH TAB PO STA ×2 (00:58→07:37)
[2023-08-08] MEDS: NICOTINE 21MG/24HR PATCH TRANSDERM STA (01:00)
[2023-08-08] MEDS ORDERED: LORazepam 2 MG/ML INJ IV PRN ×3 (04:58)
[2023-08-08] MEDS ORDERED: LORazepam 0.5 MG TAB PO PRN (04:58)
[2023-08-08] MEDS ORDERED: LORazepam 1 MG TAB PO PRN ×3 (04:58)
[2023-08-08 06:08] LABS: Basophils # (A) 0.1 k/uL (0-0.2); Basophils % (A) 1 %; Eosinophils # (A) 0.1 k/uL (0-0.7); Eosinophils % (A) 2 %; HCT 37.4 % (39.0-53.0); HGB 12.6 gm/dL (13.0-17.5); Lymphocytes # (A) 2.4 k/uL (1.0-4.8); Lymphocytes % (A) 40 %; MCH 32.5 pg (25.0-35.0); MCHC 33.6 g/dL (31.0-37.0); MCV 96.7 fL (80.0-100.0); Mean Platelet Volume 7.5; Monocytes # (A) 0.3 k/uL (0-1.0); Monocytes % (A) 6 %; Neutrophils # (A) 2.9 k/uL (1.3-7.7); Neutrophils % (A) 50 %; Platelet Count 250 k/uL (150-450); RBC 3.87 m/uL (4.30-5.90); RDW 13.2 % (11.5-15.5); WBC 5.8 k/uL (3.8-10.6)
[2023-08-08 06:24] LABS: ALT 22 U/L (4-49); AST 37 U/L (17-59); Acetaminophen <10.0 ug/mL; African American GFR (CKD) 41 (>60 ml/min/1.73 sqM); Albumin 4.4 g/dL (3.5-5.0); Alkaline Phosphatase 41 U/L (38-126); Anion Gap 9 mmol/L; Blood Urea Nitrogen 17 mg/dL (9-20); Calcium 8.7 mg/dL (8.4-10.2); Carbon Dioxide 21 mmol/L (22-30); Chloride 105 mmol/L (98-107); Glucose 113 mg/dL (74-99); Lipase 191 U/L (23-300); Magnesium 1.6 mg/dL (1.6-2.3); Non-African American GFR(CKD) 35 (>60 ml/min/1.73 sqM); Phosphorus 3.5 mg/dL (2.5-4.5); Potassium 3.5 mmol/L (3.5-5.1); Salicylate <1.0 mg/dL; Sodium 135 mmol/L (137-145); Total Bilirubin 0.5 mg/dL (0.2-1.3); Total Protein 6.4 g/dL (6.3-8.2)
[2023-08-08 07:06] LABS: Alcohol 146 mg/dL
[2023-08-08] MEDS: SODIUM CHLORIDE 0.9% 1,000 ML IV STA (07:44)
[2023-08-08] MEDS: SODIUM CHLORIDE 0.9% 500 ML 500 ML IV STA (07:44)
[2023-08-08 08:50] LABS: Amphetamine Screen,Urine Not Detected (NotDetected); Barbiturate Screen,Urine Not Detected (NotDetected); Benzodiazepines Screen,Urine Detected (NotDetected); Cocaine Screen,Urine Not Detected (NotDetected); Methadone Screen, Urine Not Detected (NotDetected); Opiate Screen,Urine Not Detected (NotDetected); Phencyclidine Screen,Urine Not Detected (NotDetected); Tricyclic Antidepressant,Urine Not Detected (NotDetected); Urn Cannabinoid Scrn Not Detected (NotDetected)
[2023-08-08 08:51] LABS: Oxycodone Screen, Urine Detected (NotDetected)
[2023-08-08] MEDS ORDERED: ACETAMINOPHEN TAB 325 MG TAB PO PRN (12:55)
[2023-08-08] MEDS ORDERED: MAG HYDROX/AL HYDROX/SIMETH 355 ML BOTTLE PO PRN (12:55)
[2023-08-08] MEDS ORDERED: MAGNESIUM HYDROXIDE 2,400 MG/30 ML CUP PO PRN (12:55)
[2023-08-08] MEDS: THIAMINE 100 MG/ML 2 ML VIAL IM STA (14:30)
[2023-08-08] MEDS: ISOSORBIDE MONONITRATE ER 30 MG TAB.ER.24H PO SCH (15:32)
[2023-08-08] MEDS: CLOPIDOGREL 75 MG TAB PO SCH (15:32)
[2023-08-08] MEDS: cloNIDine HCL 0.1 MG TAB PO SCH (15:32)
[2023-08-08] MEDS: lisinopriL 10 MG TAB PO SCH (15:33)
[2023-08-08] MEDS: ATORVASTATIN 10 MG TAB PO SCH (15:33)
[2023-08-08] MEDS: CHLORTHALIDONE 25 MG TAB PO SCH (15:33)
[2023-08-08] MEDS: oxyCODONE-APAP 10-325MG 1 EACH TAB PO PRN (15:59)
[2023-08-08] MEDS: PANTOPRAZOLE 40 MG TABLET PO SCH (17:51)
--- NOTE | 2023-08-08 21:22 | HP ---
HISTORY AND PHYSICAL CHIEF COMPLAINT: Major depression with suicidal thoughts. HISTORY OF PRESENT ILLNESS: This is an another recent admission for this 58-year-old chronic alcoholic. He is severely alcoholic and has been in the hospital on numerous occasions for DTs. He also has a history of coronary artery disease status post CABG and he is developing cirrhosis with ascites. He apparently has been having some difficulty with his father and several weeks ago tried to commit suicide by overdosing on alcohol. REVIEW OF SYSTEMS: He is intoxicated. Past medical history, family history, and personal and social histories are unchanged. PHYSICAL EXAMINATION: VITAL SIGNS: Blood pressure 156/100. The rest of his vital signs are normal. HEAD, EARS, EYES, NOSE, MOUTH, AND THROAT: Normal. CHEST: Clear. CARDIAC: Sinus rhythm. ABDOMEN: Protuberant. Abdomen is soft and nontender, and there was ascites. EXTREMITIES: Normal. IMPRESSION: 1. Major depression with suicidal thoughts. 2. Chronic alcoholism. 3. Cirrhosis with ascites. 4. Coronary artery disease status post coronary artery bypass graft. 5. Low back pain. RECOMMENDATIONS: Patient may need management for delirium tremens. MMODL / IJN: [id number] /
[2023-08-08] MEDS: METOPROLOL TARTRATE 25 MG TAB PO SCH (22:09)
[2023-08-08] MEDS: CLOTRIMAZOLE 1% CREAM 30 GM TUBE TOPICAL SCH (22:10)
[2023-08-08] MEDS: traZODone HCL 100 MG TAB PO PRN (22:46)
[2023-08-09] MEDS: NICOTINE 21MG/24HR PATCH TRANSDERM SCH (08:31)
[2023-08-09] MEDS: THIAMINE 100 MG TAB PO SCH (08:31)
[2023-08-09] MEDS: FOLIC ACID 1 MG TAB PO SCH (08:31)
[2023-08-09] MEDS: MULTIVITAMINS, THERA 1 EACH TAB PO SCH (08:32)
[2023-08-09] MEDS ORDERED: cloNIDine HCL 0.1 MG TAB PO SCH (09:00)
[2023-08-09] MEDS ORDERED: CHLORTHALIDONE 25 MG TAB PO SCH (09:00)
[2023-08-09] MEDS ORDERED: ATORVASTATIN 10 MG TAB PO SCH (09:00)
[2023-08-09] MEDS ORDERED: CLOPIDOGREL 75 MG TAB PO SCH (09:00)
[2023-08-09] MEDS ORDERED: ISOSORBIDE MONONITRATE ER 30 MG TAB.ER.24H PO SCH (09:00)
[2023-08-09] MEDS ORDERED: lisinopriL 10 MG TAB PO SCH (09:00)
[2023-08-09] MEDS: hydrOXYzine HCL 25 MG TAB PO PRN (13:21)
--- NOTE | 2023-08-09 13:37 | P.HP ---
Psychiatric H&P - . H&P Date: 08/09/23 History & Physical: Allergies Allergy/AdvReac Type Severity Reaction Status Date / Time No Known Allergies Allergy Verified 08/08/23 10:22 Vital Signs Temp 97.1 F L 08/09/23 06:36 Pulse 72 08/09/23 08:32 Resp 16 08/09/23 06:36 BP 131/84 08/09/23 08:32 Pulse Ox 100 08/09/23 08:32 FiO2 Intake & Output 08/08/23 08/09/23 08/09/23 18:59 06:59 18:59 Weight 101.151 kg Laboratory Last Values WBC 5.8 k/uL (3.8-10.6) 08/08/23 05:34 RBC 3.87 m/uL (4.30-5.90) L 08/08/23 05:34 Hgb 12.6 gm/dL (13.0-17.5) L 08/08/23 05:34 Hct 37.4 % (39.0-53.0) L 08/08/23 05:34 MCV 96.7 fL (80.0-100.0) 08/08/23 05:34 MCH 32.5 pg (25.0-35.0) 08/08/23 05:34 MCHC 33.6 g/dL (31.0-37.0) 08/08/23 05:34 RDW 13.2 % (11.5-15.5) 08/08/23 05:34 Plt Count 250 k/uL (150-450) 08/08/23 05:34 MPV 7.5 08/08/23 05:34 Neutrophils % 50 % 08/08/23 05:34 Lymphocytes % 40 % 08/08/23 05:34 Monocytes % 6 % 08/08/23 05:34 Eosinophils % 2 % 08/08/23 05:34 Basophils % 1 % 08/08/23 05:34 Neutrophils # 2.9 k/uL (1.3-7.7) 08/08/23 05:34 Lymphocytes # 2.4 k/uL (1.0-4.8) 08/08/23 05:34 Monocytes # 0.3 k/uL (0-1.0) 08/08/23 05:34 Eosinophils # 0.1 k/uL (0-0.7) 08/08/23 05:34 Basophils # 0.1 k/uL (0-0.2) 08/08/23 05:34 Sodium 135 mmol/L (137-145) L 08/08/23 05:34 Potassium 3.5 mmol/L (3.5-5.1) 08/08/23 05:34 Chloride 105 mmol/L (98-107) 08/08/23 05:34 Carbon Dioxide 21 mmol/L (22-30) L 08/08/23 05:34 Anion Gap 9 mmol/L 08/08/23 05:34 BUN 17 mg/dL (9-20) 08/08/23 05:34 Creatinine 2.06 mg/dL (0.66-1.25) H 08/08/23 05:34 Est GFR (CKD-EPI)AfAm 41 (>60 ml/min/1.73 sqM) 08/08/23 05:34 Est GFR (CKD-EPI)NonAf 35 (>60 ml/min/1.73 sqM) 08/08/23 05:34 Glucose 113 mg/dL (74-99) H 08/08/23 05:[address] Glu mg/dL 117 mg/dL 08/08/23 05:34 Hemoglobin A1c 5.7 % (<=6.0) 08/08/23 05:34 Calcium 8.7 mg/dL (8.4-10.2) 08/08/23 05:34 Phosphorus 3.5 mg/dL (2.5-4.5) 08/08/23 05:34 Magnesium 1.6 mg/dL (1.6-2.3) 08/08/23 05:34 Total Bilirubin 0.5 mg/dL (0.2-1.3) 08/08/23 05:34 AST 37 U/L (17-59) 08/08/23 05:34 ALT 22 U/L (4-49) 08/08/23 05:34 Alkaline Phosphatase 41 U/L (38-126) 08/08/23 05:34 Total Protein 6.4 g/dL (6.3-8.2) 08/08/23 05:34 Albumin 4.4 g/dL (3.5-5.0) 08/08/23 05:34 Lipase 191 U/L (23-300) 08/08/23 05:34 TSH 5.610 mIU/L (0.465-4.680) H 08/08/23 05:34 Salicylates <1.0 mg/dL 08/08/23 05:34 Urine Opiates Screen Not Detected (NotDetected) 08/08/23 08:29 Ur Oxycodone Screen Detected (NotDetected) H 08/08/23 08:29 Urine Methadone Screen Not Detected (NotDetected) 08/08/23 08:29 Acetaminophen <10.0 ug/mL 08/08/23 05:34 Ur Barbiturates Screen Not Detected (NotDetected) 08/08/23 08:29 U Tricyclic Antidepress Not Detected (NotDetected) 08/08/23 08:29 Ur Phencyclidine Scrn Not Detected (NotDetected) 08/08/23 08:29 Ur Amphetamines Screen Not Detected (NotDetected) 08/08/23 08:29 U Methamphetamines Scrn Not Detected (NotDetected) 08/08/23 08:29 U Benzodiazepines Scrn Detected (NotDetected) H 08/08/23 08:29 Urine Cocaine Screen Not Detected (NotDetected) 08/08/23 08:29 U Marijuana (THC) Screen Not Detected (NotDetected) 08/08/23 08:29 Serum Alcohol 146 mg/dL 08/08/23 05:34 SARS-CoV-2 (PCR) Not Detected (Not Detectd) 08/08/23 05:54 08/09/23 13:36 Psychiatric Evaluation Identifying Data: Mr. Flowers is 58 years old, single, white male, who lives in [place], [place] in an apartment. Chief Complaint: Depression History of Psychiatric Illness- The patient came to the ER after drinking, feeling depressed and to get detoxed. He also requested to get a letter to help him get a bigger apartment. detoxed. He stated that he was last admitted for similar reasons. He stated that when he is caged in a small room then he starts drinking. He requested for Ativan or klonopin for his anxiety. He stated that his living situation is bad. The patient noted that he has PTSD. He feels Claustrophobic in that apartment. He reports anxiety, irritability, frustration, nausea, and no desire to be in a small place. He gets Claustrophobic. The patient is under [facility] 5-10 years ago. The patient noted that no medications worked. The patient noted that only thing works is alcohol, or Benzodiazepines. The patient refused to take any antidepressant medication stating that those medications do not work. He agreed to take Buspar and Hydroxyzine for his anxiety. Past Psychiatric History: The patient indicated that he went to [facility] 5-10 years. He was in treatment for 2 years. He reports that he was diagnosed with PTSD. He was not given any medications for PTSD. The patient noted that he went to group home, which resulted in to PTSD. The patient denied any past psychiatrist admissions. He denied any h/o suicidal or homicidal ideations or behavior. Past Medication History: The patient could not name the medications but stated that none of the antidepressants worked. He noted that Librium and Klonopin he lped a little. Leading questions: The patient admitted Anxiety. Denied SI or HI. Denied symptoms consistent with psychosis Drugs and alcohol history: The patient noted that his drug of choice is Alcohol. He has been drinking since age 16. He started heavy use in his thirties. He has tried other drugs but never used them regularly. He denied use of Marijuana. Tobacco use: Vapes occasionally. Past Medical history: Ref to EMR Family History of Psychiatric Disorder: Paternal grandmother had mental illness. The patient does not know the details. No h/o suicide or homicide. Social History and Family History: The patient was born in [place] and raised in [facility]. He grew-up with 2 sisters and one brother. Never . No children. He finished HS. Associate degree in [employer] and [employer]. His longest job was for 6 years. OTC: Motrin Allergies: None as per patient. Objective: MSE: Alert and attentive. Orientation times three Dressed and Groomed: Appropriately. Pleasant and cooperative. Psychomotor Activity: Normal. Speech: Normal in tone, quality, and quantity. Mood: Anxious. Affect: Appropriate. SI or HI: None. Perceptual disturbance: None. Thought Content: No paranoia or other delusional thinking noted. Thought Process: Normal. Cognition: Intact Judgment and Insight: Poor. AIMS: Normal Labs: Available labs reviewed. Diagnosis: Adjustment disorder with mixed emotional disturbance. H/O PTSD Alcohol Dependence Plan and Recommendations: Continue current Medications. Add Buspar 10 mg bid, Hydroxyzine 25 mg po tid for Monitor MS and side effects of medications and adjust medications accordingly. Provide supportive psychotherapy and psychoeducation. The patient provided psychoeducation. The patient provided with substance abuse counselling and advised to attend AA/NA Smoke cessation therapy. The patient to attend delatorre Milieu. CBC with Diff, CMP, TSH, Lipid Profile, HbA1c, EKG, Medication Consent with explanation of risk/benefits and side effects: Explained and obtained.
--- NOTE | 2023-08-09 14:40 | P.HP ---
Psychiatric H&P - . H&P Date: 08/09/23 History & Physical: 08/09/23 14:39 Psychiatric Evaluation Identifying Data: Mr. Flowers is 58 years old, single, white male, who lives in [place], [place] in an apartment. Chief Complaint: Depression History of Psychiatric Illness- The patient came to the ER after drinking, feeling depressed and to get detoxed. He also requested to get a letter to help him get a bigger apartment. detoxed. He stated that he was last admitted for similar reasons. He stated that when he is caged in a small room then he starts drinking. He requested for Ativan or klonopin for his anxiety. He stated that his living situation is bad. The patient noted that he has PTSD. He feels Claustrophobic in that apartment. He reports anxiety, irritability, frustration, nausea, and no desire to be in a small place. He gets Claustrophobic. The patient is under [facility] 5-10 years ago. The patient noted that no medications worked. The patient noted that only thing works is alcohol, or Benzodiazepines. The patient refused to take any antidepressant medication stating that those medications do not work. He agreed to take Buspar and Hydroxyzine for his anxiety. Past Psychiatric History: The patient indicated that he went to [facility] 5-10 years. He was in treatment for 2 years. He reports that he was diagnosed with PTSD. He was not given any medications for PTSD. The patient noted that he went to custodial, which resulted in to PTSD. The patient denied any past psychiatrist admissions. He denied any h/o suicidal or homicidal ideations or behavior. Past Medication History: The patient could not name the medications but stated that none of the antidepressants worked. He noted that Librium and Klonopin helped a little. Leading questions: The patient admitted Anxiety. Denied SI or HI. Denied symptoms consistent with psychosis Drugs and alcohol history: The patient noted that his drug of choice is Alcohol. He has been drinking since age 16. He started heavy use in his thirties. He has tried other drugs but never used them regularly. He denied use of Marijuana. Tobacco use: Vapes occasionally. Past Medical history: Ref to EMR Family History of Psychiatric Disorder: Paternal grandmother had mental illness. The patient does not know the details. No h/o suicide or homicide. Social History and Family History: The patient was born in [place] and raised in [place]. He grew-up with 2 sisters and one brother. Never . No children. He finished HS. 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 His longest job was for 6 years. OTC: Motrin Allergies: None as per patient. Objective: MSE: Alert and attentive. Orientation times three Dressed and Groomed: Appropriately. Pleasant and cooperative. Psychomotor Activity: Normal. Speech: Normal in tone, quality, and quantity. Mood: Anxious. Affect: Appropriate. SI or HI: None. Perceptual disturbance: None. Thought Content: No paranoia or other delusional thinking noted. Thought Process: Normal. Cognition: Intact Judgment and Insight: Poor. AIMS: Normal Labs: Available labs reviewed. Diagnosis: Adjustment disorder with mixed emotional disturbance. H/O PTSD Alcohol Dependence Plan and Recommendations: Continue current Medications. Add Buspar 10 mg bid, Hydroxyzine 25 mg po tid for Monitor MS and side effects of medications and adjust medications accordingly. Provide supportive psychotherapy and psychoeducation. The patient provided psychoeducation. The patient provided with substance abuse counselling and advised to attend AA/NA Smoke cessation therapy. The patient to attend delatorre Milieu. CBC with Diff, CMP, TSH, Lipid Profile, HbA1c, EKG, Medication Consent with explanation of risk/benefits and side effects: Explained and obtained.
[2023-08-09] MEDS ORDERED: PANTOPRAZOLE 40 MG TABLET PO ONE (17:30)
[2023-08-09] MEDS: IBUPROFEN 600 MG TAB PO PRN (20:39)
[2023-08-09] MEDS: busPIRone HCl 10 MG TAB PO SCH (20:39)
[2023-08-09] MEDS: ONDANSETRON 4 MG TAB PO PRN (21:40)
--- NOTE | 2023-08-10 12:52 | P.PN ---
Progress Note - Text Progress Note Date: 08/10/23 Follow-up Mediation Review Chief Complaint: I am feeling good Subjective: The patient noted that he has been taking Buspar. He feels it is helping him. He noted that his anxiety is improved. He asked for discharge. The patient was gently redirected. He reported no side effects. The Buspar to be increased to 10 mg po tid. The patient has been attending the groups. The participation is good. The interaction with staff and peers is good. The patient is compliant with treatment recommendations. Leading questions: The patient admitted to mild Depression and Anxiety. Denied SI or HI. Denied symptoms consistent with psychosis Sleep and Appetite: Fine. Change in family/ living/job/financial/daily routine: No change. Change in medical condition: No change. Change in medications: No change. Side effects from Medications: None. Objective- MSE: Alert and attentive. Orientation times three. Dressed and Groomed: Appropriately. Pleasant and cooperative. Psychomotor Activity: Normal. Speech: Normal in tone, quality, and quantity. Mood: Better not as bad as before Affect: Appropriate. SI or HI: None. Perceptual disturbance: None. Thought Content: No paranoia or other delusional thinking noted. Thought Process: Normal. Cognition: Intact Judgment and Insight: Good AIMS: Normal. Labs: No new labs. Diagnosis: No change Plan and Recommendations: Continue current Medications. Monitor MS and side effects of medications and adjust medications accordingly. Provide supportive psychotherapy. The patient provided psychoeducation and advised The patient provided Substance abuse counseling. Smoke cessation therapy. The patient to attend delatorre activities. CBC with Diff, CMP, TSH, Lipid Profile, HbA1c, Medication Consent with explanation of risk/benefits and side effects: Explained and obtained.
--- NOTE | 2023-08-11 19:04 | P.PN ---
Progress Note - Text Progress Note Date: 08/11/23 Interval History: Patient was seen wandering the hallways and was directable and agreeable to speak with web content writer in the office. Patient is fixated on pain management and treatment. He reports that his dose of oxycodone is higher frequency when he is seen by Dr. Martini. However, patient does not appear to be in distress and states that this abdominal pain has been chronic in nature and not worsening in severity. He was informed that internal medicine will be contacted to reevaluate him. He reports doing well otherwise and says that his anxiety has been much more manageable, especially when taking Vistaril. He endorses fair mood. He reports good sleep and appetite. He endorses having had regular bowel movements without any concerns. He denies any symptoms consistent with alcohol withdrawal currently. At this time patient denies any suicidal or homicidal ideations, intent or plan. Patient denies any auditory, visual hallucinations and denies any paranoia or delusions. Patient denies any side effects from the medications and has been compliant with meds. Mental Status Exam: Alert and attentive. Orientation times three. Dressed and Groomed: Appropriately. Pleasant and somewhat cooperative. Psychomotor Activity: Normal. Speech: Normal in tone, quality, and quantity. Mood: not bad Affect: Appropriate. SI or HI: None. Perceptual disturbance: None. Thought Content: No paranoia or other delusional thinking noted. focused on pain Thought Process: Normal. Cognition: Intact Judgment and Insight: Good Abdomen: palpated abdomen and no guarding or rebound tenderness Assessment adjustment disorder Alcohol use disorder Plan: -Patient continues to meet criteria for inpatient psychiatric admission for symptom stabilization and safety. -Medications: continue BuSpar 10 twice a day, clonidine 0.1 mg at bedtime, and trazodone 100 mg at bedtime when necessary for sleep On CIWA protocol with Ativan. Vitamin replacement -When necessary Ativan for agitation/aggression. - IM on board and contacted re: abdominal pain -NRT - nicotine patch -SW on board for discharge planning. Encouraged the patient to participate in milieu.
[2023-08-11] MEDS: LORazepam 1 MG TAB PO PRN (21:50)
--- NOTE | 2023-08-12 02:16 | PN ---
PROGRESS NOTE DATE OF SERVICE: 08/09/2023 CHIEF COMPLAINT: Major depression with suicidal thoughts and alcoholism. HISTORY OF PRESENT ILLNESS: This gentleman is doing well. He is not having any significant problems with DTs. He remains quite depressed. PHYSICAL EXAMINATION: CHEST: Clear. CARDIAC: Normal. ABDOMEN: Soft and nontender. VITAL SIGNS: Normal. IMPRESSION: 1. Chronic alcoholism. 2. Acute alcohol intoxication. 3. Major depression with suicidal thoughts. PLAN: No change in his program at this time and monitor his blood pressure and chest pain. MMODL / IJN: [id number] /
[2023-08-12 07:01] VITALS: RESP 16
[2023-08-12] MEDS: LORazepam 1 MG TAB PO PRN (08:50)
--- NOTE | 2023-08-12 16:02 | P.PN ---
Progress Note - Text Progress Note Date: 08/12/23 Interval History: Patient was seen wandering the hallways and was directable and agreeable to speak with procedure writer in the office. Patient states that he plans to make an outpatient appointment with Dr. Martini to follow-up on stomach problems. He states that he has otherwise been doing well. He discussed addiction to alcohol at length today. He describes numerous supports that he has including AA meetings that he used to attend. He plans to attend AA once again. He is m otivated to maintain sobriety in his life as an attempt to achieving his goals. Discussed medications to help with alcohol abstinence and patient was agreeable with being on Campral. Discussed risks, side effects, benefits, alternatives. Patient states that today his mood has been "pretty good ". He denies any other concerns and reports no alcohol withdrawal symptoms currently. He reports good sleep and appetite. At this time patient denies any suicidal or homicidal ideations, intent or plan. Patient denies any auditory, visual hallucinations and denies any paranoia or delusions. Patient denies any side effects from the medications and has been compliant with meds. Mental Status Exam: Alert and attentive. Orientation times three. Dressed and Groomed: Appropriately. Pleasant and somewhat cooperative. Psychomotor Activity: Normal. Speech: Normal in tone, quality, and quantity. Mood: pretty good Affect: Appropriate. SI or HI: None. Perceptual disturbance: None. Thought Content: No paranoia or other delusional thinking noted. discussed attending the AA meetings. Thought Process: Normal. Cognition: Intact Judgment and Insight: Good Abdomen: palpated abdomen and no guarding or rebound tenderness Assessment adjustment disorder Alcohol use disorder Plan: -Patient continues to meet criteria for inpatient psychiatric admission for symptom stabilization and safety. -Medications: continue BuSpar 10 twice a day, clonidine 0.1 mg at bedtime, and trazodone 100 mg at bedtime when necessary for sleep start Campral 333 3 times a day for alcohol abstinence On CIWA protocol with Ativan. Vitamin replacement -When necessary Ativan for agitation/aggression. -NRT - nicotine patch -SW on board for discharge planning. Encouraged the patient to participate in milieu.
[2023-08-12] MEDS: ACAMPROSATE CALCIUM 333 MG TABLET.DR PO SCH ×2 (16:33→20:51)
--- NOTE | 2023-08-13 22:32 | P.PN ---
Progress Note - Text Progress Note Date: 08/13/23 Follow-up Mediation Review Chief Complaint: I am anxious Subjective: The patient noted that he is having significant pain in his abdomen. He wants to see his medical massage therapist. The patient in general talked about his medical concerns and why he gets very worried when he experiences medical symptoms. His mood is fine but he is worrying about his abdomen. The patient has been attending the groups. The participation is good. The interaction with staff and peers is good. The patient is compliant with treatment recommendations. Leading questions: The patient admitted to mild Depression and Anxiety. Denied SI or HI. Denied symptoms consistent with psychosis Sleep and Appetite: Fine. Change in family/ living/job/financial/daily routine: No change. Change in medical condition: No change. Change in medications: No change. Side effects from Medications: None. Objective- MSE: Alert and attentive. Orientation times three. Dressed and Groomed: Appropriately. Pleasant and cooperative. Psychomotor Activity: Normal. Speech: Normal in tone, quality, and quantity. Mood: Better not as bad as before Affect: Appropriate. SI or HI: None. Perceptual disturbance: None. Thought Content: No paranoia or other delusional thinking noted. Thought Process: Normal. Cognition: Intact Judgment and Insight: Good AIMS: Normal. Labs: No new labs. Diagnosis: No change Plan and Recommendations: Continue current Medications. Monitor MS and side effects of medications and adjust medications accordingly. Provide supportive psychotherapy. The patient provided psychoeducation and advised The patient provided Substance abuse counseling. Smoke cessation therapy. The patient to attend delatorre activities. Medication Consent with explanation of risk/benefits and side effects: Explained and obtained.
[2023-08-14 07:13] VITALS: TEMP 97.7
[2023-08-14 09:51] VITALS: BP 133/89; PULSE 67
--- NOTE | 2023-08-14 14:12 | P.DS ---
Providers Date of admission: 08/08/23 12:46 Expected date of discharge: 08/14/23 Attending physician: Jin Wang MD Consults: 08/08/23 12:55 Consult Physician Routine Consulting Provider: Zeyad Martini Consult Reason/Comments: H&P, Review medical medicatitons for CP Do you want consulting provider notified?: Yes Primary care physician: Stated None - Discharge Diagnosis(es) (1) Adjustment disorder with mixed emotional features Current Visit: Yes Status: Acute Priority: High (2) Alcohol dependence Current Visit: Yes Status: Acute Priority: High Hospital Course: Discharge Summary HPI: Identifying Data: Mr. Flowers is 58 years old, single, white male, who lives in [place], [place] in an apartment. Chief Complaint: Depression History of Psychiatric Illness- The patient came to the ER after drinking, feeling depressed and to get detoxed. He also requested to get a letter to help him get a bigger apartment. detoxed. He stated that he was last admitted for similar reasons. He stated that when he is caged in a small room then he starts drinking. He requested for Ativan or klonopin for his anxiety. He stated that his living situation is bad. The patient noted that he has PTSD. He feels Claustrophobic in that apartment. He reports anxiety, irritability, frustration, nausea, and no desire to be in a small place. He gets Claustrophobic. The patient is under [facility] 5-10 years ago. The patient noted that no medications worked. The patient noted that only thing works is alcohol, or Benzodiazepines. The patient refused to take any anti depressant medication stating that those medications do not work. He agreed to take Buspar and Hydroxyzine for his anxiety. Past Psychiatric History: The patient indicated that he went to [facility] 5-10 years. He was in treatment for 2 years. He reports that he was diagnosed with PTSD. He was not given any medications for PTSD. The patient noted that he went to half-way, which resulted in to PTSD. The patient denied any past psychiatrist admissions. He denied any h/o suicidal or homicidal ideations or behavior. Past Medication History: The patient could not name the medications but stated that none of the antidepressants worked. He noted that Librium and Klonopin helped a little. Leading questions: The patient admitted Anxiety. Denied SI or HI. Denied symptoms consistent with psychosis Drugs and alcohol history: The patient noted that his drug of choice is Alcohol. He has been drinking since age 16. He started heavy use in his thirties. He has tried other drugs but never used them regularly. He denied use of Marijuana. Tobacco use: Vapes occasionally. Past Medical history: Ref to EMR Hospital course: After admission, the patient was involved in pharmacotherapy, delatorre milieu, and individual psychodynamic psychotherapy. The patient was started Buspar and Hydroxyzine. . The dose was titrated to obtain the desire effects. The patient tolerated medications well without any side effects. The patient was also involved in delatorre activities. The patient attended the groups and participated well. The patient interacted with peers and staff well. The patient slowly started showing improvement. The hospital course was uneventful. The patient symptoms of depression, suicidal and homicidal ideations abated. The patient was stable to be discharged to out-patient care. The patient did not have any guns or weapons in possession at home. MSE: Alert and attentive. Orientation times three Dressed and Groomed: Appropriately. Pleasant and cooperative. Psychomotor Activity: Normal. Speech: Normal in tone, quality, and quantity. Mood: Anxious. Affect: Appropriate. SI or HI: None. Perceptual disturbance: None. Thought Content: No paranoia or other delusional thinking noted. Thought Process: Normal. Cognition: Intact Judgment and Insight: Poor. AIMS: Normal Labs: Available labs reviewed. Diagnosis: Adjustment disorder with mixed emotional disturbance. H/O PTSD Alcohol Dependence Plan: The patient to be discharged today. The patient has attained good improvement since admission. He is stable to be followed as an outpatient. The patient is not suicidal or Homicidal. He does not pose any harm to self or others. The patient remains at a greater risk of self-harm or harm to others than general population on a chronic basis due to psychiatric illness and substance abuse. The patient will continue taking following medication post discharge. The importance of medication compliance and maintaining regular appointments at psychiatric out-pt and PCP clinic was explained and encouraged. The patient was also advised to seek alcohol counseling and attend AA/NA meetings. The understood and agreed with the recommendations. highway worker to arrange for and conduct family meeting to ensure safety upon discharge and answer any questions. The manager social work to arrange for patients follow-up appointments at [facility] for psychiatric care along with follow-up with PCP. The patient provided psychoeducation. Advised to call 911 or go to nearest ED or call this hospital in case of acute worsening of symptomatology, severe side effects or having suicidal, homicidal thoughts and feeling unsafe at home. Plan - Discharge Summary Discharge Rx Participant: No New Discharge Prescriptions: New hydrOXYzine HCL [Atarax] 25 mg PO TID PRN 15 Days #45 tab PRN Reason: Anxiety Acamprosate Calcium [Campral] 333 mg PO TID 15 Days #45 tab Nicotine 21Mg/24Hr Patch [Habitrol] 1 patch TRANSDERM DAILY 15 Days #15 patch Chlorthalidone [Hygroton] 25 mg PO DAILY 7 Days #21 tab busPIRone HCl [Buspar] 10 mg PO BID 15 Days #30 tab Multivitamins, Thera [Multivitamin (formulary)] 1 each PO DAILY tab Continue Clopidogrel [Plavix] 75 mg PO DAILY #30 tab Rosuvastatin Calcium 5 mg PO DAILY lisinopriL [Zestril] 10 mg PO DAILY oxyCODONE-APAP 10-325MG [Percocet 10-325 mg] 1 tab PO BID PRN PRN Reason: Pain traZODone HCL [Desyrel] 100 mg PO HS PRN PRN Reason: Insomnia Isosorbide Mononitrate ER [Imdur] 30 mg PO DAILY #30 tab Omeprazole [PriLOSEC] 20 mg PO AC-BID 30 Days #60 cap Folic Acid 1 mg PO DAILY #100 tab Metoprolol Tartrate [Lopressor] 25 mg PO BID cloNIDine HCL [Catapres] 0.1 mg PO DAILY Thiamine [Vitamin B-1] 100 mg PO BID #100 tab Ketoconazole 2% Cream [Nizoral 2%] 1 applic TOPICAL BID Discontinued Ondansetron [Zofran] 4 mg PO TID PRN PRN Reason: Nausea And Vomiting Discharge Medication List Clopidogrel [Plavix] 75 mg PO DAILY #30 tab 05/22/21 [Rx] Metoprolol Tartrate [Lopressor] 25 mg PO BID 10/29/21 [History] Rosuvastatin Calcium 5 mg PO DAILY 10/07/22 [History] lisinopriL [Zestril] 10 mg PO DAILY 12/30/22 [History] cloNIDine HCL [Catapres] 0.1 mg PO DAILY 06/22/23 [History] oxyCODONE-APAP 10-325MG [Percocet 10-325 mg] 1 tab PO BID PRN 06/22/23 [History] traZODone HCL [Desyrel] 100 mg PO HS PRN 06/22/23 [History] Isosorbide Mononitrate ER [Imdur] 30 mg PO DAILY #30 tab 06/26/23 [Rx] Omeprazole [PriLOSEC] 20 mg PO AC-BID 30 Days #60 cap 07/15/23 [Rx] Folic Acid 1 mg PO DAILY #100 tab 07/20/23 [Rx] Thiamine [Vitamin B-1] 100 mg PO BID #100 tab 07/20/23 [Rx] Ketoconazole 2% Cream [Nizoral 2%] 1 applic TOPICAL BID 08/08/23 [History] Acamprosate Calcium [Campral] 333 mg PO TID 15 Days #45 tab 08/14/23 [Rx] Chlorthalidone [Hygroton] 25 mg PO DAILY 7 Days #21 tab 08/14/23 [Rx] Multivitamins, Thera [Multivitamin (formulary)] 1 each PO DAILY tab 08/14/23 [Rx] Nicotine 21Mg/24Hr Patch [Habitrol] 1 patch TRANSDERM DAILY 15 Days #15 patch 08/14/23 [Rx] busPIRone HCl [Buspar] 10 mg PO BID 15 Days #30 tab 08/14/23 [Rx] hydrOXYzine HCL [Atarax] 25 mg PO TID PRN 15 Days #45 tab 08/14/23 [Rx] Follow up Appointment(s)/Referral(s): [facility] [Outside] - 08/15/23 11:30 am [facility] [NON-STAFF] - 1 Week Patient Instructions/Handouts: Stress (DC), Alcohol Intoxication (DC) Activity/Diet/Wound Care/Special Instructions: Avoid the use of street drugs and alcohol. Take all medications as prescribed. When you are in need of refills on your medications, please contact your medical provider and/or outpatient psychiatrist/provider to have this done. Please go to your scheduled outpatient appointment for aftercare treatment. If symptoms return or become worse, call the crisis line at and/or go to the nearest emergency room for evaluation. National Suicide Hotline 988 Discharge/Stand Alone Forms: AA Meetings [address] - [facility], AA Meetings [place] Discharge Disposition: HOME SELF-CARE
== END 2023-08-14 14:25 | disposition home or self-care (01) | DRG 755 ==
LOC: EC 23:16 → 3MHU 08-08 12:46
PROVIDERS: ADMIT Psychiatry & Neurology Psychiatry; ATTEND Psychiatry & Neurology Psychiatry
DX: F43.25 Adjustment disorder with mixed disturbance of emotions and conduct (principal); R18.8 Other ascites; R45.851 Suicidal ideations; K74.60 Unspecified cirrhosis of liver; F10.229 Alcohol dependence with intoxication, unspecified; J44.9 Chronic obstructive pulmonary disease, unspecified; I48.91 Unspecified atrial fibrillation; I10 Essential (primary) hypertension; Z11.52 Encounter for screening for COVID-19; Z28.311 Partially vaccinated for COVID-19; F43.10 Post-traumatic stress disorder, unspecified; E78.5 Hyperlipidemia, unspecified; M19.90 Unspecified osteoarthritis, unspecified site; F40.240 Claustrophobia; G89.29 Other chronic pain; R07.9 Chest pain, unspecified; M54.50 Low back pain, unspecified; M25.562 Pain in left knee; I25.10 Atherosclerotic heart disease of native coronary artery without angina pectoris; F17.290 Nicotine dependence, other tobacco product, uncomplicated; Z79.02 Long term (current) use of antithrombotics/antiplatelets; Z79.899 Other long term (current) drug therapy; Z71.6 Tobacco abuse counseling; Z95.1 Presence of aortocoronary bypass graft; Z71.41 Alcohol abuse counseling and surveillance of alcoholic
CPT/HCPCS: 36415; 80053; 80143; 80179; 80306; 80320; 82075; 83036; 83690; 83735; 84100; 84443; 85025; 87635; 93005; 96360; 99285

== ENCOUNTER 2023-08-28 03:25 | Emergency (ER) | payer OTHER ==
[2023-08-28 03:37] VITALS: BP 144/80; PULSE 91; RESP 20; TEMP 97.9
[2023-08-28] MEDS ORDERED: NITROGLYCERIN SL TABS 0.4 MG TAB SUBLINGUAL STA (03:42)
[2023-08-28 04:12] LABS: Basophils % (A) 1 %; Eosinophils # (A) 0.1 k/uL (0-0.7); Eosinophils % (A) 2 %; HGB 13.2 gm/dL (13.0-17.5); Lymphocytes # (A) 2.3 k/uL (1.0-4.8); Lymphocytes % (A) 34 %; MCH 31.2 pg (25.0-35.0); MCV 94.4 fL (80.0-100.0); Mean Platelet Volume 8.1; Monocytes # (A) 0.4 k/uL (0-1.0); Monocytes % (A) 6 %; Neutrophils # (A) 3.9 k/uL (1.3-7.7); Neutrophils % (A) 57 %; Platelet Count 240 k/uL (150-450); RBC 4.23 m/uL (4.30-5.90); RDW 13.6 % (11.5-15.5); WBC 6.8 k/uL (3.8-10.6)
[2023-08-28 04:57] LABS: INR 0.9 (<1.2); Partial Thromboplastin Time 20.6 sec (22.0-30.0); Prothrombin Time 10.4 sec (10.0-12.5)
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
== END 2023-08-28 06:33 | disposition left against medical advice (07) ==
LOC: EC 03:25
DX: R07.89 Other chest pain (principal); F17.200 Nicotine dependence, unspecified, uncomplicated; Z53.29 Procedure and treatment not carried out because of patient's decision for other reasons
CPT/HCPCS: 36415; 85025; 85610; 85730; 93005; 99285

== ENCOUNTER → 2023-09-06 | Outpatient (CLI) | payer OTHER ==
--- NOTE | 2023-09-07 09:07 | CT ---
EXAMINATION TYPE: CT abdomen wo/w con DATE OF EXAM: 09/06/2023 COMPARISON: 03/02/2023 HISTORY: renal cysts CT DLP: 1791 mGycm CONTRAST: CT scan of the abdomen is performed with Oral Contrast and without and with IV Contrast, patient inje cted with 100 mL of Isovue 300. FINDINGS: LUNG BASES-: No visible nodule. No infiltrate. LIVER/GB: No calcified gallstones. No space occupying hepatic lesion. Biliary tree is of normal ca liber. PANCREAS: No inflammation. No distinct mass. SPLEEN: No splenic enlargement. No lesion seen. ADRENALS: No nodule. No thickening. KIDNEYS/BLADDER: No hydronephrosis. No nephrolithiasis. Noted are 2 simple cyst lower pole right ki dney one anteriorly measuring 2.2 cm and the second posterior medial cortex measuring 1.6 cm. Urinary bladder grossly unremarkable. BOWEL: Visualized bowel loops are of normal caliber. LYMPH NODES: No greater than 1cm abdominal or pelvic lymph nodes are appreciated. AORTA: No significant abnormality. OSSEOUS STRUCTURES: No significant abnormality is seen. OTHER: No significant additional abnormality is seen. IMPRESSION: 1. Simple cysts right kidney.
== END | disposition home or self-care (01) ==
LOC: RADCTMAIN 17:56
PROVIDERS: ATTEND Family Medicine
DX: N28.1 Cyst of kidney, acquired (principal); I87.1 Compression of vein
CPT/HCPCS: 74170; Q9967

== ENCOUNTER 2023-10-18 00:05 | Emergency (ER) | payer OTHER ==
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
[2023-10-18 01:53] LABS: Basophils % (A) 1 %; Eosinophils # (A) 0.2 k/uL (0-0.7); Eosinophils % (A) 3 %; HCT 36.4 % (39.0-53.0); HGB 12.7 gm/dL (13.0-17.5); Lymphocytes # (A) 1.8 k/uL (1.0-4.8); Lymphocytes % (A) 35 %; MCH 32.9 pg (25.0-35.0); MCV 93.9 fL (80.0-100.0); Mean Platelet Volume 7.4; Monocytes # (A) 0.2 k/uL (0-1.0); Monocytes % (A) 5 %; Neutrophils # (A) 2.9 k/uL (1.3-7.7); Neutrophils % (A) 55 %; Platelet Count 280 k/uL (150-450); RBC 3.87 m/uL (4.30-5.90); RDW 13.6 % (11.5-15.5); WBC 5.3 k/uL (3.8-10.6)
[2023-10-18] MEDS: MORPHINE SULFATE 4 MG/ML SYRINGE IV STA (01:59)
[2023-10-18] MEDS: ONDANSETRON 4 MG/2 ML VIAL IVP STA (01:59)
[2023-10-18] MEDS: LORazepam 2 MG/ML INJ IV STA (01:59)
[2023-10-18] MEDS: SODIUM CHLORIDE 0.9% 1,000 ML IV STA (02:00)
[2023-10-18 02:02] LABS: Partial Thromboplastin Time 22.5 sec (22.0-30.0); Prothrombin Time 10.8 sec (10.0-12.5)
[2023-10-18 02:27] LABS: ALT 52 U/L (4-49); AST 92 U/L (17-59); African American GFR (CKD) 38 (>60 ml/min/1.73 sqM); Albumin 4.7 g/dL (3.5-5.0); Alkaline Phosphatase 40 U/L (38-126); Anion Gap 15 mmol/L; Blood Urea Nitrogen 25 mg/dL (9-20); Calcium 9.9 mg/dL (8.4-10.2); Carbon Dioxide 22 mmol/L (22-30); Chloride 100 mmol/L (98-107); Glucose 100 mg/dL (74-99); Lipase 118 U/L (23-300); Magnesium 1.5 mg/dL (1.6-2.3); Non-African American GFR(CKD) 33 (>60 ml/min/1.73 sqM); Phosphorus 4.4 mg/dL (2.5-4.5); Potassium 3.5 mmol/L (3.5-5.1); Sodium 137 mmol/L (137-145); Total Bilirubin 0.7 mg/dL (0.2-1.3)
[2023-10-18 02:34] LABS: NT-Pro-B-Type Natriuretic Pept 99 pg/mL
[2023-10-18 02:38] LABS: Alcohol 123 mg/dL
--- NOTE | 2023-10-18 02:49 | XR ---
EXAM: XR Chest, 1 View CLINICAL HISTORY: ITS.REASON XR Reason: cp TECHNIQUE: Frontal view of the chest. COMPARISON: No relevant prior studies available. FINDINGS: Lungs: No consolidation or mass. Pleural space: No acute findings. Heart: cardiomegaly. Bones/joints: No acute findings. IMPRESSION: No acute cardiopulmonary process.
[2023-10-18] MEDS: MORPHINE SULFATE 4 MG/ML SYRINGE IVP STA (05:55)
[2023-10-18 05:58] VITALS: BP 163/94; PULSE 75; RESP 16; TEMP 98.3
== END 2023-10-18 06:00 | disposition home or self-care (01) ==
LOC: EC 00:05
CPT/HCPCS: 36415; 71045; 80053; 80320; 83690; 83735; 83880; 84100; 84484; 85025; 85610; 85730; 93005; 96361; 96374; 96375; 96376; 99285

== ENCOUNTER 2023-10-23 20:39 | Observation (INO) | payer OTHER ==
[2023-10-23] MEDS ORDERED: NALOXONE 0.4 MG/ML 1 ML VIAL IV PRN (21:21)
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
[2023-10-23 22:06] LABS: Basophils % (A) 0 %; Eosinophils # (A) 0.1 k/uL (0-0.7); Eosinophils % (A) 2 %; HGB 12.9 gm/dL (13.0-17.5); Lymphocytes # (A) 1.3 k/uL (1.0-4.8); Lymphocytes % (A) 17 %; MCH 31.7 pg (25.0-35.0); MCV 96.2 fL (80.0-100.0); Mean Platelet Volume 7.7; Monocytes # (A) 0.3 k/uL (0-1.0); Monocytes % (A) 5 %; Neutrophils # (A) 5.7 k/uL (1.3-7.7); Neutrophils % (A) 75 %; Platelet Count 247 k/uL (150-450); RBC 4.06 m/uL (4.30-5.90); RDW 13.5 % (11.5-15.5); WBC 7.6 k/uL (3.8-10.6)
[2023-10-23] MEDS: MORPHINE SULFATE 4 MG/ML SYRINGE IV STA (22:10)
[2023-10-23] MEDS: ONDANSETRON 4 MG/2 ML VIAL IVP STA (22:10)
[2023-10-23] MEDS: SODIUM CHLORIDE 0.9% 1,000 ML IV STA (22:10)
[2023-10-23 22:24] LABS: ALT 50 U/L (4-49); AST 75 U/L (17-59); African American GFR (CKD) 50 (>60 ml/min/1.73 sqM); Alkaline Phosphatase 32 U/L (38-126); Anion Gap 14 mmol/L; Blood Urea Nitrogen 13 mg/dL (9-20); Calcium 10.1 mg/dL (8.4-10.2); Carbon Dioxide 23 mmol/L (22-30); Chloride 101 mmol/L (98-107); Glucose 107 mg/dL (74-99); Magnesium 1.1 mg/dL (1.6-2.3); Non-African American GFR(CKD) 43 (>60 ml/min/1.73 sqM); Phosphorus 3.6 mg/dL (2.5-4.5); Potassium 3.7 mmol/L (3.5-5.1); Sodium 138 mmol/L (137-145); Total Bilirubin 0.7 mg/dL (0.2-1.3); Total Protein 7.3 g/dL (6.3-8.2)
[2023-10-23 22:37] LABS: Partial Thromboplastin Time 22.7 sec (22.0-30.0); Prothrombin Time 10.7 sec (10.0-12.5)
[2023-10-24] MEDS: MORPHINE SULFATE 4 MG/ML SYRINGE IV PRN (01:00)
[2023-10-24 06:17] LABS: Basophils % (A) 1 %; Eosinophils # (A) 0.2 k/uL (0-0.7); Eosinophils % (A) 3 %; HCT 37.2 % (39.0-53.0); HGB 12.5 gm/dL (13.0-17.5); Lymphocytes # (A) 1.7 k/uL (1.0-4.8); Lymphocytes % (A) 29 %; MCH 32.5 pg (25.0-35.0); MCHC 33.5 g/dL (31.0-37.0); MCV 96.9 fL (80.0-100.0); Monocytes # (A) 0.3 k/uL (0-1.0); Monocytes % (A) 5 %; Neutrophils # (A) 3.6 k/uL (1.3-7.7); Neutrophils % (A) 61 %; Platelet Count 246 k/uL (150-450); RBC 3.83 m/uL (4.30-5.90); RDW 13.5 % (11.5-15.5); WBC 5.9 k/uL (3.8-10.6)
[2023-10-24 06:39] LABS: ALT 49 U/L (4-49); AST 66 U/L (17-59); African American GFR (CKD) 53 (>60 ml/min/1.73 sqM); Albumin 4.5 g/dL (3.5-5.0); Alkaline Phosphatase 33 U/L (38-126); Anion Gap 9 mmol/L; Blood Urea Nitrogen 11 mg/dL (9-20); Calcium 9.5 mg/dL (8.4-10.2); Carbon Dioxide 28 mmol/L (22-30); Chloride 102 mmol/L (98-107); Glucose 91 mg/dL (74-99); Magnesium 1.1 mg/dL (1.6-2.3); Non-African American GFR(CKD) 46 (>60 ml/min/1.73 sqM); Phosphorus 4.4 mg/dL (2.5-4.5); Potassium 3.8 mmol/L (3.5-5.1); Sodium 139 mmol/L (137-145); Total Bilirubin 0.5 mg/dL (0.2-1.3); Total Protein 6.5 g/dL (6.3-8.2)
[2023-10-24] MEDS: ONDANSETRON 4 MG/2 ML VIAL IVP PRN (07:05)
[2023-10-24] MEDS: SODIUM CHLORIDE 0.9% 1,000 ML IV SCH (07:52)
[2023-10-24] MEDS: PANTOPRAZOLE 40 MG/10 ML VIAL IV SCH (09:41)
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
[2023-10-24] MEDS ORDERED: traZODone HCL 100 MG TAB PO PRN (17:29)
[2023-10-24] MEDS: oxyCODONE-APAP 10-325MG 1 EACH TAB PO PRN (17:49)
[2023-10-24] MEDS: FAMOTIDINE 20 MG TAB PO SCH (20:38)
[2023-10-24] MEDS: METOPROLOL TARTRATE 25 MG TAB PO SCH (20:38)
[2023-10-24] MEDS: THIAMINE 100 MG TAB PO SCH (20:38)
[2023-10-25 01:07] VITALS: RESP 16
[2023-10-25] MEDS: PANTOPRAZOLE 40 MG TABLET PO SCH (06:07)
[2023-10-25] MEDS: CHLORTHALIDONE 25 MG TAB PO SCH (07:59)
[2023-10-25] MEDS: ASPIRIN 81 MG PO SCH (07:59)
[2023-10-25] MEDS: lisinopriL 10 MG TAB PO SCH (07:59)
[2023-10-25] MEDS: ISOSORBIDE MONONITRATE ER 30 MG TAB.ER.24H PO SCH (07:59)
[2023-10-25] MEDS: CLOPIDOGREL 75 MG TAB PO SCH (07:59)
[2023-10-25] MEDS: FOLIC ACID 1 MG TAB PO SCH (07:59)
[2023-10-25] MEDS: ATORVASTATIN 10 MG TAB PO SCH (07:59)
--- NOTE | 2023-10-25 09:29 | P.PN ---
Subjective HISTORY OF PRESENT ILLNESS: This is a 58-year-old male with a past medical history significant for coronary artery disease with previous CABG, hypertension, hyperlipidemia, alcohol abuse, nicotine dependence. Patient follows in the office with Dr. Savage. We have been asked to see the patient in consultation for chest pain. Patient examined at the bedside. Patient presented to the hospital with a chief complaint of shortness of breath and chest discomfort. Patient states the pain was in the middle of his chest. He also reports having shortness of breath over the past couple days. DIAGNOSTICS: - EKG reveals sinus mechanism with no signs of acute ischemia - Laboratory data: WBC 5.9. Hemoglobin 12.5. Platelet count 246. Sodium 139. Potassium 3.8. BUN 11. Creatinine 1.64. Magnesium 1.1. Troponin negative x 3. - Current home cardiac medications list has not been updated at the time of examination - Most recent echocardiogram obtained in September 2022 revealed ejection fraction 55 to 60% - Dobutamine stress echo performed in February 2023 was negative for ischemia 10/25/2023 Patient examined this month bedside by Dr. Branch. Patient denies any chest pain or pressure. Denies shortness of breath. Vital signs are stable. PHYSICAL EXAM: VITAL SIGNS: Reviewed. GENERAL: Well-developed in no acute distress. HEENT: Head is normocephalic. Pupils are equal, round. Sclerae anicteric. Mucous membranes of the mouth are moist. Neck supple. No JVD or thyromegaly LUNGS: Respirations even and unlabored. Lungs essentially clear to auscultation bilaterally. HEART: Regular rate and rhythm. S1 and S2 heard. ABDOMEN: Soft. Nondistended. Nontender. EXTREMITIES: Normal range of motion. No clubbing or cyanosis. Peripheral pulses intact. No lower extremity edema NEUROLOGIC: Awake and alert. Oriented x 3. ASSESSMENT: Chest pain, troponin negative x 3 Coronary artery disease with CABG x 4 vessel in 2021, AZUL to LAD and diagonal, radial artery graft to OM, SVG to PDA Hypertension Hyperlipidemia Chronic chest pain History of alcohol abuse Nicotine dependence History of medication noncompliance PLAN: continue current cardiac medications No further inpatient recommendations from a cardiac standpoint Patient may be discharged home this afternoon from a cardiac standpoint and follow-up in the office with Dr. Savage We will sign off. Please reconsult if needed. Nurse practitioner note has been reviewed by physician. Signing provider agrees with the documented findings, assessment, and plan of care documented by CONCRETE CONVEYOR OPERATOR as a scribe. Objective - Vital Signs Vital signs: Vital Signs Temp 97.6 F 10/25/23 07:00 Pulse 61 10/25/23 07:00 Resp 16 10/25/23 08:00 BP 147/93 10/25/23 07:00 Pulse Ox 98 10/25/23 07:00 FiO2 Intake & Output 10/24/23 10/25/23 10/25/23 18:59 06:59 18:59 Intake Total 960 Balance 960 Weight 96.615 kg Intake: Oral 960 Other: Voiding Method Toilet Toilet Toilet # Voids 3 - Labs CBC & Chem 7: 10/24/23 05:23 10/24/23 05:23
--- NOTE | 2023-10-25 09:46 | CA ---
Transthoracic Echo Report Name: Valdemar Flowers Age: 58 Gender: M : 1965 Exam Date: 10/24/2023 15:49 Exam Location: [facility] Ht (in): 68 Wt (lb): 213 Ordering Physician: Lc Branch MD ([id number]) Attending/Referring Phys: Sarina MULLINS Book Shelver Genesis Muhammad RDCS Procedure CPT: Indications: Chest Pain Cardiac Hx: Hx of CABG Technical Quality: Fair Contrast 1: Total Dose (mL): Contrast 2: Total Dose (mL): MEASUREMENTS (Male / Female) Normal Values 2D ECHO LV Diastolic Diameter PLAX 4.7 cm 4.2 - 5.9 / 3.9 - 5.3 cm LV Systolic Diameter PLAX 3.1 cm IVS Diastolic Thickness 1.4 cm 0.6 - 1.0 / 0.6 - 0.9 cm LVPW Diastolic Thickness 1.4 cm 0.6 - 1.0 / 0.6 - 0.9 cm LV Relative Wall Thickness 0.6 RV Internal Dim ED PLAX 3.2 cm LA Systolic Diameter LX 4.2 cm 3.0 - 4.0 / 2.7 - 3.8 cm LV Diastolic Volume MOD 4C 115.0 cm??? LV Systolic Volume MOD 4C 39.5 cm??? LV Ejection Fraction MOD 4C 65.7 % LV Cardiac Index MOD 4C 2212.4 cm???/min???m??? LV Diastolic Length 4C 9.3 cm LV Systolic Length 4C 7.8 cm LV Diastolic Volume MOD 2C 139.1 cm??? LV Systolic Volume MOD 2C 46.1 cm??? LV Ejection Fraction MOD 2C 66.8 % LV Cardiac Index MOD 2C 2723.1 cm???/min???m??? LV Diastolic Length 2C 8.2 cm LV Systolic Length 2C 6.5 cm LA Volume 45.8 cm??? 18 - 58 / 22 - 52 cm??? LA Volume Index 20.9 cm???/m??? 16 - 28 cm???/m??? M-MODE Aortic Root Diameter MM 3.7 cm DOPPLER AV Peak Velocity 145.6 cm/s AV Peak Gradient 8.5 mmHg MV Area PHT 3.7 cm??? Mitral E Point Velocity 74.7 cm/s Mitral A Point Velocity 59.6 cm/s Mitral E to A Ratio 1.3 MV Deceleration Time 206.4 ms TR Peak Velocity 252.6 cm/s TR Peak Gradient 25.5 mmHg Right Ventricular Systolic Press 29.6 mmHg FINDINGS Left Ventricle Left ventricular ejection fraction is estimated at 55-60 %. Left ventricular cavity size normal. Moderate concentric left ventricular hypertrophy. No obvious regional wall motion abnormalities. Right Ventricle Normal right ventricular size and function. Right ventricular systolic pressure within normal limits. Right Atrium Normal right atrial size. No right atrial thrombus or mass seen. Left Atrium Mildly increased left atrial diameter. No left atrial thrombus or mass present. Mitral Valve Structurally normal mitral valve. No mitral stenosis, regurgitation or prolapse. Aortic Valve Trileaflet aortic valve. No aortic valve stenosis or regurgitation. Tricuspid Valve Structurally normal tricuspid valve. Mild tricuspid regurgitation. Pulmonic Valve Structurally normal pulmonic valve. Trace pulmonic regurgitation. Pericardium No pericardial or pleural effusion. Aorta Normal size aortic root and proximal ascending aorta. CONCLUSIONS normal lv function Previewed by: Dr. Lc Branch MD (Electronically Signed) Final Date: 25 October 2023 09:45
[2023-10-25 14:14] VITALS: BMI 32.3
[2023-10-25 15:40] VITALS: BP 128/65; PULSE 73; TEMP 98.4
--- NOTE | 2023-10-27 00:28 | DS ---
DISCHARGE SUMMARY CHIEF COMPLAINT: Chest pain. HISTORY OF PRESENT ILLNESS AND PHYSICAL EXAMINATION: Details of this man's history and physical can be found in the initial workup. LABORATORY STUDIES: While he is in the hospital, he had laboratory studies, details of which can be found in the laboratory section of his chart. COURSE IN THE HOSPITAL: After admission, he was placed on bedrest and started on intravenous fluids. He had serial EKGs and enzymes. He is doing well and felt he could be discharged to outpatient followup on the . He will go home on his usual activity, diet, and medications and manage not to drink, which he has not been doing for the last several months giving him credit. FINAL DIAGNOSES: 1. Chest pain. 2. Coronary artery disease. 3. Chronic alcoholism. OPERATIONS: None. CONSULTATIONS: None. He is improved. MMODL / ANTONELLAN: [id number] /
--- NOTE | 2023-10-27 00:30 | HP ---
HISTORY AND PHYSICAL CHIEF COMPLAINT: Chest pain. HISTORY OF PRESENT ILLNESS: This is another recent admission for this 58-year-old white male, chronic alcoholic, who has coronary artery disease. He intermittently develops chest pain, comes to the emergency room. He came this time complaining of chest pain, but the EKG was unchanged. Cardiac enzymes have been normal. REVIEW OF SYSTEMS: He has had no diaphoresis, fever and chills, cough, orthopnea, PND, abdominal pain, etc. Past medical history, family history, and personal and social histories are all otherwise unchanged from his many recent admitting and discharge summaries. PHYSICAL EXAMINATION: VITAL SIGNS: Normal. HEAD, EARS, EYES, NOSE, MOUTH AND THROAT: Normal. CHEST: Clear. CARDIAC: Demonstrates sinus rhythm. He had a midline sternotomy scar. ABDOMEN: Slightly protuberant, soft and nontender. EXTREMITIES: Normal. NEUROLOGICAL: He is intact. ASSESSMENT: He is admitted to the hospital with diagnoses of, 1. Chest pain. 2. Extensive history of coronary artery disease. 3. Status post coronary artery bypass graft. 4. Chronic alcoholism. 5. Depression. PLAN: 1. Bed rest. 2. IV fluids. 3. Serial EKGs and enzymes. MMODL / IJN: [id number] /
--- NOTE | 2023-10-27 01:42 | PN ---
PROGRESS NOTE DATE OF SERVICE: 10/24/2023 CHIEF COMPLAINT: Chest pain and coronary artery disease. HISTORY OF PRESENT ILLNESS: This gentleman has been stable and his EKGs and enzymes have been unchanged. He has had no diaphoresis. PHYSICAL EXAMINATION: VITAL SIGNS: Normal. CHEST: Clear. CARDIAC: Normal. IMPRESSION: 1. Chest pain. 2. Coronary artery disease. PLAN: Start to increase activity and monitor his chest pain. He will probably be able to go home tomorrow if nothing changes. MMODL / IJN: [id number] /
== END 2023-10-25 18:26 | disposition home or self-care (01) ==
LOC: EC 20:39 → 6NMEDSUR 21:23
PROVIDERS: ADMIT Family Medicine; ATTEND Family Medicine
DX: R07.89 Other chest pain (principal); I25.10 Atherosclerotic heart disease of native coronary artery without angina pectoris; I10 Essential (primary) hypertension; E78.5 Hyperlipidemia, unspecified; F10.229 Alcohol dependence with intoxication, unspecified; F32.A Depression, unspecified; G89.29 Other chronic pain; F17.200 Nicotine dependence, unspecified, uncomplicated; Z79.82 Long term (current) use of aspirin; Z79.02 Long term (current) use of antithrombotics/antiplatelets; Z79.899 Other long term (current) drug therapy; Z95.1 Presence of aortocoronary bypass graft
CPT/HCPCS: 80053; 83735; 84100; 84484; 85025; 85379; 85610; 85730; 93005; 93306; 96361; 96374; 96375; 96376; 99285

== ENCOUNTER 2023-11-14 01:05 | Emergency (ER) | payer OTHER ==
[2023-11-14 01:13] VITALS: BP 146/111; PULSE 68; RESP 18
[2023-11-14 01:14] VITALS: TEMP 98
[2023-11-14] MEDS: ASPIRIN 81 MG PO STA (01:32)
[2023-11-14] MEDS: NITROGLYCERIN SL TABS 0.4 MG TAB SUBLINGUAL STA (01:33)
[2023-11-14] MEDS: SODIUM CHLORIDE 0.9% 1,000 ML IV STA (01:34)
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
[2023-11-14 01:41] LABS: Basophils % (A) 0 %; Eosinophils # (A) 0.1 k/uL (0-0.7); Eosinophils % (A) 1 %; HCT 37.3 % (39.0-53.0); HGB 12.5 gm/dL (13.0-17.5); Lymphocytes # (A) 1.7 k/uL (1.0-4.8); Lymphocytes % (A) 26 %; MCH 31.9 pg (25.0-35.0); MCHC 33.6 g/dL (31.0-37.0); MCV 95.1 fL (80.0-100.0); Mean Platelet Volume 7.2; Monocytes # (A) 0.3 k/uL (0-1.0); Monocytes % (A) 5 %; Neutrophils % (A) 64 %; Platelet Count 253 k/uL (150-450); RBC 3.92 m/uL (4.30-5.90); RDW 13.2 % (11.5-15.5); WBC 6.3 k/uL (3.8-10.6)
[2023-11-14] MEDS ORDERED: MAGNESIUM SULFATE-D5W PMX 1 GM in DEXTROSE/WATER 1 100ML.BAG IVPB SCH (01:45)
[2023-11-14 01:54] LABS: ALT 39 U/L (4-49); AST 63 U/L (17-59); African American GFR (CKD) 61 (>60 ml/min/1.73 sqM); Albumin 4.6 g/dL (3.5-5.0); Alkaline Phosphatase 31 U/L (38-126); Amylase 64 U/L (30-110); Anion Gap 15 mmol/L; Blood Urea Nitrogen 14 mg/dL (9-20); Calcium 9.5 mg/dL (8.4-10.2); Carbon Dioxide 18 mmol/L (22-30); Chloride 103 mmol/L (98-107); Glucose 119 mg/dL (74-99); Lipase 310 U/L (23-300); Magnesium 1.4 mg/dL (1.6-2.3); Non-African American GFR(CKD) 53 (>60 ml/min/1.73 sqM); Potassium 3.1 mmol/L (3.5-5.1); Sodium 136 mmol/L (137-145); Total Bilirubin 0.5 mg/dL (0.2-1.3); Total Protein 6.7 g/dL (6.3-8.2)
[2023-11-14 02:03] LABS: Partial Thromboplastin Time 24.2 sec (22.0-30.0); Prothrombin Time 10.9 sec (10.0-12.5)
[2023-11-14] MEDS: ACETAMINOPHEN TAB 500 MG TAB PO STA (02:46)
[2023-11-14] MEDS ORDERED: POTASSIUM BICARBONATE/CIT AC 20 MEQ TABLET.EFF PO ONE (02:47)
--- NOTE | 2023-11-14 05:46 | XR ---
EXAM: XR Chest, 2 Views CLINICAL HISTORY: ITS.REASON XR Reason: Chest Pain TECHNIQUE: Frontal and lateral views of the chest. COMPARISON: Chest radiograph on 10/18/2023 FINDINGS: Hardware: None. Lungs/pleura: Normal. No focal consolidation. No pleural effusion or pneumothorax. Heart/mediastinum: Median sternotomy and CABG changes. Left atrial appendage clip. No cardiomegaly. Soft tissues: Unremarkable. Bones: No acute fracture. Upper abdomen: Normal. IMPRESSION: No acute disease identified.
== END 2023-11-14 03:47 | disposition left against medical advice (07) ==
LOC: EC 01:05
DX: G89.29 Other chronic pain (principal); F10.229 Alcohol dependence with intoxication, unspecified; R10.31 Right lower quadrant pain; R10.11 Right upper quadrant pain; E83.42 Hypomagnesemia; F17.200 Nicotine dependence, unspecified, uncomplicated; E11.10 Type 2 diabetes mellitus with ketoacidosis without coma; E78.5 Hyperlipidemia, unspecified; I10 Essential (primary) hypertension; I25.10 Atherosclerotic heart disease of native coronary artery without angina pectoris; I48.91 Unspecified atrial fibrillation; Z79.02 Long term (current) use of antithrombotics/antiplatelets; Z79.899 Other long term (current) drug therapy; Z90.49 Acquired absence of other specified parts of digestive tract; Z95.1 Presence of aortocoronary bypass graft; Z53.29 Procedure and treatment not carried out because of patient's decision for other reasons
CPT/HCPCS: 36415; 71046; 80053; 82075; 82150; 83690; 83735; 84484; 85025; 85379; 85610; 85730; 93005; 96360; 99285

== ENCOUNTER 2023-11-15 02:37 | Inpatient (IN) | payer MEDICAID, OTHER ==
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
[2023-11-15] MEDS: ACETAMINOPHEN TAB 500 MG TAB PO STA (03:24)
[2023-11-15] MEDS: ASPIRIN 81 MG PO STA (03:25)
[2023-11-15] MEDS: MAG HYDROX/AL HYDROX/SIMETH 30 ML, HYOSCYAMINE ELIXIR 10 ML, LIDOCAINE VISCOUS 2% 10 ML PO STA (03:26)
[2023-11-15] MEDS: SODIUM CHLORIDE 0.9% 1,000 ML IV STA (03:27)
[2023-11-15 03:33] LABS: Basophils % (A) 0 %; Eosinophils # (A) 0.1 k/uL (0-0.7); Eosinophils % (A) 1 %; HCT 38.4 % (39.0-53.0); HGB 13.3 gm/dL (13.0-17.5); Lymphocytes # (A) 2.1 k/uL (1.0-4.8); Lymphocytes % (A) 32 %; MCHC 34.5 g/dL (31.0-37.0); MCV 92.9 fL (80.0-100.0); Monocytes # (A) 0.3 k/uL (0-1.0); Monocytes % (A) 5 %; Neutrophils # (A) 3.8 k/uL (1.3-7.7); Neutrophils % (A) 59 %; Platelet Count 254 k/uL (150-450); RBC 4.14 m/uL (4.30-5.90); RDW 13.6 % (11.5-15.5); WBC 6.4 k/uL (3.8-10.6)
[2023-11-15 03:41] LABS: INR 0.9 (<1.2); Partial Thromboplastin Time 23.4 sec (22.0-30.0); Prothrombin Time 10.3 sec (10.0-12.5)
[2023-11-15 04:10] LABS: ALT 41 U/L (4-49); AST 62 U/L (17-59); African American GFR (CKD) 66 (>60 ml/min/1.73 sqM); Albumin 4.6 g/dL (3.5-5.0); Alkaline Phosphatase 35 U/L (38-126); Amylase 67 U/L (30-110); Anion Gap 11 mmol/L; Blood Urea Nitrogen 12 mg/dL (9-20); Calcium 9.5 mg/dL (8.4-10.2); Carbon Dioxide 22 mmol/L (22-30); Chloride 105 mmol/L (98-107); Glucose 124 mg/dL (74-99); Lipase 363 U/L (23-300); Non-African American GFR(CKD) 57 (>60 ml/min/1.73 sqM); Potassium 3.4 mmol/L (3.5-5.1); Sodium 138 mmol/L (137-145); Total Bilirubin 0.4 mg/dL (0.2-1.3); Total Protein 6.7 g/dL (6.3-8.2)
[2023-11-15] MEDS: ONDANSETRON 4 MG/2 ML VIAL IVP STA (04:12)
[2023-11-15] MEDS: POTASSIUM BICARBONATE/CIT AC 20 MEQ TABLET.EFF PO ONE (04:46)
[2023-11-15] MEDS: SODIUM CHLORIDE 0.9% 1,000 ML IV ONE (04:47)
[2023-11-15] MEDS: MAGNESIUM OXIDE 400 MG TAB PO STA (06:00)
[2023-11-15] MEDS: MAGNESIUM SULFATE-D5W PMX 1 GM in DEXTROSE/WATER 1 100ML.BAG IVPB SCH (06:01)
[2023-11-15] MEDS: PROCHLORPERAZINE INJ 10 MG/2 ML VIAL IVP STA (06:28)
[2023-11-15] MEDS: MORPHINE SULFATE 4 MG/ML SYRINGE IVP STA (06:29)
[2023-11-15] MEDS ORDERED: HALOPERIDOL LACTATE 5 MG/ML 1 ML VIAL IM PRN (12:53)
[2023-11-15] MEDS ORDERED: MAGNESIUM HYDROXIDE 2,400 MG/30 ML CUP PO PRN (12:53)
[2023-11-15] MEDS ORDERED: haloperidoL 5 MG TAB PO PRN (12:53)
[2023-11-15] MEDS ORDERED: MAG HYDROX/AL HYDROX/SIMETH 355 ML BOTTLE PO PRN (12:53)
[2023-11-15] MEDS ORDERED: traZODone HCL 100 MG TAB PO PRN (12:56)
[2023-11-15] MEDS ORDERED: ONDANSETRON ODT 4 MG TAB PO PRN (12:56)
[2023-11-15] MEDS ORDERED: FAMOTIDINE 20 MG TAB PO PRN (12:56)
[2023-11-15] MEDS: oxyCODONE-APAP 10-325MG 1 EACH TAB PO PRN (13:48)
[2023-11-15] MEDS: NICOTINE 14MG/24HR PATCH TRANSDERM SCH (13:51)
[2023-11-15] MEDS: CLOTRIMAZOLE 1% CREAM 30 GM TUBE TOPICAL SCH (21:16)
[2023-11-15] MEDS: THIAMINE 100 MG TAB PO SCH (21:20)
[2023-11-15] MEDS: METOPROLOL TARTRATE 25 MG TAB PO SCH (21:20)
[2023-11-15 23:05] LABS: Appearance,Urine Clear (Clear); Bilirubin,Urine Negative (Negative); Blood,Urine Negative (Negative); Color,Urine Colorless; Glucose,Urine (UA) Negative (Negative); Ketones,Urine Negative (Negative); Leukocyte Esterase,Urine Negative (Negative); Nitrite,Urine Negative (Negative); Protein,Urine Negative (Negative); Specific Gravity,Urine 1.008 (1.001-1.035); Urobilinogen,Urine <2.0 mg/dL (<2.0)
[2023-11-16 08:01] LABS: Basophils % (A) 0 %; Eosinophils # (A) 0.1 k/uL (0-0.7); Eosinophils % (A) 2 %; HCT 40.5 % (39.0-53.0); HGB 13.5 gm/dL (13.0-17.5); Lymphocytes # (A) 2.2 k/uL (1.0-4.8); Lymphocytes % (A) 33 %; MCH 32.1 pg (25.0-35.0); MCHC 33.4 g/dL (31.0-37.0); MCV 96.1 fL (80.0-100.0); Mean Platelet Volume 7.8; Monocytes # (A) 0.4 k/uL (0-1.0); Monocytes % (A) 6 %; Neutrophils # (A) 3.9 k/uL (1.3-7.7); Neutrophils % (A) 58 %; Platelet Count 227 k/uL (150-450); RBC 4.21 m/uL (4.30-5.90); RDW 13.9 % (11.5-15.5); WBC 6.7 k/uL (3.8-10.6)
[2023-11-16 08:13] LABS: ALT 34 U/L (4-49); AST 43 U/L (17-59); African American GFR (CKD) 61 (>60 ml/min/1.73 sqM); Albumin 4.3 g/dL (3.5-5.0); Alkaline Phosphatase 30 U/L (38-126); Anion Gap 8 mmol/L; Bilirubin, Delta 0.2 mg/dL (0.0-0.2); Bilirubin,Unconjugated 0.4 mg/dL (0.0-1.1); Blood Urea Nitrogen 11 mg/dL (9-20); Carbon Dioxide 28 mmol/L (22-30); Chloride 103 mmol/L (98-107); Glucose 92 mg/dL (74-99); Non-African American GFR(CKD) 53 (>60 ml/min/1.73 sqM); Potassium 4.2 mmol/L (3.5-5.1); Sodium 139 mmol/L (137-145); Total Bilirubin 0.6 mg/dL (0.2-1.3); Total Protein 6.5 g/dL (6.3-8.2)
[2023-11-16] MEDS ORDERED: NICOTINE 14MG/24HR PATCH TRANSDERM SCH (09:00)
[2023-11-16] MEDS: ASPIRIN 81 MG PO SCH (12:04)
[2023-11-16] MEDS: ATORVASTATIN 10 MG TAB PO SCH (12:04)
[2023-11-16] MEDS: MULTIVITAMINS, THERA 1 EACH TAB PO SCH (12:04)
[2023-11-16] MEDS: lisinopriL 10 MG TAB PO SCH (12:04)
[2023-11-16] MEDS: PANTOPRAZOLE 40 MG TABLET PO SCH (12:04)
[2023-11-16] MEDS: CHLORTHALIDONE 25 MG TAB PO SCH (12:05)
[2023-11-16] MEDS: CLOPIDOGREL 75 MG TAB PO SCH (12:05)
[2023-11-16] MEDS: FOLIC ACID 1 MG TAB PO SCH (12:05)
[2023-11-16] MEDS: ISOSORBIDE MONONITRATE ER 30 MG TAB.ER.24H PO SCH (12:05)
[2023-11-16] MEDS: IBUPROFEN 600 MG TAB PO PRN (12:09)
--- NOTE | 2023-11-16 12:38 | P.HP ---
Psychiatric H&P - . H&P Date: 11/16/23 History & Physical: Allergies Allergy/AdvReac Type Severity Reaction Status Date / Time No Known Allergies Allergy Verified 11/15/23 08:30 Vital Signs Temp 98.3 F 11/16/23 06:35 Pulse 60 11/16/23 06:35 Resp 17 11/16/23 06:35 BP 115/77 11/16/23 06:35 Pulse Ox 97 11/16/23 06:35 FiO2 Intake & Output 11/15/23 11/16/23 11/16/23 18:59 06:59 18:59 Weight 99.246 kg Laboratory Last Values WBC 6.7 k/uL (3.8-10.6) 11/16/23 07:22 RBC 4.21 m/uL (4.30-5.90) L 11/16/23 07:22 Hgb 13.5 gm/dL (13.0-17.5) 11/16/23 07:22 Hct 40.5 % (39.0-53.0) 11/16/23 07:22 MCV 96.1 fL (80.0-100.0) 11/16/23 07:22 MCH 32.1 pg (25.0-35.0) 11/16/23 07:22 MCHC 33.4 g/dL (31.0-37.0) 11/16/23 07:22 RDW 13.9 % (11.5-15.5) 11/16/23 07:22 Plt Count 227 k/uL (150-450) 11/16/23 07:22 MPV 7.8 11/16/23 07:22 Neutrophils % 58 % 11/16/23 07:22 Lymphocytes % 33 % 11/16/23 07:22 Monocytes % 6 % 11/16/23 07:22 Eosinophils % 2 % 11/16/23 07:22 Basophils % 0 % 11/16/23 07:22 Neutrophils # 3.9 k/uL (1.3-7.7) 11/16/23 07:22 Lymphocytes # 2.2 k/uL (1.0-4.8) 11/16/23 07:22 Monocytes # 0.4 k/uL (0-1.0) 11/16/23 07:22 Eosinophils # 0.1 k/uL (0-0.7) 11/16/23 07:22 Basophils # 0.0 k/uL (0-0.2) 11/16/23 07:22 PT 10.3 sec (10.0-12.5) 11/15/23 03:16 INR 0.9 (<1.2) 11/15/23 03:16 APTT 23.4 sec (22.0-30.0) 11/15/23 03:16 Sodium 139 mmol/L (137-145) 11/16/23 07:22 Potassium 4.2 mmol/L (3.5-5.1) 11/16/23 07:22 Chloride 103 mmol/L (98-107) 11/16/23 07:22 Carbon Dioxide 28 mmol/L (22-30) 11/16/23 07:22 Anion Gap 8 mmol/L 11/16/23 07:22 BUN 11 mg/dL (9-20) 11/16/23 07:22 Creatinine 1.47 mg/dL (0.66-1.25) H 11/16/23 07:22 Est GFR (CKD-EPI)AfAm 61 (>60 ml/min/1.73 sqM) 11/16/23 07:22 Est GFR (CKD-EPI)NonAf 53 (>60 ml/min/1.73 sqM) 11/16/23 07:22 Glucose 92 mg/dL (74-99) 11/16/23 07:22 Calcium 10.0 mg/dL (8.4-10.2) 11/16/23 07:22 Magnesium 2.1 mg/dL (1.6-2.3) 11/15/23 10:16 Total Bilirubin 0.6 mg/dL (0.2-1.3) 11/16/23 07:22 Conjugated Bilirubin 0.0 mg/dL (0.0-0.3) 11/16/23 07:22 Unconjugated Bilirubin 0.4 mg/dL (0.0-1.1) 11/16/23 07:22 Delta Bilirubin 0.2 mg/dL (0.0-0.2) 11/16/23 07:22 AST 43 U/L (17-59) 11/16/23 07:22 ALT 34 U/L (4-49) 11/16/23 07:22 Alkaline Phosphatase 30 U/L (38-126) L 11/16/23 07:22 Troponin I <0.012 ng/mL (0.000-0.034) 11/15/23 03:16 Total Protein 6.5 g/dL (6.3-8.2) 11/16/23 07:22 Albumin 4.3 g/dL (3.5-5.0) 11/16/23 07:22 Amylase 67 U/L (30-110) 11/15/23 03:16 Lipase 363 U/L (23-300) H 11/15/23 03:16 TSH 6.770 mIU/L (0.465-4.680) H 11/16/23 07:22 Urine Color Colorless 11/15/23 22:51 Urine Appearance Clear (Clear) 11/15/23 22:51 Urine pH 6.0 (5.0-8.0) 11/15/23 22:51 Ur Specific Roberts 1.008 (1.001-1.035) 11/15/23 22:51 Urine Protein Negative (Negative) 11/15/23 22:51 Urine Glucose (UA) Negative (Negative) 11/15/23 22:51 Urine Ketones Negative (Negative) 11/15/23 22:51 Urine Blood Negative (Negative) 11/15/23 22:51 Urine Nitrite Negative (Negative) 11/15/23 22:51 Urine Bilirubin Negative (Negative) 11/15/23 22:51 Urine Urobilinogen <2.0 mg/dL (<2.0) 11/15/23 22:51 Ur Leukocyte Esterase Negative (Negative) 11/15/23 22:51 Influenza Type A (PCR) Not Detected (Not Detectd) 11/15/23 06:42 Influenza Type B (PCR) Not Detected (Not Detectd) 11/15/23 06:42 RSV (PCR) Not Detected (Not Detectd) 11/15/23 06:42 SARS-CoV-2 (PCR) Not Detected (Not Detectd) 11/15/23 06:42 11/16/23 08:48 IDENTIFYING DATA: Patient is a 58 year old male, Lives alone in an apartment. Never , no children. Unemployed. Collects SSI HPI: Patient presented to the hospital on 11/14. As per EPS note, "Presents on a petition for suicidal thoughts to harm self and reports' Multiple ways." Patient up at bedside, states he was hurting everywhere, medical workup and cleared. Patient reports severely depressed and hopeless, cannot tolerate living condition, increasing suicidal thoughts secondary to chronic health conditions, Father's failing health and no support from family. Patient reports cannot tolerate life currently and will harm self if sent home. Hx PTSD and mood adjustment disorder. Hx ETOH abuse and chronic pain with use of daily pain medications. " Upon today's assessment, the patient states that he was having alot of pain, and he was upset about where he lives, and he was having suicidal thoughts. He states that he was taking [place] at home, prescribed by Dr Martini, and drinking alcohol prior to coming to the hospital. He states that his father is getting old, and he knows he isn't going to live forever, so that is making him sad, he states that his apartment is too small, and it gives him claustrophobia. He feels stuck and hopeless. He denies any withdraw symptoms from alcohol. He claims his sleep is good, and his appetite is good. Patient denies any suicidal ideations today, or homicidal ideations intent or plan. At this time patient denies any auditory or visual hallucinations. Patient denies any flight of ideas racing thoughts and increased in goal directed behavior. Patient admits to using alcohol, 3-5 alcoholic beverages a week. He vapes nicotine. PAST PSYCHIATRIC HISTORY: Patient states that he has been diagnosed with depression and anxiety and antisocial disorder, by [facility]. Patient was last ad mitted to this unit in July of this year.Patient follows up with [facility]. [Patient denies any history of suicide attempts in the past.] PMH:As per ER note ALLERGIES: as per EMR CHEMICAL DEPENDENCY HISTORY: as per HPI FAMILY PSYCHIATRIC/SUBSTANCE USE HISTORY: Paternal grandmother had mental illness. Sister has schizophrenia. SOCIAL HISTORY: The patient was born in [place] and raised in [place]; [place]. He grew-up with 2 sisters and one brother. Never . No children. He finished HS. 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 His longest job was for 6 years. The patient has been incarcerated in the past for home invasion, and DUIx2. Has been to rehab x3 MENTAL STATUS EXAM: General Appearance: Patient appears to be older than stated age is alert, [directable, and attempts to cooperate]. Patient appears to have [poor] hygiene and grooming. Disheveled, dressed casually. Behavior: Patient is seated without any agitated behavior. Poor eye contact Speech: Patient's speech is [fluent and nonpressured.] Mood/Affect: Patient reports their mood is [depressed and hopeless, affect is congruent and constricted. Suicidality/Homicidality: Patient denies having any homicidal ideation intent or plan. [Denies any suicidal ideations intent or plan] Perceptions: Patient denies any visual hallucinations [and denies any auditory hallucinations] Though content/process: [There is no evidence of any delusional thought content and thought process is linear Memory and concentration: AOX3, grossly intact for the purposes of this session. Can spell "WORLD" backwards Judgment and insight: [poor] STRENGTHS/WEAKNESSES: strength is that patient is [resilient]. Weakness is that patient [has poor judgment and is impulsive] INTELLECT: [average] IMPRESSIONS: major depressive disorder, without psychotic features possible opiate abuse possible benzodiazepine abuse personality disorder, unspecified [nicotine dependance] alcohol use disorder, severe, dependance PLAN: -Patient is admitted under [voluntary] status to MHU for stabilization of psychiatric symptoms and safety. Patient has signed [adult voluntary form and] [medication consent] and is placed in patient's chart. -Medications : Will start patient on Cymbalta 30mg daily for depression/anxiety, Remeron 15mg qhs prn for sleep, librium 20mg po tid for alcohol withdraw, with plan to titrate down. -Ativan [and Haldol] PRN for agitation/aggression [-Started thiamine, MVM for etoh use] [-CIWA protocol with Ativan PRN for ETOH withdrawal] [-Patient was counselled on substance abuse and desired to cut back on use] -Patient was informed of the risks, benefits and side effects of the medication and patient verbally consented to taking the medications. -Internal Medicine consult to perform medical evaluation and physical. -NRT - [nicotine patch] -SW on board for discharge planning. Encourage patient to participate in groups to work on coping skills.
[2023-11-16] MEDS: DULoxetine HCL 30 MG CAPSULE.DR PO SCH (13:27)
[2023-11-16] MEDS: LORazepam 1 MG TAB PO PRN (20:19)
[2023-11-16] MEDS: MIRTAZAPINE 15 MG TAB PO PRN (22:25)
[2023-11-16] MEDS: LOSARTAN 50 MG TAB PO SCH (23:40)
[2023-11-16] MEDS: hydrALAZINE HCL 50 MG TAB PO SCH (23:40)
--- NOTE | 2023-11-17 02:34 | HP ---
HISTORY AND PHYSICAL CHIEF COMPLAINT: Major depression and alcoholism. HISTORY OF PRESENT ILLNESS: This is another of many admissions for this chronic alcoholic. He has been under quite a bit of stress lately and also he had a great deal of problems with back pain, chest pain, abdominal pain. He became discouraged and started drinking again and became depressed and somewhat suicidal and came to emergency room and he was admitted. REVIEW OF SYSTEMS: He has had no recent problems of headaches. He has been drinking again. He has had no shortness of breath. He has an extensive history of coronary artery disease as well. He has had no hematemesis, melena, jaundice, etc. His lipase is elevated. He has had no history of renal disease. Past medical history, family history, personal and social histories can all be found in his admitting summary. He had a CT scan of the abdomen not long ago. PHYSICAL EXAMINATION: VITAL SIGNS: Normal. HEAD, EARS, EYES, NOSE, MOUTH AND THROAT: Normal. His eyes are somewhat puffy. CHEST: Clear. CARDIAC: Demonstrates sinus rhythm. ABDOMEN: Protuberant. He was slightly tender over the epigastrium. EXTREMITIES: Normal. NEUROLOGICAL: He is intact. IMPRESSION: He is admitted to the hospital with diagnoses of, 1. Major depression. 2. Chronic alcoholism. 3. Coronary artery disease. 4. Pancreatitis. RECOMMENDATIONS: None at this time. MMODL / IJN: [id number] /
--- NOTE | 2023-11-17 10:06 | P.PN ---
Progress Note - Text Progress Note Date: 11/17/23 Interval history: Patient was seen laying in bed this morning and was directable and agreeable to speak with quality analyst/technical writer. Patient was fairly focused on his pain management, claims that she is going to minor withdrawal having upset stomach from not taking his Percocet 3 times a day. He was pleading with quality analyst/technical writer to have it increased again, quality analyst/technical writer increased to today back to his home dose. Patient states that he is still having mild anxiety and depression, these are mildly improving since yesterday. Claims that he had a difficult time sleeping last night due to the pain, mainly isolating in his room. At this time patient denies any suicidal or homicidal ideations intent or plan. Denies any Auditory or visual hallucinations. Patient denies any side effects from the medications and has been compliant with meds. Mental status exam: General Appearance: Patient appears to be stated age is alert, directable, and attempts to be cooperative. Behavior: No agitated behavior. Patient is calm and directable Speech: Patient's speech is fluent and nonpressured. Mood/Affect: Mood is improving mildly, affect is congruent and constricted. Suicidality/Homicidality: Patient denies having any suicidal or homicidal ideation intent or plan. Perceptions: Patient denies any auditory or visual hallucinations. Though content/process: There is no evidence of any delusional thought content and thought process is linear and goal-directed. Focused on pain management Memory and concentration: AOX3, grossly intact for the purposes of this session Judgment and insight: improving mildly Assessment/Plan: Continue with current diagnosis. Patient continues to meet criteria for inpatient psychiatric admission for symptom stabilization and safety. Patient will be maintained on current psychotropic medication regimen. Exception, increased back to home dose of Percocet 3 times a day as needed. Librium decreased to 10 mg 4 times a day for alcohol withdrawal. Monitor for medication compliance and for any psychotropic medication side effects. Will continue to monitor ongoing response to treatment. Encouraged participation in milieu.
[2023-11-17] MEDS: oxyCODONE-APAP 10-325MG 1 EACH TAB PO PRN (11:59)
[2023-11-17] MEDS: LORazepam 1 MG TAB PO PRN (11:59)
[2023-11-19] MEDS: hydrOXYzine pamoate 25 MG CAP PO PRN (01:48)
--- NOTE | 2023-11-19 12:10 | P.PN ---
Progress Note - Text Progress Note Date: 11/19/23 Interval History: Patient was seen in his room, sleeping and was directable and agreeable to speak with card writer hand at the bedside. Patient was sleeping, however, was easily aroused. He claims to have gotten no sleep last night. Spoke with patient about different options for sleep, patient agreeable to try melatonin, along with Remeron. He states his appetite is good. Client Support Consultant spoke with patient about rehab, patient declined. At this time patient denies any suicidal or homicidal ideations, intent or plan. Patient denies any auditory, visual hallucinations and denies any paranoia or delusions. Patient denies any side effects from the medications and has been compliant with meds. MENTAL STATUS EXAM: General Appearance: Patient appears to be older than stated age is alert, [directable, and attempts to cooperate]. Patient appears to have [poor] hygiene and grooming. Disheveled, dressed casually. Behavior: Patient is seated without any agitated behavior. improved eye contact Speech: Patient's speech is [fluent and nonpressured. Mood/Affect: Patient reports their mood is [depressed and hopeless, affect is congruent and constricted. Suicidality/Homicidality: Patient denies having any homicidal ideation intent or plan. [Denies any suicidal ideations intent or plan] Perceptions: Patient denies any visual hallucinations [and denies any auditory hallucinations] Though content/process: [There is no evidence of any delusional thought content and thought process is linear Memory and concentration: AOX3, grossly intact for the purposes of this session. 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 Patient has signed adult voluntary form and medication consent and is placed in patient's chart. -Medications : increase Cymbalta 30mg bid for depression/anxiety, increase Remeron 30mg qhs for sleep, add melatonin 6mg qhs for sleep, decrease librium 10mg po tid for alcohol withdraw, with plan to titrate down. -Ativan [and Haldol] PRN for agitation/aggression -thiamine, MVM for etoh use -CIWA protocol with Ativan PRN for ETOH withdrawal -NRT - [nicotine patch] -SW on board for discharge planning. Encourage patient to participate in groups to work on coping skills. Patient declined rehab. likely discharge if patient is improving.
[2023-11-19] MEDS: NICOTINE GUM (POLACRILEX) 2 MG GUM BUCCAL PRN (13:26)
[2023-11-19] MEDS: DULoxetine HCL 30 MG CAPSULE.DR PO SCH (21:02)
[2023-11-19] MEDS: MIRTAZAPINE 15 MG TAB PO SCH (22:03)
[2023-11-19] MEDS: MELATONIN 3 MG TABLET PO SCH (22:03)
[2023-11-20] MEDS ORDERED: LORazepam 1 MG TAB PO PRN ×2 (11:31)
--- NOTE | 2023-11-20 11:35 | P.PN ---
Progress Note - Text Progress Note Date: 11/20/23 Interval History: Patient was seen in his room, laying down, and agreeable to speak with administrative underwriter in the office. Patient states he is ok today, a bit tired. He claims he got about 6 hours of sleep last night, and went back to sleep after breakfast. He claims he is going to groups. He states his appetite is good. He states he has a lot of energy in the morning, then he will take his medication, and it will drop. Golf Stud Riveter spoke to patient about lowering his PRN ativan, to help with his energy level. Patient agreeable. At this time patient denies any suicidal or homicidal ideations, intent or plan. Patient denies any auditory, visual hallucinations and denies any paranoia or delusions. Patient denies any side effects from the medications and has been compliant with meds. MENTAL STATUS EXAM: General Appearance: Patient appears to be older than stated age is alert, [directable, and attempts to cooperate]. Patient appears to have [poor] hygiene and grooming. Disheveled, dressed casually. Behavior: Patient is seated without any agitated behavior. improved eye contact Speech: Patient's speech is [fluent and nonpressured. Mood/Affect: Patient reports their mood is [depressed and hopeless, affect is congruent and constricted. improving mildly Suicidality/Homicidality: Patient denies having any homicidal ideation intent or plan. [Denies any suicidal ideations intent or plan] Perceptions: Patient denies any visual hallucinations [and denies any auditory hallucinations] Though content/process: [There is no evidence of any delusional thought content and thought process is linear Memory and concentration: AOX3, grossly intact for the purposes of this session. 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 Patient has signed adult voluntary form and medication consent and is placed in patient's chart. -Medications : Cymbalta 30mg bid for depression/anxiety, Remeron 30mg qhs for sleep, melatonin 6mg qhs for sleep, decrease librium 10mg po bid for alcohol withdraw, last dose 10/9, am -Ativan [and Haldol] PRN for agitation/aggression -thiamine, MVM for etoh use -change CIWA protocol with Ativan PRN for ETOH withdrawal to q shift. D/C lynne augustin, 11/20 -NRT - [nicotine patch] -SW on board for discharge planning. Encourage patient to participate in groups to work on coping skills. Patient declined rehab. likely discharge if patient is improving.
--- NOTE | 2023-11-21 11:28 | P.PN ---
Progress Note - Text Progress Note Date: 11/21/23 Interval History: Patient was seen in his room, laying down, and agreeable to speak with functional tester typewriters in the office. Patient states he is doing good today, better than he has felt in a while. He claims that he had broken sleep last night, only got sleep in intervals of 3 hours last night. Encouraged patient to stay up during the day, rather than laying in bed, napping. Patient is attending groups, and he states that his appetite is good. At this time patient denies any suicidal or homicidal ideations, intent or plan. Patient denies any auditory, visual hallucinations and denies any paranoia or delusions. Patient denies any side effects from the medications and has been compliant with meds. MENTAL STATUS EXAM: General Appearance: Patient appears to be older than stated age is alert, directable, and attempts to cooperate. Patient appears to have [poor] hygiene and grooming. Disheveled, dressed casually. Behavior: Patient is seated without any agitated behavior. improved eye contact Speech: Patient's speech is fluent and nonpressured. Mood/Affect: Patient reports their mood is better, affect is congruent and constricted. improving mildly Suicidality/Homicidality: Patient denies having any homicidal ideation intent or plan. [Denies any suicidal ideations intent or plan] Perceptions: Patient denies any visual hallucinations and denies any auditory hallucinations Though content/process: There is no evidence of any delusional thought content and thought process is linear Memory and concentration: AOX3, grossly intact for the purposes of this session. 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 Patient has signed adult voluntary form and medication consent and is placed in patient's chart. -Medications : Cymbalta 30mg bid for depression/anxiety, increase Remeron 45 mg qhs for sleep, melatonin 6mg qhs for sleep, d/c librium -Ativan and Haldol PRN for agitation/aggression -thiamine, MVM for etoh use -d/c CIWA -NRT - nicotine patch -SW on board for discharge planning. Encourage patient to participate in groups to work on coping skills. Patient declined rehab. likely discharge tomorrow
[2023-11-21] MEDS: LORazepam 0.5 MG TAB PO PRN (13:22)
[2023-11-21] MEDS: MIRTAZAPINE 45 MG TABLET PO SCH (20:00)
[2023-11-21] MEDS: MELATONIN 5 MG TABLET PO SCH (20:00)
[2023-11-22 05:23] VITALS: BP 133/86; PULSE 91; RESP 18; TEMP 97.1
--- NOTE | 2023-11-22 10:23 | P.DS ---
Providers Date of admission: 11/15/23 12:43 Expected date of discharge: 11/22/23 Attending physician: Reji Edmonds MD Consults: 11/15/23 12:53 Consult Physician Routine Consulting Provider: Zeyad Martini Consult Reason/Comments: History and Physical, New Admission Do you want consulting provider notified?: Yes Primary care physician: Zeyad Martini - Discharge Diagnosis(es) (1) Major depressive disorder without psychotic features Current Visit: Yes Status: Acute Priority: High (2) Personality disorder, unspecified Current Visit: Yes Status: Acute Priority: High (3) Nicotine dependence Current Visit: Yes Status: Acute Priority: Low (4) Alcohol use disorder, severe, dependence Current Visit: Yes Status: Acute Priority: High Hospital Course: Admission HPI: Admission note was completed by chart writer "Patient presented to the hospital on 11/14. As per EPS note, "Presents on a petition for suicidal thoughts to harm self and reports' Multiple ways." Patient up at bedside, states he was hurting everywhere, medical workup and cleared. Patient reports severely depressed and hopeless, cannot tolerate living condition, increasing suicidal thoughts secondary to chronic health conditions, Father's failing health and no support from family. Patient reports cannot tolerate life currently and will harm self if sent home. Hx PTSD and mood adjustment disorder. Hx ETOH abuse and chronic pain with use of daily pain medications. " Upon today's assessment, the patient states that he was having alot of pain, and he was upset about where he lives, and he was having suicidal thoughts. He states that he was taking [place] at home, prescribed by Dr Martini, and drinking alcohol prior to coming to the hospital. He states that his father is getting old, and he knows he isn't going to live forever, so that is making him sad, he states that his apartment is too small, and it gives him claustrophobia. He feels stuck and hopeless. He denies any withdraw symptoms from alcohol. He claims his sleep is good, and his appetite is good. Patient denies any suicidal ideations today, or homicidal ideations intent or plan. At this time patient denies any auditory or visual hallucinations. Patient denies any flight of ideas racing thoughts and increased in goal directed behavior. Patient admits to using alcohol, 3-5 alcoholic beverages a week. He vapes nicotine. " Hospital course: Upon admission to the unit patient was directable and agreeable to commence treatment and signed adult voluntary form. Patient was initially fairly isolative, with time of treatment he eventually got along well with other patients on the unit and followed unit protocol. Patient was compliant with the medications and denied any side effects throughout hospital course. Patient was started on Cymbalta 30 mg twice daily for mood/anxiety, Remeron 45 mg nightly for sleep/mood/anxiety, melatonin 10 mg nightly for sleep, Librium was started scheduled however with time it was gradually tapered off for alcohol withdrawal . Patient spoke of his stressors and engaged in therapy both group and individual. Patient was also seen by medical team for history and physical exam. Throughout the course of the hospitalization patient gradually improved with regards to mood, anxiety, withdrawal symptoms, sleep and returned back to their baseline level of functioning. On the day of discharge patient denied any suicidal or homicidal ideations intent or plan denied any auditory or visual hallucinations. Patient endorsed wanting to live for his health and family. The patient denied any access to guns or weapons. Patient denied any paranoia and did not endorse any delusions. Patient does have a significant history of substance abuse and was counseled on abstaining from all substances including alcohol and marijuana. Patient declined anticraving medications for alcohol use. Patient was offered however declined inpatient substance-abuse rehab. Patient elected to do outpatient substance use treatment program through [facility]. Patient was also counseled on the medications and need for regular compliance and was encouraged to follow-up with their outpatient appointment for mental health and also for primary care. Mental status exam: General Appearance: Patient appears to be over weight, stated age is alert, pleasant, and cooperative. Patient is in no acute distress and has improved hygiene and grooming Behavior: Patient is calmly seated without any agitated behavior. Speech: Patient's speech is fluent and nonpressured. Mood/Affect: Patient reports their mood is "good", affect is congruent and euthymic. Suicidality/Homicidality: Patient denies having any suicidal or homicidal ideation intent or plan. Perceptions: Patient denies any auditory or visual hallucinations. Though content/process: There is no evidence of any delusional thought content and thought process is linear and goal-directed. More future oriented Memory and concentration: AOX3, grossly intact for the purposes of this session. Can spell "WORLD" backwards correctly. Judgment and insight: Chronically poor, however has improved with guarded prognosis Impression: major depressive disorder, without psychotic features possible opiate abuse possible benzodiazepine abuse personality disorder, unspecified nicotine dependance alcohol use disorder, severe, dependance Plan: -Continue with discharge today as patient has improved and stabilized psychiatrically and is not currently an imminent threat to himself and/or others. Patient will remain at chronically elevated risk for harm to self and/or others due to his impulsivity and substance abuse. -Continue medications: Cymbalta 30 mg twice daily for depression/anxiety, Remeron 45 mg nightly for sleep, melatonin 10 mg nightly for sleep. Librium has been tapered off. As needed for anxiety. -Patient was counseled on the need for medication compliance and appropriate follow-up at mental health and also primary care for medical issues. Patient verbalized understanding and agreed. -Social work to help coordinate patient's discharge today back home. Social work also to arrange for patients follow up appointments with [facility] for psychiatric care along with follow up with primary care provider. -Patient counseled on abstaining from recreational drugs and marijuana and alcohol. Was informed/educated on the adverse effects on their physical and mental health. Patient verbally agreed and understood. Patient was offered substance abuse treatment however declined at this time. -Patient was instructed to return to the hospital or seek immediate medical care if their psychiatric or medical symptoms do worsen or reoccur. ] Allergies Allergy/AdvReac Type Severity Reaction Status Date / Time No Known Allergies Allergy Verified 11/15/23 08:30 Laboratory Results WBC 6.7 k/uL (3.8-10.6) 11/16/23 07:22 RBC 4.21 m/uL (4.30-5.90) L 11/16/23 07:22 Hgb 13.5 gm/dL (13.0-17.5) 11/16/23 07:22 Hct 40.5 % (39.0-53.0) 11/16/23 07:22 MCV 96.1 fL (80.0-100.0) 11/16/23 07:22 MCH 32.1 pg (25.0-35.0) 11/16/23 07: MCHC 33.4 g/dL (31.0-37.0) 11/16/23 07:22 RDW 13.9 % (11.5-15.5) 11/16/23 07:22 Plt Count 227 k/uL (150-450) 11/16/23 07:22 MPV 7.8 11/16/23 07:22 Neutrophils % 58 % 11/16/23 07:22 Lymphocytes % 33 % 11/16/23 07:22 Monocytes % 6 % 11/16/23 07:22 Eosinophils % 2 % 11/16/23 07:22 Basophils % 0 % 11/16/23 07:22 Neutrophils # 3.9 k/uL (1.3-7.7) 11/16/23 07:22 Lymphocytes # 2.2 k/uL (1.0-4.8) 11/16/23 07:22 Monocytes # 0.4 k/uL (0-1.0) 11/16/23 07:22 Eosinophils # 0.1 k/uL (0-0.7) 11/16/23 07:22 Basophils # 0.0 k/uL (0-0.2) 11/16/23 07:22 PT 10.3 sec (10.0-12.5) 11/15/23 03:16 INR 0.9 (<1.2) 11/15/23 03:16 APTT 23.4 sec (22.0-30.0) 11/15/23 03:16 Sodium 139 mmol/L (137-145) 11/16/23 07:22 Potassium 4.2 mmol/L (3.5-5.1) 11/16/23 07:22 Chloride 103 mmol/L (98-107) 11/16/23 07:22 Carbon Dioxide 28 mmol/L (22-30) 11/16/23 07:22 Anion Gap 8 mmol/L 11/16/23 07:22 BUN 11 mg/dL (9-20) 11/16/23 07:22 Creatinine 1.47 mg/dL (0.66-1.25) H 11/16/23 07:22 Est GFR (CKD-EPI)AfAm 61 (>60 ml/min/1.73 sqM) 11/16/23 07:22 Est GFR (CKD-EPI)NonAf 53 (>60 ml/min/1.73 sqM) 11/16/23 07:22 Glucose 92 mg/dL (74-99) 11/16/23 07:[address] Glu mg/dL 126 mg/dL 11/16/23 07:22 Hemoglobin A1c 6.0 % (<=6.0) 11/16/23 07:22 Calcium 10.0 mg/dL (8.4-10.2) 11/16/23 07:22 Magnesium 2.1 mg/dL (1.6-2.3) 11/15/23 10:16 Total Bilirubin 0.6 mg/dL (0.2-1.3) 11/16/23 07:22 Conjugated Bilirubin 0.0 mg/dL (0.0-0.3) 11/16/23 07:22 Unconjugated Bilirubin 0.4 mg/dL (0.0-1.1) 11/16/23 07:22 Delta Bilirubin 0.2 mg/dL (0.0-0.2) 11/16/23 07:22 AST 43 U/L (17-59) 11/16/23 07:22 ALT 34 U/L (4-49) 11/16/23 07:22 Alkaline Phosphatase 30 U/L (38-126) L 11/16/23 07:22 Troponin I <0.012 ng/mL (0.000-0.034) 11/15/23 03:16 Total Protein 6.5 g/dL (6.3-8.2) 11/16/23 07:22 Albumin 4.3 g/dL (3.5-5.0) 11/16/23 07:22 Triglycerides 139.00 mg/dL (0.00-149.00) 11/16/23 07:22 Cholesterol 160.00 mg/dL (0.00-200.00) 11/16/23 07:22 LDL Cholesterol, Calc 75.0 mg/dL (0.0-131.0) 11/16/23 07:22 VLDL Cholesterol, Calc 27.80 mg/dL (5.00-40.00) 11/16/23 07:22 HDL Cholesterol 57.20 mg/dL (40.00-60.00) 11/16/23 07:22 Cholesterol/HDL Ratio 2.80 Ratio 11/16/23 07:22 Amylase 67 U/L (30-110) 11/15/23 03:16 Lipase 363 U/L (23-300) H 11/15/23 03:16 TSH 6.770 mIU/L (0.465-4.680) H 11/16/23 07:22 Urine Color Colorless 11/15/23 22:51 Urine Appearance Clear (Clear) 11/15/23 22:51 Urine pH 6.0 (5.0-8.0) 11/15/23 22:51 Ur Specific [place] 1.008 (1.001-1.035) 11/15/23 22:51 Urine Protein Negative (Negative) 11/15/23 22:51 Urine Glucose (UA) Negative (Negative) 11/15/23 22:51 Urine Ketones Negative (Negative) 11/15/23 22:51 Urine Blood Negative (Negative) 11/15/23 22:51 Urine Nitrite Negative (Negative) 11/15/23 22:51 Urine Bilirubin Negative (Negative) 11/15/23 22:51 Urine Urobilinogen <2.0 mg/dL (<2.0) 11/15/23 22:51 Ur Leukocyte Esterase Negative (Negative) 11/15/23 22:51 Influenza Type A (PCR) Not Detected (Not Detectd) 11/15/23 06:42 Influenza Type B (PCR) Not Detected (Not Detectd) 11/15/23 06:42 RSV (PCR) Not Detected (Not Detectd) 11/15/23 06:42 SARS-CoV-2 (PCR) Not Detected (Not Detectd) 11/15/23 06:42 Vital Signs Temp 97.1 F L 11/22/23 05:22 Pulse 91 11/22/23 05:22 Resp 18 11/22/23 05:22 BP 133/86 11/22/23 05:22 Pulse Ox 97 11/22/23 05:22 FiO2 Patient Condition at Discharge: Stable Plan - Discharge Summary Discharge Rx Participant: No New Discharge Prescriptions: New DULoxetine HCL [Cymbalta] 30 mg PO BID 30 Days #60 cap Melatonin 10 mg PO HS 30 Days #60 tab Nicotine Gum (Polacrilex) [Nicorette] 2 mg BUCCAL Q4HR PRN 30 Days #180 pieceofgum PRN Reason: Nicotine Cravings Mirtazapine [Remeron] 45 mg PO HS 30 Days #30 tab hydrALAZINE HCL [Apresoline] 100 mg PO TID 30 Days #180 tab Losartan [Cozaar] 100 mg PO DAILY 30 Days #30 tab Folic Acid 1 mg PO DAILY 30 Days #30 tab Nicotine 14Mg/24Hr Patch [Habitrol] 1 patch TRANSDERM DAILY 14 Days #14 patch Clotrimazole Cream [Lotrimin Cream] 1 applic TOPICAL BID 30 Days #1 each Ibuprofen [Motrin] 600 mg PO Q6HR PRN tab PRN Reason: Moderate Pain (Scale 4 To 6) Multivitamins, Thera [Multivitamin (formulary)] 1 each PO DAILY 30 Days #30 tab hydrOXYzine pamoate [Vistaril] 50 mg PO DAILY PRN 30 Days #60 cap PRN Reason: Anxiety Continue Clopidogrel [Plavix] 75 mg PO DAILY #30 tab Rosuvastatin Calcium 5 mg PO DAILY lisinopriL [Zestril] 10 mg PO DAILY oxyCODONE-APAP 10-325MG [Percocet 10-325 mg] 1 tab PO TID PRN PRN Reason: Pain Isosorbide Mononitrate ER [Imdur] 30 mg PO DAILY #30 tab Chlorthalidone [Hygroton] 25 mg PO DAILY 7 Days #21 tab Famotidine [Pepcid] 20 mg PO DIRECTED 30 Days #30 tab Thiamine [Vitamin B-1] 100 mg PO BID 30 Days #60 tab Metoprolol Tartrate [Lopressor] 25 mg PO BID Nitroglycerin Sl Tabs [Nitrostat] 0.4 mg SUBLINGUAL Q5M PRN PRN Reason: Chest Pain Aspirin EC [Ecotrin Low Dose] 81 mg PO DAILY Pantoprazole Sodium [Protonix] 40 mg PO DAILY 30 Days #30 tab Discontinued traZODone HCL [Desyrel] 100 mg PO HS PRN PRN Reason: Insomnia Folic Acid 1 mg PO DAILY #100 tab Ketoconazole 2% Cream [Nizoral 2%] 1 applic TOPICAL BID Ondansetron Odt [Zofran ODT] 4 mg PO DIRECTED PRN PRN Reason: Nausea Discharge Medication List Clopidogrel [Plavix] 75 mg PO DAILY #30 tab 05/22/21 [Rx] Metoprolol Tartrate [Lopressor] 25 mg PO BID 10/29/21 [History] Rosuvastatin Calcium 5 mg PO DAILY 10/07/22 [History] lisinopriL [Zestril] 10 mg PO DAILY 12/30/22 [History] oxyCODONE-APAP 10-325MG [Percocet 10-325 mg] 1 tab PO TID PRN 06/22/23 [History] Isosorbide Mononitrate ER [Imdur] 30 mg PO DAILY #30 tab 06/26/23 [Rx] Chlorthalidone [Hygroton] 25 mg PO DAILY 7 Days #21 tab 08/14/23 [Rx] Aspirin EC [Ecotrin Low Dose] 81 mg PO DAILY 10/24/23 [History] Nitroglycerin Sl Tabs [Nitrostat] 0.4 mg SUBLINGUAL Q5M PRN 10/24/23 [History] Clotrimazole Cream [Lotrimin Cream] 1 applic TOPICAL BID 30 Days #1 each 11/22/23 [Rx] DULoxetine HCL [Cymbalta] 30 mg PO BID 30 Days #60 cap 11/22/23 [Rx] Famotidine [Pepcid] 20 mg PO DIRECTED 30 Days #30 tab 11/22/23 [Rx] Folic Acid 1 mg PO DAILY 30 Days #30 tab 11/22/23 [Rx] Ibuprofen [Motrin] 600 mg PO Q6HR PRN tab 11/22/23 [Rx] Losartan [Cozaar] 100 mg PO DAILY 30 Days #30 tab 11/22/23 [Rx] Melatonin 10 mg PO HS 30 Days #60 tab 11/22/23 [Rx] Mirtazapine [Remeron] 45 mg PO HS 30 Days #30 tab 11/22/23 [Rx] Multivitamins, Thera [Multivitamin (formulary)] 1 each PO DAILY 30 Days #30 tab 11/22/23 [Rx] Nicotine 14Mg/24Hr Patch [Habitrol] 1 patch TRANSDERM DAILY 14 Days #14 patch 11/22/23 [Rx] Nicotine Gum (Polacrilex) [Nicorette] 2 mg BUCCAL Q4HR PRN 30 Days #180 pieceofgum 11/22/23 [Rx] Pantoprazole Sodium [Protonix] 40 mg PO DAILY 30 Days #30 tab 11/22/23 [Rx] Thiamine [Vitamin B-1] 100 mg PO BID 30 Days #60 tab 11/22/23 [Rx] hydrALAZINE HCL [Apresoline] 100 mg PO TID 30 Days #180 tab 11/22/23 [Rx] hydrOXYzine pamoate [Vistaril] 50 mg PO DAILY PRN 30 Days #60 cap 11/22/23 [Rx] Follow up Appointment(s)/Referral(s): [facility] [Outside] - 11/26/23 9:30 am (with Radha) Zeyad Martini MD [Primary Care Provider] - 1-2 days Activity/Diet/Wound Care/Special Instructions: Avoid the use of street drugs and alcohol. Take all medications as prescribed. When you are in need of refills on your medications, please contact your medical provider and/or outpatient psychiatrist/provider to have this done. Please go to your scheduled outpatient appointment for aftercare treatment. If symptoms return or become worse, call the crisis line at and/or go to the nearest emergency room for evaluation. National Suicide Hotline 988 Discharge Disposition: HOME SELF-CARE
== END 2023-11-22 11:55 | disposition home or self-care (01) | DRG 754 ==
LOC: EC 02:37 → 3MHU 12:43
PROVIDERS: ADMIT Psychiatry & Neurology Psychiatry; ATTEND Psychiatry & Neurology Psychiatry
DX: F32.9 Major depressive disorder, single episode, unspecified (principal); F41.9 Anxiety disorder, unspecified; F43.10 Post-traumatic stress disorder, unspecified; F60.9 Personality disorder, unspecified; G89.29 Other chronic pain; E78.5 Hyperlipidemia, unspecified; R45.87 Impulsiveness; I10 Essential (primary) hypertension; M54.2 Cervicalgia; I48.91 Unspecified atrial fibrillation; M19.90 Unspecified osteoarthritis, unspecified site; F17.290 Nicotine dependence, other tobacco product, uncomplicated; F10.239 Alcohol dependence with withdrawal, unspecified; F40.240 Claustrophobia; R45.851 Suicidal ideations; Z79.02 Long term (current) use of antithrombotics/antiplatelets; Z79.82 Long term (current) use of aspirin; Z79.899 Other long term (current) drug therapy; Z95.1 Presence of aortocoronary bypass graft; I25.10 Atherosclerotic heart disease of native coronary artery without angina pectoris; F11.10 Opioid abuse, uncomplicated; Z71.41 Alcohol abuse counseling and surveillance of alcoholic; Z71.51 Drug abuse counseling and surveillance of drug abuser; F13.10 Sedative, hypnotic or anxiolytic abuse, uncomplicated; F43.20 Adjustment disorder, unspecified
CPT/HCPCS: 36415; 80053; 80061; 81003; 82075; 82150; 82248; 83036; 83690; 83735; 84443; 84484; 85025; 85610; 85730; 87636; 93005; 96361; 96365; 96366; 96375; 99291

== ENCOUNTER 2024-06-17 14:55 | Emergency (ER) | payer OTHER ==
[2024-06-17 15:03] VITALS: BP 125/88; PULSE 87; RESP 20; TEMP 98.4
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
[2024-06-17] MEDS: LORazepam 2 MG/ML INJ IM STA (15:58)
[2024-06-17] MEDS: ACETAMINOPHEN TAB 500 MG TAB PO STA (17:01)
[2024-06-17 17:21] LABS: Amphetamine Screen,Urine Not Detected (NotDetected); Barbiturate Screen,Urine Not Detected (NotDetected); Benzodiazepines Screen,Urine Not Detected (NotDetected); Cocaine Screen,Urine Detected (NotDetected); Methadone Screen, Urine Not Detected (NotDetected); Opiate Screen,Urine Detected (NotDetected); Oxycodone Screen, Urine Not Detected (NotDetected); Phencyclidine Screen,Urine Not Detected (NotDetected); Tricyclic Antidepressant,Urine Not Detected (NotDetected); Urn Cannabinoid Scrn Detected (NotDetected)
== END 2024-06-17 22:54 | disposition home or self-care (01) ==
LOC: EC 14:55
DX: F10.20 Alcohol dependence, uncomplicated (principal); F17.200 Nicotine dependence, unspecified, uncomplicated
CPT/HCPCS: 80306; 99284; 96372; J2060

== ENCOUNTER 2024-06-19 00:20 | Observation (INO) | payer OTHER ==
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
[2024-06-19] MEDS: SODIUM CHLORIDE 0.9% 500 ML 500 ML IV STA (00:51)
[2024-06-19] MEDS: ONDANSETRON 4 MG/2 ML VIAL IVP STA (00:52)
[2024-06-19] MEDS: NITROGLYCERIN SL TABS 0.4 MG TAB SUBLINGUAL STA (00:53)
[2024-06-19] MEDS: NITROGLYCERIN OINT 1 INCH/GM PACKET TOPICAL STA (00:53)
[2024-06-19] MEDS: MORPHINE SULFATE 4 MG/ML SYRINGE IV STA (00:55)
[2024-06-19 01:13] LABS: Basophils # (A) 0.03 10*3/uL (0.00-0.10); Basophils % (A) 0.7 %; Eosinophils # (A) 0.04 10*3/uL (0.04-0.35); Eosinophils % (A) 0.9 %; Lymphocytes # (A) 1.88 10*3/uL (0.90-5.00); Lymphocytes % (A) 41.1 %; MCH 33.5 pg (27.0-32.0); MCHC 36.1 g/dL (32.0-37.0); MCV 92.8 fL (80.0-97.0); Mean Platelet Volume 9.1 fL (9.5-12.2); Monocytes # (A) 0.42 10*3/uL (0.20-1.00); Monocytes % (A) 9.2 %; Neutrophils # (A) 2.19 10*3/uL (1.80-7.70); Neutrophils % (A) 47.9 %; Platelet Count 205 10*3/uL (140-440); RBC 3.88 10*6/uL (4.40-5.60); RDW 12.9 % (11.5-14.5); WBC 4.57 10*3/uL (4.50-10.00)
[2024-06-19 01:31] LABS: INR 0.9 (<1.2); Partial Thromboplastin Time 22.1 sec (22.0-30.0); Prothrombin Time 10.4 sec (10.0-12.5)
[2024-06-19 01:32] LABS: ALT 52 U/L (4-49); AST 107 U/L (17-59); African American GFR (CKD) 50 (>60 ml/min/1.73 sqM); Albumin 4.6 g/dL (3.5-5.0); Alkaline Phosphatase 47 U/L (38-126); Anion Gap 16 mmol/L; Blood Urea Nitrogen 21 mg/dL (9-20); Calcium 9.5 mg/dL (8.4-10.2); Carbon Dioxide 26 mmol/L (22-30); Chloride 103 mmol/L (98-107); Glucose 123 mg/dL (74-99); Lipase 370 U/L (23-300); Magnesium 1.6 mg/dL (1.6-2.3); Non-African American GFR(CKD) 43 (>60 ml/min/1.73 sqM); Potassium 3.8 mmol/L (3.5-5.1); Sodium 145 mmol/L (137-145); Total Bilirubin 0.5 mg/dL (0.2-1.3); Total Protein 7.3 g/dL (6.3-8.2)
[2024-06-19 01:39] LABS: NT-Pro-B-Type Natriuretic Pept 82 pg/mL
[2024-06-19 01:42] LABS: Alcohol 319 mg/dL
[2024-06-19] MEDS ORDERED: NALOXONE 0.4 MG/ML 1 ML VIAL IV PRN (01:55)
[2024-06-19] MEDS ORDERED: LORazepam 1 MG/0.5 ML VIAL IV PRN ×3 (01:56)
[2024-06-19] MEDS ORDERED: LORazepam 1 MG TAB PO PRN ×2 (01:56)
[2024-06-19] MEDS: HYDROmorphone 1 MG/ML 1 ML SYRINGE IVP PRN (02:25)
[2024-06-19] MEDS: SODIUM CHLORIDE 0.9% 1,000 ML IV SCH (02:26)
[2024-06-19] MEDS: HYDROmorphone 1 MG/ML 1 ML SYRINGE IM STA (02:46)
[2024-06-19] MEDS: SODIUM CHLORIDE 0.9% 1,000 ML IV STA (02:57)
--- NOTE | 2024-06-19 03:09 | XR ---
EXAM: XR Chest, 1 View CLINICAL HISTORY: Chest pain TECHNIQUE: Frontal view of the chest. COMPARISON: 11/14/2023. FINDINGS: Lungs: No infiltrate. No atelectasis. No CHF. Pleural space: No pleural effusion. No pneumothorax. Heart: Status post atrial appendage clip. No cardiomegaly. Mediastinum: Unremarkable. Normal mediastinal contour. Bones/joints: Status post sternotomy. No acute fracture. IMPRESSION: No acute abnormality.
[2024-06-19] MEDS: DEXTROSE 5%-0.45% NACL 1,000 ML IV SCH (05:39)
[2024-06-19] MEDS: PANTOPRAZOLE 40 MG/10 ML VIAL IV SCH (08:39)
[2024-06-19] MEDS: amLODIPine 5 MG TAB PO SCH (09:55)
[2024-06-19] MEDS: CLOPIDOGREL 75 MG TAB PO SCH (09:55)
[2024-06-19] MEDS: CHLORTHALIDONE 25 MG TAB PO SCH (09:55)
[2024-06-19] MEDS: ASPIRIN 81 MG PO SCH (09:55)
[2024-06-19] MEDS: ISOSORBIDE MONONITRATE ER 30 MG TAB.ER.24H PO SCH (09:55)
[2024-06-19] MEDS: METOPROLOL TARTRATE 25 MG TAB PO SCH (09:55)
[2024-06-19] MEDS: lisinopriL 10 MG TAB PO SCH (09:55)
[2024-06-19] MEDS: ONDANSETRON 4 MG/2 ML VIAL IVP PRN (10:31)
[2024-06-19] MEDS ORDERED: PANTOPRAZOLE 40 MG TABLET PO PRN (10:46)
[2024-06-19] MEDS ORDERED: NITROGLYCERIN SL TABS 0.4 MG TAB SUBLINGUAL PRN (10:46)
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
[2024-06-19] MEDS: cloNIDine HCL 0.1 MG TAB PO SCH ×2 (13:58→15:53)
[2024-06-19] MEDS: LORazepam 0.5 MG TAB PO PRN (14:47)
[2024-06-19] MEDS: LOSARTAN 50 MG TAB PO SCH (15:52)
[2024-06-19] MEDS: hydrALAZINE HCL 20 MG/ML 1 ML VIAL IVP STA (15:53)
--- NOTE | 2024-06-19 16:43 | US ---
EXAMINATION TYPE: US arterial LE multi level DATE OF EXAM: 06/19/2024 12:43 PM COMPARISONS: US 2020 CLINICAL INDICATION: Male, 59 years old with history of History of iliac artery aneurysm; TECHNIQUE: Systolic pressures were taken of the upper and lower extremity arteries with ankle-brachia l indices and toe brachial indices calculated bilaterally. FINDINGS: Doppler Waveforms: Right: Multiphasic Left: Multiphasic Brachial Artery systolic pressure: Right: Deferred Left: 176 Posterior Tibial artery systolic pressure: Right: 210 Left: 212 Dorsalis Pedis artery systolic pressure: Right: 218 Left: 210 Ankle-Brachial Indices: Right: 1.24 Left: 1.20 Diffuse elevated systolic pressures. IMPRESSION: RYAN: Right: Normal 0.9 - 1.4, Recommendation: None Left: Normal 0.9 - 1.4, Recommendation: None [facility], , 06/19/2024 4:41 PM
[2024-06-19] MEDS: LORazepam 1 MG TAB PO PRN (18:57)
[2024-06-19] MEDS: ATORVASTATIN 80 MG TAB PO SCH (20:43)
[2024-06-19] MEDS ORDERED: METOPROLOL TARTRATE 25 MG TAB PO SCH (21:00)
--- NOTE | 2024-06-20 00:42 | HP ---
HISTORY AND PHYSICAL CHIEF COMPLAINT: Chest pain and alcohol intoxication. HISTORY OF PRESENT ILLNESS: This gentleman has a long-standing history of coronary artery disease with a previous coronary artery bypass graft. He also has a long history of alcoholism. He has been doing fairly well, but has been drinking again of late. He also abuses analgesics. He had been in the office in some time because he was angry that he was not given narcotics last year. He then came back to the practice. He was intoxicated. He was told that he would not get opioids. He apparently went home and was drinking and then started to have chest pain and came to the emergency room. Studies were unremarkable. He is depressed. REVIEW OF SYSTEMS: States he has chest pain, but no diaphoresis or radiation of the pain. He has had no nausea, vomiting. Remainder of his history is unremarkable. PHYSICAL EXAMINATION: VITAL SIGNS: Normal. He is intoxicated. HEAD, EARS, EYES, NOSE, MOUTH AND THROAT: Normal. CHEST: Demonstrates decreased breath sounds. CARDIAC: Reveals sinus tachycardia. ABDOMEN: Soft and protuberant. EXTREMITIES: Normal. NEUROLOGIC: Intact. ASSESSMENT: He is admitted to the hospital with diagnoses; 1. Chest pain. 2. History of coronary artery disease. 3. Acute alcohol intoxication. 4. Chronic alcoholism. 5. Chronic obstructive pulmonary disease. 6. Depression. PLAN: 1. Bed rest. 2. IV fluids. 3. Serial EKGs and enzymes. 4. Consult Cardiology. 5. [facility] protocol. GLORIA / MAYURI: [id number] /
[2024-06-20 07:44] VITALS: BP 127/79; PULSE 71; RESP 18; TEMP 98.2
[2024-06-20] MEDS: POTASSIUM CHLORIDE ER 20 MEQ TAB.ER PO SCH (08:45)
[2024-06-20] MEDS: allopurinoL 100 MG TAB PO SCH (08:46)
[2024-06-20] MEDS: FOLIC ACID 1 MG TAB PO SCH (08:46)
[2024-06-20] MEDS ORDERED: ASPIRIN 81 MG PO SCH (09:00)
[2024-06-20] MEDS ORDERED: CHLORTHALIDONE 25 MG TAB PO SCH (09:00)
[2024-06-20] MEDS ORDERED: ISOSORBIDE MONONITRATE ER 30 MG TAB.ER.24H PO SCH (09:00)
[2024-06-20] MEDS ORDERED: cloNIDine HCL 0.1 MG TAB PO SCH (09:00)
[2024-06-20] MEDS ORDERED: CLOPIDOGREL 75 MG TAB PO SCH (09:00)
[2024-06-20] MEDS ORDERED: lisinopriL 10 MG TAB PO SCH (09:00)
[2024-06-20] MEDS ORDERED: ATORVASTATIN 10 MG TAB PO SCH (09:00)
--- NOTE | 2024-06-20 11:09 | P.PN ---
Subjective HISTORY OF PRESENT ILLNESS: This is a 59-year-old male with a past medical history significant for hypertension, hyperlipidemia, coronary artery disease with previous CABG, iliac artery aneurysm, alcohol abuse, nicotine dependence. Patient follows in the office with Dr. Savage. We have been asked to see the patient in consultation for chest pain. Patient examined at the bedside in the emergency room. Patient presented to the hospital with a chief complaint of chest discomfort. Patient was found to be acutely intoxicated with an alcohol level of 319. Additionally patient's blood pressure was elevated with a reading of 180/118. Pawan paul denies chest pain at the time of examination. Denies shortness of breath. DIAGNOSTICS: - EKG reveals sinus mechanism with no signs of acute ischemia. - Chest xray negative for acute process. - Laboratory data: WBC 4.57. Hemoglobin 13.0. Platelet count 205. Sodium 145. Potassium 3.8. BUN 21. Creatinine 1.72. Magnesium 1.6. Troponin negative x 3. - Current home cardiac medications include lisinopril 10 mg daily, clonidine 0.1 mg daily, rosuvastatin 5 mg daily, metoprolol tartrate 25 mg twice a day, Imdur 30 mg daily, Plavix 75 mg daily, chlorthalidone 25 mg daily, aspirin 81 mg daily. - Most recent echocardiogram obtained in October 2023 revealing ejection fraction 55 to 60% with trace TR -Patient underwent dobutamine stress echo in February 2023 which was negative for ischemia -Patient underwent four-vessel CABG in April 2021 with AZUL to LAD and diagonal, radial artery graft to OM, SVG to PDA 06/20/2024 Patient examined this morning at bedside. Patient currently denies chest pain or pressure. He denies shortness of breath. Vital signs are stable. PHYSICAL EXAM: VITAL SIGNS: Reviewed. GENERAL: Well-developed in no acute distress. HEENT: Head is normocephalic. Pupils are equal, round. Sclerae anicteric. Mucous membranes of the mouth are moist. Neck supple. No JVD or thyromegaly LUNGS: Respirations even and unlabored. Lungs essentially clear to auscultation bilaterally. HEART: Regular rate and rhythm. S1 and S2 heard. ABDOMEN: Soft. Nondistended. Nontender. EXTREMITIES: Normal range of motion. No clubbing or cyanosis. Peripheral pulses intact. No lower extremity edema NEUROLOGIC: Awake and alert. Oriented x 3. ASSESSMENT: Chest pain, troponin negative x 3 Hypertensive emergency Acute alcohol intoxication Coronary artery disease with previous CABG History of iliac artery aneurysm Hypertension Hyperlipidemia History of alcohol abuse Nicotine dependence PLAN: Continue current cardiac medications Patient is stable for discharge home today from a cardiac standpoint Patient to follow-up postdischarge in the office with Dr. Savage Nurse practitioner note has been reviewed by physician. Signing provider agrees with the documented findings, assessment, and plan of care documented by EMU FARM WORKER as a scribe. Objective - Vital Signs Vital signs: Vital Signs Temp 98.2 F 06/20/24 07:00 Pulse 71 06/20/24 07:00 Resp 18 06/20/24 07:00 BP 127/79 06/20/24 07:00 Pulse Ox 98 06/20/24 07:00 FiO2 Intake & Output 06/19/24 06/20/24 06/20/24 18:59 06:59 18:59 Weight 97.976 kg Other: # Voids 3 - Labs CBC & Chem 7: 06/19/24 00:59 06/19/24 00:59
--- NOTE | 2024-06-20 13:31 | PN ---
PROGRESS NOTE DATE OF SERVICE: 06/20/2024 CHIEF COMPLAINT: 1. Chest pain. 2. Acute alcohol intoxication. 3. History of coronary artery disease. 4. Chronic alcoholism. 5. Depression. 6. Acute kidney injury. HISTORY OF PRESENT ILLNESS: This gentleman is doing fairly well. He has been seen by Cardiology. He is not complaining of chest pain right now. He is not in DTs. PHYSICAL EXAMINATION: CHEST: Clear. CARDIAC: Exam is normal. ABDOMEN: Soft, nontender. IMPRESSION: 1. Chest pain. 2. Extensive history of coronary artery disease. 3. Acute alcohol intoxication. 4. Chronic alcoholism. 5. Chronic kidney disease. PLAN: 1. Nephrology consult. 2. Continue with IV fluids. 3. Await any recommendations from Cardiology. MMODL / ANTONELLAN: [id number] /
--- NOTE | 2024-06-21 00:01 | DS ---
DISCHARGE SUMMARY CHIEF COMPLAINT: Chest pain and acute alcohol intoxication. HISTORY OF PRESENT ILLNESS AND PHYSICAL EXAMINATION: Details of this man's history and physical can be found in the initial workup. LABORATORY STUDIES: While he is in the hospital, he had laboratory studies, details of which can be found in the laboratory section of his chart. COURSE IN THE HOSPITAL: After admission, he was placed on bedrest, he was started on intravenous fluids and CIWA protocol. While he was in the hospital, it was also noted that his GFR dropped dramatically into the 40s and he was referred to Nephrology. He was seen by Cardiology, who felt nothing further could be done given the fact that he has had numerous cardiac workups and procedures and his troponins were normal. He was referred to Psychiatry for depression. He was complaining about not getting his opioid narcotics for pain. He was explained intoxicated on top of the fact that he had substance abuse problem and that these would not be given to him while he was in the hospital. He had left the practice for a while because he is angry about not getting enough opioids. He came back recently and was offered the opportunity to start Suboxone, but he failed to come to the induction appointment. He signed out AMA. FINAL DIAGNOSES: 1. Chest pain. 2. Unstable angina pectoris. 3. Coronary artery disease. 4. Acute alcohol intoxication. 5. Chronic alcoholism. 6. Chronic kidney disease. 7. Depression. 8. Opioid abuser. OPERATIONS: None. CONSULTATIONS: Cardiology, Psychiatry, and Nephrology. MMODL / IJN: [id number] /
[2024-06-21] MEDS ORDERED: PANTOPRAZOLE 40 MG TABLET PO SCH (07:30)
== END 2024-06-20 13:20 | disposition left against medical advice (07) ==
LOC: EC 00:20 → 6NMEDSUR 01:56
PROVIDERS: ADMIT Family Medicine; ATTEND Family Medicine
DX: I25.110 Atherosclerotic heart disease of native coronary artery with unstable angina pectoris (principal); F10.229 Alcohol dependence with intoxication, unspecified; F10.239 Alcohol dependence with withdrawal, unspecified; I16.1 Hypertensive emergency; N17.9 Acute kidney failure, unspecified; I12.9 Hypertensive chronic kidney disease with stage 1 through stage 4 chronic kidney disease, or unspecified chronic kidney disease; E78.5 Hyperlipidemia, unspecified; N18.9 Chronic kidney disease, unspecified; F11.10 Opioid abuse, uncomplicated; J44.9 Chronic obstructive pulmonary disease, unspecified; I72.3 Aneurysm of iliac artery; M54.9 Dorsalgia, unspecified; F33.40 Major depressive disorder, recurrent, in remission, unspecified; F43.10 Post-traumatic stress disorder, unspecified; I25.2 Old myocardial infarction; F17.290 Nicotine dependence, other tobacco product, uncomplicated; Z79.82 Long term (current) use of aspirin; Z79.02 Long term (current) use of antithrombotics/antiplatelets; Z79.899 Other long term (current) drug therapy; Z95.1 Presence of aortocoronary bypass graft; Z53.29 Procedure and treatment not carried out because of patient's decision for other reasons
CPT/HCPCS: 96376 ×3; 96361; 96374; 96375; 99285; 36415; 93005; 83880; 80053; 83690; 83735; 84484; 85025; 85610; 85730; 71045; 93922; G0378 ×2; G0480; J2270; J0360; J2405; J1171 ×2; J2470 ×2; 80320

== ENCOUNTER 2024-06-21 21:24 | Observation (INO) | payer OTHER ==
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
[2024-06-21] MEDS ORDERED: NITROGLYCERIN SL TABS 0.4 MG TAB SUBLINGUAL PRN (22:15)
[2024-06-21 23:11] LABS: Basophils # (A) 0.04 10*3/uL (0.00-0.10); Basophils % (A) 0.8 %; Eosinophils # (A) 0.07 10*3/uL (0.04-0.35); Eosinophils % (A) 1.4 %; HCT 34.2 % (39.6-50.0); HGB 12.2 g/dL (13.0-17.0); Lymphocytes # (A) 1.32 10*3/uL (0.90-5.00); Lymphocytes % (A) 27.1 %; MCH 33.1 pg (27.0-32.0); MCHC 35.7 g/dL (32.0-37.0); MCV 92.7 fL (80.0-97.0); Mean Platelet Volume 9.1 fL (9.5-12.2); Monocytes # (A) 0.42 10*3/uL (0.20-1.00); Monocytes % (A) 8.6 %; Neutrophils # (A) 3.01 10*3/uL (1.80-7.70); Neutrophils % (A) 61.9 %; Platelet Count 175 10*3/uL (140-440); RBC 3.69 10*6/uL (4.40-5.60); RDW 12.9 % (11.5-14.5); WBC 4.87 10*3/uL (4.50-10.00)
[2024-06-21] MEDS: METOPROLOL TARTRATE 25 MG TAB PO SCH (23:14)
[2024-06-21] MEDS: ATORVASTATIN 80 MG TAB PO SCH (23:14)
[2024-06-21] MEDS: ASPIRIN 81 MG PO STA (23:14)
[2024-06-21] MEDS: SODIUM CHLORIDE 0.9% 1,000 ML IV STA (23:16)
[2024-06-21] MEDS: MORPHINE SULFATE 4 MG/ML SYRINGE IV STA (23:18)
[2024-06-21 23:23] LABS: INR 0.9 (<1.2); Partial Thromboplastin Time 22.1 sec (22.0-30.0); Prothrombin Time 10.4 sec (10.0-12.5)
[2024-06-21 23:28] LABS: African American GFR (CKD) 64 (>60 ml/min/1.73 sqM); Anion Gap 14 mmol/L; Blood Urea Nitrogen 13 mg/dL (9-20); Carbon Dioxide 24 mmol/L (22-30); Chloride 100 mmol/L (98-107); Glucose 106 mg/dL (74-99); Sodium 138 mmol/L (137-145)
[2024-06-21 23:29] LABS: ALT 36 U/L (4-49); AST 50 U/L (17-59); Albumin 4.5 g/dL (3.5-5.0); Alkaline Phosphatase 46 U/L (38-126); Calcium 9.5 mg/dL (8.4-10.2); Lipase 231 U/L (23-300); Magnesium 1.5 mg/dL (1.6-2.3); Non-African American GFR(CKD) 55 (>60 ml/min/1.73 sqM); Total Bilirubin 0.6 mg/dL (0.2-1.3); Total Protein 6.9 g/dL (6.3-8.2)
[2024-06-21 23:36] LABS: NT-Pro-B-Type Natriuretic Pept 178 pg/mL
[2024-06-21 23:50] LABS: Alcohol 275 mg/dL
[2024-06-22] MEDS ORDERED: LORazepam 1 MG/0.5 ML VIAL IV PRN (00:14)
[2024-06-22] MEDS: ZIPRASIDONE 20 MG VIAL IM STA (00:40)
--- NOTE | 2024-06-22 02:15 | XR ---
EXAM: XR Chest, 2 Views CLINICAL HISTORY: ITS.REASON XR Reason: Chest Pain TECHNIQUE: Frontal and lateral views of the chest. COMPARISON: Chest x-ray of 06/19/2024. FINDINGS: Lungs: Unremarkable. No consolidative changes or pleural effusions. Pleural space: See above. Heart: Cardiomegaly. Mediastinum: Unremarkable. Normal mediastinal contour. Bones/joints: Sternotomy wires are noted in place. Osseous structures and soft tissues are unremarkable. No acute fracture. Other findings: There is mild hypoaeration. IMPRESSION: 1. Cardiomegaly. 2. Hypoaeration. 3. Sternotomy wires are noted in place.
--- NOTE | 2024-06-22 02:16 | XR ---
EXAM: XR Lumbosacral Spine, 2 or 3 Views CLINICAL HISTORY: ITS.REASON XR Reason: fall TECHNIQUE: Frontal and lateral views of the lumbar spine and sacrum. COMPARISON: No previous studies. Normal alignment of the lumbar spine. FINDINGS: Vertebrae: Pedicles are unremarkable. No acute fracture. Normal alignment. Sacrum/coccyx: Unremarkable as visualized. No acute fracture. Disc spaces: Mild degenerative disc disease. Soft tissues: Soft tissues are unremarkable. IMPRESSION: 1. No acute injury. 2. Mild degenerative disc disease.
[2024-06-22] MEDS: MORPHINE SULFATE 4 MG/ML SYRINGE IV PRN (02:25)
[2024-06-22] MEDS: LORazepam 1 MG/0.5 ML VIAL IV PRN ×2 (04:55→05:46)
[2024-06-22] MEDS: ASPIRIN 325 MG TAB PO SCH (08:00)
[2024-06-22 09:58] LABS: Chol/HDL Ratio 3.22 Ratio; LDL Cholesterol,Calculated 70.9 mg/dL (0.0-131.0)
[2024-06-22] MEDS: oxyCODONE-APAP 5-325MG 1 EACH TAB PO PRN (11:12)
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
[2024-06-22] MEDS: LIDOCAINE 4% PATCH TOPICAL SCH (17:21)
[2024-06-22] MEDS: amLODIPine 5 MG TAB PO SCH (17:21)
[2024-06-22] MEDS: LOSARTAN 25 MG TAB PO SCH (17:21)
[2024-06-22] MEDS: PANTOPRAZOLE 40 MG TABLET PO SCH (17:21)
[2024-06-22] MEDS: ISOSORBIDE MONONITRATE ER 30 MG TAB.ER.24H PO SCH (17:21)
[2024-06-22] MEDS: KETOROLAC 15 MG/ML 1 ML VIAL IVP SCH (19:55)
[2024-06-22] MEDS: chlordiazePOXIDE 25 MG CAP PO PRN (20:35)
[2024-06-23] MEDS: ASPIRIN 81 MG PO SCH (07:59)
[2024-06-23] MEDS: THIAMINE 100 MG TAB PO SCH (07:59)
[2024-06-23] MEDS: ATORVASTATIN 40 MG TAB PO SCH (08:00)
--- NOTE | 2024-06-23 10:47 | P.PN ---
Subjective HISTORY OF PRESENT ILLNESS: HPI: The patient is a 59-year-old male who presented to the hospital in an alcohol intoxication state. He reports attempting to set up a trampoline with his nephew when he fell, hitting his back and chest. On admission, he complained of substantial chest pressure and significant back pain. He has a history of CABG with a known aortic aneurysm, hypertension, dyslipidemia, iliac artery aneurysm, alcohol abuse, and smoking. He was admitted last week due to chest pain symptoms and alcohol intoxication, at which time he had elevated blood pressure of 180/100. His blood pressure was optimized with the addition of aml odipine and he was discharged with a recommendation to abstain from alcohol. Pertinent Vitals: Admission BP 130/84, HR 65 Pertinent cardiac Labs: Hb 12.2, BUN 13, Section Gang 1.4, NTproBNP 249, LDL 70, troponin (x3) negative Cardiac home meds: Documented home medication does not seem to be accurate as it does not list amlodipine which was started on last admission and he is on clonidine and beta-lurdes with Lopressor 25 mg twice daily. Pertinent cardiac testing: - Chest X-ray on this admission: No acute fractures, no significant congestion or consolidation suggestive of pneumonia or CHF - Echo (10/2023): EF 55-60%, trace MR - Dobutamine stress echo (02/2023): Negative for ischemia - Underwent 4-vessel CABG (04/2021): AZUL to diagonal, radial artery to PDA, SVG to OM, SVG to RCA - Last CT chest angiogram (09/2022): No evidence of thoracic aneurysms 06/23/2024 Patient examined this morning at the bedside. Patient currently denies chest pain or pressure. Denies shortness of breath. Blood pressure overnight in the 150s. Blood pressure this morning 179/121. Patient did receive his morning medications and repeat blood pressures in the 140s. PHYSICAL EXAM: VITAL SIGNS: Reviewed. GENERAL: Well-developed in no acute distress. NECK: Supple. No JVD or thyromegaly LUNGS: Respirations even and unlabored. Lungs essentially clear to auscultation bilaterally. HEART: Regular rate and rhythm. S1 and S2 heard. EXTREMITIES: Normal range of motion. No clubbing or cyanosis. Peripheral pulses intact. No lower extremity edema ASSESSMENT: # Chest pain and back pain after a fall from trampoline, likely musculoskeletal pain # Alcohol intoxication # History of CABG, stable CAD # History of iliac artery aneurysm, stable # Essential hypertension # Obesity # Tobacco use # Alcohol abuse PLAN: Continue current cardiac medications including amlodipine, aspirin, Lipitor, Imdur, losartan, metoprolol Increase metoprolol tartrate to 50 mg twice a day Increase amlodipine to 10 mg daily Recommend abstinence from alcohol Patient is stable for discharge home today from a cardiac standpoint Patient to follow-up postdischarge in the office with Dr. Savage Nurse practitioner note has been reviewed by physician. Signing provider agrees with the documented findings, assessment, and plan of care documented by [employer]ER as a scribe. Objective - Vital Signs Vital signs: Vital Signs Temp 97.9 F 06/23/24 07:55 Pulse 99 06/23/24 07:55 Resp 18 06/23/24 07:55 BP 179/121 06/23/24 07:55 Pulse Ox 98 06/23/24 07:55 FiO2 Intake & Output 06/22/24 06/23/24 06/23/24 18:59 06:59 18:59 Intake Total 222 200 454 Output Total 0 0 Balance 222 200 454 Weight 90.6 kg Intake: IV 10 Invasive Line 1 10 Oral 222 200 444 Output: Gastric Drainage 0 Urine 0 Stool 0 0 Urine/Stool Mix 0 Emesis 0 Oral Regurgitation 0 Other 0 Other: Voiding Method Toilet Toilet Urinal Urinal # Voids 0 # Bowel Movements 0 - Labs CBC & Chem 7: 06/21/24 22:54 06/21/24 22:54
[2024-06-23] MEDS: amLODIPine 5 MG TAB PO STA (11:13)
[2024-06-23] MEDS: METOPROLOL TARTRATE 25 MG TAB PO STA (11:13)
[2024-06-23] MEDS: cloNIDine HCL 0.1 MG TAB PO SCH (17:30)
[2024-06-23] MEDS: ONDANSETRON ODT 4 MG TAB PO PRN (17:30)
[2024-06-23] MEDS: hydrALAZINE HCL 50 MG TAB PO SCH (17:30)
[2024-06-23] MEDS: diazePAM 5 MG TAB PO STA (20:03)
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
[2024-06-23] MEDS ORDERED: METOPROLOL TARTRATE 50 MG TAB PO SCH (21:00)
--- NOTE | 2024-06-23 23:33 | PN ---
PROGRESS NOTE DATE OF SERVICE: 06/22/2024 CHIEF COMPLAINT: 1. Chest pain. 2. Acute alcoholic intoxication. 3. Hypertension. 4. Chronic alcoholism. 5. Narcotic abuse. HISTORY OF PRESENT ILLNESS: This gentleman is doing fairly well. He is not tremulous. His blood pressure is fluctuating. He is to be seen by Cardiology and Psychiatry. PHYSICAL EXAMINATION: CHEST: Clear. CARDIAC: Reveals tachycardia. ABDOMEN: Soft and protuberant. IMPRESSION: 1. Chest pain. 2. Coronary artery disease. 3. Chronic alcoholism. 4. Depression. 5. Hypertension. PLAN: Increase his activity and wait for Cardiology consultation as well as Psychiatry assessment for his depression. MMODL / IJN: [id number] /
[2024-06-24] MEDS: diazePAM 5 MG TAB PO SCH ×2 (01:17→17:24)
--- NOTE | 2024-06-24 02:28 | PN ---
PROGRESS NOTE DATE OF SERVICE: 06/23/2024 CHIEF COMPLAINT: Chest pain and DTs. HISTORY OF PRESENT ILLNESS: This gentleman's blood pressure has been climbing. He has been seen by Cardiology and they have signed off. He may be going into DTs. PHYSICAL EXAMINATION: VITAL SIGNS: Blood pressure is 185/112. CHEST: Demonstrates decreased breath sounds and he has a sinus tachycardia. IMPRESSION: 1. Chest pain. 2. Acute alcohol intoxication. 3. Chronic alcoholism. 4. Delirium tremens. 5. Depression. 6. Uncontrolled hypertension. PLAN: 1. Add Catapres 0.1 t.i.d. and Apresoline 100 mg t.i.d. 2. Await psychiatric consult. MMODL / IJN: [id number] /
[2024-06-24] MEDS: amLODIPine 10 MG TAB PO SCH (09:10)
[2024-06-24] MEDS: METOPROLOL TARTRATE 50 MG TAB PO SCH (11:49)
--- NOTE | 2024-06-24 12:34 | P.PN ---
Subjective HISTORY OF PRESENT ILLNESS: HPI: The patient is a 59-year-old male who presented to the hospital in an alcohol intoxication state. He reports attempting to set up a trampoline with his nephew when he fell, hitting his back and chest. On admission, he complained of substantial chest pressure and significant back pain. He has a history of CABG with a known aortic aneurysm, hypertension, dyslipidemia, iliac artery aneurysm, alcohol abuse, and smoking. He was admitted last week due to chest pain symptoms and alcohol intoxication, at which time he had elevated blood pressure of 180/100. His blood pressure was optimized with the addition of aml odipine and he was discharged with a recommendation to abstain from alcohol. Pertinent Vitals: Admission BP 130/84, HR 65 Pertinent cardiac Labs: Hb 12.2, BUN 13, Sheet Pile Driver Operator 1.4, NTproBNP 249, LDL 70, troponin (x3) negative Cardiac home meds: Documented home medication does not seem to be accurate as it does not list amlodipine which was started on last admission and he is on clonidine and beta-lurdes with Lopressor 25 mg twice daily. Pertinent cardiac testing: - Chest X-ray on this admission: No acute fractures, no significant congestion or consolidation suggestive of pneumonia or CHF - Echo (10/2023): EF 55-60%, trace MR - Dobutamine stress echo (02/2023): Negative for ischemia - Underwent 4-vessel CABG (04/2021): AZUL to diagonal, radial artery to PDA, SVG to OM, SVG to RCA - Last CT chest angiogram (09/2022): No evidence of thoracic aneurysms 06/23/2024 Patient examined this morning at the bedside. Patient currently denies chest pain or pressure. Denies shortness of breath. Blood pressure overnight in the 150s. Blood pressure this morning 179/121. Patient did receive his morning medications and repeat blood pressures in the 140s. 06/24/2024 Patient examined this morning at bedside. Patient currently denies chest pain or pressure. He denies shortness of breath. He was evaluated by psychiatry and patient's metoprolol was discontinued by their service. PHYSICAL EXAM: VITAL SIGNS: Reviewed. GENERAL: Well-developed in no acute distress. NECK: Supple. No JVD or thyromegaly LUNGS: Respirations even and unlabored. Lungs essentially clear to auscultation bilaterally. HEART: Regular rate and rhythm. S1 and S2 heard. EXTREMITIES: Normal range of motion. No clubbing or cyanosis. Peripheral pulses intact. No lower extremity edema ASSESSMENT: # Chest pain and back pain after a fall from trampoline, likely musculoskeletal pain # Alcohol intoxication # History of CABG, stable CAD # History of iliac artery aneurysm, stable # Essential hypertension # Obesity # Tobacco use # Alcohol abuse PLAN: Continue current cardiac medications including amlodipine, aspirin, Lipitor, Imdur, losartan, metoprolol Patient started on Catapres and hydralazine by Dr. Martini Metoprolol discontinued by psychiatry. Due to history of CAD, Patient needs to be maintained on a beta-lurdes. Resume metoprolol tartrate 50 mg twice a day Recommend abstinence from alcohol Patient is stable for discharge home today from a cardiac standpoint Patient to follow-up postdischarge in the office with Dr. Savage Nurse practitioner note has been reviewed by physician. Signing provider agrees with the documented findings, assessment, and plan of care documented by POTTERY STRIPER as a scribe. Objective - Vital Signs Vital signs: Vital Signs Temp 98.0 F 06/24/24 11:50 Pulse 108 H 06/24/24 11:50 Resp 18 06/24/24 11:50 BP 151/92 06/24/24 11:50 Pulse Ox 98 06/24/24 11:50 FiO2 Intake & Output 06/23/24 06/24/24 06/24/24 18:59 06:59 18:59 Intake Total 1270 790 128 Balance 1270 790 128 Intake: IV 10 10 10 Invasive Line 1 10 10 10 Oral 1260 780 118 Other: Voiding Method Toilet Toilet Toilet Urinal # Voids 3 2 - Labs CBC & Chem 7: 06/21/24 22:54 06/21/24 22:54
[2024-06-24] MEDS: cloNIDine HCL 0.2 MG TAB PO SCH (13:36)
[2024-06-24] MEDS: LOSARTAN 50 MG TAB PO SCH (13:36)
[2024-06-24] MEDS ORDERED: traZODone HCL 50 MG TAB PO PRN (14:12)
--- NOTE | 2024-06-24 14:21 | P.PN ---
Progress Note - Text Progress Note Date: 06/24/24 Interval history: Patient was seen today for psychiatric follow-up. Patient was seen for initial psychiatric consultation by Dr. Silva yesterday and was placed on a Valium scheduled taper. Patients nurse claims that patient is doing fair at this time, CIWA's have been fairly low about 3 or 4. No significant behavioral issues. Patient was seen laying at the bedside agreeable to speak to television writer. Patient was fairly focused on his issues with his father and his family and the arguments. He is also focused with issues with his landlord and wanting to find a new place to live. He was minimizing his alcohol use and his depression and need for treatment. He was fairly focused on discharge. Claims that he is not having much withdrawal symptoms at this time has been taking medications, denies any tremors. Denies any history of withdrawal seizures or delirium tremens. Claims that he is sleeping on and off at nighttime, was not interested in talking about most medication. Claims that he is not interested in rehab and he is already plugged in with [facility] and will be going there for substance use treatment further psychiatric follow-up. Denying any auditory or visualizations denies any suicidal homicidal ideations intent or plan. MENTAL STATUS EXAM: General Appearance: Patient appears to be mildly overweight, short hair, stated age, fair hygiene and grooming. Behavior: Patient is calmly sitting up in bed, attempts to cooperate but minimizes and somewhat superficial Speech: Patient's speech is fluent and non-pressured. Mood/Affect: Patient reports their mood is "ok", affect is congruent and constricted Suicidality/Homicidality: Patient denies having any suicidal or homicidal ideation intent or plan. Perceptions: Patient denies any visual hallucinations and denies any auditory hallucinations. Though content/process: There is no evidence of any delusional thought content and thought process is generally linear. He minimizes his alcohol use and mental health issues. Memory and concentration: AOX3, grossly intact for the purposes of this session. Judgment and insight: poor, improving mildly IMPRESSIONS: Alcohol use disorder, severe Alcohol withdrawal Unspecified depressive disorder Unspecified anxiety disorder PLAN: -At this time patient DOES NOT meet criteria for inpatient psychiatric admission. -Would recommend the following medication changes/additions: Decrease scheduled Valium to 10 mg every 8 hours p.o. Continue tapering down. For alcohol withdrawal. -Continue monitoring CIWA scale. Continue to closely monitor vital signs. -Continue to monitor for safety and initiate 1:1 sitter if safety concerns arise. -Patient to follow-up with outpatient mental health/psychiatry resources at [facility]. Patient claims that he is not interested in rehab at this time and would rather do outpatient treatment. -Poker Supervisor spoke with patient about substance abuse and the harmful effects on medical and mental health, patient verbally understood and agreed. -Patient to follow-up with [facility] for substance use treatment, including AA/NA meetings in the community. -Communicated plan to patient's nurse. -At this time psychiatry will sign off. -Please contact with any questions.
[2024-06-25 03:04] VITALS: RESP 16
[2024-06-25 10:06] VITALS: BP 117/80; PULSE 75; TEMP 97.8
--- NOTE | 2024-06-25 14:48 | PN ---
PROGRESS NOTE DATE OF SERVICE: 06/24/2024 CHIEF COMPLAINT: Chest pain, acute alcohol intoxication, DTs, and hypertension. HISTORY OF PRESENT ILLNESS: This gentleman has been seen by Psychiatry. He was placed on Valium. I am concerned about that drug in this individual. He definitely will not be sent home on it, because he cannot be trusted not to drink. Blood pressure is still elevated and this is being worked on. Cardiology signed off. PHYSICAL EXAMINATION: CHEST: Clear. CARDIAC: Exam is normal. ABDOMEN: Protuberant, soft, and nontender. IMPRESSION: 1. Chest pain. 2. Coronary artery disease. 3. Acute alcohol intoxication. 4. Chronic alcoholism. 5. Depression. 6. Chronic low back pain. PLAN: Increase his hypertensive medications. He could probably go home tomorrow, if his blood pressure responds. MMODL / IJN: [id number] /
--- NOTE | 2024-06-26 08:00 | DS ---
DISCHARGE SUMMARY CHIEF COMPLAINT: Chest pain and acute alcohol intoxication. HISTORY OF PRESENT ILLNESS AND PHYSICAL EXAMINATION: Details of this man's history and physical can be found in the initial workup. LABORATORY STUDIES: While he was in the hospital, he had laboratory studies, details of which can be found in the laboratory section of his chart. COURSE IN THE HOSPITAL: After admission, he was placed on bedrest. Started on intravenous fluids and he had serial EKGs and enzymes which were normal. He was placed on a CIWA protocol. He was seen by Cardiology who felt they had nothing further to offer him. Balance of his hospitalization was then involved with managing his DTs and hypertension. He was very adamant and argumentative about getting narcotic analgesics. Toward the end of his hospitalization, it was explained that we will no longer give him tranquilizers, narcotic, analgesics, etc. because he will not stop drinking. While he was in the hospital, he was seen for his depression by Psychiatry and they put him on Valium. This will be stopped. He was going to be discharged, but then it was found that he was still getting morphine IV and was decided to stop this and wait another day in case he had any withdrawal symptoms. In the meantime, he signed out against medical advice. FINAL DIAGNOSES: 1. Chest pain. 2. Coronary artery disease. 3. Acute alcohol intoxication. 4. Delirium tremens. 5. Chronic alcoholism. 6. Narcotic dependency. 7. Depression. OPERATIONS: None. CONSULTATIONS: Cardiology and Psychiatry. GLORIA / MAYURI: [id number] /
--- NOTE | 2024-06-30 09:58 | HP ---
HISTORY AND PHYSICAL CHIEF COMPLAINT: Chest pain and alcoholism. HISTORY OF PRESENT ILLNESS: This is another of many admissions for this is gentleman with longstanding, severe coronary artery disease and chronic alcoholism. He has been very noncompliant and is always asking for analgesics for his back pain, even though he is always intoxicated. The narcotics are being abused so there was a discussion about possibly using Suboxone to which he agreed, but then he never showed up. In the emergency room, enzymes are normal. He has been seen by the director of income tax on numerous different occasions and there is not anything that they feel could be done further. REVIEW OF SYSTEMS: The patient denies diaphoresis, shortness of breath. Past medical history, family history and personal and social histories are otherwise unchanged from his recent admitting and discharge summaries. PHYSICAL EXAMINATION: VITAL SIGNS: Normal. GENERAL: Face is flushed. CHEST: Demonstrates decreased breath sounds. CARDIAC: Demonstrates sinus tachycardia. ABDOMEN: Protuberant, soft and nontender without any visceromegaly or masses. Bowel sounds are present. EXTREMITIES: Normal. NEUROLOGIC: He is intact. He is intoxicated. He is admitted to the hospital. DIAGNOSES: 1. Chest pain. 2. Coronary artery disease. 3. Acute alcohol intoxication. 4. Impending delirium tremens. 5. Chronic alcoholism. 6. Low back pain. 7. Depression. 8. Narcotic abuse. PLAN: 1. Bedrest. 2. IV fluids. 3. CIWA protocol. 4. Cardiology consult. 5. Psychiatric consult for depression. MMODL / IJN: [id number] /
== END 2024-06-25 12:24 | disposition left against medical advice (07) ==
LOC: EC 21:24 → 6NMEDSUR 22:15 → 3SCARD 23:59
PROVIDERS: ADMIT Family Medicine; ATTEND Family Medicine
DX: R07.89 Other chest pain (principal); F10.231 Alcohol dependence with withdrawal delirium; F10.229 Alcohol dependence with intoxication, unspecified; F11.20 Opioid dependence, uncomplicated; M54.50 Low back pain, unspecified; W17.89XA Other fall from one level to another, initial encounter; I25.10 Atherosclerotic heart disease of native coronary artery without angina pectoris; I72.3 Aneurysm of iliac artery; I71.9 Aortic aneurysm of unspecified site, without rupture; M54.2 Cervicalgia; E78.5 Hyperlipidemia, unspecified; I10 Essential (primary) hypertension; E66.9 Obesity, unspecified; F32.A Depression, unspecified; F41.9 Anxiety disorder, unspecified; F17.200 Nicotine dependence, unspecified, uncomplicated; Z79.82 Long term (current) use of aspirin; Z79.899 Other long term (current) drug therapy; Z95.1 Presence of aortocoronary bypass graft; Z53.29 Procedure and treatment not carried out because of patient's decision for other reasons; Z79.02 Long term (current) use of antithrombotics/antiplatelets; Z91.199 Patient's noncompliance with other medical treatment and regimen due to unspecified reason
CPT/HCPCS: 96376 ×4; 96361 ×3; 96375; 96372; 96374; 99285; 93005; 83880; 80061; 80053; 83690; 83735; 84484 ×2; 85025; 85610; 85730; 72100; 71046; G0378 ×5; G0480; J2060 ×2; J2270 ×5; J3486; J1885 ×2; 80320

== ENCOUNTER 2024-06-26 21:45 | Emergency (ER) | payer OTHER ==
[2024-06-26 21:51] VITALS: TEMP 99
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
[2024-06-27] MEDS: OLANZapine 10 MG VIAL IM STA (00:15)
--- NOTE | 2024-06-27 00:46 | XR ---
EXAM: XR Chest, 2 Views CLINICAL HISTORY: ITS.REASON XR Reason: Chest Pain TECHNIQUE: Frontal and lateral views of the chest. COMPARISON: CXR June 21, 2024. FINDINGS: Lungs: Unremarkable. No consolidation. Pleural space: Unremarkable. No pneumothorax. Heart: LEFT atrial appendage clip. Mediastinum: Unremarkable. Bones/joints: Sternotomy wires. IMPRESSION: No acute findings in the chest.
[2024-06-27 03:02] VITALS: BP 125/76
[2024-06-27 03:34] VITALS: PULSE 100; RESP 17
== END 2024-06-27 03:34 | disposition home or self-care (01) ==
LOC: EC 21:45
DX: F10.129 Alcohol abuse with intoxication, unspecified (principal); F17.200 Nicotine dependence, unspecified, uncomplicated
CPT/HCPCS: 71046; 82075; 93005; 96372; 99284

== ENCOUNTER 2024-06-28 | Emergency (ER) | payer OTHER ==
[2024-06-28 00:15] VITALS: BP 131/82; PULSE 109; RESP 17; TEMP 97.9
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
[2024-06-28] MEDS: IBUPROFEN 800 MG TAB PO STA (01:17)
[2024-06-28] MEDS: LIDOCAINE 4% PATCH TOPICAL ONE (01:18)
--- NOTE | 2024-06-28 02:12 | XR ---
EXAM: XR Cervical Spine, 2 or 3 Views CLINICAL HISTORY: ITS.REASON XR Reason: neck pain TECHNIQUE: Frontal and lateral views of the cervical spine. COMPARISON: No relevant prior studies available. FINDINGS: Vertebrae: No acute fracture. Minimal retrolisthesis C5 on C6 Disc spaces: Moderate disc at C5-C7. Soft tissues: Unremarkable. IMPRESSION: No acute osseous findings.
--- NOTE | 2024-06-28 02:45 | XR ---
EXAM: XR Right Shoulder Complete, 2 or More Views CLINICAL HISTORY: ITS.REASON XR Reason: right shoulder injury TECHNIQUE: Two or more views of the right shoulder. COMPARISON: No relevant prior studies available. FINDINGS: Bones/joints: No acute fracture. No dislocation. Mild AC joint osteoarthrosis. Soft tissues: Unremarkable. IMPRESSION: No acute osseous abnormalities.
[2024-06-28] MEDS: ACETAMINOPHEN TAB 500 MG TAB PO STA (03:05)
== END 2024-06-28 03:06 | disposition home or self-care (01) ==
LOC: EC
DX: S46.911A Strain of unspecified muscle, fascia and tendon at shoulder and upper arm level, right arm, initial encounter (principal); F17.200 Nicotine dependence, unspecified, uncomplicated; X58.XXXA Exposure to other specified factors, initial encounter; Y04.0XXA Assault by unarmed brawl or fight, initial encounter
CPT/HCPCS: 72040; 99285

== ENCOUNTER 2024-06-30 22:54 | Emergency (ER) | payer OTHER ==
[2024-06-30 23:05] VITALS: TEMP 98.9
[2024-06-30 23:07] VITALS: RESP 18
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
[2024-06-30] MEDS: ASPIRIN 81 MG PO STA (23:34)
[2024-06-30 23:43] LABS: ALT 30 U/L (4-49); AST 43 U/L (17-59); African American GFR (CKD) 66 (>60 ml/min/1.73 sqM); Albumin 4.9 g/dL (3.5-5.0); Alkaline Phosphatase 49 U/L (38-126); Anion Gap 15 mmol/L; Basophils # (A) 0.07 10*3/uL (0.00-0.10); Basophils % (A) 0.9 %; Blood Urea Nitrogen 19 mg/dL (9-20); Calcium 9.7 mg/dL (8.4-10.2); Carbon Dioxide 19 mmol/L (22-30); Chloride 108 mmol/L (98-107); Eosinophils # (A) 0.05 10*3/uL (0.04-0.35); Eosinophils % (A) 0.6 %; Glucose 107 mg/dL (74-99); HCT 35.1 % (39.6-50.0); HGB 12.6 g/dL (13.0-17.0); Lymphocytes % (A) 28.7 %; MCH 33.9 pg (27.0-32.0); MCHC 35.9 g/dL (32.0-37.0); MCV 94.4 fL (80.0-97.0); Magnesium 1.3 mg/dL (1.6-2.3); Mean Platelet Volume 9.2 fL (9.5-12.2); Monocytes # (A) 0.86 10*3/uL (0.20-1.00); Monocytes % (A) 10.7 %; Neutrophils % (A) 58.7 %; Non-African American GFR(CKD) 57 (>60 ml/min/1.73 sqM); Platelet Count 317 10*3/uL (140-440); Potassium 3.9 mmol/L (3.5-5.1); RBC 3.72 10*6/uL (4.40-5.60); RDW 13.6 % (11.5-14.5); Sodium 142 mmol/L (137-145); Total Bilirubin 0.5 mg/dL (0.2-1.3); Total Protein 7.6 g/dL (6.3-8.2); WBC 8.01 10*3/uL (4.50-10.00)
[2024-07-01 00:32] LABS: INR 0.9 (<1.2); Partial Thromboplastin Time 22.1 sec (22.0-30.0); Prothrombin Time 10.3 sec (10.0-12.5)
[2024-07-01 00:34] VITALS: BP 131/76; PULSE 97
--- NOTE | 2024-07-01 01:20 | XR ---
EXAM: XR Chest, 2 Views CLINICAL HISTORY: chest pain TECHNIQUE: Frontal and lateral views of the chest. COMPARISON: 06/19/2024 FINDINGS: Lungs: Unremarkable. No consolidation. Pleural space: Unremarkable. Mediastinum: Sternal wires, mediastinal and atrial clip are again noted. Bones/joints: No acute findings. IMPRESSION: No acute findings in the chest.
== END 2024-07-01 00:38 | disposition home or self-care (01) ==
LOC: EC 22:54
DX: R07.9 Chest pain, unspecified (principal); E78.5 Hyperlipidemia, unspecified; I10 Essential (primary) hypertension; F17.200 Nicotine dependence, unspecified, uncomplicated
CPT/HCPCS: 36415; 71046; 80053; 83735; 84484; 85025; 85610; 85730; 99285

== ENCOUNTER 2024-07-02 05:00 | Emergency (ER) | payer OTHER ==
[2024-07-02 05:07] VITALS: RESP 18; TEMP 98.2
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
[2024-07-02 05:26] LABS: Basophils # (A) 0.06 10*3/uL (0.00-0.10); Basophils % (A) 1.4 %; Eosinophils # (A) 0.04 10*3/uL (0.04-0.35); HCT 33.6 % (39.6-50.0); HGB 11.5 g/dL (13.0-17.0); Lymphocytes % (A) 36.2 %; MCH 32.7 pg (27.0-32.0); MCHC 34.2 g/dL (32.0-37.0); MCV 95.5 fL (80.0-97.0); Mean Platelet Volume 9.3 fL (9.5-12.2); Monocytes % (A) 12.1 %; Neutrophils # (A) 2.02 10*3/uL (1.80-7.70); Neutrophils % (A) 48.8 %; Platelet Count 288 10*3/uL (140-440); RBC 3.52 10*6/uL (4.40-5.60); RDW 13.7 % (11.5-14.5); WBC 4.14 10*3/uL (4.50-10.00)
[2024-07-02 05:38] LABS: ALT 28 U/L (4-49); AST 46 U/L (17-59); African American GFR (CKD) 66 (>60 ml/min/1.73 sqM); Albumin 4.4 g/dL (3.5-5.0); Alkaline Phosphatase 43 U/L (38-126); Anion Gap 15 mmol/L; Blood Urea Nitrogen 19 mg/dL (9-20); Calcium 9.2 mg/dL (8.4-10.2); Carbon Dioxide 21 mmol/L (22-30); Chloride 109 mmol/L (98-107); Glucose 105 mg/dL (74-99); Non-African American GFR(CKD) 57 (>60 ml/min/1.73 sqM); Sodium 145 mmol/L (137-145); Total Bilirubin 0.4 mg/dL (0.2-1.3); Total Protein 6.8 g/dL (6.3-8.2)
--- NOTE | 2024-07-02 06:06 | XR ---
EXAM: XR Lumbosacral Spine, 2 or 3 Views CLINICAL HISTORY: fall TECHNIQUE: Frontal and lateral views of the lumbar spine and sacrum. COMPARISON: 06/21/24 FINDINGS: Vertebrae: Unremarkable. No fracture. Normal alignment. Sacrum/coccyx: Unremarkable as visualized. No fracture. Disc spaces: Mild degenerative disc disease. Soft tissues: Paravertebral soft tissues appear normal. Vasculature: Extensive aortic calcifications. IMPRESSION: No acute findings or substantial change
--- NOTE | 2024-07-02 06:08 | XR ---
EXAM: XR Chest, 2 Views CLINICAL HISTORY: fall TECHNIQUE: Frontal and lateral views of the chest. COMPARISON: 06/19/24 FINDINGS: Lungs: Unremarkable. No consolidation. Pleural space: Unremarkable. Mediastinum: Sternal wires, mediastinal clips, and atrial appendage clip are again noted. Bones/joints: No acute findings. IMPRESSION: No acute findings or substantial change
[2024-07-02] MEDS: HYDROcodone/APAP 5-325MG 1 EACH TAB PO STA (06:23)
[2024-07-02 06:28] VITALS: BP 132/86; PULSE 82
== END 2024-07-02 06:32 | disposition home or self-care (01) ==
LOC: EC 05:00
DX: S39.012A Strain of muscle, fascia and tendon of lower back, initial encounter (principal); I48.91 Unspecified atrial fibrillation; Z95.1 Presence of aortocoronary bypass graft; F17.200 Nicotine dependence, unspecified, uncomplicated; X58.XXXA Exposure to other specified factors, initial encounter
CPT/HCPCS: 36415; 71046; 72100; 80053; 84484; 85025; 93005; 99285

== ENCOUNTER 2024-07-03 00:35 | Emergency (ER) | payer OTHER ==
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
[2024-07-03] MEDS: LIDOCAINE 4% PATCH TOPICAL ONE (01:08)
[2024-07-03] MEDS: HYDROcodone/APAP 5-325MG 1 EACH TAB PO STA (01:10)
[2024-07-03] MEDS: oxyCODONE-APAP 7.5-325MG 1 EACH TAB PO STA (02:18)
[2024-07-03] MEDS: NICOTINE 21MG/24HR PATCH TRANSDERM STA (04:33)
[2024-07-03 09:33] VITALS: RESP 20
[2024-07-03 11:41] VITALS: BP 182/112; PULSE 129; TEMP 98.6
== END 2024-07-03 11:48 | disposition home or self-care (01) ==
LOC: EC 00:35
DX: F32.A Depression, unspecified (principal); F17.200 Nicotine dependence, unspecified, uncomplicated
CPT/HCPCS: 82075; 99285; 96372; S4990; J3360

== ENCOUNTER 2024-08-12 17:38 | Emergency (ER) | payer OTHER ==
[2024-08-12 18:15] VITALS: RESP 18
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
--- NOTE | 2024-08-12 19:35 | CT ---
EXAMINATION TYPE: CT brain cspine wo con CT DLP: 1701.3 mGycm, Automated exposure control for dose reduction was used. DATE OF EXAM: 08/12/2024 7:21 PM COMPARISON: CT brain C-spine 04/27/2023. CLINICAL INDICATION:Male, 59 years old with history of pain; fall, etoh, pain TECHNIQUE: Brain: Multiple axial CT images of the brain were obtained without IV contrast. Cspine: Axial CT images from the skull base to the inferior aspect of T2 we obtained without intraven ous contrast. Coronal and sagittal reformatted images were also reviewed. FINDINGS: Brain: Extra-axial spaces: No abnormal extra-axial fluid collections. Ventricular system: Within normal limits Cerebral parenchyma: Mild atrophy of the bilateral frontal lobes. No acute intraparenchymal hemorrhag e or mass effect. The sarmiento-white junction is well differentiated. Cerebellum: Unremarkable. Mass effect: No evidence of midline shift. Intracranial vasculature: Atherosclerotic calcifications of the intracranial vessels. Soft tissues: Normal. Calvarium/osseous structures: No depressed skull fracture. Paranasal sinuses and mastoid air cells: Mastoid air cells are clear. Mild mucosal thickening of the inferior right maxillary sinus. The remaining paranasal sinuses are clear. Visualized orbits: Bilateral aphakia Cervical spine: Fracture: None. Osseous structures: Sternotomy changes partially visualized. Multilevel disc space narrowing with end plate sclerosis of the lower cervical spine. Prominent right-sided facet arthropathy at C2-C3. Vertebral alignment: Within normal limits. Spinal canal/Neural Foramina: Disc osteophyte complex at C6-C7 with at least mild spinal canal stenos is. Facet joint uncovertebral joint arthropathy scattered throughout the cervical spine with varying degrees of neural foraminal stenosis. Neck soft tissues: Prevertebral soft tissues are within normal limits. Other: The airway is patent. The lung apices are clear. Bilateral carotid bulb calcifications. Left t hyroid lobe 1.3 cm hypodense nodule. IMPRESSION: 1. No acute intracranial process. 2. No evidence of cervical spine fracture. 3. Mild multilevel degenerative disc disease. Most pronounced at C6-C7. [facility], , 08/12/2024 7:33 PM
[2024-08-13 00:33] VITALS: BP 183/115; PULSE 81; TEMP 97.8
== END 2024-08-13 00:33 | disposition home or self-care (01) ==
LOC: EC 17:38
DX: S50.01XA Contusion of right elbow, initial encounter (principal); R07.9 Chest pain, unspecified; I10 Essential (primary) hypertension; E78.5 Hyperlipidemia, unspecified; F17.200 Nicotine dependence, unspecified, uncomplicated; W18.30XA Fall on same level, unspecified, initial encounter; Y93.55 Activity, bike riding
CPT/HCPCS: 70450; 72125; 93005; 99284